=== PATIENT | female | born 1965 | race Caucasian/White ===

== ENCOUNTER 2022-09-16 08:58 | Outpatient (OUT) | payer OTHER, SELFPAY ==
--- NOTE | 2022-09-16 09:11 | MM_ITS ---
Patient: KASSANDRA LOPEZ Exam Date: 09/16/2022 : 1965 Gender:F Ordering : DR Rojelio Lau . Admission #: [id number] Family : Order #: [id number] CLICK HERE TO VIEW EXAM RADIOLOGY REPORT PROCEDURE: MM TOMOSYNTHESIS SCREENING BI COMPARISON: MG MAMM SCREEN 3D NELSON CAD, 04/11/2021. MG MAMM NELSON SCRN W CAD DIG, 12/18/2015. MG MAMM NELSON SCRN W CAD DIG, 09/27/2014. MG MAMM NELSON SCRN W CAD DIG, 06/21/2012. INDICATIONS: Screening Calculator Name NCI Breast Cancer Risk Assessment Tool 5 Year Breast Cancer Risk 1.10% Lifetime Breast Cancer Risk 7.10% Personal Breast Cancer No Personal Ovarian Cancer No Treatments None Family Cancers None LOCATION: [facility] BREAST COMPOSITION: Scattered areas fibroglandular density. FINDINGS: DIAGNOSTIC CATEGORY 2--BENIGN FINDING: RIGHT BREAST: No significant suspicious finding. No significant change has occurred. LEFT BREAST: No significant suspicious finding. Scattered benign-appearing lymph nodes are present. No significant change has occurred. RECOMMENDATIONS: ROUTINE MAMMOGRAM AND CLINICAL EVALUATION IN 12 MONTHS. PLEASE NOTE: A NORMAL MAMMOGRAM DOES NOT EXCLUDE THE POSSIBILITY OF BREAST CANCER. A CLINICALLY SUSPICIOUS PALPABLE LUMP SHOULD BE BIOPSIED. Dictated by: Evan Carlin M.D. on 09/16/2022 at 14:03 Approved by: Evan Carlin M.D. on 09/16/2022 at 14:09
== END 2022-09-16 08:59 ==
LOC: MAMMO 09:04
PROVIDERS: PCP Family Medicine; Visit Provider Family Medicine
DX: Z12.31 Encounter for screening mammogram for malignant neoplasm of breast (principal)
CPT/HCPCS: 77063; 77067

== ENCOUNTER 2022-12-02 08:09 | Outpatient (RCR) | payer OTHER, SELFPAY | END 2023-04-05 08:09 | disposition home or self-care (01) | LOC: OT 08:09 | PROVIDERS: PCP Family Medicine; Visit Provider Nurse Practitioner Family | DX: G56.02 Carpal tunnel syndrome, left upper limb (principal); Z98.890 Other specified postprocedural states | CPT/HCPCS: 97035; 97140; 97166; 97530 ==

== ENCOUNTER 2023-01-22 15:40 | Outpatient (OUT) | payer OTHER, SELFPAY ==
--- NOTE | 2023-01-22 | XR_ITS ---
The [address] [address] Patient Name: KASSANDRA LOPEZ MRN: [id number] date: 1965 Sex: F Assigned Patient Location: [facility] Current Patient Location: [facility] Accession/Order Number: [id number] Exam Date: 01/22/2023 10:30 Report Date: 01/22/2023 13:05 At the request of: NOEMI ORELLANA Procedure: XR foot LT min 3V EXAM: XR foot LT min 3V HISTORY: LEFT FOOT PAIN . The patient has pain in the heel for the past 6 months. COMPARISON: None. TECHNIQUE: 4 views of the left foot were obtained. FINDINGS: There is no evidence of an acute fracture or dislocation. A small calcification or possibly a remote chip fracture seen at the base of the fifth metatarsal bone. The joint spaces are relatively intact throughout. A small osteophyte arises from the plantar aspect of the calcaneus. A small amount of calcification is seen in the Achilles tendon near the insertion site. No other soft tissue calcifications are identified. XR/XR foot LT min 3V IMPRESSION: No acute fracture or dislocation. The joint spaces are intact. A small osteophyte arises from the plantar aspect of the calcaneus. Direct comparison with a previous study would be helpful in confirming the chronicity of these findings. Electronically authenticated by: POLY HENSLEY Date: 01/22/2023 13:05
== END 2023-01-22 15:41 | disposition home or self-care (01) ==
LOC: RAD 15:40
PROVIDERS: PCP Family Medicine; Visit Provider Physician Assistant
DX: M79.672 Pain in left foot (principal)
CPT/HCPCS: 73630

== ENCOUNTER 2023-01-28 07:26 | Outpatient (RCR) | payer OTHER, SELFPAY | END 2023-04-05 08:00 | disposition home or self-care (01) | LOC: PT 07:26 | PROVIDERS: PCP Family Medicine; Visit Provider Physician Assistant | DX: M72.2 Plantar fascial fibromatosis (principal) | CPT/HCPCS: 97110; 97112; 97140; 97162 ==

== ENCOUNTER 2023-04-06 09:11 | Outpatient (RCR) | payer OTHER, SELFPAY | END 2023-04-07 15:49 | disposition home or self-care (01) | LOC: PT 09:11 | PROVIDERS: PCP Family Medicine; Visit Provider Physician Assistant | DX: M72.2 Plantar fascial fibromatosis (principal) ==

== ENCOUNTER 2023-04-23 08:21 | Outpatient (OUT) | payer OTHER, SELFPAY ==
--- OUTSIDE RECORDS SUMMARY | 2023-04-23 08:24 | XMS_ITS | CCD ---
Author Name Unknown Address [address] [place] [address] Organization [facility] Care Team Providers Care Migrant Leader Name Role Phone Shai Lau Primary Care Physician Daniel SALMON Attending Unavailable SALMON, Daniel Rios Attending Unavailable SALMON ., DR DRUMMOND Consulting Unavailable SALMON ., DR DRUMMOND Attending Unavailable HOY ., DR GIBBONS Primary Care Unavailable SALMON ., DR DRUMMOND Admitting Unavailable HOY ., DR GIBBONS Primary Care Unavailable HOY ., DR GIBBONS Admitting Unavailable HOY ., DR GIBBONS Attending Unavailable HOY ., DR GIBBONS Consulting Unavailable SALMON ., DR DRUMMOND Consulting Unavailable SALMON ., DR DRUMMOND Admitting Unavailable HOY ., DR GIBBONS Primary Care Unavailable SALMON ., DR DRUMMOND Attending Unavailable SALMON ., DR DRUMMOND Admitting Unavailable SALMON ., DR DRUMMOND Attending Unavailable HOY ., DR GIBBONS Primary Care Unavailable SALMON ., DR DRUMMOND Consulting Unavailable ZIEBER, DR WIL Rios Consulting Unavailable HOY ., DR GIBBONS Admitting Unavailable HOY ., DR GIBBONS Attending Unavailable HOY ., DR GIBBONS Consulting Unavailable HOY ., DR GIBBONS Primary Care Unavailable HOY ., DR SHAI Moyaitting Unavailable HOY ., DR GIBBONS Attending Unavailable HOY ., DR GIBBONS Consulting Unavailable HOY ., DR GIBBONS Primary Care Unavailable MAX KOWALSKI Attending Unavailable SKIE, MAX Attending Unavailable SKIEMAX Admitting Unavailable INDIRAE, MAX Attending Unavailable SKIE, MAX Attending Unavailable SKIE, MAX Attending Unavailable Allergies Allergy Classification Reported Allergen(s) Allergy Type Date of Onset Reaction(s) Facility (5 sources) levoFLOXacin; Translations: [levofloxacin] Drug Allergy 02-22-20 16 .. [facility] (5 sources) PHENobarbital; Translations: [phenobarbital] Drug Allergy 07-07-19 15 .. [facility] (4 sources) Sulfonamides (Antibiotic); Translations: [sulfa drugs] Drug allergy RASH [facility] (1 source) benzoin resin Drug Allergy 08-21-19 16 [facility] (1 source) levoFLOXacin Drug Allergy 08-21-19 16 [facility] (1 source) Sulfonamides (Antibiotic) Drug allergy (disorder) 08-21-19 16 [facility] (1 source) Sulfamethoxazole / Trimethoprim; Translations: [SULFAMETHOXAZOLE-TR IMETHOPRIM] Drug Allergy 07-07-19 15 [facility] (1 source) Sulfonamides (Antibiotic); Translations: [SULFA (SULFONAMIDE ANTIBIOTICS)] Propensity to adverse reactions to drug (disorder) 12-20-19 15 [facility] Medications Current Medications Medication Drug Class(es) Dates Sig (Normalized) Sig (Original) Airborne Gummies (3 sources) Start: 04-16-2020 Airborne Gummies Chewed, Daily Start Date: 04/16/20 Status: Ordered cephalexin 500 mg oral capsule (2 sources) Cephalosporin Antibacterial Start: 07-02-2021 End: 07-09-2021 take 1 capsule by mouth every twelve hours Keflex 500 mg Cap 500 mg = 1 cap(s), Oral, q12hr, X 7 day(s), # 14 cap(s), Refills(s) 0, Pharmacy: [facility]/pharmacy #[id number], 161, cm, 05/13/21 9:04:00 EST, Height/Length Dosing, 91.5, kg, 05/13/21 9:04:00 EST, Weight Dosing Start Date: 07/02/21 Stop Date: 07/09/21 Status: Ordered fluconazole 150 mg oral tablet (2 sources) Azole Antifungal Start: 07-02-2021 End: 07-09-2021 Diflucan 150 mg Tab See Instructions, 1 tab po q72 hrs x 3 doses, then dc, # 3 tab(s), Refills(s) 0, Pharmacy: [facility]/pharmacy #[id number], 161, cm, 05/13/21 9:04:00 EST, Height/Length Dosing, 91.5, kg, 05/13/21 9:04:00 EST, Weight Dosing Start Date: 07/02/21 Stop Date: 07/09/21 Status: Ordered Prevacid (3 sources) Proton Pump Inhibitor Start: 09-19-2019 Prevacid Oral, Daily, Refills(s) 0 Start Date: 09/19/19 Status: Ordered Multivitamin, Therapeutic w/ Minerals (3 sources) Start: 01-11-2016 take 1 tablet by mouth once daily Multivitamin, Therapeutic w/ Minerals 1 tab(s), Oral, Daily, Refill(s) 0, Prophylaxis Start Date: 01/11/16 Status: Ordered Problems Active Problems Problem Classification Problem Date Documented Date Episodic/Chronic Abdominal pain (3 sources) Abdominal pain 04-16-2020 Episodic Calculus of urinary tract (9 sources) Kidney stone; Translations: [Calculus of kidney] Onset: 3 05-30-2019 Episodic Disorders of lipid metabolism (1 source) Pure hypercholesterolemia, unspecified; Translations: [PURE HYPERCHOLESTEROLEMIA UNSPEC] Onset: 3 Chronic Genitourinary symptoms and ill-defined conditions (5 sources) Female stress incontinence; Translations: [Stress incontinence (female) (male)] Onset: 3 05-30-2019 Chronic Genitourinary symptoms and ill-defined conditions (10 sources) Microscopic hematuria; Translations: [Other microscopic hematuria] Onset: 2 Episodic Malaise and fatigue (1 source) Other fatigue; Translations: [OTHER FATIGUE] Onset: 3 Episodic Other nervous system disorders (2 sources) Carpal tunnel syndrome, left upper limb; Translations: [Carpal tunnel syndrome, left upper limb] Onset: 3 Chronic Other screening for suspected conditions (not mental disorders or infectious disease) (1 source) Encounter for screening for malignant neoplasm of colon; Translations: [ENC SCREEN MALIG NEOPLASM COLON] Onset: 3 Episodic Residual codes; unclassified (2 sources) Pain; Translations: [Pain] Onset: 3 Episodic Unclassified (3 sources) CONTACT W/AND (SUSP) EXPOS COVID-19; Translations: [CONTACT W/AND (SUSP) EXPOS COVID-19] Onset: 2 Unclassified (2 sources) Post-op; Translations: [Post-op] Onset: 3 Urinary tract infections (5 sources) Chronic cystitis; Translations: [Other chronic cystitis without hematuria] Onset: 3 04-16-2020 Chronic Urinary tract infections (3 sources) Urinary tract infectious disease 04-16-2020 Episodic Past or Other Problems Problem Classification Problem Date Documented Da te Episodic/Chronic Unclassified (1 source) CONTACT W/AND (SUSP) EXPOS COVID-19; Translations: [CONTACT W/AND (SUSP) EXPOS COVID-19] Onset: 11-15-2021 Results Test Name Value Interpretation Reference Range Facility Follow-Upon 02-10-2023 Follow-Up [id number] Kassandra Lopez 1965 Date Provider Department Center 02/10/2023 MAX MUSTAFA MP Family History Family history unknown: Yes Level of Service:13980 [place] OFFICE/OUTPATIENT ESTABLISHED LOW MDM 20-29 MIN Reason for Visit and Comments: Follow-up [343304] [facility] Follow-Upon 11-26-2022 Follow-Up [id number] Kassandra Lopez 1965 Provider Department Center 11/26/2022 MAX MUSTAFA MP Family History Family history unknown: Yes Level of Service:09205 [place] OFFICE/OUTPATIENT ESTABLISHED LOW MDM 20-29 MIN Reason for Visit and Comments: Pain [136] Follow-up [[id number]] [facility] Office Visiton 10-15-2022 Follow-up visit [id number] Kassandra Lopez 1965 Date Provider Department Center 10/15/2022 MAX MUSTAFA MP Family History Family history unknown: Yes Level of Service:91388 [place] POSTOP FOLLOW UP VISIT RELATED TO ORIGINAL PX (GC) Reason for Visit and Comments: Post-op [483] Follow-up [099182] [facility] 36on 10-02-2022 36 I spoke to the patient to see how she is doing after her recent surgery with Dr Kowalski. Ms Lopez stated she is doing well and that her pain is manageable with medications. She has a follow up with Dr Kowalski on October 15 at 120. She had no other questions or concerns. [facility] HPon 10-01-2022 History Of Present Illness Guillermina Lopez is a 57 y.o. female presenting with L CTS. She is scheduled for a release today. Past Medical History She has a past medical history of GERD (gastroesophageal reflux disease), Kidney stone, and Migraines. Surgical History She has a past surgical history that includes Lithotripsy; Carpal tunnel release (Right); Tonsillectomy; Back surgery; and Hand surgery (Left). Social History She reports that she has never smoked. She has never used smokeless tobacco. She reports current alcohol use. She reports that she does not use drugs. Family History No family history on file. Allergies Levofloxacin, Phenobarbital, Sulfa (sulfonamide antibiotics), and Sulfamethoxazole-tri methoprim Medications Medications Prior to Admission Medication Sig Dispense Refill Last Dose aspirin-acetaminophe n-caffeine (Excedrin Migraine) 250-250-65 mg tablet Take 1 tablet by mouth every 6 (six) hours if needed for headaches. Past Month calcium 500 mg calcium (1,250 mg) tablet Take 1 tablet by mouth in the morning. Past Week lansoprazole (Prevacid) [address] capsule Take 30 mg by mouth before breakfast. Do not crush or chew. 09/30/2022 multivitamin tablet Take 1 tablet by mouth in the morning. Past Week phentermine (Adipex-P) 37.5 mg tablet Take 37.5 mg by mouth before breakfast. 09/30/2022 Review of Systems Last Recorded Vitals Visit Vitals BP 132/71 Pulse 87 Temp 36.2 ???C (97.2 ???F) (Temporal) Resp 18 Ht 1.6 m (5' 3 ) Wt 88.2 kg (194 lb 7.1 oz) SpO2 99% BMI 34.44 kg/m??? Smoking Status Never BSA 1.98 m??? Physical Exam Constitutional: Appearance: Normal appearance. Cardiovascular: Rate and Rhythm: Normal rate. Pulmonary: Effort: Pulmonary effort is normal. Abdominal: Palpations: Abdomen is soft. Musculoskeletal: Comments: (+) Tinnel's at the wrists. Neurological: Mental Status: She is alert. Relevant Lab Results No results found for: NA, K, CL, CO2, BUN, CREATININE, GLUCOSE, CALCIUM, ANIONGAP, EGFR, BCR Relevant Imaging Results No image results found. Assessment/Plan Principal Problem: Carpal tunnel syndrome on left Active Problems: Hyperlipidemia L C TR Normal [facility] OPNOTEon 10-01-2022 OPNOTE Operative Note Patient: Guillermina Lopez Date of Surgery: 10/01/2022 : 1965 Pre-operative Diagnosis: Carpal Tunnel Syndrome left Hand Post-operative Diagnosis: same Operation: Carpal Tunnel Release, left (78445) Surgeon: Max Kowalski MD Pipe Chipper: Drew Chacon MD Staff: Workforce Planning Analyst: Mayte Chery RN Scrub Person: Cayetano Ace Anesthesia Type: MAC Indications: The patient is an 57 y.o. female with a history of night pain and numbness of the left hand. The physical examination and work-up are consistent with that of carpal tunnel syndrome. This has been an ongoing, and worsening, problem despite nonoperative means of treatment. It is felt that surgical management is appropriate at this point in time. The patient is brought to the operating room today for that purpose.The risks and benefits of the procedure were explained preoperatively, and with good understanding it is agreed to proceed. Procedure: The patient is brought to the operating room and placed on the table in a supine position. The left arm was placed on a hand table. A tourniquet is placed around the proximal arm, and the left arm is formally prepped and draped out in a sterile fashion. To begin the procedure, after a standard timeout, The patient is sedated per the anesthesia service, and the operative site is anesthetized with 1% lidocaine. The arm is exsanguinated with an Esmarch bandage and the tourniquet is inflated to 250 mmHg. Using a 15 blade, a 2-1/2 cm incision is made between the thenar and hyperthenar regions on the left palm. Sharp dissection is carried out through the subcutaneous tissue. Superficial blood vessels were cauterized with a Bovie. Two Chelsea rakes were used to retract the skin edges. The palmar fascia is split in line with our skin incision. There is a palmaris brevis muscle that was split in line with our dissection. Additional care was taken to watch for an abnormal motor branch. This brought us down to the transverse carpal ligament where I could clearly see the ligament, it is opened up in a gradual fashion using a knife blade working from distal to proximal. Switching to a tenotomy scissor, we bluntly dissected through the most distal portion of the ligament until that is completely released. The proximal end of the ligament is undermined and then split sharply with a scissor. I could use the tip of the scissors to palpate the release to make sure that it was complete. Once satisfied with that, the median nerve is bluntly dissected out and there is no noted abnormality. The wound is irrigated with normal saline solution. The skin is closed with 5-0 Novafil suture. A sterile dressing of Xeroflo gauze, 4 x 4 fluffs, Aaron and an Danny bandage is applied. The tourniquet was released. The drapes were removed, and the patient was brought to the recovery area in stable condition, having tolerated the procedure well. Estimate Blood Loss: Minimal Specimens: No specimens collected Complications: None Disposition: PACU Condition: stable Max Kowalski MD Normal [facility] POCT GLUCOSE METER UNSOLICIT ED RESULTSon 10-01-2022 Glucose [Mass/Vol] 91 mg/dL Normal 70-105 [facility] Comment on above: Order Comment: Waive d Testing in the ED is performed under the ED CLIA certificate #[id number]. Result Comment: epaw low Performed By: #### L [id number] ####[facility] ([facility] [place] [address] [id number] 09-24-2022 [id number] NPO AFTER MIDNIGHT. MUST HAVE A MANAGER OF INTERNATIONAL TO TAKE YOU HOME AND SOMEONE TO STAY FOR 24 HOURS AFTER SURGERY. NO JEWELRY OR VALUABLES. HOLD THE MEDS WE SPOKE ABOUT: VITAMINS STARTING 09-27. TAKE THE MEDS WE SPOKE ABOUT WITH A SIP OF WATER DOS: PREVACID, ADIPEX. BRING INSURANCE CARD AND PHOTO ID AND MED LIST. Normal [facility] CITRATE URINE 24HRon 023 Citric Acid, U, 24hr 363 mg/24 hr Normal 320-1240 [facility] Comment on above: Result Comment: This test was developed and its performance characteristics determined by [facility]. It has not been cleared or approved by the Food and Drug Administration. Performed By: #### C ITRATU #### [facility] [address] [place] [address] Dr. Prabhu Lopez Citric Acid, Urine 338 mg/L Normal Undefined [facility] Comment on above: Performed By: #### C ITRATU #### [facility] [address] [place] [address] Dr. Prabhu Lopez OXALATE 24HR URINEon 023 Oxalates, Urine 15 mg/L Normal Undefined [facility] Comment on above: Performed By: #### O X24HR #### [facility] [address] [place] [address] Dr. Prabhu Lopez Oxalates, Urine 24hr 16 mg/24 hr Normal [facility] Comment on above: Performed By: #### O X24HR #### [facility] [address] [place] [address] Dr. Prabhu Lopez Lab Reportson 08-17-2022 Lab Reports [id number] #1.00CD:127 Normal [facility] Lab Reports [id number] #1.00CD:127 Normal [facility] Lab Reports [id number] #1.00CD:127 Normal [facility] MAGNESIUM 24HR URINEon 08-15 Magnesium 24hr Urine 94.6 mg/24 hr Normal 12.0-293.0 [facility] Comment on above: Performed By: #### U JESI, BMP #### [facility] [address] [place] [address] Dr. Prabhu Lopez Magnesium UR 8.8 mg/dL Normal Not Estab. [facility] Comment on above: Performed By: #### U JESI, BMP #### [facility] [address] [place] [address] Dr. Prabhu Lopez PHOSPHORUS 24HR URINEon 08-04 Phosphorus, Urine 48.2 mg/dL Normal Not Estab. [facility] Comment on above: Performed By: #### P HOS 24 #### [facility] [address] [place] [address] Dr. Prabhu Lopez Phosphorus, Urine 24hr 518 mg/24 hr Normal 261-1078 [facility] Comment on above: Performed By: #### P HOS 24 #### [facility] [address] [place] [address] Dr. Prabhu Lopez URIC ACID 24 HR URINEon 08-04 Uric Acid, Urine 29.6 mg/dL Normal Not Estab. [facility] Comment on above: Performed By: #### U JESI, BMP #### [facility] [address] [place] [address] Dr. Prabhu Lopez Uric Acid, Urine 24hr 318.2 mg/24 hr Normal 173.7-902.1 [facility] Comment on above: Performed By: #### U JESI, BMP #### [facility] [address] [place] [address] Dr. Prabhu Lopez CALCIUM 24 HR URINEon 2022 CALC, 24 HR UR 76.3 mg/24 hr Critically low 100.0-300.0 [facility] Comment on above: Performed By: #### C [id number] #### [facility] [address] [place] [address] Dr. Prabhu Lopez UR CALCIUM 7.1 mg/dL Normal 5.1-21.0 [facility] Comment on above: Performed By: #### C ALC24U #### [facility] [address] [place] [address] Dr. Prabhu Lopez UR TOT VOL 1075 ml/24 HR Normal [facility] Comment on above: Performed By: #### C ALC24U #### [facility] [address] [place] [address] Dr. Prabhu Lopez Performed By: #### N A24U, [id number] #### [facility] [address] [place] [address] Dr. Prabhu Lopez CBC AUTO DIFFon 05-11-2023 BASO # 0.1 103/ul Normal 0.0-0.1 [facility] Comment on above: Performed By: #### U EJSI, BMP #### [facility] [address] [place] [address] Dr. Prabhu Lopez Basophils/100 WBC (Bld) 1.3 % Normal 0.2-2.0 [facility] Comment on above: Performed By: #### U JESI, BMP #### [facility] [address] [place] [address] Dr. Prabhu Lopez EO # 0.3 103/ul Normal 0.0-0.7 [facility] Comment on above: Performed By: #### U JESI, BMP #### [facility] [address] [place] [address] Dr. Prabhu Lopez Eosinophils/100 WBC (Bld) 5.2 % Normal 0.9-7.0 [facility] Comment on above: Performed By: #### U JESI, BMP #### [facility] [address] [place] [address] Dr. Prabhu Lopez Erythrocyte distribution width (RBC) [Ratio] 12.9 % Normal 11.0-15.0 [facility] Comment on above: Performed By: #### U JESI, BMP #### [facility] [address] [place] [address] Dr. Prabhu oLpez Hematocrit (Bld) [Volume fraction] 42.7 % Normal 36.0-48.0 [facility] Comment on above: Performed By: #### U JESI, BMP #### [facility] [address] [place] [address] Dr. Prabhu Lopez Hemoglobin (Bld) [Mass/Vol] 13.4 g/dL Normal 12.0-16.0 [facility] Comment on above: Performed By: #### U JESI, BMP #### [facility] [address] [place] [address] Dr. Prabhu Lopez IG # 0.02 10e3/ul Normal 0.00-0.03 [facility] Comment on above: Performed By: #### U JESI, BMP #### [facility] [address] [address] [address] Prabhu Lopez IG % 0.4 % Normal 0.0-0.5 [facility] Comment on above: Performed By: #### U JESI, BMP #### [facility] [address] [place] [address] Dr. Prabhu Lopez LYMPH # 2.0 103/ul Normal 1.2-3.8 [facility] Comment on above: Performed By: #### U JESI, BMP #### [facility] [address] [place] [address] Dr. Prabhu Lopez Lymphocytes/100 WBC (Bld) 41.5 % Normal 20.5-60.0 [facility] Comment on above: Performed By: #### U JESI, BMP #### [facility] [address] [place] [address] Dr. Prabhu Lopez MANUAL DIFF REQ NO Normal [facility] Comment on above: Performed By: #### U JESI, BMP #### [facility] [address] [place] [address] Dr. Prabhu Lopez MCH (RBC) [Entitic mass] 28.7 pg Normal 26.7-34.0 [facility] Comment on above: Performed By: #### U JESI, BMP #### [facility] [address] [place] [address] Dr. Prabhu Lopez MCHC (RBC) [Mass/Vol] 31.4 g/dL Normal 29.9-35.2 [facility] Comment on above: Performed By: #### U JESI, BMP #### [facility] [address] [place] [address] Dr. Prabhu Lopez MCV (RBC) [Entitic vol] 91.4 fL Normal 81.0-99.0 [facility] Comment on above: Performed By: #### U JESI, BMP #### [facility] [address] [place] [address] Dr. Prabhu Lopez MONO # 0.4 103/ul Normal 0.3-0.8 [facility] Comment on above: Performed By: #### U JESI, BMP #### [facility] [address] [place] [address] Dr. Prabhu Lopez Monocytes/100 WBC (Bld) 8.3 % Normal 1.7-12.0 [facility] Comment on above: Performed By: #### U JESI, BMP #### [facility] [address] [place] [address] Dr. Prabhu Lopez NEUT # 2.1 103/ul Normal 1.4-6.5 [facility] Comment on above: Performed By: #### U JESI, BMP #### [facility] [address] [place] [address] Dr. Prabhu Lopez Neutrophils/100 WBC (Bld) 43.3 % Normal 43.0-75.0 [facility] Comment on above: Performed By: #### U JESI, BMP #### [facility] [address] [place] [address] Dr. Prabhu Lopez Platelet mean volume (Bld) [Entitic vol] 11.7 fL Normal 9.5-13.5 [facility] Comment on above: Performed By: #### U JESI, BMP #### [facility] [address] [place] [address] Dr. Prabhu Lopez PLT 237 103/ul Normal 150-450 [facility] Comment on above: Performed By: #### U JESI, BMP #### [facility] [address] [place] [address] Dr. Prabhu Lopez RBC 4.67 106/ul Normal 4.20-5.40 [facility] Comment on above: Performed By: #### U JESI, BMP #### [facility] [address] [place] [address] Dr. Prabhu Lopez WBC 4.8 103/ul Normal 4.0-11.0 [facility] Comment on above: Performed By: #### U JESI, BMP #### [facility] [address] [place] [address] Dr. Prabhu Lopez CREA 24 HR URINEon 3 CREA, 24 HR UR 875.48 mg/24 hr Normal 800.00-1,8 00.0 0 [facility] Comment on above: Performed By: #### N A24U, [id number] #### [facility] [address] [address] [address] Prabhu Lopez URINE CREAT 81.44 mg/dL Normal 20.00-300.00 [facility] Comment on above: Performed By: #### N A24U, [id number] #### [facility] [address] [place] [address] Dr. Prabhu Lopez FREE THYROXINE INDEX T7on FTI 2.34 Normal 1.30-4.50 [facility] Comment on above: Performed By: #### U JESI, BMP #### [facility] [address] [place] [address] Dr. Prabhu Lopez T3U 33.0 % Normal 30.0-39.0 [facility] Comment on above: Performed By: #### U JESI, BMP #### [facility] [address] [place] [address] Dr. Prabhu Lopez T4 [Mass/Vol] 7.10 ug/dL Normal 4.80-13.90 [facility] Comment on above: Performed By: #### U JESI, BMP #### [facility] [address] [place] [address] Dr. Prabhu Lopez GLYCOHEMOGLOBIN A1Con 2022 ADA RECOMMENDATION SEE BELOW Normal [facility] Comment on above: Result Comment: ADA RECOMMENDED LIMIT 4.0 - 6.0 ADA THERAPEUTIC TARGET < 7.0 ACTION SUGGESTED > 7.0 Performed By: #### U JESI, BMP #### [facility] [address] [place] [address] Dr. Prabhu Lopez Glucose [Mass/Vol] 123 mg/dL Normal [facility] Comment on above: Performed By: #### U JEIS, BMP #### [facility] [address] [place] [address] Dr. Prabhu Lopez HbA1c (Bld) [Mass fraction] 5.9 % Normal 4.5-6.2 [facility] Comment on above: Performed By: #### U JESI, BMP #### [facility] [address] [place] [address] Dr. Prabhu Lopez LIPID PROFILEon 08-14-2022 CHOL-HDL RATIO NORM SEE BELOW Normal [facility] Comment on above: Result Comment: 3.3 - 4.4 LOW RISK 4.4 - 7.1 AVERAGE RISK 7.1 - 11.0 MODERATE RISK >11.0 HIGH RISK Performed By: #### U JEIS, BMP #### [facility] [address] [address] [address] Prabhu Lopez Cholesterol [Mass/Vol] 255 mg/dL Critically high <=200 [facility] Comment on above: Performed By: #### U JESI, BMP #### [facility] [address] [address] [address] Prabhu Lopez Cholesterol in HDL [Mass/Vol] 80 mg/dL Critically high 40-60 [facility] Comment on above: Performed By: #### U JESI, BMP #### [facility] [address] [address] [address] Prabhu Lopez Cholesterol in LDL [Mass/Vol] 156.6 mg/dL Normal [facility] Comment on above: Performed By: #### U JESI, BMP #### [facility] [address] [address] [address] Prabhu Lopez Cholesterol.total/Ch olesterol in HDL [Mass ratio] 3.2 {ratio} Normal [facility] Comment on above: Performed By: #### U JESI, BMP #### [facility] [address] [address] [address] Prabhu Lopez HDL NORMAL > or = 60 mg/dl - LOW CARDIOVASCULAR RISK <40 mg/dl - HIGH CARDIOVASCULAR RISK Normal [facility] Comment on above: Performed By: #### U JESI, BMP #### [facility] [address] [address] [address] Prabhu Lopez LDL CALC NORMAL SEE BELOW Normal [facility] Comment on above: Result Comment: <100 mg/dl OPTIMAL 100 - 129 mg/dl NEAR OR ABOVE OPTIMAL 130 - 159 mg/dl BORDERLINE HIGH 160 - 189 mg/dl HIGH >190 mg/dl VERY HIGH Performed By: #### U JESI, BMP #### [facility] [address] [place] [address] Dr. Prabhu Lopez Triglyceride [Mass/Vol] 92 mg/dL Normal <=150 [facility] Comment on above: Performed By: #### U JESI, BMP #### [facility] [address] [place] [address] Dr. Prabhu Lopez VLDL CALC 18.4 mg/dL Normal [facility] Comment on above: Performed By: #### U JESI, BMP #### [facility] [address] [place] [address] Dr. Prabhu Lopze PROF 14(COMP METB)on 023 Albumin [Mass/Vol] 3.9 g/dL Normal 3.4-5.0 [facility] Comment on above: Performed By: #### U JESI, BMP #### [facility] [address] [place] [address] Dr. Prabhu Lopez Albumin/Globulin [Mass ratio] 0.8 {ratio} Normal [facility] Comment on above: Performed By: #### U JESI, BMP #### [facility] [address] [place] [address] Dr. Prabhu Lopez ALP [Catalytic activity/Vol] 74 U/L Normal 46-116 [facility] Comment on above: Performed By: #### U JESI, BMP #### [facility] [address] [place] [address] Dr. Prabhu Lopez ALT [Catalytic activity/Vol] 29 U/L Normal 14-59 [facility] Comment on above: Performed By: #### U JESI, BMP #### [facility] [address] [place] [address] Dr. Prabhu Lopez Anion gap [Moles/Vol] 10.9 mmol/L Normal [facility] Comment on above: Performed By: #### U JESI, BMP #### [facility] [address] [place] [address] Dr. Prabhu Lopez AST [Catalytic activity/Vol] 22 U/L Normal 15-37 [facility] Comment on above: Performed By: #### U JESI, BMP #### [facility] [address] [place] [address] Dr. Prabhu Lopez Bilirubin [Mass/Vol] 0.7 mg/dL Normal 0.2-1.0 [facility] Comment on above: Performed By: #### U JESI, BMP #### [facility] [address] [place] [address] Dr. Prabhu Lopez Calcium [Mass/Vol] 8.9 mg/dL Normal 8.5-10.1 [facility] Comment on above: Performed By: #### U JESI, BMP #### [facility] [address] [place] [address] Dr. Prabhu Lopez Chloride [Moles/Vol] 106 mmol/L Normal 98-107 [facility] Comment on above: Performed By: #### U JESI, BMP #### [facility] [address] [place] [address] Dr. Prabhu Lopez CO2 [Moles/Vol] 30.1 mmol/L Normal 21.0-32.0 [facility] Comment on above: Performed By: #### U JESI, BMP #### [facility] [address] [place] [address] Dr. Prabhu Lopez Creatinine [Mass/Vol] 0.94 mg/dL Normal 0.55-1.02 [facility] Comment on above: Performed By: #### U JESI, BMP #### [facility] [address] [place] [address] Dr. Prabhu Lopez EGFR-AF IRISH >60 Normal >=60 [facility] Comment on above: Performed By: #### U JESI, BMP #### [facility] [address] [place] [address] Dr. Prabhu Lopez EGFR-NON AF IRISH >60 Normal >=60 [facility] Comment on above: Performed By: #### U JESI, BMP #### [facility] [address] [place] [address] Dr. Prabhu Lopez Globulin (S) [Mass/Vol] 4.8 g/dL Normal [facility] Comment on above: Performed By: #### U JESI, BMP #### [facility] [address] [place] [address] Dr. Prabhu Lopez Glucose [Mass/Vol] 96 mg/dL Normal 74-106 [facility] Comment on above: Performed By: #### U JESI, BMP #### [facility] [address] [place] [address] Dr. Prabhu Lopez Potassium [Moles/Vol] 4.0 mmol/L Normal 3.5-5.1 [facility] Comment on above: Performed By: #### U JESI, BMP #### [facility] [address] [address] [address] Prabhu Lopez Protein [Mass/Vol] 8.7 g/dL Critically high 6.4-8.2 [facility] Comment on above: Performed By: #### U JESI, BMP #### [facility] [address] [place] [address] Dr. Prabhu Lopez Sodium [Moles/Vol] 143 mmol/L Normal 136-145 [facility] Comment on above: Performed By: #### U JESI, BMP #### [facility] [address] [place] [address] Dr. Prabhu Lopez Urea nitrogen [Mass/Vol] 13.0 mg/dL Normal 7.0-18.0 [facility] Comment on above: Performed By: #### U JEIS, BMP #### [facility] [address] [place] [address] Dr. Prabhu Lopez Urea nitrogen/Creatinine [Mass ratio] 13.8 mg/mg Normal [facility] Comment on above: Performed By: #### U JESI, BMP #### [facility] [address] [place] [address] Dr. Prabhu Lopez PTH INTACTon 08-14-2022 PTH, Intact 17 pg/mL Normal 15-65 [facility] Comment on above: Performed By: #### U JESI, BMP #### [facility] [address] [place] [address] Dr. Prabhu Lopez SODIUM 24 HR URINEon 023 NA, 24 HR UR 111 mmol/24 hr Normal 40-220 [facility] Comment on above: Performed By: #### N A24U, [id number] #### [facility] [address] [place] [address] Dr. Prabhu Lopez Sodium (U) [Moles/Vol] 103 mmol/L Critically high 30-90 [facility] Comment on above: Performed By: #### N A24U, [id number] #### [facility] [address] [place] [address] Dr. Parbhu Lopez TSHon 08-14-2022 TSH 2.531 uIU/mL Normal 0.358-3.740 [facility] Comment on above: Performed By: #### U JESI, BMP #### [facility] [address] [place] [address] Dr. Prabhu Lopez PROF CHEM 8 (BAS METB)on Anion gap [Moles/Vol] 8.9 mmol/L Normal [facility] Comment on above: Performed By: #### U JESI, BMP #### [facility] [address] [place] [address] Dr. Prabhu Lopez Calcium [Mass/Vol] 9.3 mg/dL Normal 8.5-10.1 [facility] Comment on above: Performed By: #### U JESI, BMP #### [facility] [address] [place] [address] Dr. Prabhu Lopez Chloride [Moles/Vol] 108 mmol/L Critically high 98-107 [facility] Comment on above: Performed By: #### U JESI, BMP #### [facility] [address] [place] [address] Dr. Prabhu Lopez CO2 [Moles/Vol] 28.5 mmol/L Normal 21.0-32.0 [facility] Comment on above: Performed By: #### U JESI, BMP #### [facility] [address] [place] [address] Dr. Prabhu Lopez Creatinine [Mass/Vol] 1.08 mg/dL Critically high 0.55-1.02 [facility] Comment on above: Performed By: #### U JESI, BMP #### [facility] [address] [place] [address] Dr. Prabhu Lopez EGFR-AF IRISH >60 Normal >=60 [facility] Comment on above: Performed By: #### U JESI, BMP #### [facility] [address] [address] [address] Prabhu Lopez EGFR-NON AF IRISH 52 mL/min/1.73m2 Critically low >=60 [facility] Comment on above: Performed By: #### U JESI, BMP #### [facility] [address] [address] [address] Prabhu Lopez Glucose [Mass/Vol] 94 mg/dL Normal 74-106 [facility] Comment on above: Performed By: #### U JESI, BMP #### [facility] [address] [address] [address] Prabhu Lopez Potassium [Moles/Vol] 3.4 mmol/L Critically low 3.5-5.1 [facility] Comment on above: Performed By: #### U JESI, BMP #### [facility] [address] [place] [address] Dr. Prabhu Lopez Sodium [Moles/Vol] 142 mmol/L Normal 136-145 [facility] Comment on above: Performed By: #### U JESI, BMP #### [facility] [address] [place] [address] Dr. Prabhu Lopez Urea nitrogen [Mass/Vol] 17.0 mg/dL Normal 7.0-18.0 [facility] Comment on above: Performed By: #### U JESI, BMP #### [facility] [address] [place] [address] Dr. Prabhu Lopez Urea nitrogen/Creatinine [Mass ratio] 15.7 mg/mg Normal [facility] Comment on above: Performed By: #### U JESI, BMP #### [facility] [address] [place] [address] Dr. Prabhu Lopez URIC ACID SERUMon 08-12-2022 Urate [Mass/Vol] 4.8 mg/dL Normal 2.6-6.0 [facility] Comment on above: Performed By: #### U JESI, BMP #### [facility] [address] [place] [address] Dr. Prabhu Lopez 36on 08-04-2022 36 Surgery was approved. I called pt to schedule. Pt did not answer LMOV to return call. [facility] Prep for Procedureon 023 Prep for Procedure [id number] Guillermina Lopez 1965 F Date Provider Department Center 08/04/2022 PATRICIA MAK MP ORTHO MPORTHO No family history on file [facility] Follow-Upon 06-25-2022 Follow-Up [id number] Guillermina Lopez 1965 F Date Provider Department Center 06/25/2022 MAX MUSTAFA MP ORTHO MPORTHO No family history on file Level of Service:48075 [place] OFFICE/OUTPATIENT ESTABLISHED LOW MDM 20-29 MIN Reason for Visit and Comments: Follow-up [[id number]] [facility] RAD - MISCon 05-27-2022 RAD - MISC [id number] #[id number] [facility] Ambulatory Visit Summaryon 0 05-26-2022 Ambulatory Visit Summary KASSANDRA LOPEZ :1965 Visit Date:05/26/2022 Ambulatory Visit Instructions Your Diagnosis Kidney stone Chronic cystitis Female stress incontinence Tests Performed Urnls Dip Stick Auto w/o Microscopy POC 41700 XR Abdomen 1 View -- Results Pending -- Please visit your patient portal for your results or contact your primary care physician. Your Care Team Attending Physician - JEFFREY AVELAR, Daniel Rios Primary Care Physician - Shai aLu MD This Is Your Medications List Contact prescribing physician if questions or concerns lansoprazole (Prevacid) multivitamin with minerals (Airborne Gummies) multivitamin with minerals (Multivitamin, Therapeutic w/ Minerals) Procedures Performed ESWL - Extracorporeal shockwave lithotripsy for renal calculus (03/05/2017), Procedure on back (2016), Carpal tunnel release (2015), Tonsillectomy (1989). Discharge Vitals Heart Rate (Peripheral) 70 Respiratory Rate 16 Blood Pressure 128/74 Height 161 cm Height 63 in Weight 91 kg Weight 200.2 lb BMI 35.11 What to do next Scheduled Follow-Up Appointments Thursday 8:00 AM EST With: JEFFREY AVELAR, Daniel Rios Where: [facility] [place] [facility] Patient Educationon 05-26-19 Patient Education Urology Dietary Guidelines to Help Prevent Kidney Stones Kidney stones are deposits of minerals and salts that form inside your kidneys. Your risk of developing kidney stones may be greater depending on your diet, your lifestyle, the medicines you take, and whether you have certain medical conditions. Most people can reduce their chances of developing kidney stones by following the instructions below. Depending on your overall health and the type of kidney stones you tend to develop, your dietitian may give you more specific instructions. What are tips for following this plan? Reading food labels ? Choose foods with no salt added or low-salt labels. Limit your sodium intake to less than 1500 mg per day. ? Choose foods with calcium for each meal and snack. Try to eat about 300 mg of calcium at each meal. Foods that contain 200?500 mg of calcium per serving include: ? 8 oz (237 ml) of milk, fortified nondairy milk, and fortified fruit juice. ? 8 oz (237 ml) of kefir, yogurt, and soy yogurt. ? 4 oz (118 ml) of tofu. ? 1 oz of cheese. ? 1 cup (300 g) of dried figs. ? 1 cup (91 g) of cooked broccoli. ? 1?3 oz can of sardines or mackerel. ? Most people need 1000 to 1500 mg of calcium each day. Talk to your dietitian about how much calcium is recommended for you. Shopping ? Buy plenty of fresh fruits and vegetables. Most people do not need to avoid fruits and vegetables, even if they contain nutrients that may contribute to kidney stones. ? When shopping for convenience foods, choose: ? Whole pieces of fruit. ? Premade salads with dressing on the side. ? Low-fat fruit and yogurt smoothies. ? Avoid buying frozen meals or prepared deli foods. ? Look for foods with live cultures, such as yogurt and kefir. Cooking ? Do not add salt to food when cooking. Place a salt shaker on the table and allow each person to add his or her own salt to taste. ? Use vegetable protein, such as beans, textured vegetable protein (TVP), or tofu instead of meat in pasta, casseroles, and soups. Meal planning ? Eat less salt, if told by your dietitian. To do this: ? Avoid eating processed or premade food. ? Avoid eating fast food. ? Eat less animal protein, including cheese, meat, poultry, or fish, if told by your dietitian. To do this: ? Limit the number of times you have meat, poultry, fish, or cheese each week. Eat a diet free of meat at least 2 days a week. ? Eat only one serving each day of meat, poultry, fish, or seafood. ? When you prepare animal protein, cut pieces into small portion sizes. For most meat and fish, one serving is about the size of one deck of cards. ? Eat at least 5 servings of fresh fruits and vegetables each day. To do this: ? Keep fruits and vegetables on hand for snacks. ? Eat 1 piece of fruit or a handful of berries with breakfast. ? Have a salad and fruit at lunch. ? Have two kinds of vegetables at dinner. ? Limit foods that are high in a substance called oxalate. These include: ? Spinach. ? Rhubarb. ? Beets. ? Potato chips and turkmen fries. ? Nuts. ? If you regularly take a diuretic medicine, make sure to eat at least 1?2 fruits or vegetables high in potassium each day. These include: ? Avocado. ? Banana. ? [place], prune, carrot, or tomato juice. ? Baked potato. ? Cabbage. ? Beans and split peas. General instructions ? Drink enough fluid to keep your urine clear or pale yellow. This is the most important thing you can do. ? Talk to your health care provider and dietitian about taking daily supplements. Depending on your health and the cause of your kidney stones, you may be advised: ? Not to take supplements with vitamin C. ? To take a calcium supplement. ? To take a daily probiotic supplement. ? To take other supplements such as magnesium, fish oil, or vitamin B6. ? Take all medicines and supplements as told by your health care provider. ? Limit alcohol intake to no more than 1 drink a day for non women and 2 drinks a day for men. One drink equals 12 oz of beer, 5 oz of wine, or 1? oz of hard liquor. ? Lose weight if told by your health care provider. Work with your dietitian to find strategies and an eating plan that works best for you. What foods are not recommended? Limit your intake of the following foods, or as told by your dietitian. Talk to your dietitian about specific foods you should avoid based on the type of kidney stones and your overall health. Grains Breads. Bagels. Rolls. Baked goods. Salted crackers. Cereal. Pasta. Vegetables Spinach. Rhubarb. Beets. Canned vegetables. Pickles. Olives. Meats and other protein foods Nuts. Nut butters. Large portions of meat, poultry, or fish. Salted or cured meats. Deli meats. Hot dogs. Sausages. Dairy Cheese. Beverages Regular soft drinks. Regular vegetable juice. Seasonings and other foods Seasoning blends with salt. Salad dr (more content not included)... Normal [facility] Urology Office/Clinic Noteon 05-26-2022 Urology Office/Clinic Note Chief Complaint kidney stone HPI Staff 1 year f/u with KUB. Previous dx of kidney stone, chronic cystitis and stress incontinence. Dysuria: no Incomplete bladder emptying: no Hematuria: no Frequency: no Urgency: no Nocturia: 1x Stream: no straining Leaking: no Post void dripping: no Wearing pads/ Depends: no Urge incontinence: no Stress incontinence: with sneezing Incontinence without Sensory Awareness: no Abdominal pain: no Flank pain: no Sexual complaints: no History of Present Illness Tests reviewed: reviewed UA, KUB. I have reviewed the previous health record information and history for this patient from Dr. Salmon. I have reviewed and verified the staff HPI to be accurate for this encounter. There have been no associated fever, chills, flank pain, or blood in the urine. Denies any urinary infections since last encounter. Review of Systems PHQ Score Initial Depression Screen Score: 0 ROS - Provider Constitutional: denies weight loss, denies hot flashes. Eyes: denies eye problems. Gastrointestinal: denies nausea, denies vomiting. Cardiovascular: denies chest pain or angina. Integumentary: no dryness Musculoskeletal: denies musculoskeletal symptoms. ENMT: denies otolaryngeal symptoms. Respiratory: no shortness of breath. Heme/Lymph: denies easy bleeding tendency, denies easy bruising tendency. Psychiatric: no confusion, no anxiety. Genitourinary: See HPI. Physical Exam Vitals & Measurements HR: 70(Peripheral) RR: 16 BP: 128/74 HT: 63 in HT: 161 cm WT: 91 kg WT: 200.2 lb BMI: 35.11 General Appearance: alert , no acute distress, well nourished, well developed female. Genitourinary: bladder nonpalpable, no flank pain. Assessment/Plan 1. Kidney stone (N20.0: Calculus of kidney) KUB done 04/25/21 does not appreciate any urinary tract calculi. KUB done 05/22/22 at [facility] shows right nephrolithiasis versus overlying bowel content artifact. Numerous pelvic calcifications favoring phleboliths. A distal ureteral stone cannot be completely excluded. Denies any stone signs /sxs since prior encounter. Discussed findings from KUB, possible stone but bowel content is prohibiting clear view. Pt has had 2 or 3 stones in her life. Discussed metabolic workup including 24 hour urine and blood work for stone prevention. Follow up in 1 year with KUB and met workup (will call pt with results) or sooner if needed. Pt understands and agrees with plan. -high fluid intake 2. Chronic cystitis (N30.20: Other chronic cystitis without hematuria) UA today negative for blood and infection. Not voicing any infections since last encounter. -cont timed voids q2-3hrs 3. Female stress incontinence (N39.3: Stress incontinence (female) (male)) With sneezing. Not wearing pads or depends. Follow-up With When Contact Information JEFFREY AVELAR, Daniel Rios, URL [facility] [address], [place] [address]- Additional Instructions: 1 year with KUB, met workup Patient Education Dietary Guidelines to Help Prevent Kidney Stones I, Jayshree Santiago, personally scribed for Dr. Salmon on 05/26/2022 09:29:11. . Documentation recorded by the scribe, Jayshree Santiago, accurately reflects the services(s) I performed and decisions made by me. Authenticated by Dr. Salmon on 05/26/2022 09:31:56. Problem List/Past Medical History Ongoing Abdominal pain Chronic cystitis Female stress incontinence Infrequent urination Kidney stone Microscopic hematuria Nocturia UTI (urinary tract infection) Historical No qualifying data Procedure/Surgical History ESWL - Extracorporeal shockwave lithotripsy for renal calculus (03/05/2017), Procedure on back (2016), Carpal tunnel release (2015), Tonsillectomy (1989). Medications Airborne Gummies, Chewed, Daily Multivitamin, Therapeutic w/ Minerals, 1 tab(s), Oral, Daily Prevacid, Oral, Daily Allergies Levaquin (..) PHENobarbital (..) sulfa drugs (RASH) Social History Tobacco Never (less than 100 in lifetime) Tobacco Use:., 05/13/2021 Never (less than 100 in lifetime) Tobacco Use:., 04/16/2020 Immunizations Vaccine Date Status SARS-CoV-2 (COVID-19) Ad26 vaccine 08/08/2020 Recorded SARS-CoV-2 (COVID-19) Ad26 vaccine 07/18/2020 Recorded Lab Results Ambulatory Point of Care Results Bilirubin Urine Dipstick: Negative (05/26/22 08:54:00) Blood Urine Dipstick: Negative (05/26/22 08:54:00) Glucose Urine Dipstick: Negative (05/26/22 08:54:00) Ketones Urine Dipstick: Negative (05/26/22 08:54:00) Leukocytes Urine Dipstick: Negative (05/26/22 08:54:00) Nitrite Urine Dipstick: Negative (05/26/22 08:54:00) Protein Urine Dipstick: Negative (05/26/22 08:54:00) Specific [place] Urine Dipstick: 1.025 (05/26/22 08:54:00) Urine Appearance Urine Dipstick: Clear (05/26/22 08:54:00) Urine Color Urine Dipstick: Yellow (05/26/22 08:54:00) pH Urine Dipstick: 5.5 (05/26/22 08:54:00 (more content not included)... Normal [facility] Comment on above: Result Comment: Elec tronically Signed By: JEFFREY AVELAR, Daniel R\.br\Date and Time Signed: 05/26/22 09:32 EST\.br\Electronically Co-Signed By: Jayshree Santiago P\.br\Date and Time Co-Signed: 05/26/22 09:29 EST XR KUB 1 VIEWon 05-23-2022 XR KUB 1 VIEW EXAMINATION: XR KUB 1 VIEW HISTORY: Kidney stone COMPARISON: XR KUB 04/25/2021 FINDINGS: KIDNEY/URETER - RIGHT: Several tiny calcifications versus bowel content projected over right kidney. KIDNEY/URETER - LEFT: No visible renal or ureteral calcifications. PELVIS: Multiple pelvic calcifications suspected represent phleboliths. BOWEL: No abnormal dilation or deviation. BONES: No acute abnormality. OTHER: Negative. No abnormal gaseous collections. IMPRESSION: 1. Right nephrolithiasis versus overlying bowel content artifact. 2. Numerous pelvic calcifications favoring phleboliths. A distal ureteral stone cannot be completely excluded. Electronically authenticated by: WIL KAYE Date: 2022-05-23 09:40 Normal [facility] Covid-19 PCR ([facility])on 11-04 SARS-CoV-2 (COVID-19) RNA TANGELA+probe Ql (Unsp spec) Not detected Normal NOT DETECTED [facility] Comment on above: Result Comment: When diagnostic testing is negative, the possibility of a false negative should be considered in the context of a patient's recent exposures and the presence of clinical signs and symptoms consistent with SARS-CoV-2. This test is not yet approved or cleared by the [place] FDA. When there are no FDA-approved or cleared tests available, and other criteria are met, FDA can make tests available under an emergency access mechanism called an Emergency Use Authorization (EUA). The EUA for this test is supported by the [place] [employer] Tender of Health and Human Service's declaration that circumstances exist to justify the emergency use of in vitro diagnostics for the detection and/or diagnosis of the virus that causes COVID-19. This EUA will remain in effect for the duration of the COVID-19 declaration justifying emergency of IVDs, unless it is terminated or revoked by the FDA (after which the test may no longer be used). Performed By: #### [facility] #### [facility] [address] [place] [address] Dr. Prabhu Lopez Covid-19 PCR ([facility])on SARS-CoV-2 (COVID-19) RNA TANGELA+probe Ql (Unsp spec) Not detected Normal NOT DETECTED [facility] Comment on above: Result Comment: This test is not yet approved or cleared by the [place] FDA. When there are no FDA-approved or cleared tests available, and other criteria are met, FDA can make tests available under an emergency access mechanism called an Emergency Use Authorization (EUA). The EUA for this test is supported by the [place] Ste[employer] Tender of Health and Human Service's (HHS's) declaration that circumstances exist to justify the emergency use of in vitro diagnostics for the detection and/or diagnosis of the virus that causes COVID-19. This EUA will remain in effect (meaning this test can be used) for the duration of the COVID-19 declaration justifying emergency of IVDs, unless it is terminated or revoked by FDA (after which the test may no longer be used). When diagnostic testing is negative, the possibility of a false negative should be considered in the context of a patient's recent exposures and the presence of clinical signs and symptoms consistent with SARS-CoV-2. Performed By: #### C VDTB #### [facility] [address] [place] [address] Dr. Prabhu Lopze B-Type Natriuretic Peptideon 02-12-2021 Natriuretic peptide B (Bld) [Mass/Vol] 36.0 pg/mL Normal 5-100 [facility] Comment on above: Result Comment: PERF ORMED BY: [place] [address] PATHOLOGIST [employer]ENER[employer] BUILDER NICANOR BALTAZAR M.D. Performed By: #### C BC, PTT, CKMB, BMP, CK, BNP, PT, HS TROP #### [address] Basic Metabolic Panelon Calcium [Mass/Vol] 8.9 mg/dL Normal 8.2-10.2 [facility] Comment on above: Performed By: #### C BC, PTT, CKMB, BMP, CK, BNP, PT, HS TROP #### [address] Chloride [Moles/Vol] 104 mmol/L Normal 95-114 [facility] Comment on above: Performed By: #### C BC, PTT, CKMB, BMP, CK, BNP, PT, HS TROP #### [address] CO2 [Moles/Vol] 24.0 mmol/L Normal 22.0-30.0 [facility] Comment on above: Performed By: #### C BC, PTT, CKMB, BMP, CK, BNP, PT, HS TROP #### [address] Creatinine [Mass/Vol] 1.06 mg/dL High 0.44-1.03 [facility] Comment on above: Performed By: #### C BC, PTT, CKMB, BMP, CK, BNP, PT, HS TROP #### [address] Creatinine Clr Calc Pharmacy 64.12 [facility] Comment on above: Result Comment: PERF ORMED BY: [place] [address] PATHOLOGIST [employer]ENER[employer] BUILDER NICANOR BALTAZAR M.D. Performed By: #### C BC, PTT, CKMB, BMP, CK, BNP, PT, HS TROP #### [address] Estimated GFR ( Najma > 60 [facility] Comment on above: Result Comment: GFR estimated reference range: According to KDOQI guidelines, <60 ml/min/1.73m2 is sufficient to diagnose a patient with chronic kidney disease. Performed By: #### C BC, PTT, CKMB, BMP, CK, BNP, PT, HS TROP #### [address] Estimated GFR (Non- Am 54 [facility] Comment on above: Performed By: #### C BC, PTT, CKMB, BMP, CK, BNP, PT, HS TROP #### [address] Glucose [Mass/Vol] 106 mg/dL High 70-100 [facility] Comment on above: Result Comment: [facility] Glucose Reference Range is dependent on time and content of last meal. Glucose of more than 200 mg/dL in a nonstressed, ambulatory subject supports the diagnosis of Diabetes Mellitus. ADA recommended reference range Performed By: #### C BC, PTT, CKMB, BMP, CK, BNP, PT, HS TROP #### [address] Potassium [Moles/Vol] 3.3 mmol/L Low 3.5-5.1 [facility] Comment on above: Performed By: #### C BC, PTT, CKMB, BMP, CK, BNP, PT, HS TROP #### [address] Sodium [Moles/Vol] 138 mmol/L Normal 136-146 [facility] Comment on above: Performed By: #### C BC, PTT, CKMB, BMP, CK, BNP, PT, HS TROP #### [address] Urea nitrogen [Mass/Vol] 11 mg/dL Normal 9-23 [facility] Comment on above: Performed By: #### C BC, PTT, CKMB, BMP, CK, BNP, PT, HS TROP #### [address] Complete Blood Count Auto Di ffon 02-12-2021 Basophils (Bld) [#/Vol] 0.1 10*3/uL Normal 0.0-0.2 [facility] Comment on above: Result Comment: PERF ORMED BY: [place] [address] PATHOLOGIST [employer]ILDER NICANOR BALTAZAR M.D. Performed By: #### C BC, PTT, CKMB, BMP, CK, BNP, PT, HS TROP #### [place] [address] [place] Basophils/100 WBC (Bld) 1.2 % Normal . [facility] Comment on above: Performed By: #### C BC, PTT, CKMB, BMP, CK, BNP, PT, HS TROP #### [address] Eosinophils (Bld) [#/Vol] 0.2 10*3/uL Normal 0.0-0.45 [facility] Comment on above: Performed By: #### C BC, PTT, CKMB, BMP, CK, BNP, PT, HS TROP #### [address] Eosinophils/100 WBC (Bld) 3.2 % Normal . [facility] Comment on above: Performed By: #### C BC, PTT, CKMB, BMP, CK, BNP, PT, HS TROP #### [address] Erythrocyte distribution width (RBC) [Ratio] 13.5 % Normal 11.9-15.3 [facility] Comment on above: Performed By: #### C BC, PTT, CKMB, BMP, CK, BNP, PT, HS TROP #### [address] Hematocrit (Bld) [Volume fraction] 36.8 % Normal 34.0-46.4 [facility] Comment on above: Performed By: #### C BC, PTT, CKMB, BMP, CK, BNP, PT, HS TROP #### [address] Hemoglobin (Bld) [Mass/Vol] 12.2 g/dL Normal 11.8-15.4 [facility] Comment on above: Performed By: #### C BC, PTT, CKMB, BMP, CK, BNP, PT, HS TROP #### [address] Lymphocytes (Bld) [#/Vol] 2.3 10*3/uL Normal 1.00-4.8 [facility] Comment on above: Performed By: #### C BC, PTT, CKMB, BMP, CK, BNP, PT, HS TROP #### [address] [place] [address] [place] Lymphocytes/100 WBC (Bld) 37.1 % Normal . [facility] Comment on above: Performed By: #### C BC, PTT, CKMB, BMP, CK, BNP, PT, HS TROP #### [address] MCH (RBC) [Entitic mass] 29.5 pg Normal 24.7-34.3 [facility] Comment on above: Performed By: #### C BC, PTT, CKMB, BMP, CK, BNP, PT, HS TROP #### [address] MCV (RBC) [Entitic vol] 89.0 fL Normal 80-100 [facility] Comment on above: Performed By: #### C BC, PTT, CKMB, BMP, CK, BNP, PT, HS TROP #### [address] Mean Corpuscular HGB Conc 33.2 g/dL Normal 32.0-35.0 [facility] Comment on above: Performed By: #### C BC, PTT, CKMB, BMP, CK, BNP, PT, HS TROP #### [address] Monocytes (Bld) [#/Vol] 0.5 10*3/uL Normal 0.0-0.8 [facility] Comment on above: Performed By: #### C BC, PTT, CKMB, BMP, CK, BNP, PT, HS TROP #### [address] Monocytes/100 WBC (Bld) 8.7 % Normal . [facility] Comment on above: Performed By: #### C BC, PTT, CKMB, BMP, CK, BNP, PT, HS TROP #### [address] Neutrophils (Bld) [#/Vol] 3.1 10*3/uL Normal 1.8-7.7 [facility] Comment on above: Performed By: #### C BC, PTT, CKMB, BMP, CK, BNP, PT, HS TROP #### [address] Neutrophils/100 WBC (Bld) 49.8 % Normal . [facility] Comment on above: Performed By: #### C BC, PTT, CKMB, BMP, CK, BNP, PT, HS TROP #### [address] Nucleated RBC/100 WBC (Bld) [Ratio] 0.0 % Normal 0-0.5 [facility] Comment on above: Performed By: #### C BC, PTT, CKMB, BMP, CK, BNP, PT, HS TROP #### [address] Platelet mean volume (Bld) [Entitic vol] 9.7 fL Normal 6.3-10.7 [facility] Comment on above: Performed By: #### C BC, PTT, CKMB, BMP, CK, BNP, PT, HS TROP #### [address] Platelets (Bld) [#/Vol] 219 10*3/uL Normal 150-450 [facility] Comment on above: Performed By: #### C BC, PTT, CKMB, BMP, CK, BNP, PT, HS TROP #### [address] RBC (Bld) [#/Vol] 4.13 10*6/uL Normal 3.60-5.00 [facility] Comment on above: Performed By: #### C BC, PTT, CKMB, BMP, CK, BNP, PT, HS TROP #### [address] WBC (Bld) [#/Vol] 6.3 10*3/uL Normal 4.5-11.0 [facility] Comment on above: Performed By: #### C BC, PTT, CKMB, BMP, CK, BNP, PT, HS TROP #### [address] Creatine Kinaseon 11-09-2021 CK [Catalytic activity/Vol] 178 U/L Normal 22-269 [facility] Comment on above: Performed By: #### C BC, PTT, CKMB, BMP, CK, BNP, PT, HS TROP #### [facility] [address] Creatinine Kinase MBon 02-12 CK.MB [Mass/Vol] 2.5 ng/mL Normal 0.6-6.3 [facility] Comment on above: Performed By: #### C BC, PTT, CKMB, BMP, CK, BNP, PT, HS TROP #### [facility] [address] CKMB Relative Index 1.4 % Normal 0.00-2.50 [facility] Comment on above: Performed By: #### C BC, PTT, CKMB, BMP, CK, BNP, PT, HS TROP #### [address] Partial Thromboplastin Timeo n 02-12-2021 aPTT Coag (Bld) [Time] 29.3 s Normal 25.1-36.5 [facility] Comment on above: Result Comment: PERF ORMED BY: [place] [address] PATHOLOGIST [employer]ILDER NICANOR BALTAZAR M.D. Performed By: #### C BC, PTT, CKMB, BMP, CK, BNP, PT, HS TROP #### [address] Prothrombin Time INRon 02-12 INR Coag (PPP) [Relative time] 1.0 {INR} Normal [facility] Comment on above: Result Comment: INR Therapeutic Range A) Pre- and Peroperative OAT started two weeks before surgery. NOT HIP SURGERY: 1.5 - 2.5 HIP SURGERY: 2 - 3 B) Primary and secondary prevention of venous THROMBOSIS: 2 - 3 C) Active venous thrombosis, pulmonary embolism and prevention of recurrent venous thrombosis: 2 - 3 D) Prevention of arterial thromboembolism including patients with mechanical heart valves: 3 - 4.5 Performed By: #### C BC, PTT, CKMB, BMP, CK, BNP, PT, HS TROP #### [address] PT Coag (PPP) [Time] 11.5 s Normal 9.0-12.9 [facility] Comment on above: Performed By: #### C BC, PTT, CKMB, BMP, CK, BNP, PT, HS TROP #### [address] Troponin I High Sensitivityo n 02-12-2021 Troponin I High Sensitivity 5 pg/mL Normal 0-15 [facility] Comment on above: Result Comment: PERF ORMED BY: [place] [address] PATHOLOGIST SCENER[employer] BUILDER NICANOR BALTAZAR M.D. Performed By: #### C BC, PTT, CKMB, BMP, CK, BNP, PT, HS TROP #### [address] XR chest 2V*on 02-12-2021 XR chest 2V* [facility] [place] [address] [place] [address] XRay Report Signed Patient: Kassandra Lopez MR#: [id number] : 1965 Acct:[id number] Age/Sex: 55 / F ADM Date: 02/11/21 Loc: ER Room: Type: [facility] ER Attending Dr: Ordering Provider: Stefan Carolina DO Date of Service: 02/11/21 XR/XR chest 2V*: Chest Pain Copies to: Stefan Carolina DO Plain film chesttwo-view HISTORY:Sharp left-sided chest pain starting today. COMPARISON:None FINDINGS: The cardiac, mediastinal and hilar silhouettes are within normal limits. No acute lung process, pleural effusion or pneumothorax identified. Bony structures are intact. Minimal basilar linear atelectasis present. XR/XR chest 2V* IMPRESSION: No acute process. Impression dictated by: Reid Graves M.D.02/12/2021 9:18 AM Dictation Location: [place] [address] Transcribed By: ZAINAB 02/12/21917 Dictated By: Reid Graves DO 02/12/21914 Signed By: 02/12/21917 [facility] ECG 12 lead ECGon 02-11-2021 ECG 12 lead ECG [facility] [place] [address] [place] [address] Electrocardiograph Report Signed Patient: Kassandra Lopez MR#: [id number] : 1965 Acct:[id number] Age/Sex: 55 / F ADM Date: 02/11/21 Loc: ER Room: Type: [facility] ER Attending Dr: Ordering Provider: Stefan Carolina DO Date of Service: 02/11/2111/24/2110 ECG/ECG 12 lead ECG: Chest Pain Copies to: Test Reason : Blood Pressure : 139/083 mmHG Vent. Rate : 066 BPM Atrial Rate : 066 BPM P-R Int : 190 ms QRS Dur : 086 ms QT Int : 430 ms P-R-T Axes : 069 070 061 degrees QTc Int : 450 ms Normal sinus rhythm Normal ECG No previous ECGs available Confirmed by Stefan Carolina DO ([id number]) on 02/11/2021 11:41:46 PM Referred By: Electronically Signed By:Stefan Carolina DO Transcribed By: MUS Signed By Stefan Carolina DO 02/11 2341 [facility] Vital Signs Date Time Vital Sign Value Performing Clinician Faci steven 05-26-2022 08:49-0500 Blood Pressure Location Daniel SALMON [facility] 05-26-2022 08:49-0500 Diastolic blood pressure 74 mm[Hg] Daniel SALMON [facility] 05-26-2022 08:49-0500 Heart rate 70 /min Daniel SALMON [facility] 05-26-2022 08:49-0500 Respiratory rate 16 /min Daniel SALMON [facility] 05-26-2022 08:49-0500 Systolic blood pressure 128 mm[Hg] Daniel SALMON [facility] Encounters Encounter Date Encounter Type Care Provider Facility Start: 05-29-2023 ambulatory Daniel SALMON Facili ty:[facility] Start: 02-10-2023 ambulatory [facility] Start: 11-26-2022 ambulatory [facility] Start: 10-15-2022 End: 10-15-2022 ambulatory [facility] Start: 10-01-2022 End: 10-01-2022 ambulatory [facility] Start: 08-15-2022 Encounter for genera l adult medical examination without abnormal findings DR SHAI LAU . [facility] Start: 08-14-2022 End: 08-15-[address] SHAI LAU . Facility:[facility] Start: 08-14-2022 End: 08-15-2022 Encounter for general adult medical examination without abnormal findings DR SHAI LAU . Facility:[facility] Start: 08-12-2022 End: 08-13-[address] DANIEL SALMON . Facility:[facility] Start: 06-25-2022 ambulatory [facility] Start: 05-26-2022 End: 05-27-2022 ambulatory Daniel SALMON Facility:[facility] Start: 05-26-2022 End: 05-26-2022 Patient encounter procedure Daniel SALMON [facility] Start: 05-22-2022 End: 05-23-[address] DANIEL SALMON . Facility:[facility] Start: 11-15-2021 End: 11-15-[address] SHAI LAU . Facility:[facility] Start: 11-12-2021 End: 11-12-[address] SHAI LAU . Facility:[facility] Start: 07-02-2021 End: 07-02-2021 Lab Drop off EMERITA PRINCE [facility] Start: 07-02-2021 End: 07-02-2021 Patient encounter procedure Toni Carrera Jr. [facility] Procedures Date Procedure Procedure Detail Performing Clinician Start: 02-10-2023 Follow-up visit Follow-up MAX KOWALSKI Start: 03-05-2017 Extracorporeal shock wave lithotripsy of calculus of kidney Toni Carrera Jr. Start: 04-06-2016 Procedure on back Akil malick Carrera Jr. Start: 04-06-2015 Decompression of med barron nerve Toni Carrera Jr. Start: 04-06-1989 Tonsillectomy Toni de la cruz Jr. Immunizations Immunization Date Immunization Notes Care Provider Fa cili 08-08-2020 SARS-CoV-2 (COVID-19 ) Ad26 vaccine, recombinant Toni Carrera Jr. [facility] 07-18-2020 SARS-CoV-2 (COVID-19 ) Ad26 vaccine, recombinant Toni Carrera Jr. [facility] Payers Date Payer Category Payer Unknown [id number] 2019 Unknown [id number] 1965 Unknown [id number] 2.16.8 [id number] 1965 Unknown [id number] 2.16.8 [id number] 1965 Unknown [id number] 2.16.84 [id number] 1965 Unknown [id number] 2.16.84 [id number] 1965 Unknown [id number] 2.16.84 [id number] 1965 Unknown [id number] 2.16.84 [id number] 1965 Unknown [id number] 2.16.84 [id number] 1965 Unknown [id number] 2.16.84 [id number] 1959 Unknown [id number] Social History Date Type Detail Facility Start: 05-13-2021 Tobacco smoking status Never s moked tobacco (finding) [facility] Sex Assigned At Female [facility] Functional Status Date Assessment Result Facility 05-26-2022 Functional Status N/A [facility] Clinical Notes 05-26-2022 to 02-10-2023 Note Date & Type Note Facility 02-10-2023 Note Orthopedic Surgery Subjective 10/01/2022 Carpal Tunnel Release - Left 02/10/23 Pt presenting for follow-up after left carpal tunnel release on 10/01/22. The patient presents as a workmen's compensation injury. Since her last visit, she reports worsening of median and ulnar nerve symptoms previously documented. These include pain and paresthesias in the median and ulnar nerve distributions of the left hand. The ulnar nerve injury occurred at the time of patient fall, she fell onto her left wrist, with contact through the medial side of the arm proximally to the elbow. Patient also endorses decreased strength and pain with action of the left hand with activities like holding a can or opening a jar. She has been in PT with little reported benefit. She states she has extensive pain on the day after therapy. Patient also reports pain at CMC joint of left thumb. 11/26/22 Pt presenting for second follow up of L open CTR (DOS 10/01/22). The patient presents as a Workmen's Compensation injury. She reports she has had minimal improvement in her numbness extending to the thumb and index finger, but she has had some improvement at her long finger. She reports she is doing scar massage. She reports she has been having some numbness and tingling of her fourth and fifth fingers which is worse at nighttime. She is about to start physical therapy of the left hand and has not yet returned to work. Patient History Past Surgical History: Procedure Laterality Date BACK SURGERY CARPAL TUNNEL RELEASE Right HAND SURGERY Left LITHOTRIPSY TONSILLECTOMY Past Medical History: Diagnosis Date GERD (gastroesophageal reflux disease) Kidney stone Migraines Objective Left Hand: Gtuwwscsrt-bhsj-[id number] scar from carpal tunnel incision. Thumb: normal A1 winnie and AROM, Index finger: normal A1 winnie and AROM, Long finger: normal A1 winnie and AROM, Ring finger: normal A1 winnie and AROM, and Small finger: normal A1 winnie and AROM Strength: senior commissions analyst 4+/5, thumb 4+/5, interossei 5/5 Sensation: intact over radial and ulnar nerve distributions. Tinel (+) at carpal tunnel Carpal compression test (+) Tinel (+) at cubital tunnel. Positive left CMC grind test Cardiovascular: Well-perfused digits Assessment/Plan Kassandra Lopez is a 57 y.o. year old female s/p Carpal Tunnel Release - Left. (10/01/2022). -Patient initial injury notable for contusion of the left medial elbow. Her exam at this time is concerning for ulnar nerve neuropathy at the cubital tunnel due to her numbness and sensitivity at her medial elbow. Diagnosis of ulnar neuropathy at cubital tunnel ICD 10 - G 56.20 - C9 for CSI injection of the left carpal tunnel d/t continued pain and paresthesias - C9 for inclusion of cubital tunnel syndrome to her about diagnoses. Raymond Nickerson MS-3 As the teaching physician, I have personally performed or re-performed the history of present illness, physical exam and medical decision-making activities of the encounter and verified the medical student's documentation. I made pertinent changes as necessary to ensure accurate documentation. Additional Comments: She is currently not working. If available she can certainly do work the required no repetitive grasping or lifting with the left arm. Hopefully we can get approval to do the corticosteroid injection and see if that helps her and see her back at that time. [facility] 11-26-2022 Note Attestation signed by Max Kowalski MD at 11/26/2022 8:28 PM I personally saw and examined the patient on the same date of service as resident/fellow . I discussed the findings and therapeutic plan with the resident/fellow . I agree with the documentation, except for any edits/updates below. Teaching Physician's Revisions: None Orthopedic Surgery Subjective 10/01/2022 Carpal Tunnel Release - Left 11/26/22 Pt presenting for second follow up of L open CTR (DOS 10/01/22). The patient presents as a Workmen's Compensation injury. She reports she has had minimal improvement in her numbness extending to the thumb and index finger, but she has had some improvement at her long finger. She reports she is doing scar massage. She reports she has been having some numbness and tingling of her fourth and fifth fingers which is worse at nighttime. She is about to start physical therapy of the left hand and has not yet returned to work. Patient History Past Surgical History: Procedure Laterality Date BACK SURGERY CARPAL TUNNEL RELEASE Right HAND SURGERY Left LITHOTRIPSY TONSILLECTOMY Past Medical History: Diagnosis Date GERD (gastroesophageal reflux disease) Kidney stone Migraines Objective Left Hand: Wbrnrjmvnk-mwox-sfvuol scar from carpal tunnel incision. Thumb: normal A1 winnie and AROM, Index finger: normal A1 winnie and AROM, Long finger: normal A1 winnie and AROM, Ring finger: normal A1 winnie and AROM, and Small finger: normal A1 winnie and AROM Strength: senior commissions analyst 5/5, thumb 5/5, interossei 5/5 Sensation: intact over radial nerve distributions. Diminished sensation to light touch in ulnar nerve median distributions. Tinel (+) at carpal tunnel Carpal compression test (+) Tinel (+) at cubital tunnel Cardiovascular: Well-perfused digits Assessment/Plan Kassandra Lopez is a 57 y.o. year old female s/p Carpal Tunnel Release - Left. (10/01/2022). -Patient initial injury notable for contusion of the left medial elbow. Her exam at this time is concerning for ulnar nerve neuropathy at the cubital tunnel due to her numbness and sensitivity at her medial elbow. For now, we recommended keeping elbow extended at nighttime and avoiding pushing on her left elbow to avoid aggravating her ulnar nerve. Diagnosis of ulnar neuropathy at cubital tunnel ICD 10 - G 56.20 -We will continue to watch for improvement in her median nerve sensation following some work with physical therapy. -RTC in 6 weeks GIGI SHERIFF MD Orthopedic Surgery, PGY-2 Ortho Pager [phone] 11/26/22 3:14 PM [facility] 10-15-2022 Note Attestation signed by Max Kowalski MD at 10/15/2022 4:55 PM I personally saw and examined the patient on the same date of service as resident/fellow . I discussed the findings and therapeutic plan with the resident/fellow . I agree with the documentation, except for any edits/updates below. Teaching Physician's Revisions: Agree with above Orthopedic Surgery Subjective 10/01/2022 Carpal Tunnel Release - Left 10/15/22 Pt presenting for first post op follow up of L open CTR (DOS 10/01/22). She reports the numbness has resolved in her L LF, and it has been improving in her L IF and thumb. She denies wound erythema or drainage Patient History Past Surgical History: Procedure Laterality Date BACK SURGERY CARPAL TUNNEL RELEASE Right HAND SURGERY Left LITHOTRIPSY TONSILLECTOMY Past Medical History: Diagnosis Date GERD (gastroesophageal reflux disease) Kidney stone Migraines Objective Exam: - Incision clean, dry, and intact. No drainage or erythema - Reasonable post-surgical ROM, swelling, and tenderness - Sensation grossly intact distally - Brisk capillary refill Assessment/Plan Kassandra Lopez is a 57 y.o. year old female s/p Carpal Tunnel Release - Left (10/01/2022) -Scar massage and lotion -C9 for Carpal tunnel syndrome of L hand s/p CTR -RTC in 6 weeks or as needed GIGI SHERIFF MD Orthopedic Surgery, PGY-2 Ortho Pager [phone] 10/15/22 1:20 PM [facility] 10-01-2022 Note Patient: Guillermina curry Procedure Summary Date: 10/01/22 Room / Location: [facility] OR [address] [place] [address] OR Anesthesia Start: 833 Anesthesia Stop: 899 Procedure: CARPAL TUNNEL RELEASE (Left: Hand) Diagnosis: Carpal tunnel syndrome on left (Carpal tunnel syndrome on left [G56.02]) Surgeons: Max Kowalski MD Responsible Provider: Lynne Enriquez MD Anesthesia Type: MAC ASA Status: 2 Anesthesia Type: MAC Vitals Value Taken Time BP 134/68 10/01/22 0930 Temp 36.1 ???C (97 ???F) 10/01/22 0900 Pulse 43 10/01/22 0930 Resp 16 10/01/22 0930 SpO2 97 % 10/01/22 0930 Anesthesia Post Evaluation Patient location during evaluation: PACU Patient participation: complete - patient participated Level of consciousness: awake and alert Pain score: 0 Pain management: adequate Airway patency: patent Cardiovascular status: acceptable Respiratory status: acceptable Hydration status: acceptable Patient is hemodynamically stable and is able to be discharged from PACU per anesthesia protocol. No notable events documented. [facility] 10-01-2022 Note Patient: Guillermina curry Procedure Information Date/Time: 10/01/22829 Procedure: CARPAL TUNNEL RELEASE (Left: Hand) Location: [facility] OR [address] [place] [address] OR Surgeons: Max Kowalski MD Relevant Problems No relevant active problems Past Medical History: Diagnosis Date ??? GERD (gastroesophageal reflux disease) ??? Kidney stone ??? Migraines Past Surgical History: Procedure Laterality Date ??? BACK SURGERY ??? CARPAL TUNNEL RELEASE Right ??? HAND SURGERY Left ??? LITHOTRIPSY ??? TONSILLECTOMY No results found for this or any previous visit (from the past 4464 hour(s)). No echocardiogram results found for the past 12 months Clinical information reviewed: Tobacco Allergies Meds Med Hx Surg Hx Fam Hx Soc Hx Physical Exam Airway Mallampati: II TM distance: >3 FB Neck ROM: full Cardiovascular Rhythm: regular Rate: normal Dental - normal exam Pulmonary Breath sounds clear to auscultation Abdominal - normal exam Anesthesia Plan ASA 2 MAC The patient is not a current smoker. intravenous induction Postoperative administration of opioids is intended. Anesthetic plan and risks discussed with patient. Plan discussed with attending. Additional Equipment Requests [facility] 06-25-2022 Note Orthopedic Surgery Subjective Chief complaint: Left carpal tunnel Guillermina Lopez is a 57 y.o. year old female presenting for follow-up of left [facility] carpal tunnel. She has been following here since September 2019 for carpal tunnel related to the repetitive tasks of her occupation. Patient was seen over a year ago and states that since then her symptoms have progressively gotten worse to the point where she is starting to drop objects. She has been adherent to the use of a nighttime brace as well as intermittent use of NSAID medication but still does not have relief of symptoms. She endorses numbness and tingling of her left thumb, index and long fingers compared to the right. She also reports that her symptoms do wake her up at night even with use of the brace Patient History No past surgical history on file. No past medical history on file. Objective General: There is no height or weight on file to calculate BMI. No acute distress, comfortable Respiratory: Unlabored breathing with normal rate, no cough Cardiovascular: Warm well perfused extremities Psych: Appropriate mood behavior Left Hand: Inspection- no ecchymosis, no erythema, no deformity No significant TTP Thumb: normal A1 winnie and AROM, Index finger: normal A1 winnie and AROM, Long finger: normal A1 winnie and AROM, Ring finger: normal A1 winnie and AROM, and Small finger: normal A1 winnie and AROM Strength: senior commissions analyst 4/5, thumb 4/5, interossei 5/5. Sensation: intact ulnar, and radial nerve distributions.Sensation is diminished in the median nerve distribution Tinel (+) at carpal tunnel Carpal compression test (+) Megan's test (-) Cardiovascular: Well-perfused digits Imaging: Assessment/Plan Guillermina Lopez is a 57 y.o. year old female with a longstanding history of left carpal tunnel related to her workplace requirements. PLAN: At this time we will submit a C9 for left carpal tunnel release. We do not believe that a corticosteroid injection at this time will give the patient lasting relief as her symptom duration is over 6 months. We will call the patient for follow-up pending C9 approval. Morteza Stern MD Orthopaedic Surgery PGY-1 06/25/22 1:39 PM By using the attestations below, the signing clinician agrees that I have read and verify that the documentation has been personally reviewed by me and ensure that the documentation accurately reflects the encounter. GC: I personally saw this patient on the day of the encounter, performed the mead portion(s) of the service and participated in the management and confirm the resident's documentation. Please note there may be an additional personal documentation from me. [facility] 05-26-2022 Hospital Discharge instructions Patient Education 05/26/2022 08:10:32 Dietary Guidelines to Help Prevent Kidney Stones Dietary Guidelines to Help Prevent Kidney Stones Kidney stones are deposits of minerals and salts that form inside your kidneys. Your risk of developing kidney stones may be greater depending on your diet, your lifestyle, the medicines you take, and whether you have certain medical conditions. Most people can reduce their chances of developing kidney stones by following the instructions below. Depending on your overall health and the type of kidney stones you tend to develop, your dietitian may give you more specific instructions. What are tips for following this plan? Reading food labels Choose foods with no salt added or low-salt labels. Limit your sodium intake to less than 1500 mg per day. Choose foods with calcium for each meal and snack. Try to eat about 300 mg of calcium at each meal. Foods that contain 200 500 mg of calcium per serving include: ?8 oz (237 ml) of milk, fortified nondairy milk, and fortified fruit juice. ?8 oz (237 ml) of kefir, yogurt, and soy yogurt. ?4 oz (118 ml) of tofu. ?1 oz of cheese. ?1 cup (300 g) of dried figs. ?1 cup (91 g) of cooked broccoli. ?1 3 oz can of sardines or mackerel. Most people need 1000 to 1500 mg of calcium each day. Talk to your dietitian about how much calcium is recommended for you. Shopping Buy plenty of fresh fruits and vegetables. Most people do not need to avoid fruits and vegetables, even if they contain nutrients that may contribute to kidney stones. When shopping for convenience foods, choose: ?Whole pieces of fruit. ?Premade salads with dressing on the side. ?Low-fat fruit and yogurt smoothies. Avoid buying frozen meals or prepared deli foods. Look for foods with live cultures, such as yogurt and kefir. Cooking Do not add salt to food when cooking. Place a salt shaker on the table and allow each person to add his or her own salt to taste. Use vegetable protein, such as beans, textured vegetable protein (TVP), or tofu instead of meat in pasta, casseroles, and soups. Meal planning Eat less salt, if told by your dietitian. To do this: ?Avoid eating processed or premade food. ?Avoid eating fast food. Eat less animal protein, including cheese, meat, poultry, or fish, if told by your dietitian. To do this: ?Limit the number of times you have meat, poultry, fish, or cheese each week. Eat a diet free of meat at least 2 days a week. ?Eat only one serving each day of meat, poultry, fish, or seafood. ?When you prepare animal protein, cut pieces into small portion sizes. For most meat and fish, one serving is about the size of one deck of cards. Eat at least 5 servings of fresh fruits and vegetables each day. To do this: ?Keep fruits and vegetables on hand for snacks. ?Eat 1 piece of fruit or a handful of berries with breakfast. ?Have a salad and fruit at lunch. ?Have two kinds of vegetables at dinner. Limit foods that are high in a substance called oxalate. These include: ?Spinach. ?Rhubarb. ?Beets. ?Potato chips and turkmen fries. ?Nuts. If you regularly take a diuretic medicine, make sure to eat at least 1 2 fruits or vegetables high in potassium each day. These include: ?Avocado. ?Banana. ?[place], prune, carrot, or tomato juice. ?Baked potato. ?Cabbage. ?Beans and split peas. General instructions Drink enough fluid to keep your urine clear or pale yellow. This is the most important thing you can do. Talk to your health care provider and dietitian about taking daily supplements. Depending on your health and the cause of your kidney stones, you may be advised: ?Not to take supplements with vitamin C. ?To take a calcium supplement. ?To take a daily probiotic supplement. ?To take other supplements such as magnesium, fish oil, or vitamin B6. Take all medicines and supplements as told by your health care provider. Limit alcohol intake to no more than 1 drink a day for non women and 2 drinks a day for men. One drink equals 12 oz of beer, 5 oz of wine, or 1 oz of hard liquor. Lose weight if told by your health care provider. Work with your dietitian to find strategies and an eating plan that works best for you. What foods are not recommended? Limit your intake of the following foods, or as told by your dietitian. Talk to your dietitian about specific foods you should avoid based on the type of kidney stones and your overall health. Grains Breads. Bagels. Rolls. Baked goods. Salted crackers. Cereal. Pasta. Vegetables Spinach. Rhubarb. Beets. Canned vegetables. Pickles. Olives. Meats and other protein foods Nuts. Nut butters. Large portions of meat, poultry, or fish. Salted or cured meats. Deli meats. Hot dogs. Sausages. Dairy Cheese. Beverages Regular soft drinks. Regular vegetable juice. Seasonings and other foods Seasoning blends with salt. Salad dressings. Canned soups. Soy sauce. Ketchup. Barbecue sauce. Canned pasta sauce. Casseroles. Pizza. Lasagna. Frozen meals. Potato chips. Kyrgyz fries. Summary You can reduce your risk of kidney stones by making changes to your diet. The most important thing you can do is drink enough fluid. You should drink enough fluid to keep your urine clear or pale yellow. Ask your health care provider or dietitian how much protein from animal sources you should eat each day, and also how much salt and calcium you should have each day. This information is not intended to replace advice given to you by your health care provider. Make sure you discuss any questions you have with your health care provider. Document Released: 07/18/2011 Document Revised: 07/13/2019 Document Reviewed: 03/03/2017 [employer] Patient Education 2020 [employer]. Follow Up Care 05/13/2021 09:33:00 With:JEFFREY AVELAR, Daniel Rios, URL Address: [facility] [address] , [place] [address]- When: Unknown [facility] Evaluation + Plan note Future Appointments Appointment Date:05/26/2022 08:45:00 AM Scheduled Provider:Daniel SALMON MD Location:[facility] Appointment Type:URO Office Visit [facility] Evaluation + Plan note Future Appointments Appointment Date:05/26/2022 08:45:00 AM Scheduled Provider:Daniel SALMON MD Location:[facility] Appointment Type:URO Office Visit Diagnostic Tests PendingUrine Culture 07/02/21 [facility] Evaluation + Plan note Future Appointments Appointment Date:05/29/2023 08:00:00 AM Scheduled Provider:Daniel SALMON MD Location:[facility] Appointment Type:URO Office Visit [facility] Hospital course Narrative No data available for this section [facility] Hospital Discharge instructions No data available for this section [facility] Progress note No data available for this section [facility] Summary Purpose Family History No Family History Records FoundNo Family History Records FoundNo Family History Records FoundNo Family History Records Found Advance Directives No Advanced Directives Records FoundNo Advanced Directives Records FoundNo Advanced Directives Records FoundNo Advanced Directives Records Found Additional Source Comments INFORMATION SOURCE (unrecogn ized section and content) DATE CREATED AUTHOR 05/29/2021 [facility] DATE CREATED AUTHOR AUTHOR'S ORGANIZ ATION 08/18/2022 [facility] DATE CREATED AUTHOR AUTHOR'S ORGANIZ ATION 08/21/2022 [facility] DATE CREATED AUTHOR AUTHOR'S ORGANIZ ATION 02/15/2023 [facility] Patient Care team informatio n (unrecognized section and content) Personnel Name: Shai Lau MD Address: Address: [address] [place] [address] FOR RECORDS PERTAINING TO PATIENTS WHO ARE OR HAVE BEEN ENROLLED IN A CHEMICAL DEPENDENCY/SUBSTANCEABUSE PROGRAM, SOME INFORMATION MAY BE OMITTED. This clinical summary was aggregated from multiple sources. Caution should be exercised in using it in the provision of clinical care. This summary normalizes information from multiple sources, and as a consequence, information in this document may materially change the coding, format and clinical context of patient data. In addition, data may be omitted in some cases. CLINICAL DECISIONS SHOULD BE BASED ON THE PRIMARY CLINICAL RECORDS. [facility] [employer] provides no warranty or guarantee of the accuracy or completeness of information in this document.
--- NOTE | 2023-04-23 08:27 | MR_ITS ---
[address] [address] Patient Name: KASSANDRA LOPEZ MRN: [id number] date: 1965 Sex: F Assigned Patient Location: MRI Current Patient Location: MRI Accession/Order Number: [id number] Exam Date: 04/23/2023 08:40 Report Date: 04/23/2023 10:02 At the request of: NOEMI ORELLANA Procedure: MR ankle LT wo con EXAM: MR ankle LT wo con HISTORY: Plantar Fascial Fibromatosis M72.2 COMPARISON: 01/22/2023 TECHNIQUE: MRI images obtained with multiple sequences. Noncontrast MRI of the left ankle. FINDINGS: Extensor, flexor and peroneal tendons are intact. Anterior and posterior syndesmotic ligaments are intact. Anterior talofibular, posterior talofibular and calcaneofibular ligaments are intact. Achilles tendon is intact. There is edema of the inferior calcaneus at the attachment of the plantar fascia. There is thickening of the central plantar fascial fibers. Findings are consistent with plantar fasciitis. Small calcaneal plantar enthesophyte. No ankle joint effusion. MR/MR ankle LT wo con IMPRESSION: 1. Plantar fasciitis. There is thickening of the central plantar fascial fibers with associated edema of the adjacent calcaneus. 2. No acute ligamentous abnormality. 3. Ankle mortise is maintained. No ankle joint effusion. Electronically authenticated by: JOSEFA MANN Date: 04/23/2023 10:02
== END 2023-04-23 08:22 | disposition home or self-care (01) ==
LOC: MRI 08:21
PROVIDERS: PCP Family Medicine; Visit Provider Physician Assistant
DX: M72.2 Plantar fascial fibromatosis (principal)
CPT/HCPCS: 73721

== ENCOUNTER 2023-05-19 11:06 | Outpatient (OUT) | payer OTHER, SELFPAY ==
--- NOTE | 2023-05-19 11:09 | ECG_ITS ---
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
--- OUTSIDE RECORDS SUMMARY | 2023-05-19 11:16 | XMS_ITS | CCD ---
Author Name Unknown Address [address] [place] [address] Organization [facility] Care Team Providers Care Vegetable [employer] Manager Name Role Phone Shai Lau Primary Care Physician [phone] Daniel SALMON Attending Unavailable SALMON, Daniel Rios [...] DR GIBBONS Primary Care Unavailable MAX KOWALSKI Admitting Unavailable MAX KOWALSKI Attending Unavailable SKIE, MAX Attending Unavailable SKIE, MAX Attending Unavailable SKIE, MAX Attending Unavailable SKIE, MAX Attending Unavailable SKIE, MAX Attending Unavailable Allergies Allergy Classification Reported Allergen(s) Allergy Type Date of Onset Reaction(s) Facility (5 sources) levoFLOXacin; Translations: [levofloxacin] Drug Allergy 02-22-20 16 .. [facility] (5 sources) PHENobarbital; Translations: [phenobarbital] Drug Allergy 04-02-20 15 .. [facility] (4 sources) Sulfonamides (Antibiotic); Translations: [sulfa drugs] Drug allergy RASH [facility] (1 source) benzoin resin Drug Allergy 08-21-19 16 [facility] (1 source) levoFLOXacin Drug Allergy 08-21-19 16 [facility] (1 source) Sulfonamides (Antibiotic) Drug allergy (disorder) 08-21-19 16 [facility] (1 source) Sulfamethoxazole / Trimethoprim; Translations: [SULFAMETHOXAZOLE-TR IMETHOPRIM] Drug Allergy 07-07-19 15 [facility] (1 source) Sulfonamides (Antibiotic); Translations: [SULFA (SULFONAMIDE ANTIBIOTICS)] Propensity to adverse reactions to drug (disorder) 12-20-19 15 [facility] Medications Current Medications Medication Drug Class(es) [...] day(s), # 14 cap(s), Refills(s) 0, Pharmacy: [facility]/pharmacy #[id number], 161, cm, 05/13/21 9:04:00 EST, Height/Length Dosing, 91.5, kg, 05/13/21 9:04:00 EST, Weight Dosing Start Date: 07/02/21 Stop Date: 07/09/21 Status: Ordered fluconazole 150 mg oral tablet (2 sources) Azole Antifungal Start: 07-02-2021 End: 07-09-2021 Diflucan 150 mg Tab See Instructions, 1 tab po q72 hrs x 3 doses, then dc, # 3 tab(s), Refills(s) 0, Pharmacy: [facility]/pharmacy #[id number], 161, cm, 05/13/21 9:04:00 EST, Height/Length Dosing, [...] SCREEN MALIG NEOPLASM COLON] Onset: 3 Episodic Unclassified (3 sources) CONTACT [...] Classification Problem Date Documented Da te Episodic/Chronic Residual codes; unclassified (2 sources) Pain; Translations: [Pain] Onset: 11-26-2022 Episodic Unclassified (1 source) CONTACT W/AND (SUSP) EXPOS COVID-19; Translations: [CONTACT W/AND (SUSP) EXPOS COVID-19] Onset: 11-15-2021 Results Test Name Value Interpretation Reference Range Facility Follow-Upon 04-22-2023 Follow-Up [id number] Kassandra Lopez 1965 Date Provider Department Center 04/22/2023 MAX MUSTAFA [facility] Family History Family history unknown: Yes Level of Service:45889 [place] OFFICE/OUTPT VISIT,PROCEDURE ONLY Reason for Visit and Comments: Follow-up [044550] - Constant tingling - thumb goes numb when driving or holding something for a bit and the numbness also goes into the middle finger as well. Pain [136] - Constant tingling - thumb goes numb when driving or holding something for a bit and the numbness also goes into the middle finger as well. Normal [facility] Follow-Upon 02-10-2023 Follow-Up [id number] Kassandra Lopez 1965 Date Provider Department Center 02/10/2023 [facility] MUSTAFA [facility] Family History Family history unknown: Yes Level of Service:96585 [place] OFFICE/OUTPATIENT ESTABLISHED LOW MDM 20-29 MIN Reason for Visit and Comments: Follow-up [269949] Normal [facility] Follow-Upon 11-26-2022 Follow-Up [id number] Kassandra Lopez 1965 Date Provider Department Center 11/26/2022 [facility] MUSTAFA MP Family History Family history unknown: Yes Level of Service:67003 [place] OFFICE/OUTPATIENT ESTABLISHED LOW MDM 20-29 MIN Reason for Visit and Comments: Pain [136] Follow-up [760238] [facility] Office Visiton 10-15-2022 Follow-up visit [id number] Kassandra Lopez 1965 F Date Provider Department Center 10/15/2022 [place] KOWALSKI MP ORTHO MPORTHO Family History Family history unknown: Yes Level of Service:04802 NC POSTOP FOLLOW UP VISIT RELATED TO ORIGINAL PX (GC) Reason for Visit and Comments: Post-op [483] Follow-up [842841] [facility] 36on 10-02-2022 36 I spoke to the patient to see how she is doing after her recent surgery with Dr Kowalski. Ms Lopez stated she is doing well and that her pain is manageable with medications. She has a follow up with Dr Kowalski on October 15 at 120. She had no other questions or concerns. [facility] HPon 10-01-2022 HP History Of Present Illness Guillermina Lopez is [...] Active Problems: Hyperlipidemia L C TR Normal [facility] OPNOTEon 10-01-2022 OPNOTE Operative Note Patient: Guillermina Lopez Date of Surgery: 10/01/2022 : 1965 Pre-operative Diagnosis: Carpal Tunnel Syndrome left Hand Post-operative Diagnosis: same Operation: Carpal Tunnel Release, left (13841) Surgeon: Max Kowalski MD [facility] Worker: Drew Chacon MD Staff: [employer] Manager: Mayte Chery RN Scrub Person: Cayetano Ace [...] PACU Condition: stable Max Kowalski MD Normal [facility] POCT GLUCOSE METER UNSOLICIT ED RESULTSon 10-01-2022 Glucose [Mass/Vol] 91 mg/dL Normal 70-105 [facility] Comment on above: Order Comment: Waive d Testing in the ED is performed under the ED CLIA certificate #[id number]. Result Comment: epaw low Performed By: #### L [id number] ####[facility] [place] [address] [id number] 09-24-2022 [id number] NPO AFTER MIDNIGHT. MUST HAVE A CARDING SUPERVISOR TO TAKE YOU HOME AND SOMEONE TO STAY FOR 24 HOURS AFTER SURGERY. NO JEWELRY OR VALUABLES. HOLD THE MEDS WE SPOKE ABOUT: VITAMINS STARTING 09-27. TAKE THE MEDS WE SPOKE ABOUT WITH A SIP OF WATER DOS: PREVACID, ADIPEX. BRING INSURANCE CARD AND PHOTO ID AND MED LIST. Normal [facility] CITRATE URINE 24HRon 023 Citric Acid, U, 24hr 363 mg/24 hr Normal 320-1240 [facility] Comment on above: Result Comment: This test was developed and its performance characteristics determined by [employer]. It has not been cleared or approved by the Food and Drug Administration. Performed By: #### C ITRATU #### [facility] [address] [place] [address] Dr. Prabhu Lopez Citric Acid, Urine 338 mg/L Normal Undefined [facility] Comment on above: Performed By: #### C ITRATU #### [facility] [address] [address] [address] Prabhu Lopez OXALATE 24HR URINEon 023 Oxalates, Urine 15 mg/L Normal Undefined [facility] Comment on above: Performed By: #### O X24HR #### [facility] [address] [address] [address] Prabhu Lopez Oxalates, Urine 24hr 16 mg/24 hr Normal 4- [facility] Comment on above: Performed By: #### O X24HR #### [facility] [address] [address] [address] Prabhu Lopez Lab Reportson 08-17-2022 Lab Reports 192.37 [id number] #1.00CD:127 Normal [facility] Lab Reports . [id number] #1.00CD:127 Normal [facility] Lab Reports . [id number] #1.00CD:127 Normal [facility] MAGNESIUM 24HR URINEon 08-15 Magnesium 24hr Urine 94.6 mg/24 hr Normal 12.0-293.0 T [facility] Comment on above: Performed By: #### U JESI, BMP #### [facility] [address] [address] [address] Prabhu Lopez Magnesium UR 8.8 mg/dL Normal Not Estab. [facility] Comment on above: Performed By: #### U JESI, BMP #### [facility] [address] [place] [address] Dr. Prabhu Lopez PHOSPHORUS 24HR URINEon 08-04 Phosphorus, Urine 48.2 mg/dL Normal Not Estab. [facility] Comment on above: Performed By: #### P HOS 24 #### [facility] [address] [place] [address] Dr. Prabhu Lopez Phosphorus, Urine 24hr 518 mg/24 hr Normal 261-1078 [facility] Comment on above: Performed By: #### P HOS 24 #### [facility] [address] [place] [address] Dr. Prabhu Lopez URIC ACID 24 HR URINEon 08-04 Uric Acid, Urine 29.6 mg/dL Normal Not Estab. [facility] Comment on above: Performed By: #### U JESI, BMP #### [facility] [address] [place] [address] Dr. Prabhu Lopez Uric Acid, Urine 24hr 318.2 mg/24 hr Normal 173.7-902.1 [facility] Comment on above: Performed By: #### U JESI, BMP #### [facility] [address] [place] [address] Dr. Prabhu Lopez CALCIUM 24 HR URINEon 2022 CALC, 24 HR UR 76.3 mg/24 hr Critically low 100.0-300.0 Th [facility] Comment on above: Performed By: #### C [id number] #### [facility] [address] [place] [address] Dr. Prabhu Lopez UR CALCIUM 7.1 mg/dL Normal 5.1-21.0 [facility] Comment on above: Performed By: #### C ALC24U #### [facility] [address] [place] [address] Dr. Prabhu Lopez UR TOT VOL 1075 ml/24 HR Normal [facility] Comment on above: Performed By: #### C ALC24U #### [facility] [address] [place] [address] Dr. Prabhu Lopez Performed By: #### N A24U, [id number] #### [facility] [address] [place] [address] Dr. Prabhu Lopez CBC AUTO DIFFon 08-14-2022 BASO # 0.1 103/ul Normal 0.0-0.1 [facility] Comment on above: Performed By: #### U JESI, BMP #### [facility] [address] [place] [address] Dr. Prabhu Lopez Basophils/100 WBC (Bld) 1.3 % Normal 0.2-2.0 [facility] Comment on above: Performed By: #### U JESI, BMP #### [facility] [address] [place] [address] Dr. Prabhu Lopez EO # 0.3 103/ul Normal 0.0-0.7 [facility] Comment on above: Performed By: #### U JESI, BMP #### [facility] [address] [place] [address] Dr. Prabhu Lopez Eosinophils/100 WBC (Bld) 5.2 % Normal 0.9-7.0 [facility] Comment on above: Performed By: #### U JESI, BMP #### [facility] [address] [place] [address] Dr. Prabhu Lopez Erythrocyte distribution width (RBC) [Ratio] 12.9 % Normal 11.0-15.0 [facility] Comment on above: Performed By: #### U JESI, BMP #### [facility] [address] [place] [address] Dr. Prabhu Lopez Hematocrit (Bld) [Volume fraction] 42.7 % Normal 36.0-48.0 [facility] Comment on above: Performed By: #### U JESI, BMP #### [facility] [address] [address] [address] Prabhu Lopez Hemoglobin (Bld) [Mass/Vol] 13.4 g/dL Normal 12.0-16.0 [facility] Comment on above: Performed By: #### U JESI, BMP #### [facility] [address] [address] [address] Prabhu Lopez IG # 0.02 10e3/ul Normal 0.00-0.03 [facility] Comment on above: Performed By: #### U JESI, BMP #### [facility] [address] [address] [address] Prabhu Lopez IG % 0.4 % Normal 0.0-0.5 [facility] Comment on above: Performed By: #### U JESI, BMP #### [facility] [address] [address] [address] Prabhu Lopez LYMPH # 2.0 103/ul Normal 1.2-3.8 [facility] Comment on above: Performed By: #### U JESI, BMP #### [facility] [address] [address] [address] Prabhu Lopez Lymphocytes/100 WBC (Bld) 41.5 % Normal 20.5-60.0 [facility] Comment on above: Performed By: #### U JESI, BMP #### [facility] [address] [address] [address] Prabhu Lopez MANUAL DIFF REQ NO Normal [facility] Comment on above: Performed By: #### U JESI, BMP #### [facility] [address] [address] [address] Prabhu Lopez MCH (RBC) [Entitic mass] 28.7 pg Normal 26.7-34.0 [facility] Comment on above: Performed By: #### U JESI, BMP #### [facility] [address] [place] [address] Dr. Prabhu Lopez MCHC (RBC) [Mass/Vol] 31.4 g/dL Normal 29.9-35.2 [facility] Comment on above: Performed By: #### U JESI, BMP #### [facility] [address] [place] [address] Dr. Prabhu Lopez MCV (RBC) [Entitic vol] 91.4 fL Normal 81.0-99.0 [facility] Comment on above: Performed By: #### U JESI, BMP #### [facility] [address] [place] [address] Dr. Prabhu Lopez MONO # 0.4 103/ul Normal 0.3-0.8 [facility] Comment on above: Performed By: #### U JESI, BMP #### [facility] [address] [place] [address] Dr. Prabhu Lopez Monocytes/100 WBC (Bld) 8.3 % Normal 1.7-12.0 [facility] Comment on above: Performed By: #### U JESI, BMP #### [facility] [address] [place] [address] Dr. Prabhu Lopez NEUT # 2.1 103/ul Normal 1.4-6.5 [facility] Comment on above: Performed By: #### U JESI, BMP #### [facility] [address] [place] [address] Dr. Prabhu Lopez Neutrophils/100 WBC (Bld) 43.3 % Normal 43.0-75.0 [facility] Comment on above: Performed By: #### U JESI, BMP #### [facility] [address] [place] [address] Dr. Prabhu Lopez Platelet mean volume (Bld) [Entitic vol] 11.7 fL Normal 9.5-13.5 [facility] Comment on above: Performed By: #### U JESI, BMP #### [facility] [address] [place] [address] Dr. Prabhu Lopez PLT 237 103/ul Normal 150-450 [facility] Comment on above: Performed By: #### U JESI, BMP #### [facility] [address] [place] [address] Dr. Prabhu Lopez RBC 4.67 106/ul Normal 4.20-5.40 [facility] Comment on above: Performed By: #### U JESI, BMP #### [facility] [address] [place] [address] Dr. Prabhu Lopez WBC 4.8 103/ul Normal 4.0-11.0 [facility] Comment on above: Performed By: #### U JESI, BMP #### [facility] [address] [place] [address] Dr. Prabhu Lopez CREA 24 HR URINEon 3 CREA, 24 HR UR 875.48 mg/24 hr Normal 800.00-1,8 00.0 0 [facility] Comment on above: Performed By: #### N A24U, [id number] #### [facility] [address] [place] [address] Dr. Prabhu Lopez URINE CREAT 81.44 mg/dL Normal 20.00-300.00 [facility] Comment on above: Performed By: #### N A24U, [id number] #### [facility] [address] [place] [address] Dr. Prabhu Lopez FREE THYROXINE INDEX T7on FTI 2.34 Normal 1.30-4.50 [facility] Comment on above: Performed By: #### U JESI, BMP #### [facility] [address] [place] [address] Dr. Prabhu Lopez T3U 33.0 % Normal 30.0-39.0 [facility] Comment on above: Performed By: #### U JESI, BMP #### [facility] [address] [place] [address] Dr. Prabhu Lopez T4 [Mass/Vol] 7.10 ug/dL Normal 4.80-13.90 [facility] Comment on above: Performed By: #### U JESI, BMP #### [facility] [address] [place] [address] Dr. Prabhu Lopez GLYCOHEMOGLOBIN A1Con 2022 ADA RECOMMENDATION SEE BELOW Normal [facility] Comment on above: Result Comment: ADA RECOMMENDED LIMIT 4.0 - 6.0 ADA THERAPEUTIC TARGET < 7.0 ACTION SUGGESTED > 7.0 Performed By: #### U JESI, BMP #### [facility] [address] [address] [address] Prabhu Lopez Glucose [Mass/Vol] 123 mg/dL Normal [facility] Comment on above: Performed By: #### U JESI, BMP #### [facility] [address] [address] [address] Prabhu Lopez HbA1c (Bld) [Mass fraction] 5.9 % Normal 4.5-6.2 [facility] Comment on above: Performed By: #### U JESI, BMP #### [facility] [address] [address] [address] Prabhu Lopez LIPID PROFILEon 08-14-2022 CHOL-HDL RATIO NORM SEE BELOW Normal [facility] Comment on above: Result Comment: 3.3 - 4.4 LOW RISK 4.4 - 7.1 AVERAGE RISK 7.1 - 11.0 MODERATE RISK >11.0 HIGH RISK Performed By: #### U JESI, BMP #### [facility] [address] [address] [address] Prabhu Lopez Cholesterol [Mass/Vol] 255 mg/dL Critically high <=200 [facility] Comment on above: Performed By: #### U JESI, BMP #### [facility] [address] [address] [address] Prabhu Lopez Cholesterol in HDL [Mass/Vol] 80 mg/dL Critically high 40-60 [facility] Comment on above: Performed By: #### U JESI, BMP #### [facility] [address] [address] [address] Prabhu Lopez Cholesterol in LDL [Mass/Vol] 156.6 mg/dL Normal [facility] Comment on above: Performed By: #### U JESI, BMP #### [facility] [address] [address] [address] Prabhu Lopez Cholesterol.total/Ch olesterol in HDL [Mass ratio] 3.2 {ratio} Normal [facility] Comment on above: Performed By: #### U JESI, BMP #### [facility] [address] [address] [address] Prabhu Lopez HDL NORMAL > or = 60 mg/dl - LOW CARDIOVASCULAR RISK <40 mg/dl - HIGH CARDIOVASCULAR RISK Normal [facility] Comment on above: Performed By: #### U JESI, BMP #### [facility] [address] [address] [address] Prabhu Lopez LDL CALC NORMAL SEE BELOW Normal [facility] Comment on above: Result Comment: <100 mg/dl OPTIMAL 100 - 129 mg/dl NEAR OR ABOVE OPTIMAL 130 - 159 mg/dl BORDERLINE HIGH 160 - 189 mg/dl HIGH >190 mg/dl VERY HIGH Performed By: #### U JESI, BMP #### [facility] [address] [address] [address] Prabhu Lopez Triglyceride [Mass/Vol] 92 mg/dL Normal <=150 [facility] Comment on above: Performed By: #### U JESI, BMP #### [facility] [address] [address] [address] Prabhu Lopez VLDL CALC 18.4 mg/dL Normal [facility] Comment on above: Performed By: #### U JESI, BMP #### [facility] [address] [address] [address] Prabhu Lopez PROF 14(COMP METB)on 023 Albumin [Mass/Vol] 3.9 g/dL Normal 3.4-5.0 [facility] Comment on above: Performed By: #### U JESI, BMP #### [facility] [address] [address] [address] Prabhu Lopez Albumin/Globulin [Mass ratio] 0.8 {ratio} Normal [facility] Comment on above: Performed By: #### U JESI, BMP #### [facility] [address] [place] [address] Dr. Prabhu Lopez ALP [Catalytic activity/Vol] 74 U/L Normal 46-116 [facility] Comment on above: Performed By: #### U JESI, BMP #### [facility] [address] [address] [address] Prabhu Lopez ALT [Catalytic activity/Vol] 29 U/L Normal 14-59 [facility] Comment on above: Performed By: #### U JESI, BMP #### [facility] [address] [address] [address] Prabhu Lopez Anion gap [Moles/Vol] 10.9 mmol/L Normal [facility] Comment on above: Performed By: #### U JESI, BMP #### [facility] [address] [address] [address] Prabhu Lopez AST [Catalytic activity/Vol] 22 U/L Normal 15-37 [facility] Comment on above: Performed By: #### U JESI, BMP #### [facility] [address] [address] [address] Prabhu Lopez Bilirubin [Mass/Vol] 0.7 mg/dL Normal 0.2-1.0 [facility] Comment on above: Performed By: #### U JESI, BMP #### [facility] [address] [address] [address] Prabhu Lopez Calcium [Mass/Vol] 8.9 mg/dL Normal 8.5-10.1 [facility] Comment on above: Performed By: #### U JESI, BMP #### [facility] [address] [place] [address] Dr. Prabhu Lopez Chloride [Moles/Vol] 106 mmol/L Normal 98-107 [facility] Comment on above: Performed By: #### U JESI, BMP #### [facility] [address] [address] [address] Prabhu Lopez CO2 [Moles/Vol] 30.1 mmol/L Normal 21.0-32.0 [facility] Comment on above: Performed By: #### U JESI, BMP #### [facility] [address] [address] [address] Prabhu Lopez Creatinine [Mass/Vol] 0.94 mg/dL Normal 0.55-1.02 [facility] Comment on above: Performed By: #### U JESI, BMP #### [facility] [address] [address] [address] Prabhu Lopez EGFR-AF LATVIAN >60 Normal >=60 [facility] Comment on above: Performed By: #### U JESI, BMP #### [facility] [address] [address] [address] Prabhu Lopez EGFR-NON AF LATVIAN >60 Normal >=60 [facility] Comment on above: Performed By: #### U JESI, BMP #### [facility] [address] [address] [address] Prabhu Lopez Globulin (S) [Mass/Vol] 4.8 g/dL Normal [facility] Comment on above: Performed By: #### U JESI, BMP #### [facility] [address] [address] [address] Prabhu Lopez Glucose [Mass/Vol] 96 mg/dL Normal 74-106 [facility] Comment on above: Performed By: #### U JESI, BMP #### [facility] [address] [address] [address] Prabhu Lopez Potassium [Moles/Vol] 4.0 mmol/L Normal 3.5-5.1 [facility] Comment on above: Performed By: #### U JESI, BMP #### [facility] [address] [address] [address] Prabhu Lopez Protein [Mass/Vol] 8.7 g/dL Critically high 6.4-8.2 T [facility] Comment on above: Performed By: #### U JESI, BMP #### [facility] [address] [address] [address] Prabhu Lopez Sodium [Moles/Vol] 143 mmol/L Normal 136-145 [facility] Comment on above: Performed By: #### U JESI, BMP #### [facility] [address] [address] [address] Prabhu Lopez Urea nitrogen [Mass/Vol] 13.0 mg/dL Normal 7.0-18.0 [facility] Comment on above: Performed By: #### U JESI, BMP #### [facility] [address] [address] [address] Prabhu Lopez Urea nitrogen/Creatinine [Mass ratio] 13.8 mg/mg Normal [facility] Comment on above: Performed By: #### U JESI, BMP #### [facility] [address] [address] [address] Prabhu Lopez PTH INTACTon 08-14-2022 PTH, Intact 17 pg/mL Normal 15-65 [facility] Comment on above: Performed By: #### U JESI, BMP #### [facility] [address] [place] [address] Dr. Prabhu Lopez SODIUM 24 HR URINEon 023 NA, 24 HR UR 111 mmol/24 hr Normal 40-220 [facility] Comment on above: Performed By: #### N A24U, [id number] #### [facility] [address] [place] [address] Dr. Prabhu Lopez Sodium (U) [Moles/Vol] 103 mmol/L Critically high 30-90 [facility] Comment on above: Performed By: #### N A24U, [id number] #### [facility] [address] [place] [address] Dr. Prabhu Lopez TSHon 08-14-2022 TSH 2.531 uIU/mL Normal 0.358-3.740 [facility] Comment on above: Performed By: #### U JESI, BMP #### [facility] [address] [place] [address] Dr. Prabhu Lopez PROF CHEM 8 (BAS METB)on Anion gap [Moles/Vol] 8.9 mmol/L Normal [facility] Comment on above: Performed By: #### U JESI, BMP #### [facility] Laboratory [address] [place] [address] Dr. Prabhu Lopez Calcium [Mass/Vol] 9.3 mg/dL Normal 8.5-10.1 [facility] Comment on above: Performed By: #### U JESI, BMP #### [facility] Laboratory [address] [place] [address] Dr. Prabhu Lopez Chloride [Moles/Vol] 108 mmol/L Critically high 98-107 [facility] Comment on above: Performed By: #### U JESI, BMP #### [facility] Laboratory [address] [address] [address] Prabhu Lopez CO2 [Moles/Vol] 28.5 mmol/L Normal 21.0-32.0 [facility] Comment on above: Performed By: #### U JESI, BMP #### [facility] Laboratory [address] [address] [address] Prabhu Lopez Creatinine [Mass/Vol] 1.08 mg/dL Critically high 0.55-1.02 [facility] Comment on above: Performed By: #### U JESI, BMP #### [facility] [address] [address] [address] Prabhu Lopez EGFR-AF LATVIAN >60 Normal >=60 [facility] Comment on above: Performed By: #### U JESI, BMP #### [facility] [address] [address] [address] Prabhu Lopez EGFR-NON AF LATVIAN 52 mL/min/1.73m2 Critically low >=60 [facility] Comment on above: Performed By: #### U JESI, BMP #### [facility] [address] [address] [address] Prabhu Lopez Glucose [Mass/Vol] 94 mg/dL Normal 74-106 [facility] Comment on above: Performed By: #### U JESI, BMP #### [facility] Laboratory [address] [address] [address] Prabhu Lopez Potassium [Moles/Vol] 3.4 mmol/L Critically low 3.5-5.1 [facility] Comment on above: Performed By: #### U JESI, BMP #### [facility] [address] [address] [address] Prabhu Lopez Sodium [Moles/Vol] 142 mmol/L Normal 136-145 [facility] Comment on above: Performed By: #### U JESI, BMP #### [facility] [address] [address] [address] Prabhu Lopez Urea nitrogen [Mass/Vol] 17.0 mg/dL Normal 7.0-18.0 [facility] Comment on above: Performed By: #### U JESI, BMP #### [facility] [address] [address] [address] Prabhu Lopez Urea nitrogen/Creatinine [Mass ratio] 15.7 mg/mg Normal [facility] Comment on above: Performed By: #### U JESI, BMP #### [facility] Laboratory [address] [address] [address] Prabhu Lopez URIC ACID SERUMon 08-12-2022 Urate [Mass/Vol] 4.8 mg/dL Normal 2.6-6.0 [facility] Comment on above: Performed By: #### U JESI, BMP #### [facility] Laboratory [address] [address] [address] Prabhu Lopez 36on 08-04-2022 36 Surgery was approved. I called pt to schedule. Pt did not answer LMOV to return call. Normal [facility] Prep for Procedureon 023 Prep for Procedure [id number] Guillermina Lopez 1965 F Date Provider Department Center 08/04/2022 PATRICIA MAK ORTHO MPORTHO No family history on file Normal [facility] Follow-Upon 06-25-2022 Follow-Up [id number] Guillermina Lopez 1965 Date Provider Department Center 06/25/2022 MAX MUSTAFA ORTHO MPORTHO No family history on file Level of Service:97710 NC OFFICE/OUTPATIENT ESTABLISHED LOW MDM 20-29 MIN Reason for Visit and Comments: Follow-up [013318] Normal [facility] RAD - MISCon 05-27-2022 RAD - MISC [id number] Normal [facility] Ambulatory Visit Summaryon 0 05-26-2022 Ambulatory Visit Summary KASSANDRA LOPEZ :1965 Visit Date:05/26/2022 Ambulatory Visit Instructions Your Diagnosis Kidney stone Chronic cystitis Female stress incontinence Tests Performed Urnls Dip Stick Auto w/o Microscopy POC 70480 XR Abdomen 1 View -- Results Pending -- Please visit your patient portal for your results or contact your primary care physician. Your Care Team Attending Physician - Daniel SALMON MD Primary Care Physician - Shai Lau MD This Is Your Medications List Contact [...] Follow-Up Appointments Thursday 8:00 AM EST With: Daniel SALMON MD Where: [facility] Patient Educationon 05-26-19 Patient Education Urology Dietary [...] Rhubarb. ? Beets. ? Potato chips and italian fries. ? Nuts. ? If you regularly take a diuretic medicine, make sure to eat at least 1?2 fruits or vegetables high in potassium each day. These include: ? Avocado. ? Banana. ? Tilden, prune, carrot, or tomato juice. ? Baked [...] and other foods Seasoning blends with salt. Don barnard (more content not included)... Normal [facility] Urology Office/Clinic Noteon 05-26-2022 Urology Office/Clinic Note [...] urinary tract calculi. KUB done 05/22/22 at [facility] shows right nephrolithiasis versus overlying bowel [...] URL [facility] [address], [place] [address]- Additional Instructions: 1 year with KUB, met [...] Protein Urine Dipstick: Negative (05/26/22 08:54:00) Specific [place] Urine Dipstick: 1.025 (05/26/22 08:54:00) Urine Appearance Urine Dipstick: Clear (05/26/22 08:54:00) Urine Color Urine Dipstick: Yellow (05/26/22 08:54:00) pH Urine Dipstick: 5.5 (05/26/22 08:54:00 (more content not included)... Normal [facility] Comment on above: Result Comment: Elec tronically Signed By: Daniel SALMON MD\.br\Date and Time Signed: 05/26/22 09:32 EST\.br\Electronically Co-Signed By: Jayshree Santiago\.br\Date and Time Co-Signed: 05/26/22 09:29 EST XR [...] WIL KAYE Date: 2022-05-23 09:40 Normal [facility] Covid-19 PCR (CVDTB[facility])on 11-04 SARS-CoV-2 (COVID-19) RNA TANGELA+probe Ql (Unsp spec) Not detected Normal NOT DETECTED [facility] Comment on above: Result Comment: [...] for this test is supported by the Liberty of Health and Human Service's declaration that [...] longer be used). Performed By: #### C VDTBH #### [facility] Laboratory [address] [place] [address] Dr. Prabhu Lopez Covid-19 PCR ([facility])on SARS-CoV-2 (COVID-19) RNA TANGELA+probe Ql (Unsp spec) Not detected Normal NOT DETECTED [facility] Comment on above: Result Comment: This test is not yet approved or cleared by the [place] FDA. When there are no FDA-approved or cleared tests available, and other criteria are met, FDA can make tests available under an emergency access mechanism called an Emergency Use Authorization (EUA). The EUA for this test is supported by the Liberty of Health and Human Service's (HHS's) declaration [...] consistent with SARS-CoV-2. Performed By: #### C VDTBH #### [facility] [address] [place] [id number] Prabhu Lopez B-Type Natriuretic Peptideon 02-12-2021 Natriuretic peptide B (Bld) [Mass/Vol] 36.0 pg/mL Normal 5-100 [facility] Comment on above: Result Comment: PERF ORMED BY: [place] [address] PATHOLOGIST FURNITURE BUILDER NICANOR BALTAZAR M.D. Performed By: #### C BC, PTT, CKMB, BMP, CK, BNP, PT, HS TROP #### [address] Basic Metabolic Panelon 11-0 -2020 Calcium [Mass/Vol] 8.9 mg/dL Normal 8.2-10.2 [facility] Comment on above: Performed By: #### C BC, PTT, CKMB, BMP, CK, BNP, PT, HS TROP #### [address] Chloride [Moles/Vol] 104 mmol/L Normal 95-114 [facility] Comment on above: Performed By: #### C BC, PTT, CKMB, BMP, CK, BNP, PT, HS TROP #### [address] CO2 [Moles/Vol] 24.0 mmol/L Normal 22.0-30.0 [facility] Comment on above: Performed By: #### C BC, PTT, CKMB, BMP, CK, BNP, PT, HS TROP #### [address] Creatinine [Mass/Vol] 1.06 mg/dL High 0.44-1.03 [facility] Comment on above: Performed By: #### C BC, PTT, CKMB, BMP, CK, BNP, PT, HS TROP #### [address] Creatinine Clr Calc Pharmacy 64.12 Normal [facility] Comment on above: Result Comment: PERF ORMED BY: [place] [address] PATHOLOGIST FURNITURE BUILDER NICANOR BALTAZAR M.D. Performed By: #### C BC, PTT, CKMB, BMP, CK, BNP, PT, HS TROP #### [address] Estimated GFR ( Najma > 60 Normal [facility] Comment on above: Result Comment: GFR estimated reference range: According to KDOQI guidelines, <60 ml/min/1.73m2 is sufficient to diagnose a patient with chronic kidney disease. Performed By: #### C BC, PTT, CKMB, BMP, CK, BNP, PT, HS TROP #### [facility] [address] Estimated GFR (Non- Am 54 Normal [facility] Comment on above: Performed By: #### C BC, PTT, CKMB, BMP, CK, BNP, PT, HS TROP #### [facility] [address] Glucose [Mass/Vol] 106 mg/dL High 70-100 [facility] Comment on above: Result Comment: [place] Glucose Reference Range is dependent on time and content of last meal. Glucose of more than 200 mg/dL in a nonstressed, ambulatory subject supports the diagnosis of Diabetes Mellitus. ADA recommended reference range Performed By: #### C BC, PTT, CKMB, BMP, CK, BNP, PT, HS TROP #### [facility] [address] [place] [address] Potassium [Moles/Vol] 3.3 mmol/L Low 3.5-5.1 [facility] Comment on above: Performed By: #### C BC, PTT, CKMB, BMP, CK, BNP, PT, HS TROP #### [facility] [address] Sodium [Moles/Vol] 138 mmol/L Normal 136-146 [facility] Comment on above: Performed By: #### C BC, PTT, CKMB, BMP, CK, BNP, PT, HS TROP #### [facility] [address] Urea nitrogen [Mass/Vol] 11 mg/dL Normal 9-23 [facility] Comment on above: Performed By: #### C BC, PTT, CKMB, BMP, CK, BNP, PT, HS TROP #### [address] Complete Blood Count Auto Di ffon 02-12-2021 Basophils (Bld) [#/Vol] 0.1 10*3/uL Normal 0.0-0.2 [facility] Comment on above: Result Comment: PERF ORMED BY: [place] [address] PATHOLOGIST FURNITURE BUILDER NICANOR BALTAZAR M.D. Performed By: #### C BC, PTT, CKMB, BMP, CK, BNP, PT, HS TROP #### [address] Basophils/100 WBC (Bld) 1.2 % Normal . [facility] Comment on above: Performed By: #### C BC, PTT, CKMB, BMP, CK, BNP, PT, HS TROP #### [address] Eosinophils (Bld) [#/Vol] 0.2 10*3/uL Normal 0.0-0.45 [facility] Comment on above: Performed By: #### C BC, PTT, CKMB, BMP, CK, BNP, PT, HS TROP #### [address] Eosinophils/100 WBC (Bld) 3.2 % Normal . [facility] Comment on above: Performed By: #### C BC, PTT, CKMB, BMP, CK, BNP, PT, HS TROP #### [address] Erythrocyte distribution width (RBC) [Ratio] 13.5 % Normal 11.9-15.3 [facility] Comment on above: Performed By: #### C BC, PTT, CKMB, BMP, CK, BNP, PT, HS TROP #### [address] Hematocrit (Bld) [Volume fraction] 36.8 % Normal 34.0-46.4 [facility] Comment on above: Performed By: #### C BC, PTT, CKMB, BMP, CK, BNP, PT, HS TROP #### [address] Hemoglobin (Bld) [Mass/Vol] 12.2 g/dL Normal 11.8-15.4 [facility] Comment on above: Performed By: #### C BC, PTT, CKMB, BMP, CK, BNP, PT, HS TROP #### [address] Lymphocytes (Bld) [#/Vol] 2.3 10*3/uL Normal 1.00-4.8 [facility] Comment on above: Performed By: #### C BC, PTT, CKMB, BMP, CK, BNP, PT, HS TROP #### [address] Lymphocytes/100 WBC (Bld) 37.1 % Normal . [facility] Comment on above: Performed By: #### C BC, PTT, CKMB, BMP, CK, BNP, PT, HS TROP #### [address] MCH (RBC) [Entitic mass] 29.5 pg Normal 24.7-34.3 [facility] Comment on above: Performed By: #### C BC, PTT, CKMB, BMP, CK, BNP, PT, HS TROP #### [address] MCV (RBC) [Entitic vol] 89.0 fL Normal 80-100 [facility] Comment on above: Performed By: #### C BC, PTT, CKMB, BMP, CK, BNP, PT, HS TROP #### [address] Mean Corpuscular HGB Conc 33.2 g/dL Normal 32.0-35.0 [facility] Comment on above: Performed By: #### C BC, PTT, CKMB, BMP, CK, BNP, PT, HS TROP #### [address] Monocytes (Bld) [#/Vol] 0.5 10*3/uL Normal 0.0-0.8 [facility] Comment on above: Performed By: #### C BC, PTT, CKMB, BMP, CK, BNP, PT, HS TROP #### [facility] [address] [place] [address] [place] Monocytes/100 WBC (Bld) 8.7 % Normal . [facility] Comment on above: Performed By: #### C BC, PTT, CKMB, BMP, CK, BNP, PT, HS TROP #### [facility] [address] [place] [address] [place] Neutrophils (Bld) [#/Vol] 3.1 10*3/uL Normal 1.8-7.7 [facility] Comment on above: Performed By: #### C BC, PTT, CKMB, BMP, CK, BNP, PT, HS TROP #### [facility] [address] Neutrophils/100 WBC (Bld) 49.8 % Normal . [facility] Comment on above: Performed By: #### C BC, PTT, CKMB, BMP, CK, BNP, PT, HS TROP #### [facility] [address] Nucleated RBC/100 WBC (Bld) [Ratio] 0.0 % Normal 0-0.5 [facility] Comment on above: Performed By: #### C BC, PTT, CKMB, BMP, CK, BNP, PT, HS TROP #### [place] [address] [place] Platelet mean volume (Bld) [Entitic vol] 9.7 fL Normal 6.3-10.7 [facility] Comment on above: Performed By: #### C BC, PTT, CKMB, BMP, CK, BNP, PT, HS TROP #### [facility] [address] [place] [address] [place] Platelets (Bld) [#/Vol] 219 10*3/uL Normal 150-450 [facility] Comment on above: Performed By: #### C BC, PTT, CKMB, BMP, CK, BNP, PT, HS TROP #### [place] [address] [place] RBC (Bld) [#/Vol] 4.13 10*6/uL Normal 3.60-5.00 [facility] Comment on above: Performed By: #### C BC, PTT, CKMB, BMP, CK, BNP, PT, HS TROP #### [facility] [address] WBC (Bld) [#/Vol] 6.3 10*3/uL Normal 4.5-11.0 [facility] Comment on above: Performed By: #### C BC, PTT, CKMB, BMP, CK, BNP, PT, HS TROP #### [facility] [address] Creatine Kinaseon 02-12-2021 CK [Catalytic activity/Vol] 178 U/L Normal 22-269 [facility] Comment on above: Performed By: #### C BC, PTT, CKMB, BMP, CK, BNP, PT, HS TROP #### [facility] [address] Creatinine Kinase MBon 02-12 CK.MB [Mass/Vol] 2.5 ng/mL Normal 0.6-6.3 [facility] Comment on above: Performed By: #### C BC, PTT, CKMB, BMP, CK, BNP, PT, HS TROP #### [address] CKMB Relative Index 1.4 % Normal 0.00-2.50 [facility] Comment on above: Performed By: #### C BC, PTT, CKMB, BMP, CK, BNP, PT, HS TROP #### [facility] [address] Partial Thromboplastin Timeo n 02-12-2021 aPTT Coag (Bld) [Time] 29.3 s Normal 25.1-36.5 [facility] Comment on above: Result Comment: PERF ORMED BY: [place] [address] PATHOLOGIST FURNITURE BUILDER NICANOR BALTAZAR M.D. Performed By: #### C BC, PTT, CKMB, BMP, CK, BNP, PT, HS TROP #### [facility] [address] [place] [address] [place] Prothrombin Time INRon 02-12 INR Coag (PPP) [Relative time] 1.0 {INR} Normal [facility] Comment on above: Result Comment: INR Therapeutic [...] BMP, CK, BNP, PT, HS TROP #### [facility] [address] PT Coag (PPP) [Time] 11.5 s Normal 9.0-12.9 [facility] Comment on above: Performed By: #### C BC, PTT, CKMB, BMP, CK, BNP, PT, HS TROP #### [facility] [address] Troponin I High Sensitivityo n 02-12-2021 Troponin I High Sensitivity 5 pg/mL Normal 0-15 [facility] Comment on above: Result Comment: PERF ORMED BY: [place] [address] PATHOLOGIST FURNITURE BUILDER NICANOR BALTAZAR M.D. Performed By: #### C BC, PTT, CKMB, BMP, CK, BNP, PT, HS TROP #### [place] [address] [place] XR chest 2V*on 02-12-2021 XR chest 2V* [facility] [place] [address] [place] [address] XRay Report Signed Patient: Kassandra Lopez MR#: [id number] : 1965 Acct:[id number] Age/Sex: 55 / F ADM Date: 02/11/21 Loc: ER Room: Type: [facility] Attending Dr: Ordering Provider: Stefan Carolina [...] Reid Graves M.D.02/12/2021 9:18 AM Dictation Location: [place] [address] Transcribed By: [facility] 02/12/21917 Dictated By: Reid Graves DO 02/12/21914 Signed By: 02/12/21917 [facility] ECG 12 lead ECGon 02-11-2021 ECG 12 lead ECG [facility] [place] [place] [address] Electrocardiograph Report Signed Patient: Kassandra Lopez MR#: [id number] : 1965 Acct:[id number] Age/Sex: 55 / F ADM Date: 02/11/21 Loc: ER Room: Type: [facility] ER Attending Dr: Ordering Provider: Stefan Carolina [...] ECGs available Confirmed by Stefan Carolina DO ([id number]) on 02/11/2021 11:41:46 PM Referred By: Electronically Signed By:Stefan Carolina DO Transcribed By: MUS Signed By Stefan Carolina DO 02/11 7844 [facility] Vital Signs Date Time Vital Sign Value Performing Clinician Faci steven 05-26-2022 08:49-0500 Blood Pressure Location Daniel SALMON [facility] 05-26-2022 08:49-0500 Diastolic blood pressure 74 mm[Hg] Daniel SALMON [facility] 05-26-2022 08:49-0500 Heart rate 70 /min Daniel SALMON [facility] 05-26-2022 08:49-0500 Respiratory rate 16 /min Daniel SALMON [facility] 05-26-2022 08:49-0500 Systolic blood pressure 128 mm[Hg] Daniel SALMON [facility] Encounters Encounter Date Encounter Type Care Provider Facility Start: 05-29-2023 ambulatory Daniel SALMON Facili ty:[facility] Start: 04-22-2023 ambulatory [facility] Start: 02-10-2023 ambulatory [facility] Start: 11-26-2022 ambulatory [facility] Start: 10-15-2022 End: 10-15-2022 ambulatory [facility] Start: 10-01-2022 End: 10-01-2022 ambulatory [facility] Start: 08-15-2022 Encounter for genera l adult medical examination without abnormal findings DR SHAI LAU . [facility] Start: 08-14-2022 End: 08-15-[address] SHAI LAU . Facility:[facility] Start: 08-14-2022 End: 08-15-2022 Encounter for general adult medical examination without abnormal findings DR SHAI LAU . Facility:[facility] Start: 08-12-2022 End: 08-13-[address] DANIEL SALMON . Facility:[facility] Start: 06-25-2022 ambulatory [facility] Start: 05-26-2022 End: 05-27-2022 ambulatory Daniel SALMON Facility:[facility] Start: 05-26-2022 End: 05-26-2022 Patient encounter procedure Daniel SALMON [facility] Start: 05-22-2022 End: 05-23-[address] DANIEL SALMON . Facility:[facility] Start: 11-15-2021 End: 11-15-[address] SHAI LAU . Facility:[facility] Start: 11-12-2021 End: 11-12-[address] SHAI LAU . Facility:[facility] Start: 07-02-2021 End: 07-02-2021 Lab Drop off EMERITA Navas NIKI [facility] Start: 07-02-2021 End: 07-02-2021 Patient encounter procedure Toni Carrera Jr. [facility] Procedures Date Procedure Procedure Detail Performing Clinician Start: 11-26-2022 Follow-up visit Follow-up MAX KOWALSKI Start: 03-05-2017 Extracorporeal shock wave lithotripsy of calculus of kidney Toni Carrera Jr. Start: 04-06-2016 Procedure on back Akil Carrera Jr. Start: 04-06-2015 Decompression of med barron nerve Toni Carrera Jr. Start: 04-06-1989 Tonsillectomy Toni de la cruz Jr. Immunizations Immunization Date Immunization Notes Care Provider Fa cilinazario 08-08-2020 SARS-CoV-2 (COVID-19 ) Ad26 vaccine, recombinant Toni Carrera Jr. [facility] 04-14-2021 SARS-CoV-2 (COVID-19 ) Ad26 vaccine, recombinant Toni Carrera [facility] Payers Date Payer Category Payer Unknown [id number] 2019 Unknown [id number] 1965 Unknown [id number] 2.16.8 [id number] 1965 Unknown [id number] 2.16.8 [id number] 1965 Unknown [id number] 2.16.84 [id number] 1965 Unknown [id number] 2.16.84 [id number] 1965 Unknown [id number] 2.16.84 [id number] 1965 Unknown [id number] 2.16.84 [id number] 1965 Unknown [id number] 2.16.84 [id number] 1965 Unknown [id number] 2.16.84 [id number] 1959 Unknown [id number] Social History Date Type Detail Facility Start: 05-13-2021 Tobacco smoking status Never s moked tobacco (finding) [facility] Sex Assigned At Female [facility] Functional Status Date Assessment Result Facility 05-26-2022 Functional Status N/A [facility] Clinical Notes 05-26-2022 to 04-22-2023 Note Date & Type Note Facility 04-22-2023 Note Patient ID: Kassandra Lopez is a 57 y.o. female. Steroid Injections for carpal tunnel syndrome on 04/22/2023 2:14 PM Indications: (Carpal tunnel symptoms) Details: 25 G needle, volar approach Medications: 3 mL lidocaine 10 mg/mL (1 %); 2 mL triamcinolone acetonide 10 mg/mL Outcome: tolerated well, no immediate complications After discussing the treatment options, and the risks and benefits of a corticosteroid injection, verbal consent to proceed was obtained. In the clinic today, the benefits, risks and potential side effects of the injection were discussed, and verbal consent was given. The area just proximal to the left wrist crease was prepped with Betadine. Using a 25-gauge needle, the carpal tunnel was carefully injected with a combination of 2 mL of Kenalog 10 mg/mL and 3 mL of 1% plain lidocaine. The area was wiped clean with alcohol and dressed with a Band-Aid. Instructions were given to be cautious as the hand most likely will be numb for the next couple hours, and to apply ice to the site later today. Procedure, treatment alternatives, risks and benefits explained, specific risks discussed. Consent was given by the patient. Immediately prior to procedure a time out was called to verify the correct patient, procedure, equipment, coding support specialist and site/side marked as required. [facility] 02-10-2023 Note Orthopedic Surgery Subjective 10/01/2022 Carpal [...] disease) Kidney stone Migraines Objective Left Hand: Pkzcikuuad-jdlf-wzzsxu scar from carpal tunnel incision. Thumb: normal A1 winnie and AROM, Index finger: normal A1 winnie and AROM, Long finger: normal A1 winnie and AROM, Ring finger: normal A1 winnie and AROM, and Small finger: normal A1 winnie and AROM Strength: piping supervisor 4+/5, thumb 4+/5, interossei 5/5 Sensation: intact [...] and see her back at that time. [facility] 11-26-2022 Note Attestation signed by Max Kowalski [...] disease) Kidney stone Migraines Objective Left Hand: Glkyrlefqh-sarn-ttzhtq scar from carpal tunnel incision. Thumb: normal A1 winnie and AROM, Index finger: normal A1 winnie and AROM, Long finger: normal A1 winnie and AROM, Ring finger: normal A1 winnie and AROM, and Small finger: normal A1 winnie and AROM Strength: piping supervisor 5/5, thumb 5/5, interossei 5/5 Sensation: intact [...] SHERIFF MD Orthopedic Surgery, PGY-2 Ortho Pager [phone] 11/26/22 3:14 PM [facility] 10-15-2022 Note Attestation signed by Max Kowalski [...] SHERIFF MD Orthopedic Surgery, PGY-2 Ortho Pager [phone] 10/15/22 1:20 PM [facility] 10-01-2022 Note Patient: Guillermina curry Procedure Summary Date: 10/01/22 Room / Location: [facility] OR [address] [place] [address] [facility] OR Anesthesia Start: 0834 Anesthesia Stop: 899 Procedure: CARPAL TUNNEL RELEASE [...] per anesthesia protocol. No notable events documented. [facility] 10-01-2022 Note Patient: Guillermina curry Procedure Information Date/Time: 10/01/22829 Procedure: CARPAL TUNNEL RELEASE (Left: Hand) Location: [facility] OR [address] [place] [address] OR Surgeons: Max Kowalski MD Relevant Problems [...] Plan discussed with attending. Additional Equipment Requests [facility] 06-25-2022 Note Orthopedic Surgery Subjective Chief complaint: Left carpal tunnel Guillermina Lopez is a 57 y.o. year old female presenting for follow-up of left [facility] carpal tunnel. She has been following [...] finger: normal A1 winnie and AROM Strength: piping supervisor 4/5, thumb 4/5, interossei 5/5. Sensation: intact [...] be an additional personal documentation from me. [facility] 05-26-2022 Hospital Discharge instructions Patient Education 05/26/2022 [...] include: ?Spinach. ?Rhubarb. ?Beets. ?Potato chips and italian fries. ?Nuts. If you regularly take a diuretic medicine, make sure to eat at least 1 2 fruits or vegetables high in potassium each day. These include: ?Avocado. ?Banana. ?Tilden, prune, carrot, or tomato juice. ?Baked potato. [...] Casseroles. Pizza. Lasagna. Frozen meals. Potato chips. Jamaican fries. Summary You can reduce your risk [...] 07/18/2011 Document Revised: 07/13/2019 Document Reviewed: 03/03/2017 [employer] Patient Education 2020 [place]. Follow Up Care 05/13/2021 09:33:00 With:Daniel SALMON MD, URL Address: [facility] [address], [place] [address]- When: Unknown [facility] Evaluation + Plan note Future Appointments Appointment Date:05/26/2022 08:45:00 AM Scheduled Provider:Daniel SALMON MD Location:[facility] Appointment Type:URO Office Visit [facility] Evaluation + Plan note Future Appointments Appointment Date:05/26/2022 08:45:00 AM Scheduled Provider:Daniel SALMON MD Location:[facility] Appointment Type:URO Office Visit Diagnostic Tests PendingUrine Culture 07/02/21 [facility] Evaluation + Plan note Future Appointments Appointment Date:05/29/2023 08:00:00 AM Scheduled Provider:Daniel SALMON MD Location:[facility] Appointment Type:URO Office Visit [facility] Hospital course Narrative No data available for this section [facility] Hospital Discharge instructions No data available for this section [facility] Progress note No data available for this section [facility] Summary Purpose Family History No Family History Records FoundNo Family History Records FoundNo Family History Records FoundNo Family History Records Found Advance Directives No Advanced Directives Records FoundNo Advanced Directives Records FoundNo Advanced Directives Records FoundNo Advanced Directives Records Found Additional Source Comments INFORMATION SOURCE (unrecogn ized section and content) DATE CREATED AUTHOR 05/29/2021 [facility] DATE CREATED AUTHOR AUTHOR'S ORGANIZ ATION 08/18/2022 [facility] DATE CREATED AUTHOR AUTHOR'S ORGANIZ ATION 08/21/2022 [facility] DATE CREATED AUTHOR AUTHOR'S ORGANIZ ATION 04/26/2023 [facility] Patient Care team informatio n (unrecognized section and content) Personnel Name: Shai Lau MD Address: Address: [address] [place] [address] FOR RECORDS PERTAINING TO PATIENTS WHO ARE [...] BE BASED ON THE PRIMARY CLINICAL RECORDS. [facility] [employer] [facility]. provides no warranty or guarantee of the accuracy or completeness of information in this document.
--- NOTE | 2023-05-19 11:44 | PM.PRESUREVA ---
History of Present Illness History of Present Illness Chief complaint: Plantar fascial fibromytosis, left ankle contractu Narrative: Patient presents for preadmission testing. Please see HPI from Dr. Emerson dated 05/13/2023. Review of Systems ROS Narrative Please see ROS from Dr. Emerson dated 05/13/2023. [facility] Medical History (Updated 05/19/23 @ 11:44 by Cathi Rios NP) Plantar fascial fibromatosis ?M72.2 - Plantar fascial fibromatosis (ICD-10) Contracture, left ankle ?M24.572 - Contracture, left ankle (ICD-10) Vertigo ?R42 - Dizziness and giddiness (ICD-10) Chronic cystitis ?N30.20 - Other chronic cystitis without hematuria (ICD-10) Chronic kidney disease ?N18.9 - Chronic kidney disease, unspecified (ICD-10) Urinary tract infection ?N39.0 - Urinary tract infection, site not specified (ICD-10) COVID-19 (04/16/23) ?U07.1 - COVID-19 (ICD-10) Migraine ?G43.909 - Migraine, unspecified, not intractable, without status migrainosus (ICD-10) S/P extracorporeal shock wave therapy ?Z98.890 - Other specified postprocedural states (ICD-10) Kidney stones ?N20.0 - Calculus of kidney (ICD-10) Seasonal allergies ?J30.2 - Other seasonal allergic rhinitis (ICD-10) GERD (gastroesophageal reflux disease) ?K21.9 - Gastro-esophageal reflux disease without esophagitis (ICD-10) Surgical History (Updated 05/19/23 @ 11:30 by Cathi Rios NP) History of endometrial ablation ?Z98.890 - Other specified postprocedural states (ICD-10) History of spinal surgery ?Z98.890 - Other specified postprocedural states (ICD-10) History of tonsillectomy ?Z90.89 - Acquired absence of other organs (ICD-10) H/O hand surgery ?Z98.890 - Other specified postprocedural states (ICD-10) History of foot surgery ?Z98.890 - Other specified postprocedural states (ICD-10) History of carpal tunnel release ?Z98.890 - Other specified postprocedural states (ICD-10) Family History (Updated 05/19/23 @ 11:30 by Cathi Rios NP) Other Family history of diabetes mellitus Family history of hypertension Family history of myocardial infarction Social History (Updated 05/19/23 @ 11:20 by Cathi Rios NP) Within the past year, how often did you have a drink containing alcohol: 2-4 times a month Smoking status: Never smoker Non-prescribed substance use: denies use 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 Highest level of school completed/degree received: high school graduate Meds Home Medications and Allergies Home Medications Medication Instructions Recorded Confirmed Type cetirizine 10 mg tablet (Zyrtec) 10 mg PO DAILY PRN allergy symptoms 05/19/23 05/19/23 History lansoprazole 30 mg capsule,delayed 30 mg PO DAILY 05/19/23 05/19/23 History release multivitamin (Daily Multi-Vitamin 1 tab PO DAILY 05/19/23 05/19/23 History tablet) Allergies Allergy/AdvReac Type Severity Reaction Status Date / Time levofloxacin [From Levaquin] Allergy Muscle Pain Verified 05/19/23 11:17 phenobarbital Allergy Unknown Verified 05/19/23 11:17 Sulfa (Sulfonamide Allergy Rash Verified 05/19/23 11:17 Antibiotics) Exam Narrative Exam Narrative: Constitutional: Awake, alert, comfortable, well-appearing, nontoxic, interactive, vital signs as charted Head: Normocephalic, atraumatic Neck: Supple, normal appearance, normal range of motion, no meningeal signs, no lymphadenopathy Respiratory: No respiratory distress, breath sounds clear Cardiovascular: Regular rate and rhythm, strong and regular heart tones Psychiatric: Oriented ?3, normal affect Assessment and Plan Assessment and Plan (1) Plantar fascial fibromatosis: (2) Contracture, left ankle: Plan Left endoscopic plantar fasciotomy and gastrocnemius recession scheduled with Dr. Emerson 05/28/2023.
[2023-05-19 12:05] LABS: Basophils Absolute Auto 0.1 10^3/uL (0.0-0.1); Basophils Percent Auto 1.4 % (0.2-2.0); Eosinophils Absolute Auto 0.2 10^3/uL (0.0-0.7); Eosinophils Percent Auto 4.1 % (0.9-7.0); Hematocrit 38.6 % (36.0-48.0); Hemoglobin 12.1 g/dL (12.0-16.0); Immature Granulocytes Abs Auto 0.01 10^3/uL (0.00-0.03); Immature Granulocytes Pct Auto 0.2 % (0.0-0.5); Lymphocytes Absolute Auto 2.2 10^3/uL (1.2-3.8); Lymphocytes Percent Auto 37.9 % (20.5-60.0); Mean Corpuscular HGB Conc 31.3 g/dL (29.9-35.2); Mean Corpuscular Hemoglobin 28.9 pg (26.7-34.0); Mean Corpuscular Volume 92.3 fL (81.0-99.0); Mean Platelet Volume 11.4 fL (9.5-13.5); Monocytes Absolute Auto 0.5 10^3/uL (0.3-0.8); Monocytes Percent Auto 8.5 % (1.7-12.0); Neutrophils Absolute Auto 2.7 10^3/uL (1.4-6.5); Neutrophils Percent Auto 47.9 % (43.0-75.0); Platelet Count 221 10^3/uL (150-450); Red Blood Count 4.18 10^6/uL (4.20-5.40); Red Cell Distribution Width 13.4 % (11.0-15.0); White Blood Count 5.7 10^3/uL (4.0-11.0)
[2023-05-19 13:47] LABS: Anion Gap 10.2; BUN Creatinine Ratio 23.1; Carbon Dioxide 28.5 mmol/L (21.0-32.0); Chloride 109 mmol/L (98-107); Estimated GFR (African America >60 (>=60); Estimated GFR (Non-African Ame >60 (>=60); Glucose 96 mg/dL (74-106); Potassium 3.7 mmol/L (3.5-5.1); Sodium 144 mmol/L (136-145)
== END 2023-05-19 11:07 | disposition home or self-care (01) ==
LOC: PST 11:07
PROVIDERS: PCP Family Medicine; Visit Provider Podiatrist Foot & Ankle Surgery
DX: Z01.810 Encounter for preprocedural cardiovascular examination (principal); Z01.812 Encounter for preprocedural laboratory examination; Z01.818 Encounter for other preprocedural examination; M72.2 Plantar fascial fibromatosis; M24.572 Contracture, left ankle
CPT/HCPCS: 80048; 85025; 93005; G0463

== ENCOUNTER 2023-06-04 09:45 | Day surgery (SDC) | payer OTHER, SELFPAY ==
[2023-05-19 11:42] VITALS: BP 136/94; PULSE 75; RESP 18; TEMP 36.2; O2SAT 98; BMI 39.3
[2023-06-04] VITALS (9 sets, daily range): BP systolic 142–171; BP diastolic 64–92; PULSE 50–73; RESP 12–20; TEMP 36.6; O2SAT 94–97; BMI 39.4
[2023-06-04 10:10] LABS: Glucometer 98 mg/dL (74-106)
[2023-06-04 10:30] LABS: HCG Qualitative NEGATIVE (NEGATIVE)
[2023-06-04] MEDS: LACTATED RINGER'S SOLUTION 1,000 ML 50 ML IV (10:32)
[2023-06-04] MEDS: CEFAZOLIN SODIUM/DEXTROSE,ISO 2 GM/50 ML PIGGYBACK IV (11:02)
[2023-06-04] MEDS: BETAMETHASONE ACE/BETAMETHASONE SOD PHOS 30 MG/5 ML 6 MG INJ ×2 (12:18→12:23)
[2023-06-04] MEDS: BUPIVACAINE HCL 0.5% PF 50 MG/10 ML VIAL INJ (12:18)
--- NOTE | 2023-06-04 12:22 | PM.ORONB ---
Brief Operative Note Date of procedure: 06/04/23 Pre-op diagnosis: left plantar fasciitis and equinus Post-op diagnosis: same as pre-op Procedure: PROCEDURES PERFORMED: left endoscopic plantar fasciotomy and gastrocnemius recession INTRAOPERATIVE FINDINGS: plantar fascia was thickened and scarred consistent with chronic plantar fasciitis. Ankle joint dorsiflexion limited to neutral with the knee extended PROCEDURE IN DETAIL: Patient was identified in pre op and consent was reviewed. Correct side and site were identified and marked. Pre-op antibiotics were started. Patient was brought to OR suite and place on table in a supine position. General anesthesia was administered. Tourniquet applied. Operative extremity was prepped and draped in usual sterile fashion. Formal time-out was performed and the foot/ankle were exsanguinated and tourniquet inflated. A longitudinal incision over the medial aspect of the calf two finger breadths posterior to the posterior aspect of tibia was performed. Combination sharp and blunt dissection with all bleeders being coagulated gained access to the gastrocnemius aponeurosis. Once the aponeurosis was isolated a speculum was inserted from the medial to lateral position just superficial to the aponeurosis. The speculum allowed full visualization of the aponeurosis and the foot was held in maximal dorsiflexed position. A fifteen blade was used to transversely incise the gastrocnemius fascia to two separate location (one proximal and one distal) followed by release of the soleus fascia. 10 degrees of ankle joint dorsiflexion was obtained. The area was flushed with copious sterile saline and skin was closed in layers. Stab incision over the medial aspect of the in-step at the glabrous skin junction was used followed by blunt dissection and the medial band of the plantar fascia was identified. Trochar and cannula were then placed medial to lateral. A lateral stab incision was made to allow passage of the trochar and cannula. Camera was inserted into the lateral portal and a hook blade was placed into the medial portal. 50% of the plantar fascia was released and healthy muscle was noted. The site was flushed with saline and instrumentation was removed. Closure with nylon suture was then undertaken. A dry sterile dressing was placed followed by CAM boot. Patient tolerated the procedure and anesthesia well and was transferred to the recovery room with vital signs stable and brisk capillary refill to the toes. POSTOPERATIVE PLAN:Discharge home under family's care Post op instructions provided verbally and written prescription(s) were placed in chart Weightbearing as tolerated in cam boot for three weeks Patient should sleep in cam boot or night splint Follow-up in 1-3 weeks Anesthesia: General-LMA Surgeon: Alessandro Emerson Manager Flight Operations: Donald Michelle Estimated blood loss (mL): 10 Pathology: none sent Condition: stable Disposition: PACU
[2023-06-04 12:38] LABS: Glucometer 95 mg/dL (74-106)
[2023-06-04] MEDS: ONDANSETRON 4 MG RAPDIS TABLET SL (12:53)
[2023-06-04] MEDS: OXYCODONE HCL/ACETAMINOPHEN 5MG/325MG 1 TAB PO (12:56)
== END 2023-06-04 14:02 | disposition home or self-care (01) ==
PROVIDERS: PCP Family Medicine; Visit Provider Podiatrist Foot & Ankle Surgery
PROC: (CPT 1464; principal; 2023-06-04 10:45)
DX: M72.2 Plantar fascial fibromatosis (principal); M24.572 Contracture, left ankle; N18.9 Chronic kidney disease, unspecified; Z86.16 Personal history of COVID-19; Z87.440 Personal history of urinary (tract) infections; Z87.442 Personal history of urinary calculi; K21.9 Gastro-esophageal reflux disease without esophagitis; E66.3 Overweight; Z68.36 Body mass index [BMI] 36.0-36.9, adult
CPT/HCPCS: 27687; 29893; 36415; 82948; 84703; J0702; J1094; J2704

== ENCOUNTER 2023-06-29 13:31 | Outpatient (OUT) | payer OTHER, SELFPAY ==
--- NOTE | 2023-06-29 13:37 | US_ITS ---
[place] [id number] Patient Name: KASSANDRA LOPEZ MRN: [id number] date: 1965 Sex: F Assigned Patient Location: [place] Current Patient Location: .[facility] Accession/Order Number: [id number] Exam Date: 06/29/2023 13:40 Report Date: 06/29/2023 14:12 At the request of: POLY GONSALES Procedure: US venous doppler LE LT EXAM: US venous doppler LE LT HISTORY: leg swelling R22.42 COMPARISON: None. TECHNIQUE: Grayscale, color and Doppler FINDINGS: Region: Left leg Thrombus: Echogenic thrombus identified in the popliteal vein extending from the mid posterior tibial vein Flow: Minimal flow in the popliteal vein. Compressibility: Noncompressibility corresponding to thrombus Augmentation: Normal augmentation corresponding to thrombus US/US venous doppler LE LT IMPRESSION: Nearly occlusive deep vein thrombus in the popliteal vein extending from the mid posterior tibial vein Electronically authenticated by: CONSTANCE HERNANDEZ Date: 06/29/2023 14:12
--- OUTSIDE RECORDS SUMMARY | 2023-06-29 13:45 | XMS_ITS | CCD ---
Author Organization [facility] Care Team Providers Care Crotch Piece Baster Name Role Phone Shai Lau Primary Care [...] DR DRUMMOND Consulting Unavailable SALMON ., DR DANIEL Moyaitting Unavailable HOY ., DR GIBBONS Primary Care [...] HOY ., DR GIBBONS Primary Care Unavailable INDIRAE, MAX Admitting Unavailable SKIE, MAX Attending Unavailable SKIE, MAX Attending Unavailable SKIE, MAX Attending Unavailable SKIE, MAX Attending Unavailable SKIE, MAX Attending Unavailable SKIE, MAX Attending Unavailable Allergies Allergy Classification Reported Allergen(s) Allergy Type Date of Onset Reaction(s) Facility (5 sources) levoFLOXacin; Translations: [levofloxacin] Drug Allergy 02-22-20 16 .. [facility] (5 sources) PHENobarbital; Translations: [phenobarbital] Drug Allergy 07-07-19 15 .. [facility] (4 sources) Sulfonamides (Antibiotic); Translations: [sulfa drugs] Drug allergy RASH [facility] (1 source) benzoin resin Drug Allergy 08-21-19 16 [facility] (1 source) levoFLOXacin Drug Allergy 08-21-19 16 [facility] (1 source) Sulfonamides (Antibiotic) Drug allergy (disorder) 08-21-19 16 [facility] (1 source) Sulfamethoxazole / Trimethoprim; Translations: [SULFAMETHOXAZOLE-TR IMETHOPRIM] Drug Allergy 07-07-19 15 [facility] (1 source) Sulfonamides (Antibiotic); Translations: [SULFA (SULFONAMIDE ANTIBIOTICS)] Propensity to adverse reactions to drug (disorder) 12-20-19 15 [facility] Medications Current Medications Medication Drug [...] day(s), # 14 cap(s), Refills(s) 0, Pharmacy: [facility]/pharmacy #[id number], 161, cm, 05/13/21 9:04:00 EST, Height/Length Dosing, 91.5, kg, 05/13/21 9:04:00 EST, Weight Dosing Start Date: 07/02/21 Stop Date: 07/09/21 Status: Ordered fluconazole 150 mg oral tablet (2 sources) Azole Antifungal Start: 07-02-2021 End: 07-09-2021 Diflucan 150 mg Tab See Instructions, 1 tab po q72 hrs x 3 doses, then dc, # 3 tab(s), Refills(s) 0, Pharmacy: [facility]/pharmacy #[id number], 161, cm, 05/13/21 9:04:00 EST, Height/Length [...] Interpretation Reference Range Facility Follow-Upon 04-22-2023 Follow-Up [id number] Kassandra Lopez 1965 Date Provider Department Center 04/22/2023 [facility] Family History Family history unknown: Yes Level of Service:62540 [place] OFFICE/OUTPT VISIT,PROCEDURE ONLY Reason for Visit and Comments: Follow-up [243077] - Constant tingling - thumb goes numb when driving or holding something for a bit and the numbness also goes into the middle finger as well. Pain [136] - Constant tingling - thumb goes numb when driving or holding something for a bit and the numbness also goes into the middle finger as well. [facility] Follow-Upon 02-10-2023 Follow-Up [id number] Kassandra Lopez 1965 Date Provider Department Center 02/10/2023 [facility] Family History Family history unknown: Yes Level of Service:28464 [place] OFFICE/OUTPATIENT ESTABLISHED LOW MDM 20-29 MIN Reason for Visit and Comments: Follow-up [332747] [facility] Follow-Upon 11-26-2022 Follow-Up [id number] Kassandra Lopez 1965 Date Provider Department Center 11/26/2022 [facility] Family History Family history unknown: Yes Level of Service:38565 [place] OFFICE/OUTPATIENT ESTABLISHED LOW MDM 20-29 MIN Reason for Visit and Comments: Pain [136] Follow-up [938828] [facility] Office Visiton 10-15-2022 Follow-up visit [id number] Kassandra Lopez 1965 F Date Provider Department Center 10/15/2022 [place] Family History Family history unknown: Yes Level of Service:09603 [place] POSTOP FOLLOW UP VISIT RELATED TO ORIGINAL PX (GC) Reason for Visit and Comments: Post-op [483] Follow-up [196120] [facility] 36on 10-02-2022 36 I spoke to the patient to see how she is doing after her recent surgery with Dr Kowalski. Ms Lopez stated she is doing well and that her pain is manageable with medications. She has a follow up with Dr Kowalski on October 15 at 120. She had no other questions or concerns. [facility] HPon 10-01-2022 HP History Of Present Illness [...] Active Problems: Hyperlipidemia L C TR Normal [facility] OPNOTEon 10-01-2022 OPNOTE Operative Note Patient: Guillermina Lopez Date of Surgery: 10/01/2022 : 1965 Pre-operative Diagnosis: Carpal Tunnel Syndrome left Hand Post-operative Diagnosis: same Operation: Carpal Tunnel Release, left (33031) Surgeon: Max Kowalski MD Piece Presser: Drew Chacon MD Staff: Scrap Shear Operator: Mayte Chery RN Scrub Person: Cayetano Ace [...] PACU Condition: stable Max Kowalski MD Normal [facility] POCT GLUCOSE METER UNSOLICIT ED RESULTSon 10-01-2022 Glucose [Mass/Vol] 91 mg/dL Normal 70-105 [facility] Comment on above: Order Comment: Waive d Testing in the ED is performed under the ED CLIA certificate #[id number]. Result Comment: epaw low Performed By: #### L [id number] ####[facility] ([facility])[address] [place] [address] [id number] 09-24-2022 [id number] NPO AFTER MIDNIGHT. MUST HAVE A METALSMITH APPRENTICE TO TAKE YOU HOME AND SOMEONE TO STAY FOR 24 HOURS AFTER SURGERY. NO JEWELRY OR VALUABLES. HOLD THE MEDS WE SPOKE ABOUT: VITAMINS STARTING 09-27. TAKE THE MEDS WE SPOKE ABOUT WITH A SIP OF WATER DOS: PREVACID, ADIPEX. BRING INSURANCE CARD AND PHOTO ID AND MED LIST. Normal [facility] CITRATE URINE 24HRon 023 Citric Acid, U, 24hr 363 mg/24 hr Normal 320-1240 [facility] Comment on above: Result Comment: This test was developed and its performance characteristics determined by [facility]. It has not been cleared or approved by the Food and Drug Administration. Performed By: #### C ITRATU #### [facility] [address] [place] [address] Dr. Prabhu Lopez Citric Acid, Urine 338 mg/L Normal Undefined [facility] Comment on above: Performed By: #### C ITRATU #### [facility] [address] [address] [address] Prabhu Lopez OXALATE 24HR URINEon 023 Oxalates, Urine 15 mg/L Normal Undefined [facility] Comment on above: Performed By: #### O X24HR #### [facility] [address] [address] [address] Prabhu Lopez Oxalates, Urine 24hr 16 mg/24 hr Normal 4-31 [facility] Comment on above: Performed By: #### O X24HR #### [facility] [address] [place] [address] Dr. Prabhu Lopez Lab Reportson 08-17-2022 Lab Reports [id number] #1.00CD:127 Normal [facility] Lab Reports [id number] #1.00CD:127 Normal [facility] Lab Reports [id number] #1.00CD:127 Normal [facility] MAGNESIUM 24HR URINEon 08-15 Magnesium 24hr Urine 94.6 mg/24 hr Normal 12.0-293.0 [facility] Comment on above: Performed By: #### U JESI, BMP #### [facility] [address] [place] [address] Dr. Prabhu Lopez Magnesium UR 8.8 mg/dL Normal Not Estab. [facility] Comment on above: Performed By: #### U JESI, BMP #### [facility] [address] [place] [address] Dr. Prabhu Lopez PHOSPHORUS 24HR URINEon 08-04 Phosphorus, Urine 48.2 mg/dL Normal Not Estab. [facility] Comment on above: Performed By: #### P HOS 24 #### [facility] [address] [place] [address] Dr. Prabhu Lopez Phosphorus, Urine 24hr 518 mg/24 hr Normal 261-1078 [facility] Comment on above: Performed By: #### P HOS 24 #### [facility] [address] [place] [address] Dr. Prabhu Lopez URIC ACID 24 HR URINEon 08-04 Uric Acid, Urine 29.6 mg/dL Normal Not Estab. [facility] Comment on above: Performed By: #### U JESI, BMP #### [facility] [address] [place] [address] Dr. Prabhu Lopez Uric Acid, Urine 24hr 318.2 mg/24 hr Normal 173.7-902.1 [facility] Comment on above: Performed By: #### U JESI, BMP #### [facility] [address] [place] [address] Dr. Prabhu Lopez CALCIUM 24 HR URINEon 2022 CALC, 24 HR UR 76.3 mg/24 hr Critically low 100.0-300.0 [facility] Comment on above: Performed By: #### C [id number] #### [facility] [address] [place] [address] Dr. Prabhu Lopez UR CALCIUM 7.1 mg/dL Normal 5.1-21.0 [facility] Comment on above: Performed By: #### C ALC24U #### [facility] [address] [place] [address] Dr. Prabhu Lopez UR TOT VOL 1075 ml/24 HR Normal [facility] Comment on above: Performed By: #### C ALC24U #### [facility] [address] [place] [address] Dr. Prabhu Lopez Performed By: #### N A24U, [id number] #### [facility] [address] [place] [address] Dr. Prabhu Lopez CBC AUTO DIFFon 08-14-2022 BASO # 0.1 103/ul Normal 0.0-0.1 [facility] Comment on above: Performed By: #### U JEIS, BMP #### [facility] [address] [place] [address] Dr. Prabhu Lopez Basophils/100 WBC (Bld) 1.3 % Normal 0.2-2.0 [facility] Comment on above: Performed By: #### U JESI, BMP #### [facility] [address] [place] [address] Dr. Prabhu Lopez EO # 0.3 103/ul Normal 0.0-0.7 [facility] Comment on above: Performed By: #### U JESI, BMP #### [facility] [address] [place] [address] Dr. Prabhu Lopez Eosinophils/100 WBC (Bld) 5.2 % Normal 0.9-7.0 [facility] Comment on above: Performed By: #### U JESI, BMP #### [facility] [address] [place] [address] Dr. Prabhu Lopez Erythrocyte distribution width (RBC) [Ratio] 12.9 % Normal 11.0-15.0 [facility] Comment on above: Performed By: #### U JESI, BMP #### [facility] [address] [place] [address] Dr. Prabhu Lopez Hematocrit (Bld) [Volume fraction] 42.7 % Normal 36.0-48.0 [facility] Comment on above: Performed By: #### U JESI, BMP #### [facility] [address] [address] [address] Prabhu Lopez Hemoglobin (Bld) [Mass/Vol] 13.4 g/dL Normal 12.0-16.0 [facility] Comment on above: Performed By: #### U JESI, BMP #### [facility] [address] [address] [address] Prabhu Lopez IG # 0.02 10e3/ul Normal 0.00-0.03 [facility] Comment on above: Performed By: #### U JESI, BMP #### [facility] [address] [place] [address] Dr. Prabhu Lopez IG % 0.4 % Normal 0.0-0.5 [facility] Comment on above: Performed By: #### U JESI, BMP #### [facility] [address] [place] [address] Dr. Prabhu Lopez LYMPH # 2.0 103/ul Normal 1.2-3.8 [facility] Comment on above: Performed By: #### U JESI, BMP #### [facility] [address] [place] [address] Dr. Prabhu Lopez Lymphocytes/100 WBC (Bld) 41.5 % Normal 20.5-60.0 [facility] Comment on above: Performed By: #### U JESI, BMP #### [facility] [address] [place] [address] Dr. Prabhu Lopez MANUAL DIFF REQ NO Normal [facility] Comment on above: Performed By: #### U JESI, BMP #### [facility] [address] [place] [address] Dr. Prabhu Lopez MCH (RBC) [Entitic mass] 28.7 pg Normal 26.7-34.0 [facility] Comment on above: Performed By: #### U JESI, BMP #### [facility] [address] [place] [address] Dr. Prabhu Lopez MCHC (RBC) [Mass/Vol] 31.4 g/dL Normal 29.9-35.2 [facility] Comment on above: Performed By: #### U JESI, BMP #### [facility] [address] [place] [address] Dr. Prabhu Lopez MCV (RBC) [Entitic vol] 91.4 fL Normal 81.0-99.0 [facility] Comment on above: Performed By: #### U JESI, BMP #### [facility] [address] [place] [address] Dr. Prabhu Lopez MONO # 0.4 103/ul Normal 0.3-0.8 [facility] Comment on above: Performed By: #### U JESI, BMP #### [facility] [address] [place] [address] Dr. Prabhu Lopez Monocytes/100 WBC (Bld) 8.3 % Normal 1.7-12.0 [facility] Comment on above: Performed By: #### U JESI, BMP #### [facility] [address] [place] [address] Dr. Prabhu Lopez NEUT # 2.1 103/ul Normal 1.4-6.5 [facility] Comment on above: Performed By: #### U JESI, BMP #### [facility] [address] [place] [address] Dr. Prabhu Lopez Neutrophils/100 WBC (Bld) 43.3 % Normal 43.0-75.0 [facility] Comment on above: Performed By: #### U JESI, BMP #### [facility] [address] [place] [address] Dr. Prabhu Lopez Platelet mean volume (Bld) [Entitic vol] 11.7 fL Normal 9.5-13.5 [facility] Comment on above: Performed By: #### U JESI, BMP #### [facility] [address] [place] [address] Dr. Prabhu Lopez PLT 237 103/ul Normal 150-450 [facility] Comment on above: Performed By: #### U JESI, BMP #### [facility] [address] [place] [address] Dr. Prabhu Lopez RBC 4.67 106/ul Normal 4.20-5.40 [facility] Comment on above: Performed By: #### U JESI, BMP #### [facility] [address] [place] [address] Dr. Prabhu Lopez WBC 4.8 103/ul Normal 4.0-11.0 [facility] Comment on above: Performed By: #### U JESI, BMP #### [facility] [address] [place] [address] Dr. Prabhu Lopez CREA 24 HR URINEon 3 CREA, 24 HR UR 875.48 mg/24 hr Normal 800.00-1,8 00.0 0 [facility] Comment on above: Performed By: #### N A24U, [id number] #### [facility] [address] [place] [address] Dr. Prabhu Lopez URINE CREAT 81.44 mg/dL Normal 20.00-300.00 [facility] Comment on above: Performed By: #### N A24U, [id number] #### [facility] [address] [place] [address] Dr. Prabhu Lopez FREE THYROXINE INDEX T7on FTI 2.34 Normal 1.30-4.50 [facility] Comment on above: Performed By: #### U JESI, BMP #### [facility] [address] [place] [address] Dr. Prabhu Lopez T3U 33.0 % Normal 30.0-39.0 [facility] Comment on above: Performed By: #### U JESI, BMP #### [facility] [address] [place] [address] Dr. Prabhu Lopez T4 [Mass/Vol] 7.10 ug/dL Normal 4.80-13.90 [facility] Comment on above: Performed By: #### U JESI, BMP #### [facility] [address] [place] [address] Dr. Prabhu Lopez GLYCOHEMOGLOBIN A1Con 2022 ADA RECOMMENDATION SEE BELOW Normal [facility] Comment on above: Result Comment: ADA RECOMMENDED LIMIT 4.0 - 6.0 ADA THERAPEUTIC TARGET < 7.0 ACTION SUGGESTED > 7.0 Performed By: #### U JESI, BMP #### [facility] [address] [address] [address] Prabhu Lopez Glucose [Mass/Vol] 123 mg/dL Normal [facility] Comment on above: Performed By: #### U JESI, BMP #### [facility] [address] [address] [address] Prabhu Lopez HbA1c (Bld) [Mass fraction] 5.9 % Normal 4.5-6.2 [facility] Comment on above: Performed By: #### U JESI, BMP #### [facility] [address] [address] [address] Prabhu Lopez LIPID PROFILEon 08-14-2022 CHOL-HDL RATIO NORM SEE BELOW Normal [facility] Comment on above: Result Comment: 3.3 - 4.4 LOW RISK 4.4 - 7.1 AVERAGE RISK 7.1 - 11.0 MODERATE RISK >11.0 HIGH RISK Performed By: #### U JESI, BMP #### [facility] [address] [address] [address] Prabhu Lopez Cholesterol [Mass/Vol] 255 mg/dL Critically high <=200 [facility] Comment on above: Performed By: #### U JESI, BMP #### [facility] [address] [address] [address] Prabhu Lopez Cholesterol in HDL [Mass/Vol] 80 mg/dL Critically high 40-60 [facility] Comment on above: Performed By: #### U JESI, BMP #### [facility] [address] [address] [address] Prabhu Lopez Cholesterol in LDL [Mass/Vol] 156.6 mg/dL Normal [facility] Comment on above: Performed By: #### U JESI, BMP #### [facility] [address] [address] [address] Prabhu Lopez Cholesterol.total/Ch olesterol in HDL [Mass ratio] 3.2 {ratio} Normal [facility] Comment on above: Performed By: #### U JESI, BMP #### [facility] [address] [address] [address] Prabhu Lopez HDL NORMAL > or = 60 mg/dl - LOW CARDIOVASCULAR RISK <40 mg/dl - HIGH CARDIOVASCULAR RISK Normal [facility] Comment on above: Performed By: #### U JESI, BMP #### [facility] [address] [address] [address] Prabhu Lopez LDL CALC NORMAL SEE BELOW Normal [facility] Comment on above: Result Comment: <100 mg/dl OPTIMAL 100 - 129 mg/dl NEAR OR ABOVE OPTIMAL 130 - 159 mg/dl BORDERLINE HIGH 160 - 189 mg/dl HIGH >190 mg/dl VERY HIGH Performed By: #### U JESI, BMP #### [facility] [address] [address] [address] Prabhu Lopez Triglyceride [Mass/Vol] 92 mg/dL Normal <=150 [facility] Comment on above: Performed By: #### U JESI, BMP #### [facility] [address] [address] [address] Prabhu Lopez VLDL CALC 18.4 mg/dL Normal [facility] Comment on above: Performed By: #### U JESI, BMP #### [facility] [address] [place] [address] Dr. Prabhu Lopez PROF 14(COMP METB)on 023 Albumin [Mass/Vol] 3.9 g/dL Normal 3.4-5.0 [facility] Comment on above: Performed By: #### U JESI, BMP #### [facility] [address] [place] [address] Dr. Prabhu Lopez Albumin/Globulin [Mass ratio] 0.8 {ratio} Normal [facility] Comment on above: Performed By: #### U JESI, BMP #### [facility] [address] [address] [address] Prabhu Lopez ALP [Catalytic activity/Vol] 74 U/L Normal 46-116 [facility] Comment on above: Performed By: #### U JESI, BMP #### [facility] [address] [address] [address] Prabhu Lopez ALT [Catalytic activity/Vol] 29 U/L Normal 14-59 [facility] Comment on above: Performed By: #### U JESI, BMP #### [facility] [address] [address] [address] Prabhu Lopez Anion gap [Moles/Vol] 10.9 mmol/L Normal [facility] Comment on above: Performed By: #### U JESI, BMP #### [facility] [address] [address] [address] Prabhu Lopez AST [Catalytic activity/Vol] 22 U/L Normal 15-37 [facility] Comment on above: Performed By: #### U JESI, BMP #### [facility] [address] [address] [address] Prabhu Lopez Bilirubin [Mass/Vol] 0.7 mg/dL Normal 0.2-1.0 [facility] Comment on above: Performed By: #### U JESI, BMP #### [facility] [address] [address] [address] Prabhu Lopez Calcium [Mass/Vol] 8.9 mg/dL Normal 8.5-10.1 [facility] Comment on above: Performed By: #### U JESI, BMP #### [facility] [address] [address] [address] Prabhu Lopez Chloride [Moles/Vol] 106 mmol/L Normal 98-107 [facility] Comment on above: Performed By: #### U JESI, BMP #### [facility] [address] [address] [address] Prabhu Lopez CO2 [Moles/Vol] 30.1 mmol/L Normal 21.0-32.0 [facility] Comment on above: Performed By: #### U JESI, BMP #### [facility] [address] [address] [address] Prabhu Lopez Creatinine [Mass/Vol] 0.94 mg/dL Normal 0.55-1.02 [facility] Comment on above: Performed By: #### U JESI, BMP #### [facility] [address] [address] [address] Prabhu Lopez EGFR-AF SLOVENIAN >60 Normal >=60 [facility] Comment on above: Performed By: #### U JESI, BMP #### [facility] [address] [address] [address] Prabhu Lopez EGFR-NON AF SLOVENIAN >60 Normal >=60 [facility] Comment on above: Performed By: #### U JESI, BMP #### [facility] [address] [address] [address] Prabhu Lopez Globulin (S) [Mass/Vol] 4.8 g/dL Normal [facility] Comment on above: Performed By: #### U JESI, BMP #### [facility] [address] [address] [address] Prabhu Lopez Glucose [Mass/Vol] 96 mg/dL Normal 74-106 [facility] Comment on above: Performed By: #### U JESI, BMP #### [facility] [address] [address] [address] Prabhu Lopez Potassium [Moles/Vol] 4.0 mmol/L Normal 3.5-5.1 [facility] Comment on above: Performed By: #### U JESI, BMP #### [facility] [address] [address] [address] Prabhu Lopez Protein [Mass/Vol] 8.7 g/dL Critically high 6.4-8.2 [facility] Comment on above: Performed By: #### U JESI, BMP #### [facility] [address] [address] [address] Prabhu Lopez Sodium [Moles/Vol] 143 mmol/L Normal 136-145 [facility] Comment on above: Performed By: #### U JESI, BMP #### [facility] [address] [address] [address] Prabhu Lopez Urea nitrogen [Mass/Vol] 13.0 mg/dL Normal 7.0-18.0 [facility] Comment on above: Performed By: #### U JESI, BMP #### [facility] [address] [address] [address] Prabhu Lopez Urea nitrogen/Creatinine [Mass ratio] 13.8 mg/mg Normal [facility] Comment on above: Performed By: #### U JESI, BMP #### [facility] [address] [place] [address] Dr. Prabhu Lopez PTH INTACTon 08-14-2022 PTH, Intact 17 pg/mL Normal 15-65 [facility] Comment on above: Performed By: #### U JESI, BMP #### [facility] [address] [place] [address] Dr. Prabhu Lopez SODIUM 24 HR URINEon 023 NA, 24 HR UR 111 mmol/24 hr Normal 40-220 [facility] Comment on above: Performed By: #### N A24U, [id number] #### [facility] [address] [place] [address] Dr. Prabhu Lopez Sodium (U) [Moles/Vol] 103 mmol/L Critically high 30-90 [facility] Comment on above: Performed By: #### N A24U, [id number] #### [facility] [address] [place] [address] Dr. Prabhu Lopez TSHon 08-14-2022 TSH 2.531 uIU/mL Normal 0.358-3.740 [facility] Comment on above: Performed By: #### U JESI, BMP #### [facility] [address] [place] [address] Dr. Prabhu Lopez PROF CHEM 8 (BAS METB)on Anion gap [Moles/Vol] 8.9 mmol/L Normal [facility] Comment on above: Performed By: #### U JESI, BMP #### [facility] [address] [place] [address] Dr. Prabhu Lopez Calcium [Mass/Vol] 9.3 mg/dL Normal 8.5-10.1 [facility] Comment on above: Performed By: #### U JESI, BMP #### [facility] [address] [place] [address] Dr. Prabhu Lopez Chloride [Moles/Vol] 108 mmol/L Critically high 98-107 [facility] Comment on above: Performed By: #### U JESI, BMP #### [facility] [address] [place] [address] Dr. Prabhu Lopez CO2 [Moles/Vol] 28.5 mmol/L Normal 21.0-32.0 [facility] Comment on above: Performed By: #### U JESI, BMP #### [facility] [address] [address] [address] Prabhu Lopez Creatinine [Mass/Vol] 1.08 mg/dL Critically high 0.55-1.02 [facility] Comment on above: Performed By: #### U JESI, BMP #### [facility] [address] [address] [address] Prabhu Lopez EGFR-AF SLOVENIAN >60 Normal >=60 [facility] Comment on above: Performed By: #### U JESI, BMP #### [facility] [address] [address] [address] Prabhu Lopez EGFR-NON AF SLOVENIAN 52 mL/min/1.73m2 Critically low >=60 [facility] Comment on above: Performed By: #### U JESI, BMP #### [facility] [address] [address] [address] Prabhu Lopez Glucose [Mass/Vol] 94 mg/dL Normal 74-106 [facility] Comment on above: Performed By: #### U JESI, BMP #### [facility] [address] [address] [address] Prabhu Lopez Potassium [Moles/Vol] 3.4 mmol/L Critically low 3.5-5.1 [facility] Comment on above: Performed By: #### U JESI, BMP #### [facility] [address] [address] [address] Prabhu Lopez Sodium [Moles/Vol] 142 mmol/L Normal 136-145 [facility] Comment on above: Performed By: #### U JESI, BMP #### [facility] [address] [address] [address] Prabhu Lopez Urea nitrogen [Mass/Vol] 17.0 mg/dL Normal 7.0-18.0 [facility] Comment on above: Performed By: #### U JESI, BMP #### [facility] [address] [address] [address] Prabhu Lopez Urea nitrogen/Creatinine [Mass ratio] 15.7 mg/mg Normal [facility] Comment on above: Performed By: #### U JESI, BMP #### [facility] [address] [address] [address] Prabhu Lopez URIC ACID SERUMon 08-12-2022 Urate [Mass/Vol] 4.8 mg/dL Normal 2.6-6.0 [facility] Comment on above: Performed By: #### U JESI, BMP #### [facility] [address] [address] [address] Prabhu Lopez 36on 08-04-2022 36 Surgery was approved. I called pt to schedule. Pt did not answer LMOV to return call. Normal [facility] Prep for Procedureon 023 Prep for Procedure [id number] Guillermina Lopez 1965 Provider Department Center 08/04/2022 PATRICIA MAK ORTHO MPORTHO No family history on file [facility] Follow-Upon 06-25-2022 Follow-Up [id number] Guillermina Lopez 1965 Provider Department Center 06/25/2022 MAX MUSTAFA MP ORTHO MPORTHO No family history on file Level of Service:96039 [place] OFFICE/OUTPATIENT ESTABLISHED LOW MDM 20-29 MIN Reason for Visit and Comments: Follow-up [204070] Normal [facility] RAD - MISCon 05-27-2022 RAD - MIS [id number] [facility] Ambulatory Visit Summaryon 0 05-26-2022 Ambulatory Visit Summary KASSANDRA LOPEZ :1965 Visit Date:05/26/2022 Ambulatory Visit Instructions Your Diagnosis Kidney stone Chronic cystitis Female stress incontinence Tests Performed Urnls Dip Stick Auto w/o Microscopy POC 02709 XR Abdomen 1 View -- Results Pending -- Please visit your patient portal for your results or contact your primary care physician. Your Care Team Attending Physician - JEFFREY AVELARDaniel Primary Care Physician - Shai Lau MD This Is Your Medications List Contact prescribing physician if questions or concerns lansoprazole (Prevacid) multivitamin with minerals (Airborne Gummies) multivitamin with minerals (Multivitamin, Therapeutic w/ Minerals) Procedures Performed ESWL - Extracorporeal shockwave lithotripsy for renal calculus (03/05/2017), Procedure on back (2017), Carpal tunnel release (2015), Tonsillectomy (1989). Discharge Vitals Heart Rate (Peripheral) 70 Respiratory Rate 16 Blood Pressure 128/74 Height 161 cm Height 63 in Weight 91 kg Weight 200.2 lb BMI 35.11 What to do next Scheduled Follow-Up Appointments Thursday 8:00 AM EST With: Daniel SALMON MD Where: [facility] Patient Educationon 05-26-19 Patient [...] Rhubarb. ? Beets. ? Potato chips and kazakh fries. ? Nuts. ? If you regularly take a diuretic medicine, make sure to eat at least 1?2 fruits or vegetables high in potassium each day. These include: ? Avocado. ? Banana. ? [place], prune, carrot, or tomato juice. ? Baked [...] Salad dr (more content not included)... Normal [facility] Urology Office/Clinic Noteon 05-26-2022 Urology Office/Clinic Note [...] urinary tract calculi. KUB done 05/22/22 at [facility] shows right nephrolithiasis versus overlying bowel [...] [facility] [address], [place] [address]- Additional Instructions: 1 year with KUB, met [...] Protein Urine Dipstick: Negative (05/26/22 08:54:00) Specific [place]vel Urine Dipstick: 1.025 (05/26/22 08:54:00) Urine Appearance Urine Dipstick: Clear (05/26/22 08:54:00) Urine Color Urine Dipstick: Yellow (05/26/22 08:54:00) pH Urine Dipstick: 5.5 (05/26/22 08:54:00 (more content not included)... Normal [facility] Comment on above: Result Comment: Elec tronically [...] WIL KAYE Date: 2022-05-23 09:40 Normal [facility] Covid-19 PCR (CVDTB)on 11-04 SARS-CoV-2 (COVID-19) RNA TANGELA+probe Ql (Unsp spec) Not detected Normal NOT DETECTED [facility] Comment on above: Result Comment: When diagnostic [...] for this test is supported by the Field Inspector of Health and Human Service's declaration that [...] longer be used). Performed By: #### C VDTB #### [facility] [address] [place] [address] Prabhu Lopez Covid-19 PCR ([facility])on SARS-CoV-2 (COVID-19) RNA TANGELA+probe Ql (Unsp spec) Not detected Normal NOT DETECTED [facility] Comment on above: Result Comment: This test is not yet approved or cleared by the [place] FDA. When there are no FDA-approved or cleared tests available, and other criteria are met, FDA can make tests available under an emergency access mechanism called an Emergency Use Authorization (EUA). The EUA for this test is supported by the [place] of Health and Human Service's (HHS's) declaration [...] SARS-CoV-2. Performed By: #### C VDTB #### [facility] [address] [place] [address] [address] Prabhu Lopez B-Type Natriuretic Peptideon 02-12-2021 Natriuretic peptide B (Bld) [Mass/Vol] 36.0 pg/mL Normal 5-100 [facility] Comment on above: Result Comment: PERF ORMED BY: [facility] [address] [place] [address] PATHOLOGIST CROSSING [employer]MAN NICANOR BALTAZAR M.D. Performed By: #### C BC, PTT, CKMB, BMP, CK, BNP, PT, HS TROP #### [address] Basic Metabolic Panelon 11-0 Calcium [Mass/Vol] 8.9 mg/dL Normal 8.2-10.2 [facility] Comment on above: Performed By: #### C BC, PTT, CKMB, BMP, CK, BNP, PT, HS TROP #### [facility] [address] Chloride [Moles/Vol] 104 mmol/L Normal 95-114 [facility] Comment on above: Performed By: #### C BC, PTT, CKMB, BMP, CK, BNP, PT, HS TROP #### [address] CO2 [Moles/Vol] 24.0 mmol/L Normal 22.0-30.0 [facility] Comment on above: Performed By: #### C BC, PTT, CKMB, BMP, CK, BNP, PT, HS TROP #### [address] Creatinine [Mass/Vol] 1.06 mg/dL High 0.44-1.03 [facility] Comment on above: Performed By: #### C BC, PTT, CKMB, BMP, CK, BNP, PT, HS TROP #### [address] Creatinine Clr Calc Pharmacy 64.[address] [facility] Comment on above: Result Comment: PERF ORMED BY: [place] [address] PATHOLOGIST [employer] NICANOR BALTAZAR M.D. Performed By: #### C BC, PTT, CKMB, BMP, CK, BNP, PT, HS TROP #### [address] Estimated GFR ( Najma > 60 Normal [facility] Comment on above: Result Comment: GFR estimated reference range: According to KDOQI guidelines, <60 ml/min/1.73m2 is sufficient to diagnose a patient with chronic kidney disease. Performed By: #### C BC, PTT, CKMB, BMP, CK, BNP, PT, HS TROP #### [facility] [address] Estimated GFR (Non- Am 54 Normal [facility] Comment on above: Performed By: #### C BC, PTT, CKMB, BMP, CK, BNP, PT, HS TROP #### [address] Glucose [Mass/Vol] 106 mg/dL High 70-100 [facility] Comment on above: Result Comment: [place] Glucose Reference Range is dependent on time and content of last meal. Glucose of more than 200 mg/dL in a nonstressed, ambulatory subject supports the diagnosis of Diabetes Mellitus. ADA recommended reference range Performed By: #### C BC, PTT, CKMB, BMP, CK, BNP, PT, HS TROP #### [address] Potassium [Moles/Vol] 3.3 mmol/L Low 3.5-5.1 [facility] Comment on above: Performed By: #### C BC, PTT, CKMB, BMP, CK, BNP, PT, HS TROP #### [address] Sodium [Moles/Vol] 138 mmol/L Normal 136-146 [facility] Comment on above: Performed By: #### C BC, PTT, CKMB, BMP, CK, BNP, PT, HS TROP #### [place] [address] [place] Urea nitrogen [Mass/Vol] 11 mg/dL Normal 9-23 [facility] Comment on above: Performed By: #### C BC, PTT, CKMB, BMP, CK, BNP, PT, HS TROP #### [address] Complete Blood Count Auto Di ffon 02-12-2021 Basophils (Bld) [#/Vol] 0.1 10*3/uL Normal 0.0-0.2 [facility] Comment on above: Result Comment: PERF ORMED BY: [place] [address] PATHOLOGIST CR[employer]ING [employer] NICANOR BALTAZAR M.D. Performed By: #### C BC, PTT, CKMB, BMP, CK, BNP, PT, HS TROP #### [address] Basophils/100 WBC (Bld) 1.2 % Normal . [facility] Comment on above: Performed By: #### C BC, PTT, CKMB, BMP, CK, BNP, PT, HS TROP #### [address] Eosinophils (Bld) [#/Vol] 0.2 10*3/uL Normal 0.0-0.45 [facility] Comment on above: Performed By: #### C BC, PTT, CKMB, BMP, CK, BNP, PT, HS TROP #### [address] Eosinophils/100 WBC (Bld) 3.2 % Normal . [facility] Comment on above: Performed By: #### C BC, PTT, CKMB, BMP, CK, BNP, PT, HS TROP #### [address] Erythrocyte distribution width (RBC) [Ratio] 13.5 % Normal 11.9-15.3 [facility] Comment on above: Performed By: #### C BC, PTT, CKMB, BMP, CK, BNP, PT, HS TROP #### [address] Hematocrit (Bld) [Volume fraction] 36.8 % Normal 34.0-46.4 [facility] Comment on above: Performed By: #### C BC, PTT, CKMB, BMP, CK, BNP, PT, HS TROP #### [address] Hemoglobin (Bld) [Mass/Vol] 12.2 g/dL Normal 11.8-15.4 [facility] Comment on above: Performed By: #### C BC, PTT, CKMB, BMP, CK, BNP, PT, HS TROP #### [address] Lymphocytes (Bld) [#/Vol] 2.3 10*3/uL Normal 1.00-4.8 [facility] Comment on above: Performed By: #### C BC, PTT, CKMB, BMP, CK, BNP, PT, HS TROP #### [address] Lymphocytes/100 WBC (Bld) 37.1 % Normal . [facility] Comment on above: Performed By: #### C BC, PTT, CKMB, BMP, CK, BNP, PT, HS TROP #### [address] MCH (RBC) [Entitic mass] 29.5 pg Normal 24.7-34.3 [facility] Comment on above: Performed By: #### C BC, PTT, CKMB, BMP, CK, BNP, PT, HS TROP #### [address] MCV (RBC) [Entitic vol] 89.0 fL Normal 80-100 [facility] Comment on above: Performed By: #### C BC, PTT, CKMB, BMP, CK, BNP, PT, HS TROP #### [address] Mean Corpuscular HGB Conc 33.2 g/dL Normal 32.0-35.0 [facility] Comment on above: Performed By: #### C BC, PTT, CKMB, BMP, CK, BNP, PT, HS TROP #### [address] Monocytes (Bld) [#/Vol] 0.5 10*3/uL Normal 0.0-0.8 [facility] Comment on above: Performed By: #### C BC, PTT, CKMB, BMP, CK, BNP, PT, HS TROP #### [facility] [address] Monocytes/100 WBC (Bld) 8.7 % Normal . [facility] Comment on above: Performed By: #### C BC, PTT, CKMB, BMP, CK, BNP, PT, HS TROP #### [facility] [address] Neutrophils (Bld) [#/Vol] 3.1 10*3/uL Normal 1.8-7.7 [facility] Comment on above: Performed By: #### C BC, PTT, CKMB, BMP, CK, BNP, PT, HS TROP #### [facility] [address] Neutrophils/100 WBC (Bld) 49.8 % Normal . [facility] Comment on above: Performed By: #### C BC, PTT, CKMB, BMP, CK, BNP, PT, HS TROP #### [facility] [address] Nucleated RBC/100 WBC (Bld) [Ratio] 0.0 % Normal 0-0.5 [facility] Comment on above: Performed By: #### C BC, PTT, CKMB, BMP, CK, BNP, PT, HS TROP #### [facility] [address] Platelet mean volume (Bld) [Entitic vol] 9.7 fL Normal 6.3-10.7 [facility] Comment on above: Performed By: #### C BC, PTT, CKMB, BMP, CK, BNP, PT, HS TROP #### [facility] [address] [place] [address] [place] Platelets (Bld) [#/Vol] 219 10*3/uL Normal 150-450 [facility] Comment on above: Performed By: #### C BC, PTT, CKMB, BMP, CK, BNP, PT, HS TROP #### [facility] [address] [place] [address] [place] RBC (Bld) [#/Vol] 4.13 10*6/uL Normal 3.60-5.00 [facility] Comment on above: Performed By: #### C BC, PTT, CKMB, BMP, CK, BNP, PT, HS TROP #### [address] WBC (Bld) [#/Vol] 6.3 10*3/uL Normal 4.5-11.0 [facility] Comment on above: Performed By: #### C BC, PTT, CKMB, BMP, CK, BNP, PT, HS TROP #### [address] Creatine Kinaseon 02-12-2021 CK [Catalytic activity/Vol] 178 U/L Normal 22-269 [facility] Comment on above: Performed By: #### C BC, PTT, CKMB, BMP, CK, BNP, PT, HS TROP #### [address] Creatinine Kinase MBon 02-12 CK.MB [Mass/Vol] 2.5 ng/mL Normal 0.6-6.3 [facility] Comment on above: Performed By: #### C BC, PTT, CKMB, BMP, CK, BNP, PT, HS TROP #### [address] CKMB Relative Index 1.4 % Normal 0.00-2.50 [facility] Comment on above: Performed By: #### C BC, PTT, CKMB, BMP, CK, BNP, PT, HS TROP #### [address] Partial Thromboplastin Timeo n 02-12-2021 aPTT Coag (Bld) [Time] 29.3 s Normal 25.1-36.5 [facility] Comment on above: Result Comment: PERF ORMED BY: [place] [address] PATHOLOGIST [employer] NICANOR BALTAZAR M.D. Performed By: #### C BC, PTT, CKMB, BMP, CK, BNP, PT, HS TROP #### [id number] [facility] Prothrombin Time INRon 02-12 INR Coag (PPP) [Relative time] 1.0 {INR} Normal [facility] Comment on above: Result Comment: INR [...] BMP, CK, BNP, PT, HS TROP #### [address] [place] [id number] [facility] PT Coag (PPP) [Time] 11.5 s Normal 9.0-12.9 [facility] Comment on above: Performed By: #### C BC, PTT, CKMB, BMP, CK, BNP, PT, HS TROP #### [address] Troponin I High Sensitivityo n 02-12-2021 Troponin I High Sensitivity 5 pg/mL Normal 0-15 [facility] Comment on above: Result Comment: PERF ORMED BY: [place] [address] PATHOLOGIST CR[employer] NICANOR BALTAZAR M.D. Performed By: #### C BC, PTT, CKMB, BMP, CK, BNP, PT, HS TROP #### [address] XR chest 2V*on 02-12-2021 XR chest 2V* [facility] [place] [address] [place] [address] XRay Report Signed Patient: Kassandra Lopez MR#: [id number] : 1965 Acct:[id number] Age/Sex: 55 / F ADM Date: 02/11/21 Loc: ER Room: Type: [facility] ER Attending Dr: Ordering Provider: Stefan [...] Reid Graves M.D.02/12/2021 9:18 AM Dictation Location: [place] [address] Transcribed By: [facility] 02/12/21917 Dictated By: Reid Graves DO 02/12/21914 Signed By: 02/12/[address] [facility] ECG 12 lead ECGon 02-11-2021 ECG 12 lead ECG [facility] [place] [address] Electrocardiograph Report Signed Patient: Kassandra Lopez MR#: [id number] : 1965 Acct:[id number] Age/Sex: 55 / F ADM Date: 02/11/21 Loc: ER Room: Type: [facility] ER Attending Dr: Ordering Provider: Stefan Carolina [...] ECGs available Confirmed by Stefan Carolina DO ([id number]) on 02/11/2021 11:41:46 PM Referred By: Electronically Signed By:Stefan Carolina DO Transcribed By: MUS Signed By Stefan Carolina DO 02/[address] [facility] Vital Signs Date Time Vital Sign Value Performing Clinician Faci macy 05-26-2022 08:49-0500 Blood Pressure Location Daniel SALMON [facility] 05-26-2022 08:49-0500 Diastolic blood pressure 74 mm[Hg] Daniel SALMON [facility] 05-26-2022 08:49-0500 Heart rate 70 /min Daniel SALMON [facility] 05-26-2022 08:49-0500 Respiratory rate 16 /min Daniel SALMON [facility] 05-26-2022 08:49-0500 Systolic blood pressure 128 mm[Hg] aDniel SALMON [facility] Encounters Encounter Date Encounter Type Care Provider Facility Start: 05-29-2023 ambulatory Daniel SALMON Facili ty:[facility] Start: 04-22-2023 ambulatory [facility] Start: 02-10-2023 ambulatory [facility] Start: 11-26-2022 ambulatory [facility] Start: 10-15-2022 End: 10-15-2022 ambulatory [facility] Start: 10-01-2022 End: 10-01-2022 ambulatory [facility] Start: 08-15-2022 Encounter for genera l adult medical examination without abnormal findings DR SHAI LAU . [facility] Start: 08-14-2022 End: 08-15-[address] SHAI LAU . Facility:[facility] Start: 08-14-2022 End: 08-15-2022 Encounter for general adult medical examination without abnormal findings DR SHAI LAU . Facility:[facility] Start: 08-12-2022 End: 08-13-[address] DANIEL SALMON . Facility:[facility] Start: 06-25-2022 ambulatory [facility] Start: 05-26-2022 End: 05-27-2022 ambulatory Daniel SALMON Facility:[facility] Start: 05-26-2022 End: 05-26-2022 Patient encounter procedure Daniel SALMON [facility] Start: 05-22-2022 End: 05-23-[address] DANIEL SALMON . Facility:[facility] Start: 11-15-2021 End: 11-15-[address] SHAI LAU . Facility:[facility] Start: 11-12-2021 End: 11-12-[address] SHAI LAU . Facility:[facility] Start: 07-02-2021 End: 07-02-2021 Lab Drop off EMERITA Navas NIKI [facility] Start: 07-02-2021 End: 07-02-2021 Patient encounter procedure Toni Carrera Jr. [facility] Procedures Date Procedure Procedure Detail Performing Clinician Start: 11-26-2022 Follow-up visit Follow-up MAX KOWALSKI Start: 03-05-2017 Extracorporeal shock wave lithotripsy of calculus of kidney Toni Carrera Jr. Start: 04-06-2016 Procedure on back Akil Carrera Jr. Start: 04-06-2015 Decompression of med barron nerve Toni Carrera Jr. Start: 04-06-1989 Tonsillectomy Toni de la cruz Jr. Immunizations Immunization Date Immunization Notes Care Provider Fa cility 08-08-2020 SARS-CoV-2 (COVID-19 ) Ad26 vaccine, recombinant Toni Carrera Jr. [facility] 07-18-2020 SARS-CoV-2 (COVID-19 ) Ad26 vaccine, recombinant Toni Carrera Jr. [facility] Payers Date Payer Category Payer Unknown [id number] 2019 Unknown [id number] 1965 Unknown [id number] 2.16.8 [id number] 1965 Unknown [id number] 2.16.8 [id number] 1965 Unknown [id number] 2.16.84 [id number] 1965 Unknown [id number] 2.16.84 [id number] 1965 Unknown [id number] 2.16.84 [id number] 1965 Unknown [id number] 2.16.84 [id number] 1965 Unknown [id number] 2.16.84 [id number] 1965 Unknown [id number] 2.16.84 [id number] 1959 Unknown [id number] Social History Date Type Detail Facility Start: 05-13-2021 Tobacco smoking status Never s moked tobacco (finding) [facility] Sex Assigned At Female [facility] Functional Status Date Assessment Result Facility 05-26-2022 Functional Status N/A [facility] Clinical Notes 05-26-2022 to 04-22-2023 Note [...] to verify the correct patient, procedure, equipment, community support specialist and site/side marked as required. [facility] 02-10-2023 Note Orthopedic Surgery Subjective 10/01/2022 Carpal [...] disease) Kidney stone Migraines Objective Left Hand: Jglrwstwwg-pzse-nimhqb scar from carpal tunnel incision. Thumb: normal A1 winnie and AROM, Index finger: normal A1 winnie and AROM, Long finger: normal A1 winnie and AROM, Ring finger: normal A1 winnie and AROM, and Small finger: normal A1 winnie and AROM Strength: meter record clerk 4+/5, thumb 4+/5, interossei 5/5 Sensation: intact [...] and see her back at that time. [facility] 11-26-2022 Note Attestation signed by Max [...] disease) Kidney stone Migraines Objective Left Hand: Gqsohidlix-rocz-lydiun scar from carpal tunnel incision. Thumb: normal A1 winnie and AROM, Index finger: normal A1 winnie and AROM, Long finger: normal A1 winnie and AROM, Ring finger: normal A1 winnie and AROM, and Small finger: normal A1 winnie and AROM Strength: meter record clerk 5/5, thumb 5/5, interossei 5/5 Sensation: intact [...] SHERIFF MD Orthopedic Surgery, PGY-2 Ortho Pager [phone] 11/26/22 3:14 PM [facility] 10-15-2022 Note Attestation signed by Max [...] SHERIFF MD Orthopedic Surgery, PGY-2 Ortho Pager [phone] 10/15/22 1:20 PM [facility] 10-01-2022 Note Patient: Guillermina curry Procedure Summary Date: 10/01/22 Room / Location: [facility] OR [address] [place] [address] [facility] OR Anesthesia Start: 0834 Anesthesia Stop: [...] per anesthesia protocol. No notable events documented. [facility] 10-01-2022 Note Patient: Guillermina curry Procedure Information Date/Time: 10/01/22829 Procedure: CARPAL TUNNEL RELEASE (Left: Hand) Location: [address] OR Surgeons: Max Kowalski MD Relevant Problems [...] Plan discussed with attending. Additional Equipment Requests [facility] 06-25-2022 Note Orthopedic Surgery Subjective Chief complaint: Left carpal tunnel Guillermina Lopez is a 57 y.o. year old female presenting for follow-up of left [facility] carpal tunnel. She has been following here [...] finger: normal A1 winnie and AROM Strength: meter record clerk 4/5, thumb 4/5, interossei 5/5. Sensation: intact [...] be an additional personal documentation from me. [facility] 05-26-2022 Hospital Discharge instructions Patient Education [...] include: ?Spinach. ?Rhubarb. ?Beets. ?Potato chips and kazakh fries. ?Nuts. If you regularly take a diuretic medicine, make sure to eat at least 1 2 fruits or vegetables high in potassium each day. These include: ?Avocado. ?Banana. ?[place], prune, carrot, or tomato juice. ?Baked potato. [...] Casseroles. Pizza. Lasagna. Frozen meals. Potato chips. Czech fries. Summary You can reduce your risk [...] 07/18/2011 Document Revised: 07/13/2019 Document Reviewed: 03/03/2017 [employer] Patient Education 2020 [employer]. Follow Up Care 05/13/2021 09:33:00 With:Daniel SALMON MD, URL Address: [facility] [address], [place] [address]- When: Unknown [facility] Evaluation + Plan note Future Appointments Appointment Date:05/26/2022 08:45:00 AM Scheduled Provider:Daniel SALMON MD Location:[facility] Appointment Type:URO Office Visit [facility] Evaluation + Plan note Future Appointments Appointment Date:05/26/2022 08:45:00 AM Scheduled Provider:Daniel SALMON MD Location:[facility] Appointment Type:URO Office Visit Diagnostic Tests PendingUrine Culture 07/02/21 [facility] Evaluation + Plan note Future Appointments Appointment Date:05/29/2023 08:00:00 AM Scheduled Provider:Daniel SALMON MD Location:[facility] Appointment Type:URO Office Visit [facility] Hospital course Narrative No data available for this section [facility] Hospital Discharge instructions No data available for this section [facility] Progress note No data available for this section [facility] Summary Purpose Family History No Family History Records FoundNo Family History Records FoundNo Family History Records FoundNo Family History Records Found Advance Directives No Advanced Directives Records FoundNo Advanced Directives Records FoundNo Advanced Directives Records FoundNo Advanced Directives Records Found Additional Source Comments INFORMATION SOURCE (unrecogn ized section and content) DATE CREATED AUTHOR 05/29/2021 [facility] DATE CREATED AUTHOR AUTHOR'S ORGANIZ ATION 08/18/2022 [facility] DATE CREATED AUTHOR AUTHOR'S ORGANIZ ATION 08/21/2022 [facility] DATE CREATED AUTHOR AUTHOR'S ORGANIZ ATION 04/26/2023 [facility] Patient Care team informatio n (unrecognized section and content) Personnel Name: Shai Lau MD Address: Address: [address] [place] [address] FOR RECORDS PERTAINING TO PATIENTS WHO ARE [...] BE BASED ON THE PRIMARY CLINICAL RECORDS. [facility] [employer] [facility]. provides no warranty or guarantee of the accuracy or completeness of information in this document.
== END 2023-06-29 13:32 | disposition home or self-care (01) ==
LOC: US 13:32
PROVIDERS: PCP Family Medicine; Visit Provider Podiatrist Foot & Ankle Surgery
DX: R22.42 Localized swelling, mass and lump, left lower limb (principal); I82.432 Acute embolism and thrombosis of left popliteal vein
CPT/HCPCS: 93971

== ENCOUNTER 2023-06-29 14:10 | Emergency (ER) | payer OTHER, SELFPAY ==
[2023-06-29 14:19] VITALS: BP 128/81; PULSE 79; RESP 14; TEMP 36.5; O2SAT 97; BMI 39.0
[2023-06-29 17:15] VITALS: PULSE 64
--- NOTE | 2023-06-29 17:28 | PC.NURSE ---
pt stitches to L inner calf -- no redness or drainage present. does not appear infected
[2023-06-29 17:30] LABS: Basophils Absolute Auto 0.1 10^3/uL (0.0-0.1); Eosinophils Absolute Auto 0.3 10^3/uL (0.0-0.7); Hematocrit 40.1 % (36.0-48.0); Hemoglobin 12.9 g/dL (12.0-16.0); Immature Granulocytes Abs Auto 0.01 10^3/uL (0.00-0.03); Immature Granulocytes Pct Auto 0.2 % (0.0-0.5); Lymphocytes Absolute Auto 2.1 10^3/uL (1.2-3.8); Lymphocytes Percent Auto 33.5 % (20.5-60.0); Mean Corpuscular HGB Conc 32.2 g/dL (29.9-35.2); Mean Corpuscular Hemoglobin 29.3 pg (26.7-34.0); Mean Corpuscular Volume 90.9 fL (81.0-99.0); Mean Platelet Volume 11.4 fL (9.5-13.5); Monocytes Absolute Auto 0.6 10^3/uL (0.3-0.8); Monocytes Percent Auto 9.3 % (1.7-12.0); Neutrophils Absolute Auto 3.2 10^3/uL (1.4-6.5); Platelet Count 299 10^3/uL (150-450); Red Blood Count 4.41 10^6/uL (4.20-5.40); Red Cell Distribution Width 13.1 % (11.0-15.0); White Blood Count 6.2 10^3/uL (4.0-11.0)
[2023-06-29 17:58] LABS: INR 0.95; Prothrombin Time 10.1 sec (9.0-11.6)
--- NOTE | 2023-06-29 18:05 | ED_ITS ---
HPI - General Adult General Chief complaint: Extremity Problem, Nontraumatic Stated complaint: BLOOD CLOT Time Seen by Provider: 06/29/23 16:54 Source: patient Mode of arrival: walk-in Limitations: no limitations History of Present Illness HPI narrative: Patient is a pleasant 58-year-old female referred to the emergency department from her podiatry office. Patient apparently has had swelling to the left calf for the last week. She had surgery for a gastrocnemius recession [address] Efraín Rodriguez. She had a nurse visit today to remove sutures and reported that her left calf has felt tight for the last week. She was sent for an outpatient ultrasound without being evaluated by a provider and was found to have a popliteal DVT. She was referred to the ER for evaluation and initiation of anticoagulation. She denies chest pain, shortness of breath, dizziness, fevers, chills. She has had no redness or drainage from the surgical incisions. She has no history of DVT or PE. Pain is well-controlled at this time. Related Data Home Medications ?Medication ?Instructions ?Recorded ?Confirmed cetirizine 10 mg tablet (Zyrtec) 10 mg PO DAILY PRN allergy symptoms 05/19/23 06/29/23 lansoprazole 30 mg capsule,delayed 30 mg PO DAILY 05/19/23 06/29/23 release multivitamin (Daily Multi-Vitamin 1 tab PO DAILY 05/19/23 06/29/23 tablet) Previous Rx's ?Medication ?Instructions ?Recorded ondansetron 4 mg disintegrating 4 mg PO Q8H PRN nausea and 06/04/23 tablet vomiting 5 days #15 tabs tizanidine 2 mg tablet 2 mg PO TID PRN muscle spasticity 06/04/23 7 days #21 tabs apixaban 5 mg (74 tabs) tablets in See Rx Instructions .Route 06/29/23 a dose pack (Eliquis DVT-PE Treat .COMPLEX 30 days #74 ea 30D Start) oxycodone-acetaminophen 5 mg-325 1 tab PO Q6H PRN pain 3 days #12 06/29/23 mg tablet (Percocet) tabs Allergies Allergy/AdvReac Type Severity Reaction Status Date / Time levofloxacin [From Levaquin] Allergy Muscle Pain Verified 06/29/23 14:18 phenobarbital Allergy Unknown Verified 06/29/23 14:18 Sulfa (Sulfonamide Allergy Rash Verified 06/29/23 14:18 Antibiotics) Review of Systems ROS Constitutional Denies: fever or chills Ears, nose, mouth, and throat Denies: throat pain or nasal congestion Cardiovascular Denies: chest pain Respiratory Denies: shortness of breath or cough Gastrointestinal Denies: nausea or vomiting Musculoskeletal Denies: back pain Integumentary/Breast Denies: rash Neurological Denies: headache Endocrine Denies: excessive urination Hematologic/Lymphatic Denies: easy bruising or easy bleeding [facility] Medical History (Updated 06/29/23 @ 17:05 by TOÑA Quintanilla) Plantar fascial fibromatosis ?M72.2 - Plantar fascial fibromatosis (ICD-10) Contracture, left ankle ?M24.572 - Contracture, left ankle (ICD-10) Vertigo ?R42 - Dizziness and giddiness (ICD-10) Chronic cystitis ?N30.20 - Other chronic cystitis without hematuria (ICD-10) Chronic kidney disease ?N18.9 - Chronic kidney disease, unspecified (ICD-10) Urinary tract infection ?N39.0 - Urinary tract infection, site not specified (ICD-10) COVID-19 (04/16/23) ?U07.1 - COVID-19 (ICD-10) Migraine ?G43.909 - Migraine, unspecified, not intractable, without status migrainosus (ICD-10) S/P extracorporeal shock wave therapy ?Z98.890 - Other specified postprocedural states (ICD-10) Kidney stones ?N20.0 - Calculus of kidney (ICD-10) Seasonal allergies ?J30.2 - Other seasonal allergic rhinitis (ICD-10) GERD (gastroesophageal reflux disease) ?K21.9 - Gastro-esophageal reflux disease without esophagitis (ICD-10) Surgical History (Updated 05/19/23 @ 11:30 by Cathi Rios NP) History of endometrial ablation ?Z98.890 - Other specified postprocedural states (ICD-10) History of spinal surgery ?Z98.890 - Other specified postprocedural states (ICD-10) History of tonsillectomy ?Z90.89 - Acquired absence of other organs (ICD-10) H/O hand surgery ?Z98.890 - Other specified postprocedural states (ICD-10) History of foot surgery ?Z98.890 - Other specified postprocedural states (ICD-10) History of carpal tunnel release ?Z98.890 - Other specified postprocedural states (ICD-10) Family History (Updated 05/19/23 @ 11:30 by Cathi Rios NP) Other Family history of diabetes mellitus Family history of hypertension Family history of myocardial infarction Social History Within the past year, how often did you have a drink containing alcohol: 2-4 times a month Smoking status: Never smoker Non-prescribed substance use: denies use 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 Left calf is mildly edematous compared to the right with no erythema, red streaking Psych: Normal mood and affect Neuro: No focal neuro deficit Skin: Warm, dry, intact Constitutional Vital Signs, click to edit/add: Last Vital Signs Temp 97.7 F 06/29/23 14:19 Pulse 64 06/29/23 17:15 Resp 14 06/29/23 14:19 BP 128/81 06/29/23 14:19 Pulse Ox 97 06/29/23 14:19 O2 Del Method Room Air 06/29/23 14:19 Course Vital Signs Vital signs: Vital Signs Temperature 97.7 F 06/29/23 14:19 Pulse Rate 79 06/29/23 14:19 Respiratory Rate 14 06/29/23 14:19 Blood Pressure 128/81 06/29/23 14:19 Pulse Oximetry 97 06/29/23 14:19 Oxygen Delivery Method Room Air 06/29/23 14:19 Temperature 97.7 F 06/29/23 14:19 Pulse Rate 64 06/29/23 17:15 Respiratory Rate 14 06/29/23 14:19 Blood Pressure 128/81 06/29/23 14:19 Pulse Oximetry 97 06/29/23 14:19 Oxygen Delivery Method Room Air 06/29/23 14:19 Medical Decision Making MDM Narrative Medical decision making narrative: Patient declined pain medication in the ER, she is neurovascularly intact with stable vital signs. She has no tachycardia, hypoxia, chest pain, shortness of breath, dizziness. CBC and coags are normal. Patient will be started on Eliquis with close follow-up in her PCP office. Return to the emergency department if symptoms change or worsen. Patient was reevaluated by attending physician prior to discharge. She is stable. Medical Records Medical records reviewed: Yes I reviewed the patient's medical records Lab Data Lab results reviewed: Yes I reviewed the patient's lab results Labs: Lab Results 06/29/23 Range/Units 17:13 WBC 6.2 (4.0-11.0) 10^3/uL RBC 4.41 (4.20-5.40) 10^6/uL Hgb 12.9 (12.0-16.0) g/dL Hct 40.1 (36.0-48.0) % MCV 90.9 (81.0-99.0) fL MCH 29.3 (26.7-34.0) pg MCHC 32.2 (29.9-35.2) g/dL RDW 13.1 (11.0-15.0) % Plt Count 299 (150-450) 10^3/uL MPV 11.4 (9.5-13.5) fL Neut % (Auto) 52.0 (43.0-75.0) % Lymph % (Auto) 33.5 (20.5-60.0) % [place] % (Auto) 9.3 (1.7-12.0) % Eos % (Auto) 4.0 (0.9-7.0) % Baso % (Auto) 1.0 (0.2-2.0) % Neut # (Auto) 3.2 (1.4-6.5) 10^3/uL Lymph # (Auto) 2.1 (1.2-3.8) 10^3/uL [place] # (Auto) 0.6 (0.3-0.8) 10^3/uL Eos # (Auto) 0.3 (0.0-0.7) 10^3/uL Baso # (Auto) 0.1 (0.0-0.1) 10^3/uL Abs Immat Gran (auto) 0.01 (0.00-0.03) 10^3/uL Imm/Tot Granulo (auto) 0.2 (0.0-0.5) % PT 10.1 (9.0-11.6) sec INR 0.95 Imaging Data Venous US: Attestation: I have reviewed the pertinent imaging results. Discharge Plan Discharge Stand Alone Forms: Portal Instructions Chief Complaint: Extremity Problem, Nontraumatic Clinical Impression: Deep vein thrombosis of lower extremity Patient Disposition: Home, Self-Care Time of Disposition Decision: 17:05 Condition: Good Prescriptions / Home Meds: New oxycodone-acetaminophen [Percocet] 5-325 mg tablet 1 tab PO Q6H PRN (Reason: pain) 3 Days Qty: 12 0RF Eliquis DVT-PE Treat 30D Start 5 mg (74 tabs) tablets,dose pack See Rx Instructions .ROUTE .COMPLEX 30 Days Qty: 74 0RF Rx Instructions: 10 mg BID x 7 days, then 5 mg BID daily No Action lansoprazole 30 mg capsule,delayed release(DR/EC) 30 mg PO DAILY multivitamin [Daily Multi-Vitamin] Tablet 1 tab PO DAILY cetirizine [Zyrtec] 10 mg tablet 10 mg PO DAILY PRN (Reason: allergy symptoms) ondansetron 4 mg tablet,disintegrating 4 mg PO Q8H PRN (Reason: nausea and vomiting) 5 Days Qty: 15 0RF tizanidine 2 mg tablet 2 mg PO TID PRN (Reason: muscle spasticity) 7 Days Qty: 21 0RF Print Language: Mexican Instructions: Deep Vein Thrombosis (ED), Blood Thinners (ED) Referrals: Rojelio Lau MD [Primary Care Provider] - 1 week (Call the office tomorrow for a follow up appointment)
[2023-06-29] MEDS: APIXABAN 5 MG TABLET 10 MG PO (18:20)
== END 2023-06-29 18:25 | disposition home or self-care (01) ==
PROVIDERS: Physician Assistant; Emergency Provider Emergency Medicine; PCP Family Medicine
DX: R22.42 Localized swelling, mass and lump, left lower limb (principal); I82.432 Acute embolism and thrombosis of left popliteal vein; Z79.899 Other long term (current) drug therapy; N18.9 Chronic kidney disease, unspecified; N30.20 Other chronic cystitis without hematuria; Z86.16 Personal history of COVID-19; Z87.442 Personal history of urinary calculi; K21.9 Gastro-esophageal reflux disease without esophagitis; Z98.890 Other specified postprocedural states
CPT/HCPCS: 36415; 85025; 85610; 93971; 99283

== ENCOUNTER 2023-10-02 10:52 | Outpatient (OUT) | payer OTHER, SELFPAY ==
--- NOTE | 2023-10-02 10:56 | US_ITS ---
[address] [address] Patient Name: KASSANDRA LOPEZ MRN: [id number] date: 1965 Sex: F Assigned Patient Location: US Current Patient Location: US Accession/Order Number: [id number] Exam Date: 10/02/2023 11:30 Report Date: 10/02/2023 13:27 At the request of: SHAI GARY Procedure: US venous doppler LE LT EXAM: US venous doppler LE LT HISTORY: DVT (deep venous thrombosis) I82.409 COMPARISON: 06/29/2023 TECHNIQUE: Grayscale, color and Doppler FINDINGS: Region: Left leg Thrombus: None Flow: Normal Augmentation: Normal Compressibility: Normal US/US venous doppler LE LT IMPRESSION: No deep or superficial vein thrombus identified in the left leg Electronically authenticated by: CONSTANCE HERNANDEZ Date: 10/02/2023 13:27
== END 2023-10-02 10:53 | disposition home or self-care (01) ==
LOC: US 10:52
PROVIDERS: PCP Family Medicine; Visit Provider Family Medicine
DX: M79.605 Pain in left leg (principal); R22.42 Localized swelling, mass and lump, left lower limb; I82.409 Acute embolism and thrombosis of unspecified deep veins of unspecified lower extremity
CPT/HCPCS: 93971

== ENCOUNTER 2023-11-12 10:08 | Outpatient (OUT) | payer OTHER, SELFPAY ==
--- NOTE | 2023-11-11 13:20 | VEINCLINIC_ITS ---
Vital Signs 11/12/23 10:31 Height 5 ft 3 in Weight 99.79 kg BMI 39.0 BP 120/60 BP Location Left Brachial BP Position Sitting BP Cuff Size Adult BP Source Manual Cuff Respiration 16 Pulse 62 Pulse Source Monitor Pulse Oximetry (%) 98 Oxygen Delivery Method Room Air Comment The patient's blood pressure is elevated. Varicose Veins Patient is a 58 year old female in this day with c/o bilateral leg pain and edema along with achiness. Patient states left worse than right leg. 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 Patient has worn bilateral leg knee high compression stockings >2years. Symptoms include achiness, muscle cramps, heaviness, and edema. Patient states symptoms worsen with long periods of standing and lessen with compression stockings, rest, and elevation. Patient has a history of a DVT in June of 2023 which is preceded by a surgery to repair her left foot plantar fasciitis which was 06/04/2023. Patient noted varicose vein disease starting with her first 37 years ago. Patient has not had previous vein procedures nor has she had a reflux ultrasound. Patient has a family history of varicose veins most notably with her mother. ICarlos MD personally performed the services described in this documentation, as scribed by Stefan Hood RN in my presence and it is both accurate and complete. Stefan Cristobal RN, am scribing for, and in the presence of, Dr. Carlos Conde and in the presence of the patient. . thigh: bilateral (left > right leg), knee: bilateral, calf: bilateral, ankle: bilateral and funez: bilateral aching, cramping and tender 37 years Worsened in recent months: Yes standing and walking elevating extremities, compression stockings and exercise Reports muscle spasms of leg, fatigue, heaviness, restless legs, edema and leg edema History of lower extremity trauma: No Superficial thrombophlebitis: Yes (DVT to left leg) Family history of varicose veins: yes Has patient had previous lower extremity venous surgery: No Patient has previously received the following treatment(s) for lower extremity varicose veins: Reports none Does patient have a history of : yes Does patient intend to have future pregnancies: no Has patient had lower extremity venous scan with relux testing: No Support hose used: Yes Problems walking or doing physical activity: Yes How does it affect you: often has to rest and elevate legs/feet while and effects work Do you walk much: Yes Do you stand much: Yes Review of Systems ROS Narrative I, Carlos Conde MD personally performed the services described in this documentation, as scribed by Stefan Hood RN in my presence and it is both accurate and complete. I, Stefan Hood RN, am scribing for, and in the presence of, Dr. Carlos Conde and in the presence of the patient. Status of ROS 10 or more systems reviewed and unremark able except as noted in history and below Cardiovascular Reports: edema Integumentary/Breast Reports: skin swelling Neurological Reports: weakness in extremities [facility] Medical History (Updated 11/17/23 @ 07:36 by Stefan Hood) Varicose veins of bilateral lower extremities with pain ?I83.813 - Varicose veins of bilateral lower extremities with pain (ICD-10) Plantar fascial fibromatosis ?M72.2 - Plantar fascial fibromatosis (ICD-10) Contracture, left ankle ?M24.572 - Contracture, left ankle (ICD-10) Vertigo ?R42 - Dizziness and giddiness (ICD-10) Chronic cystitis ?N30.20 - Other chronic cystitis without hematuria (ICD-10) Chronic kidney disease ?N18.9 - Chronic kidney disease, unspecified (ICD-10) Urinary tract infection ?N39.0 - Urinary tract infection, site not specified (ICD-10) COVID-19 (04/16/23) ?U07.1 - COVID-19 (ICD-10) Migraine ?G43.909 - Migraine, unspecified, not intractable, without status migrainosus (ICD-10) S/P extracorporeal shock wave therapy ?Z98.890 - Other specified postprocedural states (ICD-10) Kidney stones ?N20.0 - Calculus of kidney (ICD-10) Seasonal allergies ?J30.2 - Other seasonal allergic rhinitis (ICD-10) GERD (gastroesophageal reflux disease) ?K21.9 - Gastro-esophageal reflux disease without esophagitis (ICD-10) Surgical History (Updated 05/19/23 @ 11:30 by Cathi Rios NP) History of endometrial ablation ?Z98.890 - Other specified postprocedural states (ICD-10) History of spinal surgery ?Z98.890 - Other specified postprocedural states (ICD-10) History of tonsillectomy ?Z90.89 - Acquired absence of other organs (ICD-10) H/O hand surgery ?Z98.890 - Other specified postprocedural states (ICD-10) History of foot surgery ?Z98.890 - Other specified postprocedural states (ICD-10) History of carpal tunnel release ?Z98.890 - Other specified postprocedural states (ICD-10) Family History (Updated 11/12/23 @ 10:49 by Stefan Hood) Other Family history of diabetes mellitus Family history of hypertension Family history of myocardial infarction Pain due to varicose veins of both lower extremities Social History Within the past year, how often did you have a drink containing alcohol: 2-4 times a month Smoking status: Never smoker Non-prescribed substance use: denies use 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 Highest level of school completed/degree received: high school graduate Meds Home Medications and Allergies Home Medications ?Medication ?Instructions ?Recorded ?Confirmed ?Type cetirizine 10 mg tablet (Zyrtec) 10 mg PO DAILY PRN allergy symptoms 05/19/23 11/12/23 History lansoprazole 30 mg capsule,delayed 30 mg PO DAILY 05/19/23 11/12/23 History release multivitamin (Daily Multi-Vitamin 1 tab PO DAILY 05/19/23 11/12/23 History tablet) ondansetron 4 mg disintegrating 4 mg PO Q8H PRN nausea and 06/04/23 11/12/23 Rx tablet vomiting 5 days #15 tabs tizanidine 2 mg tablet 2 mg PO TID PRN muscle spasticity 06/04/23 11/12/23 Rx 7 days #21 tabs Allergies Allergy/AdvReac Type Severity Reaction Status Date / Time levofloxacin [From Levaquin] Allergy Muscle Pain Verified 06/29/23 14:18 phenobarbital Allergy Unknown Verified 06/29/23 14:18 Sulfa (Sulfonamide Allergy Rash Verified 06/29/23 14:18 Antibiotics) Exam Narrative Exam Narrative: I, Carlos oCnde MD personally performed the services described in this documentation, as scribed by Stefan Hood RN in my presence and it is both accurate and complete. Stefan Cristobal RN, am scribing for, and in the presence of, Dr. Carlos Conde and in the presence of the patient. Constitutional Documenting provider has reviewed patient's vital signs: yes Common normals: oriented x3 Nutritional appearance: overweight Cardio Peripheral pulses: dorsalis pedis pulses present Extremity Common normals: normal capillary refill General: edema Right lower extremity: lower leg Right lower leg: inspection and palpation Left lower extremity: lower leg Left lower leg: inspection and palpation Neuro Common normals: oriented x3 Results Additional Findings Additional findings: Bilateral leg reflux u/s reveals moderate bilateral leg great saphenous and anterior accessory saphenous vein venous insufficiency with associated dilation, along with bilateral leg branch saphenous truncal varicosities. Carlos Cristobal MD personally performed the services described in this documentation, as scribed by Stefan Hood RN in my presence and it is both accurate and complete. Stefan Cristobal RN, am scribing for, and in the presence of, Dr. Carlos Conde and in the presence of the patient. Assessment and Plan Assessment and Plan (1) Varicose veins of bilateral lower extremities with pain: Plan Patient to continue use of bilateral leg knee high compression stockings, rest, and elevate legs. Patient to return for EVLT's of left GSV followed by right GSV followed by left AASV followed by right AASV. Once EVLT's complete, move forward with microfoam chemical ablation bilateral leg branch saphenous varicosities. Lastly, sclerotherapy reticular pre-hemorrhagic spider veins. Carlos Cristobal MD personally performed the services described in this documentation, as scribed by Stefan Hood RN in my presence and it is both accurate and complete. Stefan Cristobal RN, am scribing for, and in the presence of, Dr. Carlos Conde and in the presence of the patient.
--- NOTE | 2023-11-11 13:22 | P.DS_ITS ---
Discharge Plan Discharge Disposition: Home, Self-Care Follow Up Appointments: patient to return for EVLT of left GSV once insurance approval Plan of Treatment: EVLT of left GSV Print Language: Yoruba Discharge Date/Time: 11/12/23 14:28
--- OUTSIDE RECORDS SUMMARY | 2023-11-12 10:14 | XMS_ITS | CCD ---
Author Organization [facility]iniSys[facility] Care Team Providers Care Commissions Analyst Name Role Phone Shai Lau Primary Care Physician JEFFREY ., DR DRUMMOND Consulting Unavailable SALMON ., [...] SKIE, MAX Attending Unavailable SKIEMAX Admitting Unavailable SKIE, MAX Attending Unavailable SKIE, MAX Attending Unavailable SKIE, MAX Attending Unavailable SKIE, MAX Attending Unavailable Hoda SALMON Attending Unavailable Bárbara CNP, Laine Unavailable Lawrence Granger CNPistina Unavailable INES COKER Referring Unavailable LAINE GRANGER Referring Unavailable LUCIO MIXON Attending Unavailable LUCIO MIXON Referring Unavailable Allergies Allergy Classification Reported Allergen(s) Allergy Type Date of Onset Reaction(s) Facility (6 sources) levoFLOXacin; Translations: [levofloxacin] Drug Allergy 02-22-20 16 .. [facility] (14 sources) PHENobarbital; Translations: [phenobarbital] Drug Allergy 07-07-19 15 Unknown [facility] (5 sources) Sulfonamides (Antibiotic); Translations: [sulfa drugs] Drug allergy [facility] (1 source) benzoin resin Drug Allergy 08-21-19 16 [facility] (1 source) levoFLOXacin Drug Allergy 08-21-19 16 [facility] (1 source) Sulfonamides (Antibiotic) Drug allergy (disorder) 08-21-19 16 [facility] (9 sources) Sulfamethoxazole / Trimethoprim; Translations: [SULFAMETHOXAZOLE-TR IMETHOPRIM] Drug Allergy 07-07-19 15 [facility] (1 source) Sulfonamides (Antibiotic); Translations: [SULFA (SULFONAMIDE ANTIBIOTICS)] Propensity to adverse reactions to drug (disorder) 12-20-19 15 [facility] Medications Current Medications Medication Drug Class(es) Dates Sig (Normalized) Sig (Original) Airborne Gummies (4 sources) Start: 04-16-2020 Airborne Gummies Chewed, Daily Start Date: 04/16/20 Status: Ordered amitriptyline hydrochloride 10 mg oral tablet (7 sources) Tricyclic Antidepressant take 1 tablet by mouth once daily at bedtime amitriptyline (ELAVIL) 10 mg tablet Take 10 mg by mouth daily at bedtime. 0 Active cephalexin 500 mg oral capsule (2 sources) Cephalosporin Antibacterial Start: 07-02-2021 End: 07-09-2021 take 1 capsule by mouth every twelve hours Keflex 500 mg Cap 500 mg = 1 cap(s), Oral, q12hr, X 7 day(s), # 14 cap(s), Refills(s) 0, Pharmacy: [facility]/pharmacy #[id number], 161, cm, 05/13/21 9:04:00 EST, Height/Length Dosing, 91.5, kg, 05/13/21 9:04:00 EST, Weight Dosing Start Date: 07/02/21 Stop Date: 07/09/21 Status: Ordered fluconazole 150 mg oral tablet (2 sources) Azole Antifungal Start: 07-02-2021 End: 07-09-2021 Diflucan 150 mg Tab See Instructions, 1 tab po q72 hrs x 3 doses, then dc, # 3 tab(s), Refills(s) 0, Pharmacy: [facility]/pharmacy #[id number], 161, cm, 05/13/21 9:04:00 EST, Height/Length Dosing, 91.5, kg, 05/13/21 9:04:00 EST, Weight Dosing Start Date: 07/02/21 Stop Date: 07/09/21 Status: Ordered Prevacid (4 sources) Proton Pump Inhibitor Start: 09-19-2019 Prevacid Oral, Daily, Refills(s) 0 Start Date: 09/19/19 Status: Ordered metoclopramide 5 mg oral tablet (7 sources) Dopamine-2 Receptor Antagonist take 1 tablet by mouth once daily at bedtime metoclopramide HCl (REGLAN) 5 mg tablet Take 5 mg by mouth daily at bedtime. 0 Active Multivitamin, Therapeutic w/ Minerals (4 sources) Start: 01-11-2016 take 1 tablet by mouth once daily Multivitamin, Therapeutic w/ Minerals 1 tab(s), Oral, Daily, Refill(s) 0, Prophylaxis Start Date: 01/11/16 Status: Ordered [place]-3 Fatty Acids-Vitamin E (FISH OIL) 1,000 mg cap (7 sources) [place]-3 Fatty Acids-Vitamin E (FISH OIL) 1,000 mg cap Take 1 capsule by mouth. 0 Active ONE DAILY MULTIVITAMIN ORAL (7 sources) ONE DAILY MULTIVITAMIN ORAL Take by mouth. 0 Active Problems Active Problems Problem Classification Problem Date Documented Date Episodic/Chronic Abdominal pain (4 sources) Abdominal pain 04-16-2020 Episodic Calculus of urinary tract (10 sources) Kidney stone; Translations: [Calculus of kidney] Onset: 3 05-30-2019 Episodic Disorders of lipid metabolism (1 source) Pure hypercholesterolemia, unspecified; Translations: [PURE HYPERCHOLESTEROLEMIA UNSPEC] Onset: 3 Chronic Genitourinary symptoms and ill-defined conditions (6 sources) Female stress incontinence; Translations: [Stress incontinence (female) (male)] Onset: 3 05-30-2019 Chronic Genitourinary symptoms and ill-defined conditions (13 sources) Microscopic hematuria; Translations: [Other microscopic hematuria] Onset: 2 Episodic Malaise and fatigue (1 source) Other fatigue; Translations: [OTHER FATIGUE] Onset: 3 Episodic Other nervous system disorders (3 sources) Carpal tunnel syndrome, left upper limb; Translations: [Carpal tunnel syndrome, left upper limb] Onset: 3 Chronic Other nervous system disorders (2 sources) Carpal tunnel syndrome of left wrist; Translations: [Carpal tunnel syndrome, left upper limb] 08-25-2023 Chronic Other nervous system disorders (1 source) Paresthesia of hand ; Translations: [Anesthesia of skin] 08-13-2023 Episodic Other screening for suspected conditions (not mental disorders or infectious disease) (1 source) Encounter for screening for malignant neoplasm of colon; Translations: [ENC SCREEN MALIG NEOPLASM COLON] Onset: 3 Episodic Residual codes; unclassified (3 sources) Pain; Translations: [Pain, unspecified] Onset: 3 Episodic Residual codes; unclassified (1 source) Pain, unspecified; Translations: [Pain] Onset: 4 Episodic Sprains and strains (3 sources) Sprain of left wrist; Translations: [Unspecified sprain of left wrist, sequela] Onset: 4 08-25-2023 Episodic Unclassified (3 sources) CONTACT W/AND (SUSP) EXPOS COVID-19; Translations: [CONTACT W/AND (SUSP) EXPOS COVID-19] Onset: 2 Unclassified (2 sources) Post-op; Translations: [Post-op] Onset: 3 Urinary tract infections (6 sources) Chronic cystitis; Translations: [Other chronic cystitis without hematuria] Onset: 3 04-16-2020 Chronic Urinary tract infections (4 sources) Urinary tract infectious disease 04-16-2020 Episodic Past or Other Problems Problem Classification Problem Date Documented Da te Episodic/Chronic Unclassified (1 source) CONTACT W/AND (SUSP) EXPOS COVID-19; Translations: [CONTACT W/AND (SUSP) EXPOS COVID-19] Onset: 11-15-2021 Results Test Name Value Interpretation Reference Range Facility [facility] 09-29-2023 [facility] Telephone (EMGMN) ALYSSA LOPEZ ([id number]) 1965 F Date Time Provider Department 09/29/23 INES COKER EMGMN During your visit today, we recorded the following information about you: Neema Campos 09/29/2023 2:15 PM Signed Results from EMG performed on 09/29/2023 were faxed to Laine Granger at fax number on 09/29/2023. Fax confirmation received. Allergies As of Date: 09/29/2023 Noted Allergy Reaction BACTRIM (SULFAMETHOXAZOLE-TR IMETH*07/06/2014 2 - Rash PHENOBARBITAL 07/06/2014 16 - Unknown Date Reviewed: 08/13/2023 Reviewed by: Nargis Stiles MA - Fully Assessed Reason for Visit: EMG- FAXED RESULTS [Other] Prescriptions as of 09/29/2023 - ONE DAILY MULTIVITAMIN ORAL Take by mouth. - [place]-3 Fatty Acids-Vitamin E (FISH OIL) 1,000 mg cap Take 1 capsule by mouth. - amitriptyline (ELAVIL) 10 mg tablet Take 10 mg by mouth daily at bedtime. - metoclopramide HCl (REGLAN) 5 mg tablet Take 5 mg by mouth daily at bedtime. Problem List As Of Date: 09/29/2023 (None) Encounter Status:Closed by NEEMA CAMPOS on 09/29/23 [facility] EMG(NEURO/NI)on 09-29-2023 Results can be seen in attached scanned documents. If you are a patient reviewing this test result, call the doctor who ordered the test with any questions. [facility] 08-28-2023 [facility] Telephone (EMGMN) ALYSSA LOPEZ ([id number]) 1965 F Date Time Provider Department 08/28/23 INES COKER EMGMN During your visit today, we recorded the following information about you: Mandy Preciado 08/28/2023 3:44 PM Signed Spoke with Alyssa Lopez on 08/27 in regards to getting scheduled for their EMG appointment. Patient indicated that they are taking the medication Eliquis. Instructed that this medication is to be held for 24 hours prior to testing. Patient is to reach out to prescribing physician to ensure that it is safe to hold prior to testing. Patient expressed understanding with these instructions. Allergies As of Date: 08/28/2023 Noted Allergy Reaction BACTRIM (SULFAMETHOXAZOLE-TR IMETH*07/06/2014 2 - Rash PHENOBARBITAL 07/06/2014 16 - Unknown Date Reviewed: 08/13/2023 Reviewed by: Nargis Stiles MA - Fully Assessed Reason for Visit: EMG Instructions [Other] Prescriptions as of 08/28/2023 - ONE DAILY MULTIVITAMIN ORAL Take by mouth. - [place]-3 Fatty Acids-Vitamin E (FISH OIL) 1,000 mg cap Take 1 capsule by mouth. - amitriptyline (ELAVIL) 10 mg tablet Take 10 mg by mouth daily at bedtime. - metoclopramide HCl (REGLAN) 5 mg tablet Take 5 mg by mouth daily at bedtime. Problem List As Of Date: 08/28/2023 (None) Encounter Status:Closed by MANDY PRECIADO on 08/28/23 [facility] Izzy 08-20-2023 [facility] Telephone (OTMBHT) ALYSSA LOPEZ ([id number]) 1965 F Date Time Provider Department 08/20/23 LUCIO MIXON During your visit today, we recorded the following information about you: Karly Leija 08/20/2023 9:18 AM Signed Name of Caller: Nayeli at [employer] Relationship to patient: Last visit in this department: 08/13/2023 Reason for Call: Other : Nayeli calling from [facility] to get office notes and any test results if applicable for the 08/13/23 visit. Please fax to [phone] Callback number: [phone] Fax Number (if necessary): [phone] Additional info if needed (Prior Auth #, Claim #, etc?): N/A Valentina Bella PA-C 08/24/2023 9:[address] Mixon's note still not completed, I did call Nayeli at [employer]. We did discuss that the patient needs to find their old nerve conduction study and get a new nerve conduction study (Study can be request by POR) and then should follow-up with Dr. Mixon to discuss both. Allergies As of Date: 08/20/2023 Noted Allergy Reaction BACTRIM (SULFAMETHOXAZOLE-TR IMETH*07/06/2014 2 - Rash PHENOBARBITAL 07/06/2014 16 - Unknown Date Reviewed: 08/13/2023 Reviewed by: Nargis Stiles MA - Fully Assessed Prescriptions as of 08/24/2023 - ONE DAILY MULTIVITAMIN ORAL Take by mouth. - [place]-3 Fatty Acids-Vitamin E (FISH OIL) 1,000 mg cap Take 1 capsule by mouth. - amitriptyline (ELAVIL) 10 mg tablet Take 10 mg by mouth daily at bedtime. - metoclopramide HCl (REGLAN) 5 mg tablet Take 5 mg by mouth daily at bedtime. Problem List As Of Date: 08/20/2023 (None) Encounter Status:Closed by VALENTINA LINDSEY on 08/24/23 [facility] CNOVon 08-13-2023 CNOV Office Visit (OTMBHT) ALYSSA LOPEZ ([id number]) 1965 F Date Time Provider Department 08/13/23 9:20 AM LUCIO MIXON During your visit today, we recorded the following information about you: Lucio Mixon MD 09/08/2023 4:53 PM Signed Lucio Mixon MD Department of Orthopaedics Orthopaedic Surgery [facility] [address] [place] [facility] [address] Dept: [phone] Dept August 13, 2023 CHIEF COMPLAINT: New and Pain of the Left Wrist HPI Patient is here today for left wrist pain/numbnessAND tingling. She sustained an injury at work in 2019, and has been dealing with pain since. She has a history of CTR in September of 2022 that did not improve her symptoms, still has numbness pain and tingling. Tried one cortisone injection this past April, but pain improved for only a few days. ASSESSMENT: R20.0, R20.2 Numbness and tingling in left hand (primary encounter diagnosis) PLAN: SHe's going to track down her origional EMG test. SHe'll have her [facility] POR get an c9 for a new nerve test. She'll share both of those with me and then we'll develop a game plan. FOLLOW UP INSTRUCTIONS: She either has recurrent CTS, which is not common, but possible. It is also possible to be of a different etiology with cervical involvement, or other. OBJECTIVE: Ms. Alyssa Lopez is a pleasant 58 year old in no apparent distress. Gen:There were no vitals taken for this visit. nl development, no deformities ENT: Normocephalic, normal hearing, moist mucosa CV: Pulses:Radial= 2+ and symmetric, capillary refill < 2 secs, no peripheral edema/varicosities Skin: no rash, bruising or lesions. Good turgor. Psych: cooperative and appropriate, alert and oriented x 3, good mood and affect. Musculoskeletal: Prior incision noted without any concerns. Mildly positive tinel's at the wrist, neg MNCT. Sensation intact, grossly to light touch. Mild swelling over the thumb, MCP joint with tenderness and crepitus on Grind testing. IMAGING: TECHNIQUE: 3 views left wrist COMPARISON: None. RESULT: There is postsurgical change of plate and screw fixation of fourth metacarpal with intact hardware with satisfactory alignment. No acute fracture identified. There is moderate first CMC joint degenerative change with joint space narrowing and osteophyte formation along with small adjacent corticated ossicles. Tiny osteophyte formation first metacarpal head without narrowing of the first MCP joint. Mild to moderate degenerative change index finger DIP joint. No obvious focal soft tissue swelling. Supporting Subjective Information Below: Past Medical History: PAST MEDICAL HISTORY Diagnosis Date Concussion Past Surgical History: PAST SURGICAL HISTORY Procedure Laterality Date PAST SURGICAL HISTORY OF left hand surgery TONSILLECTOMY HX Family History: FAMILY HISTORY Problem Relation Age of Onset Cataract Father Social History: Social History Tobacco Use Smoking status: Never Substance Use Topics Alcohol use: Yes Drug use: No Medications: Current Outpatient Medications Medication Sig ONE DAILY MULTIVITAMIN ORAL Take by mouth. [place]-3 Fatty Acids-Vitamin E (FISH OIL) 1,000 mg cap Take 1 capsule by mouth. amitriptyline (ELAVIL) 10 mg tablet Take 10 mg by mouth daily at bedtime. metoclopramide HCl (REGLAN) 5 mg tablet Take 5 mg by mouth daily at bedtime. No current facility-administere d medications for this visit. Allergies: Bactrim [Sulfamethoxazole-Tr imethoprim] and Phenobarbital ROS: General (negative for fatigue, malaise, weight loss/gain) HEENT (negative for headache, earache, recent vision changes, sinus pain, sore throat) Respiratory (no recent shortness of breath, hemoptysis) CV (negative for chest tightness, palpitations) Musculoskeletal (see HPI) Psych (no depression, anxiety) REFERRING PHYSICIAN: Consultation requested by Laine Granger CNP for an opinion regarding hand numbness-S/P surgery. My final recommendations will be communicated back to the requesting physician by way of shared Medical record or letter to requesting physician via US mail. Laine Granger EXTRACTOR FILLER [address] [facility] [address] Lucio Mixon MD Referring Provider: LAINE GRANGER [[id number]] Allergies As of Date: 08/13/2023 Noted Allergy Reaction BACTRIM (SULFAMETHOXAZOLE-TR IMETH*07/06/2014 2 - Rash PHENOBARBITAL 07/06/2014 16 - Unknown Date Reviewed: 08/13/2023 Reviewed by: Nargis Stiles MA - Fully Assessed Reason for Visit: New [552749] Pain [78] Primary Visit Diagnosis:Numbness and tingling in left hand [R20.0, R20.2] Prescriptions as of 09/08/2023 - ONE DAILY MULTIVITAMIN ORAL Take by mouth. - [place]-3 Fatty Acids-Vitamin E (FISH OIL) 1,000 mg cap Take 1 capsule by mouth. - amitriptyline (ELAVIL) 10 mg tablet Take 10 mg by mouth da (more content not included)... [facility] XR WRIST 3V PA/LAT/OBL LTon 08-13-2023 XR WRIST 3V PA/LAT/OBL LT * * *Final Report* * * DATE OF EXAM: Aug 13 2023 9:24AM M2X 5270 - XR WRIST 3V PA/LAT/OBL LT / PROCEDURE REASON: Pain * * * * Physician Interpretation * * * * HISTORY: Pain TECHNIQUE: 3 views left wrist COMPARISON: None. RESULT: There is postsurgical change of plate and screw fixation of fourth metacarpal with intact hardware with satisfactory alignment. No acute fracture identified. There is moderate first CMC joint degenerative change with joint space narrowing and osteophyte formation along with small adjacent corticated ossicles. Tiny osteophyte formation first metacarpal head without narrowing of the first MCP joint. Mild to moderate degenerative change index finger DIP joint. No obvious focal soft tissue swelling. IMPRESSION: REMOTE POSTSURGICAL AND DEGENERATIVE CHANGES DESCRIBED Art Display Maker: PSCB Transcribe Date/Time: Aug 13 2023 10:48A Dictated by : SARITA WILEY MD This examination was interpreted and the report reviewed and electronically signed by: SARITA WILEY MD on Aug 13 2023 10:50AM EST [id number] [facility] Provider Letteron 04-23-2023 Provider Letter April 23, 2023 ALYSSA LOPEZ [id number] [facility] [place] [address] : 1965 Dear Alyssa , We have been trying to reach you with no success. You have an appointment with Dr. Hoda Salmon on May 29 which will need to be rescheduled since he will be out of the office that day. Please contact the office at the number listed below to get this appointment rescheduled at your earliest convenience. Thank you for your prompt attention to this matter. Sincerely, [facility] [address], [place] [address] [facility] Follow-Upon 04-22-2023 Follow-Up [id number] Alyssa Lopez 1965 Provider Department Center 04/22/2023 MAX MUSTAFA MP ORTH[facility] CLAUDIARTHO Family History Family history unknown: Yes Level of Service:20453 GA OFFICE/OUTPT VISIT,PROCEDURE ONLY Reason for Visit and Comments: Follow-up [841691] - Constant tingling - thumb goes numb when driving or holding something for a bit and the numbness also goes into the middle finger as well. Pain [136] - Constant tingling - thumb goes numb when driving or holding something for a bit and the numbness also goes into the middle finger as well. [facility] Follow-Upon 02-10-2023 Follow-Up [id number] Alyssa Lopez 1965 Provider Department Center 02/10/2023 MAX MUSTAFA MP ORTHO MPORTHO Family History Family history unknown: Yes Level of Service:07445 GA OFFICE/OUTPATIENT ESTABLISHED LOW MDM 20-29 MIN Reason for Visit and Comments: Follow-up [495764] Normal [facility] Follow-Upon 11-26-2022 Follow-Up [id number] Alyssa Lopez 1965 Provider Department Center 11/26/2022 MAX MUSTAFA MP ORTHO MPORTHO Family History Family history unknown: Yes Level of Service:14198 GA OFFICE/OUTPATIENT ESTABLISHED LOW MDM 20-29 MIN Reason for Visit and Comments: Pain [136] Follow-up [692122] [facility] Office Visiton 10-15-2022 Follow-up visit [id number] Alyssa Lopez 1965 F Date Provider Department Center 10/15/2022 438-MAX KOWALSKI MP [facility] Family History Family history unknown: Yes Level of Service:64694 GA POSTOP FOLLOW UP VISIT RELATED TO ORIGINAL PX (GC) Reason for Visit and Comments: Post-op [483] Follow-up [540128] [facility] 36on 10-02-2022 36 I spoke to the patient to see how she is doing after her recent surgery with Dr Kowalski. Ms Arash stated she is doing well and that her pain is manageable with medications. She has a follow up with Dr Kowalski on October 15 at 120. She had no other questions or concerns. [facility] HPon 10-01-2022 HP History Of [...] Active Problems: Hyperlipidemia L C TR Normal [facility] OPNOTEon 10-01-2022 OPNOTE Operative Note Patient: Guillermina Lopez Date of Surgery: 10/01/2022 : 1965 Pre-operative Diagnosis: Carpal Tunnel Syndrome left Hand Post-operative Diagnosis: same Operation: Carpal Tunnel Release, left (23970) Surgeon: Max Kowalski MD Recharger: Drew Chacon MD Staff: Disability Insurance Claim Examiner: Mayte Chery RN Scrub Person: Cayetano Ace [...] PACU Condition: stable Max Kowalski MD Normal [facility] POCT GLUCOSE METER UNSOLICIT ED RESULTSon 10-01-2022 Glucose [Mass/Vol] 91 mg/dL Normal 70-105 [facility] Comment on above: Order Comment: Waive d Testing in the ED is performed under the ED CLIA certificate #[id number]. Result Comment: epaw low Performed By: #### L [id number] ####[facility] (BEAKER)[address] [place] [address] [id number] 09-24-2022 [id number] NPO AFTER MIDNIGHT. MUST HAVE A SIDE DOOR MAN TO TAKE YOU HOME AND SOMEONE TO STAY FOR 24 HOURS AFTER SURGERY. NO JEWELRY OR VALUABLES. HOLD THE MEDS WE SPOKE ABOUT: VITAMINS STARTING 09-27. TAKE THE MEDS WE SPOKE ABOUT WITH A SIP OF WATER DOS: PREVACID, ADIPEX. BRING INSURANCE CARD AND PHOTO ID AND MED LIST. [facility] Lab Reportson 08-21-2022 Lab Reports [id number] #1.00CD:127 Normal [facility] CITRATE URINE 24HRon 023 Citric Acid, U, 24hr 363 mg/24 hr Normal 320-1240 [facility] Comment on above: Result Comment: This test was developed and its performance characteristics determined by [employer]. It has not been cleared or approved by the Food and Drug Administration. Performed By: #### C ITRATU #### [facility] [address] [address] [address] Prabhu Lopez Citric Acid, Urine 338 mg/L Normal Undefined [facility] Comment on above: Performed By: #### C ITRATU #### [facility] [address] [address] [address] Prabhu Lopez OXALATE 24HR URINEon 023 Oxalates, Urine 15 mg/L Normal Undefined [facility] Comment on above: Performed By: #### O X24HR #### [facility] [address] [address] [address] Prabhu Lopez Oxalates, Urine 24hr 16 mg/24 hr Normal 4-31 [facility] Comment on above: Performed By: #### O X24HR #### [facility] [address] [address] [address] Prabhu Lopez Lab Reportson 08-17-2022 Lab Reports [id number] #1.00CD:127 Normal [facility] Lab Reports [id number] #1.00CD:127 Normal [facility] Lab Reports [id number] #1.00CD:127 Normal [facility] MAGNESIUM 24HR URINEon 08-15 Magnesium 24hr Urine 94.6 mg/24 hr Normal 12.0-293.0 T [facility] Comment on above: Performed By: #### U JESI, BMP #### [facility] [address] [place] [address] Dr. Prabhu Lopez Magnesium UR 8.8 mg/dL Normal Not Estab. [facility] Comment on above: Performed By: #### U JESI, BMP #### [facility] [address] [place] [address] Dr. Prabhu Lopez PHOSPHORUS 24HR URINEon 08-04 Phosphorus, Urine 48.2 mg/dL Normal Not Estab. [facility] Comment on above: Performed By: #### P HOS 24 #### [facility] [address] [place] [address] Dr. Prabhu Lopez Phosphorus, Urine 24hr 518 mg/24 hr Normal 261-1078 [facility] Comment on above: Performed By: #### P HOS 24 #### [facility] [address] [place] [address] Dr. Prabhu Lopez URIC ACID 24 HR URINEon 08-04 Uric Acid, Urine 29.6 mg/dL Normal Not Estab. [facility] Comment on above: Performed By: #### U JESI, BMP #### [facility] [address] [place] [address] Dr. Prabhu Lopez Uric Acid, Urine 24hr 318.2 mg/24 hr Normal 173.7-902.1 [facility] Comment on above: Performed By: #### U JESI, BMP #### [facility] [address] [place] [address] Dr. Prabhu Lopez CALCIUM 24 HR URINEon 2022 CALC, 24 HR UR 76.3 mg/24 hr Critically low 100.0-300.0 Th [facility] Comment on above: Performed By: #### C [id number] #### [facility] [address] [place] [address] Dr. Prabhu Lopez UR CALCIUM 7.1 mg/dL Normal 5.1-21.0 [facility] Comment on above: Performed By: #### C [id number] #### [facility] [address] [place] [address] Dr. Prabhu Lopez UR TOT VOL 1075 ml/24 HR Normal [facility] Comment on above: Performed By: #### C [id number] #### [facility] [address] [place] [address] Dr. Prabhu Lopez Performed By: #### N A24U, [id number] #### [facility] [address] [place] [address] Dr. Prabhu Lopez CBC AUTO DIFFon 08-14-2022 BASO # 0.1 103/ul Normal 0.0-0.1 [facility] Comment on above: Performed By: #### U JESI, BMP #### [facility] [address] [place] [address] Dr. Prabhu Lopez Basophils/100 WBC (Bld) 1.3 % Normal 0.2-2.0 [facility] Comment on above: Performed By: #### U JESI, BMP #### [facility] [address] [place] [address] Dr. Prabhu Lopez EO # 0.3 103/ul Normal 0.0-0.7 [facility] Comment on above: Performed By: #### U JESI, BMP #### [facility] [address] [place] [address] Dr. Prabhu Lopez Eosinophils/100 WBC (Bld) 5.2 % Normal 0.9-7.0 [facility] Comment on above: Performed By: #### U JESI, BMP #### [facility] [address] [place] [address] Dr. Prabhu Lopez Erythrocyte distribution width (RBC) [Ratio] 12.9 % Normal 11.0-15.0 [facility] Comment on above: Performed By: #### U JESI, BMP #### [facility] [address] [place] [address] Dr. Prabhu Lopez Hematocrit (Bld) [Volume fraction] 42.7 % Normal 36.0-48.0 [facility] Comment on above: Performed By: #### U JESI, BMP #### [facility] [address] [place] [address] Dr. Prabhu Lopez Hemoglobin (Bld) [Mass/Vol] 13.4 g/dL Normal 12.0-16.0 [facility] Comment on above: Performed By: #### U JESI, BMP #### [facility] [address] [place] [address] Dr. Prabhu Lopez IG # 0.02 10e3/ul Normal 0.00-0.03 [facility] Comment on above: Performed By: #### U JESI, BMP #### [facility] [address] [place] [address] Dr. Prabhu Lopez IG % 0.4 % Normal 0.0-0.5 [facility] Comment on above: Performed By: #### U JESI, BMP #### [facility] [address] [place] [address] Dr. Prabhu Lopez LYMPH # 2.0 103/ul Normal 1.2-3.8 [facility] Comment on above: Performed By: #### U JESI, BMP #### [facility] [address] [place] [address] Dr. Prabhu Lopez Lymphocytes/100 WBC (Bld) 41.5 % Normal 20.5-60.0 [facility] Comment on above: Performed By: #### U JESI, BMP #### [facility] [address] [place] [address] Dr. Prabhu Lopez MANUAL DIFF REQ NO Normal [facility] Comment on above: Performed By: #### U JESI, BMP #### [facility] [address] [place] [address] Dr. Prabhu Lopez MCH (RBC) [Entitic mass] 28.7 pg Normal 26.7-34.0 [facility] Comment on above: Performed By: #### U JESI, BMP #### [facility] [address] [address] [address] Prabhu Lopez MCHC (RBC) [Mass/Vol] 31.4 g/dL Normal 29.9-35.2 [facility] Comment on above: Performed By: #### U JESI, BMP #### [facility] [address] [place] [address] Dr. Prabhu Lopez MCV (RBC) [Entitic vol] 91.4 fL Normal 81.0-99.0 [facility] Comment on above: Performed By: #### U JESI, BMP #### [facility] [address] [place] [address] Dr. Prabhu Lopez MONO # 0.4 103/ul Normal 0.3-0.8 [facility] Comment on above: Performed By: #### U JESI, BMP #### [facility] [address] [place] [address] Dr. Prabhu Lopez Monocytes/100 WBC (Bld) 8.3 % Normal 1.7-12.0 [facility] Comment on above: Performed By: #### U JESI, BMP #### [facility] [address] [place] [address] Dr. Prabhu Lopez NEUT # 2.1 103/ul Normal 1.4-6.5 [facility] Comment on above: Performed By: #### U JESI, BMP #### [facility] [address] [place] [address] Dr. Prabhu Lopez Neutrophils/100 WBC (Bld) 43.3 % Normal 43.0-75.0 [facility] Comment on above: Performed By: #### U JESI, BMP #### [facility] [address] [place] [address] Dr. Prabhu Lopez Platelet mean volume (Bld) [Entitic vol] 11.7 fL Normal 9.5-13.5 [facility] Comment on above: Performed By: #### U JESI, BMP #### [facility] [address] [place] [address] Dr. Prabhu Lopez PLT 237 103/ul Normal 150-450 [facility] Comment on above: Performed By: #### U JESI, BMP #### [facility] [address] [place] [address] Dr. Prabhu Lopez RBC 4.67 106/ul Normal 4.20-5.40 [facility] Comment on above: Performed By: #### U JESI, BMP #### [facility] [address] [place] [address] Dr. Prabhu Lopez WBC 4.8 103/ul Normal 4.0-11.0 [facility] Comment on above: Performed By: #### U JESI, BMP #### [facility] [address] [place] [address] Dr. Prabhu Lopez CREA 24 HR URINEon 3 CREA, 24 HR UR 875.48 mg/24 hr Normal 800.00-1,8 00. 00 [facility] Comment on above: Performed By: #### N A24U, [id number] #### [facility] [address] [place] [address] Dr. Prabhu Lopez URINE CREAT 81.44 mg/dL Normal 20.00-300.00 [facility] Comment on above: Performed By: #### N A24U, [id number] #### [facility] [address] [place] [address] Dr. Prabhu Lopez FREE THYROXINE INDEX T7on FTI 2.34 Normal 1.30-4.50 [facility] Comment on above: Performed By: #### U JESI, BMP #### [facility] [address] [place] [address] Dr. Prabhu Lopez T3U 33.0 % Normal 30.0-39.0 [facility] Comment on above: Performed By: #### U JESI, BMP #### [facility] [address] [place] [address] Dr. Prabhu Lopez T4 [Mass/Vol] 7.10 ug/dL Normal 4.80-13.90 [facility] Comment on above: Performed By: #### U JESI, BMP #### [facility] [address] [place] [address] Dr. Prabhu Lopez GLYCOHEMOGLOBIN A1Con 2022 ADA RECOMMENDATION SEE BELOW Normal [facility] Comment on above: Result Comment: ADA RECOMMENDED LIMIT 4.0 - 6.0 ADA THERAPEUTIC TARGET < 7.0 ACTION SUGGESTED > 7.0 Performed By: #### U JESI, BMP #### [facility] [address] [address] [address] Prabhu Lopez Glucose [Mass/Vol] 123 mg/dL Normal [facility] Comment on above: Performed By: #### U JESI, BMP #### [facility] [address] [address] [address] Prabhu Lopez HbA1c (Bld) [Mass fraction] 5.9 % Normal 4.5-6.2 [facility] Comment on above: Performed By: #### U JESI, BMP #### [facility] [address] [place] [address] Dr. Prabhu Lopez LIPID PROFILEon 08-14-2022 CHOL-HDL RATIO NORM SEE BELOW Normal [facility] Comment on above: Result Comment: 3.3 - 4.4 LOW RISK 4.4 - 7.1 AVERAGE RISK 7.1 - 11.0 MODERATE RISK >11.0 HIGH RISK Performed By: #### U JESI, BMP #### [facility] [address] [address] [address] Prabhu Lopez Cholesterol [Mass/Vol] 255 mg/dL Critically high <=200 [facility] Comment on above: Performed By: #### U JESI, BMP #### [facility] [address] [address] [address] Prabhu Lopez Cholesterol in HDL [Mass/Vol] 80 mg/dL Critically high 40-60 [facility] Comment on above: Performed By: #### U JESI, BMP #### [facility] [address] [address] [address] Prabhu Lopez Cholesterol in LDL [Mass/Vol] 156.6 mg/dL Normal [facility] Comment on above: Performed By: #### U JESI, BMP #### [facility] [address] [address] [address] Prabhu Lopez Cholesterol.total/Ch olesterol in HDL [Mass ratio] 3.2 {ratio} Normal [facility] Comment on above: Performed By: #### U JESI, BMP #### [facility] [address] [address] [address] Prabhu Lopez HDL NORMAL > or = 60 mg/dl - LOW CARDIOVASCULAR RISK <40 mg/dl - HIGH CARDIOVASCULAR RISK Normal [facility] Comment on above: Performed By: #### U JESI, BMP #### [facility] [address] [address] [address] Prabhu Lopez LDL CALC NORMAL SEE BELOW Normal [facility] Comment on above: Result Comment: <100 mg/dl OPTIMAL 100 - 129 mg/dl NEAR OR ABOVE OPTIMAL 130 - 159 mg/dl BORDERLINE HIGH 160 - 189 mg/dl HIGH >190 mg/dl VERY HIGH Performed By: #### U JESI, BMP #### [facility] [address] [place] [address] Dr. Prabhu Lopez Triglyceride [Mass/Vol] 92 mg/dL Normal <=150 [facility] Comment on above: Performed By: #### U JESI, BMP #### [facility] [address] [place] [address] Dr. Prabhu Lopez VLDL CALC 18.4 mg/dL Normal [facility] Comment on above: Performed By: #### U JESI, BMP #### [facility] [address] [place] [address] Dr. Prabhu Lopez PROF 14(COMP METB)on 023 Albumin [Mass/Vol] 3.9 g/dL Normal 3.4-5.0 [facility] Comment on above: Performed By: #### U JESI, BMP #### [facility] [address] [place] [address] Dr. Prabhu Lopez Albumin/Globulin [Mass ratio] 0.8 {ratio} Normal [facility] Comment on above: Performed By: #### U JESI, BMP #### [facility] [address] [place] [address] Dr. Prabhu Lopez ALP [Catalytic activity/Vol] 74 U/L Normal 46-116 [facility] Comment on above: Performed By: #### U JESI, BMP #### [facility] [address] [address] [address] Prabhu Lopez ALT [Catalytic activity/Vol] 29 U/L Normal 14-59 [facility] Comment on above: Performed By: #### U JESI, BMP #### [facility] [address] [address] [address] Prabhu Lopez Anion gap [Moles/Vol] 10.9 mmol/L Normal [facility] Comment on above: Performed By: #### U JESI, BMP #### [facility] [address] [address] [address] Prabhu Lopez AST [Catalytic activity/Vol] 22 U/L Normal 15-37 [facility] Comment on above: Performed By: #### U JESI, BMP #### [facility] [address] [address] [address] Prabhu Lopez Bilirubin [Mass/Vol] 0.7 mg/dL Normal 0.2-1.0 [facility] Comment on above: Performed By: #### U JESI, BMP #### [facility] [address] [address] [address] Prabhu Lopez Calcium [Mass/Vol] 8.9 mg/dL Normal 8.5-10.1 [facility] Comment on above: Performed By: #### U JESI, BMP #### [facility] [address] [address] [address] Prabhu Lopez Chloride [Moles/Vol] 106 mmol/L Normal 98-107 [facility] Comment on above: Performed By: #### U JESI, BMP #### [facility] [address] [address] [address] Prabhu Lopez CO2 [Moles/Vol] 30.1 mmol/L Normal 21.0-32.0 [facility] Comment on above: Performed By: #### U JESI, BMP #### [facility] [address] [address] [address] Prabhu Lopez Creatinine [Mass/Vol] 0.94 mg/dL Normal 0.55-1.02 [facility] Comment on above: Performed By: #### U JESI, BMP #### [facility] [address] [address] [address] Prabhu Lopez EGFR-AF SWEDISH >60 Normal >=60 [facility] Comment on above: Performed By: #### U JESI, BMP #### [facility] [address] [address] [address] Prabhu Lopez EGFR-NON AF SWEDISH >60 Normal >=60 [facility] Comment on above: Performed By: #### U JESI, BMP #### [facility] [address] [address] [address] Prabhu Lopez Globulin (S) [Mass/Vol] 4.8 g/dL Normal [facility] Comment on above: Performed By: #### U JESI, BMP #### [facility] [address] [address] [address] Prabhu Lopez Glucose [Mass/Vol] 96 mg/dL Normal 74-106 [facility] Comment on above: Performed By: #### U JESI, BMP #### [facility] [address] [address] [address] Prabhu Lopez Potassium [Moles/Vol] 4.0 mmol/L Normal 3.5-5.1 [facility] Comment on above: Performed By: #### U JESI, BMP #### [facility] [address] [address] [address] Prabhu Lopez Protein [Mass/Vol] 8.7 g/dL Critically high 6.4-8.2 [facility] Comment on above: Performed By: #### U JESI, BMP #### [facility] [address] [address] [address] Prabhu Lopez Sodium [Moles/Vol] 143 mmol/L Normal 136-145 [facility] Comment on above: Performed By: #### U JESI, BMP #### [facility] [address] [address] [address] Prabhu Lopez Urea nitrogen [Mass/Vol] 13.0 mg/dL Normal 7.0-18.0 [facility] Comment on above: Performed By: #### U JESI, BMP #### [facility] [address] [place] [address] Dr. Prabhu Lopez Urea nitrogen/Creatinine [Mass ratio] 13.8 mg/mg Normal [facility] Comment on above: Performed By: #### U JESI, BMP #### [facility] [address] [place] [address] Dr. Prabhu Lopez PTH INTACTon 08-14-2022 PTH, Intact 17 pg/mL Normal 15-65 [facility] Comment on above: Performed By: #### U JESI, BMP #### [facility] [address] [place] [address] Dr. Prabhu Lopez SODIUM 24 HR URINEon 023 NA, 24 HR UR 111 mmol/24 hr Normal 40-220 [facility] Comment on above: Performed By: #### N A24U, [id number] #### [facility] [address] [place] [address] Dr. Prabhu Lopez Sodium (U) [Moles/Vol] 103 mmol/L Critically high 30-90 [facility] Comment on above: Performed By: #### N A24U, [id number] #### [facility] [address] [place] [address] Dr. Prabhu Lopez TSHon 08-14-2022 TSH 2.531 uIU/mL Normal 0.358-3.740 [facility] Comment on above: Performed By: #### U JESI, BMP #### [facility] [address] [place] [address] Dr. Prabhu Lopez PROF CHEM 8 (BAS METB)on Anion gap [Moles/Vol] 8.9 mmol/L Normal [facility] Comment on above: Performed By: #### U JESI, BMP #### [facility] [address] [place] [address] Dr. Prabhu Lopez Calcium [Mass/Vol] 9.3 mg/dL Normal 8.5-10.1 [facility] Comment on above: Performed By: #### U JESI, BMP #### [facility] [address] [place] [address] Dr. Prabhu Lopez Chloride [Moles/Vol] 108 mmol/L Critically high 98-107 [facility] Comment on above: Performed By: #### U JESI, BMP #### [facility] [address] [address] [address] Prabhu Lopez CO2 [Moles/Vol] 28.5 mmol/L Normal 21.0-32.0 [facility] Comment on above: Performed By: #### U JESI, BMP #### [facility] [address] [address] [address] Prabhu Lopez Creatinine [Mass/Vol] 1.08 mg/dL Critically high 0.55-1.02 [facility] Comment on above: Performed By: #### U JESI, BMP #### [facility] [address] [address] [address] Prabhu Lopez EGFR-AF SWEDISH >60 Normal >=60 [facility] Comment on above: Performed By: #### U JESI, BMP #### [facility] [address] [address] [address] Prabhu Lopez EGFR-NON AF SWEDISH 52 mL/min/1.73m2 Critically low >=60 [facility] Comment on above: Performed By: #### U JESI, BMP #### [facility] [address] [address] [address] Prabhu Lopez Glucose [Mass/Vol] 94 mg/dL Normal 74-106 [facility] Comment on above: Performed By: #### U JESI, BMP #### [facility] [address] [address] [address] Prabhu Lopez Potassium [Moles/Vol] 3.4 mmol/L Critically low 3.5-5.1 [facility] Comment on above: Performed By: #### U JESI, BMP #### [facility] [address] [address] [address] Prabhu Lopez Sodium [Moles/Vol] 142 mmol/L Normal 136-145 [facility] Comment on above: Performed By: #### U JESI, BMP #### [facility] [address] [address] [address] Prabhu Lopez Urea nitrogen [Mass/Vol] 17.0 mg/dL Normal 7.0-18.0 [facility] Comment on above: Performed By: #### U JESI, BMP #### [facility] [address] [place], [place] [address] Dr. Prabhu Lopez Urea nitrogen/Creatinine [Mass ratio] 15.7 mg/mg Normal [facility] Comment on above: Performed By: #### U JESI, BMP #### [facility] [address] [place], [place] [address] Dr. Prabhu Lopez URIC ACID SERUMon 08-12-2022 Urate [Mass/Vol] 4.8 mg/dL Normal 2.6-6.0 [facility] Comment on above: Performed By: #### U JESI, BMP #### [facility] [address] [place], [place] [address] Dr. Prabhu Lopez 36on 08-04-2022 36 Surgery was approved. I called pt to schedule. Pt did not answer LMOV to return call. Normal [facility] Prep for Procedureon 023 Prep for Procedure [id number] Guillermina Lopez 1965 F Date Provider Department Center 08/04/2022 PATRICIA MAK [facility] No family history on file Normal [facility] XR KUB 1 VIEWon 05-23-2022 XR KUB [...] by: WIL KAYE Date: 2022-05-23 09:40 Normal [facility] Covid-19 PCR (CVDTB)on 11-04 SARS-CoV-2 (COVID-19) RNA TANGELA+probe Ql (Unsp spec) Not detected Normal NOT DETECTED [facility] Comment on above: [...] for this test is supported by the [employer] Rep[employer]r of Health and Human Service's declaration that [...] used). Performed By: #### C VDTB #### [facility] [address] [place] [address] Dr. Prabhu Lopez Covid-19 PCR (CVDTB)on SARS-CoV-2 (COVID-19) RNA TANGELA+probe Ql (Unsp spec) Not detected Normal NOT DETECTED [facility] Comment on above: Result Comment: This test is not yet approved or cleared by the [place] FDA. When there are no FDA-approved or cleared tests available, and other criteria are met, FDA can make tests available under an emergency access mechanism called an Emergency Use Authorization (EUA). The EUA for this test is supported by the [place] of Health and Human Service's (HHS's) declaration [...] SARS-CoV-2. Performed By: #### C VDTB #### [facility] [address] [address] [address] Prabhu Lopez B-Type Natriuretic Peptideon 02-12-2021 Natriuretic peptide B (Bld) [Mass/Vol] 36.0 pg/mL Normal 5-100 [facility] Comment on above: Result Comment: PERF ORMED BY: [place] [address] PATHOLOGIST POINTER HELPER NICANOR BALTAZAR M.D. Performed By: #### C BC, PTT, CKMB, BMP, CK, BNP, PT, HS TROP #### [address] Basic Metabolic Panelon Calcium [Mass/Vol] 8.9 mg/dL Normal 8.2-10.2 [facility] Comment on above: Performed By: #### C BC, PTT, CKMB, BMP, CK, BNP, PT, HS TROP #### [address] Chloride [Moles/Vol] 104 mmol/L Normal 95-114 [facility] Comment on above: Performed By: #### C BC, PTT, CKMB, BMP, CK, BNP, PT, HS TROP #### [address] CO2 [Moles/Vol] 24.0 mmol/L Normal 22.0-30.0 [facility] Comment on above: Performed By: #### C BC, PTT, CKMB, BMP, CK, BNP, PT, HS TROP #### [address] Creatinine [Mass/Vol] 1.06 mg/dL High 0.44-1.03 [facility] Comment on above: Performed By: #### C BC, PTT, CKMB, BMP, CK, BNP, PT, HS TROP #### [facility] [address] [place] [address] Creatinine Clr Calc Pharmacy 64.[address] [facility] Comment on above: Result Comment: PERF ORMED BY: [place] [address] PATHOLOGIST POINTER HELPER NICANOR BALTAZAR M.D. Performed By: #### C BC, PTT, CKMB, BMP, CK, BNP, PT, HS TROP #### [address] Estimated GFR ( Najma > 60 [facility] Comment on above: Result Comment: GFR estimated reference range: According to KDOQI guidelines, <60 ml/min/1.73m2 is sufficient to diagnose a patient with chronic kidney disease. Performed By: #### C BC, PTT, CKMB, BMP, CK, BNP, PT, HS TROP #### [address] Estimated GFR (Non- Am 54 [facility] Comment on above: Performed By: #### C BC, PTT, CKMB, BMP, CK, BNP, PT, HS TROP #### [address] Glucose [Mass/Vol] 106 mg/dL High 70-100 [facility] Comment on above: Result Comment: [place] Glucose Reference Range is dependent on time and content of last meal. Glucose of more than 200 mg/dL in a nonstressed, ambulatory subject supports the diagnosis of Diabetes Mellitus. ADA recommended reference range Performed By: #### C BC, PTT, CKMB, BMP, CK, BNP, PT, HS TROP #### [address] Potassium [Moles/Vol] 3.3 mmol/L Low 3.5-5.1 [facility] Comment on above: Performed By: #### C BC, PTT, CKMB, BMP, CK, BNP, PT, HS TROP #### [address] Sodium [Moles/Vol] 138 mmol/L Normal 136-146 [facility] Comment on above: Performed By: #### C BC, PTT, CKMB, BMP, CK, BNP, PT, HS TROP #### [address] Urea nitrogen [Mass/Vol] 11 mg/dL Normal 9-23 [facility] Comment on above: Performed By: #### C BC, PTT, CKMB, BMP, CK, BNP, PT, HS TROP #### [address] Complete Blood Count Auto Di ffon 02-12-2021 Basophils (Bld) [#/Vol] 0.1 10*3/uL Normal 0.0-0.2 [facility] Comment on above: Result Comment: PERF ORMED BY: [place] [address] PATHOLOGIST POINTER HELPER NICANOR BALTAZAR M.D. Performed By: #### C BC, PTT, CKMB, BMP, CK, BNP, PT, HS TROP #### [address] Basophils/100 WBC (Bld) 1.2 % Normal . [facility] Comment on above: Performed By: #### C BC, PTT, CKMB, BMP, CK, BNP, PT, HS TROP #### [address] Eosinophils (Bld) [#/Vol] 0.2 10*3/uL Normal 0.0-0.45 [facility] Comment on above: Performed By: #### C BC, PTT, CKMB, BMP, CK, BNP, PT, HS TROP #### [address] Eosinophils/100 WBC (Bld) 3.2 % Normal . [facility] Comment on above: Performed By: #### C BC, PTT, CKMB, BMP, CK, BNP, PT, HS TROP #### [address] Erythrocyte distribution width (RBC) [Ratio] 13.5 % Normal 11.9-15.3 [facility] Comment on above: Performed By: #### C BC, PTT, CKMB, BMP, CK, BNP, PT, HS TROP #### [address] Hematocrit (Bld) [Volume fraction] 36.8 % Normal 34.0-46.4 [facility] Comment on above: Performed By: #### C BC, PTT, CKMB, BMP, CK, BNP, PT, HS TROP #### [address] Hemoglobin (Bld) [Mass/Vol] 12.2 g/dL Normal 11.8-15.4 [facility] Comment on above: Performed By: #### C BC, PTT, CKMB, BMP, CK, BNP, PT, HS TROP #### [address] Lymphocytes (Bld) [#/Vol] 2.3 10*3/uL Normal 1.00-4.8 [facility] Comment on above: Performed By: #### C BC, PTT, CKMB, BMP, CK, BNP, PT, HS TROP #### [address] Lymphocytes/100 WBC (Bld) 37.1 % Normal . [facility] Comment on above: Performed By: #### C BC, PTT, CKMB, BMP, CK, BNP, PT, HS TROP #### [address] MCH (RBC) [Entitic mass] 29.5 pg Normal 24.7-34.3 [facility] Comment on above: Performed By: #### C BC, PTT, CKMB, BMP, CK, BNP, PT, HS TROP #### [address] MCV (RBC) [Entitic vol] 89.0 fL Normal 80-100 [facility] Comment on above: Performed By: #### C BC, PTT, CKMB, BMP, CK, BNP, PT, HS TROP #### [address] Mean Corpuscular HGB Conc 33.2 g/dL Normal 32.0-35.0 [facility] Comment on above: Performed By: #### C BC, PTT, CKMB, BMP, CK, BNP, PT, HS TROP #### [place] [address] [place] Monocytes (Bld) [#/Vol] 0.5 10*3/uL Normal 0.0-0.8 [facility] Comment on above: Performed By: #### C BC, PTT, CKMB, BMP, CK, BNP, PT, HS TROP #### [address] Monocytes/100 WBC (Bld) 8.7 % Normal . [facility] Comment on above: Performed By: #### C BC, PTT, CKMB, BMP, CK, BNP, PT, HS TROP #### [address] Neutrophils (Bld) [#/Vol] 3.1 10*3/uL Normal 1.8-7.7 [facility] Comment on above: Performed By: #### C BC, PTT, CKMB, BMP, CK, BNP, PT, HS TROP #### [address] Neutrophils/100 WBC (Bld) 49.8 % Normal . [facility] Comment on above: Performed By: #### C BC, PTT, CKMB, BMP, CK, BNP, PT, HS TROP #### [place] [address] [place] Nucleated RBC/100 WBC (Bld) [Ratio] 0.0 % Normal 0-0.5 [facility] Comment on above: Performed By: #### C BC, PTT, CKMB, BMP, CK, BNP, PT, HS TROP #### [place] [address] [place] Platelet mean volume (Bld) [Entitic vol] 9.7 fL Normal 6.3-10.7 [facility] Comment on above: Performed By: #### C BC, PTT, CKMB, BMP, CK, BNP, PT, HS TROP #### [address] [place] [address] [place] Platelets (Bld) [#/Vol] 219 10*3/uL Normal 150-450 [facility] Comment on above: Performed By: #### C BC, PTT, CKMB, BMP, CK, BNP, PT, HS TROP #### [address] RBC (Bld) [#/Vol] 4.13 10*6/uL Normal 3.60-5.00 [facility] Comment on above: Performed By: #### C BC, PTT, CKMB, BMP, CK, BNP, PT, HS TROP #### [address] WBC (Bld) [#/Vol] 6.3 10*3/uL Normal 4.5-11.0 [facility] Comment on above: Performed By: #### C BC, PTT, CKMB, BMP, CK, BNP, PT, HS TROP #### [address] Creatine Kinaseon 02-12-2021 CK [Catalytic activity/Vol] 178 U/L Normal 22-269 [facility] Comment on above: Performed By: #### C BC, PTT, CKMB, BMP, CK, BNP, PT, HS TROP #### [address] Creatinine Kinase MBon 02-12 CK.MB [Mass/Vol] 2.5 ng/mL Normal 0.6-6.3 [facility] Comment on above: Performed By: #### C BC, PTT, CKMB, BMP, CK, BNP, PT, HS TROP #### [address] CKMB Relative Index 1.4 % Normal 0.00-2.50 [facility] Comment on above: Performed By: #### C BC, PTT, CKMB, BMP, CK, BNP, PT, HS TROP #### [place] [address] [place] Partial Thromboplastin Timeo n 02-12-2021 aPTT Coag (Bld) [Time] 29.3 s Normal 25.1-36.5 [facility] Comment on above: Result Comment: PERF ORMED BY: [place] [address] PATHOLOGIST POINTER HELPER NICANOR BALTAZAR M.D. Performed By: #### C BC, PTT, CKMB, BMP, CK, BNP, PT, HS TROP #### [address] Prothrombin Time INRon 02-12 INR Coag (PPP) [Relative time] 1.0 {INR} Normal [facility] Comment on above: Result Comment: INR Therapeutic [...] BMP, CK, BNP, PT, HS TROP #### [address] PT Coag (PPP) [Time] 11.5 s Normal 9.0-12.9 [facility] Comment on above: Performed By: #### C BC, PTT, CKMB, BMP, CK, BNP, PT, HS TROP #### [address] Troponin I High Sensitivityo n 02-12-2021 Troponin I High Sensitivity 5 pg/mL Normal 0-15 [facility] Comment on above: Result Comment: PERF ORMED BY: [place] [address] PATHOLOGIST POINTER HELPER NICANOR BALTAZAR M.D. Performed By: #### C BC, PTT, CKMB, BMP, CK, BNP, PT, HS TROP #### [address] XR chest 2V*on 02-12-2021 XR chest 2V* [facility] [address] [address] XRay Report Signed Patient: Alyssa Lopez MR#: [id number] : 1965 Acct:[id number] Age/Sex: 55 / F ADM Date: 02/11/21 Loc: ER Room: Type: [facility] ER Attending Dr: Ordering Provider: [...] Reid Graves M.D.02/12/2021 9:18 AM Dictation Location: [place] [address] Transcribed By: [facility] 02/12/21917 Dictated By: Reid Graves DO 02/12/21914 Signed By: 02/12/[address] [facility] ECG 12 lead ECGon 02-11-2021 ECG 12 lead ECG [facility] [address] [address] Electrocardiograph Report Signed Patient: Alyssa Lopez MR#: [id number] : 1965 Acct:[id number] Age/Sex: 55 / F ADM Date: 02/11/21 Loc: ER Room: Type: [facility] ER Attending Dr: Ordering Provider: Stefan [...] ECGs available Confirmed by Stefan Carolina DO ([id number]) on 02/11/2021 11:41:46 PM Referred By: Electronically Signed By:Stefan Carolina DO Transcribed By: MUS Signed By Stefan Carolina DO 02/[address] [facility] Vital Signs Date Time Vital Sign Value Performing Clinician Naomii steven 05-26-2022 08:49-0500 Blood Pressure Location Hoda SALMON [facility] 05-26-2022 08:49-0500 Diastolic blood pressure 74 mm[Hg] Hoda SALMON [facility] 05-26-2022 08:49-0500 Heart rate 70 /min Hoda SALMON [facility] 05-26-2022 08:49-0500 Respiratory rate 16 /min Hoda SALMON [facility] 05-26-2022 08:49-0500 Systolic blood pressure 128 mm[Hg] Hoda SALMON [facility] Encounters Encounter Date Encounter Type Care Provider Facility Start: 09-29-2023 Telephone encounter Ines Coker MD Work Phone: Neurology Comment on above: EMG- FAXED RESULTS Start: 09-29-2023 End: 09-29-2023 ambulatory INES COKER [facility] Start: 09-29-2023 End: 09-29-2023 Patient encounter procedure Emg 2 Neur [facility] (Max Weight 400) Neurology [facility] Start: 08-28-2023 Telephone encounter Ines Coker MD Work Phone: Neurology Comment on above: EMG Instructions Start: 08-25-2023 Orders Only Laine pimentel CNP Work Phone: Neurology Comment on above: Sprain of left wrist , sequela (Primary Dx); Carpal tunnel syndrome of left wrist Start: 08-20-2023 Telephone encounter Lucio prasad MD Work Phone: Orthopaedic Surgery [facility] Start: 08-13-2023 End: 08-13-2023 Patient encounter procedure Lucio Mixon MD Work Phone: Orthopaedic Surgery [facility] Comment on above: Numbness and tinglin g in left hand (Primary Dx) Start: 08-13-2023 End: 08-13-2023 ambulatory LAINE BÁRBARA Facility:[facility] Start: 07-31-2023 Orders Only Lucio Mixon MD Work Phone: Referring Physician Comment on above: Pain (Primary Dx) Start: 07-06-2023 End: 07-07-2023 ambulatory Hoda SALMON Facility:[facility] Start: 07-06-2023 End: 07-06-2023 Patient encounter procedure Hoda SALMON [facility] Start: 06-30-2023 ambulatory [facility] Start: 04-22-2023 ambulatory [facility] Start: 02-10-2023 ambulatory [facility] Start: 11-26-2022 ambulatory [facility] Start: 10-15-2022 End: 10-15-2022 ambulatory [facility] Start: 10-01-2022 End: 10-01-2022 ambulatory [facility] Start: 08-15-2022 Encounter for genera l adult medical examination without abnormal findings DR SHAI LAU . [facility] Start: 08-14-2022 End: 08-15-[address] SHAI LAU . Facility: Start: 08-14-2022 End: 08-15-2022 Encounter for general adult medical examination without abnormal findings DR SHAI LAU . Facility:[facility] Start: 08-12-2022 End: 08-13-[address] HODA SALMON . Facility:[facility] Start: 05-26-2022 End: 05-26-2022 Patient encounter procedure Hoda SALMON [facility] Start: 05-22-2022 End: 05-23-[address] HODA SALMON . Facility:[facility] Start: 11-15-2021 End: 11-15-[address] SHAI LAU . Facility:[facility] Start: 11-12-2021 End: 11-12-[address] SHAI LAU . Facility:[facility] Start: 07-02-2021 End: 07-02-2021 Lab Drop off EMERITA Yosef PRINCE [facility] Start: 07-02-2021 End: 07-02-2021 Patient encounter procedure Toni Carrera Jr. [facility] Procedures Date Procedure Procedure Detail Performing Clinician Start: 09-29-2023 Nerve conduction mary ann dies 5-6 studies Ines Coker MD Work Phone: Start: 02-10-2023 Follow-up visit Follow-up [facility] Start: 03-05-2017 Extracorporeal shock wave lithotripsy of calculus of kidney Toni Carrera Jr. Start: 04-06-2016 Procedure on back Akil Carrera Jr. Start: 04-06-2015 Decompression of med barron nerve Toni Carrera Jr. Start: 04-06-1989 Tonsillectomy Toni de la cruz Jr. Plan of Treatment Date Care Activity Detail Author Start: 12-06-2023 Influenza vaccination Influenz a Vaccine (Season Ended) [facility] Start: 09-29-2023 End: 09-29-2023 ambulatory 09/29/2023 9:25 AM EDT Procedure Neurology EMG [facility] [address] [place] [address] EMG STANDARD Neurology EMG [facility] Comment on above: EMG STANDARD Start: 08-13-2023 End: 08-13-2023 Patient encounter procedure Xray [facility] Comment on above: sprain of left wrist , alin is coming in for seccond opinion, had carple tunnel surgery on this wrist october 02, 2022 Start: 04-06-2023 Behavioral Health Screening Behavioral Health Screening [facility] Start: 12-05-2022 Covid-19 Vaccine () Covid-19 Vaccine () [facility] Start: 12-05-2022 Covid-19 Vaccine () Covid-19 Vaccine () [facility] Start: 06-09-2015 Shingrix Vaccine (1 of 2) Shingrix Vaccine (1 of 2) [facility] Start: 2010 Diabetes Screening Diabetes Screenin g [facility] Start: 2010 Lipid panel Lipid Screening [facility] Start: 2010 Screening for malign ant neoplasm of colon [facility] Start: 2005 Screening for malign ant neoplasm of breast Mammogram Screening [facility] Start: 06-09-1995 Screening for malign ant neoplasm of cervix HPV Testing [facility] Start: 1986 Screening for malign ant neoplasm of cervix [facility] Start: 1984 Hepatitis B Vaccine (1 of 3 - 19+ 3-dose series) Hepatitis B Vaccine (1 of 3 - 19+ 3-dose series) [facility] Start: 1984 Urine microalbumin profile DTaP,Tdap,Td Vaccine (1 - Tdap) [facility] Start: 06-09-1983 Hepatitis C screening Hepatitis C Sc kailey [facility] Start: 06-09-1983 HIV screening HIV Screening [facility] End: 08-24-2024 EMG(NEURO/NI) EMG(NEURO/NI) EMG Routine Sprain of left wrist, sequela Carpal tunnel syndrome of left wrist 1 Occurrences starting 08/25/2023 until 08/24/2024 [facility] Work Phone: Comment on above: 1 Occurrences starti ng 08/25/2023 until 08/24/2024 End: 08-29-2024 XR Wrist - left 4 Views XR WRIST INJURY 4V PA/LAT/OBL/SCAPH LEFT Radiology Routine Pain 1 Occurrences starting 07/31/2023 until 08/29/2024 [facility] Comment on above: 1 Occurrences starti ng 07/31/2023 until 08/29/2024 End: 08-29-2024 XR Wrist - left PA and Lateral and Oblique XR WRIST GENERAL 3V PA/LAT/OBL LEFT Radiology Routine Pain 1 Occurrences starting 07/31/2023 until 08/29/2024 [facility] Work Phone: Comment on above: 1 Occurrences starti ng 07/31/2023 until 08/29/2024 Immunizations Immunization Date Immunization Notes Care Provider Mihai bradshaw 02-26-2022 influenza virus vaccine, unspecified formulation Lucio Mixon MD Work Phone: [facility] 08-08-2020 SARS-CoV-2 (COVID-19 ) Ad26 vaccine, recombinant Toni Carrera Jr. [facility] 07-18-2020 SARS-CoV-2 (COVID-19 ) Ad26 vaccine, recombinant Toni Carrera Jr. [facility] Payers Date Payer Category Payer Private Health Insurance [facility] GEHA CHOICE PLUS [id number] 2023-Present [phone] [address] [address] [place] [address] PPO [id number] 2019 Unknown [facility] DEPT OF L [employer] FECA [id number] 2019-Present [phone] [address] [place] [address] WC [id number] 2019 Unknown [id number] 1965 Unknown [id number] 1965 Unknown [id number] 1965 Unknown [id number] .[id number] 1965 Unknown [id number] .[id number] 1965 Unknown [id number] .[id number] 1965 Unknown [id number] .[id number] 1965 Unknown [id number] 1959 Unknown [id number] Social History Date Type Detail Facility Start: 07-06-2014 End: 05-13-2021 Tobacco smoking status Never smoked tobacco (finding) [facility] Start: 08-13-2023 Sex Assigned At Female [facility] Start: 07-28-2014 End: 08-13-2023 Alcohol intake Current drinker of alcohol (finding) [facility] Start: 1965 Sex Assigned At Not on file [facility] Start: 08-13-2023 History of Social function [facility] National Score (1-10 0), lower number is lower risk 46 [facility] Functional Status Date Assessment Result Facility 05-26-2022 Functional Status N/A [facility] Clinical Notes 05-26-2022 to 09-29-2023 Telephone Encounter - Neema Campos - 09/29/2023 2:14 PM EDTTelephone Encounter - Neema Campos - 09/29/2023 2:14 PM Ramsey Lopez MD - 09/29/2023 9:05 AM EDT Note Date & Type Note Facility 09-29-2023 Telephone encounter Note Results from EMG performed on 09/29/2023 were faxed to Laine Granger at fax number on 09/29/2023. Fax confirmation received. [facility] 09-29-2023 Miscellaneous Notes Results from EMG performed on 09/29/2023 were faxed to Laine Granger at fax number on 09/29/2023. Fax confirmation received. documented in this encounter [facility] 09-29-2023 History of Presen t illness Narrative UNIVERSAL PROTOCOL / SAFETY CHECKLIST Procedure to be Performed: EMG Sign In: A Moment of CARE was completed. Personnel directly involved with the procedure wore the appropriate PPE (Personal Protective Equipment). Patient/Surrogate Stated/Verified: PATIENT VERIFIED(optional for EMERGENT procedures): Patient name, Date of , Relevant allergies, and The intended procedure Time Out Communication: Intended patient and procedure match the source documents. Correct side/site marked and visible. Sign Out: SIGN OUT (optional for EMERGENT procedures): Post-procedure follow-up management communicated and Plan of Care Visit completed when applicable. Neema Campos EMG Tech Ramsey Ndiaye MD Neuromuscular Medicine (NM) Staff [facility] documented in this encounter [facility] 09-29-2023 Note HNO ID: [id number] Author: RAMSEY NDIAYE MD Service: ? Author Type: Physician Type: Progress Notes Filed: 09/29/2023 10:16 Note Text: UNIVERSAL PROTOCOL / SAFETY CHECKLIST Procedure to be Performed: EMG Sign In: A Moment of CARE was completed. Personnel directly involved with the procedure wore the appropriate PPE (Personal Protective Equipment). Patient/Surrogate Stated/Verified: PATIENT VERIFIED(optional for EMERGENT procedures): Patient name, Date of , Relevant allergies, and The intended procedure Time Out Communication: Intended patient and procedure match the source documents. Correct side/site marked and visible. Sign Out: SIGN OUT (optional for EMERGENT procedures): Post-procedure follow-up management communicated and Plan of Care Visit completed when applicable. Neema Campos EMG Tech Ramsey Ndiaye MD Neuromuscular Medicine (NM) Staff [facility], [facility] 08-28-2023 Telephone encounter Note Spoke with Alyssa Lopez on 08/27 in regards to getting scheduled for their EMG appointment. Patient indicated that they are taking the medication Eliquis. Instructed that this medication is to be held for 24 hours prior to testing. Patient is to reach out to prescribing physician to ensure that it is safe to hold prior to testing. Patient expressed understanding with these instructions. [facility] 08-28-2023 Miscellaneous Notes Spoke with Alyssa Lopez on 08/27 in regards to getting scheduled for their EMG appointment. Patient indicated that they are taking the medication Eliquis. Instructed that this medication is to be held for 24 hours prior to testing. Patient is to reach out to prescribing physician to ensure that it is safe to hold prior to testing. Patient expressed understanding with these instructions. documented in this encounter [facility] 08-24-[address] Mixon's note still not completed, I did call Nayeli at [employer]. We did discuss that the patient needs to find their old nerve conduction study and get a new nerve conduction study (Study can be request by POR) and then should follow-up with Dr. Mixon to discuss both. [facility] Work Phone: 08-24-[address] Mixon's note still not completed, I did call Nayeli at occupational health. We did discuss that the patient needs to find their old nerve conduction study and get a new nerve conduction study (Study can be request by POR) and then should follow-up with Dr. Mixon to discuss both. Name of Caller: Nayeli at [facility] Relationship to patient: Last visit in this department: 08/13/2023 Reason for Call: Other : Nayeli calling from Occup[facility] to get office notes and any test results if applicable for the 08/13/23 visit. Please fax to [phone] Callback number: [phone] Fax Number (if necessary): [phone] Additional info if needed (Prior Auth #, Claim #, etc ): N/A Karly Leija documented in this encounter [facility] 08-20-2023 Telephone encounter Note Name of Caller: Nayeli at [facility] Relationship to patient: Last visit in this department: 08/13/2023 Reason for Call: Other : Nayeli calling from Occupational [facility] to get office notes and any test results if applicable for the 08/13/23 visit. Please fax to [phone] Callback number: [phone] Fax Number (if necessary): [phone] Additional info if needed (Prior Auth #, Claim #, etc ): N/A Karly Leija [facility] 08-13-2023 Note HNO ID: [id number] Author: LUCIO MIXON MD Service: ? Author Type: Physician Type: Progress Notes Filed: 09/08/2023 16:53 Note Text: Lucio Mixon MD Department of Orthopaedics Orthopaedic Surgery [facility] [address] [address] [facility] [address] Dept: [phone] Dept August 13, 2023 CHIEF COMPLAINT: New and Pain of the Left Wrist HPI Patient is here today for left wrist pain/numbnessAND tingling. She sustained an injury at work in 2019, and has been dealing with pain since. She has a history of CTR in September of 2022 that did not improve her symptoms, still has numbness pain and tingling. Tried one cortisone injection this past April, but pain improved for only a few days. ASSESSMENT: R20.0, R20.2 Numbness and tingling in left hand (primary encounter diagnosis) PLAN: SHe's going to track down her origional EMG test. SHe'll have her [facility] POR get an c9 for a new nerve test. She'll share both of those with me and then we'll develop a game plan. FOLLOW UP INSTRUCTIONS: She either has recurrent CTS, which is not common, but possible. It is also possible to be of a different etiology with cervical involvement, or other. OBJECTIVE: Ms. Alyssa Lopez is a pleasant 58 year old in no apparent distress. Gen:There were no vitals taken for this visit. nl development, no deformities ENT: Normocephalic, normal hearing, moist mucosa CV: Pulses:Radial= 2+ and symmetric, capillary refill < 2 secs, no peripheral edema/varicosities Skin: no rash, bruising or lesions. Good turgor. Psych: cooperative and appropriate, alert and oriented x 3, good mood and affect. Musculoskeletal: Prior incision noted without any concerns. Mildly positive tinel's at the wrist, neg MNCT. Sensation intact, grossly to light touch. Mild swelling over the thumb, MCP joint with tenderness and crepitus on Grind testing. IMAGING: TECHNIQUE: 3 views left wrist COMPARISON: None. RESULT: There is postsurgical change of plate and screw fixation of fourth metacarpal with intact hardware with satisfactory alignment. No acute fracture identified. There is moderate first CMC joint degenerative change with joint space narrowing and osteophyte formation along with small adjacent corticated ossicles. Tiny osteophyte formation first metacarpal head without narrowing of the first MCP joint. Mild to moderate degenerative change index finger DIP joint. No obvious focal soft tissue swelling. Supporting Subjective Information Below: Past Medical History: PAST MEDICAL HISTORY Diagnosis Date Concussion Past Surgical History: PAST SURGICAL HISTORY Procedure Laterality Date PAST SURGICAL HISTORY OF left hand surgery TONSILLECTOMY HX Family History: FAMILY HISTORY Problem Relation Age of Onset Cataract Father Social History: Social History Tobacco Use Smoking status: Never Substance Use Topics Alcohol use: Yes Drug use: No Medications: Current Outpatient Medications Medication Sig ONE DAILY MULTIVITAMIN ORAL Take by mouth. [place]-3 Fatty Acids-Vitamin E (FISH OIL) 1,000 mg cap Take 1 capsule by mouth. amitriptyline (ELAVIL) 10 mg tablet Take 10 mg by mouth daily at bedtime. metoclopramide HCl (REGLAN) 5 mg tablet Take 5 mg by mouth daily at bedtime. No current facility-administered medications for this visit. Allergies: Bactrim [Sulfamethoxazole-Trimethoprim] and Phenobarbital ROS: General (negative for fatigue, malaise, weight loss/gain) HEENT (negative for headache, earache, recent vision changes, sinus pain, sore throat) Respiratory (no recent shortness of breath, hemoptysis) CV (negative for chest tightness, palpitations) Musculoskeletal (see HPI) Psych (no depression, anxiety) REFERRING PHYSICIAN: Consultation requested by Laine Granger CNP for an opinion regarding hand numbness-S/P surgery. My final recommendations will be communicated back to the requesting physician by way of shared Medical record or letter to requesting physician via US mail. Laine Granger CNP [address] [facility] [address] Lucio Mixon MD [facility] 08-13-2023 History of Presen t illness Narrative Lucio Mixon MD Department of Orthopaedics Orthopaedic Surgery [facility] [address] [address]ulema Rahman [facility] [address] Dept: [phone] Dept August 13, 2023 CHIEF COMPLAINT: New and Pain of the Left Wrist HPI Patient is here today for left wrist pain/numbness& tingling. She sustained an injury at work in 2019, and has been dealing with pain since. She has a history of CTR in September of 2022 that did not improve her symptoms, still has numbness pain and tingling. Tried one cortisone injection this past April, but pain improved for only a few days. ASSESSMENT: R20.0, R20.2 Numbness and tingling in left hand (primary encounter diagnosis) PLAN: SHe's going to track down her origional EMG test. SHe'll have her C POR get an c9 for a new nerve test. She'll share both of those with me and then we'll develop a game plan. FOLLOW UP INSTRUCTIONS: She either has recurrent CTS, which is not common, but possible. It is also possible to be of a different etiology with cervical involvement, or other. OBJECTIVE: Ms. Alyssa Lopez is a pleasant 58 year old in no apparent distress. Gen:There were no vitals taken for this visit. nl development, no deformities ENT: Normocephalic, normal hearing, moist mucosa CV: Pulses:Radial= 2+ and symmetric, capillary refill < 2 secs, no peripheral edema/varicosities Skin: no rash, bruising or lesions. Good turgor. Psych: cooperative and appropriate, alert and oriented x 3, good mood and affect. Musculoskeletal: Prior incision noted without any concerns. Mildly positive tinel's at the wrist, neg MNCT. Sensation intact, grossly to light touch. Mild swelling over the thumb, MCP joint with tenderness and crepitus on Grind testing. IMAGING: TECHNIQUE: 3 views left wrist COMPARISON: None. RESULT: There is postsurgical change of plate and screw fixation of fourth metacarpal with intact hardware with satisfactory alignment. No acute fracture identified. There is moderate first CMC joint degenerative change with joint space narrowing and osteophyte formation along with small adjacent corticated ossicles. Tiny osteophyte formation first metacarpal head without narrowing of the first MCP joint. Mild to moderate degenerative change index finger DIP joint. No obvious focal soft tissue swelling. Supporting Subjective Information Below: Past Medical History: PAST MEDICAL HISTORY Diagnosis Date Concussion Past Surgical History: PAST SURGICAL HISTORY Procedure Laterality Date PAST SURGICAL HISTORY OF left hand surgery TONSILLECTOMY HX Family History: FAMILY HISTORY Problem Relation Age of Onset Cataract Father Social History: Social History Tobacco Use Smoking status: Never Substance Use Topics Alcohol use: Yes Drug use: No Medications: Current Outpatient Medications Medication Sig ONE DAILY MULTIVITAMIN ORAL Take by mouth. [place]-3 Fatty Acids-Vitamin E (FISH OIL) 1,000 mg cap Take 1 capsule by mouth. amitriptyline (ELAVIL) 10 mg tablet Take 10 mg by mouth daily at bedtime. metoclopramide HCl (REGLAN) 5 mg tablet Take 5 mg by mouth daily at bedtime. No current facility-administered medications for this visit. Allergies: Bactrim [Sulfamethoxazole-Trimethoprim] and Phenobarbital ROS: General (negative for fatigue, malaise, weight loss/gain) HEENT (negative for headache, earache, recent vision changes, sinus pain, sore throat) Respiratory (no recent shortness of breath, hemoptysis) CV (negative for chest tightness, palpitations) Musculoskeletal (see HPI) Psych (no depression, anxiety) REFERRING PHYSICIAN: Consultation requested by Laine Granger CNP for an opinion regarding hand numbness-S/P surgery. My final recommendations will be communicated back to the requesting physician by way of shared Medical record or letter to requesting physician via US mail. Laine Granger CNP [address] [place], [place] [id number] Lucio Mixon MD documented in this encounter [facility] 08-13-2023 Note HNO ID: [id number] Author: CONSTANCE VERMA RT(R) Service: ? Author Type: Technologist Type: Progress Notes Filed: 08/13/2023 09:25 Note Text: Radiology Service Progress Note PATIENT NAME: Alyssa Lopez DATE OF SERVICE: August 13, 2023 TIME: 9:24 AM PATIENT IDENTITY VERIFICATION COMPLETED USING TWO (2) IDENTIFIERS: Name and Date of confirmed by patient verbally. FALL SCREENING: Has the patient had 2 falls in the last year or 1 fall with injury or currently using an Ambulatory Assistive Device (Walker, Cane, Wheelchair, Crutches, etc.)? No PATIENT GENDER DATA: Female. status: : No status: NO. PATIENT RELEVANT IMPLANT DATA REVIEWED: Not Applicable PATIENT PRESENTS WITH AN IMPLANTABLE OR ATTACHED FIBERGLASS TUBE MOLDER: No RADIOLOGY DEPARTMENT: General X-ray: Exam(s) Completed: Upper Extremity X-Ray(s): Wrist, left PERIPHERAL IV DATA: Not applicable SIGNED BY: RT Brian(R) August 13, 2023 9:24 AM [facility] 04-22-2023 Note Patient ID: Alyssa Lopez is a 57 y.o. female. Steroid [...] to verify the correct patient, procedure, equipment, donor support technician and site/side marked as required. [facility] 02-10-2023 Note Orthopedic Surgery Subjective 10/01/2022 Carpal [...] disease) Kidney stone Migraines Objective Left Hand: Pcdgzvvgck-ahjj-dgbmnc scar from carpal tunnel incision. Thumb: normal A1 winnie and AROM, Index finger: normal A1 winnie and AROM, Long finger: normal A1 winnie and AROM, Ring finger: normal A1 winnie and AROM, and Small finger: normal A1 winnie and AROM Strength: auto cleaner 4+/5, thumb 4+/5, interossei 5/5 Sensation: intact over radial and ulnar nerve distributions. Tinel (+) at carpal tunnel Carpal compression test (+) Tinel (+) at cubital tunnel. Positive left CMC grind test Cardiovascular: Well-perfused digits Assessment/Plan Alyssa Lopez is a 57 y.o. year old [...] and see her back at that time. [facility] 11-26-2022 Note Attestation signed by Max Kowalski [...] disease) Kidney stone Migraines Objective Left Hand: Kcifejallp-hhal-xwgasp scar from carpal tunnel incision. Thumb: normal A1 winnie and AROM, Index finger: normal A1 winnie and AROM, Long finger: normal A1 winnie and AROM, Ring finger: normal A1 winnie and AROM, and Small finger: normal A1 winnie and AROM Strength: auto cleaner 5/5, thumb 5/5, interossei 5/5 Sensation: intact over radial nerve distributions. Diminished sensation to light touch in ulnar nerve median distributions. Tinel (+) at carpal tunnel Carpal compression test (+) Tinel (+) at cubital tunnel Cardiovascular: Well-perfused digits Assessment/Plan Alyssa Lopez is a 57 y.o. year old [...] SHERIFF MD Orthopedic Surgery, PGY-2 Ortho Pager [phone] 11/26/22 3:14 PM [facility] 10-15-2022 Note Attestation signed by Max Kowalski [...] intact distally - Brisk capillary refill Assessment/Plan Alyssa Lopez is a 57 y.o. year old female s/p Carpal Tunnel Release - Left (10/01/2022) -Scar massage and lotion -C9 for Carpal tunnel syndrome of L hand s/p CTR -RTC in 6 weeks or as needed GIGI SHERIFF MD Orthopedic Surgery, PGY-2 Ortho Pager [phone] 10/15/22 1:20 PM [facility] 10-01-2022 Note Patient: Guillermina curry Procedure Summary Date: 10/01/22 Room / Location: [facility] OR [address] [place] [address] OR Anesthesia Start: 833 Anesthesia Stop: 899 [...] per anesthesia protocol. No notable events documented. [facility] 10-01-2022 Note Patient: Guillermina curry Procedure Information Date/Time: 10/01/22829 Procedure: CARPAL TUNNEL RELEASE (Left: Hand) Location: [address] Surgeons: Max Kowalski MD Relevant [...] Plan discussed with attending. Additional Equipment Requests [facility] 05-26-2022 [facility] Discharg e instructions Follow Up Care 05/26/2022 09:33:22 With:JEFFREY AVELAR, Hoda Rios, URL Address: [facility] [address] [place] [phone] When: Unknown [facility] 05-26-2022 Hospital Discharg e instructions Patient Education 05/26/2022 08:10:32 Dietary Guidelines [...] include: ?Spinach. ?Rhubarb. ?Beets. ?Potato chips and uzbek fries. ?Nuts. If you regularly take a diuretic medicine, make sure to eat at least 1 2 fruits or vegetables high in potassium each day. These include: ?Avocado. ?Banana. ?Keller, prune, carrot, or tomato juice. ?Baked potato. [...] Casseroles. Pizza. Lasagna. Frozen meals. Potato chips. Chinese fries. Summary You can reduce your risk [...] 07/18/2011 Document Revised: 07/13/2019 Document Reviewed: 03/03/2017 Erly Patient Education 2020 [employer]. Follow Up Care 05/13/2021 09:33:00 With:Hoda SALMON MD, URL Address: [facility] [address], [place] [address]- When: Unknown [facility] Evaluation + Plan note Future Appointments Appointment Date:05/26/2022 08:45:00 AM Scheduled Provider:Hoda SALMON MD Location:[facility] Appointment Type:URO Office Visit [facility] Evaluation + Plan note Future Appointments Appointment Date:05/26/2022 08:45:00 AM Scheduled Provider:Hoda SALMON MD Location:[facility] Appointment Type:URO Office Visit Diagnostic Tests PendingUrine Culture 07/02/21 [facility] Evaluation + Plan note Future Appointments Appointment Date:05/29/2023 08:00:00 AM Scheduled Provider:Hoda SALMON [facility] Type:[facility]O Office Visit [facility] Evaluation note Diagnosis Pain- Primary Generalized pain [facility]* Diagnosis Sprain of left wrist, sequela- Primary Carpal tunnel syndrome of left wrist Carpal tunnel syndrome documented in this encounter [facility] note* Diagnosis Numbness and tingling in left hand- Primary Disturbance of skin sensation documented in this encounter [facility] note* Diagnosis Sprain of left wrist, sequela Carpal tunnel syndrome of left wrist Carpal tunnel syndrome [facility] Narrative No data available for this section [facility] Hospital Discharge instructions No data available for this section [facility] progress note No data available for this section [facility] Fixber reason for referral (narrative)* Diagnostic Procedure Only (Routine) - Pending Review Specialty Diagnoses / Procedures Referred By Contac t Referred To Contact XR IMAGING Diagnoses Pain Procedures XR WRIST INJURY 4V PA/LAT/OBL/SCAPH LEFT RADEX WRIST COMPLETE MINIMUM 3 VIEWS Lucio Mixon MD [address] [place] [phone] [place] [address] Referral ID Status Reason Start Date Expiration Date Visits Requested Visits Authorized [id number] Pending Review Auto-Generat ed Referral 07/31/2023 08/29/2024 1 1 * Diagnostic Procedure Only (Routine) - Authorized Specialty Diagnoses / Procedures Referred By Contac t Referred To Contact XR IMAGING Diagnoses Pain Procedures XR WRIST GENERAL 3V PA/LAT/OBL LEFT RADEX WRIST COMPLETE MINIMUM 3 VIEWS Lucio Mixon MD [address] [place] [phone] [place] [address] Referral ID Status Reason Start Date Expiration Date Visits Requested Visits Authorized [id number] Authorized Auto-Generat ed Referral 07/31/2023 08/29/2024 1 1 [facility] for referral (narrative)* Outpatient Procedure (Routine) - Pending Review Specialty Diagnoses / Procedures Referred By Janessa harris Referred To Contact [facility] Diagnoses Sprain of left wrist, sequela Carpal tunnel syndrome of left wrist Procedures EMG(NEURO/NI) NERVE CONDUCTION STUDIES 9-10 STUDIES Ines Coker MD [address] [place] [address] [facility] [address] [place] [id number] Referral ID Status Reason Start Date Expiration Date Visits Requested Visits Authorized [id number] Pending Review Auto-Generat ed Referral 08/25/2023 08/24/2024 1 1 [facility] Summary Purpose Family History No Family History Records FoundNo Family History Records FoundNo Family History Records Found No data available for this section No Family History Records FoundNo Family History Records Found Advance Directives No Advanced Directives Records FoundNo Advanced Directives Records FoundNo Advanced Directives Records FoundNo Advanced Directives Records FoundNo Advanced Directives Records Found Additional Source Comments INFORMATION SOURCE (unrecogn ized section and content) DATE CREATED AUTHOR 05/29/2021 [facility] DATE CREATED AUTHOR AUTHOR'S ORGANIZ ATION 08/21/2022 [facility] DATE CREATED AUTHOR AUTHOR'S ORGANIZ ATION 07/01/2023 [facility] DATE CREATED AUTHOR AUTHOR'S ORGANIZ ATION 07/07/2023 [facility] DATE CREATED AUTHOR AUTHOR'S ORGANIZ ATION 09/30/2023 [facility] Patient Care team informatio n (unrecognized section and content) Commissions Analyst Relationship Specialty Start Date End Date Laine Granger CNP [address] [place] [address] Family Medicine 07/24/23 Commissions Analyst Relationship Specialty Start Date End Date Laine Granger CNP [address] [place] [address] Referring Family Medicine 07/24/23 Commissions Analyst Relationship Specialty Start Date End Date Laine Granger CNP [address] [place] [address] Referring Family Medicine 07/24/23 Commissions Analyst Relationship Specialty Start Date End Date Laine Granger CNP [address] [place] [address] Referring Family Medicine 07/24/23 Commissions Analyst Relationship Specialty Start Date End Date Laine Granger CNP [address] [place] [address] Referring Family Medicine 07/24/23 Source Comments (unrecognize d section and content) In the event this informatio n is protected by the Federal Confidentiality of Alcohol and Drug Abuse Patient Records regulations: The Federal rules restrict any use of the information to criminally investigate or prosecute any alcohol or drug abuse patient.[facility] the event this information is protected by the Federal Confidentiality of Alcohol and Drug Abuse Patient Records regulations: The Federal rules restrict any use of the information to criminally investigate or prosecute any alcohol or drug abuse patient.[facility] the event this information is protected by the Federal Confidentiality of Alcohol and Drug Abuse Patient Records regulations: The Federal rules restrict any use of the information to criminally investigate or prosecute any alcohol or drug abuse patient.[facility] the event this information is protected by the Federal Confidentiality of Alcohol and Drug Abuse Patient Records regulations: The Federal rules restrict any use of the information to criminally investigate or prosecute any alcohol or drug abuse patient.[facility] the event this information is protected by the Federal Confidentiality of Alcohol and Drug Abuse Patient Records regulations: The Federal rules restrict any use of the information to criminally investigate or prosecute any alcohol or drug abuse patient.[facility] the event this information is protected by the Federal Confidentiality of Alcohol and Drug Abuse Patient Records regulations: The Federal rules restrict any use of the information to criminally investigate or prosecute any alcohol or drug abuse patient.[facility] the event this information is protected by the Federal Confidentiality of Alcohol and Drug Abuse Patient Records regulations: The Federal rules restrict any use of the information to criminally investigate or prosecute any alcohol or drug abuse patient.[facility] Reason for Visit (unrecogniz ed section and content) Reason Comments EMG Instructions Reason Comments New Pain Specialty Diagnoses / Procedures Referred By Contac t Referred To Contact Orthopedics / ORTHOPAEDIC SURGERY Diagnoses sprain of left wrist, alin is coming in for seccond opinion, had carple tunnel surgery on this wrist october 02, 2022 Procedures [facility] Laine Granger, EXTRACTOR FILLER [address] [place] [address] Lucio Mixon MD [address] [place] [address] Referral ID Status Reason Start Date Expiration Date V isits Requested Visits Authorized [id number] Closed Patient Cleared - Admin/Chairm an/Director advise to proceed or did not respond 08/13/2023 08/13/2023 1 1 Specialty Diagnoses / Procedures Referred By Charlesac t Referred To Contact [facility] Diagnoses Sprain of left wrist, sequela Carpal tunnel syndrome of left wrist Procedures EMG(NEURO/NI) NERVE CONDUCTION STUDIES 9-10 STUDIES Ines Coker MD [address] [place] [address] [facility] [address] [place] [address] Referral ID Status Reason Start Date Expiration Date V isits Requested Visits Authorized [id number] Closed Auto-Generate d Referral 09/29/2023 10/29/2023 1 1 Reason Comments EMG- FAXED RESULTS FOR RECORDS PERTAINING TO PATIENTS WHO ARE [...] BE BASED ON THE PRIMARY CLINICAL RECORDS. [employer] [facility]. provides no warranty or guarantee of the accuracy or completeness of information in this document.
--- NOTE | 2023-11-12 10:19 | VEIN_ITS ---
Patient Name: KASSANDRA LOPEZ MR#: [id number] : 1965 Exam Date: 11/12/2023 Ordering Doctor: DR CARLOS CONDE M.D. RADIOLOGY REPORT PROCEDURE: [facility] - OFFICE VISIT INITIAL COMPARISON: None. PROGRESS NOTES: 58-year-old female who presents with bilateral lower extremity pain swelling and achiness. The patient's left leg is worse than the right. 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 The patient has worn compression stockings for approximately 2 years. The patient has had varicose veins since her 1st 37 years ago. The patient had a single episode of provoked deep vein thrombus related to left plantar fasciitis surgery in May of 2023. No unprovoked DVT. The patient symptoms are exacerbated by prolonged sitting or standing and are partially relieved by rest, leg elevation and compression stockings. The patient denies any signs and symptoms to suggest arterial ischemia. The patient describes a family history of varicose veins in her mother. Past medical history significant for plantar fibromatosis, left ankle contracture, vertigo, chronic cystitis, chronic kidney disease, urinary tract infection, GERD, kidney stones. Surgical history significant for endometrial ablation, spinal surgically, tonsillectomy, foot surgery, carpal tunnel release. Family history of diabetes, hypertension and myocardial infarction. No history of deep venous thrombus or pulmonary embolus. See separate history and physical for medication list. No prior treatment for varicose or spider veins. Nursing notes were reviewed. After history and physical exam I discussed at length the pathophysiology of venous hypertension and possible treatments, therapies and strategies available. We discussed at length the importance of elevating the lower extremities above the level of the heart, increased physical activity and compression stocking use. Ultrasound venous reflux study performed the same day was discussed at length with the patient. The report demonstrates moderate bilateral great saphenous and anterior accessory saphenous vein venous insufficiency with dilatation saphenofemoral junction reflux. Bilateral incompetent perforating veins. Bilateral incompetent varicose veins PHYSICAL EXAM: The right leg demonstrates mild scattered varicose veins. Moderate reticular and spider veins. No subcutaneous edema. No skin discoloration or active ulceration The left leg demonstrates moderate diffuse varicose reticular and spider veins. Some hemosiderin staining is noted. No subcutaneous edema. No active ulceration Both thighs, legs and feet were symmetrically warm to the touch. Good posterior tibial and dorsalis pedis pulses were present bilaterally. VEIN/VC Facility EST Comprehensive IMPRESSION: 1. Moderate bilateral great saphenous veins, moderate bilateral anterior accessory saphenous vein venous insufficiency with dilatation and saphenofemoral junction reflux 2. Moderate bilateral lower extremity incompetent varicose veins 3. No definite lower extremity subcutaneous edema 4. No definite flow significant arterial disease 5. CEAP: C4a, Ep, As, Pr PLAN: 1. Endovenous laser ablation left anterior accessory saphenous vein followed by right great saphenous vein followed by left great saphenous vein followed by right anterior accessory saphenous vein 2. Possible ablation of bilateral incompetent perforating veins 3. Micro foam chemical ablation bilateral incompetent varicose veins 4. Injection sclerotherapy reticular and spider veins 5. Leg elevation and increased physical activity for symptomatic relief Nurse notes, history and physical were reviewed and confirmed, see attached forms. The nurse was present throughout the physical exam and consultation Dictated by: Carlos Conde MD on 11/12/2023 at 12:20 Approved by: Carlos Conde MD on 11/12/2023 at 12:37
--- NOTE | 2023-11-12 10:20 | VEIN_ITS ---
Patient Name: KASSANDRA LOPEZ MR#: [id number] : 1965 Exam Date: 11/12/2023 Ordering Doctor: DR CARLOS CONDE M.D. RADIOLOGY REPORT PROCEDURE: VC EXT VENOUS REFLUX NELSON LMTD COMPARISON: None. INDICATIONS: I83.813 Painful varicose veins bilateral legs TECHNIQUE: Duplex imaging of the lower extremity to assess the deep and superficial venous system for the presence of deep or superficial venous incompetence and to document the location and severity of disease. The study includes evaluation of the great saphenous vein (GSV), anterior accessory saphenous vein (AASV) and small saphenous vein (SSV). Patient scanned in reverse Trendelenburg and standing. FINDINGS: RIGHT LOWER EXTREMITY: Saphenofemoral Junction Reflux: Yes 12.2mm 3.6 sec GSV: Diam (mm) Reflux/ Time (sec) Proximal Thigh 7.5 Yes 2.0 Mid Thigh 6.0 Yes 1.5 Distal Thigh 5.4 Yes 1.4 Prox Calf 4.2 Yes 2.8 Mid Calf 3.7 Yes 2.7 Saphenopopliteal Junction Reflux: 3.4mm No SSV: Proximal Calf 1.4 No Mid Calf 2.0 AASV: Proximal Thigh 5.5 Yes 1.1 Mid Thigh 4.5 Yes 1.8 Distal Thigh Thrombi: No acute or chronic thrombus visualized Compressibility: Normal Flow: Normal Preforator: Dist/med calf arising off of gastrocs 8.6mm with 1.2s reflux. Tech Note: Incompetent GSV and AASV. Patent varicose vein mid/med calf 6.0mm with 2.7s reflux. Patent varicose vein medial knee 6.7mm with 3.8s reflux. Patent varicose vein mid/post calf 5.6mm with 3.6s reflux. LEFT LOWER EXTREMITY: Saphenofemoral Junction Reflux: Yes 8.7 mm 1.9 sec GSV: Diam (mm) Reflux/Time (sec) Proximal Thigh 6.5 Yes 1.5 Mid Thigh 3.7 Yes 1.2 Distal Thigh 2.1 No Prox Calf 3.7 Yes 0.5 Mid Calf 4.5 No Saphenopopliteal Junction Relux: 3.1 mm Yes 1.2 SSV: Proximal Calf 3.0 Yes 0.5 Mid Calf 2.8 Yes 0.5 AASV: Proximal Thigh 7.9 Yes 2.8 Mid Thigh 8.5 Yes 2.9 Distal Thigh Thrombi: No acute or chronic thrombus visualized Compressibility: Normal Flow: 1.4s reflux in Pop V. Aging Room Hand: Dist/med calf 6.0mm with 1.2s reflux. Tech Note: Incompetent GSV and AASV. GSV is tortuous after mid thigh. Patent varicose vein mid/med calf 5.7mm with 2.0s reflux. Patent varicose vein prox/posterior calf 4.5mm with 2.2s reflux. Patent varicose vein dist/med thigh 11.2mm with 1.6s reflux. CONCLUSION: 1. Moderate bilateral great saphenous vein and bilateral anterior accessory saphenous vein venous insufficiency with dilatation and saphenofemoral junction reflux 2. Deep vein reflux in the left popliteal vein 3. Bilateral incompetent perforating veins 4. Bilateral incompetent varicose veins Dictated by: Carlos Conde MD on 11/12/2023 at 11:35 Approved by: Carlos Conde MD on 11/12/2023 at 11:39
[2023-11-12 10:31] VITALS: BP 120/60; PULSE 62; O2SAT 98; BMI 39.0
== END 2023-11-12 14:28 | disposition home or self-care (01) ==
LOC: VC 10:08
PROVIDERS: PCP Family Medicine; Visit Provider Radiology Diagnostic Radiology
DX: I83.813 Varicose veins of bilateral lower extremities with pain (principal)
CPT/HCPCS: 93970; G0463

== ENCOUNTER 2023-12-02 11:16 | Outpatient (OUT) | payer OTHER, SELFPAY ==
--- NOTE | 2023-12-02 | XR_ITS ---
The [address] [address] Patient Name: KASSANDRA LOPEZ MRN: [id number] date: 1965 Sex: F Assigned Patient Location: Current Patient Location: Accession/Order Number: [id number] Exam Date: 12/02/2023 11:25 Report Date: 12/02/2023 14:51 At the request of: POLY GONSALES Procedure: XR ankle LT min 3V PROCEDURE: XR ankle LT min 3V, XR foot LT min 3V COMPARISON: None. HISTORY: LEFT ANKLE PAIN FINDINGS: BONES:No acute fracture or dislocation. Mild to moderate degenerative changes with joint space narrowing marginal osteophyte formation. Mild enthesopathic spurring plantar calcaneus. SOFT TISSUES:Negative. No visible soft tissue swelling. EFFUSION:None visible. OTHER: Multiple varicosities XR/XR ankle LT min 3V IMPRESSION: Mild to moderate osteoarthritis Electronically authenticated by: CONSTANCE HERNANDEZ Date: 12/02/2023 14:51
--- NOTE | 2023-12-02 | XR_ITS ---
The [address] [address] Patient Name: KASSANDRA LOPEZ MRN: [id number] date: 1965 Sex: F Assigned Patient Location: Current Patient Location: Accession/Order Number: [id number] Exam Date: 12/02/2023 11:20 Report Date: 12/02/2023 14:51 At the request of: POLY GONSALES Procedure: XR foot LT min 3V PROCEDURE: XR ankle LT min 3V, XR foot LT min 3V COMPARISON: None. HISTORY: LEFT ANKLE PAIN FINDINGS: BONES:No acute fracture or dislocation. Mild to moderate degenerative changes with joint space narrowing marginal osteophyte formation. Mild enthesopathic spurring plantar calcaneus. SOFT TISSUES:Negative. No visible soft tissue swelling. EFFUSION:None visible. OTHER: Multiple varicosities XR/XR foot LT min 3V IMPRESSION: Mild to moderate osteoarthritis Electronically authenticated by: CONSTANCE HERNANDEZ Date: 12/02/2023 14:51
--- OUTSIDE RECORDS SUMMARY | 2023-12-02 11:38 | XMS_ITS | CCD ---
Author Organization [facility]iniSyia Care Team Providers Care Psychometrician Name Role Phone Shai Lau Primary Care [...] CNP, Laine Unavailable Lawrence Granger CNPistina Unavailable [phone] INES COKER Referring Unavailable LAINE GRANGER Referring Unavailable LUCIO MIXON Attending Unavailable LUCIO MIXON Referring Unavailable Allergies Allergy Classification Reported Allergen(s) Allergy Type Date of Onset Reaction(s) Facility (6 sources) levoFLOXacin; Translations: [levofloxacin] Drug Allergy 02-22-20 16 .. [facility] (14 sources) PHENobarbital; Translations: [phenobarbital] Drug Allergy 07-07-19 15 Unknown [facility] (5 sources) Sulfonamides (Antibiotic); Translations: [sulfa drugs] Drug allergy RASH [facility] (1 source) benzoin resin Drug Allergy 08-21-19 16 [facility] (1 source) levoFLOXacin Drug Allergy 08-21-19 16 [facility] (1 source) Sulfonamides (Antibiotic) Drug allergy (disorder) 08-21-19 16 [facility] (9 sources) Sulfamethoxazole / Trimethoprim; Translations: [SULFAMETHOXAZOLE-TR IMETHOPRIM] Drug Allergy 07-07-19 15 Rash [facility] Repository (1 source) Sulfonamides (Antibiotic); Translations: [SULFA (SULFONAMIDE ANTIBIOTICS)] Propensity to adverse reactions to drug (disorder) 12-20-19 15 [facility] Repository Medications Current Medications Medication Drug [...] day(s), # 14 cap(s), Refills(s) 0, Pharmacy: [facility]/pharmacy #[id number], 161, cm, 05/13/21 9:04:00 EST, Height/Length Dosing, 91.5, kg, 05/13/21 9:04:00 EST, Weight Dosing Start Date: 07/02/21 Stop Date: 07/09/21 Status: Ordered fluconazole 150 mg oral tablet (2 sources) Azole Antifungal Start: 07-02-2021 End: 07-09-2021 Diflucan 150 mg Tab See Instructions, 1 tab po q72 hrs x 3 doses, then dc, # 3 tab(s), Refills(s) 0, Pharmacy: [facility]/pharmacy #[id number], 161, cm, 05/13/21 9:04:00 EST, Height/Length [...] 0, Prophylaxis Start Date: 01/11/16 Status: Ordered Neihart-3 Fatty Acids-Vitamin E (FISH OIL) 1,000 mg cap (7 sources) Neihart-3 Fatty Acids-Vitamin E (FISH OIL) 1,000 mg [...] Test Name Value Interpretation Reference Range Facility [facility] 09-29-2023 [facility] Telephone (EMGMN) ALYSSA LOPEZ ([id number]) 1965 F Date Time Provider Department 09/29/23 [...] DAILY MULTIVITAMIN ORAL Take by mouth. - Neihart-3 Fatty Acids-Vitamin E (FISH OIL) 1,000 mg cap Take 1 capsule by mouth. - amitriptyline (ELAVIL) 10 mg tablet Take 10 mg by mouth daily at bedtime. - metoclopramide HCl (REGLAN) 5 mg tablet Take 5 mg by mouth daily at bedtime. Problem List As Of Date: 09/29/2023 (None) Encounter Status:Closed by NEEMA CAMPOS on 09/29/23 Normal [facility] EMG(NEURO/NI)on 09-29-2023 Results can be seen in attached scanned documents. If you are a patient reviewing this test result, call the doctor who ordered the test with any questions. [facility] 08-28-2023 [facility] Telephone (EMGMN) ALYSSA LOPEZ ([id number]) 1965 F Date Time Provider Department 08/28/23 [...] DAILY MULTIVITAMIN ORAL Take by mouth. - Neihart-3 Fatty Acids-Vitamin E (FISH OIL) 1,000 mg cap Take 1 capsule by mouth. - amitriptyline (ELAVIL) 10 mg tablet Take 10 mg by mouth daily at bedtime. - metoclopramide HCl (REGLAN) 5 mg tablet Take 5 mg by mouth daily at bedtime. Problem List As Of Date: 08/28/2023 (None) Encounter Status:Closed by MANDY PRECIADO on 08/28/23 [facility] Izzy 08-20-2023 [facility] Telephone (OTMBHT) ALYSSA LOPEZ ([id number]) 1965 F Date Time Provider Department 08/20/23 LUCIO MIXON During your visit today, we recorded the following information about you: Karly Leija 08/20/2023 9:18 AM Signed Name of Caller: Nayeli at [facility] Relationship to patient: Last visit in this department: 08/13/2023 Reason for Call: Other : Nayeli calling from [facility] to get office notes and any test results if applicable for the 08/13/23 visit. Please fax to [phone] Callback number: [phone] Fax Number (if necessary): [phone] Additional info if needed (Prior Auth #, Claim #, etc?): N/A Valentina Bella PA-C 08/24/2023 9:[address] Mixon's note still not completed, I did call Nayeli at [employer]. We did discuss that the patient needs [...] DAILY MULTIVITAMIN ORAL Take by mouth. - Neihart-3 Fatty Acids-Vitamin E (FISH OIL) 1,000 mg cap Take 1 capsule by mouth. - amitriptyline (ELAVIL) 10 mg tablet Take 10 mg by mouth daily at bedtime. - metoclopramide HCl (REGLAN) 5 mg tablet Take 5 mg by mouth daily at bedtime. Problem List As Of Date: 08/20/2023 (None) Encounter Status:Closed by VALENTINA LINDSEY on 08/24/23 [facility] CNOVon 08-13-2023 CNOV Office Visit (OTMBHT) ALYSSA LOPEZ ([id number]) 1965 F Date Time Provider Department 08/13/23 9:20 AM LUCIO MIXON During your visit today, we recorded the following information about you: Lucio Mixon MD 09/08/2023 4:53 PM Signed Lucio Mixon MD Department of Orthopaedics Orthopaedic Surgery [facility] [address] [address] [facility] [address] Dept: [phone] Dept August 13, 2023 CHIEF COMPLAINT: New [...] her origional EMG test. SHe'll have her [facility] get an c9 for a new [...] ONE DAILY MULTIVITAMIN ORAL Take by mouth. Neihart-3 Fatty Acids-Vitamin E (FISH OIL) 1,000 mg [...] requesting physician via US mail. Laine Granger COLD STRIP ROLLER [address] [facility] [address] Lucio Mixon MD Referring Provider: LAINE GRANGER [[id number]] Allergies As of Date: 08/13/2023 Noted Allergy Reaction BACTRIM (SULFAMETHOXAZOLE-TR IMETH*07/06/2014 2 - Rash PHENOBARBITAL 07/06/2014 16 - Unknown Date Reviewed: 08/13/2023 Reviewed by: Nargis Stiles MA - Fully Assessed Reason for Visit: New [173325] Pain [78] Primary Visit Diagnosis:Numbness and tingling in left hand [R20.0, R20.2] Prescriptions as of 09/08/2023 - ONE DAILY MULTIVITAMIN ORAL Take by mouth. - Neihart-3 Fatty Acids-Vitamin E (FISH OIL) 1,000 mg cap Take 1 capsule by mouth. - amitriptyline (ELAVIL) 10 mg tablet Take 10 mg by mouth da (more content not included)... Normal [facility] XR WRIST 3V PA/LAT/OBL LTon 08-13-2023 XR [...] IMPRESSION: REMOTE POSTSURGICAL AND DEGENERATIVE CHANGES DESCRIBED Screen Cutter And Trimmer: PSCB Transcribe Date/Time: Aug 13 2023 10:48A Dictated by : SARITA WILEY MD This examination was interpreted and the report reviewed and electronically signed by: SARITA WILEY MD on Aug 13 2023 10:50AM EST [id number] Normal [facility] Provider Letteron 04-23-2023 Provider Letter April 23, 2023 ALYSSA LOPEZ [address] [facility] [place] [address] : 1965 Dear Alyssa , We have [...] [facility] [address], [place] [address] [facility] Follow-Upon 04-22-2023 Follow-Up [id number] Alyssa Lopez 1965 Provider Department Center 04/22/2023 MAX MUST[facility]FA [facility] CLAUDIARTHO Family History Family history unknown: Yes Level of Service:96964 [place] OFFICE/OUTPT VISIT,PROCEDURE ONLY Reason for Visit and Comments: Follow-up [060422] - Constant tingling - thumb goes numb when driving or holding something for a bit and the numbness also goes into the middle finger as well. Pain [136] - Constant tingling - thumb goes numb when driving or holding something for a bit and the numbness also goes into the middle finger as well. Normal [facility] Follow-Upon 02-10-2023 Follow-Up [id number] Alyssa Lopez 1965 Provider Department Center 02/10/2023 MAX MUSTAFA MP ORTHO MPORTHO Family History Family history unknown: Yes Level of Service:50427 VT OFFICE/OUTPATIENT ESTABLISHED LOW MDM 20-29 MIN Reason for Visit and Comments: Follow-up [055587] Normal [facility] Follow-Upon 11-26-2022 Follow-Up [id number] Alyssa Lopez 1965 Provider Department Center 11/26/2022 MAX MUSTAFA MP ORTHO MPORTHO Family History Family history unknown: Yes Level of Service:88861 VT OFFICE/OUTPATIENT ESTABLISHED LOW MDM 20-29 MIN Reason for Visit and Comments: Pain [136] Follow-up [410413] Normal [facility] Office Visiton 10-15-2022 Follow-up visit [id number] Alyssa Lopez 1965 F Date Provider Department Center 10/15/2022 438-MAX KOWALSKI [facility] Family History Family history unknown: Yes Level of Service:60808 VT POSTOP FOLLOW UP VISIT RELATED TO ORIGINAL PX (GC) Reason for Visit and Comments: Post-op [483] Follow-up [489728] [facility] 36on 10-02-2022 36 I spoke to the patient to see how she is doing after her recent surgery with Dr Kowalski. Ms Arash stated she is doing well and that her pain is manageable with medications. She has a follow up with Dr Kowalski on October 15 at 120. She had no other questions or concerns. [facility] HPon 10-01-2022 HP History Of [...] Active Problems: Hyperlipidemia L C TR Normal [facility] OPNOTEon 10-01-2022 OPNOTE Operative Note Patient: Guillermina Lopez Date of Surgery: 10/01/2022 : 1965 Pre-operative Diagnosis: Carpal Tunnel Syndrome left Hand Post-operative Diagnosis: same Operation: Carpal Tunnel Release, left (21223) Surgeon: Max Kowalski MD Talent Assistant: Drew Chacon MD Staff: Court Bailiff Or Sheriff: Mayte Chery RN Scrub Person: Cayetano Ace [...] PACU Condition: stable Max Kowalski MD Normal [facility] POCT GLUCOSE METER UNSOLICIT ED RESULTSon 10-01-2022 Glucose [Mass/Vol] 91 mg/dL Normal 70-105 [facility] Comment on above: Order Comment: Waive d Testing in the ED is performed under the ED CLIA certificate #[id number]. Result Comment: epaw low Performed By: #### L [id number] ####[facility] (BEAKER)[address] [place] [address] [id number] 09-24-2022 [id number] NPO AFTER MIDNIGHT. MUST HAVE A SHIP OFFICER TO TAKE YOU HOME AND SOMEONE TO STAY FOR 24 HOURS AFTER SURGERY. NO JEWELRY OR VALUABLES. HOLD THE MEDS WE SPOKE ABOUT: VITAMINS STARTING 09-27. TAKE THE MEDS WE SPOKE ABOUT WITH A SIP OF WATER DOS: PREVACID, ADIPEX. BRING INSURANCE CARD AND PHOTO ID AND MED LIST. Normal [facility] Lab Reportson 08-21-2022 Lab Reports [id number] #1.00CD:127 Normal [facility] CITRATE URINE 24HRon 023 Citric Acid, U, 24hr 363 mg/24 hr Normal 320-1240 Th [facility] Comment on above: Result Comment: This test was developed and its performance characteristics determined by [email or web address]. It has not been cleared or approved by the Food and Drug Administration. Performed By: #### C ITRATU #### [facility] [address] [address] [address] Prabhu Lopez Citric Acid, Urine 338 mg/L Normal Undefined [facility] Comment on above: Performed By: #### C ITRATU #### [facility] [address] [address] [address] Prabhu Lopez OXALATE 24HR URINEon 023 Oxalates, Urine 15 mg/L Normal Undefined [facility] Comment on above: Performed By: #### O X24HR #### [facility] [address] [address] [address] Prabhu Lopez Oxalates, Urine 24hr 16 mg/24 hr Normal 4-31 [facility] Comment on above: Performed By: #### O X24HR #### [facility] [address] [address] [address] Prabhu Lopez Lab Reportson 08-17-2022 Lab Reports [id number] #1.00CD:127 Normal [facility] Lab Reports [id number] #1.00CD:127 Normal [facility] Lab Reports [id number] #1.00CD:127 Normal [facility] MAGNESIUM 24HR URINEon 08-15 Magnesium 24hr Urine 94.6 mg/24 hr Normal 12.0-293.0 T [facility] Comment on above: Performed By: #### U JESI, BMP #### [facility] [address] [place] [address] Dr. Prabhu Lopez Magnesium UR 8.8 mg/dL Normal Not Estab. [facility] Comment on above: Performed By: #### U JESI, BMP #### [facility] [address] [place] [address] Dr. Prabhu Lopez PHOSPHORUS 24HR URINEon 08-04 Phosphorus, Urine 48.2 mg/dL Normal Not Estab. [facility] Comment on above: Performed By: #### P HOS 24 #### [facility] [address] [place] [address] Dr. Prabhu Lopez Phosphorus, Urine 24hr 518 mg/24 hr Normal 261-1078 [facility] Comment on above: Performed By: #### P HOS 24 #### [facility] [address] [place] [address] Dr. Prabhu Lopez URIC ACID 24 HR URINEon 08-04 Uric Acid, Urine 29.6 mg/dL Normal Not Estab. [facility] Comment on above: Performed By: #### U JESI, BMP #### [facility] [address] [place] [address] Dr. Prabhu Lopez Uric Acid, Urine 24hr 318.2 mg/24 hr Normal 173.7-902.1 [facility] Comment on above: Performed By: #### U JESI, BMP #### [facility] [address] [place] [address] Dr. Prabhu Lopez CALCIUM 24 HR URINEon 2022 CALC, 24 HR UR 76.3 mg/24 hr Critically low 100.0-300.0 Th [facility] Comment on above: Performed By: #### C ALC24U #### [facility] [address] [place] [address] Dr. Prabhu Lopez UR CALCIUM 7.1 mg/dL Normal 5.1-21.0 [facility] Comment on above: Performed By: #### C ALC24U #### [facility] [address] [place] [address] Dr. Prabhu Lopez UR TOT VOL 1075 ml/24 HR Normal [facility] Comment on above: Performed By: #### C ALC24U #### [facility] [address] [place] [address] Dr. Prabhu Lopez Performed By: #### N A24U, [id number] #### [facility] [address] [place] [address] Dr. Prabhu Lopez CBC AUTO DIFFon 08-14-2022 BASO # 0.1 103/ul Normal 0.0-0.1 [facility] Comment on above: Performed By: #### U JESI, BMP #### [facility] [address] [place] [address] Dr. Prabhu Lopez Basophils/100 WBC (Bld) 1.3 % Normal 0.2-2.0 [facility] Comment on above: Performed By: #### U JESI, BMP #### [facility] [address] [place] [address] Dr. Prabhu Lopez EO # 0.3 103/ul Normal 0.0-0.7 [facility] Comment on above: Performed By: #### U JESI, BMP #### [facility] [address] [place] [address] Dr. Prabhu Lopez Eosinophils/100 WBC (Bld) 5.2 % Normal 0.9-7.0 [facility] Comment on above: Performed By: #### U JESI, BMP #### [facility] [address] [place] [address] Dr. Prabhu Lopez Erythrocyte distribution width (RBC) [Ratio] 12.9 % Normal 11.0-15.0 [facility] Comment on above: Performed By: #### U JESI, BMP #### [facility] [address] [place] [address] Dr. Prabhu Lopez Hematocrit (Bld) [Volume fraction] 42.7 % Normal 36.0-48.0 [facility] Comment on above: Performed By: #### U JESI, BMP #### [facility] [address] [place] [address] Dr. Prabhu Lopez Hemoglobin (Bld) [Mass/Vol] 13.4 g/dL Normal 12.0-16.0 [facility] Comment on above: Performed By: #### U JESI, BMP #### [facility] [address] [place] [address] Dr. Prabhu Lopez IG # 0.02 10e3/ul Normal 0.00-0.03 [facility] Comment on above: Performed By: #### U JESI, BMP #### [facility] [address] [place] [address] Dr. Prabhu Lopez IG % 0.4 % Normal 0.0-0.5 [facility] Comment on above: Performed By: #### U JESI, BMP #### [facility] [address] [place] [address] Dr. Prabhu Lopez LYMPH # 2.0 103/ul Normal 1.2-3.8 [facility] Comment on above: Performed By: #### U JESI, BMP #### [facility] [address] [place] [address] Dr. Prabhu Lopez Lymphocytes/100 WBC (Bld) 41.5 % Normal 20.5-60.0 [facility] Comment on above: Performed By: #### U JESI, BMP #### [facility] [address] [place] [address] Dr. Prabhu Lopez MANUAL DIFF REQ NO Normal [facility] Comment on above: Performed By: #### U JESI, BMP #### [facility] [address] [place] [address] Dr. Prabhu Lopez MCH (RBC) [Entitic mass] 28.7 pg Normal 26.7-34.0 [facility] Comment on above: Performed By: #### U JESI, BMP #### [facility] [address] [address] [address] Prabhu Lopez MCHC (RBC) [Mass/Vol] 31.4 g/dL Normal 29.9-35.2 [facility] Comment on above: Performed By: #### U JESI, BMP #### [facility] [address] [place] [address] Dr. Prabhu Lopez MCV (RBC) [Entitic vol] 91.4 fL Normal 81.0-99.0 [facility] Comment on above: Performed By: #### U JESI, BMP #### [facility] [address] [place] [address] Dr. Prabhu Lopez MONO # 0.4 103/ul Normal 0.3-0.8 [facility] Comment on above: Performed By: #### U JESI, BMP #### [facility] [address] [place] [address] Dr. Prabhu Lopez Monocytes/100 WBC (Bld) 8.3 % Normal 1.7-12.0 [facility] Comment on above: Performed By: #### U JESI, BMP #### [facility] [address] [place] [address] Dr. Prabhu Loepz NEUT # 2.1 103/ul Normal 1.4-6.5 [facility] Comment on above: Performed By: #### U JESI, BMP #### [facility] [address] [place] [address] Dr. Prabhu Lopez Neutrophils/100 WBC (Bld) 43.3 % Normal 43.0-75.0 [facility] Comment on above: Performed By: #### U JESI, BMP #### [facility] [address] [place] [address] Dr. Prabhu Lopez Platelet mean volume (Bld) [Entitic vol] 11.7 fL Normal 9.5-13.5 [facility] Comment on above: Performed By: #### U JESI, BMP #### [facility] [address] [place] [address] Dr. Prabhu Lopez PLT 237 103/ul Normal 150-450 [facility] Comment on above: Performed By: #### U JESI, BMP #### [facility] [address] [place] [address] Dr. Prabhu Lopez RBC 4.67 106/ul Normal 4.20-5.40 [facility] Comment on above: Performed By: #### U JESI, BMP #### [facility] [address] [place] [address] Dr. Prabhu Lopez WBC 4.8 103/ul Normal 4.0-11.0 [facility] Comment on above: Performed By: #### U JESI, BMP #### [facility] [address] [place] [address] Dr. Prabhu Lopez CREA 24 HR URINEon 3 CREA, 24 HR UR 875.48 mg/24 hr Normal 800.00-1,8 00. 00 [facility] Comment on above: Performed By: #### N A24U, [id number] #### [facility] [address] [place] [address] Dr. Prabhu Lopez URINE CREAT 81.44 mg/dL Normal 20.00-300.00 [facility] Comment on above: Performed By: #### N A24U, [id number] #### [facility] [address] [place] [address] Dr. Prabhu Lopez FREE THYROXINE INDEX T7on FTI 2.34 Normal 1.30-4.50 [facility] Comment on above: Performed By: #### U JESI, BMP #### [facility] [address] [place] [address] Dr. Prabhu Lopez T3U 33.0 % Normal 30.0-39.0 [facility] Comment on above: Performed By: #### U JESI, BMP #### [facility] [address] [place] [address] Dr. Prabhu Lopez T4 [Mass/Vol] 7.10 ug/dL Normal 4.80-13.90 [facility] Comment on above: Performed By: #### U JESI, BMP #### [facility] [address] [place] [address] Dr. Prabhu Lopez GLYCOHEMOGLOBIN A1Con 2022 ADA RECOMMENDATION SEE BELOW Normal [facility] Comment on above: Result Comment: ADA RECOMMENDED LIMIT 4.0 - 6.0 ADA THERAPEUTIC TARGET < 7.0 ACTION SUGGESTED > 7.0 Performed By: #### U JESI, BMP #### [facility] [address] [address] [address] Prabhu Lopez Glucose [Mass/Vol] 123 mg/dL Normal [facility] Comment on above: Performed By: #### U JESI, BMP #### [facility] [address] [address] [address] Prabhu Lopez HbA1c (Bld) [Mass fraction] 5.9 % Normal 4.5-6.2 [facility] Comment on above: Performed By: #### U JESI, BMP #### [facility] [address] [place] [address] Dr. Prabhu Lopez LIPID PROFILEon 08-14-2022 CHOL-HDL RATIO NORM SEE BELOW Normal [facility] Comment on above: Result Comment: 3.3 - 4.4 LOW RISK 4.4 - 7.1 AVERAGE RISK 7.1 - 11.0 MODERATE RISK >11.0 HIGH RISK Performed By: #### U JESI, BMP #### [facility] [address] [address] [address] Prabhu Lopez Cholesterol [Mass/Vol] 255 mg/dL Critically high <=200 [facility] Comment on above: Performed By: #### U JESI, BMP #### [facility] [address] [address] [address] Prabhu Lopez Cholesterol in HDL [Mass/Vol] 80 mg/dL Critically high 40-60 [facility] Comment on above: Performed By: #### U JESI, BMP #### [facility] [address] [address] [address] Prabhu Lopez Cholesterol in LDL [Mass/Vol] 156.6 mg/dL Normal [facility] Comment on above: Performed By: #### U JESI, BMP #### [facility] [address] [address] [address] Prabhu Lopez Cholesterol.total/Ch olesterol in HDL [Mass ratio] 3.2 {ratio} Normal [facility] Comment on above: Performed By: #### U JESI, BMP #### [facility] [address] [address] [address] Prabhu Lopez HDL NORMAL > or = 60 mg/dl - LOW CARDIOVASCULAR RISK <40 mg/dl - HIGH CARDIOVASCULAR RISK Normal [facility] Comment on above: Performed By: #### U JESI, BMP #### [facility] [address] [address] [address] Prabhu Lopez LDL CALC NORMAL SEE BELOW Normal [facility] Comment on above: Result Comment: <100 mg/dl OPTIMAL 100 - 129 mg/dl NEAR OR ABOVE OPTIMAL 130 - 159 mg/dl BORDERLINE HIGH 160 - 189 mg/dl HIGH >190 mg/dl VERY HIGH Performed By: #### U JESI, BMP #### [facility] [address] [place] [address] Dr. Prabhu Lopez Triglyceride [Mass/Vol] 92 mg/dL Normal <=150 [facility] Comment on above: Performed By: #### U JESI, BMP #### [facility] [address] [place] [address] Dr. Prabhu Lopez VLDL CALC 18.4 mg/dL Normal [facility] Comment on above: Performed By: #### U JESI, BMP #### [facility] [address] [place] [address] Dr. Prabhu Lopez PROF 14(COMP METB)on 023 Albumin [Mass/Vol] 3.9 g/dL Normal 3.4-5.0 [facility] Comment on above: Performed By: #### U JESI, BMP #### [facility] [address] [place] [address] Dr. Prabhu Lopez Albumin/Globulin [Mass ratio] 0.8 {ratio} Normal [facility] Comment on above: Performed By: #### U JESI, BMP #### [facility] [address] [place] [address] Dr. Prabhu Lopez ALP [Catalytic activity/Vol] 74 U/L Normal 46-116 [facility] Comment on above: Performed By: #### U JESI, BMP #### [facility] [address] [address] [address] Prabhu Lopez ALT [Catalytic activity/Vol] 29 U/L Normal 14-59 [facility] Comment on above: Performed By: #### U JESI, BMP #### [facility] [address] [address] [address] Prabhu Lopez Anion gap [Moles/Vol] 10.9 mmol/L Normal [facility] Comment on above: Performed By: #### U JESI, BMP #### [facility] [address] [address] [address] Prabhu Lopez AST [Catalytic activity/Vol] 22 U/L Normal 15-37 [facility] Comment on above: Performed By: #### U JESI, BMP #### [facility] [address] [address] [address] Prabhu Lopez Bilirubin [Mass/Vol] 0.7 mg/dL Normal 0.2-1.0 [facility] Comment on above: Performed By: #### U JESI, BMP #### [facility] [address] [address] [address] Prabhu Lopez Calcium [Mass/Vol] 8.9 mg/dL Normal 8.5-10.1 [facility] Comment on above: Performed By: #### U JESI, BMP #### [facility] [address] [address] [address] Prabhu Lopez Chloride [Moles/Vol] 106 mmol/L Normal 98-107 [facility] Comment on above: Performed By: #### U JESI, BMP #### [facility] [address] [address] [address] Prabhu Lopez CO2 [Moles/Vol] 30.1 mmol/L Normal 21.0-32.0 [facility] Comment on above: Performed By: #### U JESI, BMP #### [facility] [address] [address] [address] Prabhu Lopez Creatinine [Mass/Vol] 0.94 mg/dL Normal 0.55-1.02 [facility] Comment on above: Performed By: #### U JESI, BMP #### [facility] [address] [address] [address] Prabhu Lopez EGFR-AF COMORAN >60 Normal >=60 [facility] Comment on above: Performed By: #### U JESI, BMP #### [facility] [address] [address] [address] Prabhu Lopez EGFR-NON AF COMORAN >60 Normal >=60 [facility] Comment on above: Performed By: #### U JESI, BMP #### [facility] [address] [address] [address] Prabhu Lopez Globulin (S) [Mass/Vol] 4.8 g/dL Normal [facility] Comment on above: Performed By: #### U JESI, BMP #### [facility] [address] [address] [address] Prabhu Lopez Glucose [Mass/Vol] 96 mg/dL Normal 74-106 [facility] Comment on above: Performed By: #### U JESI, BMP #### [facility] [address] [address] [address] Prabhu Lopez Potassium [Moles/Vol] 4.0 mmol/L Normal 3.5-5.1 [facility] Comment on above: Performed By: #### U JESI, BMP #### [facility] [address] [address] [address] Prabhu Lopez Protein [Mass/Vol] 8.7 g/dL Critically high 6.4-8.2 [facility] Comment on above: Performed By: #### U JESI, BMP #### [facility] [address] [address] [address] Prabhu Lopez Sodium [Moles/Vol] 143 mmol/L Normal 136-145 [facility] Comment on above: Performed By: #### U JESI, BMP #### [facility] [address] [address] [address] Prabhu Lopez Urea nitrogen [Mass/Vol] 13.0 mg/dL Normal 7.0-18.0 [facility] Comment on above: Performed By: #### U JESI, BMP #### [facility] [address] [place] [address] Dr. Prabhu Lopez Urea nitrogen/Creatinine [Mass ratio] 13.8 mg/mg Normal [facility] Comment on above: Performed By: #### U JESI, BMP #### [facility] [address] [place] [address] Dr. Prabhu Lopez PTH INTACTon 08-14-2022 PTH, Intact 17 pg/mL Normal 15-65 [facility] Comment on above: Performed By: #### U JESI, BMP #### [facility] [address] [place] [address] Dr. Prabhu Lopez SODIUM 24 HR URINEon 023 NA, 24 HR UR 111 mmol/24 hr Normal 40-220 [facility] Comment on above: Performed By: #### N A24U, [id number] #### [facility] [address] [place] [address] Dr. Prabhu Lopez Sodium (U) [Moles/Vol] 103 mmol/L Critically high 30-90 [facility] Comment on above: Performed By: #### N A24U, [id number] #### [facility] [address] [place] [address] Dr. Prabhu Lopez TSHon 08-14-2022 TSH 2.531 uIU/mL Normal 0.358-3.740 [facility] Comment on above: Performed By: #### U JESI, BMP #### [facility] [address] [place] [address] Dr. Prabhu Lopez PROF CHEM 8 (BAS METB)on Anion gap [Moles/Vol] 8.9 mmol/L Normal [facility] Comment on above: Performed By: #### U JESI, BMP #### [facility] [address] [place] [address] Dr. Prabhu Lopez Calcium [Mass/Vol] 9.3 mg/dL Normal 8.5-10.1 [facility] Comment on above: Performed By: #### U JESI, BMP #### [facility] [address] [place] [address] Dr. Prabhu Lopez Chloride [Moles/Vol] 108 mmol/L Critically high 98-107 [facility] Comment on above: Performed By: #### U JESI, BMP #### [facility] [address] [address] [address] Prabhu Lopez CO2 [Moles/Vol] 28.5 mmol/L Normal 21.0-32.0 [facility] Comment on above: Performed By: #### U JESI, BMP #### [facility] [address] [address] [address] Prabhu Lopez Creatinine [Mass/Vol] 1.08 mg/dL Critically high 0.55-1.02 [facility] Comment on above: Performed By: #### U JESI, BMP #### [facility] [address] [address] [address] Prabhu Lopez EGFR-AF COMORAN >60 Normal >=60 [facility] Comment on above: Performed By: #### U JESI, BMP #### [facility] [address] [address] [address] Prabhu Lopez EGFR-NON AF COMORAN 52 mL/min/1.73m2 Critically low >=60 [facility] Comment on above: Performed By: #### U JESI, BMP #### [facility] [address] [address] [address] Prabhu Lopez Glucose [Mass/Vol] 94 mg/dL Normal 74-106 [facility] Comment on above: Performed By: #### U JESI, BMP #### [facility] [address] [address] [address] Prabhu Lopez Potassium [Moles/Vol] 3.4 mmol/L Critically low 3.5-5.1 [facility] Comment on above: Performed By: #### U JESI, BMP #### [facility] [address] [address] [address] Prabhu Lopez Sodium [Moles/Vol] 142 mmol/L Normal 136-145 [facility] Comment on above: Performed By: #### U JESI, BMP #### [facility] [address] [address] [address] Prabhu Lopez Urea nitrogen [Mass/Vol] 17.0 mg/dL Normal 7.0-18.0 [facility] Comment on above: Performed By: #### U JESI, BMP #### [facility] [address] [place], [place] [address] Dr. Prabhu Lopez Urea nitrogen/Creatinine [Mass ratio] 15.7 mg/mg Normal [facility] Comment on above: Performed By: #### U JESI, BMP #### [facility] [address] [place], [place] [address] Dr. Prabhu Lopez URIC ACID SERUMon 08-12-2022 Urate [Mass/Vol] 4.8 mg/dL Normal 2.6-6.0 [facility] Comment on above: Performed By: #### U JESI, BMP #### [facility] [address] [place], [place] [address] Dr. Prabhu Lopez 36on 08-04-2022 36 Surgery was approved. I called pt to schedule. Pt did not answer LMOV to return call. Normal [facility] Prep for Procedureon 023 Prep for Procedure [id number] Guill[address] Lopez 1965 F Date Provider Department Center 08/04/2022 PATRICIA MAK MP [facility] No family history on file Normal [facility] XR KUB 1 VIEWon 05-23-2022 XR KUB [...] by: WIL KAYE Date: 2022-05-23 09:40 Normal [facility] Covid-19 PCR (CVDTB)on 11-04 SARS-CoV-2 (COVID-19) RNA TANGELA+probe Ql (Unsp spec) Not detected Normal NOT DETECTED [facility] Comment on above: Result Comment: When diagnostic [...] for this test is supported by the [employer] Dish[employer]her of Health and Human Service's declaration that [...] used). Performed By: #### C VDTB #### [facility] [address] [place] [address] Dr. Prabhu Lopez Covid-19 PCR (CVDTB)on SARS-CoV-2 (COVID-19) RNA TANGELA+probe Ql (Unsp spec) Not detected Normal NOT DETECTED [facility] Comment on above: Result Comment: This test is not yet approved or cleared by the [place] FDA. When there are no FDA-approved or cleared tests available, and other criteria are met, FDA can make tests available under an emergency access mechanism called an Emergency Use Authorization (EUA). The EUA for this test is supported by the [place] Dishwasher of Health and Human Service's (HHS's) declaration [...] SARS-CoV-2. Performed By: #### C VDTB #### [facility] [address] [address] [address] Prabhu Lopez B-Type Natriuretic Peptideon 02-12-2021 Natriuretic peptide B (Bld) [Mass/Vol] 36.0 pg/mL Normal 5-100 [facility] Comment on above: Result Comment: PERF ORMED BY: [place] [address] PATHOLOGIST FILM ARCHIVIST NICANOR BALTAZAR M.D. Performed By: #### C BC, PTT, CKMB, BMP, CK, BNP, PT, HS TROP #### [address] Basic Metabolic Panelon Calcium [Mass/Vol] 8.9 mg/dL Normal 8.2-10.2 [facility] Comment on above: Performed By: #### C BC, PTT, CKMB, BMP, CK, BNP, PT, HS TROP #### [address] Chloride [Moles/Vol] 104 mmol/L Normal 95-[address] [facility] Comment on above: Performed By: #### C BC, PTT, CKMB, BMP, CK, BNP, PT, HS TROP #### [address] CO2 [Moles/Vol] 24.0 mmol/L Normal 22.0-30.0 [facility] Comment on above: Performed By: #### C BC, PTT, CKMB, BMP, CK, BNP, PT, HS TROP #### [address] Creatinine [Mass/Vol] 1.06 mg/dL High 0.44-1.03 [facility] Comment on above: Performed By: #### C BC, PTT, CKMB, BMP, CK, BNP, PT, HS TROP #### [facility] [address] [place] [address] Creatinine Clr Calc Pharmacy 64.12 Normal [facility] Comment on above: Result Comment: PERF ORMED BY: [place] [address] PATHOLOGIST FILM ARCHIVIST NICANOR BALTAZAR M.D. Performed By: #### C BC, PTT, CKMB, BMP, CK, BNP, PT, HS TROP #### [address] Estimated GFR ( Najma > 60 [facility] Comment on above: Result Comment: GFR estimated reference range: According to KDOQI guidelines, <60 ml/min/1.73m2 is sufficient to diagnose a patient with chronic kidney disease. Performed By: #### C BC, PTT, CKMB, BMP, CK, BNP, PT, HS TROP #### [address] Estimated GFR (Non- Am 54 [facility] Comment on above: Performed By: #### C BC, PTT, CKMB, BMP, CK, BNP, PT, HS TROP #### [address] Glucose [Mass/Vol] 106 mg/dL High 70-100 [facility] Comment on above: Result Comment: [place] Glucose Reference Range is dependent on time and content of last meal. Glucose of more than 200 mg/dL in a nonstressed, ambulatory subject supports the diagnosis of Diabetes Mellitus. ADA recommended reference range Performed By: #### C BC, PTT, CKMB, BMP, CK, BNP, PT, HS TROP #### [address] Potassium [Moles/Vol] 3.3 mmol/L Low 3.5-5.1 [facility] Comment on above: Performed By: #### C BC, PTT, CKMB, BMP, CK, BNP, PT, HS TROP #### [address] Sodium [Moles/Vol] 138 mmol/L Normal 136-146 [facility] Comment on above: Performed By: #### C BC, PTT, CKMB, BMP, CK, BNP, PT, HS TROP #### [address] Urea nitrogen [Mass/Vol] 11 mg/dL Normal 9-23 [facility] Comment on above: Performed By: #### C BC, PTT, CKMB, BMP, CK, BNP, PT, HS TROP #### [address] Complete Blood Count Auto Di ffon 02-12-2021 Basophils (Bld) [#/Vol] 0.1 10*3/uL Normal 0.0-0.2 [facility] Comment on above: Result Comment: PERF ORMED BY: [place] [address] PATHOLOGIST FILM ARCHIVIST NICANOR BALTAZAR M.D. Performed By: #### C BC, PTT, CKMB, BMP, CK, BNP, PT, HS TROP #### [address] Basophils/100 WBC (Bld) 1.2 % Normal . [facility] Comment on above: Performed By: #### C BC, PTT, CKMB, BMP, CK, BNP, PT, HS TROP #### [address] Eosinophils (Bld) [#/Vol] 0.2 10*3/uL Normal 0.0-0.45 [facility] Comment on above: Performed By: #### C BC, PTT, CKMB, BMP, CK, BNP, PT, HS TROP #### [address] Eosinophils/100 WBC (Bld) 3.2 % Normal . [facility] Comment on above: Performed By: #### C BC, PTT, CKMB, BMP, CK, BNP, PT, HS TROP #### [address] Erythrocyte distribution width (RBC) [Ratio] 13.5 % Normal 11.9-15.3 [facility] Comment on above: Performed By: #### C BC, PTT, CKMB, BMP, CK, BNP, PT, HS TROP #### [address] Hematocrit (Bld) [Volume fraction] 36.8 % Normal 34.0-46.4 [facility] Comment on above: Performed By: #### C BC, PTT, CKMB, BMP, CK, BNP, PT, HS TROP #### [address] Hemoglobin (Bld) [Mass/Vol] 12.2 g/dL Normal 11.8-15.4 [facility] Comment on above: Performed By: #### C BC, PTT, CKMB, BMP, CK, BNP, PT, HS TROP #### [address] Lymphocytes (Bld) [#/Vol] 2.3 10*3/uL Normal 1.00-4.8 [facility] Comment on above: Performed By: #### C BC, PTT, CKMB, BMP, CK, BNP, PT, HS TROP #### [address] Lymphocytes/100 WBC (Bld) 37.1 % Normal . [facility] Comment on above: Performed By: #### C BC, PTT, CKMB, BMP, CK, BNP, PT, HS TROP #### [address] MCH (RBC) [Entitic mass] 29.5 pg Normal 24.7-34.3 [facility] Comment on above: Performed By: #### C BC, PTT, CKMB, BMP, CK, BNP, PT, HS TROP #### [address] MCV (RBC) [Entitic vol] 89.0 fL Normal 80-100 [facility] Comment on above: Performed By: #### C BC, PTT, CKMB, BMP, CK, BNP, PT, HS TROP #### [address] Mean Corpuscular HGB Conc 33.2 g/dL Normal 32.0-35.0 [facility] Comment on above: Performed By: #### C BC, PTT, CKMB, BMP, CK, BNP, PT, HS TROP #### [place] [address] [place] Monocytes (Bld) [#/Vol] 0.5 10*3/uL Normal 0.0-0.8 [facility] Comment on above: Performed By: #### C BC, PTT, CKMB, BMP, CK, BNP, PT, HS TROP #### [address] Monocytes/100 WBC (Bld) 8.7 % Normal . [facility] Comment on above: Performed By: #### C BC, PTT, CKMB, BMP, CK, BNP, PT, HS TROP #### [address] Neutrophils (Bld) [#/Vol] 3.1 10*3/uL Normal 1.8-7.7 [facility] Comment on above: Performed By: #### C BC, PTT, CKMB, BMP, CK, BNP, PT, HS TROP #### [address] Neutrophils/100 WBC (Bld) 49.8 % Normal . [facility] Comment on above: Performed By: #### C BC, PTT, CKMB, BMP, CK, BNP, PT, HS TROP #### [place] [address] [place] Nucleated RBC/100 WBC (Bld) [Ratio] 0.0 % Normal 0-0.5 [facility] Comment on above: Performed By: #### C BC, PTT, CKMB, BMP, CK, BNP, PT, HS TROP #### [place] [address] [place] Platelet mean volume (Bld) [Entitic vol] 9.7 fL Normal 6.3-10.7 [facility] Comment on above: Performed By: #### C BC, PTT, CKMB, BMP, CK, BNP, PT, HS TROP #### [address] [place] [address] [place] Platelets (Bld) [#/Vol] 219 10*3/uL Normal 150-450 [facility] Comment on above: Performed By: #### C BC, PTT, CKMB, BMP, CK, BNP, PT, HS TROP #### [address] RBC (Bld) [#/Vol] 4.13 10*6/uL Normal 3.60-5.00 [facility] Comment on above: Performed By: #### C BC, PTT, CKMB, BMP, CK, BNP, PT, HS TROP #### [address] WBC (Bld) [#/Vol] 6.3 10*3/uL Normal 4.5-11.0 [facility] Comment on above: Performed By: #### C BC, PTT, CKMB, BMP, CK, BNP, PT, HS TROP #### [address] Creatine Kinaseon 02-12-2021 CK [Catalytic activity/Vol] 178 U/L Normal 22-269 [facility] Comment on above: Performed By: #### C BC, PTT, CKMB, BMP, CK, BNP, PT, HS TROP #### [address] Creatinine Kinase MBon 02-12 CK.MB [Mass/Vol] 2.5 ng/mL Normal 0.6-6.3 [facility] Comment on above: Performed By: #### C BC, PTT, CKMB, BMP, CK, BNP, PT, HS TROP #### [address] CKMB Relative Index 1.4 % Normal 0.00-2.50 [facility] Comment on above: Performed By: #### C BC, PTT, CKMB, BMP, CK, BNP, PT, HS TROP #### [place] [address] [place] Partial Thromboplastin Timeo n 02-12-2021 aPTT Coag (Bld) [Time] 29.3 s Normal 25.1-36.5 [facility] Comment on above: Result Comment: PERF ORMED BY: [place] [address] PATHOLOGIST FILM ARCHIVIST NICANOR BALTAZAR M.D. Performed By: #### C BC, PTT, CKMB, BMP, CK, BNP, PT, HS TROP #### [address] Prothrombin Time INRon 02-12 INR Coag (PPP) [Relative time] 1.0 {INR} Normal [facility] Comment on above: Result Comment: INR Therapeutic [...] BMP, CK, BNP, PT, HS TROP #### [address] PT Coag (PPP) [Time] 11.5 s Normal 9.0-12.[address] [facility] Comment on above: Performed By: #### C BC, PTT, CKMB, BMP, CK, BNP, PT, HS TROP #### [address] Troponin I High Sensitivityo n 02-12-2021 Troponin I High Sensitivity 5 pg/mL Normal 0-15 [facility] Comment on above: Result Comment: PERF ORMED BY: [place] [address] PATHOLOGIST FILM ARCHIVIST NICANOR BALTAZAR M.D. Performed By: #### C BC, PTT, CKMB, BMP, CK, BNP, PT, HS TROP #### [address] XR chest 2V*on 02-12-2021 XR chest 2V* [facility] [address] [address] XRay Report Signed Patient: Alyssa Lopez MR#: [id number] : 1965 Acct:[id number] Age/Sex: 55 / F ADM Date: 02/11/21 Loc: ER Room: Type: [facility] ER Attending Dr: Ordering Provider: Stefan Carolina [...] Reid Graves M.D.02/12/2021 9:18 AM Dictation Location: [place] [address] Transcribed By: [facility] 02/12/21917 Dictated By: Reid Graves DO 02/12/21914 Signed By: 02/12/21917 Normal [facility] ECG 12 lead ECGon 02-11-2021 ECG 12 lead ECG [facility] [address] [address] Electrocardiograph Report Signed Patient: Alyssa Lopez MR#: [id number] : 1965 Acct:[id number] Age/Sex: 55 / F ADM Date: 02/11/21 Loc: ER Room: Type: [facility] ER Attending Dr: Ordering Provider: Stefan Carolian DO Date of Service: 02/11/2111/24/2110 ECG/ECG 12 [...] ECGs available Confirmed by Stefan Carolina DO ([id number]) on 02/11/2021 11:41:46 PM Referred By: Electronically Signed By:Stefan Carolina DO Transcribed By: MUS Signed By Stefan Carolina DO 02/11 2341 [facility] Vital Signs Date Time Vital Sign Value Performing Clinician Naomii steven 05-26-2022 08:49-0500 Blood Pressure Location Hoda SALMON [facility] 05-26-2022 08:49-0500 Diastolic blood pressure 74 mm[Hg] Hoda SALMON [facility] 05-26-2022 08:49-0500 Heart rate 70 /min Hoda SALMON [facility] 05-26-2022 08:49-0500 Respiratory rate 16 /min Hoda SALMON [facility] 05-26-2022 08:49-0500 Systolic blood pressure 128 mm[Hg] Hoda SALMON [facility] Encounters Encounter Date Encounter Type Care Provider Facility Start: 09-29-2023 Telephone encounter Ines Coker MD Work Phone: Neurology Comment on above: EMG- FAXED RESULTS Start: 09-29-2023 End: 09-29-2023 ambulatory INES COKER [facility] Start: 09-29-2023 End: 09-29-2023 Patient encounter procedure Emg 2 Neur [facility] (Max Weight 400) [facility]rology [facility] Start: 08-28-2023 Telephone encounter Ines Coker MD Work Phone: Neurology Comment on above: EMG Instructions Start: 08-25-2023 Orders Only Laine pimentel CNP Work Phone: Neurology Comment on above: Sprain of left wrist , sequela (Primary Dx); Carpal tunnel syndrome of left wrist Start: 08-20-2023 Telephone encounter Lucio prasad MD Work Phone: Orthopaedic Surgery [facility] Start: 08-13-2023 End: 08-13-2023 Patient encounter procedure Lucio Mixon MD Work Phone: Orthopaedic Surgery [facility] Comment on above: Numbness and tinglin g in left hand (Primary Dx) Start: 08-13-2023 End: 08-13-2023 ambulatory LAINE BÁRBARA Facility:[facility] Start: 07-31-2023 Orders Only Lucio Mixon MD Work Phone: Referring Physician Comment on above: Pain (Primary Dx) Start: 07-06-2023 End: 07-07-2023 ambulatory Hoda SALMON Facility:[facility] Start: 07-06-2023 End: 07-06-2023 Patient encounter procedure Hoda SALMON [facility] Start: 06-30-2023 ambulatory [facility] Start: 04-22-2023 ambulatory [facility] Start: 02-10-2023 ambulatory [facility] Start: 11-26-2022 ambulatory [facility] Start: 10-15-2022 End: 10-15-2022 ambulatory [facility] Start: 10-01-2022 End: 10-01-2022 ambulatory [facility] Start: 08-15-2022 Encounter for genera l adult medical examination without abnormal findings DR SHAI LAU . [facility] Start: 08-14-2022 End: 08-15-[address] SHAI LAU . Facility: Start: 08-14-2022 End: 08-15-2022 Encounter for general adult medical examination without abnormal findings DR SHAI LAU . Facility:[facility] Start: 08-12-2022 End: 08-13-[address] HODA SALMON . Facility:[facility] Start: 05-26-2022 End: 05-26-2022 Patient encounter procedure Hoda SALMON [facility] Start: 05-22-2022 End: 05-23-[address] HODA SALMON . Facility:[facility] Start: 11-15-2021 End: 11-15-[address] SHAI LAU . Facility:[facility] Start: 11-12-2021 End: 11-12-[address] SHAI LAU . Facility:[facility] Start: 07-02-2021 End: 07-02-2021 Lab Drop off EMERITA Yosef PRINCE [facility] Start: 07-02-2021 End: 07-02-2021 Patient encounter procedure Toni Carrera Jr. [facility] Procedures Date Procedure Procedure Detail Performing [...] Influenza vaccination Influenz a Vaccine (Season Ended) [facility] Start: 09-29-2023 End: 09-29-2023 ambulatory 09/29/2023 9:25 AM EDT Procedure Neurology EMG [facility] [address] [place] [address] EMG STANDARD Neurology EMG [facility] Comment on above: EMG STANDARD Start: 08-13-2023 End: 08-13-2023 Patient encounter procedure Xray [facility] Comment on above: sprain of left wrist , alin is coming in for seccond opinion, had carple tunnel surgery on this wrist october 02, 2022 Start: 04-06-2023 Behavioral Health Screening Behavioral Health Screening [facility] Start: 12-05-2022 Covid-19 Vaccine () Covid-19 Vaccine () [facility] Start: 12-05-2022 Covid-19 Vaccine () Covid-19 Vaccine () [facility] Start: 06-09-2015 Shingrix Vaccine (1 of 2) Shingrix Vaccine (1 of 2) [facility] Start: 2010 Diabetes Screening Diabetes Screenin g [facility] Start: 2010 Lipid panel Lipid Screening [facility] Start: 2010 Screening for malign ant neoplasm of colon [facility] Start: 2005 Screening for malign ant neoplasm of breast Mammogram Screening [facility] Start: 06-09-1995 Screening for malign ant neoplasm of cervix HPV Testing [facility] Start: 1986 Screening for malign ant neoplasm of cervix [facility] Start: 1984 Hepatitis B Vaccine (1 of 3 - 19+ 3-dose series) Hepatitis B Vaccine (1 of 3 - 19+ 3-dose series) [facility] Start: 1984 Urine microalbumin profile DTaP,Tdap,Td Vaccine (1 - Tdap) [facility] Start: 06-09-1983 Hepatitis C screening Hepatitis C Sc kailey [facility] Start: 06-09-1983 HIV screening HIV Screening [facility] End: 08-24-2024 EMG(NEURO/NI) EMG(NEURO/NI) EMG Routine Sprain of left wrist, sequela Carpal tunnel syndrome of left wrist 1 Occurrences starting 08/25/2023 until 08/24/2024 [facility] Work Phone: Comment on above: 1 Occurrences starti ng 08/25/2023 until 08/24/2024 End: 08-29-2024 XR Wrist - left 4 Views XR WRIST INJURY 4V PA/LAT/OBL/SCAPH LEFT Radiology Routine Pain 1 Occurrences starting 07/31/2023 until 08/29/2024 [facility] Comment on above: 1 Occurrences starti ng 07/31/2023 until 08/29/2024 End: 08-29-2024 XR Wrist - left PA and Lateral and Oblique XR WRIST GENERAL 3V PA/LAT/OBL LEFT Radiology Routine Pain 1 Occurrences starting 07/31/2023 until 08/29/2024 [facility] Work Phone: Comment on above: 1 Occurrences starti ng 07/31/2023 until 08/29/2024 Immunizations Immunization Date Immunization Notes Care Provider Mihai bradshaw 02-26-2022 influenza virus vaccine, unspecified formulation Lucio Mixon MD Work Phone: [facility] 08-08-2020 SARS-CoV-2 (COVID-19 ) Ad26 vaccine, recombinant Toni Carrera Jr. [facility] 07-18-2020 SARS-CoV-2 (COVID-19 ) Ad26 vaccine, recombinant Toni Carrera Jr. [facility] Payers Date Payer Category Payer Private Health Insurance [facility] GEHA CHOICE PLUS [id number] 2023-Present [phone] [address] [address] [place] [address] PPO [id number] [facility] DEPT OF L [employer] FECA [id number] 2019-Present [phone] [address] [place] [address] WC [id number] 2019 Unknown [id number] 1965 Unknown [id number] 1965 Unknown [id number] .[id number] 1965 Unknown [id number] .[id number] 1965 Unknown [id number] .[id number] 1965 Unknown [id number] .[id number] 1965 Unknown [id number] .[id number] 1965 Unknown [id number] 1959 Unknown [id number] Social History Date Type Detail Facility Start: 07-06-2014 End: 05-13-2021 Tobacco smoking status Never smoked tobacco (finding) [facility] Start: 08-13-2023 Sex Assigned At Female [facility] Start: 07-28-2014 End: 08-13-2023 Alcohol intake Current drinker of alcohol (finding) [facility] Start: 1965 Sex Assigned At Not on file [facility] Start: 08-13-2023 History of Social function [facility] National Score (1-10 0), lower number is lower risk 46 [facility] Functional Status Date Assessment Result Facility 05-26-2022 Functional Status N/A [facility] Clinical Notes 05-26-2022 to 09-29-2023 Telephone Encounter - Neema Campos - 09/29/2023 2:14 PM EDTTelephone Encounter - Neema Campos - 09/29/2023 2:14 PM Ramsey Lopez MD - 09/29/2023 9:05 AM EDT Note Date & Type Note Facility 09-29-2023 Telephone encounter Note Results from EMG performed on 09/29/2023 were faxed to Laine Granger at fax number on 09/29/2023. Fax confirmation received. [facility] 09-29-2023 Miscellaneous Notes Results from EMG performed on 09/29/2023 were faxed to Laine Granger at fax number on 09/29/2023. Fax confirmation received. documented in this encounter [facility] 09-29-2023 History of Presen t illness Narrative [...] MD Neuromuscular Medicine (NM) Staff Neuromuscular Center, [facility] documented in this encounter [facility] 09-29-2023 Note HNO ID: [id number] Author: RAMSEY NDIAYE MD Service: ? Author [...] MD Neuromuscular Medicine (NM) Staff Neuromuscular Center, [facility] [place] [facility] 08-28-2023 Telephone encounter Note Spoke with Alyssa [...] testing. Patient expressed understanding with these instructions. [facility] 08-28-2023 Miscellaneous Notes Spoke with Alyssa Lopez [...] with these instructions. documented in this encounter [facility] 08-24-[address] Mixon's note still not completed, I did call Nayeli at [employer]. We did discuss that the patient needs to find their old nerve conduction study and get a new nerve conduction study (Study can be request by POR) and then should follow-up with Dr. Mixon to discuss both. [facility] Work Phone: 08-24-[address] Mixon's [...] for the 08/13/23 visit. Please fax to [phone] Callback number: [phone] Fax Number (if necessary): [phone] Additional info if needed (Prior Auth #, Claim #, etc ): N/A Karly Leija documented in this encounter [facility] 08-20-2023 Telephone encounter Note Name of Caller: Nayeli at [facility] Relationship to patient: Last visit in this department: 08/13/2023 Reason for Call: Other : Nayeli calling from [facility] to get office notes and any test results if applicable for the 08/13/23 visit. Please fax to [phone] Callback number: [phone] Fax Number (if necessary): [phone] Additional info if needed (Prior Auth #, Claim #, etc ): N/A Karly Leija [facility] 08-13-2023 Note HNO ID: [id number] Author: LUCIO MIXON MD Service: ? Author Type: Physician Type: Progress Notes Filed: 09/08/2023 16:53 Note Text: Lucio Mixon MD Department of Orthopaedics Orthopaedic Surgery [facility] [address] [facility] [address] Dept: [phone] Dept August 13, 2023 CHIEF COMPLAINT: New [...] her origional EMG test. SHe'll have her [facility] get an c9 for a new [...] ONE DAILY MULTIVITAMIN ORAL Take by mouth. Neihart-3 Fatty Acids-Vitamin E (FISH OIL) 1,000 mg [...] US mail. Laine Granger CNP [address] [facility] [address] Lucio Mixon MD [facility] 08-13-2023 History of Presen t illness Narrative Lucio Mixon MD Department of Orthopaedics Orthopaedic Surgery [facility] [address] [facility] [address] Dept: [phone] Dept August 13, 2023 CHIEF COMPLAINT: New [...] ONE DAILY MULTIVITAMIN ORAL Take by mouth. Neihart-3 Fatty Acids-Vitamin E (FISH OIL) 1,000 mg [...] physician via US mail. Laine Granger CNP [address] [place], [place] [id number] Lucio Mixon MD documented in this encounter [facility] 08-13-2023 Note HNO ID: [id number] Author: CONSTANCE VERMA RT(R) Service: ? Author [...] PATIENT PRESENTS WITH AN IMPLANTABLE OR ATTACHED ETL CONSULTANT: No RADIOLOGY DEPARTMENT: General X-ray: Exam(s) Completed: Upper Extremity X-Ray(s): Wrist, left PERIPHERAL IV DATA: Not applicable SIGNED BY: RT Brian(R) August 13, 2023 9:24 AM [facility] 04-22-2023 Note Patient ID: Alyssa Lopez is [...] to verify the correct patient, procedure, equipment, bioinformatics support specialist and site/side marked as required. [facility] 02-10-2023 Note Orthopedic Surgery Subjective 10/01/2022 [...] disease) Kidney stone Migraines Objective Left Hand: Uystxnnpot-vter-ftncjy scar from carpal tunnel incision. Thumb: normal A1 winnie and AROM, Index finger: normal A1 winnie and AROM, Long finger: normal A1 winnie and AROM, Ring finger: normal A1 winnie and AROM, and Small finger: normal A1 winnie and AROM Strength: heat plant specialist 4+/5, thumb 4+/5, interossei 5/5 Sensation: intact [...] and see her back at that time. [facility] 11-26-2022 Note Attestation signed by Max [...] disease) Kidney stone Migraines Objective Left Hand: Rmeopmsayc-cehe-wwbruc scar from carpal tunnel incision. Thumb: normal A1 winnie and AROM, Index finger: normal A1 winnie and AROM, Long finger: normal A1 winnie and AROM, Ring finger: normal A1 winnie and AROM, and Small finger: normal A1 winnie and AROM Strength: heat plant specialist 5/5, thumb 5/5, interossei 5/5 Sensation: intact [...] SHERIFF MD Orthopedic Surgery, PGY-2 Ortho Pager [phone] 11/26/22 3:14 PM [facility] 10-15-2022 Note Attestation signed by Max [...] SHERIFF MD Orthopedic Surgery, PGY-2 Ortho Pager [phone] 10/15/22 1:20 PM [facility] 10-01-2022 Note Patient: Guillermina curry Procedure Summary Date: 10/01/22 Room / Location: [facility] OR [address] [place] [address] OR Anesthesia Start: 833 Anesthesia Stop: 899 [...] per anesthesia protocol. No notable events documented. [facility] 10-01-2022 Note Patient: Guillermina curry Procedure Information Date/Time: 10/01/22829 Procedure: CARPAL TUNNEL RELEASE (Left: Hand) Location: [address] OR Surgeons: Max Kowalski MD Relevant [...] Plan discussed with attending. Additional Equipment Requests [facility] 05-26-2022 [facility] Discharg e instructions Follow Up Care 05/26/2022 09:33:22 With:JEFFREY AVELAR, Hoda Rios, URL Address: [facility] [address] [place] [address] [phone] When: Unknown [facility] 05-26-2022 Hospital Discharg e instructions Patient Education [...] include: ?Spinach. ?Rhubarb. ?Beets. ?Potato chips and citizen of [place] fries. ?Nuts. If you regularly take a diuretic medicine, make sure to eat at least 1 2 fruits or vegetables high in potassium each day. These include: ?Avocado. ?Banana. ?Hitchcock, prune, carrot, or tomato juice. ?Baked potato. [...] Casseroles. Pizza. Lasagna. Frozen meals. Potato chips. Citizen [place] fries. Summary You can reduce your risk [...] 07/18/2011 Document Revised: 07/13/2019 Document Reviewed: 03/03/2017 [employer] Patient Education 2020 [employer]. Follow Up Care 05/13/2021 09:33:00 With:Hoda SALMON MD, URL Address: [facility] [address], [place] [address]- When: Unknown [facility] Evaluation + Plan note Future Appointments Appointment Date:05/26/2022 08:45:00 AM Scheduled Provider:Hoda SALMON MD Location:[facility] Appointment Type:URO Office Visit [facility] Evaluation + Plan note Future Appointments Appointment Date:05/26/2022 08:45:00 AM Scheduled Provider:Hoda SALMON MD Location:[facility] Appointment Type:URO Office Visit Diagnostic Tests PendingUrine Culture 07/02/21 [facility] Evaluation + Plan note Future Appointments Appointment Date:05/29/2023 08:00:00 AM Scheduled Provider:[facility] Office Visit [facility] Evaluation note Diagnosis Pain- Primary Generalized pain [facility] Diagnosis Sprain of left wrist, sequela- Primary Carpal tunnel syndrome of left wrist Carpal tunnel syndrome documented in this encounter [facility] note* Diagnosis Numbness and tingling in left hand- Primary Disturbance of skin sensation documented in this encounter [facility] note* Diagnosis Sprain of left wrist, sequela Carpal tunnel syndrome of left wrist Carpal tunnel syndrome [facility] Narrative No data available for this section [facility] Hospital Discharge instructions No data available for this section [facility] progress note No data available for this section [facility] Loud3r reason for referral (narrative)* Diagnostic Procedure Only (Routine) - Pending Review Specialty Diagnoses / Procedures Referred By Contac t Referred To Contact XR IMAGING Diagnoses Pain Procedures XR WRIST INJURY 4V PA/LAT/OBL/SCAPH LEFT RADEX WRIST COMPLETE MINIMUM 3 VIEWS Lucio Mixon MD [address] [place] [phone] [place] [address] Referral ID Status Reason Start Date Expiration Date Visits Requested Visits Authorized [id number] Pending Review Auto-Generat ed Referral 07/31/2023 08/29/2024 1 1 * Diagnostic Procedure Only (Routine) - Authorized Specialty Diagnoses / Procedures Referred By Contac t Referred To Contact XR IMAGING Diagnoses Pain Procedures XR WRIST GENERAL 3V PA/LAT/OBL LEFT RADEX WRIST COMPLETE MINIMUM 3 VIEWS Lucio Mixon MD [address] [place] [phone] [place] [address] Referral ID Status Reason Start Date Expiration Date Visits Requested Visits Authorized [id number] Authorized Auto-Generat ed Referral 07/31/2023 08/29/2024 1 1 [facility] for referral (narrative)* Outpatient Procedure (Routine) - Pending Review Specialty Diagnoses / Procedures Referred By Janessa harris Referred To Contact [facility] Diagnoses Sprain of left wrist, sequela Carpal tunnel syndrome of left wrist Procedures EMG(NEURO/NI) NERVE CONDUCTION STUDIES 9-10 STUDIES Ines Coker MD [address] [place] [address] [facility] [place] [address] [place] [id number] Referral ID Status Reason Start Date Expiration Date Visits Requested Visits Authorized [id number] Pending Review Auto-Generat ed Referral 08/25/2023 08/24/2024 1 1 [facility] Summary Purpose Family History No Family [...] section and content) DATE CREATED AUTHOR 05/29/2021 [facility] DATE CREATED AUTHOR AUTHOR'S ORGANIZ ATION 08/21/2022 [facility] DATE CREATED AUTHOR AUTHOR'S ORGANIZ ATION 07/01/2023 [facility] DATE CREATED AUTHOR AUTHOR'S ORGANIZ ATION 07/07/2023 [facility] DATE CREATED AUTHOR AUTHOR'S ORGANIZ ATION 09/30/2023 [facility] Patient Care team informatio n (unrecognized section and content) Psychometrician Relationship Specialty Start Date End Date Laine Granger CNP [address] [place] [address] Family Medicine 07/24/23 Psychometrician Relationship Specialty Start Date End Date Laine Granger CNP [address] [place] [address] Referring Family Medicine 07/24/23 Psychometrician Relationship Specialty Start Date End Date Laine Granger CNP [address] [place] [address] Referring Family Medicine 07/24/23 Psychometrician Relationship Specialty Start Date End Date Laine Granger CNP [address] [place] [address] Referring Family Medicine 07/24/23 Psychometrician Relationship Specialty Start Date End Date Laine Granger CNP [address] [place] [address] Referring Family Medicine 07/24/23 Source Comments (unrecognize d section and content) In the event this informatio n is protected by the Federal Confidentiality of Alcohol and Drug Abuse Patient Records regulations: The Federal rules restrict any use of the information to criminally investigate or prosecute any alcohol or drug abuse patient.[facility] the event this information is protected by the Federal Confidentiality of Alcohol and Drug Abuse Patient Records regulations: The Federal rules restrict any use of the information to criminally investigate or prosecute any alcohol or drug abuse patient.[facility] the event this information is protected by the Federal Confidentiality of Alcohol and Drug Abuse Patient Records regulations: The Federal rules restrict any use of the information to criminally investigate or prosecute any alcohol or drug abuse patient.[facility] the event this information is protected by the Federal Confidentiality of Alcohol and Drug Abuse Patient Records regulations: The Federal rules restrict any use of the information to criminally investigate or prosecute any alcohol or drug abuse patient.[facility] the event this information is protected by the Federal Confidentiality of Alcohol and Drug Abuse Patient Records regulations: The Federal rules restrict any use of the information to criminally investigate or prosecute any alcohol or drug abuse patient.[facility] the event this information is protected by the Federal Confidentiality of Alcohol and Drug Abuse Patient Records regulations: The Federal rules restrict any use of the information to criminally investigate or prosecute any alcohol or drug abuse patient.[facility] the event this information is protected by the Federal Confidentiality of Alcohol and Drug Abuse Patient Records regulations: The Federal rules restrict any use of the information to criminally investigate or prosecute any alcohol or drug abuse patient.[facility] Reason for Visit (unrecogniz ed section and content) Reason Comments EMG Instructions Reason Comments New Pain Specialty Diagnoses / Procedures Referred By Contac t Referred To Contact Orthopedics / ORTHOPAEDIC SURGERY Diagnoses sprain of left wrist, alin is coming in for seccond opinion, had carple tunnel surgery on this wrist october 02, 2022 Procedures [facility] Laine Granger, C[employer]IP RO[employer]ER [address] [place] [address] Lucio Mixon MD [address] [place] [address] Referral ID Status Reason Start Date Expiration Date V isits Requested Visits Authorized [id number] Closed Patient Cleared - Admin/Chairm an/Director advise to proceed or did not respond 08/13/2023 08/13/2023 1 1 Specialty Diagnoses / Procedures Referred By Charlesac t Referred To Contact [facility] Diagnoses Sprain of left wrist, sequela Carpal tunnel syndrome of left wrist Procedures EMG(NEURO/NI) NERVE CONDUCTION STUDIES 9-10 STUDIES Ines Coker MD [address] [place] [address] [facility] [place] [address] [place] [address] Referral ID Status Reason Start Date Expiration Date V isits Requested Visits Authorized [id number] Closed Auto-Generate d Referral 09/29/2023 10/29/2023 1 [...] BE BASED ON THE PRIMARY CLINICAL RECORDS. [facility] [employer] [facility]. provides no warranty or guarantee of the accuracy or completeness of information in this document.
== END 2023-12-02 11:17 | disposition home or self-care (01) ==
LOC: EC 11:16
PROVIDERS: PCP Family Medicine; Visit Provider Podiatrist Foot & Ankle Surgery
DX: M25.572 Pain in left ankle and joints of left foot (principal); M19.072 Primary osteoarthritis, left ankle and foot
CPT/HCPCS: 73610; 73630

== ENCOUNTER 2023-12-17 12:44 | Outpatient (OUT) | payer OTHER, SELFPAY ==
[2023-12-17 07:37] VITALS: BP 140/74; PULSE 72; O2SAT 100; BMI 38.7
--- NOTE | 2023-12-17 07:37 | VEINCLINIC_ITS ---
Vital Signs 12/17/23 07:37 Height 5 ft 3 in Weight 99 kg BMI 38.7 BP 140/74 BP Location Left Brachial BP Position Sitting BP Cuff Size Adult BP Source Manual Cuff Respiration 18 Pulse 72 Pulse Oximetry (%) 100 Comment The patient's blood pressure is elevated. Varicose Veins Patient is in this day for EVLT of Left leg AASV. Carlos Cristobal MD personally performed the services described in this documentation, as scribed by Ginger Friedman RVT, RDMS in my presence and it is both accurate and complete. Ginger Cristobal RVT, RDMS, am scribing for, and in the presence of, Dr. Carlos Conde and in the presence of the patient. thigh: bilateral (left > right leg), knee: bilateral, calf: bilateral, ankle: bilateral and funez: bilateral aching, cramping and tender 37 years Worsened in recent months: Yes standing and walking elevating extremities, compression stockings and exercise Reports muscle spasms of leg, fatigue, heaviness, restless legs, edema and leg edema History of lower extremity trauma: No Superficial thrombophlebitis: Yes (DVT to left leg) Family history of varicose veins: yes Has patient had previous lower extremity venous surgery: No Patient has previously received the following treatment(s) for lower extremity varicose veins: Reports none Does patient have a history of : yes Does patient intend to have future pregnancies: no Has patient had lower extremity venous scan with relux testing: No Support hose used: Yes Problems walking or doing physical activity: Yes How does it affect you: often has to rest and elevate legs/feet while and effects work Do you walk much: Yes Do you stand much: Yes Review of Systems ROS Narrative Carlos Cristobal MD personally performed the services described in this documentation, as scribed by Ginger Friedman RVT, RDMS in my presence and it is both accurate and complete. Ginger Cristobal RVT, RDMS, am scribing for, and in the presence of, Dr. Carlos Conde and in the presence of the patient. Status of ROS 10 or more systems reviewed and unremark able except as noted in history and below Cardiovascular Reports: edema Integumentary/Breast Reports: skin swelling Neurological Reports: weakness in extremities [facility] Medical History (Updated 09/12/24 @ 07:50 by Ginger Friedmna) Phlebitis and thrombophlebitis of superficial vessels of left lower extremity ?I80.02 - Phlebitis and thrombophlebitis of superficial vessels of left lower extremity (ICD-10) Varicose veins of bilateral lower extremities with pain ?I83.813 - Varicose veins of bilateral lower extremities with pain (ICD-10) Plantar fascial fibromatosis ?M72.2 - Plantar fascial fibromatosis (ICD-10) Contracture, left ankle ?M24.572 - Contracture, left ankle (ICD-10) Vertigo ?R42 - Dizziness and giddiness (ICD-10) Chronic cystitis ?N30.20 - Other chronic cystitis without hematuria (ICD-10) Chronic kidney disease ?N18.9 - Chronic kidney disease, unspecified (ICD-10) Urinary tract infection ?N39.0 - Urinary tract infection, site not specified (ICD-10) COVID-19 (04/16/23) ?U07.1 - COVID-19 (ICD-10) Migraine ?G43.909 - Migraine, unspecified, not intractable, without status migrainosus (ICD-10) S/P extracorporeal shock wave therapy ?Z98.890 - Other specified postprocedural states (ICD-10) Kidney stones ?N20.0 - Calculus of kidney (ICD-10) Seasonal allergies ?J30.2 - Other seasonal allergic rhinitis (ICD-10) GERD (gastroesophageal reflux disease) ?K21.9 - Gastro-esophageal reflux disease without esophagitis (ICD-10) Surgical History (Updated 05/19/23 @ 11:30 by Cathi Rios NP) History of endometrial ablation ?Z98.890 - Other specified postprocedural states (ICD-10) History of spinal surgery ?Z98.890 - Other specified postprocedural states (ICD-10) History of tonsillectomy ?Z90.89 - Acquired absence of other organs (ICD-10) H/O hand surgery ?Z98.890 - Other specified postprocedural states (ICD-10) History of foot surgery ?Z98.890 - Other specified postprocedural states (ICD-10) History of carpal tunnel release ?Z98.890 - Other specified postprocedural states (ICD-10) Family History (Updated 11/12/23 @ 10:49 by Stefan Hood) Other Family history of diabetes mellitus Family history of hypertension Family history of myocardial infarction Pain due to varicose veins of both lower extremities Social History Within the past year, how often did you have a drink containing alcohol: 2-4 ti mes a month Smoking status: Never smoker Non-prescribed substance use: denies use Previous occupational history: [employer] Highest level of school completed/degree received: high school graduate Meds Home Medications and Allergies Home Medications ?Medication ?Instructions ?Recorded ?Confirmed ?Type cetirizine 10 mg tablet (Zyrtec) 10 mg PO DAILY PRN allergy symptoms 05/19/23 11/12/23 History lansoprazole 30 mg capsule,delayed 30 mg PO DAILY 05/19/23 11/12/23 History release multivitamin (Daily Multi-Vitamin 1 tab PO DAILY 05/19/23 11/12/23 History tablet) ondansetron 4 mg disintegrating 4 mg PO Q8H PRN nausea and 06/04/23 11/12/23 Rx tablet vomiting 5 days #15 tabs tizanidine 2 mg tablet 2 mg PO TID PRN muscle spasticity 06/04/23 11/12/23 Rx 7 days #21 tabs Allergies Allergy/AdvReac Type Severity Reaction Status Date / Time levofloxacin [From Levaquin] Allergy Muscle Pain Verified 06/29/23 14:18 phenobarbital Allergy Unknown Verified 06/29/23 14:18 Sulfa (Sulfonamide Allergy Rash Verified 06/29/23 14:18 Antibiotics) Exam Narrative Exam Narrative: ICarlos MD personally performed the services described in this documentation, as scribed by Ginger Friedman RVT, RDMS in my presence and it is both accurate and complete. IGinger RVT, RDMS, am scribing for, and in the presence of, Dr. Carlos Conde and in the presence of the patient. Constitutional Documenting provider has reviewed patient's vital signs: yes Common normals: oriented x3 Nutritional appearance: overweight Cardio Peripheral pulses: dorsalis pedis pulses present Extremity Common normals: normal capillary refill General: edema Right lower extremity: lower leg Right lower leg: inspection and palpation Left lower extremity: lower leg Left lower leg: inspection and palpation Neuro Common normals: oriented x3 Assessment and Plan Assessment and Plan (1) Varicose veins of bilateral lower extremities with pain: Plan Plan of care: Risks and benefits of the procedure were discussed at length and informed written consent was obtained.? Time-out completed for verification of correct patient, procedure and site.? Staff present during time-out: ? Carlos Conde MD, Ginger Friedman RDMS,RVT, Stefan Hood RN, and Nel James RDMS Time Out Time_12/17/23 @1337 Patient prepped and procedure performed in usual sterile fashion. Risk of injury related to use of Diode laser and/or laser devices? __ME___ ? Serial number of laser used :? [id number] Control panel self test performed, electrical cords in good condition, floor is dry, basin of water available, fire extinguisher in close proximity_EM__ Polycarbonate goggles available and Laser warning signs outside of doors___ME___ Eye protection provided to patient and staff in room_ME___ Use of laser retardant drapes and dull blackened instruments as directed__ME___ Use of nonflammable prep solutions and use of saline soaked sponges to protect tissues as indicated _ME___ Length ___21 cm Laser operated by ___Dr. Conde Physician verbal confirmation laser locked in place__ME__ Laser start time (date and time) ____12/17/23 @ 1346 Laser stop time(date and time) __12/17/23 @1348 Guillen _8.0___ Average laser use __1048 Joules Average laser use__131 seconds Pulse continuous ___ME_? Pulse intermittent ___ Amount of Tumescent used __150____ Evaluated patient for signs and symptoms of electrical injury __ME___ ? Skin clear at insertion site __ME__ Patient tolerated procedure well.? Left leg Coban dressing applied to access site.? Applied Left thigh high leg compression stocking. Will return on 12/23/23 for Left leg limited venous ultrasound and exam. I, Carlos Conde MD personally performed the services described in this documentation, as scribed by Ginger Friedman RVT, RDMS in my presence and it is both accurate and complete. I, Ginger Friedman RVT, RDMS, am scribing for, and in the presence of, Dr. Carlos Conde and in the presence of the patient. Procedures Procedure Note Date of procedure: 12/17/23 Pre-op diagnosis: I83.813 Procedure: EVLT of left leg AASV Surgeon: Carlos Conde
--- NOTE | 2023-12-17 07:49 | P.DS_ITS ---
Discharge Plan Discharge Disposition: Home, Self-Care Outpatient Diagnostics: VC Facility EST LMTD (Routine) Timeframe: 2 Weeks Facility: [facility] - Location: [facility] Ordered By: Carlos Conde VC EXT Venous LT Limited (Routine) Timeframe: 2 Weeks Facility: [facility] - Location: Vein Center Ordered By: Carlos Conde Follow Up Appointments: 12/23/23 Plan of Treatment: Follow up ultrasound post EVLT with follow up with physician Patient Instructions: Endovenous Ablation (DC) Print Language: Belarusian Discharge Date/Time: 12/17/23 15:30
--- NOTE | 2023-12-17 13:09 | VEIN_ITS ---
[address] [address] Patient Name: KASSANDRA LOPEZ MRN: [id number] date: 1965 Sex: F Assigned Patient Location: Current Patient Location: Accession/Order Number: [id number] Exam Date: 12/17/2023 13:09 Report Date: 12/17/2023 14:58 At the request of: CONSTANCE HERNANDEZ Procedure: VC Endovenous Ablation 1VeinLT EXAMINATION: VC Endovenous Ablation 1VeinLT HISTORY: I83.813 - Varicose veins of bilateral lower extremities w... COMPARISON: No relevant comparison available. TECHNIQUE: The risks and benefits of the procedure had been previously discussed, and were rediscussed at length. Informed written consent was obtained. Nadia Almarazeramartinisted. Time out procedure was performed. The left lower extremity was prepared and draped in the usual sterile fashion to allow knee flexion in the sterile field. Duplex ultrasound probe was draped in a sterile cover, sterile transmission gel was used. Venous mapping was performed with the areas of dilation and large tributaries marked. The total length was 21 cm from the entry distal calf to 3 cm below the saphenofemoral junction. The diameter of the anterior accessory saphenous vein ranged from 5-9 mm. A 30 gauge needle and 1% buffered lidocaine was used to anesthetize the entry site. A 4 mm incision was made with a scalpel and the saphenous vein was entered percutaneously under direct ultrasound guidance with a micropuncture set, a single stick was successful in gaining access. A micro-guide wire was inserted and the needle removed. A micro-set including a dilator was inserted over the microwire and the needle and dilator were removed. A 0.018 guide wire was inserted through the micro-set and threaded through the saphenous vein to the saphenofemoral junction. The dilator was removed and an introducer sheath was inserted over the wire until the end of the sheath entered the saphenofemoral junction. The dilator and wire were removed and the 600 micron fiber was introduced and placed and positioned so that it extended beyond the sheath and was 3 cm peripheral to the saphenofemoral femoral junction. Final position of the fiber was determined by ultrasound guidance and duplex imaging. Tumescent anesthetic was delivered by ultrasound guidance. 150 cc of fluid was delivered along the entire course of the saphenous vein. The solution consisted of 1000 cc of normal saline with 40 mL of 1% lidocaine and 20 mL of sodium bicarbonate. A final positioning check was made. The energy source was turned on by means of the foot pedal and the fiber and sheath were withdrawn. The total number of Joules delivered was 1048. The laser was active for 131 seconds under continuous pulse, average laser use of 8 J. Laser start time 1:46 PM 12/17/2023 . Laser stop time 1:48 PM 12/17/2023 . A duplex ultrasound revealed compressibility and flow at the saphenofemoral junction immediately after the procedure. Hemostasis at the access site was achieved. The skin incision of the saphenous vein was closed with a 4 x 4. A compression stocking was applied. Postop instructions were given. A follow up appointment was recommended and scheduled. The patient tolerated the procedure well and was discharged in good condition . VEIN/VC Endovenous Ablation 1VeinLT IMPRESSION: Technically successful endovenous laser ablation of the left anterior accessory saphenous vein Electronically authenticated by: CONSTANCE HERNANDEZ Date: 12/17/2023 14:58
[2023-12-17] MEDS: LIDOCAINE HCL 1% 100 MG/10 ML MDV INJ (13:23)
[2023-12-17] MEDS: 0.9 % SODIUM CHLORIDE 500 ML, LIDOCAINE HCL 20 ML, SODIUM BICARBONATE 10 MEQ INJ (13:24)
== END 2023-12-17 15:30 | disposition home or self-care (01) ==
LOC: VC 12:59
PROVIDERS: PCP Radiology Diagnostic Radiology; Visit Provider Radiology Diagnostic Radiology
DX: I83.813 Varicose veins of bilateral lower extremities with pain (principal)
CPT/HCPCS: 36478

== ENCOUNTER 2023-12-23 09:58 | Outpatient (OUT) | payer OTHER, SELFPAY ==
--- NOTE | 2023-12-23 07:42 | VEINCLINIC_ITS ---
Vital Signs 12/23/23 10:26 Height 5 ft 3 in Weight 99 kg BMI 38.7 Varicose Veins Patient in today for follow up ultrasound of left lower extremity following EVLT of left AASV completed on 12/17/23. Carlos Cristobal MD personally performed the services described in this documentation, as scribed by Nel James RDMS in my presence and it is both accurate and complete. INel RDMS, am scribing for, and in the presence of, Dr. Carlos Conde and in the presence of the patient. thigh: bilateral (left > right leg), knee: bilateral, calf: bilateral, ankle: bilateral and funez: bilateral aching, cramping and tender 37 years Worsened in recent months: Yes standing and walking elevating extremities, compression stockings and exercise Reports muscle spasms of leg, fatigue, heaviness, restless legs, edema and leg edema History of lower extremity trauma: No Superficial thrombophlebitis: Yes (DVT to left leg) Family history of varicose veins: yes Has patient had previous lower extremity venous surgery: No Patient has previously received the following treatment(s) for lower extremity varicose veins: Reports none Does patient have a history of : yes Does patient intend to have future pregnancies: no Has patient had lower extremity venous scan with relux testing: No Support hose used: Yes Problems walking or doing physical activity: Yes How does it affect you: often has to rest and elevate legs/feet 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 Nel Cristobal RDMS, am scribing for, and in the presence of, Dr. Carlos Conde and in the presence of the patient. Status of ROS 10 or more systems reviewed and unremark able except as noted in history and below Cardiovascular Reports: edema Integumentary/Breast Reports: skin swelling Neurological Reports: weakness in extremities [facility] Medical History (Updated 12/17/23 @ 07:50 by Ginger Friedman) Phlebitis and thrombophlebitis of superficial vessels of left lower extremity ?I80.02 - Phlebitis and thrombophlebitis of superficial vessels of left lower extremity (ICD-10) Varicose veins of bilateral lower extremities with pain ?I83.813 - Varicose veins of bilateral lower extremities with pain (ICD-10) Plantar fascial fibromatosis ?M72.2 - Plantar fascial fibromatosis (ICD-10) Contracture, left ankle ?M24.572 - Contracture, left ankle (ICD-10) Vertigo ?R42 - Dizziness and giddiness (ICD-10) Chronic cystitis ?N30.20 - Other chronic cystitis without hematuria (ICD-10) Chronic kidney disease ?N18.9 - Chronic kidney disease, unspecified (ICD-10) Urinary tract infection ?N39.0 - Urinary tract infection, site not specified (ICD-10) COVID-19 (04/16/23) ?U07.1 - COVID-19 (ICD-10) Migraine ?G43.909 - Migraine, unspecified, not intractable, without status migrainosus (ICD-10) S/P extracorporeal shock wave therapy ?Z98.890 - Other specified postprocedural states (ICD-10) Kidney stones ?N20.0 - Calculus of kidney (ICD-10) Seasonal allergies ?J30.2 - Other seasonal allergic rhinitis (ICD-10) GERD (gastroesophageal reflux disease) ?K21.9 - Gastro-esophageal reflux disease without esophagitis (ICD-10) Surgical History (Updated 05/19/23 @ 11:30 by Cathi Rios NP) History of endometrial ablation ?Z98.890 - Other specified postprocedural states (ICD-10) History of spinal surgery ?Z98.890 - Other specified postprocedural states (ICD-10) History of tonsillectomy ?Z90.89 - Acquired absence of other organs (ICD-10) H/O hand surgery ?Z98.890 - Other specified postprocedural states (ICD-10) History of foot surgery ?Z98.890 - Other specified postprocedural states (ICD-10) History of carpal tunnel release ?Z98.890 - Other specified postprocedural states (ICD-10) Family History (Updated 11/12/23 @ 10:49 by Stefan Hood) Other Family history of diabetes mellitus Family history of hypertension Family history of myocardial infarction Pain due to varicose veins of both lower extremities Social History Within the past year, how often did you have a drink containing alcohol: 2-4 times a month Smoking status: Never smoker Non-prescribed substance use: denies use Previous occupational history: [employer]st Highest level of school completed/degree received: high school graduate Meds Home Medications and Allergies Home Medications ?Medication ?Instructions ?Recorded ?Confirmed ?Type cetirizine 10 mg tablet (Zyrtec) 10 mg PO DAILY PRN allergy symptoms 05/19/23 11/12/23 History lansoprazole 30 mg capsule,delayed 30 mg PO DAILY 05/19/23 11/12/23 History release multivitamin (Daily Multi-Vitamin 1 tab PO DAILY 05/19/23 11/12/23 History tablet) ondansetron 4 mg disintegrating 4 mg PO Q8H PRN nausea and 06/04/23 11/12/23 Rx tablet vomiting 5 days #15 tabs tizanidine 2 mg tablet 2 mg PO TID PRN muscle spasticity 06/04/23 11/12/23 Rx 7 days #21 tabs Allergies Allergy/AdvReac Type Severity Reaction Status Date / Time levofloxacin [From Levaquin] Allergy Muscle Pain Verified 06/29/23 14:18 phenobarbital Allergy Unknown Verified 06/29/23 14:18 Sulfa (Sulfonamide Allergy Rash Verified 06/29/23 14:18 Antibiotics) Exam Narrative Exam Narrative: Patient has mild bruising medial mid thigh. Carlos Cristobal MD personally performed the services described in this documentation, as scribed by Nel James RDMS in my presence and it is both accurate and complete. Nel Cristobal RDMS, am scribing for, and in the presence of, Dr. Carlos Conde and in the presence of the patient. Constitutional Documenting provider has reviewed patient's vital signs: yes Common normals: oriented x3 Nutritional appearance: overweight Cardio Peripheral pulses: dorsalis pedis pulses present Extremity Common normals: normal capillary refill General: edema Right lower extremity: lower leg Right lower leg: inspection and palpation Left lower extremity: lower leg Left lower leg: inspection and palpation Neuro Common normals: oriented x3 Results Imaging Venous US: Radiologist's impression: Heat induced thrombus in left AASV 2.5 cm from SFJ and extends to mid thigh. Carlos Cristobal MD personally performed the services described in this documentation, as scribed by Nel James RDMS in my presence and it is both accurate and complete. I, Nel James RDMS, am scribing for, and in the presence of, Dr. Carlos Conde and in the presence of the patient. Assessment and Plan Assessment and Plan (1) Phlebitis and thrombophlebitis of superficial vessels of left lower extr emity: Plan Plan is for patient to return for EVLT of right GSV on 01/05/24. Carlos Cristobal MD personally performed the services described in this documentation, as scribed by Nel James RDMS in my presence and it is both accurate and complete. Levar, Nel James RDMS, am scribing for, and in the presence of, Dr. Carlos Conde and in the presence of the patient.
--- NOTE | 2023-12-23 09:59 | VEIN_ITS ---
Patient Name: KASSANDRA LOPEZ MR#: [id number] : 1965 Exam Date: 12/23/2023 Ordering Doctor: DR CARLOS CONDE M.D. RADIOLOGY REPORT PROCEDURE: VC EXT VENOUS LT LIMITED COMPARISON: None. INDICATIONS: I80.02 - Phlebitis and thrombophlebitis of superficial veins left leg TECHNIQUE: Lower extremity bone scale and Duplex Doppler evaluation of the deep venous system from the inguinal ligament through the calf veins. FINDINGS: REGION: Left lower extremity. THROMBI: Negative for DVT. Heat induced thrombus in left AASV 2.5 cm from SFJ and extends to mid thigh. COMPRESSIBILITY: Non-compressible segments corresponding to thrombus FLOW: Areas of no flow corresponding to thrombus CONCLUSION: Post ablation occlusion of the left anterior accessory saphenous vein with heat induced thrombus 2.5 cm from the saphenofemoral junction Dictated by: Carlos Conde MD on 12/23/2023 at 10:24 Approved by: Carlos Conde MD on 12/23/2023 at 10:25
--- NOTE | 2023-12-23 09:59 | VEIN_ITS ---
Patient Name: KASSANDRA LOPEZ MR#: [id number] : 1965 Exam Date: 12/23/2023 Ordering Doctor: DR CARLOS CONDE M.D. RADIOLOGY REPORT PROCEDURE: FACILITY EST TD [facility]IN [facility] - OFFICE VISIT FOLLOW UP COMPARISON: None. PROGRESS NOTES: The patient reports no significant problems following intravenous laser ablation of the left anterior accessory saphenous vein. The patient has worn a compression stocking. The patient did not require oral analgesics. Physical exam demonstrates 2 areas of bruising the largest measuring 7 x 4 cm along the medial left thigh likely related to tumescent injection. No erythema or warmth to suggest cellulitis or thrombophlebitis. The great saphenous vein cannot be palpated likely related to patient body habitus. No active ulceration. Review of the ultrasound performed the same day demonstrates occlusive thrombus extending throughout the treated left anterior accessory saphenous vein with heat induced thrombus 2.5 cm from the saphenofemoral junction. The patient expressed a desire to proceed with treatment of incompetent right great saphenous vein. VEIN/ Facility EST TD IMPRESSION: 1. Successful ablation of the left anterior accessory saphenous vein 2. Persistent incompetent bilateral great saphenous vein. PLAN: Intravenous laser ablation right great saphenous vein Nurse notes, history and physical were reviewed and confirmed, see attached forms. The nurse was present throughout the physical exam and consultation Dictated by: Carlos Conde MD on 12/23/2023 at 10:40 Approved by: Carlos Conde MD on 12/23/2023 at 10:41
--- OUTSIDE RECORDS SUMMARY | 2023-12-23 10:19 | XMS_ITS | CCD ---
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 [facility] (15 sources) PHENobarbital; Translations: [phenobarbital] Drug Allergy 07-07-19 15 Unknown [facility] (5 sources) Sulfonamides (Antibiotic); Translations: [sulfa drugs] Drug allergy [facility] (1 source) benzoin resin Drug Allergy 08-21-19 16 [facility] (1 source) levoFLOXacin Drug Allergy 08-21-19 16 [facility] (1 source) Sulfonamides (Antibiotic) Drug allergy (disorder) 08-21-19 16 [facility] (10 sources) Sulfamethoxazole / Trimethoprim; Translations: [SULFAMETHOXAZOLE-TR IMETHOPRIM] Drug Allergy 07-07-19 15 Rash [facility] (1 source) Sulfonamides (Antibiotic); Translations: [SULFA (SULFONAMIDE ANTIBIOTICS)] Propensity to adverse reactions to drug (disorder) 12-20-19 15 [facility] Medications Current Medications Medication Drug Class(es) Dates Sig (Normalized) Sig (Original) Airborne Gummies (4 sources) Start: 04-16-2020 Airborne Gummies Chewed, Daily Start Date: 04/16/20 Status: Ordered amitriptyline hydrochloride 10 mg oral tablet (8 sources) Tricyclic Antidepressant take 1 tablet by mouth once daily at bedtime amitriptyline (ELAVIL) 10 mg tablet Take 10 mg by mouth daily at bedtime. Active cephalexin 500 mg oral capsule (2 sources) Cephalosporin Antibacterial Start: 07-02-2021 End: 07-09-2021 take 1 capsule by mouth every twelve hours Keflex 500 mg Cap 500 mg = 1 cap(s), Oral, q12hr, X 7 day(s), # 14 cap(s), Refills(s) 0, Pharmacy: [facility]/pharmacy #[id number], 161, cm, 05/13/21 9:04:00 EST, Height/Length Dosing, 91.5, kg, 05/13/21 9:04:00 EST, Weight Dosing Start Date: 07/02/21 Stop Date: 07/09/21 Status: Ordered fluconazole 150 mg oral tablet (2 sources) Azole Antifungal Start: 07-02-2021 End: 07-09-2021 Diflucan 150 mg Tab See Instructions, 1 tab po q72 hrs x 3 doses, then dc, # 3 tab(s), Refills(s) 0, Pharmacy: [facility]/pharmacy #[id number], 161, cm, 05/13/21 9:04:00 EST, Height/Length Dosing, 91.5, kg, 05/13/21 9:04:00 EST, Weight Dosing Start Date: 07/02/21 Stop Date: 07/09/21 Status: Ordered Prevacid (4 sources) Proton Pump Inhibitor Start: 09-19-2019 Prevacid Oral, Daily, Refills(s) 0 Start Date: 09/19/19 Status: Ordered metoclopramide 5 mg oral tablet (8 sources) Dopamine-2 Receptor Antagonist take 1 tablet by mouth once daily at bedtime metoclopramide HCl (REGLAN) 5 mg tablet Take 5 mg by mouth daily at bedtime. Active Multivitamin, Therapeutic w/ Minerals (4 sources) Start: 01-11-2016 take 1 tablet by mouth once daily Multivitamin, Therapeutic w/ Minerals 1 tab(s), Oral, Daily, Refill(s) 0, Prophylaxis Start Date: 01/11/16 Status: Ordered [place]-3 Fatty Acids-Vitamin E (FISH OIL) 1,000 mg cap (8 sources) [place]-3 Fatty Acids-Vitamin E (FISH OIL) 1,000 mg cap Take 1 capsule by mouth. Active [place]-3 Fatty Ac ids-Vitamin E (FISH OIL) 1,000 mg cap Take 1 capsule by mouth. 0 Active ONE DAILY MULTIVITAMIN ORAL (8 sources) ONE DAILY MULTIV ITAMIN ORAL Take by mouth. Active ONE DAILY MULTIV ITAMIN ORAL Take by mouth. 0 Active Problems [...] COLON] Onset: 3 Episodic Residual codes; unclassified (4 sources) Pain; Translations: [Pain, unspecified] Onset: 3 [...] Test Name Value Interpretation Reference Range Facility [facility] AL[facility]OPE[facility] ([id number]) 1965 F Date Time Provider Department 09/29/23 [...] DAILY MULTIVITAMIN ORAL Take by mouth. - [place]-3 Fatty Acids-Vitamin E (FISH OIL) 1,000 mg cap Take 1 capsule by mouth. - amitriptyline (ELAVIL) 10 mg tablet Take 10 mg by mouth daily at bedtime. - metoclopramide HCl (REGLAN) 5 mg tablet Take 5 mg by mouth daily at bedtime. Problem List As Of Date: 09/29/2023 (None) Encounter Status:Closed by NEEMA CAMPOS on 09/29/23 Normal [facility] EMG(NEURO/NI)on 09-29-2023 Results can be seen in attached scanned documents. If you are a patient reviewing this test result, call the doctor who ordered the test with any questions. [facility] ALY[facility] LOPE[facility] ([id number]) 1965 F Date Time Provider Department 08/28/23 [...] DAILY MULTIVITAMIN ORAL Take by mouth. - [place]-3 Fatty Acids-Vitamin E (FISH OIL) 1,000 mg cap Take 1 capsule by mouth. - amitriptyline (ELAVIL) 10 mg tablet Take 10 mg by mouth daily at bedtime. - metoclopramide HCl (REGLAN) 5 mg tablet Take 5 mg by mouth daily at bedtime. Problem List As Of Date: 08/28/2023 (None) Encounter Status:Closed by MANDY PRECIADO on 08/28/23 [facility] Izzy 08-20-2023 [facility] ALY[facility] LOPEZ ([id number]) 1965 F Date Time Provider Department 08/20/23 LUCIO MIXON During your visit today, we recorded the following information about you: Karly Leija 08/20/2023 9:18 AM Signed Name of Caller: Nayeli at [employer] Relationship to patient: Last visit in this department: 08/13/2023 Reason for Call: Other : Nayeli calling from Occupational Health to get office notes and any test results if applicable for the 08/13/23 visit. Please fax to [phone] Callback number: [phone] Fax Number (if necessary): [phone] Additional info if needed (Prior Auth #, Claim #, etc?): N/A Valentina Bella PA-C 08/24/2023 9:[address] Mixon's note still not completed, I did call Nayeli at [employer]. We did discuss that the patient needs [...] DAILY MULTIVITAMIN ORAL Take by mouth. - [place]-3 Fatty Acids-Vitamin E (FISH OIL) 1,000 mg cap Take 1 capsule by mouth. - amitriptyline (ELAVIL) 10 mg tablet Take 10 mg by mouth daily at bedtime. - metoclopramide HCl (REGLAN) 5 mg tablet Take 5 mg by mouth daily at bedtime. Problem List As Of Date: 08/20/2023 (None) Encounter Status:Closed by VALENTINA LINDSEY on 08/24/23 Normal [facility] CNOVon 08-13-2023 CNOV Office Visit (OTMBHT) ALYSSA LOPEZ ([id number]) 1965 F Date Time Provider Department 08/13/23 9:20 AM LUCIO MIXON During your visit today, we recorded the following information about you: Lucio Mixon MD 09/08/2023 4:53 PM Signed Lucio Mixon MD Department of Orthopaedics Orthopaedic Surgery [facility] [address] [facility] [address] Dept: [phone] Dept August 13, 2023 CHIEF COMPLAINT: New [...] her origional EMG test. SHe'll have her [facility] get an c9 for a new [...] ONE DAILY MULTIVITAMIN ORAL Take by mouth. [place]-3 Fatty Acids-Vitamin E (FISH OIL) 1,000 mg [...] to requesting physician via US mail. Laine Granger, SLICE CUTTING MACHINE OPERATOR [address] [facility] [address] Lucio Mixon MD Referring Provider: LAINE GRANGER [[id number]] Allergies As of Date: 08/13/2023 Noted Allergy Reaction BACTRIM (SULFAMETHOXAZOLE-TR IMETH*07/06/2014 2 - Rash PHENOBARBITAL 07/06/2014 16 - Unknown Date Reviewed: 08/13/2023 Reviewed by: Nargis Stiles MA - Fully Assessed Reason for Visit: New [021077] Pain [78] Primary Visit Diagnosis:Numbness and tingling in left hand [R20.0, R20.2] Prescriptions as of 09/08/2023 - ONE DAILY MULTIVITAMIN ORAL Take by mouth. - [place]-3 Fatty Acids-Vitamin E (FISH OIL) 1,000 mg cap Take 1 capsule by mouth. - amitriptyline (ELAVIL) 10 mg tablet Take 10 mg by mouth da (more content not included)... Normal [facility] XR WRIST 3V PA/LAT/OBL LTon 08-13-2023 XR [...] IMPRESSION: REMOTE POSTSURGICAL AND DEGENERATIVE CHANGES DESCRIBED Miter Sawyer: KASSI Transcribe Date/Time: Aug 13 2023 10:48A Dictated by : SARITA WILEY MD This examination was interpreted and the report reviewed and electronically signed by: SARITA WILEY MD on Aug 13 2023 10:50AM EST [id number] Normal [facility] XR Wrist - left PA and Later al and Obliqueon 08-13-2023 IMPRESSION: REMOTE POSTSURGICAL AND DEGENERATIVE CHANGES DESCRIBED Miter Sawyer: KASSI Transcribe Date/Time: Aug 13 2023 10:48A Dictated by : SARITA WILEY MD This examination was interpreted and the report reviewed and electronically signed by: SARITA WILEY MD on Aug 13 2023 10:50AM EST DIVISION OF RADIOLOGY * * *Final Report* * * DATE [...] joint. No obvious focal soft tissue swelling. DIVISION OF RADIOLOGY Provider, [facility] - 08/13/2023 * * *Final Report* * * DATE [...] joint. No obvious focal soft tissue swelling. IMPRESSION IMPRESSION: REMOTE POSTSURGICAL AND DEGENERATIVE CHANGES DESCRIBED Miter Sawyer: KASSI Transcribe Date/Time: Aug 13 2023 10:48A Dictated by : SARITA WILEY MD This examination was interpreted and the report reviewed and electronically signed by: SARITA WILEY MD on Aug 13 2023 10:50AM EST [facility] Study observation (narrative) [facility] XR Wrist - left PA and Later al and ObliqueOrdered By: Ccf Provider on 08-13-2023 [facility] ic Provider Letteron 04-23-2023 Provider Letter April 23, 2023 ALYSSA LOPEZ [address] [place] [address] : 1965 Dear Alyssa , We have [...] [facility] [address], [place] [address] [facility] Follow-Upon 04-22-2023 Follow-Up [id number] Alyssa Lopez 1965 Date Provider Department Center 04/22/2023 MAX MUSTAFA MP [facility] Family History Family history unknown: Yes Level of Service:94060 [place] OFFICE/OUTPT VISIT,PROCEDURE ONLY Reason for Visit and Comments: Follow-up [041187] - Constant tingling - thumb goes numb when driving or holding something for a bit and the numbness also goes into the middle finger as well. Pain [136] - Constant tingling - thumb goes numb when driving or holding something for a bit and the numbness also goes into the middle finger as well. Normal [facility] Follow-Upon 02-10-2023 Follow-Up [id number] Alyssa Lopez 1965 Date Provider Department Center 02/10/2023 [facility] Family History Family history unknown: Yes Level of Service:36859 [place] OFFICE/OUTPATIENT ESTABLISHED LOW MDM 20-29 MIN Reason for Visit and Comments: Follow-up [672935] [facility] Follow-Upon 11-26-2022 Follow-Up [id number] Alyssa Lopez 1965 F Date Provider Department Center 11/26/2022 MAX MUSTAFA MP Family History Family history unknown: Yes Level of Service:57514 [place] OFFICE/OUTPATIENT ESTABLISHED LOW MDM 20-29 MIN Reason for Visit and Comments: Pain [136] Follow-up [013840] [facility] Office Visiton 10-15-2022 Follow-up visit [id number] Whitney 1965 F Date Provider Department Center 10/15/2022 MAX MUSTAFA MP Family History Family history unknown: Yes Level of Service:66657 [place] POSTOP FOLLOW UP VISIT RELATED TO ORIGINAL PX (GC) Reason for Visit and Comments: Post-op [483] Follow-up [575310] [facility] 36on 10-02-2022 36 I spoke to the patient to see how she is doing after her recent surgery with Dr Kowalski. Ms Lopez stated she is doing well and that her pain is manageable with medications. She has a follow up with Dr Kowalski on October 15 at 120. She had no other questions or concerns. [facility] HPon 10-01-2022 HP History Of Present Illness [...] Active Problems: Hyperlipidemia L C TR Normal [facility] OPNOTEon 10-01-2022 OPNOTE Operative Note Patient: Guillermina Lopez Date of Surgery: 10/01/2022 : 1965 Pre-operative Diagnosis: Carpal Tunnel Syndrome left Hand Post-operative Diagnosis: same Operation: Carpal Tunnel Release, left (17594) Surgeon: Max Kowalski MD Neurophysiology Tech: Drew Chacon MD Staff: Drapery Cutter: Mayte Chery RN Scrub Person: Cayetano Ace [...] Disposition: PACU Condition: stable Max Kowalski MD [facility] POCT GLUCOSE METER UNSOLICIT ED RESULTSon 10-01-2022 Glucose [Mass/Vol] 91 mg/dL Normal 70-105 [facility] Comment on above: Order Comment: Waive d Testing in the ED is performed under the ED CLIA certificate #[id number]. Result Comment: beverly low Performed By: #### L [id number] ####[facility] (BEAKER)[address] [place] [address] [id number] 09-24-2022 [id number] NPO AFTER MIDNIGHT. MUST HAVE A NEUROLOGY PHYSICIAN ASSISTANT TO TAKE YOU HOME AND SOMEONE TO STAY FOR 24 HOURS AFTER SURGERY. NO JEWELRY OR VALUABLES. HOLD THE MEDS WE SPOKE ABOUT: VITAMINS STARTING 09-27. TAKE THE MEDS WE SPOKE ABOUT WITH A SIP OF WATER DOS: PREVACID, ADIPEX. BRING INSURANCE CARD AND PHOTO ID AND MED LIST. Normal [facility] Lab Reportson 08-21-2022 Lab Reports [id number] #1.00CD:127 Normal [facility] CITRATE URINE 24HRon 023 Citric Acid, U, 24hr 363 mg/24 hr Normal 320-1240 Th [facility] Comment on above: Result Comment: This test was developed and its performance characteristics determined by [facility]. It has not been cleared or approved by the Food and Drug Administration. Performed By: #### C ITRATU #### [facility] [address] [place] [address] Dr. Prabhu Lopez Citric Acid, Urine 338 mg/L Normal Undefined [facility] Comment on above: Performed By: #### C ITRATU #### [facility] [address] [address] [address] Prabhu Lopez OXALATE 24HR URINEon 023 Oxalates, Urine 15 mg/L Normal Undefined [facility] Comment on above: Performed By: #### O X24HR #### [facility] [address] [address] [address] Prabhu Lopez Oxalates, Urine 24hr 16 mg/24 hr Normal 4-31 [facility] Comment on above: Performed By: #### O X24HR #### [facility] [address] [address] [address] Prabhu Lopez Lab Reportson 08-17-2022 Lab Reports [id number] #1.00CD:127 Normal [facility] Lab Reports [id number] #1.00CD:127 Normal [facility] Lab Reports [id number] #1.00CD:127 Normal [facility] MAGNESIUM 24HR URINEon 08-15 Magnesium 24hr Urine 94.6 mg/24 hr Normal 12.0-293.0 [facility] Comment on above: Performed By: #### U JESI, BMP #### [facility] [address] [address] [address] Prabhu Lopez Magnesium UR 8.8 mg/dL Normal Not Estab. [facility] Comment on above: Performed By: #### U JESI, BMP #### [facility] [address] [place] [address] Dr. Prabhu Lopez PHOSPHORUS 24HR URINEon 08-04 Phosphorus, Urine 48.2 mg/dL Normal Not Estab. [facility] Comment on above: Performed By: #### P HOS 24 #### [facility] [address] [place] [address] Dr. Prabhu Lopez Phosphorus, Urine 24hr 518 mg/24 hr Normal 261-1078 [facility] Comment on above: Performed By: #### P HOS 24 #### [facility] [address] [place] [address] Dr. Prabhu Lopez URIC ACID 24 HR URINEon 08-04 Uric Acid, Urine 29.6 mg/dL Normal Not Estab. [facility] Comment on above: Performed By: #### U JESI, BMP #### [facility] [address] [place] [address] Dr. Prabhu Lopez Uric Acid, Urine 24hr 318.2 mg/24 hr Normal 173.7-902.1 [facility] Comment on above: Performed By: #### U JESI, BMP #### [facility] [address] [place] [address] Dr. Prabhu Lopez CALCIUM 24 HR URINEon 2022 CALC, 24 HR UR 76.3 mg/24 hr Critically low 100.0-300.0 Th [facility] Comment on above: Performed By: #### C ALC24U #### [facility] [address] [place] [address] Dr. Prabhu Lopez UR CALCIUM 7.1 mg/dL Normal 5.1-21.0 [facility] Comment on above: Performed By: #### C ALC24U #### [facility] [address] [place] [address] Dr. Prabhu Lopez UR TOT VOL 1075 ml/24 HR Normal [facility] Comment on above: Performed By: #### C ALC24U #### [facility] [address] [place] [address] Dr. Prabhu Lopez Performed By: #### N A24U, [id number] #### [facility] [address] [place] [address] Dr. Prabhu Lopez CBC AUTO DIFFon 08-14-2022 BASO # 0.1 103/ul Normal 0.0-0.1 [facility] Comment on above: Performed By: #### U JESI, BMP #### [facility] [address] [place] [address] Dr. Prabhu Lopez Basophils/100 WBC (Bld) 1.3 % Normal 0.2-2.0 [facility] Comment on above: Performed By: #### U JESI, BMP #### [facility] [address] [place] [address] Dr. Prabhu Lopez EO # 0.3 103/ul Normal 0.0-0.7 [facility] Comment on above: Performed By: #### U JESI, BMP #### [facility] [address] [place] [address] Dr. Prabhu Lopez Eosinophils/100 WBC (Bld) 5.2 % Normal 0.9-7.0 [facility] Comment on above: Performed By: #### U JESI, BMP #### [facility] [address] [place] [address] Dr. Prabhu Lopez Erythrocyte distribution width (RBC) [Ratio] 12.9 % Normal 11.0-15.0 [facility] Comment on above: Performed By: #### U JESI, BMP #### [facility] [address] [place] [address] Dr. Prabhu Lopez Hematocrit (Bld) [Volume fraction] 42.7 % Normal 36.0-48.0 [facility] Comment on above: Performed By: #### U JESI, BMP #### [facility] [address] [place] [address] Dr. Prabhu Lopez Hemoglobin (Bld) [Mass/Vol] 13.4 g/dL Normal 12.0-16.0 [facility] Comment on above: Performed By: #### U JESI, BMP #### [facility] [address] [place] [address] Dr. Prabhu Lopez IG # 0.02 10e3/ul Normal 0.00-0.03 [facility] Comment on above: Performed By: #### U JESI, BMP #### [facility] [address] [place] [address] Dr. Prabhu Lopez IG % 0.4 % Normal 0.0-0.5 [facility] Comment on above: Performed By: #### U JESI, BMP #### [facility] [address] [place] [address] Dr. Prabhu Lopez LYMPH # 2.0 103/ul Normal 1.2-3.8 [facility] Comment on above: Performed By: #### U JESI, BMP #### [facility] [address] [place] [address] Dr. Prabhu Lopez Lymphocytes/100 WBC (Bld) 41.5 % Normal 20.5-60.0 [facility] Comment on above: Performed By: #### U JESI, BMP #### [facility] [address] [place] [address] Dr. Prabhu Lopez MANUAL DIFF REQ NO Normal [facility] Comment on above: Performed By: #### U JESI, BMP #### [facility] [address] [address] [address] Prabhu Lopez MCH (RBC) [Entitic mass] 28.7 pg Normal 26.7-34.0 [facility] Comment on above: Performed By: #### U JESI, BMP #### [facility] [address] [place] [address] Dr. Prabhu Lopez MCHC (RBC) [Mass/Vol] 31.4 g/dL Normal 29.9-35.2 [facility] Comment on above: Performed By: #### U JESI, BMP #### [facility] [address] [place] [address] Dr. Prabhu Lopez MCV (RBC) [Entitic vol] 91.4 fL Normal 81.0-99.0 [facility] Comment on above: Performed By: #### U JESI, BMP #### [facility] [address] [place] [address] Dr. Prabhu Lopez MONO # 0.4 103/ul Normal 0.3-0.8 [facility] Comment on above: Performed By: #### U JESI, BMP #### [facility] [address] [place] [address] Dr. Prabhu Lopez Monocytes/100 WBC (Bld) 8.3 % Normal 1.7-12.0 [facility] Comment on above: Performed By: #### U JESI, BMP #### [facility] [address] [place] [address] Dr. Prabhu Lopez NEUT # 2.1 103/ul Normal 1.4-6.5 [facility] Comment on above: Performed By: #### U JESI, BMP #### [facility] [address] [place] [address] Dr. Prabhu Lopez Neutrophils/100 WBC (Bld) 43.3 % Normal 43.0-75.0 [facility] Comment on above: Performed By: #### U JESI, BMP #### [facility] [address] [place] [address] Dr. Prabhu Lopez Platelet mean volume (Bld) [Entitic vol] 11.7 fL Normal 9.5-13.5 [facility] Comment on above: Performed By: #### U JESI, BMP #### [facility] [address] [place] [address] Dr. Prabhu Lopez PLT 237 103/ul Normal 150-450 [facility] Comment on above: Performed By: #### U JESI, BMP #### [facility] [address] [place] [address] Dr. Prabhu Lopez RBC 4.67 106/ul Normal 4.20-5.40 [facility] Comment on above: Performed By: #### U JESI, BMP #### [facility] [address] [place] [address] Dr. Prabhu Lopez WBC 4.8 103/ul Normal 4.0-11.0 [facility] Comment on above: Performed By: #### U JESI, BMP #### [facility] [address] [place] [address] Dr. Prabhu Lopez CREA 24 HR URINEon 3 CREA, 24 HR UR 875.48 mg/24 hr Normal 800.00-1,8 00. 00 [facility] Comment on above: Performed By: #### N A24U, [id number] #### [facility] [address] [place] [address] Dr. Prabhu Lopez URINE CREAT 81.44 mg/dL Normal 20.00-300.00 [facility] Comment on above: Performed By: #### N A24U, [id number] #### [facility] [address] [place] [address] Dr. Prabhu Lopez FREE THYROXINE INDEX T7on FTI 2.34 Normal 1.30-4.50 [facility] Comment on above: Performed By: #### U JESI, BMP #### [facility] [address] [place] [address] Dr. Prabhu Lopez T3U 33.0 % Normal 30.0-39.0 [facility] Comment on above: Performed By: #### U JESI, BMP #### [facility] [address] [place], [place] [id number] Dr. Prabhu Lopez T4 [Mass/Vol] 7.10 ug/dL Normal 4.80-13.90 [facility] Comment on above: Performed By: #### U JESI, BMP #### [facility] [address] [place] [address] Dr. Prabhu Lopez GLYCOHEMOGLOBIN A1Con 2022 ADA RECOMMENDATION SEE BELOW Normal [facility] Comment on above: Result Comment: ADA RECOMMENDED LIMIT 4.0 - 6.0 ADA THERAPEUTIC TARGET < 7.0 ACTION SUGGESTED > 7.0 Performed By: #### U JESI, BMP #### [facility] [address] [place] [address] Dr. Prabhu Lopez Glucose [Mass/Vol] 123 mg/dL Normal [facility] Comment on above: Performed By: #### U JESI, BMP #### [facility] [address] [place] [address] Dr. Prabhu Lopez HbA1c (Bld) [Mass fraction] 5.9 % Normal 4.5-6.2 [facility] Comment on above: Performed By: #### U JESI, BMP #### [facility] [address] [place] [address] Dr. Prabhu Lopez LIPID PROFILEon 08-14-2022 CHOL-HDL RATIO NORM SEE BELOW Normal [facility] Comment on above: Result Comment: 3.3 - 4.4 LOW RISK 4.4 - 7.1 AVERAGE RISK 7.1 - 11.0 MODERATE RISK >11.0 HIGH RISK Performed By: #### U JESI, BMP #### [facility] [address] [place] [address] Dr. Prabhu Lopez Cholesterol [Mass/Vol] 255 mg/dL Critically high <=200 [facility] Comment on above: Performed By: #### U JESI, BMP #### [facility] [address] [place] [address] Dr. Prabhu Lopez Cholesterol in HDL [Mass/Vol] 80 mg/dL Critically high 40-60 [facility] Comment on above: Performed By: #### U JESI, BMP #### [facility] [address] [place] [address] Dr. Prabhu Lopez Cholesterol in LDL [Mass/Vol] 156.6 mg/dL Normal [facility] Comment on above: Performed By: #### U JESI, BMP #### [facility] [address] [address] [address] Prabhu Lopez Cholesterol.total/Ch olesterol in HDL [Mass ratio] 3.2 {ratio} Normal [facility] Comment on above: Performed By: #### U JESI, BMP #### [facility] [address] [address] [address] Prabhu Lopez HDL NORMAL > or = 60 mg/dl - LOW CARDIOVASCULAR RISK <40 mg/dl - HIGH CARDIOVASCULAR RISK Normal [facility] Comment on above: Performed By: #### U JESI, BMP #### [facility] [address] [address] [address] Prabhu Lopez LDL CALC NORMAL SEE BELOW Normal [facility] Comment on above: Result Comment: <100 mg/dl OPTIMAL 100 - 129 mg/dl NEAR OR ABOVE OPTIMAL 130 - 159 mg/dl BORDERLINE HIGH 160 - 189 mg/dl HIGH >190 mg/dl VERY HIGH Performed By: #### U JESI, BMP #### [facility] [address] [address] [address] Prabhu Lopez Triglyceride [Mass/Vol] 92 mg/dL Normal <=150 [facility] Comment on above: Performed By: #### U JESI, BMP #### [facility] [address] [address] [address] Prabhu Lopez VLDL CALC 18.4 mg/dL Normal [facility] Comment on above: Performed By: #### U JESI, BMP #### [facility] [address] [address] [address] Prabhu Lopez PROF 14(COMP METB)on 023 Albumin [Mass/Vol] 3.9 g/dL Normal 3.4-5.0 [facility] Comment on above: Performed By: #### U JESI, BMP #### [facility] [address] [address] [address] Prabhu Lopez Albumin/Globulin [Mass ratio] 0.8 {ratio} Normal [facility] Comment on above: Performed By: #### U JESI, BMP #### [facility] [address] [address] [address] Prabhu Lopez ALP [Catalytic activity/Vol] 74 U/L Normal 46-116 [facility] Comment on above: Performed By: #### U JESI, BMP #### [facility] [address] [address] [address] Prabhu Lopez ALT [Catalytic activity/Vol] 29 U/L Normal 14-59 [facility] Comment on above: Performed By: #### U JESI, BMP #### [facility] [address] [address] [address] Prabhu Lopez Anion gap [Moles/Vol] 10.9 mmol/L Normal [facility] Comment on above: Performed By: #### U JESI, BMP #### [facility] [address] [address] [address] Prabhu Lopez AST [Catalytic activity/Vol] 22 U/L Normal 15-37 [facility] Comment on above: Performed By: #### U JESI, BMP #### [facility] [address] [address] [address] Prabhu Lopez Bilirubin [Mass/Vol] 0.7 mg/dL Normal 0.2-1.0 [facility] Comment on above: Performed By: #### U JESI, BMP #### [facility] [address] [address] [address] Prabhu Lopez Calcium [Mass/Vol] 8.9 mg/dL Normal 8.5-10.1 [facility] Comment on above: Performed By: #### U JESI, BMP #### [facility] [address] [address] [address] Prabhu Lopez Chloride [Moles/Vol] 106 mmol/L Normal 98-107 [facility] Comment on above: Performed By: #### U JESI, BMP #### [facility] [address] [address] [address] Prabhu Lopez CO2 [Moles/Vol] 30.1 mmol/L Normal 21.0-32.0 [facility] Comment on above: Performed By: #### U JESI, BMP #### [facility] [address] [address] [address] Prabhu Lopez Creatinine [Mass/Vol] 0.94 mg/dL Normal 0.55-1.02 [facility] Comment on above: Performed By: #### U JESI, BMP #### [facility] [address] [address] [address] Prabhu Lopez EGFR-AF BULGARIAN >60 Normal >=60 [facility] Comment on above: Performed By: #### U JESI, BMP #### [facility] [address] [address] [address] Prabhu Lopez EGFR-NON AF BULGARIAN >60 Normal >=60 [facility] Comment on above: Performed By: #### U JESI, BMP #### [facility] [address] [address] [address] Prabhu Lopez Globulin (S) [Mass/Vol] 4.8 g/dL Normal [facility] Comment on above: Performed By: #### U JESI, BMP #### [facility] [address] [address] [address] Prabhu Lopez Glucose [Mass/Vol] 96 mg/dL Normal 74-106 [facility] Comment on above: Performed By: #### U JESI, BMP #### [facility] [address] [address] [address] Prabhu Lopez Potassium [Moles/Vol] 4.0 mmol/L Normal 3.5-5.1 [facility] Comment on above: Performed By: #### U JESI, BMP #### [facility] [address] [address] [address] Prabhu Lopez Protein [Mass/Vol] 8.7 g/dL Critically high 6.4-8.2 [facility] Comment on above: Performed By: #### U JESI, BMP #### [facility] [address] [address] [address] Prabhu Lopez Sodium [Moles/Vol] 143 mmol/L Normal 136-145 [facility] Comment on above: Performed By: #### U JESI, BMP #### [facility] [address] [address] [address] Prabhu Lopez Urea nitrogen [Mass/Vol] 13.0 mg/dL Normal 7.0-18.0 [facility] Comment on above: Performed By: #### U JESI, BMP #### [facility] [address] [address] [address] Prabhu Lopez Urea nitrogen/Creatinine [Mass ratio] 13.8 mg/mg Normal [facility] Comment on above: Performed By: #### U JESI, BMP #### [facility] [address] [place] [address] Dr. Prabhu Lopez PTH INTACTon 08-14-2022 PTH, Intact 17 pg/mL Normal 15-65 [facility] Comment on above: Performed By: #### U JESI, BMP #### [facility] [address] [place] [address] Dr. Prabhu Lopez SODIUM 24 HR URINEon 023 NA, 24 HR UR 111 mmol/24 hr Normal 40-220 [facility] Comment on above: Performed By: #### N A24U, [id number] #### [facility] [address] [address] [address] Prabhu Lopez Sodium (U) [Moles/Vol] 103 mmol/L Critically high 30-90 [facility] Comment on above: Performed By: #### N A24U, [id number] #### [facility] [address] [place] [address] Dr. Prabhu Lopez TSHon 08-14-2022 TSH 2.531 uIU/mL Normal 0.358-3.740 [facility] Comment on above: Performed By: #### U JESI, BMP #### [facility] [address] [place] [address] Dr. Prabhu Lopez PROF CHEM 8 (BAS METB)on Anion gap [Moles/Vol] 8.9 mmol/L Normal [facility] Comment on above: Performed By: #### U JESI, BMP #### [facility] [address] [address] [address] Prabhu Lopez Calcium [Mass/Vol] 9.3 mg/dL Normal 8.5-10.1 [facility] Comment on above: Performed By: #### U JESI, BMP #### [facility] [address] [address] [address] Prabhu Lopez Chloride [Moles/Vol] 108 mmol/L Critically high 98-107 [facility] Comment on above: Performed By: #### U JESI, BMP #### [facility] [address] [address] [address] Prabhu Lopez CO2 [Moles/Vol] 28.5 mmol/L Normal 21.0-32.0 [facility] Comment on above: Performed By: #### U JESI, BMP #### [facility] [address] [address] [address] Prabhu Lopez Creatinine [Mass/Vol] 1.08 mg/dL Critically high 0.55-1.02 [facility] Comment on above: Performed By: #### U JESI, BMP #### [facility] [address] [address] [address] Prabhu Lopez EGFR-AF BULGARIAN >60 Normal >=60 [facility] Comment on above: Performed By: #### U JESI, BMP #### [facility] [address] [address] [address] Prabhu Lopez EGFR-NON AF BULGARIAN 52 mL/min/1.73m2 Critically low >=60 [facility] Comment on above: Performed By: #### U JESI, BMP #### [facility] [address] [address] [address] Prabhu Lopez Glucose [Mass/Vol] 94 mg/dL Normal 74-106 [facility] Comment on above: Performed By: #### U JESI, BMP #### [facility] [address] [address] [address] Prabhu Lopez Potassium [Moles/Vol] 3.4 mmol/L Critically low 3.5-5.1 [facility] Comment on above: Performed By: #### U JESI, BMP #### [facility] [address] [place], [place] [address] Dr. Prabhu Lopez Sodium [Moles/Vol] 142 mmol/L Normal 136-145 [facility] Comment on above: Performed By: #### U JESI, BMP #### [facility] [address] [place], [place] [address] Dr. Prabhu Lopez Urea nitrogen [Mass/Vol] 17.0 mg/dL Normal 7.0-18.0 [facility] Comment on above: Performed By: #### U JESI, BMP #### [facility] [address] [place], [place] [address] Dr. Prabhu Lopez Urea nitrogen/Creatinine [Mass ratio] 15.7 mg/mg Normal [facility] Comment on above: Performed By: #### U JESI, BMP #### [facility] [address] [address] [address] Prabhu Lopez URIC ACID SERUMon 08-12-2022 Urate [Mass/Vol] 4.8 mg/dL Normal 2.6-6.0 [facility] Comment on above: Performed By: #### U JESI, BMP #### [facility] [address] [address] [address] Prabhu Lopez 36on 08-04-2022 36 Surgery was approved. I called pt to schedule. Pt did not answer LMOV to return call. Normal [facility] Prep for Procedureon 023 Prep for Procedure [id number] Guillermina Lopez 1965 F Date Provider Department Center 08/04/2022 PATRICIA MAK MP [facility] No family history on file Normal [facility] XR KUB 1 VIEWon 05-23-2022 XR [...] WIL KAYE Date: 2022-05-23 09:40 Normal [facility] Covid-19 PCR (CVDTB)on 11-04 SARS-CoV-2 (COVID-19) RNA TANGELA+probe Ql (Unsp spec) Not detected Normal NOT DETECTED [facility] Comment on above: Result Comment: When [...] for this test is supported by the Plant [employer] Scientist of Health and Human Service's declaration that [...] longer be used). Performed By: #### C [facility] #### [facility] [address] [place] [address] Dr. Prabhu Lopez Covid-19 PCR (CVDTB)on SARS-CoV-2 (COVID-19) RNA TANGELA+probe Ql (Unsp spec) Not detected Normal NOT DETECTED [facility] Comment on above: Result Comment: This test is not yet approved or cleared by the [place] FDA. When there are no FDA-approved or cleared tests available, and other criteria are met, FDA can make tests available under an emergency access mechanism called an Emergency Use Authorization (EUA). The EUA for this test is supported by the [place] of Health and Human Service's (HHS's) declaration [...] SARS-CoV-2. Performed By: #### C VDTB #### [facility] [address] [address] [address] Prabhu Lopez B-Type Natriuretic Peptideon 02-12-2021 Natriuretic peptide B (Bld) [Mass/Vol] 36.0 pg/mL Normal 5-100 [facility] Comment on above: Result Comment: PERF ORMED BY: [place] [address] PATHOLOGIST FARM MANAGEMENT ADVISER NICANOR BALTAZAR M.D. Performed By: #### C BC, PTT, CKMB, BMP, CK, BNP, PT, HS TROP #### [address] Basic Metabolic Panelon Calcium [Mass/Vol] 8.9 mg/dL Normal 8.2-10.2 [facility] Comment on above: Performed By: #### C BC, PTT, CKMB, BMP, CK, BNP, PT, HS TROP #### [address] Chloride [Moles/Vol] 104 mmol/L Normal 95-114 [facility] Comment on above: Performed By: #### C BC, PTT, CKMB, BMP, CK, BNP, PT, HS TROP #### [address] CO2 [Moles/Vol] 24.0 mmol/L Normal 22.0-30.0 [facility] Comment on above: Performed By: #### C BC, PTT, CKMB, BMP, CK, BNP, PT, HS TROP #### [place] [address] [place] Creatinine [Mass/Vol] 1.06 mg/dL High 0.44-1.03 [facility] Comment on above: Performed By: #### C BC, PTT, CKMB, BMP, CK, BNP, PT, HS TROP #### [facility] [address] Creatinine Clr Calc Pharmacy 64.12 [facility] Comment on above: Result Comment: PERF ORMED BY: [place] [address] PATHOLOGIST FARM MANAGEMENT ADVISER NICANOR BALTAZAR M.D. Performed By: #### C BC, PTT, CKMB, BMP, CK, BNP, PT, HS TROP #### [address] Estimated GFR ( Najma > 60 [facility] Comment on above: Result Comment: GFR estimated reference range: According to KDOQI guidelines, <60 ml/min/1.73m2 is sufficient to diagnose a patient with chronic kidney disease. Performed By: #### C BC, PTT, CKMB, BMP, CK, BNP, PT, HS TROP #### [address] Estimated GFR (Non- Am 54 [facility] Comment on above: Performed By: #### C BC, PTT, CKMB, BMP, CK, BNP, PT, HS TROP #### [address] Glucose [Mass/Vol] 106 mg/dL High 70-100 [facility] Comment on above: Result Comment: [place] Glucose Reference Range is dependent on time and content of last meal. Glucose of more than 200 mg/dL in a nonstressed, ambulatory subject supports the diagnosis of Diabetes Mellitus. ADA recommended reference range Performed By: #### C BC, PTT, CKMB, BMP, CK, BNP, PT, HS TROP #### [facility] [address] Potassium [Moles/Vol] 3.3 mmol/L Low 3.5-5.1 [facility] Comment on above: Performed By: #### C BC, PTT, CKMB, BMP, CK, BNP, PT, HS TROP #### [address] Sodium [Moles/Vol] 138 mmol/L Normal 136-146 [facility] Comment on above: Performed By: #### C BC, PTT, CKMB, BMP, CK, BNP, PT, HS TROP #### [address] Urea nitrogen [Mass/Vol] 11 mg/dL Normal 9-23 [facility] Comment on above: Performed By: #### C BC, PTT, CKMB, BMP, CK, BNP, PT, HS TROP #### [address] Complete Blood Count Auto Di ffon 02-12-2021 Basophils (Bld) [#/Vol] 0.1 10*3/uL Normal 0.0-0.2 [facility] Comment on above: Result Comment: PERF ORMED BY: [place] [address] PATHOLOGIST FARM MANAGEMENT ADVISER NICANOR BALTAZAR M.D. Performed By: #### C BC, PTT, CKMB, BMP, CK, BNP, PT, HS TROP #### [address] Basophils/100 WBC (Bld) 1.2 % Normal . [facility] Comment on above: Performed By: #### C BC, PTT, CKMB, BMP, CK, BNP, PT, HS TROP #### [address] Eosinophils (Bld) [#/Vol] 0.2 10*3/uL Normal 0.0-0.45 [facility] Comment on above: Performed By: #### C BC, PTT, CKMB, BMP, CK, BNP, PT, HS TROP #### [address] Eosinophils/100 WBC (Bld) 3.2 % Normal . [facility] Comment on above: Performed By: #### C BC, PTT, CKMB, BMP, CK, BNP, PT, HS TROP #### [address] Erythrocyte distribution width (RBC) [Ratio] 13.5 % Normal 11.9-15.3 [facility] Comment on above: Performed By: #### C BC, PTT, CKMB, BMP, CK, BNP, PT, HS TROP #### [address] Hematocrit (Bld) [Volume fraction] 36.8 % Normal 34.0-46.4 [facility] Comment on above: Performed By: #### C BC, PTT, CKMB, BMP, CK, BNP, PT, HS TROP #### [address] Hemoglobin (Bld) [Mass/Vol] 12.2 g/dL Normal 11.8-15.4 [facility] Comment on above: Performed By: #### C BC, PTT, CKMB, BMP, CK, BNP, PT, HS TROP #### [address] Lymphocytes (Bld) [#/Vol] 2.3 10*3/uL Normal 1.00-4.8 [facility] Comment on above: Performed By: #### C BC, PTT, CKMB, BMP, CK, BNP, PT, HS TROP #### [address] Lymphocytes/100 WBC (Bld) 37.1 % Normal . [facility] Comment on above: Performed By: #### C BC, PTT, CKMB, BMP, CK, BNP, PT, HS TROP #### [address] MCH (RBC) [Entitic mass] 29.5 pg Normal 24.7-34.3 [facility] Comment on above: Performed By: #### C BC, PTT, CKMB, BMP, CK, BNP, PT, HS TROP #### [address] MCV (RBC) [Entitic vol] 89.0 fL Normal 80-100 [facility] Comment on above: Performed By: #### C BC, PTT, CKMB, BMP, CK, BNP, PT, HS TROP #### [facility] [address] Mean Corpuscular HGB Conc 33.2 g/dL Normal 32.0-35.0 [facility] Comment on above: Performed By: #### C BC, PTT, CKMB, BMP, CK, BNP, PT, HS TROP #### [facility] [address] Monocytes (Bld) [#/Vol] 0.5 10*3/uL Normal 0.0-0.8 [facility] Comment on above: Performed By: #### C BC, PTT, CKMB, BMP, CK, BNP, PT, HS TROP #### [facility] [address] Monocytes/100 WBC (Bld) 8.7 % Normal . [facility] Comment on above: Performed By: #### C BC, PTT, CKMB, BMP, CK, BNP, PT, HS TROP #### [facility] [address] Neutrophils (Bld) [#/Vol] 3.1 10*3/uL Normal 1.8-7.7 [facility] Comment on above: Performed By: #### C BC, PTT, CKMB, BMP, CK, BNP, PT, HS TROP #### [facility] [address] [place] [address] [place] Neutrophils/100 WBC (Bld) 49.8 % Normal . [facility] Comment on above: Performed By: #### C BC, PTT, CKMB, BMP, CK, BNP, PT, HS TROP #### [facility] [address] [place] [address] [place] Nucleated RBC/100 WBC (Bld) [Ratio] 0.0 % Normal 0-0.5 [facility] Comment on above: Performed By: #### C BC, PTT, CKMB, BMP, CK, BNP, PT, HS TROP #### [facility] [address] Platelet mean volume (Bld) [Entitic vol] 9.7 fL Normal 6.3-10.7 [facility] Comment on above: Performed By: #### C BC, PTT, CKMB, BMP, CK, BNP, PT, HS TROP #### [address] Platelets (Bld) [#/Vol] 219 10*3/uL Normal 150-450 [facility] Comment on above: Performed By: #### C BC, PTT, CKMB, BMP, CK, BNP, PT, HS TROP #### [address] RBC (Bld) [#/Vol] 4.13 10*6/uL Normal 3.60-5.00 [facility] Comment on above: Performed By: #### C BC, PTT, CKMB, BMP, CK, BNP, PT, HS TROP #### [address] WBC (Bld) [#/Vol] 6.3 10*3/uL Normal 4.5-11.0 [facility] Comment on above: Performed By: #### C BC, PTT, CKMB, BMP, CK, BNP, PT, HS TROP #### [address] Creatine Kinaseon 02-12-2021 CK [Catalytic activity/Vol] 178 U/L Normal 22-269 [facility] Comment on above: Performed By: #### C BC, PTT, CKMB, BMP, CK, BNP, PT, HS TROP #### [address] Creatinine Kinase MBon 02-12 CK.MB [Mass/Vol] 2.5 ng/mL Normal 0.6-6.3 [facility] Comment on above: Performed By: #### C BC, PTT, CKMB, BMP, CK, BNP, PT, HS TROP #### [address] CKMB Relative Index 1.4 % Normal 0.00-2.50 [facility] Comment on above: Performed By: #### C BC, PTT, CKMB, BMP, CK, BNP, PT, HS TROP #### [facility] [address] [place] [address] [place] Partial Thromboplastin Timeo n 02-12-2021 aPTT Coag (Bld) [Time] 29.3 s Normal 25.1-36.5 [facility] Comment on above: Result Comment: PERF ORMED BY: [place] [address] PATHOLOGIST FARM MANAGEMENT ADVISER NICANOR BALTAZAR M.D. Performed By: #### C BC, PTT, CKMB, BMP, CK, BNP, PT, HS TROP #### [address] Prothrombin Time INRon 02-12 INR Coag (PPP) [Relative time] 1.0 {INR} Normal [facility] Comment on above: Result Comment: INR [...] BMP, CK, BNP, PT, HS TROP #### [facility] [address] PT Coag (PPP) [Time] 11.5 s Normal 9.0-12.9 [facility] Comment on above: Performed By: #### C BC, PTT, CKMB, BMP, CK, BNP, PT, HS TROP #### [facility] [address] Troponin I High Sensitivityo n 02-12-2021 Troponin I High Sensitivity 5 pg/mL Normal 0-15 [facility] Comment on above: Result Comment: PERF ORMED BY: [place] [address] PATHOLOGIST FARM MANAGEMENT ADVISER NICANOR BALTAZAR M.D. Performed By: #### C BC, PTT, CKMB, BMP, CK, BNP, PT, HS TROP #### [place] [id number] [facility] XR chest 2V*on 02-12-2021 XR chest 2V* [facility] [place] [address] XRay Report Signed Patient: Alyssa Lopez MR#: [id number] : 1965 Acct:[id number] Age/Sex: 55 / F ADM Date: 02/11/21 Loc: ER Room: Type: [facility] ER Attending Dr: Ordering Provider: Stefan Carolina [...] Reid Graves M.D.02/12/2021 9:18 AM Dictation Location: [place] [address] Transcribed By: [facility] 02/12/21917 Dictated By: Reid Graves DO 02/12/21914 Signed By: 02/12/21917 Normal [facility] ECG 12 lead ECGon 02-11-2021 ECG 12 lead ECG [facility] [place] [address] Electrocardiograph Report Signed Patient: Alyssa Lopez MR#: [id number] : 1965 Acct:[id number] Age/Sex: 55 / F ADM Date: 02/11/21 Loc: ER Room: Type: [facility] ER Attending : Ordering Provider: Stefan Carolina DO Date of [...] ECGs available Confirmed by Stefan Carolina DO ([id number]) on 02/11/2021 11:41:46 PM Referred By: Electronically Signed By:Stefan Carolina DO Transcribed By: MUS Signed By Stefan Carolina DO 02/11 2341 [facility] Vital Signs Date Time Vital Sign Value Performing Clinician Homa harris 05-26-2022 08:49-0500 Blood Pressure Location Hoda SALMON [facility] 05-26-2022 08:49-0500 Diastolic blood pressure 74 mm[Hg] Hoda SALMON [facility] 05-26-2022 08:49-0500 Heart rate 70 /min Hoda SALMON [facility] 05-26-2022 08:49-0500 Respiratory rate 16 /min Hoda SALMON [facility] 05-26-2022 08:49-0500 Systolic blood pressure 128 mm[Hg] Hoda SALMON [facility] Encounters Encounter Date Encounter Type Care Provider Facility Start: 09-29-2023 Telephone encounter Ines Coker MD Work Phone: Neurology Comment on above: EMG- FAXED RESULTS Start: 09-29-2023 End: 09-29-2023 ambulatory INES COKER Neurology EMG [facility] Start: 09-29-2023 End: 09-29-2023 Patient encounter procedure Emg 2 Neur [facility] (Max Weight 400) Neurology EMG [facility] Start: 08-28-2023 Telephone encounter Ines Coker MD Work Phone: Neurology Comment on above: EMG Instructions Start: 08-25-2023 Orders Only Laine Mrakusum loren SLICE CUTTING MACHINE OPERATOR Work Phone: Neurology Comment on above: Sprain of left wrist , sequela (Primary Dx); Carpal tunnel syndrome of left wrist Start: 08-20-2023 Telephone encounter Lucio prasad MD Work Phone: Orthopaedic Surgery [facility] Start: 08-13-2023 End: 08-13-2023 Patient encounter procedure Lucio Mixon MD Work Phone: Orthopaedic Surgery [facility] Comment on above: Numbness and tinglin g in left hand (Primary Dx) Start: 08-13-2023 End: 08-13-2023 ambulatory LAINE GRANGER Facility:[facility] Start: 08-13-2023 End: 08-13-2023 Subsequent hospital visit by physician Xr [facility] 1 Xray [facility] Comment on above: Pain [R52] Start: 07-31-2023 Orders Only Lucio Mixon MD Work Phone: Referring Physician Comment on above: Pain (Primary Dx) Start: 07-06-2023 End: 07-07-2023 ambulatory Hoda SALMON Facility:[facility] Start: 07-06-2023 End: 07-06-2023 Patient encounter procedure Hoda SALMON [facility] Start: 06-30-2023 ambulatory [facility] Start: 04-22-2023 ambulatory [facility] Start: 02-10-2023 ambulatory [facility] Start: 11-26-2022 ambulatory [facility] Start: 10-15-2022 End: 10-15-2022 ambulatory [facility] Start: 10-01-2022 End: 10-01-2022 [facility] Start: 08-15-2022 Encounter for genera l adult medical examination without abnormal findings DR SHAI LAU . [facility] Start: 08-14-2022 End: 08-15-[address] SHAI LAU . Facility:[facility] Start: 08-14-2022 End: 08-15-2022 Encounter for general adult medical examination without abnormal findings DR SHAI LAU . Facility:[facility] Start: 08-12-2022 End: 08-13-[address] HODA SALMON . Facility:[facility] Start: 05-26-2022 End: 05-26-2022 Patient encounter procedure Hoda SALMON [facility] Start: 05-22-2022 End: 05-23-[address] HODA SALMON . Facility:[facility] Start: 11-15-2021 End: 11-15-[address] SHAI LAU . Facility:[facility] Start: 11-12-2021 End: 11-12-[address] SHAI LAU . Facility:[facility] Start: 07-02-2021 End: 07-02-2021 Lab Drop off EMERITA E NIKI [facility] Start: 07-02-2021 End: 07-02-2021 Patient encounter procedure Toni Carrera Jr. [facility] Procedures Date Procedure Procedure Detail Performing Clinician Start: 09-29-2023 Nerve conduction mary ann dies 5-6 studies Ines Coker MD Work Phone: Start: 08-13-2023 Radex wrist complete minimum 3 views Lucio Mixon MD Work Phone: Start: 02-10-2023 Follow-up visit Follow-up MAX KOWALSKI Start: 03-05-2017 Extracorporeal shock wave lithotripsy of calculus of kidney Toni Carrera Jr. Start: 04-06-2016 Procedure on back Akil malick Carrera Jr. Start: 04-06-2015 Decompression of med barron nerve Toni Carrera Jr. Start: 04-06-1989 Tonsillectomy Toni de la cruz Jr. Plan of Treatment Date Care Activity Detail Author Start: 12-06-2023 Covid-19 Vaccine () Covid-19 Vaccine () [facility] Start: 12-06-2023 Influenza vaccination C [facility] Start: 09-29-2023 End: 09-29-2023 ambulatory 09/29/2023 9:25 AM EDT Procedure Neurology EMG [facility] [address] [place] [address] EMG STANDARD Neurology EMG [facility] Comment on above: EMG STANDARD Start: 08-13-2023 End: 08-13-2023 Patient encounter procedure Xray [facility] Comment on above: sprain of left wrist , alin is coming in for seccond opinion, had carple tunnel surgery on this wrist october 02, 2022 Start: 04-06-2023 Behavioral Health Screening Behavioral Health Screening [facility] Start: 12-05-2022 Covid-19 Vaccine ( season) Covid-19 Vaccine () [facility] Start: 12-05-2022 Covid-19 Vaccine ( season) Covid-19 Vaccine () [facility] Start: 06-09-2015 Shingrix Vaccine (1 of 2) Shingrix Vaccine (1 of 2) [facility] Start: 2010 Diabetes Screening Diabetes Screenin g [facility] Start: 2010 Lipid panel Lipid Screening [facility] Start: 2010 Screening for malign ant neoplasm of colon [facility] Start: 2005 Screening for malign ant neoplasm of breast Mammogram Screening [facility] Start: 06-09-1995 Screening for malign ant neoplasm of cervix HPV Testing [facility] Start: 1986 Screening for malign ant neoplasm of cervix [facility] Start: 1984 Hepatitis B Vaccine (1 of 3 - 19+ 3-dose series) Hepatitis B Vaccine (1 of 3 - 19+ 3-dose series) [facility] Start: 1984 Urine microalbumin profile DTaP,Tdap,Td Vaccine (1 - Tdap) [facility] Start: 06-09-1983 Anxiety Screening Anxiety Screening [facility] Start: 06-09-1983 Depression Screening Depression Scre ening [facility] Start: 06-09-1983 Hepatitis C screening Hepatitis C Sc reening [facility] Start: 06-09-1983 HIV screening HIV Screening [facility] End: 08-24-2024 EMG(NEURO/NI) EMG(NEURO/NI) EMG Routine Sprain of left wrist, sequela Carpal tunnel syndrome of left wrist 1 Occurrences starting 08/25/2023 until 08/24/2024 [facility] Work Phone: Comment on above: 1 Occurrences starti ng 08/25/2023 until 08/24/2024 End: 08-29-2024 XR Wrist - left 4 Views XR WRIST INJURY 4V PA/LAT/OBL/SCAPH LEFT Radiology Routine Pain 1 Occurrences starting 07/31/2023 until 08/29/2024 [facility] Comment on above: 1 Occurrences starti ng 07/31/2023 until 08/29/2024 End: 08-29-2024 XR Wrist - left PA and Lateral and Oblique XR WRIST GENERAL 3V PA/LAT/OBL LEFT Radiology Routine Pain 1 Occurrences starting 07/31/2023 until 08/29/2024 [facility] Work Phone: Comment on above: 1 Occurrences starti ng 07/31/2023 until 08/29/2024 Immunizations Immunization Date Immunization Notes Care Provider Mihai bradshaw 02-26-2022 influenza virus vaccine, unspecified formulation Lucio Mixon MD Work Phone: [facility] 08-08-2020 SARS-CoV-2 (COVID-19 ) Ad26 vaccine, recombinant Toni Carrera Jr. [facility] 07-18-2020 SARS-CoV-2 (COVID-19 ) Ad26 vaccine, recombinant Toni Carrera Jr. [facility] Payers Date Payer Category Payer Private Health Insurance [facility] GE[facility] CHOICE PLUS [id number] 2023-Present [phone] [address] [address] [place] [address] PPO [id number] 2019 Unknown [facility] DEPT OF L [employer] FECA [id number] 2019-Present [phone] [address] [place] [address] WC [id number] 2019 Unknown [id number] 1965 Unknown [id number] 1965 Unknown [id number] 1965 Unknown [id number] 1965 Unknown [id number] 1965 Unknown [id number] 1965 Unknown [id number] 1965 Unknown [id number] 1959 Unknown [id number] Social History Date Type Detail Facility Start: 07-06-2014 End: 02-07-2022 Tobacco smoking status Never smoked tobacco (finding) [facility] Start: 08-13-2023 Sex Assigned At Female [facility] Start: 07-28-2014 End: 08-13-2023 Alcohol intake Current drinker of alcohol (finding) [facility] Start: 1965 Sex Assigned At Not on file C [facility] Start: 08-13-2023 History of Social function [facility] National Score (1-10 0), lower number is lower risk 46 [facility] Functional Status Date Assessment Result Facility 05-26-2022 Functional Status N/A [facility] Clinical Notes 05-26-2022 to 09-29-2023 Telephone Encounter - Neema Campos - 09/29/2023 2:14 PM EDTTelephone Encounter - Neema Campos - 09/29/2023 2:14 PM Ramsey Lopez MD - 09/29/2023 9:05 AM EDT Note Date & Type Note Facility 09-29-2023 Telephone encounter Note Results from EMG performed on 09/29/2023 were faxed to Laine Granger at fax number on 09/29/2023. Fax confirmation received. [facility] 09-29-2023 Miscellaneous Notes Results from EMG performed on 09/29/2023 were faxed to Laine Granger at fax number on 09/29/2023. Fax confirmation received. documented in this encounter [facility] 09-29-2023 History of Presen t illness Narrative [...] Tech Ramsey Ndiaye MD Neuromuscular Medicine (NM) [facility] documented in this encounter [facility] 09-29-2023 Note HNO ID: [id number] Author: RAMSEY NDIAYE MD Service: ? Author [...] Visit completed when applicable. Neema Campos EMG Holger Ndiaye MD Neuromuscular Medicine (NM) [facility] 08-28-2023 Telephone encounter Note Spoke with [...] testing. Patient expressed understanding with these instructions. [facility] 08-28-2023 Miscellaneous Notes Spoke with Alyssa Lopez [...] with these instructions. documented in this encounter [facility] 08-24-[address] Mixon's note still not completed, I did call Nayeli at [employer]. We did discuss that the patient needs to find their old nerve conduction study and get a new nerve conduction study (Study can be request by POR) and then should follow-up with Dr. Mixon to discuss both. [facility] Work Phone: 08-24-[address] Mixon's note still not completed, I did call Nayeli at [employer]. We did discuss that the patient needs to find their old nerve conduction study and get a new nerve conduction study (Study can be request by POR) and then should follow-up with Dr. Mixon to discuss both. Name of Caller: Nayeli at [employer] Relationship to patient: Last visit in this department: 08/13/2023 Reason for Call: Other : Nayeli calling from Occupational Health to get office notes and any test results if applicable for the 08/13/23 visit. Please fax to [phone] Callback number: [phone] Fax Number (if necessary): [phone] Additional info if needed (Prior Auth #, Claim #, etc ): N/A Karly Leija documented in this encounter [facility] 08-20-2023 Telephone encounter Note Name of Caller: Nayeli at [facility] Relationship to patient: Last visit in this department: 08/13/2023 Reason for Call: Other : Nayeli calling from Occupational Health to get office notes and any test results if applicable for the 08/13/23 visit. Please fax to [phone] Callback number: [phone] Fax Number (if necessary): [phone] Additional info if needed (Prior Auth #, Claim #, etc ): N/A Karly Leija [facility] 08-13-2023 Note HNO ID: [id number] Author: LUCIO MIXON MD Service: ? Author Type: Physician Type: Progress Notes Filed: 09/08/2023 16:53 Note Text: Lucio Mixon MD Department of Orthopaedics Orthopaedic Surgery [facility] [address] [facility] [address] Dept: [phone] Dept August 13, 2023 CHIEF COMPLAINT: New [...] her origional EMG test. SHe'll have her [facility] POR get an c9 for a new [...] ONE DAILY MULTIVITAMIN ORAL Take by mouth. [place]-3 Fatty Acids-Vitamin E (FISH OIL) 1,000 mg [...] US mail. Laine Granger CNP [address] [facility] [address] Lucio Mixon MD [facility] 08-13-2023 History of Presen t illness Narrative Lucio Mixon MD Department of Orthopaedics Orthopaedic Surgery [facility] [address] [facility] [address] Dept: [phone] Dept August 13, 2023 CHIEF COMPLAINT: New [...] her origional EMG test. SHe'll have her [facility] POR get an c9 for a new [...] ONE DAILY MULTIVITAMIN ORAL Take by mouth. [place]-3 Fatty Acids-Vitamin E (FISH OIL) 1,000 mg [...] physician via US mail. Laine Granger CNP Formerly named [facility] [address] [facility] [address] Lucio Mixon MD documented in this encounter [facility] 08-13-2023 History of Presen t illness Narrative Radiology Service Progress Note PATIENT NAME: Alyssa [...] PATIENT PRESENTS WITH AN IMPLANTABLE OR ATTACHED STATE COMPTROLLER: No RADIOLOGY DEPARTMENT: General X-ray: Exam(s) Completed: Upper Extremity X-Ray(s): Wrist, left PERIPHERAL IV DATA: Not applicable SIGNED BY: RT Brian(Gabriel) August 13, 2023 9:24 AM documented in this encounter [facility] 08-13-2023 Note HNO ID: [id number] Author: CONSTANCE VERMA RT(Gabriel) Service: ? Author Type: Technologist Type: Progress [...] PATIENT PRESENTS WITH AN IMPLANTABLE OR ATTACHED STATE COMPTROLLER: No RADIOLOGY DEPARTMENT: General X-ray: Exam(s) Completed: Upper Extremity X-Ray(s): Wrist, left PERIPHERAL IV DATA: Not applicable SIGNED BY: RT Brian(Gabriel) August 13, 2023 9:24 AM [facility] 04-22-2023 Note Patient ID: Alyssa Lopez is [...] to verify the correct patient, procedure, equipment, wan support specialist and site/side marked as required. [facility] 02-10-2023 Note Orthopedic Surgery Subjective 10/01/2022 [...] disease) Kidney stone Migraines Objective Left Hand: Dfhpbojykt-fnan-ganzjj scar from carpal tunnel incision. Thumb: normal A1 winnie and AROM, Index finger: normal A1 winnie and AROM, Long finger: normal A1 winnie and AROM, Ring finger: normal A1 winnie and AROM, and Small finger: normal A1 winnie and AROM Strength: large animal veterinarian 4+/5, thumb 4+/5, interossei 5/5 Sensation: intact [...] and see her back at that time. [facility] 11-26-2022 Note Attestation signed by Max [...] disease) Kidney stone Migraines Objective Left Hand: Lssmtsagmp-zlsq-iqhvuw scar from carpal tunnel incision. Thumb: normal A1 winnie and AROM, Index finger: normal A1 winnie and AROM, Long finger: normal A1 winnie and AROM, Ring finger: normal A1 winnie and AROM, and Small finger: normal A1 winnie and AROM Strength: large animal veterinarian 5/5, thumb 5/5, interossei 5/5 Sensation: intact [...] SHERIFF MD Orthopedic Surgery, PGY-2 Ortho Pager [phone] 11/26/22 3:14 PM [facility] 10-15-2022 Note Attestation signed by Max [...] SHERIFF MD Orthopedic Surgery, PGY-2 Ortho Pager [phone] 10/15/22 1:20 PM [facility] 10-01-2022 Note Patient: Guillermina curry Procedure Summary Date: 10/01/22 Room / Location: [facility] OR [address] [place] [address] GIS OR Anesthesia Start: 833 Anesthesia Stop: 899 [...] per anesthesia protocol. No notable events documented. [facility] 10-01-2022 Note Patient: Guillermina curry Procedure Information Date/Time: 10/01/2230 Procedure: CARPAL TUNNEL RELEASE (Left: Hand) Location: [facility] OR [address] [place] [address] OR Surgeons: Max Kowalski MD Relevant Problems [...] Plan discussed with attending. Additional Equipment Requests [facility] 05-26-2022 Hospital Discharg e instructions Follow Up Care 05/26/2022 09:33:22 With:JEFFREY AVELAR, Hoda Rios, URL Address: [facility] [address] , [place] [phone] When: Unknown [facility] 05-26-2022 Hospital Discharg e instructions Patient [...] potassium each day. These include: ?Avocado. ?Banana. ?Delancey, prune, carrot, or tomato juice. ?Baked potato. [...] Casseroles. Pizza. Lasagna. Frozen meals. Potato chips. Martiniquais fries. Summary You can reduce your risk [...] 07/18/2011 Document Revised: 07/13/2019 Document Reviewed: 03/03/2017 [employer] Patient Education 2020 [employer]. Follow Up Care 05/13/2021 09:33:00 With:Hoda SALMON MD, URL Address: [facility] [address] , [place] [address]- When: Unknown [facility] Evaluation + Plan note Future Appointments Appointment Date:05/26/2022 08:45:00 AM Scheduled Provider:Hoda SALMON MD Location:[facility] Appointment Type:URO Office Visit [facility] Evaluation + Plan note Future Appointments Appointment Date:05/26/2022 08:45:00 AM Scheduled Provider:[facility] Office Visit Diagnostic Tests PendingUrine Culture 07/02/21 [facility] Evaluation + Plan note Future Appointments Appointment Date:05/29/2023 08:00:00 AM Scheduled Provider:Hoda SALMON MD Location:[facility] Appointment Type:URO Office Visit [facility] Evaluation note Diagnosis Pain- Primary Generalized pain [facility] Diagnosis Sprain of left wrist, sequela- Primary Carpal tunnel syndrome of left wrist Carpal tunnel syndrome [facility] Diagnosis Numbness and tingling in left hand- Primary Disturbance of skin sensation [facility] Sprain of left wrist, sequela Carpal tunnel syndrome of left wrist Carpal tunnel syndrome documented in this encounter [facility] note* Diagnosis Pain Generalized pain [facility] Narrative No data available for this section [facility] Hospital Discharge instructions No data available for this section [facility] progress note No data available for this section [facility] reason for referral (narrative)* Diagnostic Procedure Only (Routine) - Pending Review Specialty Diagnoses / Procedures Referred By Janessa harris Referred To Contact XR IMAGING Diagnoses Pain Procedures XR WRIST INJURY 4V PA/LAT/OBL/SCAPH LEFT RADEX WRIST COMPLETE MINIMUM 3 VIEWS Lucio Mixon MD [address] [place] [address] [place] [address] Referral ID Status Reason Start Date Expiration Date Visits Requested Visits Authorized [id number] Pending Review Auto-Generat ed Referral 07/31/2023 08/29/2024 1 1 * Diagnostic Procedure Only (Routine) - Authorized Specialty Diagnoses / Procedures Referred By Janessa harris Referred To Contact XR IMAGING Diagnoses Pain Procedures XR WRIST GENERAL 3V PA/LAT/OBL LEFT RADEX WRIST COMPLETE MINIMUM 3 VIEWS Lucio Mixon MD [address] [place] [id number] [place] [address] Referral ID Status Reason Start Date Expiration Date Visits Requested Visits Authorized [id number] Authorized Auto-Generat ed Referral 07/31/2023 08/29/2024 1 1 [facility] for referral (narrative)* Outpatient Procedure (Routine) - Pending Review Specialty Diagnoses / Procedures Referred By Janessa t Referred To Contact [facility] Diagnoses Sprain of left wrist, sequela Carpal tunnel syndrome of left wrist Procedures EMG(NEURO/NI) NERVE CONDUCTION STUDIES 9-10 STUDIES Ines Coker MD [address] [place] [address] [facility] [address] [place] [id number] Referral ID Status Reason Start Date Expiration Date Visits Requested Visits Authorized [id number] Pending Review Auto-Generat ed Referral 08/25/2023 08/24/2024 1 1 [facility] Summary Purpose Family History No Family History Records FoundNo Family History Records FoundNo Family History Records Found No data available for this section No Family History Records FoundNo Family History Records Found Advance Directives No Advanced Directives Records FoundNo Advanced Directives Records FoundNo Advanced Directives Records FoundNo Advanced Directives Records FoundNo Advanced Directives Records Found Reason for Referral Specialty Diagnoses / Procedures Referred By Janessa t Referred To Contact XR IMAGING Diagnoses Pain Procedures XR WRIST GENERAL 3V PA/LAT/OBL LEFT RADEX WRIST COMPLETE MINIMUM 3 VIEWS Lucio Mixon MD [address] [place] [address] Xr Imaging [place] [address] Referral ID Status Reason Start Date Expiration Date V isits Requested Visits Authorized [id number] Closed Auto-Generat ed Referral Patient Cleared - Admin/Chairm an/Director advise to proceed or did not respond 08/13/2023 08/13/2023 1 1 Additional Source Comments INFORMATION SOURCE (unrecogn ized section and content) DATE CREATED AUTHOR 05/29/2021 [facility] DATE CREATED AUTHOR AUTHOR'S ORGANIZ ATION 08/21/[address] 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 Relationship Specialty Start Date End Date Laine Granger CNP [address] [facility] [place] [address] Referring Family Medicine 07/24/23 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 Relationship Specialty Start Date End Date Laine Granger LYLY [address] [place] [address] Referring Family Medicine 07/24/23 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 Relationship Specialty Start Date End Date Laine Granger CNP [address] [place] [address] Referring Family Medicine 07/24/23 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 Relationship Specialty Start Date End Date Laine Granger SLICE CUTTING MACHINE OPERATOR [address] [place] [address] Referring Family Medicine 07/24/23 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 Relationship Specialty Start Date End Date Laine Granger LYLY [address] [place] [address] Referring Family Medicine 07/24/23 Source Comments (unrecognize d section and content) In the event this informatio n is protected by the Federal Confidentiality of Alcohol and Drug Abuse Patient Records regulations: The Federal rules restrict any use of the information to criminally investigate or prosecute any alcohol or drug abuse patient.[facility] the event this information is protected by the Federal Confidentiality of Alcohol and Drug Abuse Patient Records regulations: The Federal rules restrict any use of the information to criminally investigate or prosecute any alcohol or drug abuse patient.[facility] the event this information is protected by the Federal Confidentiality of Alcohol and Drug Abuse Patient Records regulations: The Federal rules restrict any use of the information to criminally investigate or prosecute any alcohol or drug abuse patient.[facility] the event this information is protected by the Federal Confidentiality of Alcohol and Drug Abuse Patient Records regulations: The Federal rules restrict any use of the information to criminally investigate or prosecute any alcohol or drug abuse patient.TrihealthIn the event this information is protected by the Federal Confidentiality of Alcohol and Drug Abuse Patient Records regulations: The Federal rules restrict any use of the information to criminally investigate or prosecute any alcohol or drug abuse patient.TrihealthIn the event this information is protected by the Federal Confidentiality of Alcohol and Drug Abuse Patient Records regulations: The Federal rules restrict any use of the information to criminally investigate or prosecute any alcohol or drug abuse patient.TrihealthIn the event this information is protected by the Federal Confidentiality of Alcohol and Drug Abuse Patient Records regulations: The Federal rules restrict any use of the information to criminally investigate or prosecute any alcohol or drug abuse patient.TrihealthIn the event this information is protected by the Federal Confidentiality of Alcohol and Drug Abuse Patient Records regulations: The Federal rules restrict any use of the information to criminally investigate or prosecute any alcohol or drug abuse patient.[facility] Reason for Visit (unrecogniz ed section and content) Reason Comments EMG Instructions Reason Comments New Pain Specialty Diagnoses / Procedures Referred By Janessa harris Referred To Contact Orthopedics / ORTHOPAEDIC SURGERY Diagnoses sprain of left wrist, alin is coming in for seccond opinion, had carple tunnel surgery on this wrist october 02, 2022 Procedures [facility] Bárbara, Laine, SLICE CUTTING MACHINE OPERATOR [address] [place] [address] Lucio Mixon MD [address] [place] [address] Referral ID Status Reason Start Date Expiration Date V isits Requested Visits Authorized [id number] Closed Patient Cleared - Admin/Chairm an/Director advise to proceed or did not respond 08/13/2023 08/13/2023 1 1 Specialty Diagnoses / Procedures Referred By Contac t Referred To Contact [facility] Diagnoses Sprain of left wrist, sequela Carpal tunnel syndrome of left wrist Procedures [facility]G(NEURO/NI) NERVE CONDUCTION STUDIES 9-10 STUDIES Ines Coker MD [address] [id number] [facility] [address] [place] [address] Referral ID Status Reason Start Date Expiration Date V isits Requested Visits Authorized [id number] Closed Auto-Generate d Referral 09/29/2023 10/29/2023 1 1 Reason Comments EMG- FAXED RESULTS Reason Comments Radio Gen RMP Specialty Diagnoses / Procedures Referred By Contac t Referred To Contact XR IMAGING Diagnoses Pain Procedures XR WRIST GENERAL 3V PA/LAT/OBL LEFT RADEX WRIST COMPLETE MINIMUM 3 VIEWS Lucio Mixon MD [address] [place] [address] [facility] [place] [address] Referral ID Status Reason Start Date Expiration Date V isits Requested Visits Authorized [id number] Closed Auto-Generat ed Referral Patient Cleared - Admin/Chairm an/Director advise to proceed or did not respond 08/13/2023 08/13/2023 1 1 FOR RECORDS PERTAINING TO PATIENTS WHO ARE [...] BE BASED ON THE PRIMARY CLINICAL RECORDS. [facility]. provides no warranty or guarantee of the accuracy or completeness of information in this document.
[2023-12-23 10:26] VITALS: BMI 38.7
--- NOTE | 2023-12-23 10:33 | P.DS_ITS ---
Discharge Plan Discharge Disposition: Home, Self-Care Discharge Medications: No Action lansoprazole 30 mg capsule,delayed release(DR/EC) 30 mg PO DAILY multivitamin [Daily Multi-Vitamin] Tablet 1 tab PO DAILY cetirizine [Zyrtec] 10 mg tablet 10 mg PO DAILY PRN (Reason: allergy symptoms) ondansetron 4 mg tablet,disintegrating 4 mg PO Q8H PRN (Reason: nausea and vomiting) 5 Days Qty: 15 0RF tizanidine 2 mg tablet 2 mg PO TID PRN (Reason: muscle spasticity) 7 Days Qty: 21 0RF Outpatient Diagnostics: VC Endovenous Ablation 1VeinRT (Routine) Timeframe: 1 Month Facility: [facility] - Location: Vein Center Ordered By: Carlos Conde Follow Up Appointments: 01/05/24 Plan of Treatment: EVLT of right GSV EVLT Tumescent Anesthesia: 500 mL 0.9% NS with 20 mL 1% Lidocaine and 10 mL 8.4% NAHCO3 Buffered Local Anesthesia: 10 mL of 1% Lidocaine Buffered Print Language: Moldovan Discharge Date/Time: 12/23/23 10:34
== END 2023-12-23 10:34 | disposition home or self-care (01) ==
PROVIDERS: PCP Radiology Diagnostic Radiology; Visit Provider Radiology Diagnostic Radiology
DX: I80.02 Phlebitis and thrombophlebitis of superficial vessels of left lower extremity (principal)
CPT/HCPCS: 93971; G0463

== ENCOUNTER 2024-01-05 07:54 | Outpatient (OUT) | payer OTHER, SELFPAY ==
--- NOTE | 2024-01-04 13:41 | V.VEINS.HP ---
Vital Signs 01/05/24 08:13 01/05/24 08:41 Height 5 ft 3 in Weight 99.7 kg BP 140/70 BP Location Left Brachial BP Position Sitting BP Cuff Size Adult BP Source Manual Cuff Respiration 16 Pulse 70 Pulse Source Monitor Pulse Oximetry (%) 98 Oxygen Delivery Method Room Air Comment The patient's blood pressure is elevated. Varicose Veins Patient in today for EVLT of right GSV Carlos Cristobal MD personally performed the services described in this documentation, as scribed by Stefan Hood RN in my presence and it is both accurate and complete. IStefan RN, am scribing for, and in the presence of, Dr. Carlos Conde and in the presence of the patient. thigh: bilateral (left > right leg), knee: bilateral, calf: bilateral, ankle: bilateral and funez: bilateral aching, cramping and tender 37 years Worsened in recent months: Yes standing and walking elevating extremities, compression stockings and exercise Reports muscle spasms of leg, fatigue, heaviness, restless legs, edema and leg edema History of lower extremity trauma: No Superficial thrombophlebitis: Yes (DVT to left leg) Family history of varicose veins: yes Has patient had previous lower extremity venous surgery: No Patient has previously received the following treatment(s) for lower extremity varicose veins: Reports none Does patient have a history of : yes Does patient intend to have future pregnancies: no Has patient had lower extremity venous scan with relux testing: No Support hose used: Yes Problems walking or doing physical activity: Yes How does it affect you: often has to rest and elevate legs/feet while and effects work Do you walk much: Yes Do you stand much: Yes Review of Systems ROS Narrative Carlos Cristobal MD personally performed the services described in this documentation, as scribed by Stefan Hood RN in my presence and it is both accurate and complete. IStefan RN, am scribing for, and in the presence of, Dr. Carlos Conde and in the presence of the patient. Status of ROS 10 or more systems reviewed and unremarkable except as noted in history and below Cardiovascular Reports: edema Integumentary/Breast Reports: skin swelling Neurological Reports: weakness in extremities [facility] Medical History (Updated 12/17/23 @ 07:50 by Ginger Friedman) Phlebitis and thrombophlebitis of superficial vessels of left lower extremity ?I80.02 - Phlebitis and thrombophlebitis of superficial vessels of left lower extremity (ICD-10) Varicose veins of bilateral lower extremities with pain ?I83.813 - Varicose veins of bilateral lower extremities with pain (ICD-10) Plantar fascial fibromatosis ?M72.2 - Plantar fascial fibromatosis (ICD-10) Contracture, left ankle ?M24.572 - Contracture, left ankle (ICD-10) Vertigo ?R42 - Dizziness and giddiness (ICD-10) Chronic cystitis ?N30.20 - Other chronic cystitis without hematuria (ICD-10) Chronic kidney disease ?N18.9 - Chronic kidney disease, unspecified (ICD-10) Urinary tract infection ?N39.0 - Urinary tract infection, site not specified (ICD-10) COVID-19 (04/16/23) ?U07.1 - COVID-19 (ICD-10) Migraine ?G43.909 - Migraine, unspecified, not intractable, without status migrainosus (ICD-10) S/P extracorporeal shock wave therapy ?Z98.890 - Other specified postprocedural states (ICD-10) Kidney stones ?N20.0 - Calculus of kidney (ICD-10) Seasonal allergies ?J30.2 - Other seasonal allergic rhinitis (ICD-10) GERD (gastroesophageal reflux disease) ?K21.9 - Gastro-esophageal reflux disease without esophagitis (ICD-10) Surgical History (Updated 01/05/24 @ 09:21 by Stefan Hood) Status post laser ablation of incompetent vein ?Z98.890 - Other specified postprocedural states (ICD-10) Status post laser ablation of incompetent vein ?Z98.890 - Other specified postprocedural states (ICD-10) History of endometrial ablation ?Z98.890 - Other specified postprocedural states (ICD-10) History of spinal surgery ?Z98.890 - Other specified postprocedural states (ICD-10) History of tonsillectomy ?Z90.89 - Acquired absence of other organs (ICD-10) H/O hand surgery ?Z98.890 - Other specified postprocedural states (ICD-10) History of foot surgery ?Z98.890 - Other specified postprocedural states (ICD-10) History of carpal tunnel release ?Z98.890 - Other specified postprocedural states (ICD-10) Family History (Updated 11/12/23 @ 10:49 by Stefan Hood) Other Family history of diabetes mellitus Family history of hypertension Family history of myocardial infarction Pain due to varicose veins of both lower extremities Social History Within the past year, how often did you have a drink containing alcohol: 2-4 times a month Smoking status: Never smoker Non-prescribed substance use: denies use 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 Highest level of school completed/degree received: high school graduate Meds Home Medications and Allergies Home Medications ?Medication ?Instructions ?Recorded ?Confirmed ?Type cetirizine 10 mg tablet (Zyrtec) 10 mg PO DAILY PRN allergy symptoms 05/19/23 11/12/23 History lansoprazole 30 mg capsule,delayed 30 mg PO DAILY 05/19/23 11/12/23 History release multivitamin (Daily Multi-Vitamin 1 tab PO DAILY 05/19/23 11/12/23 History tablet) ondansetron 4 mg disintegrating 4 mg PO Q8H PRN nausea and 06/04/23 11/12/23 Rx tablet vomiting 5 days #15 tabs tizanidine 2 mg tablet 2 mg PO TID PRN muscle spasticity 06/04/23 11/12/23 Rx 7 days #21 tabs Allergies Allergy/AdvReac Type Severity Reaction Status Date / Time levofloxacin [From Levaquin] Allergy Muscle Pain Verified 06/29/23 14:18 phenobarbital Allergy Unknown Verified 06/29/23 14:18 Sulfa (Sulfonamide Allergy Rash Verified 06/29/23 14:18 Antibiotics) Exam Narrative Exam Narrative: ICarlos MD personally performed the services described in this documentation, as scribed by Stefan Hood RN in my presence and it is both accurate and complete. IStefan RN, am scribing for, and in the presence of, Dr. Carlos Conde and in the presence of the patient. Constitutional Documenting provider has reviewed patient's vital signs: yes Common normals: oriented x3 Nutritional appearance: overweight Cardio Peripheral pulses: dorsalis pedis pulses present Extremity Common normals: normal capillary refill General: edema Right lower extremity: lower leg Right lower leg: inspection and palpation Left lower extremity: lower leg Left lower leg: inspection and palpation Neuro Common normals: oriented x3 Assessment and Plan Assessment and Plan (1) Varicose veins of bilateral lower extremities with pain: Plan f/u evaluation with physician along with right leg limited u/s Carlos Cristobal MD personally performed the services described in this documentation, as scribed by Stefan Hood RN in my presence and it is both accurate and complete. I, Stefan Hood RN, am scribing for, and in the presence of, Dr. Carlos Conde and in the presence of the patient. Procedures Procedure Instructions Procedures Plan of care: Risks and benefits of the procedure were discussed at length and informed written consent was obtained.? Time-out completed for verification of correct patient, procedure and site.? Staff present during time-out: Stefan Hood RN,? Carlos Conde MD, Nel James [facility] Time Out Time__850 Patient prepped and procedure performed in usual sterile fashion. Risk of injury related to use of Diode laser and/or laser devices__CR___ ? Serial number of laser used :? [id number] Control panel self test performed, electrical cords in good condition, floor is dry, basin of water available, fire extinguisher in close proximity_CR__ Polycarbonate goggles available and Laser warning signs outside of doors___CR__ Eye protection provided to patient and staff in room_CR___ Use of laser retardant drapes and dull blackened instruments as directed__CR___ Use of nonflammable prep solutions and use of saline soaked sponges to protect tissues as indicated _CR___ Length __30 cm Laser operated by __Dr. Conde Physician verbal confirmation laser locked in place__CR__ Laser start time (date and time) _01/05/2024@_0903 Laser stop time(date and time) __01/05/2024@__0906 Guileln _8.0___ Average laser use __1369 Joules Average laser use____171____seconds Pulse continuous ___CR_? Pulse intermittent ___ Amount of Tumescent used _200cc Evaluated patient for signs and symptoms of electrical injury __CR___ ? Skin clear at insertion site __CR___ Patient tolerated procedure well.? Right leg Coban dressing applied to access site.? Applied right thigh high leg compression stocking. Will return on 01/13/2024 for right leg limited venous ultrasound and exam. ICarlos MD personally performed the services described in this documentation, as scribed by Stefan Hood RN in my presence and it is both accurate and complete. I, Stefan Hood RN, am scribing for, and in the presence of, Dr. Carlos Conde and in the presence of the patient.
--- NOTE | 2024-01-04 13:49 | W.VEIN ---
Discharge Plan Discharge Disposition: Home, Self-Care Outpatient Diagnostics: VC Facility EST LMTD (Routine) Timeframe: 2 Weeks Facility: [facility] - Location: Vein Center Ordered By: Carlos Conde VC EXT Venous RT LMTD (Routine) Timeframe: 2 Weeks Facility: [facility] - Location: Vein Center Ordered By: Carlos Conde Follow Up Appointments: 01/13/2024@1300 Plan of Treatment: f/u evaluation with physician along with right leg limited u/s Patient Instructions: Polidocanol (By injection) (Asclera, Varithena) Print Language: Yoruba
--- NOTE | 2024-01-05 08:04 | VEIN_ITS ---
[address] [address] Patient Name: KASSANDRA LOPEZ MRN: [id number] date: 1965 Sex: F Assigned Patient Location: Current Patient Location: Accession/Order Number: [id number] Exam Date: 01/05/2024 08:10 Report Date: 01/05/2024 09:57 At the request of: CONSTANCE HERNANDEZ Procedure: VC Endovenous Ablation 1VeinRT EXAMINATION: VC Endovenous Ablation 1Vein right great saphenous vein HISTORY: I83.813 - Varicose veins of bilateral lower extremities w... COMPARISON: No relevant comparison available. TECHNIQUE: The risks and benefits of the procedure had been previously discussed, and were rediscussed at length. Informed written consent was obtained. Nel James and Stefan Hood assisted. Time out procedure was performed. The right lower extremity was prepared and draped in the usual sterile fashion to allow knee flexion in the sterile field. Duplex ultrasound probe was draped in a sterile cover, sterile transmission gel was used. Venous mapping was performed with the areas of dilation and large tributaries marked. The total length was 30 cm from the entry at the knee to 3 cm below the saphenofemoral junction, the vein below this area was extrafascial and tortuous. The diameter of the greater saphenous vein ranged from 4-12 mm. A 30 gauge needle and 1% buffered lidocaine was used to anesthetize the entry site. A 4 mm incision was made with a scalpel and the saphenous vein was entered percutaneously under direct ultrasound guidance with a micropuncture set, a single stick was successful in gaining access. A micro-guide wire was inserted and the needle removed. A micro-set including a dilator was inserted over the microwire and the needle and dilator were removed. A 0.018 guide wire was inserted through the micro-set and threaded through the saphenous vein to the saphenofemoral junction. The dilator was removed and an introducer sheath was inserted over the wire until the end of the sheath entered the saphenofemoral junction. The dilator and wire were removed and the 600 micron fiber was introduced and placed and positioned so that it extended beyond the sheath and was 3 cm peripheral to the saphenofemoral femoral junction. Final position of the fiber was determined by ultrasound guidance and duplex imaging. Tumescent anesthetic was delivered by ultrasound guidance. 200 cc of fluid was delivered along the entire course of the saphenous vein. The solution consisted of 1000 cc of normal saline with 40 mL of 1% lidocaine and 20 mL of sodium bicarbonate. A final positioning check was made. The energy source was turned on by means of the foot pedal and the fiber and sheath were withdrawn. The total number of Joules delivered was 1369. The laser was active for 171 seconds under continuous pulse, average laser use of 8 J. Laser start time 903 AM 01/05/2024. Laser stop time 906AM 01/05/2024. A duplex ultrasound revealed compressibility and flow at the saphenofemoral junction immediately after the procedure. Hemostasis at the access site was achieved. The skin incision of the saphenous vein was closed with a 4 x 4. A compression stocking was applied. Postop instructions were given. A follow up appointment was recommended and scheduled. The patient tolerated the procedure well and was discharged in good condition . VEIN/VC Endovenous Ablation 1VeinRT IMPRESSION: Technically successful endovenous laser ablation of the right great saphenous vein Electronically authenticated by: CONSTANCE HRENANDEZ Date: 01/05/2024 09:57
[2024-01-05 08:13] VITALS: BP 140/70; PULSE 70; O2SAT 98
[2024-01-05] MEDS: 0.9 % SODIUM CHLORIDE 500 ML, LIDOCAINE HCL 20 ML, SODIUM BICARBONATE 10 MEQ INJ (08:35)
[2024-01-05] MEDS: LIDOCAINE HCL 1% 100 MG/10 ML MDV INJ (08:36)
== END 2024-01-05 07:55 | disposition home or self-care (01) ==
LOC: VC 08:03
PROVIDERS: PCP Radiology Diagnostic Radiology; Visit Provider Radiology Diagnostic Radiology
DX: I83.813 Varicose veins of bilateral lower extremities with pain (principal)
CPT/HCPCS: 36478

== ENCOUNTER 2024-01-12 12:56 | Outpatient (OUT) | payer OTHER, SELFPAY ==
--- NOTE | 2024-01-12 12:58 | VEIN_ITS ---
Patient Name: KASSANDRA LOPEZ MR#: [id number] : 1965 Exam Date: 01/12/2024 Ordering Doctor: DR CONSTANCE HERNANDEZ M.D. RADIOLOGY REPORT PROCEDURE: VC EXT VENOUS RT LMTD COMPARISON: None. INDICATIONS: I80.01 - Phlebitis and thrombophlebitis of superficial ve... TECHNIQUE: Lower extremity bone scale and Duplex Doppler evaluation of the deep venous system from the inguinal ligament through the calf veins. FINDINGS: REGION: Right lower extremity. THROMBI: Negative for DVT. Heat induced thrombus visualized 3.1cm from the SFJ. The heat induced thrombus extends from groin to distal thigh. COMPRESSIBILITY: Non-compressible segments corresponding to thrombus FLOW: Areas of no flow corresponding to thrombus OTHER: CONCLUSION: 1. Successful post ablation occlusion of right great saphenous vein. Dictated by: Evan Carlin M.D. on 01/12/2024 at 13:43 Approved by: Evan Carlin M.D. on 01/12/2024 at 13:44
--- NOTE | 2024-01-12 12:58 | VEIN_ITS ---
Patient Name: KASSANDRA LOPEZ MR#: [id number] : 1965 Exam Date: 01/12/2024 Ordering Doctor: DR CONSTANCE HERNANDEZ M.D. RADIOLOGY REPORT PROCEDURE: [facility] EST LMTD VEIN [facility]ENTER - OFFICE VISIT FOLLOW UP [facility] PROGRESS NOTES: The patient reports improvement in leg symptoms. There has been interval reduction in varicosities. The patient has followed our recommendations to walk 20-30 minutes once or twice per day since the procedure. Physical exam demonstrates decrease in varicosities of the leg. Persistent varicosities are identified along the legs bilaterally. Review of the ultrasound performed the same day demonstrates occlusive thrombus extending throughout the treated vein(s), see separate report, consistent with a successful ablation. No thrombus extending into or beyond the saphenofemoral junction. The patient expressed a desire to proceed with treatment of remaining incompetent varicosities. The patient was informed that treatment was a process and would require several procedures/sessions. VEIN/[facility] LMTD IMPRESSION: 1. Successful ablation of the right great saphenous vein(s). 2. Persistent varicose veins and lower extremity symptoms. PLAN: 1. Endovenous laser ablation of left great saphenous vein. Nurse notes, history and physical were reviewed and confirmed, see attached forms. The nurse was present throughout the physical exam and consultation Dictated by: Evan Carlin M.D. on 01/12/2024 at 13:44 Approved by: Evan Carlin M.D. on 01/12/2024 at 13:45
[2024-01-12 13:00] VITALS: BMI 38.7
--- NOTE | 2024-01-12 13:00 | VEINCLINIC_ITS ---
Vital Signs 01/12/24 13:00 Height 5 ft 3 in Weight 99 kg BMI 38.7 Varicose Veins Patient in today for follow up ultrasound post EVLT of right GSV Evan Cristobal MD personally performed the services described in this documentation, as scribed by Ginger Friedman RVT, RDMS in my presence and it is both accurate and complete. Ginger Cristobal RVT, RDMS, am scribing for, and in the presence of, Dr. Evan Carlin and in the presence of the patient. thigh: bilateral (left > right leg), knee: bilateral, calf: bilateral, ankle: bilateral and funez: bilateral aching, cramping and tender 37 years Worsened in recent months: Yes standing and walking elevating extremities, compression stockings and exercise Reports muscle spasms of leg, fatigue, heaviness, restless legs, edema and leg edema History of lower extremity trauma: No Superficial thrombophlebitis: Yes (DVT to left leg) Family history of varicose veins: yes Has patient had previous lower extremity venous surgery: No Patient has previously received the following treatment(s) for lower extremity varicose veins: Reports none Does patient have a history of : yes Does patient intend to have future pregnancies: no Has patient had lower extremity venous scan with relux testing: No Support hose used: Yes Problems walking or doing physical activity: Yes How does it affect you: often has to rest and elevate legs/feet while and effects work Do you walk much: Yes Do you stand much: Yes Review of Systems ROS Narrative Evan Cristobal MD personally performed the services described in this documentation, as scribed by Ginger Friedman RVT, RDMS in my presence and it is both accurate and complete. Ginger Cristobal RVT, RDMS, am scribing for, and in the presence of, Dr. Evan Carlin and in the presence of the patient. 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 ?I80.01 - Phlebitis and thrombophlebitis of superficial vessels of right lower extremity (ICD-10) Phlebitis and thrombophlebitis of superficial vessels of left lower extremity ?I80.02 - Phlebitis and thrombophlebitis of superficial vessels of left lower extremity (ICD-10) Varicose veins of bilateral lower extremities with pain ?I83.813 - Varicose veins of bilateral lower extremities with pain (ICD-10) Plantar fascial fibromatosis ?M72.2 - Plantar fascial fibromatosis (ICD-10) Contracture, left ankle ?M24.572 - Contracture, left ankle (ICD-10) Vertigo ?R42 - Dizziness and giddiness (ICD-10) Chronic cystitis ?N30.20 - Other chronic cystitis without hematuria (ICD-10) Chronic kidney disease ?N18.9 - Chronic kidney disease, unspecified (ICD-10) Urinary tract infection ?N39.0 - Urinary tract infection, site not specified (ICD-10) COVID-19 (04/16/23) ?U07.1 - COVID-19 (ICD-10) Migraine ?G43.909 - Migraine, unspecified, not intractable, without status migrainosus (ICD-10) S/P extracorporeal shock wave therapy ?Z98.890 - Other specified postprocedural states (ICD-10) Kidney stones ?N20.0 - Calculus of kidney (ICD-10) Seasonal allergies ?J30.2 - Other seasonal allergic rhinitis (ICD-10) GERD (gastroesophageal reflux disease) ?K21.9 - Gastro-esophageal reflux disease without esophagitis (ICD-10) Surgical History (Updated 01/05/24 @ 09:21 by Stefan Hood) Status post laser ablation of incompetent vein ?Z98.890 - Other specified postprocedural states (ICD-10) Status post laser ablation of incompetent vein ?Z98.890 - Other specified postprocedural states (ICD-10) History of endometrial ablation ?Z98.890 - Other specified postprocedural states (ICD-10) History of spinal surgery ?Z98.890 - Other specified postprocedural states (ICD-10) History of tonsillectomy ?Z90.89 - Acquired absence of other organs (ICD-10) H/O hand surgery ?Z98.890 - Other specified postprocedural states (ICD-10) History of foot surgery ?Z98.890 - Other specified postprocedural states (ICD-10) History of carpal tunnel release ?Z98.890 - Other specified postprocedural states (ICD-10) Family History (Updated 11/12/23 @ 10:49 by Stefan Hood) Other Family history of diabetes mellitus Family history of hypertension Family history of myocardial infarction Pain due to varicose veins of both lower extremities Social History Within the past year, how often did you have a drink containing alcohol: 2-4 times a month Smoking status: Never smoker Non-prescribed substance use: denies use 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 Highest level of school completed/degree received: high school graduate Meds Home Medications and Allergies Home Medications ?Medication ?Instructions ?Recorded ?Confirmed ?Type cetirizine 10 mg tablet (Zyrtec) 10 mg PO DAILY PRN allergy symptoms 05/19/23 11/12/23 History lansoprazole 30 mg capsule,delayed 30 mg PO DAILY 05/19/23 11/12/23 History release multivitamin (Daily Multi-Vitamin 1 tab PO DAILY 05/19/23 11/12/23 History tablet) ondansetron 4 mg disintegrating 4 mg PO Q8H PRN nausea and 06/04/23 11/12/23 Rx tablet vomiting 5 days #15 tabs tizanidine 2 mg tablet 2 mg PO TID PRN muscle spasticity 06/04/23 11/12/23 Rx 7 days #21 tabs Allergies Allergy/AdvReac Type Severity Reaction Status Date / Time levofloxacin [From Levaquin] Allergy Muscle Pain Verified 06/29/23 14:18 phenobarbital Allergy Unknown Verified 06/29/23 14:18 Sulfa (Sulfonamide Allergy Rash Verified 06/29/23 14:18 Antibiotics) Exam Narrative Exam Narrative: IEvan MD personally performed the services described in this documentation, as scribed by Ginger Friedman RVT, RDMS in my presence and it is both accurate and complete. Ginger Cristobal RVT, RDMS, am scribing for, and in the presence of, Dr. Evan Carlin and in the presence of the patient. Constitutional Documenting provider has reviewed patient's vital signs: yes Common normals: oriented x3 Nutritional appearance: overweight Cardio Peripheral pulses: dorsalis pedis pulses present Extremity Common normals: normal capillary refill General: edema Right lower extremity: lower leg Right lower leg: inspection and palpation Left lower extremity: lower leg Left lower leg: inspection and palpation Neuro Common normals: oriented x3 Results Imaging Venous US: Radiologist's impression: The ultrasound demonstrates Heat induced thrombus visualized 3.1cm from the SFJ. The heat induced thrombus extends from groin to distal thigh. 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
--- OUTSIDE RECORDS SUMMARY | 2024-01-12 13:00 | XMS_ITS | CCD ---
Author Organization [facility] Care Team Providers Care Client Operations Manager Name Role Phone Shai Lau Primary [...] MAX Attending Unavailable SKIE, MAX Attending Unavailable Bárbara CNP, Laine Unavailable [phone] Bárbara CNP, Laine Unavailable [phone] INES COKER Referring Unavailable LAINE GRANGER Referring Unavailable LUCIO MIXON Attending Unavailable LUCIO MIXON Referring Unavailable Hoda SALMON Attending Unavailable Allen Noriega Admitting Unavailable Allen Noriega Attending Unavailable Allen Noriega Referring Unavailable Allen Noriega Admitting Unavailable Allen Norigea Attending Unavailable Allergies Allergy Classification Reported Allergen(s) Allergy Type Date of Onset Reaction(s) Facility (8 sources) levoFLOXacin; Translations: [levofloxacin] Drug Allergy 02-22-20 16 .. [facility] (17 sources) PHENobarbital; Translations: [phenobarbital] Drug Allergy 07-07-19 15 Unknown [facility] (7 sources) Sulfonamides (Antibiotic); Translations: [sulfa drugs] Drug allergy RASH [facility] (1 source) benzoin resin Drug Allergy 08-21-19 16 [facility] (1 source) levoFLOXacin Drug Allergy 08-21-19 16 [facility] (1 source) Sulfonamides (Antibiotic) Drug allergy (disorder) 08-21-19 16 [facility] (10 sources) Sulfamethoxazole / Trimethoprim; Translations: [SULFAMETHOXAZOLE-TR IMETHOPRIM] Drug Allergy 07-07-19 15 [facility] (1 source) Sulfonamides (Antibiotic); Translations: [SULFA (SULFONAMIDE ANTIBIOTICS)] Propensity to adverse reactions to drug (disorder) 12-20-19 15 [facility] Medications Current Medications Medication Drug Class(es) Dates Sig (Normalized) Sig (Original) Airborne Gummies (6 sources) Start: 04-16-2020 Airborne Gummies Chewed, Daily [...] day(s), # 14 cap(s), Refills(s) 0, Pharmacy: [facility]/pharmacy #[id number], 161, cm, 05/13/21 9:04:00 EST, Height/Length Dosing, 91.5, kg, 05/13/21 9:04:00 EST, Weight Dosing Start Date: 07/02/21 Stop Date: 07/09/21 Status: Ordered fluconazole 150 mg oral tablet (2 sources) Azole Antifungal Start: 07-02-2021 End: 07-09-2021 Diflucan 150 mg Tab See Instructions, 1 tab po q72 hrs x 3 doses, then dc, # 3 tab(s), Refills(s) 0, Pharmacy: [facility]/pharmacy #[id number], 161, cm, 05/13/21 9:04:00 EST, Height/Length Dosing, 91.5, kg, 05/13/21 9:04:00 EST, Weight Dosing Start Date: 07/02/21 Stop Date: 07/09/21 Status: Ordered Prevacid (6 sources) Proton Pump Inhibitor Start: 09-19-2019 Prevacid Oral, Daily, Refills(s) 0 Start Date: 09/19/19 Status: Ordered metoclopramide 5 mg oral tablet (8 sources) Dopamine-2 Receptor Antagonist take 1 tablet by mouth once daily at bedtime metoclopramide HCl (REGLAN) 5 mg tablet Take 5 mg by mouth daily at bedtime. Active Multivitamin, Therapeutic w/ Minerals (6 sources) Start: 01-11-2016 take 1 tablet by mouth once daily Multivitamin, Therapeutic w/ Minerals 1 tab(s), Oral, Daily, Refill(s) 0, Prophylaxis Start Date: 01/11/16 Status: Ordered De Lancey-3 Fatty Acids-Vitamin E (FISH OIL) 1,000 mg cap (8 sources) De Lancey-3 Fatty Acids-Vitamin E (FISH OIL) 1,000 mg cap Take 1 capsule by mouth. Active De Lancey-3 Fatty Ac ids-Vitamin E (FISH OIL) 1,000 mg cap Take 1 capsule by mouth. 0 Active ONE DAILY MULTIVITAMIN ORAL (8 sources) ONE DAILY MULTIV ITAMIN ORAL Take by mouth. Active ONE DAILY MULTIV ITAMIN ORAL Take by mouth. 0 Active Problems Active Problems Problem Classification Problem Date Documented Date Episodic/Chronic Abdominal pain (6 sources) Abdominal pain 04-16-2020 Episodic Calculus of urinary tract (12 sources) Kidney stone; Translations: [Calculus of kidney] Onset: 3 05-30-2019 Episodic Disorders of lipid metabolism (1 source) Pure hypercholesterolemia, unspecified; Translations: [PURE HYPERCHOLESTEROLEMIA UNSPEC] Onset: 3 Chronic Genitourinary symptoms and ill-defined conditions (8 sources) Female stress incontinence; Translations: [Stress incontinence (female) (male)] Onset: 3 05-30-2019 Chronic Genitourinary symptoms and ill-defined conditions (19 sources) Microscopic hematuria; Translations: [Other microscopic hematuria] [...] Translations: [Post-op] Onset: 3 Urinary tract infections (8 sources) Chronic cystitis; Translations: [Other chronic cystitis without hematuria] Onset: 3 04-16-2020 Chronic Urinary tract infections (6 sources) Urinary tract infectious disease 04-16-2020 Episodic Past or Other Problems Problem Classification Problem Date Documented Da te Episodic/Chronic Unclassified (1 source) CONTACT W/AND (SUSP) EXPOS COVID-19; Translations: [CONTACT W/AND (SUSP) EXPOS COVID-19] Onset: 11-15-2021 Results Test Name Value Interpretation Reference Range Facility Reference Lab Notificationon 01-01-2024 Results Report See Ref Lab Report Normal [facility] Comment on above: Performed By: #### 2 [id number] #### [facility] [address] [place] [address] US Pelvis Non-OB Completeon 01-01-2024 US Pelvis Non-OB Complete Exam Date/Time: 12/29/2023 17:38 EDT Reason for Exam: N95.0 Report IMPRESSION: Uterine leiomyoma. Right ovary not visualized. CLINICAL HISTORY: N95.0 COMPARISONS: None available. TECHNICAL FACTORS: Transabdominal and transvaginal sonography with transvaginal imaging was obtained to better assess pelvic anatomy. FINDINGS: Uterus: Normal in size, and shape. 1.3 x 1.2 x 1.1 cm hypoechoic nodule posterior uterine body. Nabothian cysts identified. Endometrium: Normal in appearance. Right ovary: Not visualized. Left ovary: Normal in size, shape, and echogenicity. Color flow and Doppler without anomaly. Free fluid: None Adnexal masses: None The uterus measurements and an estimated volume are: Uterus Length: 8.0 cm Uterus Width: 3.4 cm Uterus Height: 2.7 cm Uterus Volume: 38.2 cm3 Endometrium Thickness: 0.3 cm Right ovary not visualized. The left ovary measurements and an estimated volume are: Left Ovary Length: 2.1 cm Left Ovary Width: 1.9 cm Left Ovary Height: 1.2 cm Left Ovary Volume: 2.6 cm3 Report Ordering Provider: Allen Noriega FINAL REPORT Dictated: 01/01/2024 2:10 pm Rodríguez Schultz MD Signed (Electronic Signature): 01/01/2024 2:10 pm Signed by: Rodríguez Schultz MD Transcribed by: OLIVIA Technologist: MELY Technical Comments Transabdominal Ultrasound Performed Transvaginal Ultrasound Performed Normal [facility] US Transvaginal Non-OBon US Transvaginal Non-OB Exam Date/Time: 12/29/2023 17:34 EDT Reason for Exam: N95.0 Report Review ultrasound pelvis non-OB complete for report of the US transvaginal non-OB. Ordering Provider: Allen Noriega FINAL REPORT Dictated: 01/01/2024 2:11 pm Rodríguez Schultz MD Signed (Electronic Signature): 01/01/2024 2:11 pm Signed by: Rodríguez Schultz MD Transcribed by: OLIVIA Technologist: MELY Normal [facility] TEST IN QUESTION - CYTOLOGYo n 12-29-2023 CONTAINER TYPE: TP Normal [facility] Comment on above: Order Comment: FASTI NG: UNKNOWN Performed By: #### 3 [id number] #### [facility] [address], [address] [place] [address] It Risk Advisor: Dmitri Maradiaga MD QUESTION/PROBLEM Normal [facility] Comment on above: Order Comment: FASTI NG: UNKNOWN Result Comment: PER CESILIA Salcedo AT CLIENT OFFICE, RUN TEST CODE 11515. Performed By: #### 3 [id number] #### [facility] [address], [address] [place] [address] It Risk Advisor: Dmitri Maradiaga MD Reference Lab Notificationon 12-28-2023 Ref Lab [facility] Normal [facility] Comment on above: Performed By: #### 2 [id number] #### [facility] [address] [place] [address] [facility] 09-29-2023 CNPN Telephone (EMGMN) ALYSSA LOPEZ ([id number]) 1965 F Date Time Provider Department 09/29/23 [...] DAILY MULTIVITAMIN ORAL Take by mouth. - De Lancey-3 Fatty Acids-Vitamin E (FISH OIL) 1,000 mg cap Take 1 capsule by mouth. - amitriptyline (ELAVIL) 10 mg tablet Take 10 mg by mouth daily at bedtime. - metoclopramide HCl (REGLAN) 5 mg tablet Take 5 mg by mouth daily at bedtime. Problem List As Of Date: 09/29/2023 (None) Encounter Status:Closed by NEEMA CAMPOS on 09/29/23 Normal [facility] EMG(NEURO/NI)on 09-29-2023 Results can be seen in attached scanned documents. If you are a patient reviewing this test result, call the doctor who ordered the test with any questions. [facility] CNPNon 08-28-2023 CNPN Telephone (EMGMN) ALYSSA LOPEZ ([id number]) 1965 F Date Time Provider Department 08/28/23 INES OCKER EMGMN During your visit today, we recorded [...] DAILY MULTIVITAMIN ORAL Take by mouth. - De Lancey-3 Fatty Acids-Vitamin E (FISH OIL) 1,000 mg cap Take 1 capsule by mouth. - amitriptyline (ELAVIL) 10 mg tablet Take 10 mg by mouth daily at bedtime. - metoclopramide HCl (REGLAN) 5 mg tablet Take 5 mg by mouth daily at bedtime. Problem List As Of Date: 08/28/2023 (None) Encounter Status:Closed by MANDY PRECIADO on 08/28/23 [facility] ALYSS[facility] LOPEZ ([id number]) 1965 F Date Time Provider Department 08/20/23 LUCIO MIXON During your visit today, we recorded the following information about you: Karly Leija 08/20/2023 9:18 AM Signed Name of Caller: Nayeli at [employer] Relationship to patient: Last visit in this department: 08/13/2023 Reason for Call: Other : Nayeli calling from Occupational Health to get office notes and any test results if applicable for the 08/13/23 visit. Please fax to [phone] Callback number: [phone] Fax Number (if necessary): [phone] Additional info if needed (Prior Auth #, [...] DAILY MULTIVITAMIN ORAL Take by mouth. - De Lancey-3 Fatty Acids-Vitamin E (FISH OIL) 1,000 mg cap Take 1 capsule by mouth. - amitriptyline (ELAVIL) 10 mg tablet Take 10 mg by mouth daily at bedtime. - metoclopramide HCl (REGLAN) 5 mg tablet Take 5 mg by mouth daily at bedtime. Problem List As Of Date: 08/20/2023 (None) Encounter Status:Closed by VALENTINA LINDSEY on 08/24/23 [facility] CNOVon 08-13-2023 CNOV Office Visit (OTMBHT) ALYSSA LOPEZ ([id number]) 1965 F Date Time Provider Department 08/13/23 9:20 AM LUCIO MIXON During your visit today, we recorded the following information about you: Lucio Mixon MD 09/08/2023 4:53 PM Signed Lucio Mixon MD Department of Orthopaedics Orthopaedic Surgery [facility] [address] [address] [facility] [address] Dept: [phone] Dept August 13, 2023 CHIEF COMPLAINT: New [...] her origional EMG test. SHe'll have her [facility] get an c9 for a [...] ONE DAILY MULTIVITAMIN ORAL Take by mouth. De Lancey-3 Fatty Acids-Vitamin E (FISH OIL) 1,000 mg [...] physician via US mail. Laine Granger CNP [address] [place], [place] [id number] Lucio Mixon MD Referring Provider: LAINE GRANGER [[id number]] Allergies As of Date: 08/13/2023 Noted Allergy Reaction BACTRIM (SULFAMETHOXAZOLE-TR IMETH*07/06/2014 2 - Rash PHENOBARBITAL 07/06/2014 16 - Unknown Date Reviewed: 08/13/2023 Reviewed by: Nargis Stiles MA - Fully Assessed Reason for Visit: New [030058] Pain [78] Primary Visit Diagnosis:Numbness and tingling in left hand [R20.0, R20.2] Prescriptions as of 09/08/2023 - ONE DAILY MULTIVITAMIN ORAL Take by mouth. - De Lancey-3 Fatty Acids-Vitamin E (FISH OIL) 1,000 mg cap Take 1 capsule by mouth. - amitriptyline (ELAVIL) 10 mg tablet Take 10 mg by mouth da (more content not included)... Normal [facility] XR WRIST 3V PA/LAT/OBL LTon 08-13-2023 XR [...] IMPRESSION: REMOTE POSTSURGICAL AND DEGENERATIVE CHANGES DESCRIBED Machine Tracer: KASSI Transcribe Date/Time: Aug 13 2023 10:48A Dictated by : SARITA WILEY MD This examination was interpreted and the report reviewed and electronically signed by: SARITA WILEY MD on Aug 13 2023 10:50AM EST [id number] Normal [facility] XR Wrist - left PA and Later al and Obliqueon 08-13-2023 IMPRESSION: REMOTE POSTSURGICAL AND DEGENERATIVE CHANGES DESCRIBED Machine Tracer: [facility] Transcribe Date/Time: Aug 13 2023 10:48A Dictated [...] soft tissue swelling. DIVISION OF RADIOLOGY Provider, [facility] [place] - 08/13/2023 * * *Final Report* * [...] IMPRESSION: REMOTE POSTSURGICAL AND DEGENERATIVE CHANGES DESCRIBED Machine Tracer: [facility] Transcribe Date/Time: Aug 13 2023 10:48A Dictated by : SARITA WILEY MD This examination was interpreted and the report reviewed and electronically signed by: SARITA WILEY MD on Aug 13 2023 10:50AM EST [facility] Radiology Study observation (narrative) [facility] XR Wrist - left PA and Later al and ObliqueOrdered By: Ccf Provider on 08-13-2023 [facility] ic Provider Letteron 04-23-2023 Provider Letter April 23, 2023 ALYSSA LOPEZ [address] [place] [address] : 1965 Dear Alyssa , We have [...] [facility] [address], [place] [address] [facility] Follow-Upon 04-22-2023 Follow-Up [id number] Alyssa Lopez 1965 Provider Department Center 04/22/2023 MAX MUSTAFA MP Family History Family history unknown: Yes Level of Service:46857 [place] OFFICE/OUTPT VISIT,PROCEDURE ONLY Reason for Visit and Comments: Follow-up [563068] - Constant tingling - thumb goes numb when driving or holding something for a bit and the numbness also goes into the middle finger as well. Pain [136] - Constant tingling - thumb goes numb when driving or holding something for a bit and the numbness also goes into the middle finger as well. [facility] Follow-Upon 02-10-2023 Follow-Up [id number] Alyssa Lopez 1965 Provider Department Center 02/10/2023 MAX MUSTAFA MP Family History Family history unknown: Yes Level of Service:73318 [place] OFFICE/OUTPATIENT ESTABLISHED LOW MDM 20-29 MIN Reason for Visit and Comments: Follow-up [821244] [facility] Follow-Upon 11-26-2022 Follow-Up [id number] Alyssa Lopez 1965 Provider Department Center 11/26/2022 MAX MUSTAFA MP Family History Family history unknown: Yes Level of Service:37276 [place] OFFICE/OUTPATIENT ESTABLISHED LOW MDM 20-29 MIN Reason for Visit and Comments: Pain [136] Follow-up [001309] [facility] Office Visiton 10-15-2022 Follow-up visit [id number] Alyssa Lopez 1965 Provider Department Center 10/15/2022 MAX MUSTAFA MP Family History Family history unknown: Yes Level of Service:29504 [place] POSTOP FOLLOW UP VISIT RELATED TO ORIGINAL PX (GC) Reason for Visit and Comments: Post-op [483] Follow-up [139619] [facility] 36on 10-02-2022 36 I spoke to the patient to see how she is doing after her recent surgery with Dr Kowalski. Ms Lopez stated she is doing well and that her pain is manageable with medications. She has a follow up with Dr Kowalski on October 15 at 120. She had no other questions or concerns. [facility] HPon 10-01-2022 HP History Of Present [...] Active Problems: Hyperlipidemia L C TR Normal [facility] OPNOTEon 10-01-2022 OPNOTE Operative Note Patient: Guillermina Lopez Date of Surgery: 10/01/2022 : 1965 Pre-operative Diagnosis: Carpal Tunnel Syndrome left Hand Post-operative Diagnosis: same Operation: Carpal Tunnel Release, left (48830) Surgeon: Max Kowalski MD Retail Associate Manager Bilingual: Drew Chacon MD Staff: Saw Operator: Mayte Chery RN Scrub Person: Cayetano [...] PACU Condition: stable Max Kowalski MD Normal [facility] POCT GLUCOSE METER UNSOLICIT ED RESULTSon 10-01-2022 Glucose [Mass/Vol] 91 mg/dL Normal 70-105 [facility] Comment on above: Order Comment: Waive d Testing in the ED is performed under the ED CLIA certificate #[id number]. Result Comment: epaw low Performed By: #### L [id number] ####[facility] ([facility])[address] [place] [address] [id number] 09-24-2022 [id number] NPO AFTER MIDNIGHT. MUST HAVE A ROOFING SALES REPRESENTATIVE TO TAKE YOU HOME AND SOMEONE TO STAY FOR 24 HOURS AFTER SURGERY. NO JEWELRY OR VALUABLES. HOLD THE MEDS WE SPOKE ABOUT: VITAMINS STARTING -24. TAKE THE MEDS WE SPOKE ABOUT WITH A SIP OF WATER DOS: PREVACID, ADIPEX. BRING INSURANCE CARD AND PHOTO ID AND MED LIST. Normal [facility] CITRATE URINE 24HRon 05-17-2 023 Citric Acid, U, 24hr 363 mg/24 hr Normal 320-1240 [facility] Comment on above: Result Comment: This test was developed and its performance characteristics determined by [facility]. It has not been cleared or approved by the Food and Drug Administration. Performed By: #### C ITRATU #### [facility] [address] [address] [address] Prabhu Lopez Citric Acid, Urine 338 mg/L Normal Undefined [facility] Comment on above: Performed By: #### C ITRATU #### [facility] [address] [address] [address] Prabhu Lopez OXALATE 24HR URINEon 023 Oxalates, Urine 15 mg/L Normal Undefined [facility] Comment on above: Performed By: #### O X24HR #### [facility] [address] [address] [address] Prabhu Lopez Oxalates, Urine 24hr 16 mg/24 hr Normal 4-31 [facility] Comment on above: Performed By: #### O X24HR #### [facility] [address] [address] [address] Prabhu Lopez MAGNESIUM 24HR URINEon 08-15 Magnesium 24hr Urine 94.6 mg/24 hr Normal 12.0-293.0 [facility] Comment on above: Performed By: #### U JESI, BMP #### [facility] [address] [address] [address] Prabhu Lopez Magnesium UR 8.8 mg/dL Normal Not Estab. [facility] Comment on above: Performed By: #### U JESI, BMP #### [facility] [id number] Prabhu Lopez PHOSPHORUS 24HR URINEon 08-04 Phosphorus, Urine 48.2 mg/dL Normal Not Estab. [facility] Comment on above: Performed By: #### P HOS 24 #### [facility] [address] [address] [address] Prabhu Lopez Phosphorus, Urine 24hr 518 mg/24 hr Normal 261-1078 [facility] Comment on above: Performed By: #### P HOS 24 #### [facility] [address] [place] [address] Dr. Prabhu Lopez URIC ACID 24 HR URINEon 08-04 Uric Acid, Urine 29.6 mg/dL Normal Not Estab. [facility] Comment on above: Performed By: #### U JESI, BMP #### [facility] [address] [place] [address] Dr. Prabhu Lopez Uric Acid, Urine 24hr 318.2 mg/24 hr Normal 173.7-902.1 [facility] Comment on above: Performed By: #### U JESI, BMP #### [facility] [address] [place] [address] Dr. Prabhu Lopez CALCIUM 24 HR URINEon 2022 CALC, 24 HR UR 76.3 mg/24 hr Critically low 100.0-300.0 [facility] Comment on above: Performed By: #### C [id number] #### [facility] [address] [place] [address] Dr. Prabhu Lopez UR CALCIUM 7.1 mg/dL Normal 5.1-21.0 [facility] Comment on above: Performed By: #### C ALC24U #### [facility] [address] [place] [address] Dr. Prabhu Lopez UR TOT VOL 1075 ml/24 HR Normal [facility] Comment on above: Performed By: #### C ALC24U #### [facility] [address] [place] [address] Dr. Prabhu Lopez Performed By: #### N A24U, [id number] #### [facility] [address] [place] [address] Dr. Prabhu Lopez CBC AUTO DIFFon 08-14-2022 BASO # 0.1 103/ul Normal 0.0-0.1 [facility] Comment on above: Performed By: #### U JESI, BMP #### [facility] [address] [place] [address] Dr. Prabhu Lopez Basophils/100 WBC (Bld) 1.3 % Normal 0.2-2.0 [facility] Comment on above: Performed By: #### U JESI, BMP #### [facility] [address] [place] [address] Dr. Prabhu Lopez EO # 0.3 103/ul Normal 0.0-0.7 [facility] Comment on above: Performed By: #### U JESI, BMP #### [facility] [address] [place] [address] Dr. Prabhu Lopez Eosinophils/100 WBC (Bld) 5.2 % Normal 0.9-7.0 [facility] Comment on above: Performed By: #### U JESI, BMP #### [facility] [address] [place] [address] Dr. Prabhu Lopez Erythrocyte distribution width (RBC) [Ratio] 12.9 % Normal 11.0-15.0 [facility] Comment on above: Performed By: #### U JESI, BMP #### [facility] [address] [place] [address] Dr. Prabhu Lopez Hematocrit (Bld) [Volume fraction] 42.7 % Normal 36.0-48.0 [facility] Comment on above: Performed By: #### U JESI, BMP #### [facility] [address] [place] [address] Dr. Prabhu Lopez Hemoglobin (Bld) [Mass/Vol] 13.4 g/dL Normal 12.0-16.0 [facility] Comment on above: Performed By: #### U JESI, BMP #### [facility] [address] [place] [address] Dr. Prabhu Lopez IG # 0.02 10e3/ul Normal 0.00-0.03 [facility] Comment on above: Performed By: #### U JESI, BMP #### [facility] [address] [place] [address] Dr. Prabhu Lopez IG % 0.4 % Normal 0.0-0.5 [facility] Comment on above: Performed By: #### U JESI, BMP #### [facility] [address] [place] [address] Dr. Prabhu Lopez LYMPH # 2.0 103/ul Normal 1.2-3.8 [facility] Comment on above: Performed By: #### U JESI, BMP #### [facility] [address] [place] [address] Dr. Prabhu Lopez Lymphocytes/100 WBC (Bld) 41.5 % Normal 20.5-60.0 [facility] Comment on above: Performed By: #### U JESI, BMP #### [facility] [address] [place] [address] Dr. Prabhu Lopez MANUAL DIFF REQ NO Normal [facility] Comment on above: Performed By: #### U JESI, BMP #### [facility] [address] [place] [address] Dr. Prabhu Lopez MCH (RBC) [Entitic mass] 28.7 pg Normal 26.7-34.0 [facility] Comment on above: Performed By: #### U JESI, BMP #### [facility] [address] [place] [address] Dr. Prabhu Lopez MCHC (RBC) [Mass/Vol] 31.4 g/dL Normal 29.9-35.2 [facility] Comment on above: Performed By: #### U JESI, BMP #### [facility] [address] [place] [address] Dr. rPabhu Lopez MCV (RBC) [Entitic vol] 91.4 fL Normal 81.0-99.0 [facility] Comment on above: Performed By: #### U JESI, BMP #### [facility] [address] [place] [address] Dr. Prabhu Lopez MONO # 0.4 103/ul Normal 0.3-0.8 [facility] Comment on above: Performed By: #### U JESI, BMP #### [facility] [address] [place] [address] Dr. Prabhu Lopez Monocytes/100 WBC (Bld) 8.3 % Normal 1.7-12.0 [facility] Comment on above: Performed By: #### U JESI, BMP #### [facility] [address] [place] [address] Dr. Prabhu Lopez NEUT # 2.1 103/ul Normal 1.4-6.5 [facility] Comment on above: Performed By: #### U JESI, BMP #### [facility] [address] [place] [address] Dr. Prabhu Lopez Neutrophils/100 WBC (Bld) 43.3 % Normal 43.0-75.0 [facility] Comment on above: Performed By: #### U JESI, BMP #### [facility] [address] [place] [address] Dr. Prabhu Lopez Platelet mean volume (Bld) [Entitic vol] 11.7 fL Normal 9.5-13.5 [facility] Comment on above: Performed By: #### U JESI, BMP #### [facility] [address] [place] [address] Dr. Prabhu Lopez PLT 237 103/ul Normal 150-450 [facility] Comment on above: Performed By: #### U JESI, BMP #### [facility] [address] [place] [address] Dr. Prabhu Lopez RBC 4.67 106/ul Normal 4.20-5.40 [facility] Comment on above: Performed By: #### U JESI, BMP #### [facility] [address] [place] [address] Dr. Prabhu Lopez WBC 4.8 103/ul Normal 4.0-11.0 [facility] Comment on above: Performed By: #### U JESI, BMP #### [facility] [address] [place] [address] Dr. Prabhu Lopez CREA 24 HR URINEon 3 CREA, 24 HR UR 875.48 mg/24 hr Normal 800.00-1,8 00. 00 [facility] Comment on above: Performed By: #### N A24U, [id number] #### [facility] [address] [place] [address] Dr. Prabhu Lopez URINE CREAT 81.44 mg/dL Normal 20.00-300.00 [facility] Comment on above: Performed By: #### N A24U, [id number] #### [facility] [address] [address] [address] Prabhu Lopez FREE THYROXINE INDEX T7on FTI 2.34 Normal 1.30-4.50 [facility] Comment on above: Performed By: #### U JESI, BMP #### [facility] [address] [address] [address] Prabhu Lopez T3U 33.0 % Normal 30.0-39.0 [facility] Comment on above: Performed By: #### U JESI, BMP #### [facility] [address] [address] [address] Prabhu Lopez T4 [Mass/Vol] 7.10 ug/dL Normal 4.80-13.90 [facility] Comment on above: Performed By: #### U JESI, BMP #### [facility] [address] [address] [address] Prabhu Lopez GLYCOHEMOGLOBIN A1Con 2022 ADA RECOMMENDATION SEE BELOW Normal [facility] Comment on above: Result Comment: ADA RECOMMENDED LIMIT 4.0 - 6.0 ADA THERAPEUTIC TARGET < 7.0 ACTION SUGGESTED > 7.0 Performed By: #### U JESI, BMP #### [facility] [address] [place] [address] Dr. Prabhu Lopez Glucose [Mass/Vol] 123 mg/dL Normal [facility] Comment on above: Performed By: #### U JESI, BMP #### [facility] [address] [address] [address] Prabhu Lopez HbA1c (Bld) [Mass fraction] 5.9 % Normal 4.5-6.2 [facility] Comment on above: Performed By: #### U JESI, BMP #### [facility] [address] [place] [address] Dr. Prabhu Lopez LIPID PROFILEon 08-14-2022 CHOL-HDL RATIO NORM SEE BELOW Normal [facility] Comment on above: Result Comment: 3.3 - 4.4 LOW RISK 4.4 - 7.1 AVERAGE RISK 7.1 - 11.0 MODERATE RISK >11.0 HIGH RISK Performed By: #### U JESI, BMP #### [facility] [address] [address] [address] Prabhu Lopez Cholesterol [Mass/Vol] 255 mg/dL Critically high <=200 [facility] Comment on above: Performed By: #### U JESI, BMP #### [facility] [address] [address] [address] Prabhu Lopez Cholesterol in HDL [Mass/Vol] 80 mg/dL Critically high 40-60 [facility] Comment on above: Performed By: #### U JESI, BMP #### [facility] [address] [address] [address] Prabhu Lopez Cholesterol in LDL [Mass/Vol] 156.6 mg/dL Normal [facility] Comment on above: Performed By: #### U JESI, BMP #### [facility] [address] [address] [address] Prabhu Lopez Cholesterol.total/Ch olesterol in HDL [Mass ratio] 3.2 {ratio} Normal [facility] Comment on above: Performed By: #### U JESI, BMP #### [facility] [address] [address] [address] Prabhu Lopez HDL NORMAL > or = 60 mg/dl - LOW CARDIOVASCULAR RISK <40 mg/dl - HIGH CARDIOVASCULAR RISK Normal [facility] Comment on above: Performed By: #### U JESI, BMP #### [facility] [address] [address] [address] Prabhu Lopez LDL CALC NORMAL SEE BELOW Normal [facility] Comment on above: Result Comment: <100 mg/dl OPTIMAL 100 - 129 mg/dl NEAR OR ABOVE OPTIMAL 130 - 159 mg/dl BORDERLINE HIGH 160 - 189 mg/dl HIGH >190 mg/dl VERY HIGH Performed By: #### U JESI, BMP #### [facility] [address] [address] [address] Prabhu Lopez Triglyceride [Mass/Vol] 92 mg/dL Normal <=150 [facility] Comment on above: Performed By: #### U JESI, BMP #### [facility] [address] [address] [address] Prabhu Lopez VLDL CALC 18.4 mg/dL Normal [facility] Comment on above: Performed By: #### U JESI, BMP #### [facility] [address] [place] [address] Dr. Prabhu Lopez PROF 14(COMP METB)on 023 Albumin [Mass/Vol] 3.9 g/dL Normal 3.4-5.0 [facility] Comment on above: Performed By: #### U JESI, BMP #### [facility] [address] [place] [address] Dr. Prabhu Lopez Albumin/Globulin [Mass ratio] 0.8 {ratio} Normal [facility] Comment on above: Performed By: #### U JESI, BMP #### [facility] [address] [place] [address] Dr. Prabhu Lopez ALP [Catalytic activity/Vol] 74 U/L Normal 46-116 [facility] Comment on above: Performed By: #### U JESI, BMP #### [facility] [address] [place] [address] Dr. Prabhu Lopez ALT [Catalytic activity/Vol] 29 U/L Normal 14-59 [facility] Comment on above: Performed By: #### U JESI, BMP #### [facility] [address] [place] [address] Dr. Prabhu Lopez Anion gap [Moles/Vol] 10.9 mmol/L Normal [facility] Comment on above: Performed By: #### U JESI, BMP #### [facility] [address] [place] [address] Dr. Prabhu Lopez AST [Catalytic activity/Vol] 22 U/L Normal 15-37 [facility] Comment on above: Performed By: #### U JESI, BMP #### [facility] [address] [place] [address] Dr. Prabhu Lopez Bilirubin [Mass/Vol] 0.7 mg/dL Normal 0.2-1.0 [facility] Comment on above: Performed By: #### U JESI, BMP #### [facility] [address] [place] [address] Dr. Prabhu Lopez Calcium [Mass/Vol] 8.9 mg/dL Normal 8.5-10.1 [facility] Comment on above: Performed By: #### U JESI, BMP #### [facility] [address] [address] [address] Prabhu Lopez Chloride [Moles/Vol] 106 mmol/L Normal 98-107 [facility] Comment on above: Performed By: #### U JESI, BMP #### [facility] [address] [address] [address] Prabhu Lopez CO2 [Moles/Vol] 30.1 mmol/L Normal 21.0-32.0 [facility] Comment on above: Performed By: #### U JESI, BMP #### [facility] [address] [place] [address] Dr. Prabhu Lopez Creatinine [Mass/Vol] 0.94 mg/dL Normal 0.55-1.02 [facility] Comment on above: Performed By: #### U JESI, BMP #### [facility] [address] [address] [address] Prabhu Lopez EGFR-AF GREENLANDIC >60 Normal >=60 [facility] Comment on above: Performed By: #### U JESI, BMP #### [facility] [address] [place] [address] Dr. Prabhu Lopez EGFR-NON AF GREENLANDIC >60 Normal >=60 [facility] Comment on above: Performed By: #### U JESI, BMP #### [facility] [address] [address] [address] Prabhu Lopez Globulin (S) [Mass/Vol] 4.8 g/dL Normal [facility] Comment on above: Performed By: #### U JESI, BMP #### [facility] [address] [address] [address] Prabhu Lopez Glucose [Mass/Vol] 96 mg/dL Normal 74-106 [facility] Comment on above: Performed By: #### U JESI, BMP #### [facility] [address] [place] [address] Dr. Prabhu Lpoez Potassium [Moles/Vol] 4.0 mmol/L Normal 3.5-5.1 [facility] Comment on above: Performed By: #### U JESI, BMP #### [facility] [address] [place] [address] Dr. Prabhu Lopez Protein [Mass/Vol] 8.7 g/dL Critically high 6.4-8.2 [facility] Comment on above: Performed By: #### U JESI, BMP #### [facility] [address] [address] [address] Prabhu Lopez Sodium [Moles/Vol] 143 mmol/L Normal 136-145 [facility] Comment on above: Performed By: #### U JESI, BMP #### [facility] [address] [place] [address] Dr. Prabhu Lopez Urea nitrogen [Mass/Vol] 13.0 mg/dL Normal 7.0-18.0 [facility] Comment on above: Performed By: #### U JESI, BMP #### [facility] [address] [place] [address] Dr. Prabhu Lopez Urea nitrogen/Creatinine [Mass ratio] 13.8 mg/mg Normal [facility] Comment on above: Performed By: #### U JESI, BMP #### [facility] [address] [place] [address] Dr. Prabhu Lopez PTH INTACTon 08-14-2022 PTH, Intact 17 pg/mL Normal 15-65 [facility] Comment on above: Performed By: #### U JESI, BMP #### [facility] [address] [place] [address] Dr. Prabhu Lopez SODIUM 24 HR URINEon 023 NA, 24 HR UR 111 mmol/24 hr Normal 40-220 [facility] Comment on above: Performed By: #### N A24U, [id number] #### [facility] [address] [place] [address] Dr. Prabhu Lopez Sodium (U) [Moles/Vol] 103 mmol/L Critically high 30-90 [facility] Comment on above: Performed By: #### N A24U, [id number] #### [facility] [address] [address] [address] Prabhu Lopez TSHon 08-14-2022 TSH 2.531 uIU/mL Normal 0.358-3.740 [facility] Comment on above: Performed By: #### U JESI, BMP #### [facility] [address] [place] [address] Dr. Prabhu Lopez PROF CHEM 8 (BAS METB)on Anion gap [Moles/Vol] 8.9 mmol/L Normal [facility] Comment on above: Performed By: #### U JESI, BMP #### [facility] [address] [address] [address] Prabhu Lopez Calcium [Mass/Vol] 9.3 mg/dL Normal 8.5-10.1 [facility] Comment on above: Performed By: #### U JESI, BMP #### [facility] [address] [place] [address] Dr. Prabhu Lopez Chloride [Moles/Vol] 108 mmol/L Critically high 98-107 [facility] Comment on above: Performed By: #### U JESI, BMP #### [facility] [address] [place] [address] Dr. Prabhu Lopez CO2 [Moles/Vol] 28.5 mmol/L Normal 21.0-32.0 [facility] Comment on above: Performed By: #### U JESI, BMP #### [facility] [address] [place] [address] Dr. Prabhu Lopez Creatinine [Mass/Vol] 1.08 mg/dL Critically high 0.55-1.02 [facility] Comment on above: Performed By: #### U JESI, BMP #### [facility] [address] [place] [address] Dr. Prabhu Lopez EGFR-AF GREENLANDIC >60 Normal >=60 [facility] Comment on above: Performed By: #### U JESI, BMP #### [facility] [address] [place] [address] Dr. Prabhu Lopez EGFR-NON AF GREENLANDIC 52 mL/min/1.73m2 Critically low >=60 [facility] Comment on above: Performed By: #### U JESI, BMP #### [facility] [address] [address] [address] Prabhu Lopez Glucose [Mass/Vol] 94 mg/dL Normal 74-106 [facility] Comment on above: Performed By: #### U JESI, BMP #### [facility] [address] [address] [address] Prabhu Lopez Potassium [Moles/Vol] 3.4 mmol/L Critically low 3.5-5.1 [facility] Comment on above: Performed By: #### U JESI, BMP #### [facility] [address] [place] [address] Dr. Prabhu Lopez Sodium [Moles/Vol] 142 mmol/L Normal 136-145 [facility] Comment on above: Performed By: #### U JESI, BMP #### [facility] [address] [address] [address] Prabhu Lopez Urea nitrogen [Mass/Vol] 17.0 mg/dL Normal 7.0-18.0 [facility] Comment on above: Performed By: #### U JESI, BMP #### [facility] [address] [place] [address] Dr. Prabhu Lopez Urea nitrogen/Creatinine [Mass ratio] 15.7 mg/mg Normal [facility] Comment on above: Performed By: #### U JESI, BMP #### [facility] [address] [place] [address] Dr. Prabhu Lopez URIC ACID SERUMon 08-12-2022 Urate [Mass/Vol] 4.8 mg/dL Normal 2.6-6.0 [facility] Comment on above: Performed By: #### U JESI, BMP #### [facility] [address] [place] [address] Dr. Prabhu Lopez 36on 08-04-2022 36 Surgery was approved. I called pt to schedule. Pt did not answer LMOV to return call. Normal [facility] Prep for Procedureon 023 Prep for Procedure [id number] Guillermina Lopez 1965 F Date Provider Department Center 08/04/2022 Herbert-PATRICIA HARTLEY MP ORTHO MPORTHO No family history on file Normal [facility] XR KUB 1 VIEWon 05-23-2022 XR [...] WIL KAYE Date: 2022-05-23 09:40 Normal [facility] Covid-19 PCR (CVDTB)on 11-04 SARS-CoV-2 (COVID-19) RNA TANGELA+probe Ql (Unsp spec) Not detected Normal NOT DETECTED [facility] Comment on above: Result Comment: When [...] for this test is supported by the [place] of Health and Human Service's declaration that [...] used). Performed By: #### C VDTB #### [facility] [address] [place] [address] Dr. Prabhu Lopez Covid-19 PCR (CVDTBH)on SARS-CoV-2 (COVID-19) RNA TANGELA+probe Ql (Unsp spec) Not detected Normal NOT DETECTED [facility] Comment on above: Result Comment: This test is not yet approved or cleared by the [place] FDA. When there are no FDA-approved or cleared tests available, and other criteria are met, FDA can make tests available under an emergency access mechanism called an Emergency Use Authorization (EUA). The EUA for this test is supported by the Waste Handling Technician of Health and Human Service's (HHS's) declaration [...] SARS-CoV-2. Performed By: #### C VDTBH #### [facility] [address] [place] [address] Dr. Prabhu Lopez B-Type Natriuretic Peptideon 02-12-2021 Natriuretic peptide B (Bld) [Mass/Vol] 36.0 pg/mL Normal 5-100 [facility] Comment on above: Result Comment: PERF ORMED BY: [place] [address] PATHOLOGIST [employer] NICANOR BALTAZAR M.D. Performed By: #### C BC, PTT, CKMB, BMP, CK, BNP, PT, HS TROP #### [address] Basic Metabolic Panelon Calcium [Mass/Vol] 8.9 mg/dL Normal 8.2-10.2 [facility] Comment on above: Performed By: #### C BC, PTT, CKMB, BMP, CK, BNP, PT, HS TROP #### [address] Chloride [Moles/Vol] 104 mmol/L Normal 95-114 [facility] Comment on above: Performed By: #### C BC, PTT, CKMB, BMP, CK, BNP, PT, HS TROP #### [facility] [address] CO2 [Moles/Vol] 24.0 mmol/L Normal 22.0-30.0 [facility] Comment on above: Performed By: #### C BC, PTT, CKMB, BMP, CK, BNP, PT, HS TROP #### [facility] [address] Creatinine [Mass/Vol] 1.06 mg/dL High 0.44-1.03 [facility] Comment on above: Performed By: #### C BC, PTT, CKMB, BMP, CK, BNP, PT, HS TROP #### [address] Creatinine Clr Calc Pharmacy 64.12 [facility] Comment on above: Result Comment: PERF ORMED BY: [place] [address] PATHOLOGIST [employer] NICANOR BALTAZAR M.D. Performed By: #### C BC, PTT, CKMB, BMP, CK, BNP, PT, HS TROP #### [address] Estimated GFR ( Najma > 60 [facility] Comment on above: Result Comment: GFR estimated reference range: According to KDOQI guidelines, <60 ml/min/1.73m2 is sufficient to diagnose a patient with chronic kidney disease. Performed By: #### C BC, PTT, CKMB, BMP, CK, BNP, PT, HS TROP #### [address] Estimated GFR (Non- Am 54 [facility] Comment on above: Performed By: #### C BC, PTT, CKMB, BMP, CK, BNP, PT, HS TROP #### [address] Glucose [Mass/Vol] 106 mg/dL High 70-100 [facility] Comment on above: Result Comment: [facility] Glucose Reference Range is dependent on time and content of last meal. Glucose of more than 200 mg/dL in a nonstressed, ambulatory subject supports the diagnosis of Diabetes Mellitus. ADA recommended reference range Performed By: #### C BC, PTT, CKMB, BMP, CK, BNP, PT, HS TROP #### [address] Potassium [Moles/Vol] 3.3 mmol/L Low 3.5-5.1 [facility] Comment on above: Performed By: #### C BC, PTT, CKMB, BMP, CK, BNP, PT, HS TROP #### [address] Sodium [Moles/Vol] 138 mmol/L Normal 136-146 [facility] Comment on above: Performed By: #### C BC, PTT, CKMB, BMP, CK, BNP, PT, HS TROP #### [address] Urea nitrogen [Mass/Vol] 11 mg/dL Normal 9-23 [facility] Comment on above: Performed By: #### C BC, PTT, CKMB, BMP, CK, BNP, PT, HS TROP #### [address] Complete Blood Count Auto Di ffon 02-12-2021 Basophils (Bld) [#/Vol] 0.1 10*3/uL Normal 0.0-0.2 [facility] Comment on above: Result Comment: PERF ORMED BY: [place] [address] PATHOLOGIST [employer] NICANOR BALTAZAR M.D. Performed By: #### C BC, PTT, CKMB, BMP, CK, BNP, PT, HS TROP #### [address] Basophils/100 WBC (Bld) 1.2 % Normal . [facility] Comment on above: Performed By: #### C BC, PTT, CKMB, BMP, CK, BNP, PT, HS TROP #### [address] Eosinophils (Bld) [#/Vol] 0.2 10*3/uL Normal 0.0-0.45 [facility] Comment on above: Performed By: #### C BC, PTT, CKMB, BMP, CK, BNP, PT, HS TROP #### [address] Eosinophils/100 WBC (Bld) 3.2 % Normal . [facility] Comment on above: Performed By: #### C BC, PTT, CKMB, BMP, CK, BNP, PT, HS TROP #### [address] Erythrocyte distribution width (RBC) [Ratio] 13.5 % Normal 11.9-15.3 [facility] Comment on above: Performed By: #### C BC, PTT, CKMB, BMP, CK, BNP, PT, HS TROP #### [address] Hematocrit (Bld) [Volume fraction] 36.8 % Normal 34.0-46.4 [facility] Comment on above: Performed By: #### C BC, PTT, CKMB, BMP, CK, BNP, PT, HS TROP #### [address] Hemoglobin (Bld) [Mass/Vol] 12.2 g/dL Normal 11.8-15.4 [facility] Comment on above: Performed By: #### C BC, PTT, CKMB, BMP, CK, BNP, PT, HS TROP #### [address] Lymphocytes (Bld) [#/Vol] 2.3 10*3/uL Normal 1.00-4.8 [facility] Comment on above: Performed By: #### C BC, PTT, CKMB, BMP, CK, BNP, PT, HS TROP #### [address] Lymphocytes/100 WBC (Bld) 37.1 % Normal . [facility] Comment on above: Performed By: #### C BC, PTT, CKMB, BMP, CK, BNP, PT, HS TROP #### [address] MCH (RBC) [Entitic mass] 29.5 pg Normal 24.7-34.3 [facility] Comment on above: Performed By: #### C BC, PTT, CKMB, BMP, CK, BNP, PT, HS TROP #### [facility] [address] MCV (RBC) [Entitic vol] 89.0 fL Normal 80-100 [facility] Comment on above: Performed By: #### C BC, PTT, CKMB, BMP, CK, BNP, PT, HS TROP #### [address] Mean Corpuscular HGB Conc 33.2 g/dL Normal 32.0-35.0 [facility] Comment on above: Performed By: #### C BC, PTT, CKMB, BMP, CK, BNP, PT, HS TROP #### [address] Monocytes (Bld) [#/Vol] 0.5 10*3/uL Normal 0.0-0.8 [facility] Comment on above: Performed By: #### C BC, PTT, CKMB, BMP, CK, BNP, PT, HS TROP #### [address] Monocytes/100 WBC (Bld) 8.7 % Normal . [facility] Comment on above: Performed By: #### C BC, PTT, CKMB, BMP, CK, BNP, PT, HS TROP #### [address] Neutrophils (Bld) [#/Vol] 3.1 10*3/uL Normal 1.8-7.7 [facility] Comment on above: Performed By: #### C BC, PTT, CKMB, BMP, CK, BNP, PT, HS TROP #### [facility] [address] Neutrophils/100 WBC (Bld) 49.8 % Normal . [facility] Comment on above: Performed By: #### C BC, PTT, CKMB, BMP, CK, BNP, PT, HS TROP #### [facility] [address] Nucleated RBC/100 WBC (Bld) [Ratio] 0.0 % Normal 0-0.5 [facility] Comment on above: Performed By: #### C BC, PTT, CKMB, BMP, CK, BNP, PT, HS TROP #### [facility] [address] Platelet mean volume (Bld) [Entitic vol] 9.7 fL Normal 6.3-10.7 [facility] Comment on above: Performed By: #### C BC, PTT, CKMB, BMP, CK, BNP, PT, HS TROP #### [address] Platelets (Bld) [#/Vol] 219 10*3/uL Normal 150-450 [facility] Comment on above: Performed By: #### C BC, PTT, CKMB, BMP, CK, BNP, PT, HS TROP #### [address] RBC (Bld) [#/Vol] 4.13 10*6/uL Normal 3.60-5.00 [facility] Comment on above: Performed By: #### C BC, PTT, CKMB, BMP, CK, BNP, PT, HS TROP #### [address] WBC (Bld) [#/Vol] 6.3 10*3/uL Normal 4.5-11.0 [facility] Comment on above: Performed By: #### C BC, PTT, CKMB, BMP, CK, BNP, PT, HS TROP #### [address] Creatine Kinaseon 02-12-2021 CK [Catalytic activity/Vol] 178 U/L Normal 22-269 [facility] Comment on above: Performed By: #### C BC, PTT, CKMB, BMP, CK, BNP, PT, HS TROP #### [facility] [address] Creatinine Kinase MBon 02-12 CK.MB [Mass/Vol] 2.5 ng/mL Normal 0.6-6.3 [facility] Comment on above: Performed By: #### C BC, PTT, CKMB, BMP, CK, BNP, PT, HS TROP #### [facility] [address] CKMB Relative Index 1.4 % Normal 0.00-2.50 [facility] Comment on above: Performed By: #### C BC, PTT, CKMB, BMP, CK, BNP, PT, HS TROP #### [address] Partial Thromboplastin Timeo n 02-12-2021 aPTT Coag (Bld) [Time] 29.3 s Normal 25.1-36.5 [facility] Comment on above: Result Comment: PERF ORMED BY: [place] [address] PATHOLOGIST [employer] NICANOR BALTAZAR M.D. Performed By: #### C BC, PTT, CKMB, BMP, CK, BNP, PT, HS TROP #### [address] Prothrombin Time INRon 02-12 INR Coag (PPP) [Relative time] 1.0 {INR} Normal [facility] Comment on above: Result Comment: INR Therapeutic [...] BMP, CK, BNP, PT, HS TROP #### [facility] [address] PT Coag (PPP) [Time] 11.5 s Normal 9.0-12.9 [facility] Comment on above: Performed By: #### C BC, PTT, CKMB, BMP, CK, BNP, PT, HS TROP #### [address] Troponin I High Sensitivityo n 02-12-2021 Troponin I High Sensitivity 5 pg/mL Normal 0-15 [facility] Comment on above: Result Comment: PERF ORMED BY: [place] [address] PATHOLOGIST [employer] N[employer]OR BALTAZAR M.D. Performed By: #### C BC, PTT, CKMB, BMP, CK, BNP, PT, HS TROP #### [address] XR chest 2V*on 02-12-2021 XR chest 2V* [facility] Main [place] [address] [place] [address] XRay Report Signed Patient: Alyssa Lopez MR#: [id number] : 1965 Acct:[id number] Age/Sex: 55 / F ADM Date: 02/11/21 Loc: ER Room: Type: [facility] ER Attending Dr: Ordering Provider: Stefan [...] Reid Graves M.D.02/12/2021 9:18 AM Dictation Location: [place] [address] Transcribed By: ZAINAB 02/12/21917 Dictated By: Reid Graves DO 02/12/21914 Signed By: 02/12/21917 [facility] ECG 12 lead ECGon 02-11-2021 ECG 12 lead ECG [facility] Main [place] [address] [place], [place] [id number] Electrocardiograph Report Signed Patient: Alyssa Lopez MR#: [id number] : 1965 Acct:[id number] Age/Sex: 55 / F ADM Date: 02/11/21 Loc: ER Room: Type: [facility] ER Attending Dr: Ordering Provider: Stefan [...] ECGs available Confirmed by Stefan Carolina DO ([id number]) on 02/11/2021 11:41:46 PM Referred By: Electronically Signed By:Stefan Carolina DO Transcribed By: MUS Signed By Stefan Carolina DO 02/11 2341 [facility] Vital Signs Date Time Vital Sign Value Performing Clinician Naomii steven 05-26-2022 08:49-0500 Blood Pressure Location Hoda SALMON [facility] 05-26-2022 08:49-0500 Diastolic blood pressure 74 mm[Hg] Hoda SALMON [facility] 05-26-2022 08:49-0500 Heart rate 70 /min Hoda SALMON [facility] 05-26-2022 08:49-0500 Respiratory rate 16 /min Hoda SALMON [facility] 05-26-2022 08:49-0500 Systolic blood pressure 128 mm[Hg] Hoda SALMON [facility] Encounters Encounter Date Encounter Type Care Provider Facility Start: 12-29-2023 End: 12-29-2023 ambulatory Allen Noriega Facility[place] Start: 12-29-2023 End: 12-29-2023 Patient encounter procedure Allen Pratt [facility] Start: 12-24-2023 End: 12-24-2023 ambulatory Allen Noriega Facility[place] Start: 12-24-2023 End: 12-24-2023 Lab Drop off Allen Pratt [facility] Start: 09-29-2023 Telephone encounter Ines Coker MD Work Phone: Neurology Comment on above: EMG- FAXED RESULTS Start: 09-29-2023 End: 09-29-2023 ambulatory INES COKER Neurology EMG [facility] Start: 09-29-2023 End: 09-29-2023 Patient encounter procedure Emg 2 Neur [facility] (Max Weight 400) Neurology EMG [facility] Start: 08-28-2023 Telephone encounter Ines Coker MD Work Phone: Neurology Comment on above: EMG Instructions Start: 08-25-2023 Orders Only Laine pimentel CNP Work Phone: Neurology Comment on above: Sprain of left wrist , sequela (Primary Dx); Carpal tunnel syndrome of left wrist Start: 08-20-2023 Telephone encounter Lucio prasad MD Work Phone: Orthopaedic [facility] Start: 08-13-2023 End: 08-13-2023 Patient encounter procedure Lucio Mixon MD Work Phone: Orthopaedic Surgery [facility] Comment on above: Numbness and tinglin g in left hand (Primary Dx) Start: 08-13-2023 End: 08-13-2023 ambulatory LAINE GRANGER Facility:[facility] Start: 08-13-2023 End: 08-13-2023 Subsequent hospital visit by physician [facility] Comment on above: Pain [R52] Start: 07-31-2023 Orders Only Lucio Mixon MD Work Phone: Referring Physician Comment on above: Pain (Primary Dx) Start: 07-06-2023 End: 07-06-2023 ambulatory Hoda SALMON Facility:[facility] Start: 07-06-2023 End: 07-06-2023 Patient encounter procedure Hoda SALMON [facility] Start: 06-30-2023 ambulatory [facility] Start: 04-22-2023 ambulatory [facility] Start: 02-10-2023 ambulatory [facility] Start: 11-26-2022 ambulatory [facility] Start: 10-15-2022 End: 10-15-2022 ambulatory [facility] Start: 10-01-2022 End: 10-01-2022 ambulatory [facility] Start: 08-15-2022 Encounter for genera l adult medical examination without abnormal findings DR SHAI LAU . [facility] Start: 08-14-2022 End: 08-15-[address] SHAI LAU . Facility:[facility] Start: 08-14-2022 End: 08-15-2022 Encounter for general adult medical examination without abnormal findings DR SHAI LAU . Facility:[facility] Start: 08-12-2022 End: 08-13-[address] HODA SALMON . Facility: Start: 05-26-2022 End: 05-26-2022 Patient encounter procedure Hoda SALMON [facility] Start: 05-22-2022 End: 05-23-[address] HODA SALMON . Facility:[facility] Start: 11-15-2021 End: 11-15-[address] SHAI LAU . Facility:[facility] Start: 11-12-2021 End: 11-12-[address] SHAI LAU . Facility:[facility] Start: 07-02-2021 End: 07-02-2021 Lab Drop off EMERITA PRINCE [facility] Start: 07-02-2021 End: 07-02-2021 Patient encounter procedure Toni Carrera Jr. [facility] [place] Procedures Date Procedure Procedure Detail Performing Clinician [...] Activity Detail Author Start: 12-06-2023 Covid-19 Vaccine ( season) Covid-19 Vaccine () [facility] Start: 12-06-2023 Influenza vaccination [facility] Start: 09-29-2023 End: 09-29-2023 ambulatory 09/29/2023 9:25 AM EDT Procedure Neurology [facility] [address] [place] [address] EMG STANDARD Neurology EMG [facility] Comment on above: EMG STANDARD Start: 08-13-2023 End: 08-13-2023 Patient encounter procedure Xray [facility] Comment on above: sprain of left wrist , alin is coming in for seccond opinion, had carple tunnel surgery on this wrist october 02, 2022 Start: 04-06-2023 Behavioral Health Screening Behavioral Health Screening [facility] Start: 12-05-2022 Covid-19 Vaccine () Covid-19 Vaccine () [facility] Start: 12-05-2022 Covid-19 Vaccine () Covid-19 Vaccine () [facility] Start: 06-09-2015 Shingrix Vaccine (1 of 2) Shingrix Vaccine (1 of 2) [facility] Start: 2010 Diabetes Screening Diabetes Screenin g [facility] Start: 2010 Lipid panel [facility] Start: 2010 Screening for malign ant neoplasm of colon [facility] Start: 2005 Screening for malign ant neoplasm of breast Mammogram Screening [facility] Start: 06-09-1995 Screening for malign ant neoplasm of cervix HPV Testing [facility] Start: 1986 Screening for malign ant neoplasm of cervix [facility] Start: 1984 Hepatitis B Vaccine (1 of 3 - 19+ 3-dose series) Hepatitis B Vaccine (1 of 3 - 19+ 3-dose series) [facility] Start: 1984 Urine microalbumin profile DTaP,Tdap,Td Vaccine (1 - Tdap) [facility] Start: 06-09-1983 Anxiety Screening Anxiety Screening [facility] Start: 06-09-1983 Depression Screening Depression Scre ening [facility] Start: 06-09-1983 Hepatitis C screening Hepatitis C Sc kailey [facility] Start: 06-09-1983 HIV screening HIV Screening [facility] End: 08-24-2024 EMG(NEURO/NI) EMG(NEURO/NI) EMG Routine Sprain of left wrist, sequela Carpal tunnel syndrome of left wrist 1 Occurrences starting 08/25/2023 until 08/24/2024 [facility] Work Phone: Comment on above: 1 Occurrences starti ng 08/25/2023 until 08/24/2024 End: 08-29-2024 XR Wrist - left 4 Views XR WRIST INJURY 4V PA/LAT/OBL/SCAPH LEFT Radiology Routine Pain 1 Occurrences starting 07/31/2023 until 08/29/2024 [facility] Comment on above: 1 Occurrences starti ng 07/31/2023 until 08/29/2024 End: 08-29-2024 XR Wrist - left PA and Lateral and Oblique XR WRIST GENERAL 3V PA/LAT/OBL LEFT Radiology Routine Pain 1 Occurrences starting 07/31/2023 until 08/29/2024 [facility] Work Phone: Comment on above: 1 Occurrences starti ng 07/31/2023 until 08/29/2024 Immunizations Immunization Date Immunization Notes Care Provider [facility]-26-2022 influenza virus vaccine, unspecified formulation Lucio Mixon MD Work Phone: [facility] 08-08-2020 SARS-CoV-2 (COVID-19 ) Ad26 vaccine, recombinant Toni Carrera Jr. [facility] 07-18-2020 SARS-CoV-2 (COVID-19 ) Ad26 vaccine, recombinant Toni Carrera Jr. [facility] Payers Date Payer Category Payer Private Health Insurance [facility] GEHA CHOICE PLUS [id number] 2023-Present [phone] [address] [address] [place] [address] PPO [id number] 2019 Unknown [facility] DEPT OF L ABOR FECA [id number] 2019-Present [phone] [address] [place] [address] WC [id number] 2019 Unknown [id number] 1965 Unknown [id number] .[id number] 1965 Unknown [id number] .[id number] 1965 Unknown [id number] [id number] .[id number] 1965 Unknown [id number] [id number] .[id number] 1965 Unknown [id number] [id number] .[id number] 1965 Unknown [id number] [id number] .[id number] 1965 Unknown [id number] [id number] .[id number] 1965 Unknown [id number] [id number] .[id number] 1965 Unknown [id number] .[id number] 1959 Unknown [id number] Social History Date Type Detail Facility Start: 07-06-2014 End: 05-13-2021 Tobacco smoking status Never smoked tobacco (finding) [facility] Start: 08-13-2023 Sex Assigned At Female [facility] Start: 07-28-2014 End: 08-13-2023 Alcohol intake Current drinker of alcohol (finding) [facility] Start: 1965 Sex Assigned At Not on file [facility] Start: 08-13-2023 History of Social function [facility] National Score (1-10 0), lower number is lower risk 46 [facility] Functional Status Date Assessment Result Facility 05-26-2022 Functional Status N/A [facility] Clinical Notes 05-26-2022 to 09-29-2023 Telephone Encounter - BethRichNeema - 09/29/2023 2:14 PM EDTTelephone Encounter - Neema Campos - 09/29/2023 2:14 PM Ramsey Lopez MD - 09/29/2023 9:05 AM EDTRadiology Note Date & Type Note Facility 09-29-2023 Telephone encounter Note Results from EMG performed on 09/29/2023 were faxed to Laine Granger at fax number on 09/29/2023. Fax confirmation received. [facility] 09-29-2023 Miscellaneous Notes Results from EMG performed on 09/29/2023 were faxed to Laine Granger at fax number on 09/29/2023. Fax confirmation received. documented in this encounter [facility] 09-29-2023 History of Presen t illness [...] MD Neuromuscular Medicine (NM) Staff [facility], [facility] Neurologic [place] documented in this encounter [facility] 09-29-2023 Note HNO ID: [id number] Author: RAMSEY NDIAYE MD Service: ? Author [...] MD Neuromuscular Medicine (NM) Staff Neuromuscular Center, [facility] Neurologic [facility] 08-28-2023 Telephone encounter Note Spoke with [...] testing. Patient expressed understanding with these instructions. [facility] 08-28-2023 Miscellaneous Notes Spoke with Alyssa [...] with these instructions. documented in this encounter [facility] 08-24-[address] Mixon's note still not completed, I did call Nayeli at occupational health. We did discuss that the patient needs to find their old nerve conduction study and get a new nerve conduction study (Study can be request by POR) and then should follow-up with Dr. Mixon to discuss both. [facility] Work Phone: 08-24-[address] [...] for the 08/13/23 visit. Please fax to [phone] Callback number: [phone] Fax Number (if necessary): [phone] Additional info if needed (Prior Auth #, Claim #, etc ): N/A Karly Leija documented in this encounter [facility] 08-20-2023 Telephone encounter Note Name of Caller: Nayeli at Occupational Health Relationship to patient: Last visit in this department: 08/13/2023 Reason for Call: Other : Nayeli calling from Occupational Health to get office notes and any test results if applicable for the 08/13/23 visit. Please fax to [phone] Callback number: [phone] Fax Number (if necessary): [phone] Additional info if needed (Prior Auth #, Claim #, etc ): N/A Karly Leija [facility] 08-13-2023 Note HNO ID: [id number] Author: LUCIO MIXON MD Service: ? Author Type: Physician Type: Progress Notes Filed: 09/08/2023 16:53 Note Text: Lucio Mixon MD Department of Orthopaedics Orthopaedic Surgery [facility] [address] [facility] [address] Dept: [phone] Dept August 13, 2023 CHIEF COMPLAINT: New [...] her origional EMG test. SHe'll have her [facility]OR get an c9 for a [...] ONE DAILY MULTIVITAMIN ORAL Take by mouth. De Lancey-3 Fatty Acids-Vitamin E (FISH OIL) 1,000 mg [...] US mail. Laine Granger CNP [address] [facility] [address] Lucio Mixon MD [facility] 08-13-2023 History of Presen t illness Narrative Lucio Mixon MD Department of Orthopaedics Orthopaedic Surgery [facility] [address] [address] [facility] [address] Dept: [phone] Dept August 13, 2023 CHIEF COMPLAINT: New [...] ONE DAILY MULTIVITAMIN ORAL Take by mouth. De Lancey-3 Fatty Acids-Vitamin E (FISH OIL) 1,000 mg [...] physician via US mail. Laine Granger CNP [address] [place] [address] Lucio Mixon MD documented in this encounter [facility] 08-13-2023 History of Presen t illness [...] PATIENT PRESENTS WITH AN IMPLANTABLE OR ATTACHED BRIDGE RIGGER: No RADIOLOGY DEPARTMENT: General X-ray: Exam(s) Completed: Upper Extremity X-Ray(s): Wrist, left PERIPHERAL IV DATA: Not applicable SIGNED BY: RT Brian(Gabriel) August 13, 2023 9:24 AM documented in this encounter [facility] 08-13-2023 Note HNO ID: [id number] Author: CONSTANCE VERMA RT(R) Service: ? Author [...] PATIENT PRESENTS WITH AN IMPLANTABLE OR ATTACHED BRIDGE RIGGER: No RADIOLOGY DEPARTMENT: General X-ray: Exam(s) Completed: Upper Extremity X-Ray(s): Wrist, left PERIPHERAL IV DATA: Not applicable SIGNED BY: RT Brian(Gabriel) August 13, 2023 9:24 AM [facility] 04-22-2023 Note Patient ID: Alyssa Lopez is [...] to verify the correct patient, procedure, equipment, intelligence support officer and site/side marked as required. [facility] 02-10-2023 Note Orthopedic Surgery Subjective 10/01/2022 [...] disease) Kidney stone Migraines Objective Left Hand: Fjsgtauwzu-[id number] scar from carpal tunnel incision. Thumb: normal A1 winnie and AROM, Index finger: normal A1 winnie and AROM, Long finger: normal A1 winnie and AROM, Ring finger: normal A1 winnie and AROM, and Small finger: normal A1 winnie and AROM Strength: bottling line operator 4+/5, thumb 4+/5, interossei 5/5 Sensation: intact [...] and see her back at that time. [facility] 11-26-2022 Note Attestation signed by Max [...] disease) Kidney stone Migraines Objective Left Hand: Wfpvxxurpj-iyix-sradxu scar from carpal tunnel incision. Thumb: normal A1 winnie and AROM, Index finger: normal A1 winnie and AROM, Long finger: normal A1 winnie and AROM, Ring finger: normal A1 winnie and AROM, and Small finger: normal A1 winnie and AROM Strength: bottling line operator 5/5, thumb 5/5, interossei 5/5 Sensation: intact [...] SHERIFF MD Orthopedic Surgery, PGY-2 Ortho Pager [phone] 11/26/22 3:14 PM [facility] 10-15-2022 Note Attestation signed by Max [...] SHERIFF MD Orthopedic Surgery, PGY-2 Ortho Pager [phone] 10/15/22 1:20 PM [facility] 10-01-2022 Note Patient: Guillermina curry Procedure Summary Date: 10/01/22 Room / Location: [facility] OR [address] [place] [address] OR Anesthesia Start: 833 Anesthesia Stop: 899 [...] per anesthesia protocol. No notable events documented. [facility] 10-01-2022 Note Patient: Guillermina ucrry Procedure Information Date/Time: 10/01/22 0830 Procedure: CARPAL TUNNEL RELEASE (Left: Hand) Location: [facility] OR [address] [place] [address] OR Surgeons: Max Kowalski MD Relevant Problems [...] Plan discussed with attending. Additional Equipment Requests [facility] 05-26-2022 Hospital Discharg e instructions Follow Up Care 05/26/2022 09:33:22 With:JEFFREY AVELAR, Hoda Rios, URL Address: [facility] [address] [place] [address] [phone] When: Unknown [facility] 05-26-2022 [facility] Discharg e instructions Patient Education 05/26/2022 [...] include: ?Spinach. ?Rhubarb. ?Beets. ?Potato chips and kuwaiti fries. ?Nuts. If you regularly take a diuretic medicine, make sure to eat at least 1 2 fruits or vegetables high in potassium each day. These include: ?Avocado. ?Banana. ?[place], prune, carrot, or tomato juice. ?Baked potato. [...] Casseroles. Pizza. Lasagna. Frozen meals. Potato chips. Wallisian fries. Summary You can reduce your risk [...] 07/18/2011 Document Revised: 07/13/2019 Document Reviewed: 03/03/2017 [employer] Patient Education 2020 [employer] Follow Up Care 05/13/2021 09:33:00 With:Hoda SALMON MD, URL Address: [facility] [address], [place] [address]- When: Unknown [facility] Evaluation + Plan note Future Appointments Appointment Date:05/26/2022 08:45:00 AM Scheduled Provider:Hoda SALMON MD Location:[facility] Appointment Type:URO Office Visit [facility] Evaluation + Plan note Future Appointments Appointment Date:05/26/2022 08:45:00 AM Scheduled Provider:Hoda SALMON MD Location:[facility] Appointment Type:URO Office Visit Diagnostic Tests PendingUrine Culture 07/02/21 [facility] Evaluation + Plan note Future Appointments Appointment Date:05/29/2023 08:00:00 AM Scheduled Provider:Hoda SALMON MD Location:[facility] Appointment Type:URO Office Visit [facility] Evaluation + Plan note Future Appointments Appointment Date:12/30/2023 12:00:00 PM Scheduled Provider: Location:.[facility] Appointment Type:US Abdominal/Pelvis (FT) Diagnostic Tests PendingReference Lab Notification 12/24/23 Future Scheduled TestsUS Pelvis Non-OB Complete 12/30/23US Transvaginal Non-OB 12/30/23 [facility] Evaluation note Diagnosis Pain- Primary Generalized pain [facility] Diagnosis Sprain of left wrist, sequela- Primary Carpal tunnel syndrome of left wrist Carpal tunnel syndrome [facility] Diagnosis Numbness and tingling in left hand- Primary Disturbance of skin sensation [facility]* Diagnosis Sprain of left wrist, sequela Carpal tunnel syndrome of left wrist Carpal tunnel syndrome [facility] Diagnosis Pain Generalized pain [facility] Narrative No data available for this section [facility] Hospital Discharge instructions No data available for this section [facility] progress note No data available for this section [facility] reason for referral (narrative)* Diagnostic Procedure Only (Routine) - Pending Review Specialty Diagnoses / Procedures Referred By Contac t Referred To Contact XR IMAGING Diagnoses Pain Procedures XR WRIST INJURY 4V PA/LAT/OBL/SCAPH LEFT RADEX WRIST COMPLETE MINIMUM 3 VIEWS Lucio Mixon MD [address] [place] [address] Xr Imaging [facility] Referral ID Status Reason Start Date Expiration Date Visits Requested Visits Authorized [id number] Pending Review Auto-Generat ed Referral 07/31/2023 08/29/2024 1 1 * Diagnostic Procedure Only (Routine) - Authorized Specialty Diagnoses / Procedures Referred By Contac t Referred To Contact XR IMAGING Diagnoses Pain Procedures XR WRIST GENERAL 3V PA/LAT/OBL LEFT RADEX WRIST COMPLETE MINIMUM 3 VIEWS Lucio Mixon MD [address] [place] [address] [place] [address] Referral ID Status Reason Start Date Expiration Date Visits Requested Visits Authorized [id number] Authorized Auto-Generat ed Referral 07/31/2023 08/29/2024 1 1 [facility] for referral (narrative)* Outpatient Procedure (Routine) - Pending Review Specialty Diagnoses / Procedures Referred By Contac t Referred To Contact [facility] Diagnoses Sprain of left wrist, sequela Carpal tunnel syndrome of left wrist Procedures EMG(NEURO/NI) NERVE CONDUCTION STUDIES 9-10 STUDIES Ines Coker MD [address] [place] [address] [address] [place] [address] Referral ID Status Reason Start Date Expiration Date Visits Requested Visits Authorized [id number] Pending Review Auto-Generat ed Referral 08/25/2023 08/24/2024 1 1 [facility] Summary Purpose Family History No Family History Records FoundNo Family History Records FoundNo Family History Records Found No data available for this section No Family History Records Found No data available for this section No data available for this section No Family History Records FoundNo Family History Records FoundNo Family History Records Found Advance Directives No Advanced Directives Records FoundNo Advanced Directives Records FoundNo Advanced Directives Records FoundNo Advanced Directives Records FoundNo Advanced Directives Records FoundNo Advanced Directives Records FoundNo Advanced Directives Records Found Reason for Referral Specialty Diagnoses / Procedures Referred By Contcorey t Referred To Contact XR IMAGING Diagnoses Pain Procedures XR WRIST GENERAL 3V PA/LAT/OBL LEFT RADEX WRIST COMPLETE MINIMUM 3 VIEWS Lucio Mixon MD [address] [place] [address] Xr Imaging [facility]95 Referral ID Status Reason Start Date Expiration Date V isits Requested Visits Authorized [id number] Closed Auto-Generat ed Referral Patient Cleared - Admin/Chairm an/Director advise to proceed or did not respond 08/13/2023 08/13/2023 1 1 Additional Source Comments INFORMATION SOURCE (unrecogn ized section and content) DATE CREATED AUTHOR 05/29/2021 [facility] DATE CREATED AUTHOR AUTHOR'S ORGANIZ ATION 08/21/2022 [facility] [place] [facility] DATE CREATED AUTHOR AUTHOR'S ORGANIZ ATION 07/01/[address] [facility] DATE CREATED AUTHOR AUTHOR'S ORGANIZ ATION 09/30/2023 [facility] DATE CREATED AUTHOR AUTHOR'S ORGANIZ ATION 12/31/2023 [facility] DATE CREATED AUTHOR AUTHOR'S ORGANIZ ATION 01/02/2024 [facility] DATE CREATED AUTHOR AUTHOR'S ORGANIZ ATION 01/05/2024 [facility] Patient Care team informatio n (unrecognized section and content) Client Operations Manager Relationship Specialty Start Date End Date Laine Granger CNP [address] [place] [address] Family Medicine 07/24/23 Client Operations Manager Relationship Specialty Start Date End Date Laine Granger CNP [address] [place] [address] Referring Family Medicine 07/24/23 Client Operations Manager Relationship Specialty Start Date End Date Laine Granger CNP [address] [place] [facility] [address] Referring Family Medicine 07/24/23 Client Operations Manager Relationship Specialty Start Date End Date Laine Granger CNP [address] [place] [facility] [address] Referring Family Medicine 07/24/23 Client Operations Manager Relationship Specialty Start Date End Date Laine Granger CNP [address] [place] [facility] [address] Referring Family Medicine 07/24/23 Client Operations Manager Relationship Specialty Start Date End Date Laine Granger CNP [address] [place] [facility] [address] Referring Family Medicine 07/24/23 Source Comments (unrecognize d section and content) In the event this informatio n is protected by the Federal Confidentiality of Alcohol and Drug Abuse Patient Records regulations: The Federal rules restrict any use of the information to criminally investigate or prosecute any alcohol or drug abuse patient.[facility] the event this information is protected by the Federal Confidentiality of Alcohol and Drug Abuse Patient Records regulations: The Federal rules restrict any use of the information to criminally investigate or prosecute any alcohol or drug abuse patient.[facility] the event this information is protected by the Federal Confidentiality of Alcohol and Drug Abuse Patient Records regulations: The Federal rules restrict any use of the information to criminally investigate or prosecute any alcohol or drug abuse patient.[facility] the event this information is protected by the Federal Confidentiality of Alcohol and Drug Abuse Patient Records regulations: The Federal rules restrict any use of the information to criminally investigate or prosecute any alcohol or drug abuse patient.[facility] the event this information is protected by the Federal Confidentiality of Alcohol and Drug Abuse Patient Records regulations: The Federal rules restrict any use of the information to criminally investigate or prosecute any alcohol or drug abuse patient.[facility] the event this information is protected by the Federal Confidentiality of Alcohol and Drug Abuse Patient Records regulations: The Federal rules restrict any use of the information to criminally investigate or prosecute any alcohol or drug abuse patient.[facility] Hospital[facility] the event this information is protected by the Federal Confidentiality of Alcohol and Drug Abuse Patient Records regulations: The Federal rules restrict any use of the information to criminally investigate or prosecute any alcohol or drug abuse patient.[facility] Hospital[facility] the event this information is protected by the Federal Confidentiality of Alcohol and Drug Abuse Patient Records regulations: The Federal rules restrict any use of the information to criminally investigate or prosecute any alcohol or drug abuse patient.[facility] Reason for Visit (unrecogniz ed section and content) Reason Comments EMG Instructions Reason Comments New Pain Specialty Diagnoses / Procedures Referred By Contac t Referred To Contact Orthopedics / ORTHOPAEDIC SURGERY Diagnoses sprain of left wrist, alin is coming in for seccond opinion, had carple tunnel surgery on this wrist october 02, 2022 Procedures [facility] Laine Granger, [employer] [address] [place] [address] Lucio Mixon MD [address] [place] [address] Referral ID Status Reason Start Date Expiration Date V isits Requested Visits Authorized [id number] Closed Patient Cleared - Admin/Chairm an/Director advise to proceed or did not respond 08/13/2023 08/13/2023 1 1 Specialty Diagnoses / Procedures Referred By Charlesac t Referred To [facility] Diagnoses Sprain of left wrist, sequela Carpal tunnel syndrome of left wrist Procedures EMG(NEURO/NI) NERVE CONDUCTION STUDIES 9-10 STUDIES Ines Coker MD [address] [id number] [facility] [address] [place] [address] Referral ID Status Reason Start Date Expiration Date V isits Requested Visits Authorized [id number] Closed Auto-Generate d Referral 09/29/2023 10/29/2023 1 1 Reason Comments EMG- FAXED RESULTS Reason Comments Radio Gen RMP Specialty Diagnoses / Procedures [facility] XR [facility]AG[facility] Diagnoses Pain Procedures XR WRIST GENERAL 3V PA/LAT/OBL LEFT RADEX WRIST COMPLETE MINIMUM 3 VIEWS Lucio Mixon MD [address] [place] [address] [place] [id number] Referral ID Status Reason Start Date Expiration Date V isits Requested Visits Authorized [id number] Closed Auto-Generat ed Referral Patient Cleared - [...] BE BASED ON THE PRIMARY CLINICAL RECORDS. [facility] [employer] [facility]. provides no warranty or guarantee of the accuracy or completeness of information in this document.
--- NOTE | 2024-01-12 13:12 | P.DS_ITS ---
Discharge Plan Discharge Disposition: Home, Self-Care Outpatient Diagnostics: VC Endovenous Ablation 1VeinLT (Routine) Timeframe: 2 Weeks Facility: [facility] - Location: Vein Center Ordered By: Evan Carlin Follow Up Appointments: 01/20/24 Plan of Treatment: EVLT of left leg GSV Print Language: New Zealander Discharge Date/Time: 01/12/24 15:16
== END 2024-01-12 15:16 | disposition home or self-care (01) ==
PROVIDERS: PCP Radiology Diagnostic Radiology; Visit Provider Radiology Diagnostic Radiology
DX: I80.01 Phlebitis and thrombophlebitis of superficial vessels of right lower extremity (principal)
CPT/HCPCS: 93971; G0463

== ENCOUNTER 2024-02-10 07:50 | Outpatient (OUT) | payer OTHER, SELFPAY ==
--- NOTE | 2024-02-05 09:18 | V.VEINS.HP ---
Vital Signs 02/10/24 08:08 BP 118/76 BP Location Left Brachial BP Position Sitting BP Cuff Size Adult BP Source Manual Cuff Respiration 16 Pulse 79 Pulse Source Monitor Pulse Oximetry (%) 97 Oxygen Delivery Method Room Air Varicose Veins Patient in today for EVLT of left GSV Carlos Cristobal MD personally performed the services described in this documentation, as scribed by Stefan Hood RN in my presence and it is both accurate and complete. IStefan RN, am scribing for, and in the presence of, Dr. Carlos Conde and in the presence of the patient. thigh: bilateral (left > right leg), knee: bilateral, calf: bilateral, ankle: bilateral and funez: bilateral aching, cramping and tender 37 years Worsened in recent months: Yes standing and walking elevating extremities, compression stockings and exercise Reports muscle spasms of leg, fatigue, heaviness, restless legs, edema and leg edema History of lower extremity trauma: No Superficial thrombophlebitis: Yes (DVT to left leg) Family history of varicose veins: yes Has patient had previous lower extremity venous surgery: No Patient has previously received the following treatment(s) for lower extremity varicose veins: Reports none Does patient have a history of : yes Does patient intend to have future pregnancies: no Has patient had lower extremity venous scan with relux testing: No Support hose used: Yes Problems walking or doing physical activity: Yes How does it affect you: often has to rest and elevate legs/feet while and effects work Do you walk much: Yes Do you stand much: Yes Review of Systems ROS Narrative Carlos Cristobal MD personally performed the services described in this documentation, as scribed by Stefan Hood RN in my presence and it is both accurate and complete. Stefan Cristobal RN, am scribing for, and in the presence of, Dr. Carlos Conde and in the presence of the patient. 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 ?I80.01 - Phlebitis and thrombophlebitis of superficial vessels of right lower extremity (ICD-10) Phlebitis and thrombophlebitis of superficial vessels of left lower extremity ?I80.02 - Phlebitis and thrombophlebitis of superficial vessels of left lower extremity (ICD-10) Varicose veins of bilateral lower extremities with pain ?I83.813 - Varicose veins of bilateral lower extremities with pain (ICD-10) Plantar fascial fibromatosis ?M72.2 - Plantar fascial fibromatosis (ICD-10) Contracture, left ankle ?M24.572 - Contracture, left ankle (ICD-10) Vertigo ?R42 - Dizziness and giddiness (ICD-10) Chronic cystitis ?N30.20 - Other chronic cystitis without hematuria (ICD-10) Chronic kidney disease ?N18.9 - Chronic kidney disease, unspecified (ICD-10) Urinary tract infection ?N39.0 - Urinary tract infection, site not specified (ICD-10) COVID-19 (04/16/23) ?U07.1 - COVID-19 (ICD-10) Migraine ?G43.909 - Migraine, unspecified, not intractable, without status migrainosus (ICD-10) S/P extracorporeal shock wave therapy ?Z98.890 - Other specified postprocedural states (ICD-10) Kidney stones ?N20.0 - Calculus of kidney (ICD-10) Seasonal allergies ?J30.2 - Other seasonal allergic rhinitis (ICD-10) GERD (gastroesophageal reflux disease) ?K21.9 - Gastro-esophageal reflux disease without esophagitis (ICD-10) Surgical History (Updated 02/10/24 @ 08:25 by Stefan Hood) Status post laser ablation of incompetent vein ?Z98.890 - Other specified postprocedural states (ICD-10) Status post laser ablation of incompetent vein ?Z98.890 - Other specified postprocedural states (ICD-10) Status post laser ablation of incompetent vein ?Z98.890 - Other specified postprocedural states (ICD-10) History of endometrial ablation ?Z98.890 - Other specified postprocedural states (ICD-10) History of spinal surgery ?Z98.890 - Other specified postprocedural states (ICD-10) History of tonsillectomy ?Z90.89 - Acquired absence of other organs (ICD-10) H/O hand surgery ?Z98.890 - Other specified postprocedural states (ICD-10) History of foot surgery ?Z98.890 - Other specified postprocedural states (ICD-10) History of carpal tunnel release ?Z98.890 - Other specified postprocedural states (ICD-10) Family History (Updated 11/12/23 @ 10:49 by Stefan Hood) Other Family history of diabetes mellitus Family history of hypertension Family history of myocardial infarction Pain due to varicose veins of both lower extremities Social History Within the past year, how often did you have a drink containing alcohol: 2-4 times a month Smoking status: Never smoker Non-prescribed substance use: denies use 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 Highest level of school completed/degree received: high school graduate Meds Home Medications and Allergies Home Medications ?Medication ?Instructions ?Recorded ?Confirmed ?Type cetirizine 10 mg tablet (Zyrtec) 10 mg PO DAILY PRN allergy symptoms 05/19/23 11/12/23 History lansoprazole 30 mg capsule,delayed 30 mg PO DAILY 05/19/23 11/12/23 History release multivitamin (Daily Multi-Vitamin 1 tab PO DAILY 05/19/23 11/12/23 History tablet) ondansetron 4 mg disintegrating 4 mg PO Q8H PRN nausea and 06/04/23 11/12/23 Rx tablet vomiting 5 days #15 tabs tizanidine 2 mg tablet 2 mg PO TID PRN muscle spasticity 06/04/23 11/12/23 Rx 7 days #21 tabs Allergies Allergy/AdvReac Type Severity Reaction Status Date / Time levofloxacin (From Levaquin) Allergy Muscle Pain Verified 06/29/23 14:18 phenobarbital Allergy Unknown Verified 06/29/23 14:18 Sulfa (Sulfonamide Allergy Rash Verified 06/29/23 14:18 Antibiotics) Exam Narrative Exam Narrative: ICarlos MD personally performed the services described in this documentation, as scribed by Stefan Hood RN in my presence and it is both accurate and complete. IStefan RN, am scribing for, and in the presence of, Dr. Carlos Conde and in the presence of the patient. Constitutional Documenting provider has reviewed patient's vital signs: yes Common normals: oriented x3 Nutritional appearance: overweight Cardio Peripheral pulses: dorsalis pedis pulses present Extremity Common normals: normal capillary refill General: edema Right lower extremity: lower leg Right lower leg: inspection and palpation Left lower extremity: lower leg Left lower leg: inspection and palpation Neuro Common normals: oriented x3 Assessment and Plan Assessment and Plan (1) Varicose veins of bilateral lower extremities with pain: Plan f/u evaluation with physician along with left leg limited u/s I, Carlos Conde MD personally performed the services described in this documentation, as scribed by Stefan Hood RN in my presence and it is both accurate and complete. IStefan RN, am scribing for, and in the presence of, Dr. Carlos Conde and in the presence of the patient. Procedures Procedure Instructions Procedures Plan of care: Risks and benefits of the procedure were discussed at length and informed written consent was obtained.? Time-out completed for verification of correct patient, procedure and site.? Staff present during time-out: Stefan Hood RN,? Carlos Conde MD, Nel James [facility]. Time Out Time___827____ Patient prepped and procedure performed in usual sterile fashion. Risk of injury related to use of Diode laser and/or laser devices? __CR___ ? Serial number of laser used :? [id number] Control panel self test performed, electrical cords in good condition, floor is dry, basin of water available, fire extinguisher in close proximity_CR__ Polycarbonate goggles available and Laser warning signs outside of doors___CR__ Eye protection provided to patient and staff in room_CR___ Use of laser retardant drapes and dull blackened instruments as directed__CR___ Use of nonflammable prep solutions and use of saline soaked sponges to protect tissues as indicated _CR___ Length ___14 cm Laser operated by __Dr. Conde Physician verbal confirmation laser locked in place__CR__ Laser start time (date and time) _02/10/2024@__0840 Laser stop time(date and time) __02/10/2024@__0842 Guillen _8.0___ Average laser use __659 Joules Average laser use___82 seconds Pulse continuous ___CR_? Pulse intermittent ___ Amount of Tumescent used __100cc____ Evaluated patient for signs and symptoms of electrical injury __CR___ ? Skin clear at insertion site __CR___ Patient tolerated procedure well.? Left leg Coban dressing applied to access site.? Applied Left thigh high leg compression stocking. Will return on 02/17/2024 for Left leg limited venous ultrasound and exam. I, Carlos Conde MD personally performed the services described in this documentation, as scribed by Stefan Hood RN in my presence and it is both accurate and complete. I, Stefan Hood RN, am scribing for, and in the presence of, Dr. Carlos Conde and in the presence of the patient.
--- NOTE | 2024-02-05 09:21 | P.DS_ITS ---
Discharge Plan Discharge Disposition: Home, Self-Care Outpatient Diagnostics: VC Facility EST LMTD (Routine) Timeframe: 2 Weeks Facility: [facility] - Location: Vein Center Ordered By: Carlos Conde VC EXT Venous LT Limited (Routine) Timeframe: 2 Weeks Facility: [facility] - Location: Vein Center Ordered By: Carlos Conde Follow Up Appointments: 02/17/2024 Plan of Treatment: f/u evaluation with physician along with left leg limited u/s Patient Instructions: Endovenous Ablation (DC) Print Language: Thai Discharge Date/Time: 02/10/24 08:31
[2024-02-10] MEDS: LIDOCAINE HCL 1% 100 MG/10 ML MDV INJ (08:02)
[2024-02-10] MEDS: 0.9 % SODIUM CHLORIDE 500 ML, LIDOCAINE HCL 20 ML, SODIUM BICARBONATE 10 MEQ INJ (08:03)
--- NOTE | 2024-02-10 08:04 | VEIN_ITS ---
[address] [address] Patient Name: KASSANDRA LOPEZ MRN: [id number] date: 1965 Sex: F Assigned Patient Location: Current Patient Location: Accession/Order Number: [id number] Exam Date: 02/10/2024 08:05 Report Date: 02/10/2024 08:52 At the request of: WIL KAYE Procedure: VC Endovenous Ablation 1VeinLT EXAMINATION: VC Endovenous Ablation 1Vein, left great saphenous vein HISTORY: I83.813 - Varicose veins of bilateral lower extremities w... COMPARISON: No relevant comparison available. TECHNIQUE: The risks and benefits of the procedure had been previously discussed, and were rediscussed at length. Informed written consent was obtained. Nel James and Stefan Hood assisted. Time out procedure was performed. The left lower extremity was prepared and draped in the usual sterile fashion to allow knee flexion in the sterile field. Duplex ultrasound probe was draped in a sterile cover, sterile transmission gel was used. Venous mapping was performed with the areas of dilation and large tributaries marked. The total length was 14 cm from the entry mid thigh to 3 cm below the saphenofemoral junction. The vein beneath this area splint with extrafascial, not amenable to ablation. The diameter of the greater saphenous vein ranged from 5-7 mm. A 30 gauge needle and 1% buffered lidocaine was used to anesthetize the entry site. A 4 mm incision was made with a scalpel and the saphenous vein was entered percutaneously under direct ultrasound guidance with a micropuncture set, a single stick was successful in gaining access. A micro-guide wire was inserted and the needle removed. A micro-set including a dilator was inserted over the microwire and the needle and dilator were removed. A 0.018 guide wire was inserted through the micro-set and threaded through the saphenous vein to the saphenofemoral junction. The dilator was removed and an introducer sheath was inserted over the wire until the end of the sheath entered the saphenofemoral junction. The dilator and wire were removed and the 600 micron fiber was introduced and placed and positioned so that it extended beyond the sheath and was 3 cm peripheral to the saphenofemoral femoral junction. Final position of the fiber was determined by ultrasound guidance and duplex imaging. Tumescent anesthetic was delivered by ultrasound guidance. 100 cc of fluid was delivered along the entire course of the saphenous vein. The solution consisted of 1000 cc of normal saline with 40 mL of 1% lidocaine and 20 mL of sodium bicarbonate. A final positioning check was made. The energy source was turned on by means of the foot pedal and the fiber and sheath were withdrawn. The total number of Joules delivered was 659. The laser was active for 82 seconds under continuous pulse, average laser use of 8 J. Laser start time 8:40 AM 02/10/2024 . Laser stop time 8:42 AM 02/10/2024 . A duplex ultrasound revealed compressibility and flow at the saphenofemoral junction immediately after the procedure. Hemostasis at the access site was achieved. The skin incision of the saphenous vein was closed with a 4 x 4. A compression stocking was applied. Postop instructions were given. A follow up appointment was recommended and scheduled. The patient tolerated the procedure well and was discharged in good condition . VEIN/VC Endovenous Ablation 1VeinLT IMPRESSION: Technically successful endovenous laser ablation of the left great saphenous vein Electronically authenticated by: CONSTANCE HERNANDEZ Date: 02/10/2024 08:52
[2024-02-10 08:08] VITALS: BP 118/76; PULSE 79; O2SAT 97
--- OUTSIDE RECORDS SUMMARY | 2024-02-10 08:17 | XMS_ITS | CCD ---
Author Organization [facility] Care Team Providers Care 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 Name Role Phone Shai Lau Primary Care [...] KOWALSKI Attending Unavailable SKIE, MAX Attending Unavailable SKIMAX Navas Admitting Unavailable SKIMAX Navas Attending Unavailable SKIE, MAX Attending Unavailable SKIE, MAX Attending Unavailable SKIE, MAX Attending Unavailable Lawrence Granger CNPistina Unavailable [phone] Lawrence Granger CNPistina Unavailable Hoda SALMON Attending Unavailable Allen Noriega Admitting Unavailable Allen Noriega Attending Unavailable Allen Noriega Referring Unavailable Allen Noriega Admitting Unavailable Allen Noriega Attending Unavailable LUCOI MIXON Referring Unavailable LUCIO MIXON Attending Unavailable INES COKER Referring Unavailable LAINE GRANGER Referring Unavailable LUCIO MIXON Attending Unavailable LUCIO MIXON Referring Unavailable Allergies Allergy Classification Reported Allergen(s) Allergy Type Date of Onset Reaction(s) Facility (8 sources) levoFLOXacin; Translations: [levofloxacin] Drug Allergy 02-22-20 16 .. [facility] (18 sources) PHENobarbital; Translations: [phenobarbital] Drug Allergy 07-07-19 15 Unknown [facility] (7 sources) Sulfonamides (Antibiotic); Translations: [sulfa drugs] Drug allergy [facility] (1 source) benzoin resin Drug Allergy 08-21-19 16 [facility] (1 source) levoFLOXacin Drug Allergy 08-21-19 16 [facility] (1 source) Sulfonamides (Antibiotic) Drug allergy (disorder) 08-21-19 16 [facility] (11 sources) Sulfamethoxazole / Trimethoprim; Translations: [SULFAMETHOXAZOLE-TR IMETHOPRIM] Drug Allergy 07-07-19 15 Rash [facility] (1 source) Sulfonamides (Antibiotic); Translations: [SULFA (SULFONAMIDE ANTIBIOTICS)] Propensity to adverse reactions to drug (disorder) 12-20-19 15 [facility] Medications Current Medications Medication Drug Class(es) Dates Sig (Normalized) Sig (Original) Airborne Gummies (6 sources) Start: 04-16-2020 Airborne Gummies Chewed, Daily Start Date: 04/16/20 Status: Ordered amitriptyline hydrochloride 10 mg oral tablet (9 sources) Tricyclic Antidepressant take 1 tablet by [...] day(s), # 14 cap(s), Refills(s) 0, Pharmacy: [facility]/pharmacy #[id number], 161, cm, 05/13/21 9:04:00 EST, Height/Length Dosing, 91.5, kg, 05/13/21 9:04:00 EST, Weight Dosing Start Date: 07/02/21 Stop Date: 07/09/21 Status: Ordered fluconazole 150 mg oral tablet (2 sources) Azole Antifungal Start: 07-02-2021 End: 07-09-2021 Diflucan 150 mg Tab See Instructions, 1 tab po q72 hrs x 3 doses, then dc, # 3 tab(s), Refills(s) 0, Pharmacy: [facility]/pharmacy #[id number], 161, cm, 05/13/21 9:04:00 EST, Height/Length Dosing, 91.5, kg, 05/13/21 9:04:00 EST, Weight Dosing Start Date: 07/02/21 Stop Date: 07/09/21 Status: Ordered Prevacid (6 sources) Proton Pump Inhibitor Start: 09-19-2019 Prevacid Oral, Daily, Refills(s) 0 Start Date: 09/19/19 Status: Ordered metoclopramide 5 mg oral tablet (9 sources) Dopamine-2 Receptor Antagonist take 1 tablet by mouth once daily at bedtime metoclopramide HCl (REGLAN) 5 mg tablet Take 5 mg by mouth daily at bedtime. Active Multivitamin, Therapeutic w/ Minerals (6 sources) Start: 01-11-2016 take 1 tablet by mouth once daily Multivitamin, Therapeutic w/ Minerals 1 tab(s), Oral, Daily, Refill(s) 0, Prophylaxis Start Date: 01/11/16 Status: Ordered Rodessa-3 Fatty Acids-Vitamin E (FISH OIL) 1,000 mg cap (9 sources) Rodessa-3 Fatty Acids-Vitamin E (FISH OIL) 1,000 mg cap Take 1 capsule by mouth. Active Rodessa-3 Fatty Ac ids-Vitamin E (FISH OIL) 1,000 mg cap Take 1 capsule by mouth. 0 Active ONE DAILY MULTIVITAMIN ORAL (9 sources) ONE DAILY MULTIV ITAMIN ORAL Take [...] fatigue; Translations: [OTHER FATIGUE] Onset: 3 Episodic Osteoarthritis (1 source) Osteoarthrosis of the carpometacarpal joint of the thumb; Translations: [Unilateral primary osteoarthritis of first carpometacarpal joint, left hand] 02-09-2024 Chronic Other nervous system disorders (3 sources) Carpal [...] Pain; Translations: [Pain, unspecified] Onset: 3 Episodic Unclassified (3 sources) CONTACT [...] Documented Da te Episodic/Chronic Residual codes; unclassified (1 source) Pain, unspecified; Translations: [Pain] Onset: 08-13-2023 Episodic Sprains and strains (3 sources) Sprain of left wrist; Translations: [Unspecified sprain of left wrist, sequela] Onset: 09-29-2023 08-25-2023 Episodic Unclassified (1 source) CONTACT W/AND (SUSP) EXPOS COVID-19; Translations: [CONTACT W/AND (SUSP) EXPOS COVID-19] Onset: 11-15-2021 Results Test Name Value Interpretation Reference Range Facility Reference Lab Notificationon 01-01-2024 Results Report See Ref Lab Report Normal [facility] Comment on above: Performed By: #### 2 [id number] #### [facility] [address] [place] [address] US Pelvis Non-OB Completeon 01-01-2024 US Pelvis [...] Rodríguez Schultz MD Transcribed by: OLIVIA Technologist: LAWRENCE Technical Comments Transabdominal Ultrasound Performed Transvaginal Ultrasound Performed Normal [facility] US Transvaginal Non-OBon US Transvaginal Non-OB Exam Date/Time: 12/29/2023 17:34 EDT Reason for Exam: N95.0 Report Review ultrasound pelvis non-OB complete for report of the US transvaginal non-OB. Ordering Provider: Allen Noriega FINAL REPORT Dictated: 01/01/2024 2:11 pm Rodríguez Schultz MD Signed (Electronic Signature): 01/01/2024 2:11 pm Signed by: Rodríguez Schultz MD Transcribed by: OLIVIA Technologist: LAWRENCE Normal [facility] TEST IN QUESTION - CYTOLOGYo n 12-29-2023 CONTAINER TYPE: TP Normal [facility] Comment on above: Order Comment: FASTI NG: UNKNOWN Performed By: #### 3 [id number] #### [facility] [address], [address] [place] [address] Interior Design Coordinator: Dmitri Maradiaga MD QUESTION/PROBLEM Normal [facility] Comment on above: Order Comment: FASTI NG: UNKNOWN Result Comment: PER CESILIA Salcedo AT CLIENT OFFICE, RUN TEST CODE [id number]. Performed By: #### 3 [id number] #### [facility] [address], [address] [place] [address] Interior Design Coordinator: Dmitri Maradiaga MD Reference Lab Notificationon 12-28-2023 Ref [facility] Normal [facility] Comment on above: Performed By: #### 2 [id number] #### [facility] [address] [place] [address] [facility] ALY[facility]OPE[facility] ([id number]) 1965 F Date Time Provider Department 09/29/23 [...] DAILY MULTIVITAMIN ORAL Take by mouth. - Rodessa-3 Fatty Acids-Vitamin E (FISH OIL) 1,000 mg cap Take 1 capsule by mouth. - amitriptyline (ELAVIL) 10 mg tablet Take 10 mg by mouth daily at bedtime. - metoclopramide HCl (REGLAN) 5 mg tablet Take 5 mg by mouth daily at bedtime. Problem List As Of Date: 09/29/2023 (None) Encounter Status:Closed by NEEMA CAMPOS on 09/29/23 Normal [facility] EMG(NEURO/NI)on 09-29-2023 Results can be seen in attached scanned documents. If you are a patient reviewing this test result, call the doctor who ordered the test with any questions. [facility] CNPValerie 08-28-2023 CNPN Telephone (EMGMN) ALYSSA LOPEZ ([id number]) 1965 F Date Time Provider Department 08/28/23 [...] DAILY MULTIVITAMIN ORAL Take by mouth. - Rodessa-3 Fatty Acids-Vitamin E (FISH OIL) 1,000 mg cap Take 1 capsule by mouth. - amitriptyline (ELAVIL) 10 mg tablet Take 10 mg by mouth daily at bedtime. - metoclopramide HCl (REGLAN) 5 mg tablet Take 5 mg by mouth daily at bedtime. Problem List As Of Date: 08/28/2023 (None) Encounter Status:Closed by MANDY PRECIADO on 08/28/23 [facility] 08-20-2023 [facility] Telephone (OTMBHT) ALYSSA LOPEZ ([id number]) 1965 F Date Time Provider Department 08/20/23 LUCIO MIXON During your visit today, we recorded the following information about you: Karly Leija 08/20/2023 9:18 AM Signed Name of Caller: Nayeli at [employer] Relationship to patient: Last visit in this department: 08/13/2023 Reason for Call: Other : Nayeli calling from [employer] to get office notes and any test results if applicable for the 08/13/23 visit. Please fax to [phone] Callback number: [phone] Fax Number (if necessary): [phone] Additional info if needed (Prior Auth #, Claim #, etc?): N/A Valentina Bella PA-C 08/24/2023 9:[address] Mixon's note still not completed, I did call Nayeli at [employer]. We did discuss that the patient needs [...] DAILY MULTIVITAMIN ORAL Take by mouth. - Rodessa-3 Fatty Acids-Vitamin E (FISH OIL) 1,000 mg cap Take 1 capsule by mouth. - amitriptyline (ELAVIL) 10 mg tablet Take 10 mg by mouth daily at bedtime. - metoclopramide HCl (REGLAN) 5 mg tablet Take 5 mg by mouth daily at bedtime. Problem List As Of Date: 08/20/2023 (None) Encounter Status:Closed by VALENTINA LINDSEY on 08/24/23 [facility] CNOVon 08-13-2023 CNOV Office Visit (OTMBHT) ALYSSA LOPEZ ([id number]) 1965 F Date Time Provider Department 08/13/23 9:20 AM LUCIO MIXON During your visit today, we recorded the following information about you: Lucio Mixon MD 09/08/2023 4:53 PM Signed Lucio Mixon MD Department of Orthopaedics Orth[facility] [address] [facility] [address] Dept: [phone] Dept August 13, 2023 CHIEF COMPLAINT: New [...] her origional EMG test. SHe'll have her [facility] get an c9 for a new [...] ONE DAILY MULTIVITAMIN ORAL Take by mouth. Rodessa-3 Fatty Acids-Vitamin E (FISH OIL) 1,000 mg [...] physician via US mail. Laine Granger CNP [address] [place] [id number] Lucio Mixon MD Referring Provider: LAINE GRANGER [[id number]] Allergies As of Date: 08/13/2023 Noted Allergy Reaction BACTRIM (SULFAMETHOXAZOLE-TR IMETH*07/06/2014 2 - Rash PHENOBARBITAL 07/06/2014 16 - Unknown Date Reviewed: 08/13/2023 Reviewed by: Nargis Stiles MA - Fully Assessed Reason for Visit: New [916895] Pain [78] Primary Visit Diagnosis:Numbness and tingling in left hand [R20.0, R20.2] Prescriptions as of 09/08/2023 - ONE DAILY MULTIVITAMIN ORAL Take by mouth. - Rodessa-3 Fatty Acids-Vitamin E (FISH OIL) 1,000 mg cap Take 1 capsule by mouth. - amitriptyline (ELAVIL) 10 mg tablet Take 10 mg by mouth da (more content not included)... Normal [facility] XR WRIST 3V PA/LAT/OBL LTon 08-13-2023 XR [...] IMPRESSION: REMOTE POSTSURGICAL AND DEGENERATIVE CHANGES DESCRIBED Hearse Driver: KASSI Transcribe Date/Time: Aug 13 2023 10:48A Dictated by : SARITA WILEY MD This examination was interpreted and the report reviewed and electronically signed by: SARITA WILEY MD on Aug 13 2023 10:50AM EST [id number] Normal [facility] XR Wrist - left PA and Later al and Obliqueon 08-13-2023 IMPRESSION: REMOTE POSTSURGICAL AND DEGENERATIVE CHANGES DESCRIBED Hearse Driver: KASSI Transcribe Date/Time: Aug 13 2023 10:48A [...] swelling. DIVISION OF RADIOLOGY Provider, [facility] [place] - 08/13/2023 * * *Final Report* * [...] IMPRESSION: REMOTE POSTSURGICAL AND DEGENERATIVE CHANGES DESCRIBED [facility] Trans[facility] Date/Time: Aug 13 2023 10:48A Dictated by : SARITA WILEY MD This examination was interpreted and the report reviewed and electronically signed by: SARITA WILEY MD on Aug 13 2023 10:50AM EST [facility] Radiology Study observation (narrative) [facility] XR Wrist - left PA and Later al and ObliqueOrdered By: Ccf Provider on 08-13-2023 [facility] ic Provider Letteron 04-23-2023 Provider Letter April 23, 2023 ALYSSA LOPEZ [address] [place] [address] : 1965 Dear Alyssa , We have [...] [facility] [address], [place] [address] [facility] Follow-Upon 04-22-2023 Follow-Up [id number] Alyssa Lopez 1965 Date Provider Department Center 04/22/2023 MAX MUSTAFA MP Family History Family history unknown: Yes Level of Service:81076 [place] OFFICE/OUTPT VISIT,PROCEDURE ONLY Reason for Visit and Comments: Follow-up [940899] - Constant tingling - thumb goes numb when driving or holding something for a bit and the numbness also goes into the middle finger as well. Pain [136] - Constant tingling - thumb goes numb when driving or holding something for a bit and the numbness also goes into the middle finger as well. [facility] Follow-Upon 02-10-2023 Follow-Up [id number] Alyssa Lopez 1965 Provider Department Center 02/10/2023 MAX MUSTAFA MP Family History Family history unknown: Yes Level of Service:66485 [place] OFFICE/OUTPATIENT ESTABLISHED LOW MDM 20-29 MIN Reason for Visit and Comments: Follow-up [603489] [facility] Follow-Upon 11-26-2022 Follow-Up [id number] Alyssa Lopez 1965 Provider Department Center 11/26/2022 MAX MUSTAFA MP Family History Family history unknown: Yes Level of Service:40800 [place] OFFICE/OUTPATIENT ESTABLISHED LOW MDM 20-29 MIN Reason for Visit and Comments: Pain [136] Follow-up [999608] [facility] Office Visiton 10-15-2022 Follow-up visit [id number] Whitney 1965 F Date Provider Department Center 10/15/2022 MAX MUSTAFA [facility] Family History Family history unknown: Yes Level of Service:20134 [place] POSTOP FOLLOW UP VISIT RELATED TO ORIGINAL PX (GC) Reason for Visit and Comments: Post-op [483] Follow-up [320691] [facility] 36on 10-02-2022 36 I spoke to the patient to see how she is doing after her recent surgery with Dr Kowalski. Ms Lopez stated she is doing well and that her pain is manageable with medications. She has a follow up with Dr Kowalski on October 15 at 120. She had no other questions or concerns. [facility] HPon 10-01-2022 HP History Of [...] Hyperlipidemia L C TR Normal [facility] OPNOTEon 10-01-2022 OPNOTE Operative Note Patient: Guillermina Lopez Date of Surgery: 10/01/2022 : 1965 Pre-operative Diagnosis: Carpal Tunnel Syndrome left Hand Post-operative Diagnosis: same Operation: Carpal Tunnel Release, left (88009) Surgeon: Max Kowalski MD Maintenance Analyst: Drew Chacon MD Staff: Professional Fee Coder: Mayte Chery RN Scrub Person: Cayetano Ace [...] stable Max Kowalski MD Normal [facility] POCT GLUCOSE METER UNSOLICIT ED RESULTSon 10-01-2022 Glucose [Mass/Vol] 91 mg/dL Normal 70-105 [facility] Comment on above: Order Comment: Waive d Testing in the ED is performed under the ED CLIA certificate #[id number]. Result Comment: epaw low Performed By: #### L [id number] ####[facility] (BEAKER)[address] [place] [address] [id number] 09-24-2022 [id number] NPO AFTER MIDNIGHT. MUST HAVE A RELAY WORKER TO TAKE YOU HOME AND SOMEONE TO STAY FOR 24 HOURS AFTER SURGERY. NO JEWELRY OR VALUABLES. HOLD THE MEDS WE SPOKE ABOUT: VITAMINS STARTING 09-27. TAKE THE MEDS WE SPOKE ABOUT WITH A SIP OF WATER DOS: PREVACID, ADIPEX. BRING INSURANCE CARD AND PHOTO ID AND MED LIST. Normal [facility] CITRATE URINE 24HRon 023 Citric Acid, U, 24hr 363 mg/24 hr Normal 320-1240 [facility] Comment on above: Result Comment: This test was developed and its performance characteristics determined by [facility]. It has not been cleared or approved by the Food and Drug Administration. Performed By: #### C ITRATU #### [facility] [address] [address] [address] Prabhu Lopez Citric Acid, Urine 338 mg/L Normal Undefined [facility] Comment on above: Performed By: #### C ITRATU #### [facility] [address] [address] [address] Prabhu Lopez OXALATE 24HR URINEon 023 Oxalates, Urine 15 mg/L Normal Undefined [facility] Comment on above: Performed By: #### O X24HR #### [facility] [address] [address] [address] Prabhu Lopez Oxalates, Urine 24hr 16 mg/24 hr Normal 4-31 [facility] Comment on above: Performed By: #### O X24HR #### [facility] [address] [address] [address] Prabhu Lopez MAGNESIUM 24HR URINEon 08-15 Magnesium 24hr Urine 94.6 mg/24 hr Normal 12.0-293.0 [facility] Comment on above: Performed By: #### U JESI, BMP #### [facility] [address] [address] [address] Prabhu Lopez Magnesium UR 8.8 mg/dL Normal Not Estab. [facility] Comment on above: Performed By: #### U JESI, BMP #### [facility] [address] [address] [address] Prabhu Lopez PHOSPHORUS 24HR URINEon 08-04 Phosphorus, Urine 48.2 mg/dL Normal Not Estab. [facility] Comment on above: Performed By: #### P HOS 24 #### [facility] [address] [place] [address] Dr. Prabhu Lopez Phosphorus, Urine 24hr 518 mg/24 hr Normal 261-1078 [facility] Comment on above: Performed By: #### P HOS 24 #### [facility] [address] [place] [address] Dr. Prabhu Lopez URIC ACID 24 HR URINEon 08-04 Uric Acid, Urine 29.6 mg/dL Normal Not Estab. [facility] Comment on above: Performed By: #### U JESI, BMP #### [facility] [address] [place] [address] Dr. Prabhu Lopez Uric Acid, Urine 24hr 318.2 mg/24 hr Normal 173.7-902.1 [facility] Comment on above: Performed By: #### U JESI, BMP #### [facility] [address] [place] [address] Dr. Prabhu Lopze CALCIUM 24 HR URINEon 2022 CALC, 24 HR UR 76.3 mg/24 hr Critically low 100.0-300.0 [facility] Comment on above: Performed By: #### C ALC24U #### [facility] [address] [place] [address] Dr. Prabhu Lopez UR CALCIUM 7.1 mg/dL Normal 5.1-21.0 [facility] Comment on above: Performed By: #### C ALC24U #### [facility] [address] [place] [address] Dr. Prabhu Lopez UR TOT VOL 1075 ml/24 HR Normal [facility] Comment on above: Performed By: #### C ALC24U #### [facility] [address] [place] [address] Dr. Prabhu Lopez Performed By: #### N A24U, [id number] #### [facility] [address] [place] [address] Dr. Prabhu Lopez CBC AUTO DIFFon 08-14-2022 BASO # 0.1 103/ul Normal 0.0-0.1 [facility] Comment on above: Performed By: #### U JESI, BMP #### [facility] [address] [place] [address] Dr. Prabhu Lopez Basophils/100 WBC (Bld) 1.3 % Normal 0.2-2.0 [facility] Comment on above: Performed By: #### U JESI, BMP #### [facility] [address] [place] [address] Dr. Prabhu Lopez EO # 0.3 103/ul Normal 0.0-0.7 [facility] Comment on above: Performed By: #### U JESI, BMP #### [facility] [address] [place] [address] Dr. Prabhu Lopez Eosinophils/100 WBC (Bld) 5.2 % Normal 0.9-7.0 [facility] Comment on above: Performed By: #### U JESI, BMP #### [facility] [address] [place] [address] Dr. Prabhu Lopez Erythrocyte distribution width (RBC) [Ratio] 12.9 % Normal 11.0-15.0 [facility] Comment on above: Performed By: #### U JESI, BMP #### [facility] [address] [place] [address] Dr. Prabhu Lopez Hematocrit (Bld) [Volume fraction] 42.7 % Normal 36.0-48.0 [facility] Comment on above: Performed By: #### U JESI, BMP #### [facility] [address] [place] [address] Dr. Prabhu Lopez Hemoglobin (Bld) [Mass/Vol] 13.4 g/dL Normal 12.0-16.0 [facility] Comment on above: Performed By: #### U JESI, BMP #### [facility] [address] [place] [address] Dr. Prabhu Lopez IG # 0.02 10e3/ul Normal 0.00-0.03 [facility] Comment on above: Performed By: #### U JESI, BMP #### [facility] [address] [address] [address] Prabhu Lopez IG % 0.4 % Normal 0.0-0.5 [facility] Comment on above: Performed By: #### U JESI, BMP #### [facility] [address] [address] [address] Prabhu Lopez LYMPH # 2.0 103/ul Normal 1.2-3.8 [facility] Comment on above: Performed By: #### U JESI, BMP #### [facility] [address] [address] [address] Prabhu Lopez Lymphocytes/100 WBC (Bld) 41.5 % Normal 20.5-60.0 [facility] Comment on above: Performed By: #### U JESI, BMP #### [facility] [address] [place] [address] Dr. Prahbu Lopez MANUAL DIFF REQ NO Normal [facility] Comment on above: Performed By: #### U JESI, BMP #### [facility] [address] [place] [address] Dr. Prabhu Lopez MCH (RBC) [Entitic mass] 28.7 pg Normal 26.7-34.0 [facility] Comment on above: Performed By: #### U JESI, BMP #### [facility] [address] [place] [address] Dr. Prabhu Lopez MCHC (RBC) [Mass/Vol] 31.4 g/dL Normal 29.9-35.2 [facility] Comment on above: Performed By: #### U JESI, BMP #### [facility] [address] [place] [address] Dr. Prabhu Lopez MCV (RBC) [Entitic vol] 91.4 fL Normal 81.0-99.0 [facility] Comment on above: Performed By: #### U JESI, BMP #### [facility] [address] [place] [address] Dr. Prabhu Lopez MONO # 0.4 103/ul Normal 0.3-0.8 [facility] Comment on above: Performed By: #### U JESI, BMP #### [facility] [address] [place] [address] Dr. Prabhu Lopez Monocytes/100 WBC (Bld) 8.3 % Normal 1.7-12.0 [facility] Comment on above: Performed By: #### U JESI, BMP #### [facility] [address] [place] [address] Dr. Prabhu Lopez NEUT # 2.1 103/ul Normal 1.4-6.5 [facility] Comment on above: Performed By: #### U JESI, BMP #### [facility] [address] [place] [address] Dr. Prabhu Lopez Neutrophils/100 WBC (Bld) 43.3 % Normal 43.0-75.0 [facility] Comment on above: Performed By: #### U JESI, BMP #### [facility] [address] [place] [address] Dr. Prabhu Lopez Platelet mean volume (Bld) [Entitic vol] 11.7 fL Normal 9.5-13.5 [facility] Comment on above: Performed By: #### U JESI, BMP #### [facility] [address] [place] [address] Dr. Prabhu Lopez PLT 237 103/ul Normal 150-450 [facility] Comment on above: Performed By: #### U JESI, BMP #### [facility] [address] [place] [address] Dr. Prabhu Lopez RBC 4.67 106/ul Normal 4.20-5.40 [facility] Comment on above: Performed By: #### U JESI, BMP #### [facility] [address] [place] [address] Dr. Prabhu Lopez WBC 4.8 103/ul Normal 4.0-11.0 The [facility] Comment on above: Performed By: #### U JESI, BMP #### [facility] [address] [place] [address] Dr. Prabhu Lopez CREA 24 HR URINEon 08-14- 3 CREA, 24 HR UR 875.48 mg/24 hr Normal 800.00-1,8 00. 00 [facility] Comment on above: Performed By: #### N A24U, [id number] #### [facility] [address] [address] [address] Prabhu Lopez URINE CREAT 81.44 mg/dL Normal 20.00-300.00 [facility] Comment on above: Performed By: #### N A24U, [id number] #### [facility] [address] [place] [address] Dr. Prabhu Lopez FREE THYROXINE INDEX T7on FTI 2.34 Normal 1.30-4.50 [facility] Comment on above: Performed By: #### U JESI, BMP #### [facility] [address] [place] [address] Dr. Prabhu Lopez T3U 33.0 % Normal 30.0-39.0 [facility] Comment on above: Performed By: #### U JESI, BMP #### [facility] [address] [place] [address] Dr. Prabhu Lopez T4 [Mass/Vol] 7.10 ug/dL Normal 4.80-13.90 [facility] Comment on above: Performed By: #### U JESI, BMP #### [facility] [address] [place] [address] Dr. Prabhu Lopez GLYCOHEMOGLOBIN A1Con 2022 ADA RECOMMENDATION SEE BELOW Normal [facility] Comment on above: Result Comment: ADA RECOMMENDED LIMIT 4.0 - 6.0 ADA THERAPEUTIC TARGET < 7.0 ACTION SUGGESTED > 7.0 Performed By: #### U JESI, BMP #### [facility] [address] [place] [address] Dr. Prabhu Lopez Glucose [Mass/Vol] 123 mg/dL Normal [facility] Comment on above: Performed By: #### U JESI, BMP #### [facility] [address] [place] [address] Dr. Prabhu Lopez HbA1c (Bld) [Mass fraction] 5.9 % Normal 4.5-6.2 [facility] Comment on above: Performed By: #### U JESI, BMP #### [facility] [address] [place], [place] [id number] Dr. Prabhu Lopez LIPID PROFILEon 08-14-2022 CHOL-HDL RATIO NORM SEE BELOW Normal [facility] Comment on above: Result Comment: 3.3 - 4.4 LOW RISK 4.4 - 7.1 AVERAGE RISK 7.1 - 11.0 MODERATE RISK >11.0 HIGH RISK Performed By: #### U JESI, BMP #### [facility] [address] [address] [address] Prabhu Lopez Cholesterol [Mass/Vol] 255 mg/dL Critically high <=200 [facility] Comment on above: Performed By: #### U JESI, BMP #### [facility] [address] [address] [address] Prabhu Lopez Cholesterol in HDL [Mass/Vol] 80 mg/dL Critically high 40-60 [facility] Comment on above: Performed By: #### U JESI, BMP #### [facility] [address] [address] [address] Prabhu Lopez Cholesterol in LDL [Mass/Vol] 156.6 mg/dL Normal [facility] Comment on above: Performed By: #### U JESI, BMP #### [facility] [address] [address] [address] Prabhu Lopez Cholesterol.total/Ch olesterol in HDL [Mass ratio] 3.2 {ratio} Normal [facility] Comment on above: Performed By: #### U JESI, BMP #### [facility] [address] [address] [address] Prabhu Lopez HDL NORMAL > or = 60 mg/dl - LOW CARDIOVASCULAR RISK <40 mg/dl - HIGH CARDIOVASCULAR RISK Normal [facility] Comment on above: Performed By: #### U JESI, BMP #### [facility] [address] [address] [address] Prabhu Lopez LDL CALC NORMAL SEE BELOW Normal [facility] Comment on above: Result Comment: <100 mg/dl OPTIMAL 100 - 129 mg/dl NEAR OR ABOVE OPTIMAL 130 - 159 mg/dl BORDERLINE HIGH 160 - 189 mg/dl HIGH >190 mg/dl VERY HIGH Performed By: #### U JESI, BMP #### [facility] [address] [place] [address] Dr. Prabhu Lopez Triglyceride [Mass/Vol] 92 mg/dL Normal <=150 [facility] Comment on above: Performed By: #### U JESI, BMP #### [facility] [address] [place] [address] Dr. Prabhu Lopez VLDL CALC 18.4 mg/dL Normal [facility] Comment on above: Performed By: #### U JESI, BMP #### [facility] [address] [place] [address] Dr. Prabhu Lopez PROF 14(COMP METB)on 023 Albumin [Mass/Vol] 3.9 g/dL Normal 3.4-5.0 [facility] Comment on above: Performed By: #### U JESI, BMP #### [facility] [address] [place] [address] Dr. Prabhu Lopez Albumin/Globulin [Mass ratio] 0.8 {ratio} Normal [facility] Comment on above: Performed By: #### U JESI, BMP #### [facility] [address] [place] [address] Dr. Prabhu Lopez ALP [Catalytic activity/Vol] 74 U/L Normal 46-116 [facility] Comment on above: Performed By: #### U JESI, BMP #### [facility] [address] [place] [address] Dr. Prabhu Lopez ALT [Catalytic activity/Vol] 29 U/L Normal 14-59 [facility] Comment on above: Performed By: #### U JESI, BMP #### [facility] [address] [place] [address] Dr. Prabhu Lopez Anion gap [Moles/Vol] 10.9 mmol/L Normal [facility] Comment on above: Performed By: #### U JESI, BMP #### [facility] [address] [place] [address] Dr. Prabhu Lopez AST [Catalytic activity/Vol] 22 U/L Normal 15-37 [facility] Comment on above: Performed By: #### U JESI, BMP #### [facility] [address] [address] [address] Prabhu Lopez Bilirubin [Mass/Vol] 0.7 mg/dL Normal 0.2-1.0 [facility] Comment on above: Performed By: #### U JESI, BMP #### [facility] [address] [place] [address] Dr. Prabhu Lopez Calcium [Mass/Vol] 8.9 mg/dL Normal 8.5-10.1 [facility] Comment on above: Performed By: #### U JESI, BMP #### [facility] [address] [place] [address] Dr. Prabhu Lopez Chloride [Moles/Vol] 106 mmol/L Normal 98-107 [facility] Comment on above: Performed By: #### U JESI, BMP #### [facility] [address] [place] [address] Dr. Prabhu Lopez CO2 [Moles/Vol] 30.1 mmol/L Normal 21.0-32.0 [facility] Comment on above: Performed By: #### U JESI, BMP #### [facility] [address] [place] [address] Dr. Prabhu Lopez Creatinine [Mass/Vol] 0.94 mg/dL Normal 0.55-1.02 [facility] Comment on above: Performed By: #### U JESI, BMP #### [facility] [address] [place] [address] Dr. Prabhu Lopez EGFR-AF PALESTINIAN >60 Normal >=60 [facility] Comment on above: Performed By: #### U JESI, BMP #### [facility] [address] [place] [address] Dr. Prabhu Lopez EGFR-NON AF PALESTINIAN >60 Normal >=60 [facility] Comment on above: Performed By: #### U JESI, BMP #### [facility] [address] [place] [address] Dr. Prabhu Lopez Globulin (S) [Mass/Vol] 4.8 g/dL Normal [facility] Comment on above: Performed By: #### U JESI, BMP #### [facility] [address] [place] [address] Dr. Prabhu Lopez Glucose [Mass/Vol] 96 mg/dL Normal 74-106 [facility] Comment on above: Performed By: #### U JESI, BMP #### [facility] [address] [address] [address] Prabhu Lopez Potassium [Moles/Vol] 4.0 mmol/L Normal 3.5-5.1 [facility] Comment on above: Performed By: #### U JESI, BMP #### [facility] [address] [address] [address] Prabhu Lopez Protein [Mass/Vol] 8.7 g/dL Critically high 6.4-8.2 [facility] Comment on above: Performed By: #### U JESI, BMP #### [facility] [address] [place] [address] Dr. Prabhu Lopez Sodium [Moles/Vol] 143 mmol/L Normal 136-145 [facility] Comment on above: Performed By: #### U JESI, BMP #### [facility] [address] [place] [address] Dr. Prabhu Lopez Urea nitrogen [Mass/Vol] 13.0 mg/dL Normal 7.0-18.0 [facility] Comment on above: Performed By: #### U JESI, BMP #### [facility] [address] [place] [address] Dr. Prabhu Lopez Urea nitrogen/Creatinine [Mass ratio] 13.8 mg/mg Normal [facility] Comment on above: Performed By: #### U JESI, BMP #### [facility] [address] [place] [address] Dr. Prabhu Lopez PTH INTACTon 08-14-2022 PTH, Intact 17 pg/mL Normal 15-65 [facility] Comment on above: Performed By: #### U JESI, BMP #### [facility] [address] [place] [address] Dr. Prabhu Lopez SODIUM 24 HR URINEon 023 NA, 24 HR UR 111 mmol/24 hr Normal 40-220 [facility] Comment on above: Performed By: #### N A24U, [id number] #### [facility] [address] [address] [address] Prabhu Lopez Sodium (U) [Moles/Vol] 103 mmol/L Critically high 30-90 [facility] Comment on above: Performed By: #### N A24U, [id number] #### [facility] [address] [address] [address] Prabhu Lopez TSHon 08-14-2022 TSH 2.531 uIU/mL Normal 0.358-3.740 [facility] Comment on above: Performed By: #### U JESI, BMP #### [facility] [address] [place] [address] Dr. Prabhu Lopez PROF CHEM 8 (BAS METB)on Anion gap [Moles/Vol] 8.9 mmol/L Normal [facility] Comment on above: Performed By: #### U JESI, BMP #### [facility] [address] [place] [address] Dr. Prabhu Lpoez Calcium [Mass/Vol] 9.3 mg/dL Normal 8.5-10.1 [facility] Comment on above: Performed By: #### U JESI, BMP #### [facility] [address] [place] [address] Dr. Prabhu Lopez Chloride [Moles/Vol] 108 mmol/L Critically high 98-107 [facility] Comment on above: Performed By: #### U JESI, BMP #### [facility] [address] [place] [address] Dr. Prabhu Lopez CO2 [Moles/Vol] 28.5 mmol/L Normal 21.0-32.0 [facility] Comment on above: Performed By: #### U JESI, BMP #### [facility] [address] [place] [address] Dr. Prabhu Lopez Creatinine [Mass/Vol] 1.08 mg/dL Critically high 0.55-1.02 [facility] Comment on above: Performed By: #### U JESI, BMP #### [facility] [address] [place] [address] Dr. Prabhu Lopez EGFR-AF PALESTINIAN >60 Normal >=60 [facility] Comment on above: Performed By: #### U JESI, BMP #### [facility] [address] [place] [address] Dr. Prabhu Lopez EGFR-NON AF PALESTINIAN 52 mL/min/1.73m2 Critically low >=60 [facility] Comment on above: Performed By: #### U JESI, BMP #### [facility] [address] [address] [address] Prabhu Lopez Glucose [Mass/Vol] 94 mg/dL Normal 74-106 [facility] Comment on above: Performed By: #### U JESI, BMP #### [facility] [address] [place] [address] Dr. Prabhu Lopez Potassium [Moles/Vol] 3.4 mmol/L Critically low 3.5-5.1 [facility] Comment on above: Performed By: #### U JESI, BMP #### [facility] [address] [place] [address] Dr. Prabhu Lopez Sodium [Moles/Vol] 142 mmol/L Normal 136-145 [facility] Comment on above: Performed By: #### U JESI, BMP #### [facility] [address] [place] [address] Dr. Prabhu Lopez Urea nitrogen [Mass/Vol] 17.0 mg/dL Normal 7.0-18.0 [facility] Comment on above: Performed By: #### U JESI, BMP #### [facility] [address] [place] [address] Dr. Prabhu Lopez Urea nitrogen/Creatinine [Mass ratio] 15.7 mg/mg Normal [facility] Comment on above: Performed By: #### U JESI, BMP #### [facility] [address] [place] [address] Dr. Prabhu Lopez URIC ACID SERUMon 08-12-2022 Urate [Mass/Vol] 4.8 mg/dL Normal 2.6-6.0 [facility] Comment on above: Performed By: #### U JESI, BMP #### [facility] [address] [place] [address] Dr. Prabhu Lopez 36on 08-04-2022 36 Surgery was approved. I called pt to schedule. Pt did not answer LMOV to return call. Normal [facility] Prep for Procedureon 023 Prep for Procedure [id number] Guillermina Lopez 1965 F Date Provider Department Center 08/04/2022 PATRICIA MAK MP ORTHO MPORTHO No family history on file Normal [facility] XR KUB 1 VIEWon 05-23-2022 XR [...] WIL KAYE Date: 2022-05-23 09:40 Normal [facility]-04 SARS-CoV-2 (COVID-19) RNA TANGELA+probe Ql (Unsp spec) Not detected Normal NOT DETECTED [facility] Comment on above: Result Comment: When diagnostic [...] for this test is supported by the Testing Machine Operator of Health and Human Service's declaration that [...] used). Performed By: #### C VDTB #### [facility] [address] [place] [address] Dr. Prabhu Lopez Covid-19 PCR ([facility])on SARS-CoV-2 (COVID-19) RNA TANGELA+probe Ql (Unsp spec) Not detected Normal NOT DETECTED [facility] Comment on above: Result Comment: This test is not yet approved or cleared by the [place] FDA. When there are no FDA-approved or cleared tests available, and other criteria are met, FDA can make tests available under an emergency access mechanism called an Emergency Use Authorization (EUA). The EUA for this test is supported by the [place] of Health and Human Service's (HHS's) declaration [...] SARS-CoV-2. Performed By: #### C VDTB #### [facility] [address] [place] [address] [address] [address] Prabhu Lopez B-Type Natriuretic Peptideon 02-12-2021 Natriuretic peptide B (Bld) [Mass/Vol] 36.0 pg/mL Normal 5-100 [facility] Comment on above: Result Comment: PERF ORMED BY: [facility] [address] [place] [address] PATHOLOGIST WEAVING LOOM OPERATOR NICANOR BALTAZAR M.D. Performed By: #### C BC, PTT, CKMB, BMP, CK, BNP, PT, HS TROP #### [facility] [address] Basic Metabolic Panelon Calcium [Mass/Vol] 8.9 mg/dL Normal 8.2-10.2 [facility] Comment on above: Performed By: #### C BC, PTT, CKMB, BMP, CK, BNP, PT, HS TROP #### [address] Chloride [Moles/Vol] 104 mmol/L Normal 95-114 [facility] Comment on above: Performed By: #### C BC, PTT, CKMB, BMP, CK, BNP, PT, HS TROP #### [address] CO2 [Moles/Vol] 24.0 mmol/L Normal 22.0-30.0 [facility] Comment on above: Performed By: #### C BC, PTT, CKMB, BMP, CK, BNP, PT, HS TROP #### [address] Creatinine [Mass/Vol] 1.06 mg/dL High 0.44-1.03 [facility] Comment on above: Performed By: #### C BC, PTT, CKMB, BMP, CK, BNP, PT, HS TROP #### [address] Creatinine Clr Calc Pharmacy 64.12 [facility] Comment on above: Result Comment: PERF ORMED BY: [place] [address] PATHOLOGIST WEAVING LOOM OPERATOR NICANOR BALTAZAR M.D. Performed By: #### C BC, PTT, CKMB, BMP, CK, BNP, PT, HS TROP #### [address] Estimated GFR ( Najma > 60 [facility] Comment on above: Result Comment: GFR estimated reference range: According to KDOQI guidelines, <60 ml/min/1.73m2 is sufficient to diagnose a patient with chronic kidney disease. Performed By: #### C BC, PTT, CKMB, BMP, CK, BNP, PT, HS TROP #### [address] Estimated GFR (Non- Am 54 Normal [facility] Comment on above: Performed By: #### C BC, PTT, CKMB, BMP, CK, BNP, PT, HS TROP #### [facility] [address] Glucose [Mass/Vol] 106 mg/dL High 70-100 [facility] Comment on above: Result Comment: [facility] Glucose Reference Range is dependent on time and content of last meal. Glucose of more than 200 mg/dL in a nonstressed, ambulatory subject supports the diagnosis of Diabetes Mellitus. ADA recommended reference range Performed By: #### C BC, PTT, CKMB, BMP, CK, BNP, PT, HS TROP #### [address] Potassium [Moles/Vol] 3.3 mmol/L Low 3.5-5.1 [facility] Comment on above: Performed By: #### C BC, PTT, CKMB, BMP, CK, BNP, PT, HS TROP #### [address] Sodium [Moles/Vol] 138 mmol/L Normal 136-146 [facility] Comment on above: Performed By: #### C BC, PTT, CKMB, BMP, CK, BNP, PT, HS TROP #### [address] Urea nitrogen [Mass/Vol] 11 mg/dL Normal 9-23 [facility] Comment on above: Performed By: #### C BC, PTT, CKMB, BMP, CK, BNP, PT, HS TROP #### [address] Complete Blood Count Auto Di ffon 02-12-2021 Basophils (Bld) [#/Vol] 0.1 10*3/uL Normal 0.0-0.2 [facility] Comment on above: Result Comment: PERF ORMED BY: [place] [address] PATHOLOGIST WEAVING LOOM OPERATOR NICANOR BALTAZAR M.D. Performed By: #### C BC, PTT, CKMB, BMP, CK, BNP, PT, HS TROP #### [address] Basophils/100 WBC (Bld) 1.2 % Normal . [facility] Comment on above: Performed By: #### C BC, PTT, CKMB, BMP, CK, BNP, PT, HS TROP #### [address] Eosinophils (Bld) [#/Vol] 0.2 10*3/uL Normal 0.0-0.45 [facility] Comment on above: Performed By: #### C BC, PTT, CKMB, BMP, CK, BNP, PT, HS TROP #### [address] Eosinophils/100 WBC (Bld) 3.2 % Normal . [facility] Comment on above: Performed By: #### C BC, PTT, CKMB, BMP, CK, BNP, PT, HS TROP #### [address] Erythrocyte distribution width (RBC) [Ratio] 13.5 % Normal 11.9-15.3 [facility] Comment on above: Performed By: #### C BC, PTT, CKMB, BMP, CK, BNP, PT, HS TROP #### [address] Hematocrit (Bld) [Volume fraction] 36.8 % Normal 34.0-46.4 [facility] Comment on above: Performed By: #### C BC, PTT, CKMB, BMP, CK, BNP, PT, HS TROP #### [address] Hemoglobin (Bld) [Mass/Vol] 12.2 g/dL Normal 11.8-15.4 [facility] Comment on above: Performed By: #### C BC, PTT, CKMB, BMP, CK, BNP, PT, HS TROP #### [address] Lymphocytes (Bld) [#/Vol] 2.3 10*3/uL Normal 1.00-4.8 [facility] Comment on above: Performed By: #### C BC, PTT, CKMB, BMP, CK, BNP, PT, HS TROP #### [address] Lymphocytes/100 WBC (Bld) 37.1 % Normal . [facility] Comment on above: Performed By: #### C BC, PTT, CKMB, BMP, CK, BNP, PT, HS TROP #### [address] MCH (RBC) [Entitic mass] 29.5 pg Normal 24.7-34.3 [facility] Comment on above: Performed By: #### C BC, PTT, CKMB, BMP, CK, BNP, PT, HS TROP #### [address] MCV (RBC) [Entitic vol] 89.0 fL Normal 80-100 [facility] Comment on above: Performed By: #### C BC, PTT, CKMB, BMP, CK, BNP, PT, HS TROP #### [address] Mean Corpuscular HGB Conc 33.2 g/dL Normal 32.0-35.0 [facility] Comment on above: Performed By: #### C BC, PTT, CKMB, BMP, CK, BNP, PT, HS TROP #### [address] Monocytes (Bld) [#/Vol] 0.5 10*3/uL Normal 0.0-0.8 [facility] Comment on above: Performed By: #### C BC, PTT, CKMB, BMP, CK, BNP, PT, HS TROP #### [address] Monocytes/100 WBC (Bld) 8.7 % Normal . [facility] Comment on above: Performed By: #### C BC, PTT, CKMB, BMP, CK, BNP, PT, HS TROP #### [address] [place] [address] [place] Neutrophils (Bld) [#/Vol] 3.1 10*3/uL Normal 1.8-7.7 [facility] Comment on above: Performed By: #### C BC, PTT, CKMB, BMP, CK, BNP, PT, HS TROP #### [facility] [address] Neutrophils/100 WBC (Bld) 49.8 % Normal . [facility] Comment on above: Performed By: #### C BC, PTT, CKMB, BMP, CK, BNP, PT, HS TROP #### [facility] [address] Nucleated RBC/100 WBC (Bld) [Ratio] 0.0 % Normal 0-0.5 [facility] Comment on above: Performed By: #### C BC, PTT, CKMB, BMP, CK, BNP, PT, HS TROP #### [facility] [address] Platelet mean volume (Bld) [Entitic vol] 9.7 fL Normal 6.3-10.7 [facility] Comment on above: Performed By: #### C BC, PTT, CKMB, BMP, CK, BNP, PT, HS TROP #### [place] [address] [place] Platelets (Bld) [#/Vol] 219 10*3/uL Normal 150-450 [facility] Comment on above: Performed By: #### C BC, PTT, CKMB, BMP, CK, BNP, PT, HS TROP #### [facility] [address] [place] [address] [place] RBC (Bld) [#/Vol] 4.13 10*6/uL Normal 3.60-5.00 [facility] Comment on above: Performed By: #### C BC, PTT, CKMB, BMP, CK, BNP, PT, HS TROP #### [place] [address] [place] WBC (Bld) [#/Vol] 6.3 10*3/uL Normal 4.5-11.0 [facility] Comment on above: Performed By: #### C BC, PTT, CKMB, BMP, CK, BNP, PT, HS TROP #### [address] Creatine Kinaseon 02-12-2021 CK [Catalytic activity/Vol] 178 U/L Normal 22-269 [facility] Comment on above: Performed By: #### C BC, PTT, CKMB, BMP, CK, BNP, PT, HS TROP #### [facility] [address] Creatinine Kinase MBon 02-12 CK.MB [Mass/Vol] 2.5 ng/mL Normal 0.6-6.3 [facility] Comment on above: Performed By: #### C BC, PTT, CKMB, BMP, CK, BNP, PT, HS TROP #### [address] CKMB Relative Index 1.4 % Normal 0.00-2.50 [facility] Comment on above: Performed By: #### C BC, PTT, CKMB, BMP, CK, BNP, PT, HS TROP #### [address] Partial Thromboplastin Timeo n 02-12-2021 aPTT Coag (Bld) [Time] 29.3 s Normal 25.1-36.5 [facility] Comment on above: Result Comment: PERF ORMED BY: [place] [address] PATHOLOGIST WEAVING LOOM OPERATOR NICANOR BALTAZAR M.D. Performed By: #### C BC, PTT, CKMB, BMP, CK, BNP, PT, HS TROP #### [address] Prothrombin Time INRon 02-12 INR Coag (PPP) [Relative time] 1.0 {INR} Normal [facility] Comment on above: Result Comment: INR [...] BMP, CK, BNP, PT, HS TROP #### [facility] [address] PT Coag (PPP) [Time] 11.5 s Normal 9.0-12.9 [facility] Comment on above: Performed By: #### C BC, PTT, CKMB, BMP, CK, BNP, PT, HS TROP #### [facility] [address] Troponin I High Sensitivityo n 02-12-2021 Troponin I High Sensitivity 5 pg/mL Normal 0-15 [facility] Comment on above: Result Comment: PERF ORMED BY: [place] [address] PATHOLOGIST WEAVING LOOM OPERATOR NICANOR BALTAZAR M.D. Performed By: #### C BC, PTT, CKMB, BMP, CK, BNP, PT, HS TROP #### [address] XR chest 2V*on 02-12-2021 XR chest 2V* [facility] [place] [address] [place] [address] XRay Report Signed Patient: Alyssa Lopez MR#: [id number] : 1965 Acct:[id number] Age/Sex: 55 / F ADM Date: 02/11/21 Loc: ER Room: Type: [facility] ER Attending Dr: Ordering Provider: [...] Reid Graves M.D.02/12/2021 9:18 AM Dictation Location: [place] [address] Transcribed By: [facility] 02/12/21917 Dictated By: Reid Graves DO 02/12/21914 Signed By: 02/12/21917 [facility] ECG 12 lead ECGon 02-11-2021 ECG 12 lead ECG [facility] [place] [address] Electrocardiograph Report Signed Patient: Alyssa Lopez MR#: [id number] : 1965 Acct:[id number] Age/Sex: 55 / F ADM Date: 02/11/21 [...] ECGs available Confirmed by Stefan Carolina DO ([id number]) on 02/11/2021 11:41:46 PM Referred By: Electronically Signed By:Stefan Carolina DO Transcribed By: MUS Signed By Stefan Carolina DO 02/11 2341 [facility] Vital Signs Date Time Vital Sign Value Performing Clinician Faci lity 05-26-2022 08:49-0500 Blood Pressure Location Hoda SALMON [facility] 05-26-2022 08:49-0500 Diastolic blood pressure 74 mm[Hg] Hoda SALMON [facility] 05-26-2022 08:49-0500 Heart rate 70 /min Hoda SALMON [facility] 05-26-2022 08:49-0500 Respiratory rate 16 /min Hoda JEFFREY [facility] 05-26-2022 08:49-0500 Systolic blood pressure 128 mm[Hg] Hoda SALMON [facility] Encounters Encounter Date Encounter Type Care Provider Facility Start: 01-14-2024 End: 01-14-2024 ambulatory LUCIO MIXON Facility:[facility] Start: 01-14-2024 End: 01-14-2024 Patient encounter procedure Lucio Mixon MD Work Phone: Orthopaedic [facility] Comment on above: Primary osteoarthrit is of first carpometacarpal joint of left hand (Primary Dx) Start: 12-29-2023 End: 12-29-2023 ambulatory Allen Noriega [facility] Start: 12-29-2023 End: 12-29-2023 Patient encounter procedure Allen Noriega [facility] Start: 12-24-2023 End: 12-24-2023 ambulatory Allen Noriega [facility] Start: 12-24-2023 End: 12-24-2023 Lab Drop off Allen Noriega [facility] Start: 09-29-2023 Telephone encounter Ines Coker MD Work Phone: Neurology Comment on above: EMG- FAXED RESULTS Start: 09-29-2023 End: 09-29-2023 ambulatory INES COKER Neurology [facility] Start: 09-29-2023 End: 09-29-2023 Patient encounter procedure Emg 2 Neur [facility] (Max Weight 400) Neurology [facility] Start: 08-28-2023 Telephone encounter Ines Coker MD Work Phone: Neurology Comment on above: EMG Instructions Start: 08-25-2023 Orders Only Laine pimentel [employer]PER[employer] Work Phone: Neurology Comment on above: Sprain of left wrist , sequela (Primary Dx); Carpal tunnel syndrome of left wrist Start: 08-20-2023 Telephone encounter Lucio prasad MD Work Phone: [facility] Start: 08-13-2023 End: 08-13-2023 Patient encounter procedure Lucio Mixon MD Work Phone: [facility] Comment on above: Numbness and tinglin g in left hand (Primary Dx) Start: 08-13-2023 End: 08-13-2023 ambulatory LAINE GRANGER Facility:[facility] Start: 08-13-2023 End: 08-13-2023 Subsequent hospital visit by physician [facility] 1 Xray [facility] Comment on above: Pain [R52] Start: 07-31-2023 Orders Only Lucio Mixon MD Work Phone: Referring Physician Comment on above: Pain (Primary Dx) Start: 07-06-2023 End: 07-06-2023 ambulatory Hoda SALMON Facility:[facility] Start: 07-06-2023 End: 07-06-2023 Patient encounter procedure Hoda SALMON [facility] Start: 06-30-2023 ambulatory [facility] Start: 04-22-2023 ambulatory [facility] Start: 02-10-2023 ambulatory [facility] Start: 11-26-2022 ambulatory [facility] Start: 10-15-2022 End: 10-15-2022 ambulatory [facility] Start: 10-01-2022 End: 10-01-2022 ambulatory [facility] Start: 08-15-2022 Encounter for genera l adult medical examination without abnormal findings DR SHAI LAU . [facility] Start: 08-14-2022 End: 08-15-[address] SHAI LAU . Facility:[facility] Start: 08-14-2022 End: 08-15-2022 Encounter for general adult medical examination without abnormal findings DR SHAI LAU . Facility:[facility] Start: 08-12-2022 End: 08-13-[address] HODA SALMON . Facility:[facility] Start: 05-26-2022 End: 05-26-2022 Patient encounter procedure Hoda SALMON [facility] Start: 05-22-2022 End: 05-23-[address] HODA SALMON . Facility:[facility] Start: 11-15-2021 End: 11-15-[address] SHAI LAU . Facility:[facility] Start: 11-12-2021 End: 11-12-[address] SHAI LAU . Facility:[facility] Start: 07-02-2021 End: 07-02-2021 Lab Drop off EMERITA PRINCE [facility] Start: 07-02-2021 End: 07-02-2021 Patient encounter procedure Toni Carrera Jr. [facility] Procedures Date Procedure Procedure Detail [...] 12-06-2023 Covid-19 Vaccine () Covid-19 Vaccine () [facility] Start: 12-06-2023 Covid-19 Vaccine () Covid-19 Vaccine () [facility] Start: 12-06-2023 Influenza vaccination [facility] Start: 09-29-2023 End: 09-29-2023 ambulatory 09/29/2023 9:25 AM EDT Procedure Neurology [facility] [address] [place] [address] EMG STANDARD Neurology [facility] Comment on above: EMG STANDARD Start: 08-13-2023 End: 08-13-2023 Patient encounter procedure Xray [facility] Comment on above: sprain of left wrist , kwesinoah is coming in for seccond opinion, had carple tunnel surgery on this wrist october 02, 2022 Start: 04-06-2023 Behavioral Health Screening Behavioral Health Screening [facility] Start: 12-05-2022 Covid-19 Vaccine () Covid-19 Vaccine () [facility] Start: 12-05-2022 Covid-19 Vaccine () Covid-19 Vaccine () [facility] Start: 06-09-2015 Shingrix Vaccine (1 of 2) Shingrix Vaccine (1 of 2) [facility] Start: 2010 Diabetes Screening Diabetes Screenin g [facility] Start: 2010 Lipid panel Lipid Screening [facility] Start: 2010 Screening for malign ant neoplasm of colon [facility] Start: 2005 Screening for malign ant neoplasm of breast Mammogram Screening [facility] Start: 06-09-1995 Screening for malign ant neoplasm of cervix HPV Testing [facility] Start: 1986 Screening for malign ant neoplasm of cervix [facility] Start: 1984 Hepatitis B Vaccine (1 of 3 - 19+ 3-dose series) Hepatitis B Vaccine (1 of 3 - 19+ 3-dose series) [facility] Start: 1984 Urine microalbumin profile DTaP,Tdap,Td Vaccine (1 - Tdap) [facility] Start: 06-09-1983 Anxiety Screening Anxiety Screening [facility] Start: 06-09-1983 Depression Screening Depression Scre ening [facility] Start: 06-09-1983 Hepatitis C screening Hepatitis C Sc reening [facility] Start: 06-09-1983 HIV screening HIV Screening [facility] End: 08-24-2024 EMG(NEURO/NI) EMG(NEURO/NI) EMG Routine Sprain of left wrist, sequela Carpal tunnel syndrome of left wrist 1 Occurrences starting 08/25/2023 until 08/24/2024 [facility] Work Phone: Comment on above: 1 Occurrences starti ng 08/25/2023 until 08/24/2024 End: 08-29-2024 XR Wrist - left 4 Views XR WRIST INJURY 4V PA/LAT/OBL/SCAPH LEFT Radiology Routine Pain 1 Occurrences starting 07/31/2023 until 08/29/2024 [facility] Comment on above: 1 Occurrences starti ng 07/31/2023 until 08/29/2024 End: 08-29-2024 XR Wrist - left PA and Lateral and Oblique XR WRIST GENERAL 3V PA/LAT/OBL LEFT Radiology Routine Pain 1 Occurrences starting 07/31/2023 until 08/29/2024 [facility] Work Phone: Comment on above: 1 Occurrences starti ng 07/31/2023 until 08/29/2024 Immunizations Immunization Date Immunization Notes Care Provider [facility] 02-26-2022 influenza virus vaccine, unspecified formulation Lucio Mixon MD Work Phone: [facility] 08-08-2020 SARS-CoV-2 (COVID-19 ) Ad26 vaccine, recombinant Toni Carrera Jr. [facility] 07-18-2020 SARS-CoV-2 (COVID-19 ) Ad26 vaccine, recombinant Toni Carrera Jr. [facility] Payers Date Payer Category Payer Private Health Insurance [facility] [employer] CHO[employer] PL[employer] [id number] 2023-Present [phone] [address] [address] [place] [address] PPO [id number] 2019 Unknown [id number] 2019 Unknown [id number] 2019 Unknown [id number] 1965 Unknown [id number] .[id number] 1965 Unknown [id number] .[id number] 1965 Unknown [id number] [id number] .[id number] 1965 Unknown [id number] [id number] .[id number] 1965 Unknown [id number] [id number] .[id number] 1965 Unknown [id number] [id number] .2.593 1965 Unknown [id number] [id number] .2.727 1965 Unknown [id number] [id number] .[id number] 1965 Unknown [id number] .[id number] 1959 Unknown [id number] Social History Date Type Detail Facility Start: 07-06-2014 End: 05-13-2021 Tobacco smoking status Never smoked tobacco (finding) [facility] Start: 08-13-2023 End: 01-14-2024 Sex Assigned At Female [facility] Start: 07-28-2014 End: 01-14-2024 Alcohol intake Current drinker of alcohol (finding) [facility] Start: 1965 Sex Assigned At Not on file [facility] Start: 08-13-2023 End: 01-14-2024 History of Social function [facility] National Score (1-10 0), lower number is lower risk 46 [facility] Functional Status Date Assessment Result Facility 05-26-2022 Functional Status N/A [facility] Clinical Notes 05-26-2022 to 01-14-2024 Lucio Mixon MD - 01/14/2024 12:53 PM EDTTelephone Encounter - Neema Campos - 09/29/2023 2:14 PM EDTTelephone Encounter - Neema Campos - 09/29/2023 2:14 PM EDTRadiology Note Date & Type Note Facility 01-14-2024 History of Present illness Narrative Lucio Mixon MD Department of Orthopaedics [facility] [address] [facility] [address] Dept: [phone] Dept January 14, 2024 CHIEF COMPLAINT: Pain and Follow Up of the Left thumb pain and index and middle finger HPI AMB ROOMING INTAKE FLOWSHEET DATA Pain Pain Level: 5 Pain Location: (lef tthumb and index and middle finger) Description: (tingling) Frequency: Continuous Pt had left CTR September 2022. Pt had a fall at work back in 2019 and ever since then has had this thumb pain. Pt has tried immobilizing brace before without relief. 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 ASSESSMENT: M18.12 Primary osteoarthritis of first carpometacarpal joint of left hand (primary encounter diagnosis) PLAN: She primarily has OA of the thumb joint. She has a normal nerve test (dated 09/29/2023) after her surgery last September. She may need her cervical spine investigated. As I cannot correlate her symptoms to carpal tunnel again. OBJECTIVE: Ms. Alyssa Lopez is a pleasant [...] 3, good mood and affect. Musculoskeletal: Prior surgical incision noted from her carpal tunnel without concerns. Mild swelling of basal joint and tenderness palpation with some pain on grind testing. Mild, light touch diminished sensation in the thumb, index Imaging: Based on extensive electrodiagnostic evaluation of the left upper extremity, the EMG findings are as follows: - No electrodiagnostic evidence of a left median mononeuropathy at the wrist, as seen in carpal tunnel syndrome, based on normal nerve conduction studies of the median nerve and normal dnevdg-ao-jifsf comparative studies. - No electrodiagnostic evidence of a left C5-C8 intraspinal canal lesion, such as motor radiculopathy, based on needle examination of C5-C8 innervated muscles. - Screening studies of the left ulnar nerve are normal. Supporting Subjective Information Below: Past Surgical History: PAST SURGICAL HISTORY Procedure Laterality Date PAST SURGICAL HISTORY OF left hand surgery TONSILLECTOMY HX Medications: Current Outpatient Medications Medication Sig ONE DAILY MULTIVITAMIN ORAL Take by mouth. Rodessa-3 Fatty Acids-Vitamin E (FISH OIL) 1,000 mg [...] Musculoskeletal (see HPI) Psych (no depression, anxiety) Lucio Mixon MD documented in this encounter [facility] 09-29-2023 Telephone encounter Note Results from EMG performed on 09/29/2023 were faxed to Laine Granger at fax number on 09/29/2023. Fax confirmation received. [facility] 09-29-2023 Miscellaneous Notes Results from EMG performed on 09/29/2023 were faxed to Laine Granger at fax number on 09/29/2023. Fax confirmation received. documented in this encounter [facility] 09-29-2023 History of Present illness Narrative UNIVERSAL PROTOCOL / SAFETY CHECKLIST [...] MD Neuromuscular Medicine (NM) Staff [facility], [facility] Neurologic [place] documented in this encounter [facility] 09-29-2023 Note HNO ID: [id number] Author: RAMSEY NDIAYE MD Service: ? Author [...] MD Neuromuscular Medicine (NM) Staff [facility]romuscular [facility], [facility] Neurologic [place] [facility] 08-28-2023 Telephone encounter Note Spoke with Alyssa [...] expressed understanding with these instructions. [facility] 08-28-2023 Miscellaneous Notes Spoke with Alyssa [...] instructions. documented in this encounter [facility] 08-24-[address] Mixon's note still not completed, I did call Nayeli at occupational health. We did discuss that the patient needs to find their old nerve conduction study and get a new nerve conduction study (Study can be request by POR) and then should follow-up with Dr. Mixon to discuss both. [facility] Work Phone: 08-24-[address] [...] for the 08/13/23 visit. Please fax to [phone] Callback number: [phone] Fax Number (if necessary): [phone] Additional info if needed (Prior Auth #, Claim #, etc ): N/A Karly Leija documented in this encounter [facility] 08-20-2023 Telephone encounter Note Name of Caller: Nayeli at Occupational Health Relationship to patient: Last visit in this department: 08/13/2023 Reason for Call: Other : Nayeli calling from Occupational Health to get office notes and any test results if applicable for the 08/13/23 visit. Please fax to [phone] Callback number: [phone] Fax Number (if necessary): [phone] Additional info if needed (Prior Auth #, Claim #, etc ): N/A Karly Leija [facility] 08-13-2023 Note HNO ID: [id number] Author: LUCIO MIXON MD Service: ? Author Type: Physician Type: Progress Notes Filed: 09/08/2023 16:53 Note Text: Lucio Mixon MD Department of Orthopaedics [facility] [address] [facility] [address] Dept: [phone] Dept August 13, 2023 CHIEF COMPLAINT: New [...] her origional EMG test. SHe'll have her [facility]OR get an c9 for a new [...] ONE DAILY MULTIVITAMIN ORAL Take by mouth. Rodessa-3 Fatty Acids-Vitamin E (FISH OIL) 1,000 mg [...] US mail. Laine Granger CNP [address] [facility] [address] Lucio Mixon MD [facility] 08-13-2023 History of Present illness Narrative Lucio Mixon MD Department of Orthopaedics [facility] [address] [facility] [address] Dept: [phone] Dept August 13, 2023 CHIEF COMPLAINT: New [...] her origional EMG test. SHe'll have her [facility] POR get an c9 for a new [...] ONE DAILY MULTIVITAMIN ORAL Take by mouth. Rodessa-3 Fatty Acids-Vitamin E (FISH OIL) 1,000 mg [...] physician via US mail. Laine Granger CNP [address] [place] [address] Lucio Mixon MD documented in this encounter [facility] 08-13-2023 History of Present illness Narrative Radiology Service Progress Note PATIENT [...] PATIENT PRESENTS WITH AN IMPLANTABLE OR ATTACHED HADOOP INFRASTRUCTURE ARCHITECT: No RADIOLOGY DEPARTMENT: General X-ray: Exam(s) Completed: Upper Extremity X-Ray(s): Wrist, left PERIPHERAL IV DATA: Not applicable SIGNED BY: RT Brian(R) August 13, 2023 9:24 AM documented in this encounter [facility] 08-13-2023 Note HNO ID: [id number] Author: CONSTANCE VERMA RT(Gabriel) Service: ? Author [...] PATIENT PRESENTS WITH AN IMPLANTABLE OR ATTACHED HADOOP INFRASTRUCTURE ARCHITECT: No RADIOLOGY DEPARTMENT: General X-ray: Exam(s) Completed: Upper Extremity X-Ray(s): Wrist, left PERIPHERAL IV DATA: Not applicable SIGNED BY: RT Brian(Gabriel) August 13, 2023 9:24 AM [facility] 04-22-2023 Note Patient ID: Alyssa Lopez is [...] to verify the correct patient, procedure, equipment, family support specialist and site/side marked as required. [facility] 02-10-2023 Note Orthopedic Surgery Subjective 10/01/2022 [...] disease) Kidney stone Migraines Objective Left Hand: Qwzjyeshyf-cysy-nuqbmr scar from carpal tunnel incision. 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 [facility] 11-26-2022 Note Attestation signed by Max [...] disease) Kidney stone Migraines Objective Left Hand: Zmzrxtursr-mpzq-ewhzdt scar from carpal tunnel incision. 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 No notable events documented. [facility] 10-01-2022 Note Patient: Guillermina curry Procedure Information Date/Time: 10/01/22 0830 Procedure: CARPAL TUNNEL RELEASE (Left: Hand) Location: [facility] OR [address] [place] [address] OR Surgeons: Max Kowalski MD Relevant Problems [...] with attending. Additional Equipment Requests [facility] 05-26-2022 Hospital Discharge instructions Follow Up Care 05/26/2022 09:33:22 With:JEFFREY AVELAR, WENDY Campbell Address: [facility] [address] , [place] [address] [phone] When: Unknown [facility] [place] 05-26-2022 Hospital Discharge instructions Patient Education 05/26/2022 [...] include: ?Spinach. ?Rhubarb. ?Beets. ?Potato chips and south korean fries. ?Nuts. If you regularly take a diuretic medicine, make sure to eat at least 1 2 fruits or vegetables high in potassium each day. These include: ?Avocado. ?Banana. ?[place], prune, carrot, or tomato juice. ?Baked potato. [...] Casseroles. Pizza. Lasagna. Frozen meals. Potato chips. Hebrew fries. Summary You can reduce your risk [...] 07/18/2011 Document Revised: 07/13/2019 Document Reviewed: 03/03/2017 [employer] Patient Education 2020 [employer]ass. Follow Up Care 05/13/2021 09:33:00 With:JEFFREY AVELAR, Hoda Rios, URL Address: [facility] [address] [place] [address]- When: Unknown [facility] Evaluation + Plan note Future Appointments Appointment Date:05/26/2022 08:45:00 AM Scheduled Provider:Hoda SALMON MD Location:[facility] Appointment Type:URO Office Visit [facility] Evaluation + Plan note Future Appointments Appointment Date:05/26/2022 08:45:00 AM Scheduled Provider:Hoda SALMON MD Location:[facility] Appointment Type:URO Office Visit Diagnostic Tests PendingUrine Culture 07/02/21 [facility] Evaluation + Plan note Future Appointments Appointment Date:05/29/2023 08:00:00 AM Scheduled Provider:Hoda SALMON MD Location:[facility] Appointment Type:URO Office Visit [facility] Evaluation + Plan note Future Appointments Appointment Date:12/30/2023 12:00:00 PM Scheduled Provider: Location:.[facility] Appointment Type:US Abdominal/Pelvis (FT) Diagnostic Tests PendingReference Lab Notification 12/24/23 Future Scheduled TestsUS Pelvis Non-OB Complete 12/30/23US Transvaginal Non-OB 12/30/23 [facility] Evaluation note Diagnosis Pain- Primary Generalized pain documented in this encounter [facility] note* Diagnosis Sprain of left wrist, sequela- Primary Carpal tunnel syndrome of left wrist Carpal tunnel syndrome documented in this encounter [facility] note* Diagnosis Numbness and tingling in left hand- Primary Disturbance of skin sensation documented in this encounter [facility] note* Diagnosis Sprain of left wrist, sequela Carpal tunnel syndrome of left wrist Carpal tunnel syndrome [facility] Diagnosis Pain Generalized pain documented in this encounter [facility] note* Diagnosis Primary osteoarthritis of first carpometacarpal joint of left hand- Primary Primary localized osteoarthrosis, hand [facility] Narrative No data available for this section [facility] [employer] [facility] Discharge instructions No data available for this section [facility] progress note No data available for this section [facility] [employer] reason for referral (narrative)* Diagnostic Procedure Only (Routine) - Pending Review Specialty Diagnoses / Procedures Referred By Contac t Referred To Contact XR IMAGING Diagnoses Pain Procedures XR WRIST INJURY 4V PA/LAT/OBL/SCAPH LEFT RADEX WRIST COMPLETE MINIMUM 3 VIEWS Lucio Mixon MD [address] [place] [address] [place] [address] Referral ID Status Reason Start Date Expiration Date Visits Requested Visits Authorized [id number] Pending Review Auto-Generat ed Referral 07/31/2023 08/29/2024 1 1 * Diagnostic Procedure Only (Routine) - Authorized Specialty Diagnoses / Procedures Referred By Contac t Referred To Contact XR IMAGING Diagnoses Pain Procedures XR WRIST GENERAL 3V PA/LAT/OBL LEFT RADEX WRIST COMPLETE MINIMUM 3 VIEWS Lucio Mixon MD [address] [place] [address] Xr Imaging [id number] Referral ID Status Reason Start Date Expiration Date Visits Requested Visits Authorized [id number] Authorized Auto-Generat ed Referral 07/31/2023 08/29/2024 1 1 [facility] for referral (narrative)* Outpatient Procedure (Routine) - Pending Review Specialty Diagnoses / Procedures Referred By Contac t Referred To Contact [facility] Diagnoses Sprain of left wrist, sequela Carpal tunnel syndrome of left wrist Procedures EMG(NEURO/NI) NERVE CONDUCTION STUDIES 9-10 STUDIES Ines Coker MD [address] [id number] [facility] [place] [address] [place] [address] Referral ID Status Reason Start Date Expiration Date Visits Requested Visits Authorized [id number] Pending Review Auto-Generat ed Referral 08/25/2023 08/24/2024 1 1 [facility] Summary Purpose Family History No Family [...] Referral Specialty Diagnoses / Procedures Referred By Contac t Referred To Contact XR IMAGING Diagnoses Pain Procedures XR WRIST GENERAL 3V PA/LAT/OBL LEFT RADEX WRIST COMPLETE MINIMUM 3 VIEWS Lucio Mixon MD [address] [place] [address] Xr Imaging [place] [address] Referral ID Status Reason Start Date Expiration Date V isits Requested Visits Authorized [id number] Closed Auto-Generat ed Referral Patient Cleared - Admin/Chairm an/Director advise to proceed or did not respond 08/13/2023 08/13/2023 1 1 Additional Source Comments INFORMATION SOURCE (unrecogn ized section and content) DATE CREATED AUTHOR 05/29/2021 [facility] DATE CREATED AUTHOR AUTHOR'S ORGANIZ ATION 08/21/2022 [facility] DATE CREATED AUTHOR AUTHOR'S ORGANIZ ATION 07/01/2023 [facility] DATE CREATED AUTHOR AUTHOR'S ORGANIZ ATION 12/31/2023 [facility] DATE CREATED AUTHOR AUTHOR'S ORGANIZ ATION 01/02/2024 [employer] [facility] DATE CREATED AUTHOR AUTHOR'S ORGANIZ ATION 01/05/2024 [employer] [facility] DATE CREATED AUTHOR AUTHOR'S ORGANIZ ATION 01/16/2024 [facility] Patient Care team informatio n (unrecognized section and content) 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 Relationship Specialty Start Date End Date Bárbara LYLY Duenas [address] [place] [address] Family Medicine 07/24/23 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 Relationship Specialty Start Date End Date Bárbara LYLY Duenas [address] [place] [id number] Referring Family Medicine 07/24/23 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 Relationship Specialty Start Date End Date Laine Granger CNP [address] [place] [id number] Referring Family Medicine 07/24/23 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 Relationship Specialty Start Date End Date Laine Granger CNP [address] [id number] Referring Family Medicine 07/24/23 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 Relationship Specialty Start Date End Date Laine Granger CNP [address] [place] [id number] Referring Family Medicine 07/24/23 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 Relationship Specialty Start Date End Date Laine Granger CNP [address] [place] [phone] Referring Family Medicine 07/24/23 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 Relationship Specialty Start Date End Date Laine Granger CNP [address] [place] [address] Referring Family Medicine 07/24/23 Source Comments (unrecognize d section and content) In the event this informatio n is protected by the Federal Confidentiality of Alcohol and Drug Abuse Patient Records regulations: The Federal rules restrict any use of the information to criminally investigate or prosecute any alcohol or drug abuse patient.[facility] the event this information is protected by the Federal Confidentiality of Alcohol and Drug Abuse Patient Records regulations: The Federal rules restrict any use of the information to criminally investigate or prosecute any alcohol or drug abuse patient.[facility] the event this information is protected by the Federal Confidentiality of Alcohol and Drug Abuse Patient Records regulations: The Federal rules restrict any use of the information to criminally investigate or prosecute any alcohol or drug abuse patient.[facility] the event this information is protected by the Federal Confidentiality of Alcohol and Drug Abuse Patient Records regulations: The Federal rules restrict any use of the information to criminally investigate or prosecute any alcohol or drug abuse patient.[facility] the event this information is protected by the Federal Confidentiality of Alcohol and Drug Abuse Patient Records regulations: The Federal rules restrict any use of the information to criminally investigate or prosecute any alcohol or drug abuse patient.[facility] the event this information is protected by the Federal Confidentiality of Alcohol and Drug Abuse Patient Records regulations: The Federal rules restrict any use of the information to criminally investigate or prosecute any alcohol or drug abuse patient.[facility] the event this information is protected by the Federal Confidentiality of Alcohol and Drug Abuse Patient Records regulations: The Federal rules restrict any use of the information to criminally investigate or prosecute any alcohol or drug abuse patient.[facility] the event this information is protected by the Federal Confidentiality of Alcohol and Drug Abuse Patient Records regulations: The Federal rules restrict any use of the information to criminally investigate or prosecute any alcohol or drug abuse patient.[facility] the event this information is protected by the Federal Confidentiality of Alcohol and Drug Abuse Patient Records regulations: The Federal rules restrict any use of the information to criminally investigate or prosecute any alcohol or drug abuse patient.[facility] Reason for Visit (unrecogniz ed section and content) Reason Comments EMG Instructions Reason Comments New Pain Specialty Diagnoses / Procedures Referred By Janessa harris Referred To Contact Orthopedics / ORTHOPAEDIC SURGERY Diagnoses sprain of left wrist, alin is coming in for seccond opinion, had carple tunnel surgery on this wrist october 02, 2022 Procedures [facility] Laine Granger, [employer] [address] [place] [address] Lucio Mixon MD [address] [place] [address] Referral ID Status Reason Start Date Expiration Date V isits Requested Visits Authorized [id number] Closed Patient Cleared - Admin/Chairm an/Director advise to proceed or did not respond 08/13/2023 08/13/2023 1 1 Specialty Diagnoses / Procedures Referred By Janessa harris Referred To Contact [facility] Diagnoses Sprain of left wrist, sequela Carpal tunnel syndrome of left wrist Procedures EMG(NEURO/NI) NERVE CONDUCTION STUDIES 9-10 STUDIES Ines Coker MD [address] [place] [address] Neurological [place] [address] [place] [address] Referral ID Status Reason Start Date Expiration Date V isits Requested Visits Authorized [id number] Closed Auto-Generate d Referral 09/29/2023 10/29/2023 1 1 Reason Comments EMG- FAXED RESULTS Reason Comments Radio Gen RMP Specialty Diagnoses / Procedures Referred By Contac t Referred To Contact XR IMAGING Diagnoses Pain Procedures XR WRIST GENERAL 3V PA/LAT/OBL LEFT RADEX WRIST COMPLETE MINIMUM 3 VIEWS Lucio Mixon MD [address] [place] [address] [place] [address] Referral ID Status Reason Start Date Expiration Date V isits Requested Visits Authorized [id number] Closed Auto-Generat ed Referral Patient Cleared - Admin/Chairm an/Director advise to proceed or did not respond 08/13/2023 08/13/2023 1 1 Reason Comments Pain 08/13 pain tingling t humb pain constant Follow Up 08/13 pain tingling t humb pain constant Specialty Diagnoses / Procedures Referred By Contac t Referred To Contact XR IMAGING Diagnoses Pain Procedures XR WRIST INJURY 4V PA/LAT/OBL/SCAPH LEFT RADEX WRIST COMPLETE MINIMUM 3 VIEWS Lucio Mixon MD [address] [place] [address] [place] [address] Referral ID Status Reason Start Date Expiration Date V isits Requested Visits Authorized [id number] Closed Auto-Generate d Referral 01/07/2024 01/14/2024 1 1 FOR RECORDS PERTAINING TO PATIENTS [...] BE BASED ON THE PRIMARY CLINICAL RECORDS. [employer] provides no warranty or guarantee of the accuracy or completeness of information in this document.
== END 2024-02-10 08:31 | disposition home or self-care (01) ==
LOC: VC 08:02
PROVIDERS: PCP Radiology Diagnostic Radiology; Visit Provider Radiology Diagnostic Radiology
DX: I83.813 Varicose veins of bilateral lower extremities with pain (principal)
CPT/HCPCS: 36478

== ENCOUNTER 2024-02-17 14:00 | Outpatient (OUT) | payer OTHER, SELFPAY ==
--- NOTE | 2024-02-17 08:47 | V.VEINS.HP ---
Vital Signs 02/17/24 14:22 Height 5 ft 3 in Weight 99 kg BMI 38.7 Varicose Veins Patient in today for follow up ultrasound of left lower extremity following EVLT of left GSV completed on 02/10/24. Carlos Cristobal MD personally performed the services described in this documentation, as scribed by Nel James RDMS in my presence and it is both accurate and complete. Nel Cristobal RDMS, am scribing for, and in the presence of, Dr. Carlos Conde and in the presence of the patient. thigh: bilateral (left > right leg), knee: bilateral, calf: bilateral, ankle: bilateral and funez: bilateral aching, cramping and tender 37 years Worsened in recent months: Yes standing and walking elevating extremities, compression stockings and exercise Reports muscle spasms of leg, fatigue, heaviness, restless legs, edema and leg edema History of lower extremity trauma: No Superficial thrombophlebitis: Yes (DVT to left leg) Family history of varicose veins: yes Has patient had previous lower extremity venous surgery: No Patient has previously received the following treatment(s) for lower extremity varicose veins: Reports none Does patient have a history of : yes Does patient intend to have future pregnancies: no Has patient had lower extremity venous scan with relux testing: No Support hose used: Yes Problems walking or doing physical activity: Yes How does it affect you: often has to rest and elevate legs/feet 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 Nel Cristobal RDMS, am scribing for, and in the presence of, Dr. Carlos Conde and in the presence of the patient. 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 ?I80.01 - Phlebitis and thrombophlebitis of superficial vessels of right lower extremity (ICD-10) Phlebitis and thrombophlebitis of superficial vessels of left lower extremity ?I80.02 - Phlebitis and thrombophlebitis of superficial vessels of left lower extremity (ICD-10) Varicose veins of bilateral lower extremities with pain ?I83.813 - Varicose veins of bilateral lower extremities with pain (ICD-10) Plantar fascial fibromatosis ?M72.2 - Plantar fascial fibromatosis (ICD-10) Contracture, left ankle ?M24.572 - Contracture, left ankle (ICD-10) Vertigo ?R42 - Dizziness and giddiness (ICD-10) Chronic cystitis ?N30.20 - Other chronic cystitis without hematuria (ICD-10) Chronic kidney disease ?N18.9 - Chronic kidney disease, unspecified (ICD-10) Urinary tract infection ?N39.0 - Urinary tract infection, site not specified (ICD-10) COVID-19 (04/16/23) ?U07.1 - COVID-19 (ICD-10) Migraine ?G43.909 - Migraine, unspecified, not intractable, without status migrainosus (ICD-10) S/P extracorporeal shock wave therapy ?Z98.890 - Other specified postprocedural states (ICD-10) Kidney stones ?N20.0 - Calculus of kidney (ICD-10) Seasonal allergies ?J30.2 - Other seasonal allergic rhinitis (ICD-10) GERD (gastroesophageal reflux disease) ?K21.9 - Gastro-esophageal reflux disease without esophagitis (ICD-10) Surgical History (Updated 02/10/24 @ 08:25 by Stefan Hood) Status post laser ablation of incompetent vein ?Z98.890 - Other specified postprocedural states (ICD-10) Status post laser ablation of incompetent vein ?Z98.890 - Other specified postprocedural states (ICD-10) Status post laser ablation of incompetent vein ?Z98.890 - Other specified postprocedural states (ICD-10) History of endometrial ablation ?Z98.890 - Other specified postprocedural states (ICD-10) History of spinal surgery ?Z98.890 - Other specified postprocedural states (ICD-10) History of tonsillectomy ?Z90.89 - Acquired absence of other organs (ICD-10) H/O hand surgery ?Z98.890 - Other specified postprocedural states (ICD-10) History of foot surgery ?Z98.890 - Other specified postprocedural states (ICD-10) History of carpal tunnel release ?Z98.890 - Other specified postprocedural states (ICD-10) Family History (Updated 11/12/23 @ 10:49 by Stefan Hood) Other Family history of diabetes mellitus Family history of hypertension Family history of myocardial infarction Pain due to varicose veins of both lower extremities Social History Within the past year, how often did you have a drink containing alcohol: 2-4 times a month Smoking status: Never smoker Non-prescribed substance use: denies use 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 Highest level of school completed/degree received: high school graduate Meds Home Medications and Allergies Home Medications ?Medication ?Instructions ?Recorded ?Confirmed ?Type cetirizine 10 mg tablet (Zyrtec) 10 mg PO DAILY PRN allergy symptoms 05/19/23 11/12/23 History lansoprazole 30 mg capsule,delayed 30 mg PO DAILY 05/19/23 11/12/23 History release multivitamin (Daily Multi-Vitamin 1 tab PO DAILY 05/19/23 11/12/23 History tablet) ondansetron 4 mg disintegrating 4 mg PO Q8H PRN nausea and 06/04/23 11/12/23 Rx tablet vomiting 5 days #15 tabs tizanidine 2 mg tablet 2 mg PO TID PRN muscle spasticity 06/04/23 11/12/23 Rx 7 days #21 tabs Allergies Allergy/AdvReac Type Severity Reaction Status Date / Time levofloxacin (From Levaquin) Allergy Muscle Pain Verified 06/29/23 14:18 phenobarbital Allergy Unknown Verified 06/29/23 14:18 Sulfa (Sulfonamide Allergy Rash Verified 06/29/23 14:18 Antibiotics) Exam Narrative Exam Narrative: Carlos Cristobal MD personally performed the services described in this documentation, as scribed by Nel James RDMS in my presence and it is both accurate and complete. INel RDMS, am scribing for, and in the presence of, Dr. Carlos Conde and in the presence of the patient. Constitutional Documenting provider has reviewed patient's vital signs: yes Common normals: oriented x3 Nutritional appearance: overweight Cardio Peripheral pulses: dorsalis pedis pulses present Extremity Common normals: normal capillary refill General: edema Right lower extremity: lower leg Right lower leg: inspection and palpation Left lower extremity: lower leg Left lower leg: inspection and palpation Neuro Common normals: oriented x3 Results Imaging Venous US: Radiologist's impression: Heat induced thrombus in left GSV 1.5 cm from SFJ and extends to distal thigh. Carlos Cristobal MD personally performed the services described in this documentation, as scribed by Nel James RDMS in my presence and it is both accurate and complete. INel RDMS, am scribing for, and in the presence of, Dr. Carlos Conde and in the presence of the patient. Assessment and Plan Assessment and Plan (1) Phlebitis and thrombophlebitis of superficial vessels of left lower extremity: Plan Plan is for patient to return for Varithena/microfoam of left leg on 02/26/24. Carlos Cristobal MD personally performed the services described in this documentation, as scribed by Nel James RDMS in my presence and it is both accurate and complete. Nel Cristobal RDMS, am scribing for, and in the presence of, Dr. Carlos Conde and in the presence of the patient.
--- NOTE | 2024-02-17 14:00 | VEIN_ITS ---
Patient Name: KASSANDRA LOPEZ MR#: [id number] : 1965 Exam Date: 02/17/2024 Ordering Doctor: DR CARLOS CONDE M.D. RADIOLOGY REPORT PROCEDURE: FACILITY EST [facility] - OFFICE VISIT FOLLOW UP COMPARISON: [facility] EST LMTD, 01/12/2024. FACILITY EST LMTD, 12/23/2023. PROGRESS NOTES: The patient no significant problems following intravenous laser ablation of the left great saphenous vein. The patient has worn her compression stocking. Patient did not require oral analgesics. Physical exam demonstrates the incision to be sealed. A 2 cm area of bruising is identified along the medial mid thigh likely related to tumescence injection. The left great saphenous vein cannot be palpated likely related to patient body habitus. No erythema or warmth to suggest cellulitis or thrombophlebitis. No active ulceration Review of the ultrasound performed the same day demonstrates occlusive thrombus extending throughout the treated left great saphenous vein with heat induced thrombus 1.5 cm from the saphenofemoral junction. No deep vein thrombus. The patient expressed a desire to proceed with treatment of incompetent varicose veins with micro foam chemical ablation. VEIN/[facility] EST LMTD IMPRESSION: 1. Successful ablation of the left great saphenous vein 2. Persistent incompetent varicose veins. PLAN: Micro foam chemical ablation left leg incompetent varicose veins Nurse notes, history and physical were reviewed and confirmed, see attached forms. The nurse was present throughout the physical exam and consultation Dictated by: Carlos Conde MD on 02/17/2024 at 15:08 Approved by: Carlos Conde MD on 02/17/2024 at 15:10
--- NOTE | 2024-02-17 14:00 | VEIN_ITS ---
Patient Name: KASSANDRA LOPEZ MR#: [id number] : 1965 Exam Date: 02/17/2024 Ordering Doctor: DR CARLOS CONDE M.D. RADIOLOGY REPORT PROCEDURE: VC EXT VENOUS LT LIMITED COMPARISON: VC EXT VENOUS LT LIMITED, 12/23/2023. INDICATIONS: I80.02 - Phlebitis and thrombophlebitis of superficial veins left leg TECHNIQUE: Lower extremity bone scale and Duplex Doppler evaluation of the deep venous system from the inguinal ligament through the calf veins. FINDINGS: REGION: Left lower extremity. THROMBI: Negative for DVT. Heat induced thrombus in left GSV 1.5 cm from SFJ and extends to distal thigh. COMPRESSIBILITY: Non-compressible segments corresponding to thrombus FLOW: Areas of no flow corresponding to thrombus CONCLUSION: Post ablation occlusion of the treated left great saphenous vein with heat induced thrombus 1.5 cm from the saphenofemoral junction. No deep vein thrombus Dictated by: Carlos Conde MD on 02/17/2024 at 14:20 Approved by: Carlos Conde MD on 02/17/2024 at 14:21
[2024-02-17 14:22] VITALS: BMI 38.7
--- OUTSIDE RECORDS SUMMARY | 2024-02-17 14:23 | XMS_ITS | CCD ---
Author Organization [facility] Care Team Providers Care Octave Board Assembler Name Role Phone Shai Lau Primary Care Physician [phone] [address] ., DR DRUMMOND Consulting Unavailable SALMON [...] SKIE, MAX Attending Unavailable SKIEMAX Admitting Unavailable SKIMAX Navas Attending Unavailable SKIE, MAX Attending Unavailable SKIE, MAX Attending Unavailable SKIE, MAX Attending Unavailable Amaris Granger CNPa Unavailable Amaris Granger CNPa Unavailable Hoda SALMON Attending Unavailable Allen Noriega Admitting Unavailable Allen Noriega Attending Unavailable Allen Noriega Referring Unavailable Allen Noriega Admitting Unavailable Allen Noriega Attending Unavailable LUCIO MIXON Attending Unavailable LUCIO MIXON Referring Unavailable INES COKER Referring Unavailable LUCIO MIXON Attending Unavailable LAINE GRANGER Referring Unavailable LUCIO MIXON Referring Unavailable Allergies Allergy Classification Reported Allergen(s) Allergy Type Date of Onset Reaction(s) Facility (8 sources) levoFLOXacin; Translations: [levofloxacin] Drug Allergy 02-22-20 16 .. [facility] (18 sources) PHENobarbital; Translations: [phenobarbital] Drug Allergy 07-07-19 15 Unknown [facility] (7 sources) Sulfonamides (Antibiotic); Translations: [sulfa drugs] Drug allergy RASH [facility] (1 source) benzoin resin Drug Allergy 08-21-19 16 [facility] (1 source) levoFLOXacin Drug Allergy 08-21-19 16 [facility] (1 source) Sulfonamides (Antibiotic) Drug allergy (disorder) 08-21-19 16 [facility] (11 sources) Sulfamethoxazole / Trimethoprim; Translations: [SULFAMETHOXAZOLE-TR IMETHOPRIM] Drug Allergy 07-07-19 15 Rash [facility] Rep[facility] (1 source) Sulfonamides (Antibiotic); Translations: [SULFA (SULFONAMIDE ANTIBIOTICS)] Propensity to adverse reactions to drug (disorder) 12-20-19 15 [facility] Repository Medications Current Medications Medication Drug Class(es) [...] day(s), # 14 cap(s), Refills(s) 0, Pharmacy: [facility]/pharmacy #[id number], 161, cm, 05/13/21 9:04:00 EST, Height/Length Dosing, 91.5, kg, 05/13/21 9:04:00 EST, Weight Dosing Start Date: 07/02/21 Stop Date: 07/09/21 Status: Ordered fluconazole 150 mg oral tablet (2 sources) Azole Antifungal Start: 07-02-2021 End: 07-09-2021 Diflucan 150 mg Tab See Instructions, 1 tab po q72 hrs x 3 doses, then dc, # 3 tab(s), Refills(s) 0, Pharmacy: [facility]/pharmacy #[id number], 161, cm, 05/13/21 [...] 0, Prophylaxis Start Date: 01/11/16 Status: Ordered [place]-3 Fatty Acids-Vitamin E (FISH OIL) 1,000 mg cap (9 sources) [place]-3 Fatty Acids-Vitamin E (FISH OIL) 1,000 mg cap Take 1 capsule by mouth. Active [place]-3 Fatty Ac ids-Vitamin E (FISH OIL) 1,000 [...] Test Name Value Interpretation Reference Range Facility CNOVon 01-14-2024 CNOV Office Visit (OTMBHT ) ALYSSA LOPEZ ([id number]) 1965 F Date Time Provider Department 01/14/24 12:40 PM LUCIO MIXON During your visit today, we recorded the following information about you: Lucio Mixon MD 02/09/2024 8:08 AM Signed Lucio Mixon MD Department of Orthopaedics Orthopaedic Surgery [facility] [address] [facility] [address] Dept: [phone] Dept January 14, 2024 CHIEF COMPLAINT: Pain [...] without relief. 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 ASSESSMENT: M18.12 [...] studies of the median nerve and normal bijavy-bk-hxyek comparative studies. - No electrodiagnostic evidence of [...] ONE DAILY MULTIVITAMIN ORAL Take by mouth. [place]-3 Fatty Acids-Vitamin E (FISH OIL) 1,000 mg cap Take 1 capsule by mouth. amitriptyline (ELAVIL) 10 mg tablet Take 10 mg by mouth daily at bedtime. metoclopramide HCl (REGLAN) 5 mg tablet Take 5 mg by mouth daily at bedtime. No current facility-administered medications for this visit. Allergies: Bactrim [Sulfamethoxazole-Tri methoprim] and Phenobarbital ROS: General (negative for fatigue, malaise, weight loss/gain) HEENT (negative for headache, earache, recent vision changes, sinus pain, sore throat) Respiratory (no recent shortness of breath, hemoptysis) CV (negative for chest tightness, palpitations) Musculoskeletal (see HPI) Psych (no depression, anxiety) Lucio Mixon MD Referring Provider: LUCIO MIXON [[id number]] Allergies As of Date: 01/14/2024 Noted Allergy Reaction BACTRIM (SULFAMETHOXAZOLE-TRI METH*07/06/2014 2 - Rash PHENOBARBITAL 07/06/2014 16 - Unknown Date Reviewed: 01/14/2024 Reviewed by: Radha Carlson OCCA - Fully Assessed Reason for Visit: Pain [78] Cmt: 5/10 pain tingling thumb pain constant Follow Up [171] Cmt: 5/10 pain tingling thumb pain constant Primary Visit Diagnosis:Primary osteoarthritis of first carpometacarpal joint of left hand [M18.12] Prescriptions as of 02/09/2024 - ONE DAILY MULTIVITAMIN ORAL Take by mouth. - [place]-3 Fatty Acids-Vitamin E (FISH OIL) 1,000 mg cap Take 1 capsule by mouth. - amitriptyline (ELAVIL) 10 mg tablet Take 10 mg by mouth daily at bedtime. - metoclopramide HCl (REGLAN) 5 mg tablet Take 5 mg by mouth daily at bedtime. Problem List As Of Date: 01/14/2024 (None) Letter Text Encounter Status:Closed by LUCIO MIXON on 02/09/24 [facility] Reference Lab Notificationon 01-01-2024 Results Report See Ref Lab Report Normal [facility] Comment on above: Performed By: #### 2 [id number] #### [facility] [address] [place] [address] US Pelvis Non-OB Completeon 01-01-2024 US Pelvis [...] Transabdominal Ultrasound Performed Transvaginal Ultrasound Performed Normal [facility] US Transvaginal Non-OBon US Transvaginal Non-OB Exam Date/Time: 12/29/2023 17:34 EDT Reason for Exam: N95.0 Report Review ultrasound pelvis non-OB complete for report of the US transvaginal non-OB. Ordering Provider: Allen Noriega FINAL REPORT Dictated: 01/01/2024 2:11 pm Rodríguez Schultz MD Signed (Electronic Signature): 01/01/2024 2:11 pm Signed by: Rodríguez Schultz MD Transcribed by: OLIVIA Technologist: LAWRENCE Normal [facility] TEST IN QUESTION - CYTOLOGYo n 12-29-2023 CONTAINER TYPE: TP Normal [facility] Comment on above: Order Comment: FASTI NG: UNKNOWN Performed By: #### 3 [id number] #### [facility] [address], [address] [place] [id number] Real Estate Closer: Dmitri Maradiaga MD QUESTION/PROBLEM Normal [facility] Comment on above: Order Comment: FASTI NG: UNKNOWN Result Comment: PER CESILIA Salcedo AT CLIENT OFFICE, RUN TEST CODE [id number]. Performed By: #### 3 [id number] #### [facility] [address], [address] [place] [address] Real Estate Closer: Dmitri Maradiaga MD Reference Lab Notificationon 12-28-2023 Ref [facility] Normal [facility] Comment on above: Performed By: #### 2 [id number] #### [facility] [address] [place] [address] [facility] 09-29-2023 CNPN Telephone (EMGMN) ALYSSA LOPEZ ([id number]) 1965 F Date Time Provider Department 09/29/23 INES COKER EMGMN During your visit today, we recorded the following information about you: Neema Campos 09/29/2023 2:15 PM Signed Results from EMG performed on 09/29/2023 were faxed to Laine Granger at fax number on 09/29/2023. Fax confirmation received. Allergies As of Date: 09/29/2023 Noted Allergy Reaction BACTRIM (SULFAMETHOXAZOLE-TRI METH*07/06/2014 2 - Rash PHENOBARBITAL 07/06/2014 16 - Unknown Date Reviewed: 08/13/2023 Reviewed by: Nargis Stiles MA - Fully Assessed Reason for Visit: EMG- FAXED RESULTS [Other] Prescriptions as of 09/29/2023 - ONE DAILY MULTIVITAMIN ORAL Take by mouth. - [place]-3 Fatty Acids-Vitamin E (FISH OIL) 1,000 mg cap Take 1 capsule by mouth. - amitriptyline (ELAVIL) 10 mg tablet Take 10 mg by mouth daily at bedtime. - metoclopramide HCl (REGLAN) 5 mg tablet Take 5 mg by mouth daily at bedtime. Problem List As Of Date: 09/29/2023 (None) Encounter Status:Closed by NEEMA CAMPOS on 09/29/23 [facility] EMG(NEURO/NI)on 09-29-2023 Results can be seen in attached scanned documents. If you are a patient reviewing this test result, call the doctor who ordered the test with any questions. [facility] 08-28-2023 CNPN Telephone (EMGMN) ALYSSA LOPEZ ([id number]) 1965 F Date Time Provider Department 08/28/23 [...] of Date: 08/28/2023 Noted Allergy Reaction BACTRIM (SULFAMETHOXAZOLE-TRI METH*07/06/2014 2 - Rash PHENOBARBITAL 07/06/2014 16 - Unknown Date Reviewed: 08/13/2023 Reviewed by: Nargis Stiles MA - Fully Assessed Reason for Visit: EMG Instructions [Other] Prescriptions as of 08/28/2023 - ONE DAILY MULTIVITAMIN ORAL Take by mouth. - [place]-3 Fatty Acids-Vitamin E (FISH OIL) 1,000 mg cap Take 1 capsule by mouth. - amitriptyline (ELAVIL) 10 mg tablet Take 10 mg by mouth daily at bedtime. - metoclopramide HCl (REGLAN) 5 mg tablet Take 5 mg by mouth daily at bedtime. Problem List As Of Date: 08/28/2023 (None) Encounter Status:Closed by MANDY PREICADO on 08/28/23 [facility] ([id number]) 1965 F Date Time Provider Department 08/20/23 LUCIO MIXON During your visit today, we recorded the following information about you: Karly Leija 08/20/2023 9:18 AM Signed Name of Caller: Nayeli at [employer] Relationship to patient: Last visit in this department: 08/13/2023 Reason for Call: Other : Nayeli calling from [facility] to get office notes and any test results if applicable for the 08/13/23 visit. Please fax to [phone] Callback number: [phone] Fax Number (if necessary): [phone] Additional info if needed (Prior Auth #, Claim #, etc?): N/A Valentina Bella PA-C 08/24/2023 9:[address] Mixon's note still not completed, I did call Nayeli at [employer]. We did discuss that the patient needs to find their old nerve conduction study and get a new nerve conduction study (Study can be request by POR) and then should follow-up with Dr. Mixon to discuss both. Allergies As of Date: 08/20/2023 Noted Allergy Reaction BACTRIM (SULFAMETHOXAZOLE-TRI METH*07/06/2014 2 - Rash PHENOBARBITAL 07/06/2014 16 - Unknown Date Reviewed: 08/13/2023 Reviewed by: Nargis Stiles MA - Fully Assessed Prescriptions as of 08/24/2023 - ONE DAILY MULTIVITAMIN ORAL Take by mouth. - [place]-3 Fatty Acids-Vitamin E (FISH OIL) 1,000 mg cap Take 1 capsule by mouth. - amitriptyline (ELAVIL) 10 mg tablet Take 10 mg by mouth daily at bedtime. - metoclopramide HCl (REGLAN) 5 mg tablet Take 5 mg by mouth daily at bedtime. Problem List As Of Date: 08/20/2023 (None) Encounter Status:Closed by VALENTINA LINDSEY on 08/24/23 [facility] CNOVon 08-13-2023 CNOV Office Visit (OTMBHT ) ALYSSA LOPEZ ([id number]) 1965 F Date Time Provider Department 08/13/23 9:20 AM LUCIO MIXON During your visit today, we recorded the following information about you: Lucio Mixon MD 09/08/2023 4:53 PM Signed Lucio Mixon MD Department of Orthopaedics Orthopaedic Surgery [facility] [address] [facility] [address] Dept: [phone] Dept August 13, 2023 CHIEF COMPLAINT: New [...] her origional EMG test. SHe'll have her [facility] get an c9 for [...] ONE DAILY MULTIVITAMIN ORAL Take by mouth. [place]-3 Fatty Acids-Vitamin E (FISH OIL) 1,000 mg cap Take 1 capsule by mouth. amitriptyline (ELAVIL) 10 mg tablet Take 10 mg by mouth daily at bedtime. metoclopramide HCl (REGLAN) 5 mg tablet Take 5 mg by mouth daily at bedtime. No current facility-administered medications for this visit. Allergies: Bactrim [Sulfamethoxazole-Tri methoprim] and Phenobarbital ROS: General (negative for fatigue, [...] Granger CNP [address] [facility] [address] Lucio Mixon MD Referring Provider: LAINE GRANGER [[id number]] Allergies As of Date: 08/13/2023 Noted Allergy Reaction BACTRIM (SULFAMETHOXAZOLE-TRI METH*07/06/2014 2 - Rash PHENOBARBITAL 07/06/2014 16 - Unknown Date Reviewed: 08/13/2023 Reviewed by: Nargis Stiles MA - Fully Assessed Reason for Visit: New [497165] Pain [78] Primary Visit Diagnosis:Numbness and tingling in left hand [R20.0, R20.2] Prescriptions as of 09/08/2023 - ONE DAILY MULTIVITAMIN ORAL Take by mouth. - [place]-3 Fatty Acids-Vitamin E (FISH OIL) 1,000 mg cap Take 1 capsule by mouth. - amitriptyline (ELAVIL) 10 mg tablet Take 10 mg by mouth da (more content not included)... [facility] XR WRIST 3V PA/LAT/OBL LTon 08-13-2023 [...] IMPRESSION: REMOTE POSTSURGICAL AND DEGENERATIVE CHANGES DESCRIBED Dump Grader: KASSI Transcribe Date/Time: Aug 13 2023 10:48A Dictated by : SARITA WILEY MD This examination was interpreted and the report reviewed and electronically signed by: SARITA WILEY MD on Aug 13 2023 10:50AM EST [id number] [facility] XR Wrist - left PA and Later al and Obliqueon 08-13-2023 IMPRESSION: REMOTE POSTSURGICAL AND DEGENERATIVE CHANGES DESCRIBED Dump Grader: KASSI Transcribe Date/Time: Aug 13 2023 10:48A [...] soft tissue swelling. DIVISION OF RADIOLOGY [facility] * * *Final Report* * [...] IMPRESSION: REMOTE POSTSURGICAL AND DEGENERATIVE CHANGES DESCRIBED Dump Grader: KASSI Transcribe Date/Time: Aug 13 2023 10:48A Dictated by : SARITA WILEY MD This examination was interpreted and the report reviewed and electronically signed by: SARITA WILEY MD on Aug 13 2023 10:50AM EST [facility] Radiology Study observation (narrative) [facility] XR Wrist - left PA and Later al and ObliqueOrdered By: Ccf Provider on 08-13-2023 [facility] ic Provider Letteron 04-23-2023 Provider Letter April 23, 2023 ALYSSA LOPEZ [address] [place] [address] : 1965 Dear Alyssa , We have [...] [facility] [address], [place] [address] [facility] Follow-Upon 04-22-2023 Follow-Up [id number] Alyssa Lopez 1965 Provider Department Center 04/22/2023 MAX MUSTAFA [facility] Family History Family history unknown: Yes Level of Service:17414 MA OFFICE/OUTPT VISIT,PROCEDURE ONLY Reason for Visit and Comments: Follow-up [125570] - Constant tingling - thumb goes numb when driving or holding something for a bit and the numbness also goes into the middle finger as well. Pain [136] - Constant tingling - thumb goes numb when driving or holding something for a bit and the numbness also goes into the middle finger as well. [facility] Follow-Upon 02-10-2023 Follow-Up [id number] Alyssa Lopez 1965 Date Provider Department Center 02/10/2023 MAX MUSTAFA MP ORTHO [facility]THO Family History Family history unknown: Yes Level of Service:07097 MA OFFICE/OUTPATIENT ESTABLISHED LOW MDM 20-29 MIN Reason for Visit and Comments: Follow-up [785520] [facility] Follow-Upon 11-26-2022 Follow-Up [id number] Alyssa Lopez 1965 F Date Provider Department Center 11/26/2022 MAX MUSTAFA MP Family History Family history unknown: Yes Level of Service:30109 MA OFFICE/OUTPATIENT ESTABLISHED LOW MDM 20-29 MIN Reason for Visit and Comments: Pain [136] Follow-up [549456] [facility] Office Visiton 10-15-2022 Follow-up visit [id number] Alyssa Lopez 1965 F Date Provider Department Center 10/15/2022 MAX MUSTAFA MP Family History Family history unknown: Yes Level of Service:36681 MA POSTOP FOLLOW UP VISIT RELATED TO ORIGINAL PX (GC) Reason for Visit and Comments: Post-op [483] Follow-up [497014] [facility] 36on 10-02-2022 36 I spoke to the patient to see how she is doing after her recent surgery with Dr Kowalski. Ms Lopez stated she is doing well and that her pain is manageable with medications. She has a follow up with Dr Kowalski on October 15 at 120. She had no other questions or concerns. [facility] HPon 10-01-2022 HP History Of Present Illness [...] Allergies Levofloxacin, Phenobarbital, Sulfa (sulfonamide antibiotics), and Sulfamethoxazole-trim ethoprim Medications Medications Prior to Admission Medication Sig Dispense Refill Last Dose aspirin-acetaminophen -caffeine (Excedrin Migraine) 250-250-65 mg tablet Take 1 [...] Active Problems: Hyperlipidemia L C TR Normal [facility] OPNOTEon 10-01-2022 OPNOTE Operative Note Patient: Guillermina Lopez Date of Surgery: 10/01/2022 : 1965 Pre-operative Diagnosis: Carpal Tunnel Syndrome left Hand Post-operative Diagnosis: same Operation: Carpal Tunnel Release, left (04859) Surgeon: Max Kowalski MD Sane Nurse: Drew Chacon MD Staff: Child Nutrition Assistant: Mayte Chery RN Scrub Person: Cayetano Ace [...] PACU Condition: stable Max Kowalski MD Normal [facility] POCT GLUCOSE METER UNSOLICIT ED RESULTSon 10-01-2022 Glucose [Mass/Vol] 91 mg/dL Normal 70-105 [facility] Comment on above: Order Comment: Waive d Testing in the ED is performed under the ED CLIA certificate #[id number]. Result Comment: epaw low Performed By: #### L [id number] ####[facility] (BEAKER)[address] [place] [address] [id number] 09-24-2022 [id number] NPO AFTER MIDNIGHT. MUST HAVE A SURGICAL SUPERVISOR TO TAKE YOU HOME AND SOMEONE TO STAY FOR 24 HOURS AFTER SURGERY. NO JEWELRY OR VALUABLES. HOLD THE MEDS WE SPOKE ABOUT: VITAMINS STARTING 09-27. TAKE THE MEDS WE SPOKE ABOUT WITH A SIP OF WATER DOS: PREVACID, ADIPEX. BRING INSURANCE CARD AND PHOTO ID AND MED LIST. Normal [facility] CITRATE URINE 24HRon 023 Citric Acid, U, 24hr 363 mg/24 hr Normal 320-1240 [facility] Comment on above: Result Comment: This test was developed and its performance characteristics determined by [facility]. It has not been cleared or approved by the Food and Drug Administration. Performed By: #### C ITRATU #### [facility] [address] [place] [address] Dr. Prabhu Lopez Citric Acid, Urine 338 mg/L Normal Undefined [facility] Comment on above: Performed By: #### C ITRATU #### [facility] [address] [address] [address] Prabhu Lopez OXALATE 24HR URINEon 023 Oxalates, Urine 15 mg/L Normal Undefined The [facility] Comment on above: Performed By: #### O X24HR #### [facility] [address] [place] [address] Dr. Prabhu Lopez Oxalates, Urine 24hr 16 mg/24 hr Normal 4-31 [facility] Comment on above: Performed By: #### O X24HR #### [facility] [address] [address] [address] Prabhu Lopez MAGNESIUM 24HR URINEon 08-15 Magnesium 24hr Urine 94.6 mg/24 hr Normal 12.0-293.0 [facility] Comment on above: Performed By: #### U JESI, BMP #### [facility] [address] [place] [address] Dr. Prabhu Lopez Magnesium UR 8.8 mg/dL Normal Not Estab. The [facility] Comment on above: Performed By: #### U JESI, BMP #### [facility] [address] [place] [address] Dr. Prabhu Lopez PHOSPHORUS 24HR URINEon 08-04 Phosphorus, Urine 48.2 mg/dL Normal Not Estab. The [facility] Comment on above: Performed By: #### P HOS 24 #### [facility] [address] [place] [address] Dr. Prabhu Lopez Phosphorus, Urine 24hr 518 mg/24 hr Normal 261-1078 [facility] Comment on above: Performed By: #### P HOS 24 #### [facility] [address] [place] [address] Dr. Prabhu Lopez URIC ACID 24 HR URINEon 08-04 Uric Acid, Urine 29.6 mg/dL Normal Not Estab. The [facility] Comment on above: Performed By: #### U JESI, BMP #### [facility] [address] [place] [address] Dr. Prabhu Lopez Uric Acid, Urine 24hr 318.2 mg/24 hr Normal 173.7-902.1 The [facility] Comment on above: Performed By: #### U JESI, BMP #### [facility] [address] [place] [address] Dr. Prabhu Lopez CALCIUM 24 HR URINEon 2022 CALC, 24 HR UR 76.3 mg/24 hr Critically low 100.0-300.0 Th e [facility] Comment on above: Performed By: #### C [id number] #### [facility] [address] [place] [address] Dr. Prabhu Lopez UR CALCIUM 7.1 mg/dL Normal 5.1-21.0 [facility] Comment on above: Performed By: #### C ALC24U #### [facility] [address] [place] [address] Dr. Prabhu Lopez UR TOT VOL 1075 ml/24 HR Normal [facility] Comment on above: Performed By: #### C ALC24U #### [facility] [address] [place] [address] Dr. Prabhu Lopez Performed By: #### N A24U, [id number] #### [facility] [address] [place] [address] Dr. Prabhu Lopez CBC AUTO DIFFon 08-14-2022 BASO # 0.1 103/ul Normal 0.0-0.1 [facility] Comment on above: Performed By: #### U JESI, BMP #### [facility] [address] [place] [address] Dr. Prabhu Lopez Basophils/100 WBC (Bld) 1.3 % Normal 0.2-2.0 [facility] Comment on above: Performed By: #### U JESI, BMP #### [facility] [address] [place] [address] Dr. Prabhu Lopez EO # 0.3 103/ul Normal 0.0-0.7 [facility] Comment on above: Performed By: #### U JESI, BMP #### [facility] [address] [place] [address] Dr. Prabhu Lopez Eosinophils/100 WBC (Bld) 5.2 % Normal 0.9-7.0 [facility] Comment on above: Performed By: #### U JESI, BMP #### [facility] [address] [place] [address] Dr. Prabhu Lopez Erythrocyte distribution width (RBC) [Ratio] 12.9 % Normal 11.0-15.0 [facility] Comment on above: Performed By: #### U JESI, BMP #### [facility] [address] [place] [address] Dr. Prabhu Lopez Hematocrit (Bld) [Volume fraction] 42.7 % Normal 36.0-48.0 [facility] Comment on above: Performed By: #### U JESI, BMP #### [facility] [address] [address] [address] Prabhu Lopez Hemoglobin (Bld) [Mass/Vol] 13.4 g/dL Normal 12.0-16.0 [facility] Comment on above: Performed By: #### U JESI, BMP #### [facility] [address] [address] [address] Prabhu Lopez IG # 0.02 10e3/ul Normal 0.00-0.03 The [facility] Comment on above: Performed By: #### U JESI, BMP #### [facility] [address] [place] [address] Dr. Prabhu Lopez IG % 0.4 % Normal 0.0-0.5 [facility] Comment on above: Performed By: #### U JESI, BMP #### [facility] [address] [place] [address] Dr. Prabhu Lopez LYMPH # 2.0 103/ul Normal 1.2-3.8 The [facility] Comment on above: Performed By: #### U JESI, BMP #### [facility] [address] [place] [address] Dr. Prabhu Lopez Lymphocytes/100 WBC (Bld) 41.5 % Normal 20.5-60.0 [facility] Comment on above: Performed By: #### U JESI, BMP #### [facility] [facility] [address] [place] [address] Dr. Prabhu Lopez MANUAL DIFF REQ NO Normal [facility] Comment on above: Performed By: #### U JESI, BMP #### [facility] [address] [place] [address] Dr. Prabhu Lopez MCH (RBC) [Entitic mass] 28.7 pg Normal 26.7-34.0 [facility] Comment on above: Performed By: #### U JESI, BMP #### [facility] [address] [place] [address] Dr. Prabhu Lopez MCHC (RBC) [Mass/Vol] 31.4 g/dL Normal 29.9-35.2 [facility] Comment on above: Performed By: #### U JESI, BMP #### [facility] [address] [address] [address] Prabhu Lopez MCV (RBC) [Entitic vol] 91.4 fL Normal 81.0-99.0 [facility] Comment on above: Performed By: #### U JESI, BMP #### [facility] [address] [place] [address] Dr. Prabhu Lopez MONO # 0.4 103/ul Normal 0.3-0.8 [facility] Comment on above: Performed By: #### U JESI, BMP #### [facility] [address] [place] [address] Dr. Prabhu Lopez Monocytes/100 WBC (Bld) 8.3 % Normal 1.7-12.0 [facility] Comment on above: Performed By: #### U JESI, BMP #### [facility] [address] [place] [address] Dr. Prabhu Lopez NEUT # 2.1 103/ul Normal 1.4-6.5 [facility] Comment on above: Performed By: #### U JESI, BMP #### [facility] [address] [place] [address] Dr. Prabhu Lopez Neutrophils/100 WBC (Bld) 43.3 % Normal 43.0-75.0 [facility] Comment on above: Performed By: #### U JESI, BMP #### [facility] [address] [place] [address] Dr. Prabhu Lopez Platelet mean volume (Bld) [Entitic vol] 11.7 fL Normal 9.5-13.5 [facility] Comment on above: Performed By: #### U JESI, BMP #### [facility] [address] [place] [address] Dr. Prabhu Lopez PLT 237 103/ul Normal 150-450 [facility] Comment on above: Performed By: #### U JESI, BMP #### [facility] [address] [place] [address] Dr. Prabhu Lopez RBC 4.67 106/ul Normal 4.20-5.40 [facility] Comment on above: Performed By: #### U JESI, BMP #### [facility] [address] [place] [address] Dr. Prabhu Lopez WBC 4.8 103/ul Normal 4.0-11.0 [facility] Comment on above: Performed By: #### U JESI, BMP #### [facility] [address] [place] [address] Dr. Prabhu Lopez CREA 24 HR URINEon 3 CREA, 24 HR UR 875.48 mg/24 hr Normal 800.00-1,8 00. 00 [facility] Comment on above: Performed By: #### N A24U, [id number] #### [facility] [address] [place] [address] Dr. Prabhu Lopez URINE CREAT 81.44 mg/dL Normal 20.00-300.00 [facility] Comment on above: Performed By: #### N A24U, [id number] #### [facility] [address] [place] [address] Dr. Prabhu Lopez FREE THYROXINE INDEX T7on FTI 2.34 Normal 1.30-4.50 [facility] Comment on above: Performed By: #### U JESI, BMP #### [facility] [address] [place] [address] Dr. Prabhu Lopez T3U 33.0 % Normal 30.0-39.0 [facility] Comment on above: Performed By: #### U JESI, BMP #### [facility] [address] [place] [address] Dr. Prabhu Lopez T4 [Mass/Vol] 7.10 ug/dL Normal 4.80-13.90 [facility] Comment on above: Performed By: #### U JESI, BMP #### [facility] [address] [place] [address] Dr. Prabhu Lopez GLYCOHEMOGLOBIN A1Con 2022 ADA RECOMMENDATION SEE BELOW Normal [facility] Comment on above: Result Comment: ADA RECOMMENDED LIMIT 4.0 - 6.0 ADA THERAPEUTIC TARGET < 7.0 ACTION SUGGESTED > 7.0 Performed By: #### U JESI, BMP #### [facility] [address] [address] [address] Prabhu Lopez Glucose [Mass/Vol] 123 mg/dL Normal [facility] Comment on above: Performed By: #### U JESI, BMP #### [facility] [address] [address] [address] Prabhu Lopez HbA1c (Bld) [Mass fraction] 5.9 % Normal 4.5-6.2 [facility] Comment on above: Performed By: #### U JESI, BMP #### [facility] [address] [address] [address] Prabhu Lopez LIPID PROFILEon 08-14-2022 CHOL-HDL RATIO NORM SEE BELOW Normal [facility] Comment on above: Result Comment: 3.3 - 4.4 LOW RISK 4.4 - 7.1 AVERAGE RISK 7.1 - 11.0 MODERATE RISK >11.0 HIGH RISK Performed By: #### U JESI, BMP #### [facility] [address] [place] [address] Dr. Prabhu Lopez Cholesterol [Mass/Vol] 255 mg/dL Critically high <=200 [facility] Comment on above: Performed By: #### U JESI, BMP #### [facility] [address] [address] [address] Prabhu Lopez Cholesterol in HDL [Mass/Vol] 80 mg/dL Critically high 40-60 [facility] Comment on above: Performed By: #### U JESI, BMP #### [facility] [address] [address] [address] Prabhu Lopez Cholesterol in LDL [Mass/Vol] 156.6 mg/dL Normal [facility] Comment on above: Performed By: #### U JESI, BMP #### [facility] [address] [address] [address] Prabhu Lopez Cholesterol.total/C holesterol in HDL [Mass ratio] 3.2 {ratio} Normal [facility] Comment on above: Performed By: #### U JESI, BMP #### [facility] [address] [address] [address] Prabhu Lopez HDL NORMAL > or = 60 mg/dl - LO W CARDIOVASCULAR RISK <40 mg/dl - HIGH CARDIOVASCULAR RISK Normal [facility] Comment on above: Performed By: #### U JESI, BMP #### [facility] [address] [address] [address] Prabhu Lopez LDL CALC NORMAL SEE BELOW Normal [facility] Comment on above: Result Comment: <100 mg/dl OPTIMAL 100 - 129 mg/dl NEAR OR ABOVE OPTIMAL 130 - 159 mg/dl BORDERLINE HIGH 160 - 189 mg/dl HIGH >190 mg/dl VERY HIGH Performed By: #### U JESI, BMP #### [facility] [address] [address] [address] Prabhu Lopez Triglyceride [Mass/Vol] 92 mg/dL Normal <=150 [facility] Comment on above: Performed By: #### U JESI, BMP #### [facility] [address] [address] [address] Prabhu Lopez VLDL CALC 18.4 mg/dL Normal [facility] Comment on above: Performed By: #### U JESI, BMP #### [facility] [address] [address] [address] Prabhu Lopez PROF 14(COMP METB)on 023 Albumin [Mass/Vol] 3.9 g/dL Normal 3.4-5.0 [facility] Comment on above: Performed By: #### U JESI, BMP #### [facility] [address] [address] [address] Prabhu Lopez Albumin/Globulin [Mass ratio] 0.8 {ratio} Normal [facility] Comment on above: Performed By: #### U JESI, BMP #### [facility] [address] [address] [address] Prabhu Lopez ALP [Catalytic activity/Vol] 74 U/L Normal 46-116 [facility] Comment on above: Performed By: #### U JESI, BMP #### [facility] [address] [address] [address] Prabhu Lopez ALT [Catalytic activity/Vol] 29 U/L Normal 14-59 [facility] Comment on above: Performed By: #### U JESI, BMP #### [facility] [address] [address] [address] Prabhu Lopez Anion gap [Moles/Vol] 10.9 mmol/L Normal [facility] Comment on above: Performed By: #### U JESI, BMP #### [facility] [address] [address] [address] Prabhu Lopez AST [Catalytic activity/Vol] 22 U/L Normal 15-37 [facility] Comment on above: Performed By: #### U JESI, BMP #### [facility] [address] [address] [address] Prabhu Lopez Bilirubin [Mass/Vol] 0.7 mg/dL Normal 0.2-1.0 [facility] Comment on above: Performed By: #### U JESI, BMP #### [facility] [address] [address] [address] Prabhu Lopez Calcium [Mass/Vol] 8.9 mg/dL Normal 8.5-10.1 [facility] Comment on above: Performed By: #### U JESI, BMP #### [facility] [address] [address] [address] Prabhu Lopez Chloride [Moles/Vol] 106 mmol/L Normal 98-107 [facility] Comment on above: Performed By: #### U JESI, BMP #### [facility] [address] [address] [address] Prabhu Lopez CO2 [Moles/Vol] 30.1 mmol/L Normal 21.0-32.0 [facility] Comment on above: Performed By: #### U JESI, BMP #### [facility] [address] [address] [address] Prabhu Lopez Creatinine [Mass/Vol] 0.94 mg/dL Normal 0.55-1.02 [facility] Comment on above: Performed By: #### U JESI, BMP #### [facility] [address] [address] [address] Prabhu Lopez EGFR-AF BRUNEIAN >60 Normal >=60 [facility] Comment on above: Performed By: #### U JESI, BMP #### [facility] [address] [address] [address] Prabhu Lopez EGFR-NON AF BRUNEIAN >60 Normal >=60 [facility] Comment on above: Performed By: #### U JESI, BMP #### [facility] [address] [address] [address] Prabhu Lopez Globulin (S) [Mass/Vol] 4.8 g/dL Normal [facility] Comment on above: Performed By: #### U JESI, BMP #### [facility] [address] [address] [address] Prabhu Lopez Glucose [Mass/Vol] 96 mg/dL Normal 74-106 [facility] Comment on above: Performed By: #### U JESI, BMP #### [facility] [address] [address] [address] Prabhu Lopez Potassium [Moles/Vol] 4.0 mmol/L Normal 3.5-5.1 [facility] Comment on above: Performed By: #### U JESI, BMP #### [facility] [address] [address] [address] Prabhu Lopez Protein [Mass/Vol] 8.7 g/dL Critically high 6.4-8.2 [facility] Comment on above: Performed By: #### U JESI, BMP #### [facility] [address] [place] [address] Dr. Prabhu Lopez Sodium [Moles/Vol] 143 mmol/L Normal 136-145 [facility] Comment on above: Performed By: #### U JESI, BMP #### [facility] [address] [address] [address] Prabhu Lopez Urea nitrogen [Mass/Vol] 13.0 mg/dL Normal 7.0-18.0 [facility] Comment on above: Performed By: #### U JESI, BMP #### [facility] [address] [address] [address] Prabhu Lopze Urea nitrogen/Creatinine [Mass ratio] 13.8 mg/mg Normal [facility] Comment on above: Performed By: #### U JESI, BMP #### [facility] [address] [place] [address] Dr. Prabhu Lopez PTH INTACTon 08-14-2022 PTH, Intact 17 pg/mL Normal 15-65 [facility] Comment on above: Performed By: #### U JESI, BMP #### [facility] [address] [place] [address] Dr. Prabhu Lopez SODIUM 24 HR URINEon 023 NA, 24 HR UR 111 mmol/24 hr Normal 40-220 [facility] Comment on above: Performed By: #### N A24U, [id number] #### [facility] [address] [place] [address] Dr. Prabhu Lopez Sodium (U) [Moles/Vol] 103 mmol/L Critically high 30-90 [facility] Comment on above: Performed By: #### N A24U, [id number] #### [facility] [address] [place] [address] Dr. Prabhu Lopez TSHon 08-14-2022 TSH 2.531 uIU/mL Normal 0.358-3.740 [facility] Comment on above: Performed By: #### U JESI, BMP #### [facility] [address] [place] [address] Dr. Prabhu Lopez PROF CHEM 8 (BAS METB)on Anion gap [Moles/Vol] 8.9 mmol/L Normal [facility] Comment on above: Performed By: #### U JESI, BMP #### [facility] [address] [place] [address] Dr. Prabhu Lopez Calcium [Mass/Vol] 9.3 mg/dL Normal 8.5-10.1 [facility] Comment on above: Performed By: #### U JESI, BMP #### [facility] [address] [place] [address] Dr. Prabhu Lopez Chloride [Moles/Vol] 108 mmol/L Critically high 98-107 [facility] Comment on above: Performed By: #### U JESI, BMP #### [facility] [address] [address] [address] Prabhu Lopez CO2 [Moles/Vol] 28.5 mmol/L Normal 21.0-32.0 [facility] Comment on above: Performed By: #### U JESI, BMP #### [facility] [address] [address] [address] Prabhu Lopez Creatinine [Mass/Vol] 1.08 mg/dL Critically high 0.55-1.02 [facility] Comment on above: Performed By: #### U JESI, BMP #### [facility] [address] [address] [address] Prabhu Lopez EGFR-AF BRUNEIAN >60 Normal >=60 [facility] Comment on above: Performed By: #### U JESI, BMP #### [facility] [address] [address] [address] Prabhu Lopez EGFR-NON AF BRUNEIAN 52 mL/min/1.73m2 Critically low >=60 [facility] Comment on above: Performed By: #### U JESI, BMP #### [facility] [address] [address] [address] Prabhu Lopez Glucose [Mass/Vol] 94 mg/dL Normal 74-106 [facility] Comment on above: Performed By: #### U JESI, BMP #### [facility] [address] [address] [address] Prabhu Lopez Potassium [Moles/Vol] 3.4 mmol/L Critically low 3.5-5.1 [facility] Comment on above: Performed By: #### U JESI, BMP #### [facility] [address] [address] [address] Prabhu Lopez Sodium [Moles/Vol] 142 mmol/L Normal 136-145 [facility] Comment on above: Performed By: #### U JESI, BMP #### [facility] [address] [address] [address] Prabhu Lopez Urea nitrogen [Mass/Vol] 17.0 mg/dL Normal 7.0-18.0 [facility] Comment on above: Performed By: #### U JESI, BMP #### [facility] [address] [place], [place] [address] Dr. Prabhu Lopez Urea nitrogen/Creatinine [Mass ratio] 15.7 mg/mg Normal [facility] Comment on above: Performed By: #### U JESI, BMP #### [facility] [address] [place], [place] [address] Dr. Prabhu Lopez URIC ACID SERUMon 08-12-2022 Urate [Mass/Vol] 4.8 mg/dL Normal 2.6-6.0 [facility] Comment on above: Performed By: #### U JESI, BMP #### [facility] [address] [place], [place] [address] Dr. Prabhu Lopez 36on 08-04-2022 36 Surgery was approved . I called pt to schedule. Pt did not answer LMOV to return call. Normal [facility] Prep for Procedureon 023 Prep for Procedure [id number] Tiffany Lopez 1965 F Date Provider Department Center 08/04/2022 PATRICIA MAK MP [facility] No family history on file Normal [facility] XR KUB 1 VIEWon 05-23-2022 XR KUB [...] [facility] Covid-[facility] (CVDTB)on 11-04 SARS-CoV-2 (COVID-19) RNA [...] for this test is supported by the Rehab Department Manager of Health and Human Service's declaration that [...] used). Performed By: #### C VDTB #### [facility] [address] [place] [address] Dr. Prabhu Lopez Covid-19 PCR ([facility])on SARS-CoV-2 (COVID-19) RNA TANGELA+probe Ql (Unsp [...] for this test is supported by the Rehab Department Manager of Health and Human Service's (HHS's) declaration [...] SARS-CoV-2. Performed By: #### C VDTBH #### [facility] [address] [place] [address] Dr. Prabhu Lopez B-Type Natriuretic Peptideon 02-12-2021 Natriuretic peptide B (Bld) [Mass/Vol] 36.0 pg/mL Normal 5-100 [facility] Comment on above: Result Comment: PERF ORMED BY: [place] [address] PATHOLOGIST BUS DRIVER NICANOR BALTAZAR M.D. Performed By: #### C BC, PTT, CKMB, BMP, CK, BNP, PT, HS TROP #### [address] Basic Metabolic Panelon Calcium [Mass/Vol] 8.9 mg/dL Normal 8.2-10.2 [facility] Comment on above: Performed By: #### C BC, PTT, CKMB, BMP, CK, BNP, PT, HS TROP #### [address] Chloride [Moles/Vol] 104 mmol/L Normal 95-114 [facility] Comment on above: Performed By: #### C BC, PTT, CKMB, BMP, CK, BNP, PT, HS TROP #### [address] CO2 [Moles/Vol] 24.0 mmol/L Normal 22.0-30.0 [facility] Comment on above: Performed By: #### C BC, PTT, CKMB, BMP, CK, BNP, PT, HS TROP #### [address] Creatinine [Mass/Vol] 1.06 mg/dL High 0.44-1.03 [facility] Comment on above: Performed By: #### C BC, PTT, CKMB, BMP, CK, BNP, PT, HS TROP #### [address] Creatinine Clr Calc Pharmacy 64.12 Normal [facility] Comment on above: Result Comment: PERF ORMED BY: [place] [address] PATHOLOGIST BUS DRIVER NICANOR BALTAZAR M.D. Performed By: #### C BC, PTT, CKMB, BMP, CK, BNP, PT, HS TROP #### [facility] [address] Estimated GFR ( Najma > 60 Normal [facility] Comment on above: Result Comment: GFR estimated reference range: According to KDOQI guidelines, <60 ml/min/1.73m2 is sufficient to diagnose a patient with chronic kidney disease. Performed By: #### C BC, PTT, CKMB, BMP, CK, BNP, PT, HS TROP #### [facility] [address] Estimated GFR (Non- Am 54 Normal [facility] Comment on above: Performed By: #### C BC, PTT, CKMB, BMP, CK, BNP, PT, HS TROP #### [facility] [address] Glucose [Mass/Vol] 106 mg/dL High 70-100 [facility] Comment on above: Result Comment: [place] Glucose Reference Range is dependent on time and content of last meal. Glucose of more than 200 mg/dL in a nonstressed, ambulatory subject supports the diagnosis of Diabetes Mellitus. ADA recommended reference range Performed By: #### C BC, PTT, CKMB, BMP, CK, BNP, PT, HS TROP #### [address] Potassium [Moles/Vol] 3.3 mmol/L Low 3.5-5.1 [facility] Comment on above: Performed By: #### C BC, PTT, CKMB, BMP, CK, BNP, PT, HS TROP #### [facility] [address] Sodium [Moles/Vol] 138 mmol/L Normal 136-146 [facility] Comment on above: Performed By: #### C BC, PTT, CKMB, BMP, CK, BNP, PT, HS TROP #### [facility] [address] Urea nitrogen [Mass/Vol] 11 mg/dL Normal 9-23 [facility] Comment on above: Performed By: #### C BC, PTT, CKMB, BMP, CK, BNP, PT, HS TROP #### [address] Complete Blood Count Auto Di ffon 02-12-2021 Basophils (Bld) [#/Vol] 0.1 10*3/uL Normal 0.0-0.2 [facility] Comment on above: Result Comment: PERF ORMED BY: [place] [address] PATHOLOG[address] BUS DRIVER NICANOR BALTAZAR M.D. Performed By: #### C BC, PTT, CKMB, BMP, CK, BNP, PT, HS TROP #### [address] Basophils/100 WBC (Bld) 1.2 % Normal . [facility] Comment on above: Performed By: #### C BC, PTT, CKMB, BMP, CK, BNP, PT, HS TROP #### [address] Eosinophils (Bld) [#/Vol] 0.2 10*3/uL Normal 0.0-0.45 [facility] Comment on above: Performed By: #### C BC, PTT, CKMB, BMP, CK, BNP, PT, HS TROP #### [address] Eosinophils/100 WBC (Bld) 3.2 % Normal . [facility] Comment on above: Performed By: #### C BC, PTT, CKMB, BMP, CK, BNP, PT, HS TROP #### [address] Erythrocyte distribution width (RBC) [Ratio] 13.5 % Normal 11.9-15.3 [facility] Comment on above: Performed By: #### C BC, PTT, CKMB, BMP, CK, BNP, PT, HS TROP #### [address] Hematocrit (Bld) [Volume fraction] 36.8 % Normal 34.0-46.4 [facility] Comment on above: Performed By: #### C BC, PTT, CKMB, BMP, CK, BNP, PT, HS TROP #### [address] Hemoglobin (Bld) [Mass/Vol] 12.2 g/dL Normal 11.8-15.4 [facility] Comment on above: Performed By: #### C BC, PTT, CKMB, BMP, CK, BNP, PT, HS TROP #### [address] Lymphocytes (Bld) [#/Vol] 2.3 10*3/uL Normal 1.00-4.8 [facility] Comment on above: Performed By: #### C BC, PTT, CKMB, BMP, CK, BNP, PT, HS TROP #### [address] Lymphocytes/100 WBC (Bld) 37.1 % Normal . [facility] Comment on above: Performed By: #### C BC, PTT, CKMB, BMP, CK, BNP, PT, HS TROP #### [address] MCH (RBC) [Entitic mass] 29.5 pg Normal 24.7-34.3 [facility] Comment on above: Performed By: #### C BC, PTT, CKMB, BMP, CK, BNP, PT, HS TROP #### [address] MCV (RBC) [Entitic vol] 89.0 fL Normal 80-100 [facility] Comment on above: Performed By: #### C BC, PTT, CKMB, BMP, CK, BNP, PT, HS TROP #### [address] Mean Corpuscular HGB Conc 33.2 g/dL Normal 32.0-35.0 [facility] Comment on above: Performed By: #### C BC, PTT, CKMB, BMP, CK, BNP, PT, HS TROP #### [address] [address] [place] Monocytes (Bld) [#/Vol] 0.5 10*3/uL Normal 0.0-0.8 [facility] Comment on above: Performed By: #### C BC, PTT, CKMB, BMP, CK, BNP, PT, HS TROP #### [address] Monocytes/100 WBC (Bld) 8.7 % Normal . [facility] Comment on above: Performed By: #### C BC, PTT, CKMB, BMP, CK, BNP, PT, HS TROP #### [address] Neutrophils (Bld) [#/Vol] 3.1 10*3/uL Normal 1.8-7.7 [facility] Comment on above: Performed By: #### C BC, PTT, CKMB, BMP, CK, BNP, PT, HS TROP #### [address] Neutrophils/100 WBC (Bld) 49.8 % Normal . [facility] Comment on above: Performed By: #### C BC, PTT, CKMB, BMP, CK, BNP, PT, HS TROP #### [address] Nucleated RBC/100 WBC (Bld) [Ratio] 0.0 % Normal 0-0.5 [facility] Comment on above: Performed By: #### C BC, PTT, CKMB, BMP, CK, BNP, PT, HS TROP #### [address] Platelet mean volume (Bld) [Entitic vol] 9.7 fL Normal 6.3-10.7 [facility] Comment on above: Performed By: #### C BC, PTT, CKMB, BMP, CK, BNP, PT, HS TROP #### [address] Platelets (Bld) [#/Vol] 219 10*3/uL Normal 150-450 [facility] Comment on above: Performed By: #### C BC, PTT, CKMB, BMP, CK, BNP, PT, HS TROP #### [facility] [address] RBC (Bld) [#/Vol] 4.13 10*6/uL Normal 3.60-5.00 [facility] Comment on above: Performed By: #### C BC, PTT, CKMB, BMP, CK, BNP, PT, HS TROP #### [facility] [address] WBC (Bld) [#/Vol] 6.3 10*3/uL Normal 4.5-11.0 [facility] Comment on above: Performed By: #### C BC, PTT, CKMB, BMP, CK, BNP, PT, HS TROP #### [address] Creatine Kinaseon 02-12-2021 CK [Catalytic activity/Vol] 178 U/L Normal 22-269 [facility] Comment on above: Performed By: #### C BC, PTT, CKMB, BMP, CK, BNP, PT, HS TROP #### [address] Creatinine Kinase MBon 02-12 CK.MB [Mass/Vol] 2.5 ng/mL Normal 0.6-6.3 [facility] Comment on above: Performed By: #### C BC, PTT, CKMB, BMP, CK, BNP, PT, HS TROP #### [address] CKMB Relative Index 1.4 % Normal 0.00-2.50 [facility] Comment on above: Performed By: #### C BC, PTT, CKMB, BMP, CK, BNP, PT, HS TROP #### [address] Partial Thromboplastin Timeo n 02-12-2021 aPTT Coag (Bld) [Time] 29.3 s Normal 25.1-36.5 [facility] Comment on above: Result Comment: PERF ORMED BY: [place] [address] PATHOLOGIST BUS DRIVER NICANOR BALTAZAR M.D. Performed By: #### C BC, PTT, CKMB, BMP, CK, BNP, PT, HS TROP #### [address] Prothrombin Time INRon 02-12 INR Coag (PPP) [Relative time] 1.0 {INR} Normal [facility] Comment on above: Result Comment: INR [...] BMP, CK, BNP, PT, HS TROP #### [address] PT Coag (PPP) [Time] 11.5 s Normal 9.0-12.9 [facility] Comment on above: Performed By: #### C BC, PTT, CKMB, BMP, CK, BNP, PT, HS TROP #### [address] Troponin I High Sensitivityo n 02-12-2021 Troponin I High Sensitivity 5 pg/mL Normal 0-15 [facility] Comment on above: Result Comment: PERF ORMED BY: [place] [address] PATHOLOGIST BUS DRIVER NICANOR BALTAZAR M.D. Performed By: #### C BC, PTT, CKMB, BMP, CK, BNP, PT, HS TROP #### [address] XR chest 2V*on 02-12-2021 XR chest 2V* [facility] Main [place] [address] [place] [address] XRay Report Signed Patient: Alyssa Lopez MR#: [id number] : 1965 Acct:[id number] Age/Sex: 55 / F ADM Date: 02/11/21 Loc: ER Room: Type: [facility] ER Attending Dr: Ordering Provider: [...] Reid Graves M.D.02/12/2021 9:18 AM Dictation Location: [place] [address] Transcribed By: [facility] 02/12/21917 Dictated By: Reid Graves DO 02/12/21914 Signed By: 02/12/21917 Normal [facility] ECG 12 lead ECGon 02-11-2021 ECG 12 lead ECG [facility] Main [place] [address] [place] [address] Electrocardiograph Report Signed Patient: Alyssa Lopez MR#: [id number] : 1965 Acct:[id number] Age/Sex: 55 / F ADM Date: 02/11/21 Loc: ER Room: Type: [facility] ER Attending Dr: Ordering Provider: Stefan [...] ECGs available Confirmed by Stefan Carolina DO ([id number]) on 02/11/2021 11:41:46 PM Referred By: Electronically Signed By:Stefan Carolina DO Transcribed By: MUS Signed By Stefan Carolina DO 02/[address] [facility] Vital Signs Date Time Vital Sign Value Performing Clinician Homa wattsloren 05-26-2022 08:49-0500 Blood Pressure Location Hoda SALMON [facility] 05-26-2022 08:49-0500 Diastolic blood pressure 74 mm[Hg] Hodaallison SALMON [facility] 05-26-2022 08:49-0500 Heart rate 70 /min Hodaallison SALMON [facility] 05-26-2022 08:49-0500 Respiratory rate 16 /min Hoda SALMON [facility] 05-26-2022 08:49-0500 Systolic blood pressure 128 mm[Hg] Hoda SALMON [facility] Encounters Encounter Date Encounter Type Care Provider Facility Start: 01-14-2024 End: 01-14-2024 ambulatory LUCIO MIXON Facility:[facility] Start: 01-14-2024 End: 01-14-2024 Patient encounter procedure Lucio Mixon MD Work Phone: Orthopaedic Surgery [facility] Comment on above: Primary osteoarthrit is of first carpometacarpal joint of left hand (Primary Dx) Start: 12-29-2023 End: 12-29-2023 ambulatory Allen Noriega Facility:[facility] Start: 12-29-2023 End: 12-29-2023 Patient encounter procedure Allen Noriega [facility] Start: 12-24-2023 End: 12-24-2023 ambulatory Allen Noriega Facility:[facility] Start: 12-24-2023 End: 12-24-2023 Lab Drop off Allen Noriega [facility] Start: 09-29-2023 Telephone encounter Ines Coker MD Work Phone: Neurology Comment on above: EMG- FAXED RESULTS Start: 09-29-2023 End: 09-29-2023 ambulatory INES COKER Neurology EMG [facility] Start: 09-29-2023 End: 09-29-2023 Patient encounter procedure Emg 2 Neur [facility] (Max Weight 400) Neurology EMG [facility] Start: 08-28-2023 Telephone encounter Ines Coker MD Work Phone: Neurology Comment on above: EMG Instructions Start: 08-25-2023 Orders Only Laine pimentel CNP Work Phone: Neurology Comment on above: Sprain of left wrist , sequela (Primary Dx); Carpal tunnel syndrome of left wrist Start: 08-20-2023 Telephone encounter Lucio prasad MD Work Phone: Orthopaedic Surgery [facility] Start: 08-13-2023 End: 08-13-2023 Patient encounter procedure Lucio Mixon MD Work Phone: Orthopaedic Surgery [facility] Comment on above: Numbness and tinglin g in left hand (Primary Dx) Start: 08-13-2023 End: 08-13-2023 ambulatory LUCIO MIXON Facility:[facility] Start: 08-13-2023 End: 08-13-2023 Subsequent hospital visit by physician [facility] Comment on above: Pain [R52] Start: 07-31-2023 Orders Only Lucio Mixon MD Work Phone: Referring Physician Comment on above: Pain (Primary Dx) Start: 07-06-2023 End: 07-06-2023 ambulatory Hoda SALMON Facility:[facility] Start: 07-06-2023 End: 07-06-2023 Patient encounter procedure Hoda SALMON [facility] Start: 06-30-2023 ambulatory [facility] Start: 04-22-2023 ambulatory [facility] Start: 02-10-2023 ambulatory [facility] Start: 11-26-2022 ambulatory [facility] Start: 10-15-2022 End: 10-15-2022 ambulatory [facility] Start: 10-01-2022 End: 10-01-2022 ambulatory [facility] Start: 08-15-2022 Encounter for genera l adult medical examination without abnormal findings DR SHAI LAU . [facility] Start: 08-14-2022 End: 08-15-[address] SHAI LAU . Facility:[facility] Start: 08-14-2022 End: 08-15-2022 Encounter for general adult medical examination without abnormal findings DR SHAI LAU . Facility:[facility] Start: 08-12-2022 End: 08-13-[address] HODA SALMON . Facility:[facility] Start: 05-26-2022 End: 05-26-2022 Patient encounter procedure Hoda SALMON [facility] Start: 05-22-2022 End: 05-23-[address] HODA SALMON . Facility:[facility] Start: 11-15-2021 End: 11-15-[address] SHAI LAU . Facility:[facility] Start: 11-12-2021 End: 11-12-[address] SHAI LAU . Facility:[facility] Start: 07-02-2021 End: 07-02-2021 Lab Drop off EMERITA PRINCE [facility] Start: 07-02-2021 End: 07-02-2021 Patient encounter procedure Toni Carrera Jr. [facility] Procedures Date Procedure Procedure Detail Performing Clinician [...] 12-06-2023 Covid-19 Vaccine () Covid-19 Vaccine () [facility] Start: 12-06-2023 Covid-19 Vaccine () Covid-19 Vaccine () [facility] Start: 12-06-2023 Influenza vaccination [facility] Start: 09-29-2023 End: 09-29-2023 ambulatory 09/29/2023 9:25 AM EDT Procedure Neurology EMG [facility] [address] [place] [address] EMG STANDARD Neurology EMG [facility] Comment on above: EMG STANDARD Start: 08-13-2023 End: 08-13-2023 Patient encounter procedure Xray [facility] Comment on above: sprain of left wrist , kwesinoah is coming in for seccond opinion, had carple tunnel surgery on this wrist october 02, 2022 Start: 04-06-2023 Behavioral Health Screening Behavioral Health Screening [facility] Start: 12-05-2022 Covid-19 Vaccine () Covid-19 Vaccine () [facility] Start: 12-05-2022 Covid-19 Vaccine ( season) Covid-19 Vaccine ( season) [facility] Start: 06-09-2015 Shingrix Vaccine (1 of 2) Shingrix Vaccine (1 of 2) [facility] Start: 2010 Diabetes Screening Diabetes Screenin g [facility] Start: 2010 Lipid panel Lipid Screening [facility] Start: 2010 Screening for malign ant neoplasm of colon [facility] Start: 2005 Screening for malign ant neoplasm of breast Mammogram Screening [facility] Start: 06-09-1995 Screening for malign ant neoplasm of cervix HPV Testing [facility] Start: 1986 Screening for malign ant neoplasm of cervix [facility] Start: 1984 Hepatitis B Vaccine (1 of 3 - 19+ 3-dose series) Hepatitis B Vaccine (1 of 3 - 19+ 3-dose series) [facility] Start: 1984 Urine microalbumin profile DTaP,Tdap,Td Vaccine (1 - Tdap) [facility] Start: 06-09-1983 Anxiety Screening Anxiety Screening [facility] Start: 06-09-1983 Depression Screening Depression Scre ening [facility] Start: 06-09-1983 Hepatitis C screening Hepatitis C Sc reening [facility] Start: 06-09-1983 HIV screening HIV Screening [facility] End: 08-24-2024 EMG(NEURO/NI) EMG(NEURO/NI) EMG Routine Sprain of left wrist, sequela Carpal tunnel syndrome of left wrist 1 Occurrences starting 08/25/2023 until 08/24/2024 [facility] Work Phone: Comment on above: 1 Occurrences starti ng 08/25/2023 until 08/24/2024 End: 08-29-2024 XR Wrist - left 4 Views XR WRIST INJURY 4V PA/LAT/OBL/SCAPH LEFT Radiology Routine Pain 1 Occurrences starting 07/31/2023 until 08/29/2024 [facility] Comment on above: 1 Occurrences starti ng 07/31/2023 until 08/29/2024 End: 08-29-2024 XR Wrist - left PA and Lateral and Oblique XR WRIST GENERAL 3V PA/LAT/OBL LEFT Radiology Routine Pain 1 Occurrences starting 07/31/2023 until 08/29/2024 [facility] Work Phone: Comment on above: 1 Occurrences starti ng 07/31/2023 until 08/29/2024 Immunizations Immunization Date Immunization Notes Care Provider Mihai bradshaw 02-26-2022 influenza virus vaccine, unspecified formulation Lucio Mixon MD Work Phone: [facility] 08-08-2020 SARS-CoV-2 (COVID-19 ) Ad26 vaccine, recombinant Toni Carrera Jr. [facility] 07-18-2020 SARS-CoV-2 (COVID-19 ) Ad26 vaccine, recombinant Toni Carrera Jr. [facility] Payers Date Payer Category Payer Private Health Insurance [facility] CHOICE PLUS [id number] 2023-Present [phone] [address] [address] [place] [address] PPO [id number] 2019 Unknown [id number] 2019 Unknown [id number] 2019 Unknown [id number] 1965 Unknown [id number] .[id number] 1965 Unknown [id number] .2.593 1965 Unknown [id number] [id number] .2.593 1965 Unknown [id number] [id number] .2.593 1965 Unknown [id number] [id number] .2.593 1965 Unknown [id number] [id number] .2.593 1965 Unknown [id number] [id number] .2.727 1965 Unknown [id number] [id number] .2.727 1965 Unknown [id number] .2.727 1959 Unknown [id number] Social History Date Type Detail Facility Start: 07-06-2014 End: 05-13-2021 Tobacco smoking status Never smoked tobacco (finding) [facility] Start: 08-13-2023 End: 01-14-2024 Sex Assigned At Female [facility] Start: 07-28-2014 End: 01-14-2024 Alcohol intake Current drinker of alcohol (finding) [facility] Start: 1965 Sex Assigned At [facility] Start: 08-13-2023 End: 01-14-2024 History of Social function [facility] National Score (1-10 0), lower number is lower risk 46 [facility] Functional Status Date Assessment Result Facility 05-26-2022 Functional Status N/A [facility] Clinical Notes 05-26-2022 to 01-14-2024 Lucio Mixon MD - 01/14/2024 12:53 PM EDTTelephone Encounter - Neema Campos - 09/29/2023 2:14 PM EDTTelephone Encounter - Neema Campos - 09/29/2023 2:14 PM EDTRadiology Note Date & Type Note Facility 01-14-2024 Note HNO ID: [id number] Author: LUCIO MIXON MD Service: ? Author Type: Physician Type: Progress Notes Filed: 02/09/2024 08:08 Note Text: Lucio Mixon MD Department of Orthopaedics Orthopaedic Surgery [facility] [address] [facility] [address] Dept: [phone] Dept January 14, 2024 CHIEF COMPLAINT: Pain [...] without relief. 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 ASSESSMENT: M18.12 [...] studies of the median nerve and normal cwjost-ea-jrjsp comparative studies. - No electrodiagnostic evidence of [...] ONE DAILY MULTIVITAMIN ORAL Take by mouth. [place]-3 Fatty Acids-Vitamin E (FISH OIL) 1,000 mg [...] Psych (no depression, anxiety) Lucio Mixon MD [facility] 01-14-2024 History of Present illness Narrative Lucio Mixon MD Department of Orthopaedics Orthopaedic Surgery [facility] [address] [facility] [address] Dept: [phone] Dept January 14, 2024 CHIEF COMPLAINT: Pain [...] without relief. 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 ASSESSMENT: M18.12 [...] studies of the median nerve and normal pzqyaw-xn-jhzoc comparative studies. - No electrodiagnostic evidence of [...] ONE DAILY MULTIVITAMIN ORAL Take by mouth. [place]-3 Fatty Acids-Vitamin E (FISH OIL) 1,000 mg [...] Lucio Mixon MD documented in this encounter [facility] 09-29-2023 Telephone encounter Note Results from EMG performed on 09/29/2023 were faxed to Laine Granger at fax number on 09/29/2023. Fax confirmation received. [facility] 09-29-2023 Miscellaneous Notes Results from EMG performed on 09/29/2023 were faxed to Laine Granger at fax number on 09/29/2023. Fax confirmation received. documented in this encounter [facility] 09-29-2023 History of Present illness Narrative [...] MD Neuromuscular Medicine (NM) Staff [facility], [facility] documented in this encounter [facility] 09-29-2023 Note HNO ID: [id number] Author: RAMSEY NDIAYE MD Service: ? Author [...] MD Neuromuscular Medicine (NM) Staff [facility], [facility] 08-28-2023 Telephone encounter Note Spoke with [...] testing. Patient expressed understanding with these instructions. [facility] 08-28-2023 Miscellaneous Notes Spoke with Alyssa [...] with these instructions. documented in this encounter [facility] 08-24-[address] Mixon's note still not completed, I did call Nayeli at [employer]. We did discuss that the patient needs to find their old nerve conduction study and get a new nerve conduction study (Study can be request by POR) and then should follow-up with Dr. Mixon to discuss both. [facility] Work Phone: 08-24-[address] [...] for the 08/13/23 visit. Please fax to [phone] Callback number: [phone] Fax Number (if necessary): [phone] Additional info if needed (Prior Auth #, Claim #, etc ): N/A Karly Leija documented in this encounter [facility] 08-20-2023 Telephone encounter Note Name of Caller: Nayeli at [employer] Relationship to patient: Last visit in this department: 08/13/2023 Reason for Call: Other : Nayeli calling from [facility] to get office notes and any test results if applicable for the 08/13/23 visit. Please fax to [phone] Callback number: [phone] Fax Number (if necessary): [phone] Additional info if needed (Prior Auth #, Claim #, etc ): N/A Karly Leija [facility] 08-13-2023 Note HNO ID: [id number] Author: LUCIO MIXON MD Service: ? Author Type: Physician Type: Progress Notes Filed: 09/08/2023 16:53 Note Text: Lucio Mixon MD Department of Orthopaedics Orthopaedic Surgery [facility] [address] [facility] [address] Dept: [phone] Dept August 13, 2023 CHIEF COMPLAINT: New [...] her origional EMG test. SHe'll have her [facility] get an c9 for [...] ONE DAILY MULTIVITAMIN ORAL Take by mouth. [place]-3 Fatty Acids-Vitamin E (FISH OIL) 1,000 mg [...] physician via US mail. Laine Granger CNP [facility] [address] [facility] [address] Lucio Mixon MD [facility] 08-13-2023 History of Present illness Narrative Lucio Mixon MD Department of Orthopaedics Orthopaedic Surgery [facility] [address] [facility] [address] Dept: [phone] Dept August 13, 2023 CHIEF COMPLAINT: New [...] her origional EMG test. SHe'll have her [facility] get an c9 for [...] ONE DAILY MULTIVITAMIN ORAL Take by mouth. [place]-3 Fatty Acids-Vitamin E (FISH OIL) 1,000 mg [...] physician via US mail. Laine Granger CNP [facility] [address] [facility] [address] Lucio Mixon MD documented in this encounter [facility] 08-13-2023 History of Present illness Narrative [...] PATIENT PRESENTS WITH AN IMPLANTABLE OR ATTACHED PRESS PIPE INSPECTOR: No RADIOLOGY DEPARTMENT: General X-ray: Exam(s) Completed: Upper Extremity X-Ray(s): Wrist, left PERIPHERAL IV DATA: Not applicable SIGNED BY: RT Brian(Gabriel) August 13, 2023 9:24 AM documented in this encounter [facility] 08-13-2023 Note HNO ID: [id number] Author: CONSTANCE VERMA RT(Gabriel) Service: ? Author [...] PATIENT PRESENTS WITH AN IMPLANTABLE OR ATTACHED PRESS PIPE INSPECTOR: No RADIOLOGY DEPARTMENT: General X-ray: Exam(s) Completed: Upper Extremity X-Ray(s): Wrist, left PERIPHERAL IV DATA: Not applicable SIGNED BY: RT Brian(R) August 13, 2023 9:24 AM [facility] 04-22-2023 Note Patient ID: Alyssa Lopez [...] to verify the correct patient, procedure, equipment, field support technician and site/side marked as required. [facility] 11-07-2023 Note Orthopedic Surgery Subjective 10/01/2022 Carpal Tunnel [...] disease) Kidney stone Migraines Objective Left Hand: Goffefymjs-evvl-jwijid scar from carpal tunnel incision. Thumb: normal A1 winnie and AROM, Index finger: normal A1 winnie and AROM, Long finger: normal A1 winnie and AROM, Ring finger: normal A1 winnie and AROM, and Small finger: normal A1 winnie and AROM Strength: dental appliance fixer 4+/5, thumb 4+/5, interossei 5/5 Sensation: intact [...] and see her back at that time. [facility] 11-26-2022 Note Attestation signed by Max Kowalski [...] disease) Kidney stone Migraines Objective Left Hand: Navclltomt-xmtj-jpcsqa scar from carpal tunnel incision. Thumb: normal A1 winnie and AROM, Index finger: normal A1 winnie and AROM, Long finger: normal A1 winnie and AROM, Ring finger: normal A1 winnie and AROM, and Small finger: normal A1 winnie and AROM Strength: dental appliance fixer 5/5, thumb 5/5, interossei 5/5 Sensation: intact [...] SHERIFF MD Orthopedic Surgery, PGY-2 Ortho Pager [phone] 11/26/22 3:14 PM [facility] 10-15-2022 Note Attestation signed by Max Kowalski [...] SHERIFF MD Orthopedic Surgery, PGY-2 Ortho Pager [phone] 10/15/22 1:20 PM [facility] 10-01-2022 Note Patient: Guillermina curry Procedure Summary Date: 10/01/22 Room / Location: [facility] OR [address] [place] [address] [facility]ISC OR Anesthesia Start: 0834 Anesthesia Stop: 09 Procedure: CARPAL TUNNEL RELEASE (Left: Hand) Diagnosis: Carpal tunnel syndrome on left (Carpal tunnel syndrome on left [G56.02]) Surgeons: Max Kowalski MD Responsible Provider: Lynne Enriquez MD Anesthesia Type: MAC ASA Status: 2 Anesthesia Type: MAC Vitals Value Taken Time BP 134/68 10/01/22 0930 Temp 36.1 ???C (97 ???F) 10/01/22899 Pulse 43 10/01/22929 Resp 16 10/01/22 0930 SpO2 97 % 10/01/22929 Anesthesia Post Evaluation Patient location during evaluation: PACU Patient participation: complete - patient participated Level of consciousness: awake and alert Pain score: 0 Pain management: adequate Airway patency: patent Cardiovascular status: acceptable Respiratory status: acceptable Hydration status: acceptable Patient is hemodynamically stable and is able to be discharged from PACU per anesthesia protocol. No notable events documented. [facility] 10-01-2022 Note Patient: Guillermina curry Procedure Information Date/Time: 10/01/22829 Procedure: CARPAL TUNNEL RELEASE (Left: Hand) Location: [address] OR Surgeons: Max Kowalski MD Relevant [...] Plan discussed with attending. Additional Equipment Requests [facility] 05-26-2022 Hospital Discharge instructions Follow Up Care 05/26/2022 09:33:22 With:JEFFREY AVELAR, Hoda Rios, URL Address: [facility] [address] [place] [address] [phone] When: Unknown [facility] [place] 05-26-2022 Hospital Discharge instructions Patient [...] potassium each day. These include: ?Avocado. ?Banana. ?Eagle, prune, carrot, or tomato juice. ?Baked potato. [...] Casseroles. Pizza. Lasagna. Frozen meals. Potato chips. Estonian fries. Summary You can reduce your risk [...] 07/18/2011 Document Revised: 07/13/2019 Document Reviewed: 03/03/2017 [employer] Patient Education 2020 tsumobi. Follow Up Care 05/13/2021 09:33:00 With:Hoda SALMON MD, URL Address: [facility] [address] [place] [address]- When: Unknown [facility] Evaluation + Plan note Future Appointments Appointment Date:05/26/2022 08:45:00 AM Scheduled Provider:Hoda SALMON MD Location:[facility] Appointment Type:URO Office Visit [facility] Evaluation + Plan note Future Appointments Appointment Date:05/26/2022 08:45:00 AM Scheduled Provider:Hoda SALMON MD Location:[facility] Appointment Type:URO Office Visit Diagnostic Tests PendingUrine Culture 07/02/21 [facility] Evaluation + Plan note Future Appointments Appointment Date:05/29/2023 08:00:00 AM Scheduled Provider:Hoda SALMON MD Location:[facility] Appointment Type:URO Office Visit [facility] Evaluation + Plan note Future Appointments Appointment Date:12/30/2023 12:00:00 PM Scheduled Provider: [facility] Type:US Abdominal/Pelvis () Diagnostic Tests PendingReference Lab Notification 12/24/23 Future Scheduled TestsUS Pelvis Non-OB Complete 12/30/23US Transvaginal Non-OB 12/30/23 [facility] Evaluation note Diagnosis Pain- Primary Generalized [facility] Sprain of left wrist, sequela- Primary Carpal tunnel syndrome of left wrist Carpal tunnel syndrome [facility] Diagnosis Numbness and tingling in left hand- Primary Disturbance of skin sensation [facility] Sprain of left wrist, sequela Carpal tunnel syndrome of left wrist Carpal tunnel syndrome [facility] Pain Generalized pain [facility] Diagnosis Primary osteoarthritis of first carpometacarpal joint of left hand- Primary Primary localized osteoarthrosis, hand [facility] N[facility] No data available for this section [facility] Hospital Discharge instructions No data available for this section [facility] progress note No data available for this section [facility] reason for referral (narrative)* Diagnostic Procedure Only (Routine) - Pending Review Specialty Diagnoses / Procedures Referred By Contac t Referred To Contact XR IMAGING Diagnoses Pain Procedures XR WRIST INJURY 4V PA/LAT/OBL/SCAPH LEFT RADEX WRIST COMPLETE MINIMUM 3 VIEWS Lucio Mixon MD [address] [place] [address] Xr Imaging [facility]95 Referral ID Status Reason Start Date Expiration Date Visits Requested Visits Authorized [id number] Pending Review Auto-Generat ed Referral 07/31/2023 08/29/2024 1 1 * Diagnostic Procedure Only (Routine) - Authorized Specialty Diagnoses / Procedures Referred By Contac t Referred To Contact XR IMAGING Diagnoses Pain Procedures XR WRIST GENERAL 3V PA/LAT/OBL LEFT RADEX WRIST COMPLETE MINIMUM 3 VIEWS Lucio Mixon MD [address] [place] [address] Xr Imaging [facility] Referral ID Status Reason Start Date Expiration Date Visits Requested Visits Authorized [id number] Authorized Auto-Generat ed Referral 07/31/2023 08/29/2024 1 1 [facility] for referral (narrative)* Outpatient Procedure (Routine) - Pending Review Specialty Diagnoses / Procedures Referred By Contac t Referred To Contact [facility] Diagnoses Sprain of left wrist, sequela Carpal tunnel syndrome of left wrist Procedures EMG(NEURO/NI) NERVE CONDUCTION STUDIES 9-10 STUDIES Ines Coker MD [address] [place] [address] [facility] [address] [place], [place] [id number] Referral ID Status Reason Start Date Expiration Date Visits Requested Visits Authorized [id number] Pending Review Auto-Generat ed Referral 08/25/2023 08/24/2024 1 1 [facility] Summary Purpose Family History No Family [...] Lucio Mixon MD [address] [place] [address] [place] [id number] Referral ID Status Reason Start Date Expiration Date V isits Requested Visits Authorized [id number] Closed Auto-Generat ed Referral Patient Cleared - Admin/Chairm an/Director advise to proceed or did not respond 08/13/2023 08/13/2023 1 1 Additional Source Comments INFORMATION SOURCE (unrecogn ized section and content) DATE CREATED AUTHOR 05/29/2021 [facility] DATE CREATED AUTHOR AUTHOR'S ORGANIZ ATION 08/21/2022 [facility] DATE CREATED AUTHOR AUTHOR'S ORGANIZ ATION 07/01/2023 [facility] DATE CREATED AUTHOR AUTHOR'S ORGANIZ ATION 12/31/2023 [facility] DATE CREATED AUTHOR AUTHOR'S ORGANIZ ATION 01/02/2024 [facility] DATE CREATED AUTHOR AUTHOR'S ORGANIZ ATION 01/05/2024 [facility] [place] [facility] DATE CREATED AUTHOR AUTHOR'S ORGANIZ ATION 02/10/2024 [facility] Patient Care team informatio n (unrecognized section and content) Octave Board Assembler Relationship Specialty Start Date End Date Laine Granger CNP [address] [place] [address] Family Medicine 07/24/23 Octave Board Assembler Relationship Specialty Start Date End Date Laine Granger LYLY [address] [facility] [place] [address] Referring Family Medicine 07/24/23 Octave Board Assembler Relationship Specialty Start Date End Date Laine Garnger LYLY [address] [facility] [place] [address] Referring Family Medicine 07/24/23 Octave Board Assembler Relationship Specialty Start Date End Date Laine Granger LYLY [address] [place] [address] Referring Family Medicine 07/24/23 Octave Board Assembler Relationship Specialty Start Date End Date Lawrence GrangeristinaLYLY [address] [facility] [place] [address] Referring Family Medicine 07/24/23 Octave Board Assembler Relationship Specialty Start Date End Date Laine GrangerLYLY [address] [facility] [place] [address] Referring Family Medicine 07/24/23 Octave Board Assembler Relationship Specialty Start Date End Date Amaris GrangerLYLY kay [address] [place] [address] Referring Family Medicine 07/24/23 Source Comments (unrecognize d section and content) In the event this informatio n is protected by the Federal Confidentiality of Alcohol and Drug Abuse Patient Records regulations: The Federal rules restrict any use of the information to criminally investigate or prosecute any alcohol or drug abuse patient.[facility] the event this information is protected by the Federal Confidentiality of Alcohol and Drug Abuse Patient Records regulations: The Federal rules restrict any use of the information to criminally investigate or prosecute any alcohol or drug abuse patient.[facility] the event this information is protected by the Federal Confidentiality of Alcohol and Drug Abuse Patient Records regulations: The Federal rules restrict any use of the information to criminally investigate or prosecute any alcohol or drug abuse patient.[facility] the event this information is protected by the Federal Confidentiality of Alcohol and Drug Abuse Patient Records regulations: The Federal rules restrict any use of the information to criminally investigate or prosecute any alcohol or drug abuse patient.[facility] the event this information is protected by the Federal Confidentiality of Alcohol and Drug Abuse Patient Records regulations: The Federal rules restrict any use of the information to criminally investigate or prosecute any alcohol or drug abuse patient.[facility] the event this information is protected by the Federal Confidentiality of Alcohol and Drug Abuse Patient Records regulations: The Federal rules restrict any use of the information to criminally investigate or prosecute any alcohol or drug abuse patient.[facility] the event this information is protected by the Federal Confidentiality of Alcohol and Drug Abuse Patient Records regulations: The Federal rules restrict any use of the information to criminally investigate or prosecute any alcohol or drug abuse patient.[facility] the event this information is protected by the Federal Confidentiality of Alcohol and Drug Abuse Patient Records regulations: The Federal rules restrict any use of the information to criminally investigate or prosecute any alcohol or drug abuse patient.[facility] the event this information is protected by the Federal Confidentiality of Alcohol and Drug Abuse Patient Records regulations: The Federal rules restrict any use of the information to criminally investigate or prosecute any alcohol or drug abuse patient.[facility] Reason for Visit (unrecogniz ed section and content) Reason Comments EMG Instructions Reason Comments New Pain Specialty Diagnoses / Procedures Referred By Contac t Referred To Contact Orthopedics / ORTHOPAEDIC SURGERY Diagnoses sprain of left wrist, alin is coming in for seccond opinion, had carple tunnel surgery on this wrist october 02, 2022 Procedures [facility] Laine Granger, APICULTURIST [address] [place] [address] Lucio Mixon MD [address] [place] [address] Referral ID Status Reason Start Date Expiration Date V isits Requested Visits Authorized [id number] Closed Patient Cleared - Admin/Chairm an/Director advise to proceed or did not respond 08/13/2023 08/13/2023 1 1 Specialty Diagnoses / Procedures Referred By Contac t Referred To Contact [facility] Diagnoses Sprain of left wrist, sequela Carpal tunnel syndrome of left wrist Procedures EMG(NEURO/NI) NERVE CONDUCTION STUDIES 9-10 STUDIES Ines Coker MD [address] [place] [address] [facility] [address] [id number] Referral ID Status Reason Start Date Expiration Date V isits Requested Visits Authorized [id number] Closed Auto-Generate d Referral 09/29/2023 10/29/2023 1 1 Reason Comments EMG- FAXED RESULTS Reason Comments Radio Gen RMP Specialty Diagnoses / Procedures Referred By Contac t Referred To Contact XR IMAGING Diagnoses Pain Procedures XR WRIST GENERAL 3V PA/LAT/OBL LEFT RADEX WRIST COMPLETE MINIMUM 3 VIEWS Lucio Mixon MD [address] [place] [address] Xr Imaging [facility] Referral ID Status Reason Start Date Expiration Date V isits Requested Visits Authorized [id number] Closed Auto-Generat ed Referral Patient Cleared - Admin/Chairm an/Director advise to proceed or did not respond 08/13/2023 08/13/2023 1 1 Reason Comments Pain 5/10 pain tingling t humb pain constant Follow Up 5/10 pain tingling t humb pain constant Specialty Diagnoses / Procedures Referred By Contac t Referred To Contact XR IMAGING Diagnoses Pain Procedures XR WRIST INJURY 4V PA/LAT/OBL/SCAPH LEFT RADEX WRIST COMPLETE MINIMUM 3 VIEWS Lucio Mixon MD [address] [place] [address] [place] [id number] Referral ID Status Reason Start Date Expiration Date V isits Requested Visits Authorized [id number] Closed Auto-Generate d Referral 01/07/2024 01/14/2024 1 [...] BE BASED ON THE PRIMARY CLINICAL RECORDS. [employer] provides no warranty or guarantee of the accuracy or completeness of information in this document.
--- NOTE | 2024-02-17 14:30 | P.DS_ITS ---
Discharge Plan Discharge Disposition: Home, Self-Care Outpatient Diagnostics: VC INJ Foam Sclerosant WUS EDUCATION ASSISTANT (Routine) Timeframe: 1 Month Facility: [facility] - Location: [facility] Ordered By: Carlos Conde Follow Up Appointments: 02/26/24 Plan of Treatment: Varithena/microfoam of left leg Print Language: Turkmen Discharge Date/Time: 02/17/24 14:32
--- NOTE | 2024-02-17 14:30 | W.VEIN ---
Discharge Plan Discharge Disposition: Home, Self-Care Outpatient Diagnostics: VC INJ Foam Sclerosant WUS DIE TURNER (Routine) Timeframe: 1 Month Facility: [facility] - Location: [facility] Center Ordered By: Carlos Conde Follow Up Appointments: 02/26/24 Plan of Treatment: Varithena/microfoam of left leg Print Language: Thai Discharge Date/Time: 02/17/24 14:32
== END 2024-02-17 14:32 | disposition home or self-care (01) ==
PROVIDERS: PCP Radiology Diagnostic Radiology; Visit Provider Radiology Diagnostic Radiology
DX: I80.02 Phlebitis and thrombophlebitis of superficial vessels of left lower extremity (principal)
CPT/HCPCS: 93971; G0463

== ENCOUNTER 2024-02-26 07:55 | Outpatient (OUT) | payer OTHER, SELFPAY ==
--- NOTE | 2024-02-25 14:49 | VEINCLINIC_ITS ---
Vital Signs 02/26/24 08:10 BP 128/70 BP Location Right Brachial BP Position Sitting BP Cuff Size Adult BP Source Manual Cuff Respiration 18 Pulse 60 Pulse Source Monitor Pulse Oximetry (%) 97 Oxygen Delivery Method Room Air Comment The patient's blood pressure is elevated. Varicose Veins Patient in today for Varithena/microfoam chemical ablation left leg. Eavn Cristobal MD personally performed the services described in this documentation, as scribed by Nadia Vasquez RN in my presence and it is both accurate and complete. INadia RN, am scribing for, and in the presence of, Dr. Evan Carlin and in the presence of the patient. thigh: bilateral (left > right leg), knee: bilateral, calf: bilateral, ankle: bilateral and funez: bilateral aching, cramping and tender 37 years Worsened in recent months: Yes standing and walking elevating extremities, compression stockings and exercise Reports muscle spasms of leg, fatigue, heaviness, restless legs, edema and leg edema History of lower extremity trauma: No Superficial thrombophlebitis: Yes (DVT to left leg) Family history of varicose veins: yes Has patient had previous lower extremity venous surgery: No Patient has previously received the following treatment(s) for lower extremity varicose veins: Reports none Does patient have a history of : yes Does patient intend to have future pregnancies: no Has patient had lower extremity venous scan with relux testing: No Support hose used: Yes Problems walking or doing physical activity: Yes How does it affect you: often has to rest and elevate legs/feet while and 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 Nadia Cristobal RN, am scribing for, and in the presence of, Dr. Evan Carlin and in the presence of the patient. 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 ?I80.01 - Phlebitis and thrombophlebitis of superficial vessels of right lower extremity (ICD-10) Phlebitis and thrombophlebitis of superficial vessels of left lower extremity ?I80.02 - Phlebitis and thrombophlebitis of superficial vessels of left lower extremity (ICD-10) Varicose veins of bilateral lower extremities with pain ?I83.813 - Varicose veins of bilateral lower extremities with pain (ICD-10) Plantar fascial fibromatosis ?M72.2 - Plantar fascial fibromatosis (ICD-10) Contracture, left ankle ?M24.572 - Contracture, left ankle (ICD-10) Vertigo ?R42 - Dizziness and giddiness (ICD-10) Chronic cystitis ?N30.20 - Other chronic cystitis without hematuria (ICD-10) Chronic kidney disease ?N18.9 - Chronic kidney disease, unspecified (ICD-10) Urinary tract infection ?N39.0 - Urinary tract infection, site not specified (ICD-10) COVID-19 (04/16/23) ?U07.1 - COVID-19 (ICD-10) Migraine ?G43.909 - Migraine, unspecified, not intractable, without status migrainosus (ICD-10) S/P extracorporeal shock wave therapy ?Z98.890 - Other specified postprocedural states (ICD-10) Kidney stones ?N20.0 - Calculus of kidney (ICD-10) Seasonal allergies ?J30.2 - Other seasonal allergic rhinitis (ICD-10) GERD (gastroesophageal reflux disease) ?K21.9 - Gastro-esophageal reflux disease without esophagitis (ICD-10) Surgical History (Updated 02/10/24 @ 08:25 by Stefan Hood) Status post laser ablation of incompetent vein ?Z98.890 - Other specified postprocedural states (ICD-10) Status post laser ablation of incompetent vein ?Z98.890 - Other specified postprocedural states (ICD-10) Status post laser ablation of incompetent vein ?Z98.890 - Other specified postprocedural states (ICD-10) History of endometrial ablation ?Z98.890 - Other specified postprocedural states (ICD-10) History of spinal surgery ?Z98.890 - Other specified postprocedural states (ICD-10) History of tonsillectomy ?Z90.89 - Acquired absence of other organs (ICD-10) H/O hand surgery ?Z98.890 - Other specified postprocedural states (ICD-10) History of foot surgery ?Z98.890 - Other specified postprocedural states (ICD-10) History of carpal tunnel release ?Z98.890 - Other specified postprocedural states (ICD-10) Family History (Updated 11/12/23 @ 10:49 by Stefan Hood) Other Family history of diabetes mellitus Family history of hypertension Family history of myocardial infarction Pain due to varicose veins of both lower extremities Social History Within the past year, how often did you have a drink containing alcohol: 2-4 times a month Smoking status: Never smoker Non-prescribed substance use: denies use 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 Highest level of school completed/degree received: high school graduate Meds Home Medications and Allergies Home Medications ?Medication ?Instructions ?Recorded ?Confirmed ?Type cetirizine 10 mg tablet (Zyrtec) 10 mg PO DAILY PRN allergy symptoms 05/19/23 11/12/23 History lansoprazole 30 mg capsule,delayed 30 mg PO DAILY 05/19/23 11/12/23 History release multivitamin (Daily Multi-Vitamin 1 tab PO DAILY 05/19/23 11/12/23 History tablet) ondansetron 4 mg disintegrating 4 mg PO Q8H PRN nausea and 06/04/23 11/12/23 Rx tablet vomiting 5 days #15 tabs tizanidine 2 mg tablet 2 mg PO TID PRN muscle spasticity 06/04/23 11/12/23 Rx 7 days #21 tabs Allergies Allergy/AdvReac Type Severity Reaction Status Date / Time levofloxacin (From Levaquin) Allergy Muscle Pain Verified 06/29/23 14:18 phenobarbital Allergy Unknown Verified 06/29/23 14:18 Sulfa (Sulfonamide Allergy Rash Verified 06/29/23 14:18 Antibiotics) Exam Narrative Exam Narrative: Evan Cristobal MD personally performed the services described in this documentation, as scribed by Nadia Vasquez RN in my presence and it is both accurate and complete. Nadia Cristobal RN, am scribing for, and in the presence of, Dr. Evan Carlin and in the presence of the patient. Constitutional Documenting provider has reviewed patient's vital signs: yes Common normals: oriented x3 Nutritional appearance: overweight Cardio Peripheral pulses: dorsalis pedis pulses present Extremity Common normals: normal capillary refill General: edema Right lower extremity: lower leg Right lower leg: inspection and palpation Left lower extremity: lower leg Left lower leg: inspection and palpation Neuro Common normals: oriented x3 Assessment and Plan Assessment and Plan (1) Varicose veins of bilateral lower extremities with pain: Plan The patient tolerated the procedure well without complication.? The patient verbalizes understanding and states they will comply.? Patient was given post- procedure instructions. Patient was discharged in good condition.? Scheduled to undergo follow-up evaluation on 03/02/24. IEvan MD personally performed the services described in this documentation, as scribed by Nadia Vasquez RN in my presence and it is both accurate and complete. INadia RN, am scribing for, and in the presence of, Dr. Evan Carlin and in the presence of the patient. Procedures Procedure Instructions Procedures leg microfoam chemical ablation/Varithena: Risks and benefits of the procedure were discussed at length and informed written consent was obtained.? Time-out procedure was performed and the correct patient and procedure were confirmed.? Staff present during time-out: Nadia Vasquez RN and Evan Carlin MD.? Patient prepped and procedure performed in usual sterile fashion.? Patient was placed in Trendelenburg prior to Polidocanol/Varithena injections. Sclerosing Agent:?? 4cc 1% Polidocanol/Varithena Site Injected: left leg Number of Injections:? 8cc into 5mm vein left distal anterior lower leg 7cc into 6mm vein left distal medial thigh The patient tolerated the procedure well without complication.? Hemostasis was obtained and thigh-high compression stocking was applied with foam pads.? Instructed patient to wear stocking for at least 96 hours and sleep with it and only remove for showering.? The patient was instructed to? wear stocking for 2 weeks.? Patient verbalizes understanding and states they will comply.? Patient was given post-procedure instructions. Patient was discharged in good condition.? Scheduled to undergo limited venous ultrasound and? exam on 03/02/24. IEvan MD personally performed the services described in this documentation, as scribed by Nadia Vasquez RN in my presence and it is both accurate and complete. I, Nadia Vasquez RN, am scribing for, and in the presence of, Dr. Evan Carlin and in the presence of the patient.
--- NOTE | 2024-02-25 14:52 | W.VEIN ---
Discharge Plan Discharge Disposition: Home, Self-Care Outpatient Diagnostics: VC Facility EST LMTD (Routine) Timeframe: 2 Weeks Facility: [facility] - Location: [facility] Center Ordered By: Evan Carlin VC EXT Venous LT Limited (Routine) Timeframe: 2 Weeks Facility: [facility] - Location: [facility] Center Ordered By: Evan Carlin Follow Up Appointments: 03/02/24 Plan of Treatment: u/s follow following varithena left leg on 02/26/24 Patient Instructions: Polidocanol (By injection) (Asclera, Ziathena) Print Language: Korean Discharge Date/Time: 02/26/24 08:45
--- NOTE | 2024-02-26 07:56 | VEIN_ITS ---
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 Pre-operative Diagnosis: CEAP class C4a venous insufficiency with pain, tenderness, edema and incompetent branch saphenous vein(s), chronic venous insufficiency left leg secondary to venous incompetence Post-operative Diagnosis: CEAP class C4a venous insufficiency with pain, tenderness, edema and incompetent branch saphenous vein(s), chronic venous insufficiency left leg secondary to venous incompetence Procedure Performed: 1. Ultrasound-guided microfoam chemical ablation with Varithenaregistered 2. Intraoperative ultrasound guidance Physician: Evan Carlin M.D. Anesthesia: None Indications for Procedure: 58 year old female. Symptoms including lower extremity pain, swelling, dilated bulging veins for many years despite conservative medical therapy including medical compression stockings, exercise and analgesics. Prior procedures include endovenous laser ablation. Multiple incompetent varicosities of the left leg. Duplex scan showed reflux and enlarged diameters up to 6 mm. The patient underwent informed consent including management options where the complications of infection, bleeding, pain, and skin injury were discussed. Particular attention was spent discussing thrombus extension and deep vein thrombosis as well as the possibility of pulmonary embolus and treatment with oral or injectable blood thinners. Procedure: The patient walked to the procedure room. All applicable staff donned appropriate apparel. A procedure timeout was performed to confirm correct patient, correct extremity, correct procedure, and correct room set-up including presence of all applicable supplies, devices, and drugs. A duplex ultrasound, performed by myself confirmed the location and incompetence of branch saphenous varicosities and their course was marked on the skin together with the dilated tributaries. The extent of treatment of the vein and the associated varicosities was determined through ultrasound mapping. The skin was prepped and then punctured with a butterfly needle and advanced under ultrasound guidance. The Varithenaregistered canister was activated and the canister was primed and purged as required in the instructions for use. Varithenaregistered was drawn into a sterile syringe. Varithenaregistered was slowly administered at 0.5-1.0 cc/second with close observation by ultrasound of its course in the vessels. Total volume utilized was: 15 mL (8 mL into a 5 mm varicosity distal anterior lower leg; 7 mL into a 6 mm varicosity distal medial thigh). Following administration of Varithenaregistered the leg was elevated and the patient was asked to repeatedly dorsiflex the ankle to limit flow of Varithenaregistered into perforating veins. Once appropriate spasm had been confirmed in the treated veins, the vascular catheter was removed from the leg and light pressure was applied over the puncture site for hemostasis. The common femoral and deep superficial veins were then evaluated for flow and compressibility prior to dressing placement. The lower extremity was kept elevated at 45 degrees above the horizontal and cording material was applied over the saphenous segments and tributaries to allow for eccentric compression over the target vessels including the targeted saphenous vein(s). A multilayer dressing was applied consisting of foam pads, coban and thigh-high 20-30 mm Hg compression elastic support hose were placed on the patient. The leg was lowered only after compression had been applied and the patient was immediately ambulatory. The patient ambulated 10 minutes under supervision and was without apparent concerns at time of release. Post-care instructions include advising patient to keep post-treatment bandages in place and dry for 48 hours, avoid extended periods of inactivity, avoid heavy exercise for one week, wear compression stockings on the treated leg continuously for two weeks, to walk daily for 10 minutes over the next month. The patient was instructed to take an anti-inflammatory medicine as needed and to follow up for color duplex scan of the Saphenous veins, the treated branch saphenous varicosities, the adjacent deep veins, and additional treatment within 7 days. PERSONNEL: Nadia Vasquez RN Electronically authenticated by: EVAN CARLIN Date: 02/26/2024 11:20
--- OUTSIDE RECORDS SUMMARY | 2024-02-26 08:00 | XMS_ITS | CCD ---
Author Organization [facility] Care Team Providers Care Clinical Material Handler Name Role Phone Shai Lau Primary Care Physician [phone] JEFFREY ., DR DRUMMOND Consulting Unavailable SALMON [...] ., DR GIBBONS Primary Care Unavailable MAX KWOALSKI Attending Unavailable SKIE, MAX Attending Unavailable SKIEMAX [...] Drug Allergy 02-22-20 16 .. [facility] (18 sources) PHENobarbital; Translations: [phenobarbital] Drug Allergy 07-07-19 15 Unknown [facility] (7 sources) Sulfonamides (Antibiotic); Translations: [sulfa drugs] Drug allergy RASH [facility] (1 source) benzoin resin Drug Allergy 08-21-19 16 [facility] (1 source) levoFLOXacin Drug Allergy 08-21-19 16 [facility] (1 source) Sulfonamides (Antibiotic) Drug allergy (disorder) 08-21-19 16 [facility] (11 sources) Sulfamethoxazole / Trimethoprim; Translations: [SULFAMETHOXAZOLE-TR IMETHOPRIM] Drug Allergy 07-07-19 15 Rash [facility] (1 source) Sulfonamides (Antibiotic); Translations: [SULFA (SULFONAMIDE ANTIBIOTICS)] Propensity to adverse reactions to drug (disorder) 12-20-19 15 [facility] Rep[facility] Medications Current Medications Medication Drug [...] day(s), # 14 cap(s), Refills(s) 0, Pharmacy: [facility]/pharmacy #[id number], 161, cm, 05/13/21 9:04:00 EST, Height/Length Dosing, 91.5, kg, 05/13/21 9:04:00 EST, Weight Dosing Start Date: 07/02/21 Stop Date: 07/09/21 Status: Ordered fluconazole 150 mg oral tablet (2 sources) Azole Antifungal Start: 07-02-2021 End: 07-09-2021 Diflucan 150 mg Tab See Instructions, 1 tab po q72 hrs x 3 doses, then dc, # 3 tab(s), Refills(s) 0, Pharmacy: [facility]/pharmacy #[id number], 161, cm, 05/13/21 9:04:00 [...] 0, Prophylaxis Start Date: 01/11/16 Status: Ordered Whiting-3 Fatty Acids-Vitamin E (FISH OIL) 1,000 mg cap (9 sources) Whiting-3 Fatty Acids-Vitamin E (FISH OIL) 1,000 mg cap Take 1 capsule by mouth. Active Whiting-3 Fatty Ac ids-Vitamin E (FISH OIL) 1,000 [...] CNOV Office Visit (OTMBHT ) ALYSSA LOPEZ ([id number]) 1965 F Date Time Provider Department 01/14/24 12:40 PM LUCIO MIXON During your visit today, we recorded the following information about you: Lucio Mixon MD 02/09/2024 8:08 AM Signed Lucio Mixon MD Department of Orthopaedics Orthopaedic Surgery [facility] [address] [address] [facility] [address] Dept: [phone] Dept January 14, 2024 CHIEF COMPLAINT: Pain [...] before without relief. 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 ASSESSMENT: M18.12 [...] studies of the median nerve and normal [id number] comparative studies. - No electrodiagnostic evidence of [...] ONE DAILY MULTIVITAMIN ORAL Take by mouth. Whiting-3 Fatty Acids-Vitamin E (FISH OIL) 1,000 mg [...] Lucio Mixon MD Referring Provider: LUCIO MIXON [[id number]] Allergies As of Date: 01/14/2024 Noted Allergy [...] DAILY MULTIVITAMIN ORAL Take by mouth. - Whiting-3 Fatty Acids-Vitamin E (FISH OIL) 1,000 mg cap Take 1 capsule by mouth. - amitriptyline (ELAVIL) 10 mg tablet Take 10 mg by mouth daily at bedtime. - metoclopramide HCl (REGLAN) 5 mg tablet Take 5 mg by mouth daily at bedtime. Problem List As Of Date: 01/14/2024 (None) Letter Text Encounter Status:Closed by LUCIO MIXON on 02/09/24 Normal [facility] Reference Lab Notificationon 01-01-2024 Results Report See Ref Lab Report Normal [facility] Comment on above: Performed By: #### 2 [id number] #### [facility] [address] [place] [address] US Pelvis Non-OB Completeon 01-01-2024 US Pelvis [...] Transabdominal Ultrasound Performed Transvaginal Ultrasound Performed Normal [facility] US Transvaginal Non-OBon US Transvaginal Non-OB Exam Date/Time: 12/29/2023 17:34 EDT Reason for Exam: N95.0 Report Review ultrasound pelvis non-OB complete for report of the US transvaginal non-OB. Ordering Provider: Allen Noriega FINAL REPORT Dictated: 01/01/2024 2:11 pm Rodríguez Schultz MD Signed (Electronic Signature): 01/01/2024 2:11 pm Signed by: Rodríguez Schultz MD Transcribed by: OLIVIA Technologist: LAWRENCE Normal [facility] TEST IN QUESTION - CYTOLOGYo n 12-29-2023 CONTAINER TYPE: TP Normal [facility] Comment on above: Order Comment: FASTI NG: UNKNOWN Performed By: #### 3 [id number] #### [facility] [address], [address] [place] [phone] Russian Rubber: Dmitri Maradiaga MD QUESTION/PROBLEM Normal [facility] Comment on above: Order Comment: FASTI NG: UNKNOWN Result Comment: PER CESILIA Salcedo AT CLIENT OFFICE, RUN TEST CODE [id number]. Performed By: #### 3 [id number] #### [facility] [address], [address] [place] [address] Russian Rubber: Dmitri Maradiaga MD Reference Lab Notificationon 12-28-2023 Ref [facility] Normal [facility] Comment on above: Performed By: #### 2 [id number] #### [facility] [address] [place] [address] [facility] 09-29-2023 CNPN Telephone (EMGMN) ALYSSA LOPEZ ([id number]) 1965 F Date Time Provider Department 09/29/23 [...] DAILY MULTIVITAMIN ORAL Take by mouth. - Whiting-3 Fatty Acids-Vitamin E (FISH OIL) 1,000 mg cap Take 1 capsule by mouth. - amitriptyline (ELAVIL) 10 mg tablet Take 10 mg by mouth daily at bedtime. - metoclopramide HCl (REGLAN) 5 mg tablet Take 5 mg by mouth daily at bedtime. Problem List As Of Date: 09/29/2023 (None) Encounter Status:Closed by NEEMA CAMPOS on 09/29/23 Normal [facility] EMG(NEURO/NI)on 09-29-2023 Results can be seen in attached scanned documents. If you are a patient reviewing this test result, call the doctor who ordered the test with any questions. [facility] 08-28-2023 CNPN Telephone (EMGMN) ALYSSA LOPEZ ([id number]) 1965 F Date Time Provider Department 08/28/23 [...] DAILY MULTIVITAMIN ORAL Take by mouth. - Whiting-3 Fatty Acids-Vitamin E (FISH OIL) 1,000 mg cap Take 1 capsule by mouth. - amitriptyline (ELAVIL) 10 mg tablet Take 10 mg by mouth daily at bedtime. - metoclopramide HCl (REGLAN) 5 mg tablet Take 5 mg by mouth daily at bedtime. Problem List As Of Date: 08/28/2023 (None) Encounter Status:Closed by MANDY PRECIADO on 08/28/23 [facility] ([id number]) 1965 F Date Time Provider Department 08/20/23 LUCIO MIXON During your visit today, we recorded the following information about you: Karly Leija 08/20/2023 9:18 AM Signed Name of Caller: Nayeli at [facility] Relationship to patient: Last visit in this department: 08/13/2023 Reason for Call: Other : Nayeli calling from [facility] to get office notes and any test results if applicable for the 08/13/23 visit. Please fax to [phone] Callback number: [phone] Fax Number (if necessary): [phone] Additional info if needed (Prior Auth #, Claim #, etc?): N/A Valentina Bella PA-C 08/24/2023 9:[address] Mixon's note still not completed, I did call Nayeli at [facility]. We did discuss that the patient needs [...] DAILY MULTIVITAMIN ORAL Take by mouth. - Whiting-3 Fatty Acids-Vitamin E (FISH OIL) 1,000 mg cap Take 1 capsule by mouth. - amitriptyline (ELAVIL) 10 mg tablet Take 10 mg by mouth daily at bedtime. - metoclopramide HCl (REGLAN) 5 mg tablet Take 5 mg by mouth daily at bedtime. Problem List As Of Date: 08/20/2023 (None) Encounter Status:Closed by VALENTINA LINDSEY on 08/24/23 Normal [facility] CNOVon 08-13-2023 CNOV Office Visit (OTMBHT ) ALYSSA LOPEZ ([id number]) 1965 F Date Time Provider Department 08/13/23 9:20 AM LUCIO MIXON During your visit today, we recorded the following information about you: Lucio Mixon MD 09/08/2023 4:53 PM Signed Lucio Mixon MD Department of Orthopaedics Orthopaedic Surgery [facility] [address] [address] [facility] [address] Dept: [phone] Dept August 13, 2023 CHIEF COMPLAINT: New [...] her origional EMG test. SHe'll have her [facility] get an c9 for a [...] ONE DAILY MULTIVITAMIN ORAL Take by mouth. Whiting-3 Fatty Acids-Vitamin E (FISH OIL) 1,000 mg [...] US mail. Laine Granger CNP [address] [facility] [address] Lucio Mixon MD Referring Provider: LAINE GRANGER [[id number]] Allergies As of Date: 08/13/2023 Noted Allergy Reaction BACTRIM (SULFAMETHOXAZOLE-TRI METH*07/06/2014 2 - Rash PHENOBARBITAL 07/06/2014 16 - Unknown Date Reviewed: 08/13/2023 Reviewed by: Nargis Stiles MA - Fully Assessed Reason for Visit: New [723971] Pain [78] Primary Visit Diagnosis:Numbness and tingling in left hand [R20.0, R20.2] Prescriptions as of 09/08/2023 - ONE DAILY MULTIVITAMIN ORAL Take by mouth. - Whiting-3 Fatty Acids-Vitamin E (FISH OIL) 1,000 mg cap Take 1 capsule by mouth. - amitriptyline (ELAVIL) 10 mg tablet Take 10 mg by mouth da (more content not included)... Normal [facility] XR WRIST 3V PA/LAT/OBL LTon [...] IMPRESSION: REMOTE POSTSURGICAL AND DEGENERATIVE CHANGES DESCRIBED Tenon Machine Operator: KASSI Transcribe Date/Time: Aug 13 2023 10:48A Dictated by : SARITA WILEY MD This examination was interpreted and the report reviewed and electronically signed by: SARITA WILEY MD on Aug 13 2023 10:50AM EST [id number] Normal [facility] XR Wrist - left PA and Later al and Obliqueon 08-13-2023 IMPRESSION: REMOTE POSTSURGICAL AND DEGENERATIVE CHANGES DESCRIBED Tenon Machine Operator: KASSI Transcribe Date/Time: Aug 13 2023 10:48A [...] soft tissue swelling. DIVISION OF RADIOLOGY Provider, [facility] * * *Final Report* [...] IMPRESSION: REMOTE POSTSURGICAL AND DEGENERATIVE CHANGES DESCRIBED Tenon Machine Operator: KASSI Transcribe Date/Time: Aug 13 2023 10:48A Dictated by : SARITA WILEY MD This examination was interpreted and the report reviewed and electronically signed by: SARITA WILEY MD on Aug 13 2023 10:50AM EST [facility] Radiology Study observation (narrative) [facility] XR Wrist - left PA and Later al and ObliqueOrdered By: Ccf Provider on 08-13-2023 [facility] ic Provider Letteron 04-23-2023 Provider Letter April 23, 2023 ALYSSA LOPEZ [address] [place] [address] : 1965 Dear Alyssa , We have [...] [facility] [address], [place] [address] [facility] Follow-Upon 04-22-2023 Follow-Up [id number] Alyssa Lopez 1965 Provider Department Center 04/22/2023 MAX MUSTAFA MP [facility] Family History Family history unknown: Yes Level of Service:09827 [place] OFFICE/OUTPT VISIT,PROCEDURE ONLY Reason for Visit and Comments: Follow-up [674507] - Constant tingling - thumb goes numb when driving or holding something for a bit and the numbness also goes into the middle finger as well. Pain [136] - Constant tingling - thumb goes numb when driving or holding something for a bit and the numbness also goes into the middle finger as well. [facility] Follow-Upon 02-10-2023 Follow-Up [id number] Alyssa Lopez 1965 Date Provider Department Center 02/10/2023 MAX MUSTAFA MP ORTHO MPORTHO Family History Family history unknown: Yes Level of Service:24097 [place] OFFICE/OUTPATIENT ESTABLISHED LOW MDM 20-29 MIN Reason for Visit and Comments: Follow-up [323009] [facility] Follow-Upon 11-26-2022 Follow-Up [id number] Alyssa Lopez 1965 F Date Provider Department Center 11/26/2022 MAX MUSTAFA MP Family History Family history unknown: Yes Level of Service:97650 [place] OFFICE/OUTPATIENT ESTABLISHED LOW MDM 20-29 MIN Reason for Visit and Comments: Pain [136] Follow-up [778405] [facility] Office Visiton 10-15-2022 Follow-up visit [id number] Alyssa Lopez 1965 F Date Provider Department Center 10/15/2022 MAX MUSTAFA MP Family History Family history unknown: Yes Level of Service:43608 [place] POSTOP FOLLOW UP VISIT RELATED TO ORIGINAL PX (GC) Reason for Visit and Comments: Post-op [483] Follow-up [088061] [facility] 36on 10-02-2022 36 I spoke to the patient to see how she is doing after her recent surgery with Dr Kowalski. Ms Lopez stated she is doing well and that her pain is manageable with medications. She has a follow up with Dr Kowalski on October 15 at 120. She had no other questions or concerns. [facility] HPon 10-01-2022 HP History Of Present [...] Active Problems: Hyperlipidemia L C TR Normal [facility] OPNOTEon 10-01-2022 OPNOTE Operative Note Patient: Guillermina Lopez Date of Surgery: 10/01/2022 : 1965 Pre-operative Diagnosis: Carpal Tunnel Syndrome left Hand Post-operative Diagnosis: same Operation: Carpal Tunnel Release, left (89787) Surgeon: Max Kowalski MD Technology Sales Consultant: Drew Chacon MD Staff: Splitting Machine Feeder: Mayte Chery RN Scrub Person: Cayetano Ace [...] PACU Condition: stable Max Kowalski MD Normal [facility] POCT GLUCOSE METER UNSOLICIT ED RESULTSon 10-01-2022 Glucose [Mass/Vol] 91 mg/dL Normal 70-105 [facility] Comment on above: Order Comment: Waive d Testing in the ED is performed under the ED CLIA certificate #[id number]. Result Comment: epaw low Performed By: #### L [id number] ####[facility] (BEAKER)[address] [place] [address] [id number] 09-24-2022 [id number] NPO AFTER MIDNIGHT. MUST HAVE A INGREDIENT SCALER HELPER TO TAKE YOU HOME AND SOMEONE TO STAY FOR 24 HOURS AFTER SURGERY. NO JEWELRY OR VALUABLES. HOLD THE MEDS WE SPOKE ABOUT: VITAMINS STARTING 09-27. TAKE THE MEDS WE SPOKE ABOUT WITH A SIP OF WATER DOS: PREVACID, ADIPEX. BRING INSURANCE CARD AND PHOTO ID AND MED LIST. Normal [facility] CITRATE URINE 24HRon 023 Citric Acid, U, 24hr 363 mg/24 hr Normal 320-1240 [facility] Comment on above: Result Comment: This test was developed and its performance characteristics determined by [facility]. It has not been cleared or approved by the Food and Drug Administration. Performed By: #### C ITRATU #### [facility] [address] [place] [address] Dr. Prabhu Lopez Citric Acid, Urine 338 mg/L Normal Undefined The [facility] Comment on above: Performed By: #### C ITRATU #### [facility] [address] [place] [address] [address] Prabhu Lopez OXALATE 24HR URINEon 023 Oxalates, Urine 15 mg/L Normal Undefined The [facility] Comment on above: Performed By: #### O X24HR #### [facility] [address] [place] [address] Dr. Prabhu Lopez Oxalates, Urine 24hr 16 mg/24 hr Normal 4-31 [facility] Comment on above: Performed By: #### O X24HR #### [facility] [address] [address] [address] Prabhu Lopez MAGNESIUM 24HR URINEon 08-15 Magnesium 24hr Urine 94.6 mg/24 hr Normal 12.0-293.0 [facility] Comment on above: Performed By: #### U JESI, BMP #### [facility] [address] [place] [address] Dr. Prabhu Lopez Magnesium UR 8.8 mg/dL Normal Not Estab. The [facility] Comment on above: Performed By: #### U JESI, BMP #### [facility] [address] [place] [address] Dr. Prabhu Lopez PHOSPHORUS 24HR URINEon 08-04 Phosphorus, Urine 48.2 mg/dL Normal Not Estab. The [facility] Comment on above: Performed By: #### P HOS 24 #### [facility] [address] [place] [address] Dr. Prabhu Lopez Phosphorus, Urine 24hr 518 mg/24 hr Normal 261-1078 [facility] Comment on above: Performed By: #### P HOS 24 #### [facility] [address] [place] [address] Dr. Prabhu Lopez URIC ACID 24 HR URINEon 08-04 Uric Acid, Urine 29.6 mg/dL Normal Not Estab. The [facility] Comment on above: Performed By: #### U JESI, BMP #### [facility] [address] [place] [address] Dr. Prabhu Lopez Uric Acid, Urine 24hr 318.2 mg/24 hr Normal 173.7-902.1 [facility] Comment on above: Performed By: #### U JESI, BMP #### [facility] [address] [place] [address] Dr. Prabhu Lopez CALCIUM 24 HR URINEon 2022 CALC, 24 HR UR 76.3 mg/24 hr Critically low 100.0-300.0 Th e [facility] Comment on above: Performed By: #### C ALC24U #### [facility] [address] [place] [address] Dr. Prabhu Lopez UR CALCIUM 7.1 mg/dL Normal 5.1-21.0 [facility] Comment on above: Performed By: #### C ALC24U #### [facility] [address] [place] [address] Dr. Prabhu Lopez UR TOT VOL 1075 ml/24 HR Normal [facility] Comment on above: Performed By: #### C ALC24U #### [facility] [address] [place] [address] Dr. Prabhu Lopez Performed By: #### N A24U, [id number] #### [facility] [address] [place] [address] Dr. Prabhu Lopez CBC AUTO DIFFon 08-14-2022 BASO # 0.1 103/ul Normal 0.0-0.1 [facility] Comment on above: Performed By: #### U JESI, BMP #### [facility] [address] [place] [address] Dr. Prabhu Lopez Basophils/100 WBC (Bld) 1.3 % Normal 0.2-2.0 [facility] Comment on above: Performed By: #### U JESI, BMP #### [facility] [address] [place] [address] Dr. Prabhu Lopez EO # 0.3 103/ul Normal 0.0-0.7 [facility] Comment on above: Performed By: #### U JESI, BMP #### [facility] [address] [place] [address] Dr. Prabhu Lopez Eosinophils/100 WBC (Bld) 5.2 % Normal 0.9-7.0 [facility] Comment on above: Performed By: #### U JESI, BMP #### [facility] [address] [place] [address] Dr. Prabhu Lopez Erythrocyte distribution width (RBC) [Ratio] 12.9 % Normal 11.0-15.0 [facility] Comment on above: Performed By: #### U JESI, BMP #### [facility] [address] [place] [address] Dr. Prabhu Lopez Hematocrit (Bld) [Volume fraction] 42.7 % Normal 36.0-48.0 [facility] Comment on above: Performed By: #### U JESI, BMP #### [facility] [address] [address] [address] Prabhu Lopez Hemoglobin (Bld) [Mass/Vol] 13.4 g/dL Normal 12.0-16.0 [facility] Comment on above: Performed By: #### U JESI, BMP #### [facility] [address] [address] [address] Prabhu Lopez IG # 0.02 10e3/ul Normal 0.00-0.03 [facility] Comment on above: Performed By: #### U JESI, BMP #### [facility] [address] [place] [address] Dr. Prabhu Lopez IG % 0.4 % Normal 0.0-0.5 [facility] Comment on above: Performed By: #### U JESI, BMP #### [facility] [address] [place] [address] Dr. Prabhu Lopez LYMPH # 2.0 103/ul Normal 1.2-3.8 [facility] Comment on above: Performed By: #### U JESI, BMP #### [facility] [address] [place] [address] Dr. Prabhu Lopez Lymphocytes/100 WBC (Bld) 41.5 % Normal 20.5-60.0 [facility] Comment on above: Performed By: #### U JESI, BMP #### [facility] [address] [place] [address] Dr. Prabhu Lopez MANUAL DIFF REQ NO Normal [facility] Comment on above: Performed By: #### U JESI, BMP #### [facility] [address] [place] [address] Dr. Prabhu Lopez MCH (RBC) [Entitic mass] 28.7 pg Normal 26.7-34.0 The [facility] Comment on above: Performed By: #### U JESI, BMP #### [facility] [address] [place] [address] Dr. Prabhu Lopez MCHC (RBC) [Mass/Vol] 31.4 g/dL Normal 29.9-35.2 [facility] Comment on above: Performed By: #### U JESI, BMP #### [facility] [address] [address] [address] Prabhu Lopez MCV (RBC) [Entitic vol] 91.4 fL Normal 81.0-99.0 [facility] Comment on above: Performed By: #### U JESI, BMP #### [facility] [address] [place] [address] Dr. Prabhu Lopez MONO # 0.4 103/ul Normal 0.3-0.8 [facility] Comment on above: Performed By: #### U JESI, BMP #### [facility] [address] [place] [address] Dr. Prabhu Lopez Monocytes/100 WBC (Bld) 8.3 % Normal 1.7-12.0 [facility] Comment on above: Performed By: #### U JESI, BMP #### [facility] [address] [place] [address] Dr. Prabhu Lopez NEUT # 2.1 103/ul Normal 1.4-6.5 [facility] Comment on above: Performed By: #### U JESI, BMP #### [facility] [address] [place] [address] Dr. Prabhu Lopez Neutrophils/100 WBC (Bld) 43.3 % Normal 43.0-75.0 [facility] Comment on above: Performed By: #### U JESI, BMP #### [facility] [address] [place] [address] Dr. Prabhu Lopez Platelet mean volume (Bld) [Entitic vol] 11.7 fL Normal 9.5-13.5 [facility] Comment on above: Performed By: #### U JESI, BMP #### [facility] [address] [place] [address] Dr. Prabhu Lopez PLT 237 103/ul Normal 150-450 [facility] Comment on above: Performed By: #### U JESI, BMP #### [facility] [address] [place] [address] Dr. Prabhu Lopez RBC 4.67 106/ul Normal 4.20-5.40 [facility] Comment on above: Performed By: #### U JESI, BMP #### [facility] [address] [place] [address] Dr. Prabhu Lopez WBC 4.8 103/ul Normal 4.0-11.0 [facility] Comment on above: Performed By: #### U JESI, BMP #### [facility] [address] [place] [address] Dr. Prabhu Lopez CREA 24 HR URINEon 3 CREA, 24 HR UR 875.48 mg/24 hr Normal 800.00-1,8 00. 00 [facility] Comment on above: Performed By: #### N A24U, [id number] #### [facility] [address] [place] [address] Dr. Prabhu Lopez URINE CREAT 81.44 mg/dL Normal 20.00-300.00 [facility] Comment on above: Performed By: #### N A24U, [id number] #### [facility] [address] [place] [address] Dr. Prabhu Lopez FREE THYROXINE INDEX T7on FTI 2.34 Normal 1.30-4.50 [facility] Comment on above: Performed By: #### U JESI, BMP #### [facility] [address] [place] [address] Dr. Prabhu Lopez T3U 33.0 % Normal 30.0-39.0 [facility] Comment on above: Performed By: #### U JESI, BMP #### [facility] [address] [place] [address] Dr. Prabhu Lopez T4 [Mass/Vol] 7.10 ug/dL Normal 4.80-13.90 [facility] Comment on above: Performed By: #### U JESI, BMP #### [facility] [address] [place] [address] Dr. Prabhu Lopez GLYCOHEMOGLOBIN A1Con 2022 ADA RECOMMENDATION SEE BELOW Normal [facility] Comment on above: Result Comment: ADA RECOMMENDED LIMIT 4.0 - 6.0 ADA THERAPEUTIC TARGET < 7.0 ACTION SUGGESTED > 7.0 Performed By: #### U JESI, BMP #### [facility] [address] [address] [address] Prabhu Lopez Glucose [Mass/Vol] 123 mg/dL Normal [facility] Comment on above: Performed By: #### U JESI, BMP #### [facility] [address] [address] [address] Prabhu Lopez HbA1c (Bld) [Mass fraction] 5.9 % Normal 4.5-6.2 [facility] Comment on above: Performed By: #### U JESI, BMP #### [facility] [address] [address] [address] Prabhu Lopez LIPID PROFILEon 08-14-2022 CHOL-HDL RATIO NORM SEE BELOW Normal [facility] Comment on above: Result Comment: 3.3 - 4.4 LOW RISK 4.4 - 7.1 AVERAGE RISK 7.1 - 11.0 MODERATE RISK >11.0 HIGH RISK Performed By: #### U JESI, BMP #### [facility] [address] [place] [address] Dr. Prabhu Lopez Cholesterol [Mass/Vol] 255 mg/dL Critically high <=200 [facility] Comment on above: Performed By: #### U JESI, BMP #### [facility] [address] [address] [address] Prabhu Lopez Cholesterol in HDL [Mass/Vol] 80 mg/dL Critically high 40-60 [facility] Comment on above: Performed By: #### U JESI, BMP #### [facility] [address] [address] [address] Prabhu Lopez Cholesterol in LDL [Mass/Vol] 156.6 mg/dL Normal [facility] Comment on above: Performed By: #### U JESI, BMP #### [facility] [address] [address] [address] Prabhu Lopez Cholesterol.total/C holesterol in HDL [Mass ratio] 3.2 {ratio} Normal [facility] Comment on above: Performed By: #### U JESI, BMP #### [facility] [address] [address] [address] Prabhu Lopez HDL NORMAL > or = 60 mg/dl - LO W CARDIOVASCULAR RISK <40 mg/dl - HIGH CARDIOVASCULAR RISK Normal [facility] Comment on above: Performed By: #### U JESI, BMP #### [facility] [address] [address] [address] Prabhu Lopez LDL CALC NORMAL SEE BELOW Normal [facility] Comment on above: Result Comment: <100 mg/dl OPTIMAL 100 - 129 mg/dl NEAR OR ABOVE OPTIMAL 130 - 159 mg/dl BORDERLINE HIGH 160 - 189 mg/dl HIGH >190 mg/dl VERY HIGH Performed By: #### U JESI, BMP #### [facility] [address] [address] [address] Prabhu Lopez Triglyceride [Mass/Vol] 92 mg/dL Normal <=150 [facility] Comment on above: Performed By: #### U JESI, BMP #### [facility] [address] [address] [address] Prabhu Lopez VLDL CALC 18.4 mg/dL Normal [facility] Comment on above: Performed By: #### U JESI, BMP #### [facility] [address] [address] [address] Prabhu Lopez PROF 14(COMP METB)on 023 Albumin [Mass/Vol] 3.9 g/dL Normal 3.4-5.0 [facility] Comment on above: Performed By: #### U JESI, BMP #### [facility] [address] [address] [address] Prabhu Lopez Albumin/Globulin [Mass ratio] 0.8 {ratio} Normal [facility] Comment on above: Performed By: #### U JESI, BMP #### [facility] [address] [address] [address] Prabhu Lopez ALP [Catalytic activity/Vol] 74 U/L Normal 46-116 [facility] Comment on above: Performed By: #### U JESI, BMP #### [facility] [address] [address] [address] Prabhu Lopez ALT [Catalytic activity/Vol] 29 U/L Normal 14-59 [facility] Comment on above: Performed By: #### U JESI, BMP #### [facility] [address] [address] [address] Prabhu Lopez Anion gap [Moles/Vol] 10.9 mmol/L Normal [facility] Comment on above: Performed By: #### U JESI, BMP #### [facility] [address] [address] [address] Prabhu Lopez AST [Catalytic activity/Vol] 22 U/L Normal 15-37 [facility] Comment on above: Performed By: #### U JESI, BMP #### [facility] [address] [address] [address] Prabhu Lopez Bilirubin [Mass/Vol] 0.7 mg/dL Normal 0.2-1.0 [facility] Comment on above: Performed By: #### U JESI, BMP #### [facility] [address] [address] [address] Prabhu Lopez Calcium [Mass/Vol] 8.9 mg/dL Normal 8.5-10.1 [facility] Comment on above: Performed By: #### U JESI, BMP #### [facility] [address] [address] [address] Prabhu Lopez Chloride [Moles/Vol] 106 mmol/L Normal 98-107 [facility] Comment on above: Performed By: #### U JESI, BMP #### [facility] [address] [address] [address] Prabhu Lopez CO2 [Moles/Vol] 30.1 mmol/L Normal 21.0-32.0 [facility] Comment on above: Performed By: #### U JESI, BMP #### [facility] [address] [address] [address] Prabhu Lopez Creatinine [Mass/Vol] 0.94 mg/dL Normal 0.55-1.02 [facility] Comment on above: Performed By: #### U JESI, BMP #### [facility] [address] [address] [address] Prabhu Lopez EGFR-AF LIBYAN >60 Normal >=60 [facility] Comment on above: Performed By: #### U JESI, BMP #### [facility] [address] [address] [address] Prabhu Lopez EGFR-NON AF LIBYAN >60 Normal >=60 [facility] Comment on above: Performed By: #### U JESI, BMP #### [facility] [address] [address] [address] Prabhu Lopez Globulin (S) [Mass/Vol] 4.8 g/dL Normal [facility] Comment on above: Performed By: #### U JESI, BMP #### [facility] [address] [address] [address] Prabhu Lopez Glucose [Mass/Vol] 96 mg/dL Normal 74-106 [facility] Comment on above: Performed By: #### U JESI, BMP #### [facility] [address] [address] [address] Prabhu Lopez Potassium [Moles/Vol] 4.0 mmol/L Normal 3.5-5.1 [facility] Comment on above: Performed By: #### U JESI, BMP #### [facility] [address] [address] [address] Prabhu Lopez Protein [Mass/Vol] 8.7 g/dL Critically high 6.4-8.2 [facility] Comment on above: Performed By: #### U JESI, BMP #### [facility] [address] [place] [address] Dr. Prabhu Lopez Sodium [Moles/Vol] 143 mmol/L Normal 136-145 [facility] Comment on above: Performed By: #### U JESI, BMP #### [facility] [address] [address] [address] Prabhu Lopez Urea nitrogen [Mass/Vol] 13.0 mg/dL Normal 7.0-18.0 [facility] Comment on above: Performed By: #### U JESI, BMP #### [facility] [address] [address] [address] Prabhu Lopez Urea nitrogen/Creatinine [Mass ratio] 13.8 mg/mg Normal [facility] Comment on above: Performed By: #### U JESI, BMP #### [facility] [address] [place] [address] Dr. Prabhu Lopez PTH INTACTon 08-14-2022 PTH, Intact 17 pg/mL Normal 15-65 [facility] Comment on above: Performed By: #### U JESI, BMP #### [facility] [address] [place] [address] Dr. Prabhu Lopez SODIUM 24 HR URINEon 023 NA, 24 HR UR 111 mmol/24 hr Normal 40-220 [facility] Comment on above: Performed By: #### N A24U, [id number] #### [facility] [address] [place] [address] Dr. Prabhu Lopez Sodium (U) [Moles/Vol] 103 mmol/L Critically high 30-90 [facility] Comment on above: Performed By: #### N A24U, [id number] #### [facility] [address] [place] [address] Dr. Prabhu Lopez TSHon 08-14-2022 TSH 2.531 uIU/mL Normal 0.358-3.740 [facility] Comment on above: Performed By: #### U JESI, BMP #### [facility] [address] [place] [address] Dr. Prabhu Lopez PROF CHEM 8 (BAS METB)on Anion gap [Moles/Vol] 8.9 mmol/L Normal [facility] Comment on above: Performed By: #### U JESI, BMP #### [facility] [address] [place] [address] Dr. Prabhu Lopez Calcium [Mass/Vol] 9.3 mg/dL Normal 8.5-10.1 [facility] Comment on above: Performed By: #### U JESI, BMP #### [facility] [address] [place] [address] Dr. Prabhu Lopez Chloride [Moles/Vol] 108 mmol/L Critically high 98-107 [facility] Comment on above: Performed By: #### U JESI, BMP #### [facility] [address] [address] [address] Prabhu Lopez CO2 [Moles/Vol] 28.5 mmol/L Normal 21.0-32.0 [facility] Comment on above: Performed By: #### U JESI, BMP #### [facility] [address] [address] [address] Prabhu Lopez Creatinine [Mass/Vol] 1.08 mg/dL Critically high 0.55-1.02 [facility] Comment on above: Performed By: #### U JESI, BMP #### [facility] [address] [address] [address] Prabhu Lopez EGFR-AF LIBYAN >60 Normal >=60 [facility] Comment on above: Performed By: #### U JESI, BMP #### [facility] [address] [address] [address] Prabhu Lopez EGFR-NON AF LIBYAN 52 mL/min/1.73m2 Critically low >=60 [facility] Comment on above: Performed By: #### U JESI, BMP #### [facility] [address] [address] [address] Prabhu Lopez Glucose [Mass/Vol] 94 mg/dL Normal 74-106 [facility] Comment on above: Performed By: #### U JESI, BMP #### [facility] [address] [address] [address] Prabhu Lopez Potassium [Moles/Vol] 3.4 mmol/L Critically low 3.5-5.1 [facility] Comment on above: Performed By: #### U JESI, BMP #### [facility] [address] [address] [address] Prabhu Lopez Sodium [Moles/Vol] 142 mmol/L Normal 136-145 [facility] Comment on above: Performed By: #### U JESI, BMP #### [facility] [address] [address] [address] Prabhu Lopez Urea nitrogen [Mass/Vol] 17.0 mg/dL Normal 7.0-18.0 [facility] Comment on above: Performed By: #### U JESI, BMP #### [facility] [address] [place], [place] [address] Dr. Prabhu Lopez Urea nitrogen/Creatinine [Mass ratio] 15.7 mg/mg Normal [facility] Comment on above: Performed By: #### U JESI, BMP #### [facility] [address] [place], [place] [address] Dr. Prabhu Lopez URIC ACID SERUMon 08-12-2022 Urate [Mass/Vol] 4.8 mg/dL Normal 2.6-6.0 [facility] Comment on above: Performed By: #### U JESI, BMP #### [facility] [address] [place], [place] [address] Dr. Prabhu Lopez 36on 08-04-2022 36 Surgery was approved . I called pt to schedule. Pt did not answer LMOV to return call. Normal [facility] Prep for Procedureon 023 Prep for Procedure [id number] Tiffany Lopez 1965 F Date Provider Department Center 08/04/2022 PATRICIA MAK MP [facility] No family history on file Normal [facility] XR KUB 1 VIEWon 05-23-2022 XR [...] WIL KAYE Date: 2022-05-23 09:40 Normal [facility] Covid-19 PCR (CVDTB)on 11-04 SARS-CoV-2 (COVID-19) RNA TANGELA+probe Ql (Unsp spec) Not detected Normal NOT DETECTED [facility] Comment on above: [...] for this test is supported by the [place] Technician of Health and Human Service's declaration that [...] used). Performed By: #### C VDTB #### [facility] [address] [place] [address] Dr. Prabhu Lopez Covid-19 PCR ([facility])on SARS-CoV-2 (COVID-19) RNA TANGELA+probe Ql (Unsp spec) Not detected Normal NOT DETECTED [facility] Comment on above: Result Comment: This test is not yet approved or cleared by the [place] FDA. When there are no FDA-approved or cleared tests available, and other criteria are met, FDA can make tests available under an emergency access mechanism called an Emergency Use Authorization (EUA). The EUA for this test is supported by the [place] Technician of Health and Human Service's (HHS's) [...] SARS-CoV-2. Performed By: #### C VDTBH #### [facility] [address] [place] [address] Dr. Prabhu Lopez B-Type Natriuretic Peptideon 02-12-2021 Natriuretic peptide B (Bld) [Mass/Vol] 36.0 pg/mL Normal 5-100 [facility] Comment on above: Result Comment: PERF ORMED BY: [place] [address] PATHOLOGIST [employer] NICANOR BALTAZAR M.D. Performed By: #### C BC, PTT, CKMB, BMP, CK, BNP, PT, HS TROP #### [address] Basic Metabolic Panelon Calcium [Mass/Vol] 8.9 mg/dL Normal 8.2-10.2 [facility] Comment on above: Performed By: #### C BC, PTT, CKMB, BMP, CK, BNP, PT, HS TROP #### [address] Chloride [Moles/Vol] 104 mmol/L Normal 95-114 [facility] Comment on above: Performed By: #### C BC, PTT, CKMB, BMP, CK, BNP, PT, HS TROP #### [address] CO2 [Moles/Vol] 24.0 mmol/L Normal 22.0-30.0 [facility] Comment on above: Performed By: #### C BC, PTT, CKMB, BMP, CK, BNP, PT, HS TROP #### [address] Creatinine [Mass/Vol] 1.06 mg/dL High 0.44-1.03 [facility] Comment on above: Performed By: #### C BC, PTT, CKMB, BMP, CK, BNP, PT, HS TROP #### [address] Creatinine Clr Calc Pharmacy 64.12 Normal [facility] Comment on above: Result Comment: PERF ORMED BY: [place] [address] PATHOLOGIST [employer] NICANOR BALTAZAR M.D. Performed By: #### C BC, PTT, CKMB, BMP, CK, BNP, PT, HS TROP #### [facility] [address] Estimated GFR ( Najma > 60 Normal [facility] Comment on above: Result Comment: GFR estimated reference range: According to KDOQI guidelines, <60 ml/min/1.73m2 is sufficient to diagnose a patient with chronic kidney disease. Performed By: #### C BC, PTT, CKMB, BMP, CK, BNP, PT, HS TROP #### [facility] [address] Estimated GFR (Non- Am 54 Normal [facility] Comment on above: Performed By: #### C BC, PTT, CKMB, BMP, CK, BNP, PT, HS TROP #### [facility] [address] Glucose [Mass/Vol] 106 mg/dL High 70-100 [facility] Comment on above: Result Comment: [place] Glucose Reference Range is dependent on time and content of last meal. Glucose of more than 200 mg/dL in a nonstressed, ambulatory subject supports the diagnosis of Diabetes Mellitus. ADA recommended reference range Performed By: #### C BC, PTT, CKMB, BMP, CK, BNP, PT, HS TROP #### [address] Potassium [Moles/Vol] 3.3 mmol/L Low 3.5-5.1 [facility] Comment on above: Performed By: #### C BC, PTT, CKMB, BMP, CK, BNP, PT, HS TROP #### [facility] [address] Sodium [Moles/Vol] 138 mmol/L Normal 136-146 [facility] Comment on above: Performed By: #### C BC, PTT, CKMB, BMP, CK, BNP, PT, HS TROP #### [facility] [address] Urea nitrogen [Mass/Vol] 11 mg/dL Normal 9-23 [facility] Comment on above: Performed By: #### C BC, PTT, CKMB, BMP, CK, BNP, PT, HS TROP #### [address] Complete Blood Count Auto Di ffon 02-12-2021 Basophils (Bld) [#/Vol] 0.1 10*3/uL Normal 0.0-0.2 [facility] Comment on above: Result Comment: PERF ORMED BY: [place] [address] PATHOLOGIST BU[employer] NICANOR BALTAZAR M.D. Performed By: #### C BC, PTT, CKMB, BMP, CK, BNP, PT, HS TROP #### [address] Basophils/100 WBC (Bld) 1.2 % Normal . [facility] Comment on above: Performed By: #### C BC, PTT, CKMB, BMP, CK, BNP, PT, HS TROP #### [address] Eosinophils (Bld) [#/Vol] 0.2 10*3/uL Normal 0.0-0.45 [facility] Comment on above: Performed By: #### C BC, PTT, CKMB, BMP, CK, BNP, PT, HS TROP #### [address] Eosinophils/100 WBC (Bld) 3.2 % Normal . [facility] Comment on above: Performed By: #### C BC, PTT, CKMB, BMP, CK, BNP, PT, HS TROP #### [address] Erythrocyte distribution width (RBC) [Ratio] 13.5 % Normal 11.9-15.3 [facility] Comment on above: Performed By: #### C BC, PTT, CKMB, BMP, CK, BNP, PT, HS TROP #### [address] Hematocrit (Bld) [Volume fraction] 36.8 % Normal 34.0-46.4 [facility] Comment on above: Performed By: #### C BC, PTT, CKMB, BMP, CK, BNP, PT, HS TROP #### [address] Hemoglobin (Bld) [Mass/Vol] 12.2 g/dL Normal 11.8-15.4 [facility] Comment on above: Performed By: #### C BC, PTT, CKMB, BMP, CK, BNP, PT, HS TROP #### [address] Lymphocytes (Bld) [#/Vol] 2.3 10*3/uL Normal 1.00-4.8 [facility] Comment on above: Performed By: #### C BC, PTT, CKMB, BMP, CK, BNP, PT, HS TROP #### [address] Lymphocytes/100 WBC (Bld) 37.1 % Normal . [facility] Comment on above: Performed By: #### C BC, PTT, CKMB, BMP, CK, BNP, PT, HS TROP #### [address] MCH (RBC) [Entitic mass] 29.5 pg Normal 24.7-34.3 [facility] Comment on above: Performed By: #### C BC, PTT, CKMB, BMP, CK, BNP, PT, HS TROP #### [address] MCV (RBC) [Entitic vol] 89.0 fL Normal 80-100 [facility] Comment on above: Performed By: #### C BC, PTT, CKMB, BMP, CK, BNP, PT, HS TROP #### [address] Mean Corpuscular HGB Conc 33.2 g/dL Normal 32.0-35.0 [facility] Comment on above: Performed By: #### C BC, PTT, CKMB, BMP, CK, BNP, PT, HS TROP #### [address] [address] [place] Monocytes (Bld) [#/Vol] 0.5 10*3/uL Normal 0.0-0.8 [facility] Comment on above: Performed By: #### C BC, PTT, CKMB, BMP, CK, BNP, PT, HS TROP #### [address] Monocytes/100 WBC (Bld) 8.7 % Normal . [facility] Comment on above: Performed By: #### C BC, PTT, CKMB, BMP, CK, BNP, PT, HS TROP #### [address] Neutrophils (Bld) [#/Vol] 3.1 10*3/uL Normal 1.8-7.7 [facility] Comment on above: Performed By: #### C BC, PTT, CKMB, BMP, CK, BNP, PT, HS TROP #### [address] Neutrophils/100 WBC (Bld) 49.8 % Normal . [facility] Comment on above: Performed By: #### C BC, PTT, CKMB, BMP, CK, BNP, PT, HS TROP #### [address] Nucleated RBC/100 WBC (Bld) [Ratio] 0.0 % Normal 0-0.5 [facility] Comment on above: Performed By: #### C BC, PTT, CKMB, BMP, CK, BNP, PT, HS TROP #### [address] Platelet mean volume (Bld) [Entitic vol] 9.7 fL Normal 6.3-10.7 [facility] Comment on above: Performed By: #### C BC, PTT, CKMB, BMP, CK, BNP, PT, HS TROP #### [address] Platelets (Bld) [#/Vol] 219 10*3/uL Normal 150-450 [facility] Comment on above: Performed By: #### C BC, PTT, CKMB, BMP, CK, BNP, PT, HS TROP #### [facility] [address] RBC (Bld) [#/Vol] 4.13 10*6/uL Normal 3.60-5.00 [facility] Comment on above: Performed By: #### C BC, PTT, CKMB, BMP, CK, BNP, PT, HS TROP #### [facility] [address] WBC (Bld) [#/Vol] 6.3 10*3/uL Normal 4.5-11.0 [facility] Comment on above: Performed By: #### C BC, PTT, CKMB, BMP, CK, BNP, PT, HS TROP #### [address] Creatine Kinaseon 02-12-2021 CK [Catalytic activity/Vol] 178 U/L Normal 22-269 [facility] Comment on above: Performed By: #### C BC, PTT, CKMB, BMP, CK, BNP, PT, HS TROP #### [address] Creatinine Kinase MBon 02-12 CK.MB [Mass/Vol] 2.5 ng/mL Normal 0.6-6.3 [facility] Comment on above: Performed By: #### C BC, PTT, CKMB, BMP, CK, BNP, PT, HS TROP #### [address] CKMB Relative Index 1.4 % Normal 0.00-2.50 [facility] Comment on above: Performed By: #### C BC, PTT, CKMB, BMP, CK, BNP, PT, HS TROP #### [address] Partial Thromboplastin Timeo n 02-12-2021 aPTT Coag (Bld) [Time] 29.3 s Normal 25.1-36.5 [facility] Comment on above: Result Comment: PERF ORMED BY: [place] [address] PATHOLOGIST BU[employer] NICANOR BALTAZAR M.D. Performed By: #### C BC, PTT, CKMB, BMP, CK, BNP, PT, HS TROP #### [address] Prothrombin Time INRon 02-12 INR Coag (PPP) [Relative time] 1.0 {INR} Normal [facility] Comment on above: Result Comment: INR [...] BMP, CK, BNP, PT, HS TROP #### [address] PT Coag (PPP) [Time] 11.5 s Normal 9.0-12.9 [facility] Comment on above: Performed By: #### C BC, PTT, CKMB, BMP, CK, BNP, PT, HS TROP #### [address] Troponin I High Sensitivityo n 02-12-2021 Troponin I High Sensitivity 5 pg/mL Normal 0-15 [facility] Comment on above: Result Comment: PERF ORMED BY: [place] [address] PATHOLOGIST BU[employer] NICANOR BALTAZAR M.D. Performed By: #### C BC, PTT, CKMB, BMP, CK, BNP, PT, HS TROP #### [address] XR chest 2V*on 02-12-2021 XR chest 2V* [facility] [place] [address] [place] [address] XRay Report Signed Patient: Alyssa Lopez MR#: [id number] : 1965 Acct:[id number] Age/Sex: 55 / F ADM Date: 02/11/21 Loc: ER Room: Type: [facility] ER Attending Dr: Ordering Provider: Stefan [...] Reid Graves M.D.02/12/2021 9:18 AM Dictation Location: [place] [address] Transcribed By: [facility] 02/12/21917 Dictated By: Reid Graves DO 02/12/21914 Signed By: 02/12/21917 Normal [facility] ECG 12 lead ECGon 02-11-2021 ECG 12 lead ECG [facility] [place] [address] [place] [address] Electrocardiograph Report Signed Patient: Alyssa Lopez MR#: [id number] : 1965 Acct:[id number] Age/Sex: 55 / F ADM Date: 02/11/21 Loc: ER Room: Type: [facility] ER Attending Dr: Ordering Provider: Stefan Carolina [...] ECGs available Confirmed by Stefan Carolina DO ([id number]) on 02/11/2021 11:41:46 PM Referred By: Electronically Signed By:Stefan Carolina DO Transcribed By: MUS Signed By Stefan Carolina DO 02/11 2341 [facility] Vital Signs Date Time Vital Sign Value Performing Clinician Homa [email or web address] 05-26-2022 08:49-0500 Blood Pressure Location Hoda SALMON [facility] 05-26-2022 08:49-0500 Diastolic blood pressure 74 mm[Hg] Hodaallison SALMON [facility] 05-26-2022 08:49-0500 Heart rate 70 /min Hodaallison SALMON [facility] 05-26-2022 08:49-0500 Respiratory rate 16 /min Hoda SALMON [facility] 05-26-2022 08:49-0500 Systolic blood pressure 128 mm[Hg] Hoda SALMON [facility] Encounters Encounter Date Encounter Type Care Provider Facility Start: 01-14-2024 End: 01-14-2024 ambulatory LUCIO MIXON Facility:[facility] Start: 01-14-2024 End: 01-14-2024 Patient encounter procedure Lucio Mixon MD Work Phone: Orthopaedic Surgery [facility] Comment on above: Primary osteoarthrit is of first carpometacarpal joint of left hand (Primary Dx) Start: 12-29-2023 End: 12-29-2023 ambulatory Allen Noriega [place] [place]: 12-29-2023 End: 12-29-2023 Patient encounter procedure Allen Noriega [facility] Start: 12-24-2023 End: 12-24-2023 ambulatory Allen Noriega [place] [place] Start: 12-24-2023 End: 12-24-2023 Lab Drop off Allen Noriega [facility] Start: 09-29-2023 Telephone encounter Ines Coker MD Work Phone: Neurology Comment on above: EMG- FAXED RESULTS Start: 09-29-2023 End: 09-29-2023 ambulatory INES COKER Neurology EMG [facility] Start: 09-29-2023 End: 09-29-2023 Patient encounter procedure Emg 2 Neur Formerly [facility] (Max Weight 400) Neurology [facility] Start: 08-28-2023 Telephone encounter Ines Coker MD Work Phone: Neurology Comment on above: EMG Instructions Start: 08-25-2023 Orders Only Laine pimentel CNP Work Phone: Neurology Comment on above: Sprain of left wrist , sequela (Primary Dx); Carpal tunnel syndrome of left wrist Start: 08-20-2023 Telephone encounter Lucio prasad MD Work Phone: Orthopaedic Surgery [facility] Start: 08-13-2023 End: 08-13-2023 Patient encounter procedure Lucio Mixon MD Work Phone: Orthopaedic Surgery [facility] Comment on above: Numbness and tinglin g in left hand (Primary Dx) Start: 08-13-2023 End: 08-13-2023 ambulatory LUCIO MIXON Facility:[facility] Start: 08-13-2023 End: 08-13-2023 Subsequent hospital visit by physician Xr [facility] 1 Xray [facility] Comment on above: Pain [R52] Start: 07-31-2023 Orders Only Lucio Mixon MD Work Phone: Referring Physician Comment on above: Pain (Primary Dx) Start: 07-06-2023 End: 07-06-2023 ambulatory Hoda SALMON Facility:[facility] Start: 07-06-2023 End: 07-06-2023 Patient encounter procedure Hoda SALMON [facility] Start: 06-30-2023 ambulatory [facility] Start: 04-22-2023 ambulatory [facility] Start: 02-10-2023 ambulatory [facility] Start: 11-26-2022 ambulatory [facility] Start: 10-15-2022 End: 10-15-2022 ambulatory [facility] Start: 10-01-2022 End: 10-01-2022 ambulatory [facility] Start: 08-15-2022 Encounter for genera l adult medical examination without abnormal findings DR SHAI LAU . [facility] Start: 08-14-2022 End: 08-15-[address] SHAI LAU . Facility:[facility] Start: 08-14-2022 End: 08-15-2022 Encounter for general adult medical examination without abnormal findings DR SHAI LAU . Facility:[facility] Start: 08-12-2022 End: 08-13-[address] HODA SALMON . Facility:[facility] Start: 05-26-2022 End: 05-26-2022 Patient encounter procedure Hoda SALMON [facility] Start: 05-22-2022 End: 05-23-[address] HODA SALMON . Facility:[facility] Start: 11-15-2021 End: 11-15-[address] SHAI LAU . Facility:[facility] Start: 11-12-2021 End: 11-12-[address] SHAI LAU . Facility:[facility] Start: 07-02-2021 End: 07-02-2021 Lab Drop off EMERITA PRINCE [facility] Start: 07-02-2021 End: 07-02-2021 Patient encounter procedure Toni Carrera Jr. [facility] Procedures Date Procedure Procedure Detail Performing Clinician Start: 09-29-2023 Nerve conduction mary ann dies 5-6 studies Ines Coker MD Work Phone: Start: 08-13-2023 Radex wrist complete minimum 3 views Lucio Mixon MD Work Phone: Start: 02-10-2023 Follow-up visit Follow-up MAX KOWALSKI Start: 03-05-2017 Extracorporeal shock wave lithotripsy of calculus of kidney Toni Carrera Jr. Start: 04-06-2016 Procedure on back Akil malcik Carrera Jr. Start: 04-06-2015 Decompression of med barron nerve Toni Carrera Jr. Start: 04-06-1989 Tonsillectomy Toni de la cruz Jr. Plan of Treatment Date Care Activity Detail Author Start: 12-06-2023 Covid-19 Vaccine () Covid-19 Vaccine () [facility] Start: 12-06-2023 Covid-19 Vaccine () Covid-19 Vaccine () [facility] Start: 12-06-2023 Influenza vaccination C [facility] Start: 09-29-2023 End: 09-29-2023 ambulatory 09/29/2023 9:25 AM EDT Procedure Neurology EMG [facility] [address] [place] [address] EMG STANDARD Neurology EMG [facility] Comment on above: EMG STANDARD Start: 08-13-2023 End: 08-13-2023 Patient encounter procedure Xray [facility] Comment on above: sprain of left wrist , kwesinoah is coming in for seccond opinion, had carple tunnel surgery on this wrist october 02, 2022 Start: 04-06-2023 Behavioral Health Screening Behavioral Health Screening [facility] Start: 12-05-2022 Covid-19 Vaccine () Covid-19 Vaccine () [facility] Start: 12-05-2022 Covid-19 Vaccine ( season) Covid-19 Vaccine ( season) [facility] Start: 06-09-2015 Shingrix Vaccine (1 of 2) Shingrix Vaccine (1 of 2) [facility] Start: 2010 Diabetes Screening Diabetes Screenin g [facility] Start: 2010 Lipid panel [facility] Start: 2010 Screening for malign ant neoplasm of colon [facility] Start: 2005 Screening for malign ant neoplasm of breast Mammogram Screening [facility] Start: 06-09-1995 Screening for malign ant neoplasm of cervix HPV Testing [facility] Start: 1986 Screening for malign ant neoplasm of cervix [facility] Start: 1984 Hepatitis B Vaccine (1 of 3 - 19+ 3-dose series) Hepatitis B Vaccine (1 of 3 - 19+ 3-dose series) [facility] Start: 1984 Urine microalbumin profile DTaP,Tdap,Td Vaccine (1 - Tdap) [facility] Start: 06-09-1983 Anxiety Screening Anxiety Screening [facility] Start: 06-09-1983 Depression Screening Depression Scre ening [facility] Start: 06-09-1983 Hepatitis C screening Hepatitis C Sc reening [facility] Start: 06-09-1983 HIV screening HIV Screening [facility] End: 08-24-2024 EMG(NEURO/NI) EMG(NEURO/NI) EMG Routine Sprain of left wrist, sequela Carpal tunnel syndrome of left wrist 1 Occurrences starting 08/25/2023 until 08/24/2024 [facility] Work Phone: Comment on above: 1 Occurrences starti ng 08/25/2023 until 08/24/2024 End: 08-29-2024 XR Wrist - left 4 Views XR WRIST INJURY 4V PA/LAT/OBL/SCAPH LEFT Radiology Routine Pain 1 Occurrences starting 07/31/2023 until 08/29/2024 [facility] Comment on above: 1 Occurrences starti ng 07/31/2023 until 08/29/2024 End: 08-29-2024 XR Wrist - left PA and Lateral and Oblique XR WRIST GENERAL 3V PA/LAT/OBL LEFT Radiology Routine Pain 1 Occurrences starting 07/31/2023 until 08/29/2024 [facility] Work Phone: Comment on above: 1 Occurrences starti ng 07/31/2023 until 08/29/2024 Immunizations Immunization Date Immunization Notes Care Provider Mihai bradshaw 02-26-2022 influenza virus vaccine, unspecified formulation Lucio Mixon MD Work Phone: [facility] 08-08-2020 SARS-CoV-2 (COVID-19 ) Ad26 vaccine, recombinant Toni Carrera Jr. [facility] 07-18-2020 SARS-CoV-2 (COVID-19 ) Ad26 vaccine, recombinant Toni Carrera Jr. [facility] Payers Date Payer Category Payer Private Health Insurance [facility] PL[facility] [id number] 2023-Present [phone] [address] [address] [place] [address] PPO [id number] 2019 Unknown [id number] 2019 Unknown [id number] 2019 Unknown [id number] 1965 Unknown [id number] .[id number] 1965 Unknown [id number] .[id number] 1965 Unknown [id number] [id number] .[id number] 1965 Unknown [id number] [id number] .2.593 1965 Unknown [id number] [id number] .2.593 1965 Unknown [id number] [id number] .2.593 1965 Unknown [id number] [id number] .2.727 1965 Unknown [id number] [id number] .2.727 1965 Unknown [id number] .[id number] 1959 Unknown [id number] Social History Date Type Detail Facility Start: 07-06-2014 End: 05-13-2021 Tobacco smoking status Never smoked tobacco (finding) [facility] Start: 08-13-2023 End: 01-14-2024 Sex Assigned At Female [facility] Start: 07-28-2014 End: 01-14-2024 Alcohol intake Current drinker of alcohol (finding) [facility] Start: 1965 [facility]igned At [facility] Start: 08-13-2023 End: 01-14-2024 History of Social function [facility] National Score (1-10 0), lower number is lower risk 46 [facility] Functional Status Date Assessment Result Facility 05-26-2022 Functional Status N/A [facility] Clinical Notes 05-26-2022 to 01-14-2024 Lucio Mixon MD - 01/14/2024 12:53 PM EDTTelephone Encounter - Neema Campos - 09/29/2023 2:14 PM EDTTelephone Encounter - Neema Campos - 09/29/2023 2:14 PM EDTRadiology Note Date & Type Note Facility 01-14-2024 Note HNO ID: [id number] Author: LUCIO MIXON MD Service: ? Author Type: Physician Type: Progress Notes Filed: 02/09/2024 08:08 Note Text: Lucio Mixon MD Department of Orthopaedics Orthopaedic Surgery [facility] [address] [address] [facility] [address] Dept: [phone] Dept January 14, 2024 CHIEF COMPLAINT: Pain [...] before without relief. 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 ASSESSMENT: M18.12 [...] studies of the median nerve and normal wrtgoq-bd-nsfnw comparative studies. - No electrodiagnostic evidence of [...] ONE DAILY MULTIVITAMIN ORAL Take by mouth. Whiting-3 Fatty Acids-Vitamin E (FISH OIL) 1,000 mg [...] Psych (no depression, anxiety) Lucio Mixon MD [facility] 01-14-2024 History of Present illness Narrative Lucio Mixon MD Department of Orthopaedics Orthopaedic Surgery [facility] [address] [address] [facility] [address] Dept: [phone] Dept January 14, 2024 CHIEF COMPLAINT: Pain [...] before without relief. 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 ASSESSMENT: M18.12 [...] studies of the median nerve and normal mtieou-kj-ebrbz comparative studies. - No electrodiagnostic evidence of [...] ONE DAILY MULTIVITAMIN ORAL Take by mouth. Whiting-3 Fatty Acids-Vitamin E (FISH OIL) 1,000 mg [...] Lucio Mixon MD documented in this encounter [facility] 09-29-2023 Telephone encounter Note Results from EMG performed on 09/29/2023 were faxed to Laine Granger at fax number on 09/29/2023. Fax confirmation received. [facility] 09-29-2023 Miscellaneous Notes Results from EMG performed on 09/29/2023 were faxed to Laine Granger at fax number on 09/29/2023. Fax confirmation received. documented in this encounter [facility] 09-29-2023 History of Present illness Narrative [...] MD Neuromuscular Medicine (NM) Staff [facility] documented in this encounter [facility] 09-29-2023 Note HNO ID: [id number] Author: RAMSEY NDIAYE MD Service: ? Author [...] MD Neuromuscular Medicine (NM) Staff [facility], [facility] [place] [facility] 08-28-2023 Telephone encounter Note Spoke [...] testing. Patient expressed understanding with these instructions. [facility] 08-28-2023 Miscellaneous Notes Spoke with Alyssa [...] with these instructions. documented in this encounter [facility] 08-24-[address] Mixon's note still not completed, I did call Nayeli at [facility]. We did discuss that the patient needs to find their old nerve conduction study and get a new nerve conduction study (Study can be request by POR) and then should follow-up with Dr. Mixon to discuss both. [facility] Work Phone: 08-24-[address] [...] for the 08/13/23 visit. Please fax to [phone] Callback number: [phone] Fax Number (if necessary): [phone] Additional info if needed (Prior Auth #, Claim #, etc ): N/A Karly Leija documented in this encounter [facility] 08-20-2023 Telephone encounter Note Name of Caller: Nayeli at [facility] [employer] Relationship to patient: Last visit in this department: 08/13/2023 Reason for Call: Other : Nayeli calling from [facility] to get office notes and any test results if applicable for the 08/13/23 visit. Please fax to [phone] Callback number: [phone] Fax Number (if necessary): [phone] Additional info if needed (Prior Auth #, Claim #, etc ): N/A Karly Leija [facility] 08-13-2023 Note HNO ID: [id number] Author: LUCIO MIXON MD Service: ? Author Type: Physician Type: Progress Notes Filed: 09/08/2023 16:53 Note Text: Lucio Mixon MD Department of Orthopaedics Orthopaedic Surgery [facility] [address] [address] [facility] [address] Dept: [phone] Dept August 13, 2023 CHIEF COMPLAINT: New [...] her origional EMG test. SHe'll have her [facility] get an c9 for a [...] ONE DAILY MULTIVITAMIN ORAL Take by mouth. Whiting-3 Fatty Acids-Vitamin E (FISH OIL) 1,000 mg [...] physician via US mail. Laine Granger CNP [facility] [address] Lucio Mixon MD [facility] 08-13-2023 History of Present illness Narrative Lucio Mixon MD Department of Orthopaedics Orthopaedic Surgery [facility] [address] [address] [facility] [address] Dept: [phone] Dept August 13, 2023 CHIEF COMPLAINT: New [...] her origional EMG test. SHe'll have her [facility] get an c9 for a [...] ONE DAILY MULTIVITAMIN ORAL Take by mouth. Whiting-3 Fatty Acids-Vitamin E (FISH OIL) 1,000 mg [...] physician via US mail. Laine Granger CNP [facility] [address] Lucio Mixon MD documented in this encounter [facility] 08-13-2023 History of Present illness Narrative [...] PATIENT PRESENTS WITH AN IMPLANTABLE OR ATTACHED CUSTOMER SERVICE SPECIALIST: No RADIOLOGY DEPARTMENT: General X-ray: Exam(s) Completed: Upper Extremity X-Ray(s): Wrist, left PERIPHERAL IV DATA: Not applicable SIGNED BY: RT Brian(Gabriel) August 13, 2023 9:24 AM documented in this encounter [facility] 08-13-2023 Note HNO ID: [id number] Author: CONSTANCE VERMA RT(Gabriel) Service: ? Author [...] PATIENT PRESENTS WITH AN IMPLANTABLE OR ATTACHED CUSTOMER SERVICE SPECIALIST: No RADIOLOGY DEPARTMENT: General X-ray: Exam(s) Completed: Upper Extremity X-Ray(s): Wrist, left PERIPHERAL IV DATA: Not applicable SIGNED BY: RT Brian(R) August 13, 2023 9:24 AM [facility] 04-22-2023 Note Patient ID: Alyssa [...] to verify the correct patient, procedure, equipment, patient support partner and site/side marked as required. [facility] 11-07-2023 Note Orthopedic Surgery Subjective 10/01/2022 Carpal [...] disease) Kidney stone Migraines Objective Left Hand: Zxosykepuh-zeap-phuzzg scar from carpal tunnel incision. Thumb: normal A1 winnie and AROM, Index finger: normal A1 winnie and AROM, Long finger: normal A1 winnie and AROM, Ring finger: normal A1 winnie and AROM, and Small finger: normal A1 winnie and AROM Strength: survey research center director 4+/5, thumb 4+/5, interossei 5/5 Sensation: intact [...] and see her back at that time. [facility] 11-26-2022 Note Attestation signed by Max [...] disease) Kidney stone Migraines Objective Left Hand: Hnqhzlfcuw-ecrw-ihafni scar from carpal tunnel incision. Thumb: normal A1 winnie and AROM, Index finger: normal A1 winnie and AROM, Long finger: normal A1 winnie and AROM, Ring finger: normal A1 winnie and AROM, and Small finger: normal A1 winnie and AROM Strength: survey research center director 5/5, thumb 5/5, interossei 5/5 Sensation: intact [...] SHERIFF MD Orthopedic Surgery, PGY-2 Ortho Pager [phone] 11/26/22 3:14 PM [facility] 10-15-2022 Note Attestation signed by Max [...] SHERIFF MD Orthopedic Surgery, PGY-2 Ortho Pager [phone] 10/15/22 1:20 PM [facility] 10-01-2022 Note Patient: Guillermina curry Procedure Summary Date: 10/01/22 Room / Location: [facility] OR [address] [place] [address] [facility] OR Anesthesia Start: 0834 Anesthesia Stop: [...] per anesthesia protocol. No notable events documented. [facility] 10-01-2022 Note Patient: Guillermina curry Procedure Information Date/Time: 10/01/22829 Procedure: CARPAL TUNNEL RELEASE (Left: Hand) Location: [address] OR Surgeons: Max Kowalski MD Relevant [...] Plan discussed with attending. Additional Equipment Requests [facility] 05-26-2022 Hospital Discharge instructions Follow Up Care 05/26/2022 09:33:22 With:JEFFREY AVELAR, Hoda Rios, URL Address: [facility] [address] [place] [address] [phone] When: Unknown [facility] [place] 05-26-2022 Hospital Discharge instructions Patient [...] include: ?Spinach. ?Rhubarb. ?Beets. ?Potato chips and slovak fries. ?Nuts. If you regularly take a diuretic medicine, make sure to eat at least 1 2 fruits or vegetables high in potassium each day. These include: ?Avocado. ?Banana. ?[place], prune, carrot, or tomato juice. ?Baked potato. [...] Casseroles. Pizza. Lasagna. Frozen meals. Potato chips. Kazakh fries. Summary You can reduce your risk [...] 07/18/2011 Document Revised: 07/13/2019 Document Reviewed: 03/03/2017 [employer] Patient Education 2020 [employer]. Follow Up Care 05/13/2021 09:33:00 With:Hoda SALMON MD, URL Address: [facility] [address] [place] [address]- When: Unknown [facility] Evaluation + Plan note Future Appointments Appointment Date:05/26/2022 08:45:00 AM Scheduled Provider:Hoda SALMON MD Location:[facility] Appointment Type:URO Office Visit [facility] Evaluation + Plan note Future Appointments Appointment Date:05/26/2022 08:45:00 AM Scheduled Provider:Hoda SALMON MD Location:[facility] Appointment Type:URO Office Visit Diagnostic Tests PendingUrine Culture 07/02/[address] [facility] Evaluation + Plan note Future Appointments Appointment Date:05/29/2023 08:00:00 AM Scheduled Provider:Hoda SALMON MD Location:[facility] Appointment Type:URO Office Visit [facility] Evaluation + Plan note Future Appointments Appointment Date:12/30/2023 12:00:00 PM Scheduled Provider: [facility] Appointment Type:US Abdominal/Pelvis () Diagnostic Tests PendingReference Lab Notification 12/24/23 Future Scheduled TestsUS Pelvis Non-OB Complete 12/30/23US Transvaginal Non-OB 12/30/[address] [facility] Evaluation note Diagnosis Pain- Primary Generalized [...] Pain Generalized pain [facility] Primary osteoarthritis of first carpometacarpal joint of left hand- Primary Primary localized osteoarthrosis, hand [facility] Narrative No data available for this section [facility] Hospital Discharge instructions No data available for this section [facility] progress note No data available for this section [facility] reason for referral (narrative)* Diagnostic Procedure Only (Routine) - Pending Review Specialty Diagnoses / Procedures Referred By Contac t Referred To Contact XR IMAGING Diagnoses Pain Procedures XR WRIST INJURY 4V PA/LAT/OBL/SCAPH LEFT RADEX WRIST COMPLETE MINIMUM 3 VIEWS Lucio Mixon MD [address] [place] [address] Xr Imaging [facility] Referral ID Status Reason Start Date Expiration Date Visits Requested Visits Authorized [id number] Pending Review Auto-Generat ed Referral 07/31/2023 08/29/2024 1 1 * Diagnostic Procedure Only (Routine) - Authorized Specialty Diagnoses / Procedures Referred By Contac t Referred To Contact XR IMAGING Diagnoses Pain Procedures XR WRIST GENERAL 3V PA/LAT/OBL LEFT RADEX WRIST COMPLETE MINIMUM 3 VIEWS Lucio Mixon MD [address] [place] [address] Xr Imaging [facility] Referral ID Status Reason Start Date Expiration Date Visits Requested Visits Authorized [id number] Authorized Auto-Generat ed Referral 07/31/2023 08/29/2024 1 1 [facility] for referral (narrative)* Outpatient Procedure (Routine) - Pending Review Specialty Diagnoses / Procedures Referred By Contac t Referred To Contact [facility] Diagnoses Sprain of left wrist, sequela Carpal tunnel syndrome of left wrist Procedures EMG(NEURO/NI) NERVE CONDUCTION STUDIES 9-10 STUDIES Ines Coker MD [address] [place] [address] [facility] [place] [address] [place], [place] [id number] Referral ID Status Reason Start Date Expiration Date Visits Requested Visits Authorized [id number] Pending Review Auto-Generat ed Referral 08/25/2023 08/24/2024 1 1 [facility] Summary Purpose Family History No Family [...] Lucio Mixon MD [address] [place] [address] [place] [id number] Referral ID Status Reason Start Date Expiration Date V isits Requested Visits Authorized [id number] Closed Auto-Generat ed Referral Patient Cleared - Admin/Chairm an/Director advise to proceed or did not respond 08/13/2023 08/13/2023 1 1 Additional Source Comments INFORMATION SOURCE (unrecogn ized section and content) DATE CREATED AUTHOR 05/29/2021 [facility] DATE CREATED AUTHOR AUTHOR'S ORGANIZ ATION 08/21/2022 [facility] DATE CREATED AUTHOR AUTHOR'S ORGANIZ ATION 07/01/2023 [facility] DATE CREATED AUTHOR AUTHOR'S ORGANIZ ATION 12/31/2023 [facility] DATE CREATED AUTHOR AUTHOR'S ORGANIZ ATION 01/02/2024 [facility] DATE CREATED AUTHOR AUTHOR'S ORGANIZ ATION 01/05/2024 [place] [facility] DATE CREATED AUTHOR AUTHOR'S ORGANIZ ATION 02/10/2024 [facility] Patient Care team informatio n (unrecognized section and content) Clinical Material Handler Relationship Specialty Start Date End Date Laine Granger CNP [address] [place] [address] Family Medicine 07/24/23 Clinical Material Handler Relationship Specialty Start Date End Date Laine Granger LYLY [address] [place] [facility] [place] [address] Referring Family Medicine 07/24/23 Clinical Material Handler Relationship Specialty Start Date End Date Laine Granger LYLY [address] [place] [facility] [place] [address] Referring Family Medicine 07/24/23 Clinical Material Handler Relationship Specialty Start Date End Date Laine Granger LYLY [address] [place] [address] Referring Family Medicine 07/24/23 Clinical Material Handler Relationship Specialty Start Date End Date Lawrence GrangeristinaLYLY [address] [place] [facility] [place] [address] Referring Family Medicine 07/24/23 Clinical Material Handler Relationship Specialty Start Date End Date Laine GrangerLYLY [address] [place] [facility] [place] [address] Referring Family Medicine 07/24/23 Clinical Material Handler Relationship Specialty Start Date End Date Amaris GrangerLYLY kay [address] [place] [address] Referring Family Medicine 07/24/23 Source Comments (unrecognize d section and content) In the event this informatio n is protected by the Federal Confidentiality of Alcohol and Drug Abuse Patient Records regulations: The Federal rules restrict any use of the information to criminally investigate or prosecute any alcohol or drug abuse patient.[facility] the event this information is protected by the Federal Confidentiality of Alcohol and Drug Abuse Patient Records regulations: The Federal rules restrict any use of the information to criminally investigate or prosecute any alcohol or drug abuse patient.[facility] HospitalIn the event this information is protected by the Federal Confidentiality of Alcohol and Drug Abuse Patient Records regulations: The Federal rules restrict any use of the information to criminally investigate or prosecute any alcohol or drug abuse patient.[facility] Hospital[facility] the event this information is protected by the Federal Confidentiality of Alcohol and Drug Abuse Patient Records regulations: The Federal rules restrict any use of the information to criminally investigate or prosecute any alcohol or drug abuse patient.[facility] HospitalIn the event this information is protected by the Federal Confidentiality of Alcohol and Drug Abuse Patient Records regulations: The Federal rules restrict any use of the information to criminally investigate or prosecute any alcohol or drug abuse patient.[facility] HospitalIn the event this information is protected by the Federal Confidentiality of Alcohol and Drug Abuse Patient Records regulations: The Federal rules restrict any use of the information to criminally investigate or prosecute any alcohol or drug abuse patient.[facility] HospitalIn the event this information is protected by the Federal Confidentiality of Alcohol and Drug Abuse Patient Records regulations: The Federal rules restrict any use of the information to criminally investigate or prosecute any alcohol or drug abuse patient.[facility] HospitalIn the event this information is protected by the Federal Confidentiality of Alcohol and Drug Abuse Patient Records regulations: The Federal rules restrict any use of the information to criminally investigate or prosecute any alcohol or drug abuse patient.[facility] HospitalIn the event this information is protected by the Federal Confidentiality of Alcohol and Drug Abuse Patient Records regulations: The Federal rules restrict any use of the information to criminally investigate or prosecute any alcohol or drug abuse patient.[facility] Reason for Visit (unrecogniz ed section and content) Reason Comments EMG Instructions Reason Comments New Pain Specialty Diagnoses / Procedures Referred By Contac t Referred To Contact Orthopedics / ORTHOPAEDIC SURGERY Diagnoses sprain of left wrist, alin is coming in for seccond opinion, had carple tunnel surgery on this wrist october 02, 2022 Procedures [facility] Laine Granger, RETAIL PERFORMANCE SPECIALIST [address] [place] [address] Lucio Mixon MD [address] [place] [address] Referral ID Status Reason Start Date Expiration Date V isits Requested Visits Authorized [id number] Closed Patient Cleared - Admin/Chairm an/Director advise to proceed or did not respond 08/13/2023 08/13/2023 1 1 Specialty Diagnoses / Procedures Referred By Contac t Referred To Contact [facility] Diagnoses Sprain of left wrist, sequela Carpal tunnel syndrome of left wrist Procedures [facility](NEURO/NI) NERVE CONDUCTION STUDIES 9-10 STUDIES Ines Coker MD [address] [place] [address] Neurological [place] [address] [id number] Referral ID Status Reason Start Date Expiration Date V isits Requested Visits Authorized [id number] Closed Auto-Generate d Referral 09/29/2023 10/29/2023 1 1 Reason Comments EMG- FAXED RESULTS Reason Comments Radio Gen RMP Specialty Diagnoses / Procedures Referred By Contac t Referred To Contact XR IMAGING Diagnoses Pain Procedures XR WRIST GENERAL 3V PA/LAT/OBL LEFT RADEX WRIST COMPLETE MINIMUM 3 VIEWS Lucio Mixon MD [address] [place] [address] Xr Imaging [id number] Referral ID Status Reason Start Date Expiration Date V isits Requested Visits Authorized [id number] Closed Auto-Generat ed Referral Patient Cleared - [...] Lucio Mixon MD [address] [place] [address] [place] [id number] Referral ID Status Reason Start Date Expiration Date V isits Requested Visits Authorized [id number] Closed Auto-Generate d Referral 01/07/2024 01/14/2024 1 [...] BE BASED ON THE PRIMARY CLINICAL RECORDS. [employer] provides no warranty or guarantee of the accuracy or completeness of information in this document.
[2024-02-26 08:10] VITALS: BP 128/70; PULSE 60; O2SAT 97
== END 2024-02-26 08:45 | disposition home or self-care (01) ==
LOC: VC 07:56
PROVIDERS: PCP Radiology Diagnostic Radiology; Visit Provider Radiology Diagnostic Radiology
DX: I83.813 Varicose veins of bilateral lower extremities with pain (principal)
CPT/HCPCS: 36466

== ENCOUNTER 2024-03-02 07:27 | Outpatient (OUT) | payer OTHER, SELFPAY ==
--- NOTE | 2024-03-02 07:28 | VEIN_ITS ---
Patient Name: KASSANDRA LOPEZ MR#: [id number] : 1965 Exam Date: 03/02/2024 Ordering Doctor: DR WIL CARLIN M.D. RADIOLOGY REPORT PROCEDURE: [facility] EST [facility] - OFFICE VISIT FOLLOW UP COMPARISON: [facility], 02/17/2024. PROGRESS NOTES: The patient reports improvement in leg symptoms. There has been interval reduction in varicosities. The patient has followed our recommendations to walk 20-30 minutes once or twice per day since the procedure. Physical exam demonstrates decrease in varicosities of the leg. Persistent varicosities are identified along the legs bilaterally. Review of the ultrasound performed the same day demonstrates occlusive thrombus extending throughout the treated vein(s), see separate report, consistent with a successful ablation. No thrombus extending into or beyond the saphenofemoral junction. The patient expressed a desire to proceed with treatment of remaining incompetent varicosities. The patient was informed that treatment was a process and would require several procedures/sessions. [facility]: 1. Successful ablation of the left leg treated branch saphenous vein(s). 2. Persistent varicose veins and lower extremity symptoms. PLAN: 1. Microfoam chemical ablation of right leg incompetent branch saphenous varicosities. Nurse notes, history and physical were reviewed and confirmed, see attached forms. The nurse was present throughout the physical exam and consultation Dictated by: Wil Carlin M.D. on 03/02/2024 at 08:08 Approved by: Wil Carlin M.D. on 03/02/2024 at 08:09
--- NOTE | 2024-03-02 07:28 | VEIN_ITS ---
Patient Name: KASSANDRA LOPEZ MR#: [id number] : 1965 Exam Date: 03/02/2024 Ordering Doctor: DR WIL CARLIN M.D. RADIOLOGY REPORT PROCEDURE: VC EXT VENOUS LT LIMITED COMPARISON: VC EXT VENOUS LT LIMITED, 02/17/2024. INDICATIONS: I80.02 - Phlebitis and thrombophlebitis of superficial veins left leg TECHNIQUE: Lower extremity bone scale and Duplex Doppler evaluation of the deep venous system from the inguinal ligament through the calf veins. FINDINGS: REGION: Left lower extremity. THROMBI: Negative for DVT. 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 COMPRESSIBILITY: Non-compressible & partially compressible segments. Non-compressible segments corresponding to thrombus FLOW: Areas of no flow corresponding to thrombus OTHER: Multiple large varicose veins remain. Largest is 6.7 mm in prox medial calf. CONCLUSION: 1. Successful post ablation occlusion of left leg treated branch saphenous varicosities. Dictated by: Wil Carlin M.D. on 03/02/2024 at 08:07 Approved by: Wil Carlin M.D. on 03/02/2024 at 08:08
--- OUTSIDE RECORDS SUMMARY | 2024-03-02 07:29 | XMS_ITS | CCD ---
Author Organization [facility] Care Team Providers Care Divine Healer Name Role Phone Shai Lau Primary Care Physician [phone] ., DR DRUMMOND Consulting Unavailable SALMON [...] Drug Allergy 02-22-20 16 .. [facility] (18 sources) PHENobarbital; Translations: [phenobarbital] Drug Allergy 07-07-19 15 Unknown [facility] (7 sources) Sulfonamides (Antibiotic); Translations: [sulfa drugs] Drug allergy RASH [facility] (1 source) benzoin resin Drug Allergy 08-21-19 16 [facility] (1 source) levoFLOXacin Drug Allergy 08-21-19 16 [facility] (1 source) Sulfonamides (Antibiotic) Drug allergy (disorder) 08-21-19 16 [facility] (11 sources) Sulfamethoxazole / Trimethoprim; Translations: [SULFAMETHOXAZOLE-TR IMETHOPRIM] Drug Allergy 07-07-19 15 Rash [facility] (1 source) Sulfonamides (Antibiotic); Translations: [SULFA (SULFONAMIDE ANTIBIOTICS)] Propensity to adverse reactions to drug (disorder) 12-20-19 15 [facility] Medications Current Medications Medication Drug [...] day(s), # 14 cap(s), Refills(s) 0, Pharmacy: [facility]/pharmacy #[id number], 161, cm, 05/13/21 9:04:00 EST, Height/Length Dosing, 91.5, kg, 05/13/21 9:04:00 EST, Weight Dosing Start Date: 07/02/21 Stop Date: 07/09/21 Status: Ordered fluconazole 150 mg oral tablet (2 sources) Azole Antifungal Start: 07-02-2021 End: 07-09-2021 Diflucan 150 mg Tab See Instructions, 1 tab po q72 hrs x 3 doses, then dc, # 3 tab(s), Refills(s) 0, Pharmacy: [facility]/pharmacy #[id number], 161, cm, 05/13/21 9:04:00 [...] 0, Prophylaxis Start Date: 01/11/16 Status: Ordered [place]-3 Fatty Acids-Vitamin E (FISH OIL) 1,000 mg cap (9 sources) [place]-3 Fatty Acids-Vitamin E (FISH OIL) 1,000 mg cap Take 1 capsule by mouth. Active [place]-3 Fatty Ac ids-Vitamin E (FISH OIL) 1,000 [...] CNOV Office Visit (OTMBHT ) ALYSSA LOPEZ ([id number]) 1965 F Date Time Provider Department 01/14/24 12:40 PM LUICO MIXON During your visit today, we recorded the following information about you: Lucio Mixon MD 02/09/2024 8:08 AM Signed Lucio Mixon MD Department of Orthopaedics Orthopaedic Surgery [facility] [address] [facility] [address] Dept: [phone] Dept January 14, 2024 CHIEF COMPLAINT: Pain [...] before without relief. 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 ASSESSMENT: M18.12 [...] studies of the median nerve and normal kfauhz-tt-ytine comparative studies. - No electrodiagnostic evidence of [...] ONE DAILY MULTIVITAMIN ORAL Take by mouth. [place]-3 Fatty Acids-Vitamin E (FISH OIL) 1,000 mg [...] Lucio Mixon MD Referring Provider: LUCIO MIXON [[id number]] Allergies As of Date: 01/14/2024 Noted Allergy [...] DAILY MULTIVITAMIN ORAL Take by mouth. - [place]-3 Fatty Acids-Vitamin E (FISH OIL) 1,000 mg cap Take 1 capsule by mouth. - amitriptyline (ELAVIL) 10 mg tablet Take 10 mg by mouth daily at bedtime. - metoclopramide HCl (REGLAN) 5 mg tablet Take 5 mg by mouth daily at bedtime. Problem List As Of Date: 01/14/2024 (None) Letter Text Encounter Status:Closed by LUCIO MIXON on 02/09/24 Normal [facility] Reference Lab Notificationon 01-01-2024 Results Report See Ref Lab Report Normal [facility] Comment on above: Performed By: #### 2 [id number] #### [facility] [address] [place] [address] US Pelvis Non-OB Completeon 01-01-2024 US Pelvis [...] Transabdominal Ultrasound Performed Transvaginal Ultrasound Performed Normal [facility] US Transvaginal Non-OBon US Transvaginal Non-OB Exam Date/Time: 12/29/2023 17:34 EDT Reason for Exam: N95.0 Report Review ultrasound pelvis non-OB complete for report of the US transvaginal non-OB. Ordering Provider: Allen Noriega FINAL REPORT Dictated: 01/01/2024 2:11 pm Rodríguez Schultz MD Signed (Electronic Signature): 01/01/2024 2:11 pm Signed by: Rodríguez Schultz MD Transcribed by: OLIVIA Technologist: LAWRENCE Normal [facility] TEST IN QUESTION - CYTOLOGYo n 12-29-2023 CONTAINER TYPE: TP Normal [facility] Comment on above: Order Comment: FASTI NG: UNKNOWN Performed By: #### 3 [id number] #### [facility] [address], [address] [place] [id number] Systems Test Engineer: Dmitri Maradiaga MD QUESTION/PROBLEM Normal [facility] Comment on above: Order Comment: FASTI NG: UNKNOWN Result Comment: PER CESILIA Salcedo AT CLIENT OFFICE, RUN TEST CODE [id number]. Performed By: #### 3 [id number] #### [facility] [address], [address] [place] [address] Systems Test Engineer: Dmitri Maradiaga MD Reference Lab Notificationon 12-28-2023 Ref Lab [facility] Normal [facility] Comment on above: Performed By: #### 2 [id number] #### [facility] [address] [place] [address] [facility] 09-29-2023 CNPN Telephone (EMGMN) ALYSSA LOPEZ ([id number]) 1965 F Date Time Provider Department 09/29/23 [...] DAILY MULTIVITAMIN ORAL Take by mouth. - [place]-3 Fatty Acids-Vitamin E (FISH OIL) 1,000 mg cap Take 1 capsule by mouth. - amitriptyline (ELAVIL) 10 mg tablet Take 10 mg by mouth daily at bedtime. - metoclopramide HCl (REGLAN) 5 mg tablet Take 5 mg by mouth daily at bedtime. Problem List As Of Date: 09/29/2023 (None) Encounter Status:Closed by NEEMA CAMPOS on 09/29/23 Normal [facility] EMG(NEURO/NI)on 09-29-2023 Results can be seen in attached scanned documents. If you are a patient reviewing this test result, call the doctor who ordered the test with any questions. [facility] 08-28-2023 CNPN Telephone (EMGMN) ALYSSA LOPEZ ([id number]) 1965 F Date Time Provider Department 08/28/23 [...] DAILY MULTIVITAMIN ORAL Take by mouth. - [place]-3 Fatty Acids-Vitamin E (FISH OIL) 1,000 mg cap Take 1 capsule by mouth. - amitriptyline (ELAVIL) 10 mg tablet Take 10 mg by mouth daily at bedtime. - metoclopramide HCl (REGLAN) 5 mg tablet Take 5 mg by mouth daily at bedtime. Problem List As Of Date: 08/28/2023 (None) Encounter Status:Closed by MANDY PRECIADO on [facility]/28/23 [facility] Tele[facility] (OTMBHT) ALYSSA LOPEZ ([id number]) 1965 F Date Time Provider Department 08/20/23 LUCIO MIXON During your visit today, we recorded the following information about you: Karly Leija 08/20/2023 9:18 AM Signed Name of Caller: Nayeli at [employer] Relationship to patient: Last visit in this department: 08/13/2023 Reason for Call: Other : Nayeli calling from [facility] to get office notes and any test results if applicable for the 08/13/23 visit. Please fax to [phone] Callback number: [phone] Fax Number (if necessary): [phone] Additional info if needed (Prior Auth #, Claim #, etc?): N/A Valentina Bella PA-C 08/24/2023 9:[address] Mixon's note still not completed, I did call Nayeli at [employer]. We did discuss that the patient needs [...] DAILY MULTIVITAMIN ORAL Take by mouth. - [place]-3 Fatty Acids-Vitamin E (FISH OIL) 1,000 mg cap Take 1 capsule by mouth. - amitriptyline (ELAVIL) 10 mg tablet Take 10 mg by mouth daily at bedtime. - metoclopramide HCl (REGLAN) 5 mg tablet Take 5 mg by mouth daily at bedtime. Problem List As Of Date: 08/20/2023 (None) Encounter Status:Closed by VALENTINA LINDSEY on 08/24/23 Normal [facility] CNOVon 08-13-2023 CNOV Office Visit (OTMBHT ) ALYSSA LOPEZ ([id number]) 1965 F Date Time Provider Department 08/13/23 9:20 AM LUCIO MIXON During your visit today, we recorded the following information about you: Lucio Mixon MD 09/08/2023 4:53 PM Signed Lucio Mixon MD Department of Orthopaedics Orthopaedic Surgery [facility] [address] [facility] [address] Dept: [phone] Dept August 13, 2023 CHIEF COMPLAINT: New [...] her origional EMG test. SHe'll have her [facility] get an c9 for a [...] ONE DAILY MULTIVITAMIN ORAL Take by mouth. [place]-3 Fatty Acids-Vitamin E (FISH OIL) 1,000 mg [...] US mail. Laine Granger CNP [address] [facility] [address] Lucio Mixon MD Referring Provider: LAINE GRANGER [[id number]] Allergies As of Date: 08/13/2023 Noted Allergy Reaction BACTRIM (SULFAMETHOXAZOLE-TRI METH*07/06/2014 2 - Rash PHENOBARBITAL 07/06/2014 16 - Unknown Date Reviewed: 08/13/2023 Reviewed by: Nargis Stiles MA - Fully Assessed Reason for Visit: New [164445] Pain [78] Primary Visit Diagnosis:Numbness and tingling in left hand [R20.0, R20.2] Prescriptions as of 09/08/2023 - ONE DAILY MULTIVITAMIN ORAL Take by mouth. - [place]-3 Fatty Acids-Vitamin E (FISH OIL) 1,000 mg cap Take 1 capsule by mouth. - amitriptyline (ELAVIL) 10 mg tablet Take 10 mg by mouth da (more content not included)... Normal [facility] XR WRIST 3V PA/LAT/OBL LTon 08-13-2023 XR [...] IMPRESSION: REMOTE POSTSURGICAL AND DEGENERATIVE CHANGES DESCRIBED Instrument Worker: KASSI Transcribe Date/Time: Aug 13 2023 10:48A Dictated by : SARITA WILEY MD This examination was interpreted and the report reviewed and electronically signed by: SARITA WILEY MD on Aug 13 2023 10:50AM EST [id number] Normal [facility] XR Wrist - left PA and Later al and Obliqueon 08-13-2023 IMPRESSION: REMOTE POSTSURGICAL AND DEGENERATIVE CHANGES DESCRIBED Instrument Worker: KASSI Transcribe Date/Time: Aug 13 2023 10:48A [...] soft tissue swelling. DIVISION OF RADIOLOGY [facility], [facility] * * *Final Report* [...] IMPRESSION: REMOTE POSTSURGICAL AND DEGENERATIVE CHANGES DESCRIBED Instrument Worker: KASSI Transcribe Date/Time: Aug 13 2023 10:48A Dictated by : SARITA WILEY MD This examination was interpreted and the report reviewed and electronically signed by: SARITA WILEY MD on Aug 13 2023 10:50AM EST [facility] Radiology Study observation (narrative) [facility] XR Wrist - left PA and Later al and ObliqueOrdered By: Ccf Provider on 08-13-2023 [facility] ic Provider Letteron 04-23-2023 Provider Letter April 23, 2023 ALYSSA LOPEZ [address] [place] [address] : 1965 Dear Alyssa , We have [...] [facility] [address], [place] [address] [facility] Follow-Upon 04-22-2023 Follow-Up [id number] Alyssa Lopez 1965 Provider Department Center 04/22/2023 MAX MUSTAFA MP [facility] Family History Family history unknown: Yes Level of Service:16734 RI OFFICE/OUTPT VISIT,PROCEDURE ONLY Reason for Visit and Comments: Follow-up [308619] - Constant tingling - thumb goes numb when driving or holding something for a bit and the numbness also goes into the middle finger as well. Pain [136] - Constant tingling - thumb goes numb when driving or holding something for a bit and the numbness also goes into the middle finger as well. [facility] Follow-Upon 02-10-2023 Follow-Up [id number] Alyssa Lopez 1965 Date Provider Department Center 02/10/2023 MAX MUSTAFA MP ORTHO MPORTHO Family History Family history unknown: Yes Level of Service:49176 RI OFFICE/OUTPATIENT ESTABLISHED LOW MDM 20-29 MIN Reason for Visit and Comments: Follow-up [063184] [facility] Follow-Upon 11-26-2022 Follow-Up [id number] Alyssa Lopez 1965 F Date Provider Department Center 11/26/2022 MAX MUSTAFA MP Family History Family history unknown: Yes Level of Service:48353 RI OFFICE/OUTPATIENT ESTABLISHED LOW MDM 20-29 MIN Reason for Visit and Comments: Pain [136] Follow-up [003727] [facility] Office Visiton 10-15-2022 Follow-up visit [id number] Alyssa Lopez 1965 F Date Provider Department Center 10/15/2022 MAX MUSTAFA MP Family History Family history unknown: Yes Level of Service:31097 RI POSTOP FOLLOW UP VISIT RELATED TO ORIGINAL PX (GC) Reason for Visit and Comments: Post-op [483] Follow-up [049036] [facility] 36on 10-02-2022 36 I spoke to the patient to see how she is doing after her recent surgery with Dr Kowalski. Ms Lopez stated she is doing well and that her pain is manageable with medications. She has a follow up with Dr Kowalski on October 15 at 120. She had no other questions or concerns. [facility] HPon 10-01-2022 HP History Of [...] Problems: Hyperlipidemia L C TR Normal [facility] OPNOTEon 10-01-2022 OPNOTE Operative Note Patient: Guillermina Lopez Date of Surgery: 10/01/2022 : 1965 Pre-operative Diagnosis: Carpal Tunnel Syndrome left Hand Post-operative Diagnosis: same Operation: Carpal Tunnel Release, left (90312) Surgeon: Max Kowalski MD Sports Team Manager: Drew Chacon MD Staff: Income Auditor: Mayte Chery RN Scrub Person: Cayetano Ace [...] Condition: stable Max Kowalski MD Normal [facility] POCT GLUCOSE METER UNSOLICIT ED RESULTSon 10-01-2022 Glucose [Mass/Vol] 91 mg/dL Normal 70-105 [facility] Comment on above: Order Comment: Waive d Testing in the ED is performed under the ED CLIA certificate #[id number]. Result Comment: epaw low Performed By: #### L [id number] ####[facility] ([facility])[address] [place] [address] [id number] 09-24-2022 [id number] NPO AFTER MIDNIGHT. MUST HAVE A ACCOUNT SERVICES ANALYST TO TAKE YOU HOME AND SOMEONE TO STAY FOR 24 HOURS AFTER SURGERY. NO JEWELRY OR VALUABLES. HOLD THE MEDS WE SPOKE ABOUT: VITAMINS STARTING 09-27. TAKE THE MEDS WE SPOKE ABOUT WITH A SIP OF WATER DOS: PREVACID, ADIPEX. BRING INSURANCE CARD AND PHOTO ID AND MED LIST. Normal [facility] CITRATE URINE 24HRon 023 Citric Acid, U, 24hr 363 mg/24 hr Normal 320-1240 [facility] Comment on above: Result Comment: This test was developed and its performance characteristics determined by [facility]. It has not been cleared or approved by the Food and Drug Administration. Performed By: #### C ITRATU #### [facility] [address] [place] [address] Dr. Prabhu Lopez Citric Acid, Urine 338 mg/L Normal Undefined [facility] Comment on above: Performed By: #### C ITRATU #### [facility] [address] [address] [address] Prabhu Lopez OXALATE 24HR URINEon 023 Oxalates, Urine 15 mg/L Normal Undefined [facility] Comment on above: Performed By: #### O X24HR #### [facility] [address] [place] [address] Dr. Prabhu Lopez Oxalates, Urine 24hr 16 mg/24 hr Normal 4-31 [facility] Comment on above: Performed By: #### O X24HR #### [facility] [address] [address] [address] Prabhu Lopez MAGNESIUM 24HR URINEon 08-15 Magnesium 24hr Urine 94.6 mg/24 hr Normal 12.0-293.0 [facility] Comment on above: Performed By: #### U JESI, BMP #### [facility] [address] [place] [address] Dr. Prabhu Lopez Magnesium UR 8.8 mg/dL Normal Not Estab. [facility] Comment on above: Performed By: #### U JESI, BMP #### [facility] [address] [place] [address] Dr. Prabhu Lopez PHOSPHORUS 24HR URINEon 08-04 Phosphorus, Urine 48.2 mg/dL Normal Not Estab. The [facility] Comment on above: Performed By: #### P HOS 24 #### [facility] [address] [place] [address] Dr. Prabhu Lopez Phosphorus, Urine 24hr 518 mg/24 hr Normal 261-1078 [facility] Comment on above: Performed By: #### P HOS 24 #### [facility] [address] [place] [address] Dr. Prabhu Lopez URIC ACID 24 HR URINEon 08-04 Uric Acid, Urine 29.6 mg/dL Normal Not Estab. The [facility] Comment on above: Performed By: #### U JESI, BMP #### [facility] [address] [place] [address] Dr. Prabhu Lopez Uric Acid, Urine 24hr 318.2 mg/24 hr Normal 173.7-902.1 [facility] Comment on above: Performed By: #### U JESI, BMP #### [facility] [address] [place] [address] Dr. Prabhu Lopez CALCIUM 24 HR URINEon 2022 CALC, 24 HR UR 76.3 mg/24 hr Critically low 100.0-300.0 [facility] Comment on above: Performed By: #### C [id number] #### [facility] [address] [place] [address] Dr. Prabhu Lopez UR CALCIUM 7.1 mg/dL Normal 5.1-21.0 [facility] Comment on above: Performed By: #### C ALC24U #### [facility] [address] [place] [address] Dr. Prabhu Lopez UR TOT VOL 1075 ml/[address] [facility] Comment on above: Performed By: #### C ALC24U #### [facility] [address] [place] [address] Dr. Prabhu Lopez Performed By: #### N A24U, [id number] #### [facility] [address] [place] [address] Dr. Prabhu Lopez CBC AUTO DIFFon 08-14-2022 BASO # 0.1 103/ul Normal 0.0-0.1 [facility] Comment on above: Performed By: #### U JESI, BMP #### [facility] [address] [place] [address] Dr. Prabhu Lopez Basophils/100 WBC (Bld) 1.3 % Normal 0.2-2.0 [facility] Comment on above: Performed By: #### U JESI, BMP #### [facility] [address] [place] [address] Dr. Prabhu Lopez EO # 0.3 103/ul Normal 0.0-0.7 [facility] Comment on above: Performed By: #### U JESI, BMP #### [facility] [address] [place] [address] Dr. Prabhu Lopez Eosinophils/100 WBC (Bld) 5.2 % Normal 0.9-7.0 [facility] Comment on above: Performed By: #### U JESI, BMP #### [facility] [address] [place] [address] Dr. Prabhu Lopez Erythrocyte distribution width (RBC) [Ratio] 12.9 % Normal 11.0-15.0 [facility] Comment on above: Performed By: #### U JESI, BMP #### [facility] [address] [place] [address] Dr. Prabhu Lopez Hematocrit (Bld) [Volume fraction] 42.7 % Normal 36.0-48.0 [facility] Comment on above: Performed By: #### U JESI, BMP #### [facility] [address] [address] [address] Prabhu Lopez Hemoglobin (Bld) [Mass/Vol] 13.4 g/dL Normal 12.0-16.0 [facility] Comment on above: Performed By: #### U JESI, BMP #### [facility] [address] [address] [address] Prabhu Lopez IG # 0.02 10e3/ul Normal 0.00-0.03 [facility] Comment on above: Performed By: #### U JESI, BMP #### [facility] [address] [place] [address] Dr. Prabhu Lopez IG % 0.4 % Normal 0.0-0.5 [facility] Comment on above: Performed By: #### U JESI, BMP #### [facility] [address] [place] [address] Dr. Prabhu Lopez LYMPH # 2.0 103/ul Normal 1.2-3.8 [facility] Comment on above: Performed By: #### U JESI, BMP #### [facility] [address] [place] [address] Dr. Prabhu Lopez Lymphocytes/100 WBC (Bld) 41.5 % Normal 20.5-60.0 [facility] Comment on above: Performed By: #### U JESI, BMP #### [facility] [address] [place] [address] Dr. Prabhu Lopez MANUAL DIFF REQ NO Normal [facility] Comment on above: Performed By: #### U JESI, BMP #### [facility] [address] [place] [address] Dr. Prabhu Lopez MCH (RBC) [Entitic mass] 28.7 pg Normal 26.7-34.0 [facility] Comment on above: Performed By: #### U JESI, BMP #### [facility] [address] [place] [address] Dr. Prabhu Lopez MCHC (RBC) [Mass/Vol] 31.4 g/dL Normal 29.9-35.2 [facility] Comment on above: Performed By: #### U JESI, BMP #### [facility] [address] [address] [address] Prabhu Lopez MCV (RBC) [Entitic vol] 91.4 fL Normal 81.0-99.0 [facility] Comment on above: Performed By: #### U JESI, BMP #### [facility] [address] [place] [address] Dr. Prabhu Lopez MONO # 0.4 103/ul Normal 0.3-0.8 [facility] Comment on above: Performed By: #### U JESI, BMP #### [facility] [address] [place] [address] Dr. Prabhu Lopez Monocytes/100 WBC (Bld) 8.3 % Normal 1.7-12.0 [facility] Comment on above: Performed By: #### U JESI, BMP #### [facility] [address] [place] [address] Dr. Prabhu Lopez NEUT # 2.1 103/ul Normal 1.4-6.5 [facility] Comment on above: Performed By: #### U JESI, BMP #### [facility] [address] [place] [address] Dr. Prabhu Lopez Neutrophils/100 WBC (Bld) 43.3 % Normal 43.0-75.0 [facility] Comment on above: Performed By: #### U JESI, BMP #### [facility] [address] [place] [address] Dr. Prabhu Lopez Platelet mean volume (Bld) [Entitic vol] 11.7 fL Normal 9.5-13.5 [facility] Comment on above: Performed By: #### U JESI, BMP #### [facility] [address] [place] [address] Dr. Prabhu Lopez PLT 237 103/ul Normal 150-450 [facility] Comment on above: Performed By: #### U JESI, BMP #### [facility] [address] [place] [address] Dr. Prabhu Lopez RBC 4.67 106/ul Normal 4.20-5.40 [facility] Comment on above: Performed By: #### U JESI, BMP #### [facility] [address] [place] [address] Dr. Prabhu Lopez WBC 4.8 103/ul Normal 4.0-11.0 [facility] Comment on above: Performed By: #### U JESI, BMP #### [facility] [address] [place] [address] Dr. Prabhu Lopez CREA 24 HR URINEon 3 CREA, 24 HR UR 875.48 mg/24 hr Normal 800.00-1,8 00. 00 [facility] Comment on above: Performed By: #### N A24U, [id number] #### [facility] [address] [place] [address] Dr. Prabhu Lopez URINE CREAT 81.44 mg/dL Normal 20.00-300.00 [facility] Comment on above: Performed By: #### N A24U, [id number] #### [facility] [address] [place] [address] Dr. Prabhu Lopez FREE THYROXINE INDEX T7on FTI 2.34 Normal 1.30-4.50 [facility] Comment on above: Performed By: #### U JESI, BMP #### [facility] [address] [place] [address] Dr. Prabhu Lopez T3U 33.0 % Normal 30.0-39.0 [facility] Comment on above: Performed By: #### U JESI, BMP #### [facility] [address] [place] [address] Dr. Prabhu Lopez T4 [Mass/Vol] 7.10 ug/dL Normal 4.80-13.[address] [facility] Comment on above: Performed By: #### U EJSI, BMP #### [facility] [address] [place] [address] Dr. Prabhu Lopez GLYCOHEMOGLOBIN A1Con 2022 ADA RECOMMENDATION SEE BELOW Normal [facility] Comment on above: Result Comment: ADA RECOMMENDED LIMIT 4.0 - 6.0 ADA THERAPEUTIC TARGET < 7.0 ACTION SUGGESTED > 7.0 Performed By: #### U JESI, BMP #### [facility] [address] [address] [address] Prabhu Lopez Glucose [Mass/Vol] 123 mg/dL Normal [facility] Comment on above: Performed By: #### U JESI, BMP #### [facility] [address] [address] [address] Prabhu Lopez HbA1c (Bld) [Mass fraction] 5.9 % Normal 4.5-6.2 [facility] Comment on above: Performed By: #### U JESI, BMP #### [facility] [address] [address] [address] Prabhu Lopez LIPID PROFILEon 08-14-2022 CHOL-HDL RATIO NORM SEE BELOW Normal [facility] Comment on above: Result Comment: 3.3 - 4.4 LOW RISK 4.4 - 7.1 AVERAGE RISK 7.1 - 11.0 MODERATE RISK >11.0 HIGH RISK Performed By: #### U JESI, BMP #### [facility] [address] [place] [address] Dr. Prabhu Lopez Cholesterol [Mass/Vol] 255 mg/dL Critically high <=200 [facility] Comment on above: Performed By: #### U JESI, BMP #### [facility] [address] [address] [address] Prabhu Lopez Cholesterol in HDL [Mass/Vol] 80 mg/dL Critically high 40-60 [facility] Comment on above: Performed By: #### U JESI, BMP #### [facility] [address] [address] [address] Prabhu Lopez Cholesterol in LDL [Mass/Vol] 156.6 mg/dL Normal [facility] Comment on above: Performed By: #### U JESI, BMP #### [facility] [address] [address] [address] Prabhu Lopez Cholesterol.total/C holesterol in HDL [Mass ratio] 3.2 {ratio} Normal [facility] Comment on above: Performed By: #### U JESI, BMP #### [facility] [address] [address] [address] Prabhu Lopez HDL NORMAL > or = 60 mg/dl - LO W CARDIOVASCULAR RISK <40 mg/dl - HIGH CARDIOVASCULAR RISK Normal [facility] Comment on above: Performed By: #### U JESI, BMP #### [facility] [address] [address] [address] Prabhu Lopez LDL CALC NORMAL SEE BELOW Normal [facility] Comment on above: Result Comment: <100 mg/dl OPTIMAL 100 - 129 mg/dl NEAR OR ABOVE OPTIMAL 130 - 159 mg/dl BORDERLINE HIGH 160 - 189 mg/dl HIGH >190 mg/dl VERY HIGH Performed By: #### U JESI, BMP #### [facility] [address] [address] [address] Prabhu Lopez Triglyceride [Mass/Vol] 92 mg/dL Normal <=150 [facility] Comment on above: Performed By: #### U JESI, BMP #### [facility] [address] [address] [address] Prabhu Lopez VLDL CALC 18.4 mg/dL Normal [facility] Comment on above: Performed By: #### U JESI, BMP #### [facility] [address] [address] [address] Prabhu Lopez PROF 14(COMP METB)on 023 Albumin [Mass/Vol] 3.9 g/dL Normal 3.4-5.0 [facility] Comment on above: Performed By: #### U JESI, BMP #### [facility] [address] [address] [address] Prabhu Lopez Albumin/Globulin [Mass ratio] 0.8 {ratio} Normal [facility] Comment on above: Performed By: #### U JESI, BMP #### [facility] [address] [address] [address] Prabhu Lopez ALP [Catalytic activity/Vol] 74 U/L Normal 46-116 [facility] Comment on above: Performed By: #### U JESI, BMP #### [facility] [address] [address] [address] Prabhu Lopez ALT [Catalytic activity/Vol] 29 U/L Normal 14-59 [facility] Comment on above: Performed By: #### U JESI, BMP #### [facility] [address] [address] [address] Prabhu Lopez Anion gap [Moles/Vol] 10.9 mmol/L Normal [facility] Comment on above: Performed By: #### U JESI, BMP #### [facility] [address] [address] [address] Prabhu Lopez AST [Catalytic activity/Vol] 22 U/L Normal 15-37 [facility] Comment on above: Performed By: #### U JESI, BMP #### [facility] [address] [address] [address] Prabhu Lopez Bilirubin [Mass/Vol] 0.7 mg/dL Normal 0.2-1.0 [facility] Comment on above: Performed By: #### U JESI, BMP #### [facility] [address] [address] [address] Prabhu Lopez Calcium [Mass/Vol] 8.9 mg/dL Normal 8.5-10.1 [facility] Comment on above: Performed By: #### U JESI, BMP #### [facility] [address] [address] [address] Prabhu Lopez Chloride [Moles/Vol] 106 mmol/L Normal 98-107 [facility] Comment on above: Performed By: #### U JESI, BMP #### [facility] [address] [address] [address] Prabhu Lopez CO2 [Moles/Vol] 30.1 mmol/L Normal 21.0-32.0 [facility] Comment on above: Performed By: #### U JESI, BMP #### [facility] [address] [address] [address] Prabhu Lopez Creatinine [Mass/Vol] 0.94 mg/dL Normal 0.55-1.02 [facility] Comment on above: Performed By: #### U JESI, BMP #### [facility] [address] [address] [address] Prabhu Lopez EGFR-AF GABONESE >60 Normal >=60 [facility] Comment on above: Performed By: #### U JESI, BMP #### [facility] [address] [address] [address] Prabhu Lopez EGFR-NON AF GABONESE >60 Normal >=60 [facility] Comment on above: Performed By: #### U JESI, BMP #### [facility] [address] [address] [address] Prabhu Lopez Globulin (S) [Mass/Vol] 4.8 g/dL Normal [facility] Comment on above: Performed By: #### U JESI, BMP #### [facility] [address] [address] [address] Prabhu Lopez Glucose [Mass/Vol] 96 mg/dL Normal 74-106 [facility] Comment on above: Performed By: #### U JESI, BMP #### [facility] [address] [address] [address] Prabhu Lopez Potassium [Moles/Vol] 4.0 mmol/L Normal 3.5-5.1 [facility] Comment on above: Performed By: #### U JESI, BMP #### [facility] [address] [address] [address] Prabhu Lopez Protein [Mass/Vol] 8.7 g/dL Critically high 6.4-8.2 [facility] Comment on above: Performed By: #### U JESI, BMP #### [facility] [address] [place] [address] Dr. Prabhu Lopez Sodium [Moles/Vol] 143 mmol/L Normal 136-145 [facility] Comment on above: Performed By: #### U JESI, BMP #### [facility] [address] [address] [address] Prabhu Lopez Urea nitrogen [Mass/Vol] 13.0 mg/dL Normal 7.0-18.0 [facility] Comment on above: Performed By: #### U JESI, BMP #### [facility] [address] [address] [address] Prabhu Lopez Urea nitrogen/Creatinine [Mass ratio] 13.8 mg/mg Normal [facility] Comment on above: Performed By: #### U JESI, BMP #### [facility] [address] [place] [address] Dr. Prabhu Lopez PTH INTACTon 08-14-2022 PTH, Intact 17 pg/mL Normal 15-65 [facility] Comment on above: Performed By: #### U JESI, BMP #### [facility] [address] [place] [address] Dr. Prabhu Lopez SODIUM 24 HR URINEon 023 NA, 24 HR UR 111 mmol/24 hr Normal 40-220 [facility] Comment on above: Performed By: #### N A24U, [id number] #### [facility] [address] [place] [address] Dr. Prabhu Lopez Sodium (U) [Moles/Vol] 103 mmol/L Critically high 30-90 [facility] Comment on above: Performed By: #### N A24U, [id number] #### [facility] [address] [place] [address] Dr. Prabhu Lopez TSHon 08-14-2022 TSH 2.531 uIU/mL Normal 0.358-3.[address] [facility] Comment on above: Performed By: #### U JESI, BMP #### [facility] [address] [place] [address] Dr. Prabhu Lopez PROF CHEM 8 (BAS METB)on Anion gap [Moles/Vol] 8.9 mmol/L Normal [facility] Comment on above: Performed By: #### U JESI, BMP #### [facility] [address] [place] [address] Dr. Prabhu Lopez Calcium [Mass/Vol] 9.3 mg/dL Normal 8.5-10.1 [facility] Comment on above: Performed By: #### U JESI, BMP #### [facility] [address] [place] [address] Dr. Prabhu Lopez Chloride [Moles/Vol] 108 mmol/L Critically high 98-107 [facility] Comment on above: Performed By: #### U JESI, BMP #### [facility] [address] [address] [address] Prabhu Lopez CO2 [Moles/Vol] 28.5 mmol/L Normal 21.0-32.0 [facility] Comment on above: Performed By: #### U JESI, BMP #### [facility] [address] [address] [address] Prabhu Lopez Creatinine [Mass/Vol] 1.08 mg/dL Critically high 0.55-1.02 [facility] Comment on above: Performed By: #### U JESI, BMP #### [facility] [address] [address] [address] Prabhu Lopez EGFR-AF GABONESE >60 Normal >=60 [facility] Comment on above: Performed By: #### U JESI, BMP #### [facility] [address] [address] [address] Prabhu Lopez EGFR-NON AF GABONESE 52 mL/min/1.73m2 Critically low >=60 [facility] Comment on above: Performed By: #### U JESI, BMP #### [facility] [address] [address] [address] Prabhu Lopez Glucose [Mass/Vol] 94 mg/dL Normal 74-106 [facility] Comment on above: Performed By: #### U JESI, BMP #### [facility] [address] [address] [address] Prabhu Lopez Potassium [Moles/Vol] 3.4 mmol/L Critically low 3.5-5.1 [facility] Comment on above: Performed By: #### U JESI, BMP #### [facility] [address] [address] [address] Prabhu Lopez Sodium [Moles/Vol] 142 mmol/L Normal 136-145 [facility] Comment on above: Performed By: #### U JESI, BMP #### [facility] [address] [address] [address] Prabhu Lopez Urea nitrogen [Mass/Vol] 17.0 mg/dL Normal 7.0-18.0 [facility] Comment on above: Performed By: #### U JESI, BMP #### [facility] [address] [place], [place] [address] Dr. Prabhu Lopez Urea nitrogen/Creatinine [Mass ratio] 15.7 mg/mg Normal [facility] Comment on above: Performed By: #### U JESI, BMP #### [facility] [address] [place], [place] [address] Dr. Prabhu Lopez URIC ACID SERUMon 08-12-2022 Urate [Mass/Vol] 4.8 mg/dL Normal 2.6-6.0 [facility] Comment on above: Performed By: #### U JESI, BMP #### [facility] [address] [place], [place] [address] Dr. Prabhu Lopez 36on 08-04-2022 36 Surgery was approved . I called pt to schedule. Pt did not answer LMOV to return call. Normal [facility] Prep for Procedureon 023 Prep for Procedure [id number] Tiffany Lopez 1965 F Date Provider Department Center 08/04/2022 PATRICIA MAK MP [facility] No family history on file Normal [facility] XR KUB 1 VIEWon 05-23-2022 XR [...] WIL KAYE Date: 2022-05-23 09:40 Normal [facility] Covid-19 PCR (CVDTB)on 11-04 SARS-CoV-2 (COVID-19) RNA TANGELA+probe Ql (Unsp spec) Not detected Normal NOT DETECTED [facility] Comment on above: Result Comment: When [...] for this test is supported by the Sales Architect of Health and Human Service's declaration that [...] used). Performed By: #### C VDTB #### [facility] [address] [place] [address] Dr. Prabhu Lopez Covid-19 PCR ([facility])on SARS-CoV-2 (COVID-19) RNA TANGELA+probe Ql (Unsp spec) Not detected Normal NOT DETECTED [facility] Comment on above: Result Comment: This test is not yet approved or cleared by the [place] FDA. When there are no FDA-approved or cleared tests available, and other criteria are met, FDA can make tests available under an emergency access mechanism called an Emergency Use Authorization (EUA). The EUA for this test is supported by the Sales Architect of Health and Human Service's (HHS's) declaration [...] SARS-CoV-2. Performed By: #### C VDTBH #### [facility] [address] [place] [address] Dr. Prabhu Lopez B-Type Natriuretic Peptideon 02-12-2021 Natriuretic peptide B (Bld) [Mass/Vol] 36.0 pg/mL Normal 5-100 [facility] Comment on above: Result Comment: PERF ORMED BY: [place] [address] PATHOLOGIST FLOAT OPERATOR NICANOR BALTAZAR M.D. Performed By: #### C BC, PTT, CKMB, BMP, CK, BNP, PT, HS TROP #### [address] Basic Metabolic Panelon Calcium [Mass/Vol] 8.9 mg/dL Normal 8.2-10.2 [facility] Comment on above: Performed By: #### C BC, PTT, CKMB, BMP, CK, BNP, PT, HS TROP #### [address] Chloride [Moles/Vol] 104 mmol/L Normal 95-114 [facility] Comment on above: Performed By: #### C BC, PTT, CKMB, BMP, CK, BNP, PT, HS TROP #### [address] CO2 [Moles/Vol] 24.0 mmol/L Normal 22.0-30.0 [facility] Comment on above: Performed By: #### C BC, PTT, CKMB, BMP, CK, BNP, PT, HS TROP #### [address] Creatinine [Mass/Vol] 1.06 mg/dL High 0.44-1.03 [facility] Comment on above: Performed By: #### C BC, PTT, CKMB, BMP, CK, BNP, PT, HS TROP #### [address] Creatinine Clr Calc Pharmacy 64.12 Normal [facility] Comment on above: Result Comment: PERF ORMED BY: [place] [address] PATHOLOGIST FLOAT OPERATOR NICANOR BALTAZAR M.D. Performed By: #### C BC, PTT, CKMB, BMP, CK, BNP, PT, HS TROP #### [facility] [address] Estimated GFR ( Najma > 60 Normal [facility] Comment on above: Result Comment: GFR estimated reference range: According to KDOQI guidelines, <60 ml/min/1.73m2 is sufficient to diagnose a patient with chronic kidney disease. Performed By: #### C BC, PTT, CKMB, BMP, CK, BNP, PT, HS TROP #### [facility] [address] Estimated GFR (Non- Am 54 Normal [facility] Comment on above: Performed By: #### C BC, PTT, CKMB, BMP, CK, BNP, PT, HS TROP #### [facility] [address] Glucose [Mass/Vol] 106 mg/dL High 70-100 [facility] Comment on above: Result Comment: [place] Glucose Reference Range is dependent on time and content of last meal. Glucose of more than 200 mg/dL in a nonstressed, ambulatory subject supports the diagnosis of Diabetes Mellitus. ADA recommended reference range Performed By: #### C BC, PTT, CKMB, BMP, CK, BNP, PT, HS TROP #### [address] Potassium [Moles/Vol] 3.3 mmol/L Low 3.5-5.1 [facility] Comment on above: Performed By: #### C BC, PTT, CKMB, BMP, CK, BNP, PT, HS TROP #### [facility] [address] Sodium [Moles/Vol] 138 mmol/L Normal 136-146 [facility] Comment on above: Performed By: #### C BC, PTT, CKMB, BMP, CK, BNP, PT, HS TROP #### [facility] [address] Urea nitrogen [Mass/Vol] 11 mg/dL Normal 9-23 [facility] Comment on above: Performed By: #### C BC, PTT, CKMB, BMP, CK, BNP, PT, HS TROP #### [address] Complete Blood Count Auto Di ffon 02-12-2021 Basophils (Bld) [#/Vol] 0.1 10*3/uL Normal 0.0-0.2 [facility] Comment on above: Result Comment: PERF ORMED BY: [place] [address] PATHOLOGIST FLOAT OPERATOR NICANOR BALTAZAR M.D. Performed By: #### C BC, PTT, CKMB, BMP, CK, BNP, PT, HS TROP #### [address] Basophils/100 WBC (Bld) 1.2 % Normal . [facility] Comment on above: Performed By: #### C BC, PTT, CKMB, BMP, CK, BNP, PT, HS TROP #### [address] Eosinophils (Bld) [#/Vol] 0.2 10*3/uL Normal 0.0-0.45 [facility] Comment on above: Performed By: #### C BC, PTT, CKMB, BMP, CK, BNP, PT, HS TROP #### [address] Eosinophils/100 WBC (Bld) 3.2 % Normal . [facility] Comment on above: Performed By: #### C BC, PTT, CKMB, BMP, CK, BNP, PT, HS TROP #### [address] Erythrocyte distribution width (RBC) [Ratio] 13.5 % Normal 11.9-15.3 [facility] Comment on above: Performed By: #### C BC, PTT, CKMB, BMP, CK, BNP, PT, HS TROP #### [address] Hematocrit (Bld) [Volume fraction] 36.8 % Normal 34.0-46.4 [facility] Comment on above: Performed By: #### C BC, PTT, CKMB, BMP, CK, BNP, PT, HS TROP #### [address] Hemoglobin (Bld) [Mass/Vol] 12.2 g/dL Normal 11.8-15.4 [facility] Comment on above: Performed By: #### C BC, PTT, CKMB, BMP, CK, BNP, PT, HS TROP #### [address] Lymphocytes (Bld) [#/Vol] 2.3 10*3/uL Normal 1.00-4.8 [facility] Comment on above: Performed By: #### C BC, PTT, CKMB, BMP, CK, BNP, PT, HS TROP #### [address] Lymphocytes/100 WBC (Bld) 37.1 % Normal . [facility] Comment on above: Performed By: #### C BC, PTT, CKMB, BMP, CK, BNP, PT, HS TROP #### [address] MCH (RBC) [Entitic mass] 29.5 pg Normal 24.7-34.3 [facility] Comment on above: Performed By: #### C BC, PTT, CKMB, BMP, CK, BNP, PT, HS TROP #### [address] MCV (RBC) [Entitic vol] 89.0 fL Normal 80-100 [facility] Comment on above: Performed By: #### C BC, PTT, CKMB, BMP, CK, BNP, PT, HS TROP #### [address] Mean Corpuscular HGB Conc 33.2 g/dL Normal 32.0-35.0 [facility] Comment on above: Performed By: #### C BC, PTT, CKMB, BMP, CK, BNP, PT, HS TROP #### [address] [address] [place] Monocytes (Bld) [#/Vol] 0.5 10*3/uL Normal 0.0-0.8 [facility] Comment on above: Performed By: #### C BC, PTT, CKMB, BMP, CK, BNP, PT, HS TROP #### [address] Monocytes/100 WBC (Bld) 8.7 % Normal . [facility] Comment on above: Performed By: #### C BC, PTT, CKMB, BMP, CK, BNP, PT, HS TROP #### [address] Neutrophils (Bld) [#/Vol] 3.1 10*3/uL Normal 1.8-7.7 [facility] Comment on above: Performed By: #### C BC, PTT, CKMB, BMP, CK, BNP, PT, HS TROP #### [address] Neutrophils/100 WBC (Bld) 49.8 % Normal . [facility] Comment on above: Performed By: #### C BC, PTT, CKMB, BMP, CK, BNP, PT, HS TROP #### [address] Nucleated RBC/100 WBC (Bld) [Ratio] 0.0 % Normal 0-0.5 [facility] Comment on above: Performed By: #### C BC, PTT, CKMB, BMP, CK, BNP, PT, HS TROP #### [address] Platelet mean volume (Bld) [Entitic vol] 9.7 fL Normal 6.3-10.7 [facility] Comment on above: Performed By: #### C BC, PTT, CKMB, BMP, CK, BNP, PT, HS TROP #### [address] Platelets (Bld) [#/Vol] 219 10*3/uL Normal 150-450 [facility] Comment on above: Performed By: #### C BC, PTT, CKMB, BMP, CK, BNP, PT, HS TROP #### [facility] [address] RBC (Bld) [#/Vol] 4.13 10*6/uL Normal 3.60-5.00 [facility] Comment on above: Performed By: #### C BC, PTT, CKMB, BMP, CK, BNP, PT, HS TROP #### [facility] [address] WBC (Bld) [#/Vol] 6.3 10*3/uL Normal 4.5-11.0 [facility] Comment on above: Performed By: #### C BC, PTT, CKMB, BMP, CK, BNP, PT, HS TROP #### [address] Creatine Kinaseon 02-12-2021 CK [Catalytic activity/Vol] 178 U/L Normal 22-269 [facility] Comment on above: Performed By: #### C BC, PTT, CKMB, BMP, CK, BNP, PT, HS TROP #### [address] Creatinine Kinase MBon 02-12 CK.MB [Mass/Vol] 2.5 ng/mL Normal 0.6-6.3 [facility] Comment on above: Performed By: #### C BC, PTT, CKMB, BMP, CK, BNP, PT, HS TROP #### [address] CKMB Relative Index 1.4 % Normal 0.00-2.50 [facility] Comment on above: Performed By: #### C BC, PTT, CKMB, BMP, CK, BNP, PT, HS TROP #### [address] Partial Thromboplastin Timeo n 02-12-2021 aPTT Coag (Bld) [Time] 29.3 s Normal 25.1-36.5 [facility] Comment on above: Result Comment: PERF ORMED BY: [place] [address] PATHOLOGIST FLOAT OPERATOR NICANOR BALTAZAR M.D. Performed By: #### C BC, PTT, CKMB, BMP, CK, BNP, PT, HS TROP #### [address] Prothrombin Time INRon 02-12 INR Coag (PPP) [Relative time] 1.0 {INR} Normal [facility] Comment on above: Result Comment: INR [...] BMP, CK, BNP, PT, HS TROP #### [address] PT Coag (PPP) [Time] 11.5 s Normal 9.0-12.9 [facility] Comment on above: Performed By: #### C BC, PTT, CKMB, BMP, CK, BNP, PT, HS TROP #### [address] Troponin I High Sensitivityo n 02-12-2021 Troponin I High Sensitivity 5 pg/mL Normal 0-15 [facility] Comment on above: Result Comment: PERF ORMED BY: [place] [address] PATHOLOGIST FLOAT OPERATOR NICANOR BALTAZAR M.D. Performed By: #### C BC, PTT, CKMB, BMP, CK, BNP, PT, HS TROP #### [address] XR chest 2V*on 02-12-2021 XR chest 2V* [facility] [place] [address] [place] [address] XRay Report Signed Patient: Alyssa Lopez MR#: [id number] : 1965 Acct:[id number] Age/Sex: 55 / F ADM Date: 02/11/21 Loc: ER Room: Type: [facility] ER Attending Dr: Ordering Provider: [...] Reid Graves M.D.02/12/2021 9:18 AM Dictation Location: [place] [address] Transcribed By: [facility] 02/12/21917 Dictated By: Reid Graves DO 02/12/21914 Signed By: 02/12/21917 Normal [facility] ECG 12 lead ECGon 02-11-2021 ECG 12 lead ECG [facility] [place] [address] [place] [address] Electrocardiograph Report Signed Patient: Alyssa Lopez MR#: [id number] : 1965 Acct:[id number] Age/Sex: 55 / F ADM Date: 02/11/21 Loc: ER Room: Type: [facility] ER Attending Dr: Ordering Provider: [...] ECGs available Confirmed by Stefan Carolina DO ([id number]) on 02/11/2021 11:41:46 PM Referred By: Electronically Signed By:Stefan Carolina DO Transcribed By: MUS Signed By Stefan Carolina DO 02/11 2341 [facility] Vital Signs Date Time Vital Sign Value Performing Clinician Homa [email or web address] 05-26-2022 08:49-0500 Blood Pressure Location Hoda SALMON [facility] 05-26-2022 08:49-0500 Diastolic blood pressure 74 mm[Hg] Hodaallison SALMON [facility] 05-26-2022 08:49-0500 Heart rate 70 /min Hodaallison SALMON [facility] 05-26-2022 08:49-0500 Respiratory rate 16 /min Hoda SALMON [facility] 05-26-2022 08:49-0500 Systolic blood pressure 128 mm[Hg] Hoda SALMON [facility] Encounters Encounter Date Encounter Type Care Provider Facility Start: 01-14-2024 End: 01-14-2024 ambulatory LUCIO MIXON Facility:[facility] Start: 01-14-2024 End: 01-14-2024 Patient encounter procedure Lucio Mixon MD Work Phone: Orthopaedic [facility] Comment on above: Primary osteoarthrit is of first carpometacarpal joint of left hand (Primary Dx) Start: 12-29-2023 End: 12-29-2023 ambulatory [place]ga [place]: 12-29-2023 End: 12-29-2023 Patient encounter procedure Allen Noriega [facility] Start: 12-24-2023 End: 12-24-2023 ambulatory Allen Noriega [place] [place]: 12-24-2023 End: 12-24-2023 Lab Drop off Allen Noriega [facility] Start: 09-29-2023 Telephone encounter Ines Coker MD Work Phone: Neurology Comment on above: EMG- FAXED RESULTS Start: 09-29-2023 End: 09-29-2023 ambulatory INES COKER Neurology EMG [facility] Start: 09-29-2023 End: 09-29-2023 Patient encounter procedure Emg 2 Neur [facility] (Max Weight 400) Neurology EMG [facility] Start: 08-28-2023 Telephone encounter Ines Coker MD Work Phone: Neurology Comment on above: EMG Instructions Start: 08-25-2023 Orders Only Laine pimentel CNP Work Phone: Neurology Comment on above: Sprain of left wrist , sequela (Primary Dx); Carpal tunnel syndrome of left wrist Start: 08-20-2023 Telephone encounter Lucio prasad MD Work Phone: Orthopaedic Surgery [facility] Start: 08-13-2023 End: 08-13-2023 Patient encounter procedure Lucio Mixon MD Work Phone: Orthopaedic Surgery [facility] Comment on above: Numbness and tinglin g in left hand (Primary Dx) Start: 08-13-2023 End: 08-13-2023 ambulatory LUCIO MIXON Facility:[facility] Start: 08-13-2023 End: 08-13-2023 Subsequent hospital visit by physician Xr [facility] 1 Xray [facility] Comment on above: Pain [R52] Start: 07-31-2023 Orders Only Lucio Mixon MD Work Phone: Referring Physician Comment on above: Pain (Primary Dx) Start: 07-06-2023 End: 07-06-2023 ambulatory Hoda SALMON Facility:[facility] Start: 07-06-2023 End: 07-06-2023 Patient encounter procedure Hoda SALMON [facility] Start: 06-30-2023 ambulatory [facility] Start: 04-22-2023 ambulatory [facility] Start: 02-10-2023 ambulatory [facility] Start: 11-26-2022 ambulatory [facility] Start: 10-15-2022 End: 10-15-2022 ambulatory [facility] Start: 10-01-2022 End: 10-01-2022 ambulatory [facility] Start: 08-15-2022 Encounter for genera l adult medical examination without abnormal findings DR SHAI LAU . [facility] Start: 08-14-2022 End: 08-15-[address] SHAI LAU . Facility:[facility] Start: 08-14-2022 End: 08-15-2022 Encounter for general adult medical examination without abnormal findings DR SHAI LAU . Facility:[facility] Start: 08-12-2022 End: 08-13-[address] HODA SALMON . Facility:[facility] Start: 05-26-2022 End: 05-26-2022 Patient encounter procedure Hoda SALMON [facility] Start: 05-22-2022 End: 05-23-[address] HODA SALMON . Facility:[facility] Start: 11-15-2021 End: 11-15-[address] SHAI LAU . Facility:[facility] Start: 11-12-2021 End: 11-12-[address] SHAI LAU . Facility:[facility] Start: 07-02-2021 End: 07-02-2021 Lab Drop off EMERITA PRINCE [facility] Start: 07-02-2021 End: 07-02-2021 Patient encounter procedure Toni Carrera Jr. [facility] Procedures Date Procedure Procedure [...] 12-06-2023 Covid-19 Vaccine () Covid-19 Vaccine () [facility] Start: 12-06-2023 Covid-19 Vaccine () Covid-19 Vaccine () [facility] Start: 12-06-2023 Influenza vaccination C [facility] Start: 09-29-2023 End: 09-29-2023 ambulatory 09/29/2023 9:25 AM EDT Procedure Neurology EMG [facility] [address] [place] [address] EMG STANDARD Neurology EMG [facility] Comment on above: EMG STANDARD Start: 08-13-2023 End: 08-13-2023 Patient encounter procedure Xray [facility] Comment on above: sprain of left wrist , kwesinoah is coming in for seccond opinion, had carple tunnel surgery on this wrist october 02, 2022 Start: 04-06-2023 Behavioral Health Screening Behavioral Health Screening [facility] Start: 12-05-2022 Covid-19 Vaccine () Covid-19 Vaccine () [facility] Start: 12-05-2022 Covid-19 Vaccine ( season) Covid-19 Vaccine ( season) [facility] Start: 06-09-2015 Shingrix Vaccine (1 of 2) Shingrix Vaccine (1 of 2) [facility] Start: 2010 Diabetes Screening Diabetes Screenin g [facility] Start: 2010 Lipid panel Lipid Screening [facility] Start: 2010 Screening for malign ant neoplasm of colon [facility] Start: 2005 Screening for malign ant neoplasm of breast Mammogram Screening [facility] Start: 06-09-1995 Screening for malign ant neoplasm of cervix HPV Testing [facility] Start: 1986 Screening for malign ant neoplasm of cervix [facility] Start: 1984 Hepatitis B Vaccine (1 of 3 - 19+ 3-dose series) Hepatitis B Vaccine (1 of 3 - 19+ 3-dose series) [facility] Start: 1984 Urine microalbumin profile DTaP,Tdap,Td Vaccine (1 - Tdap) [facility] Start: 06-09-1983 Anxiety Screening Anxiety Screening [facility] Start: 06-09-1983 Depression Screening Depression Scre ening [facility] Start: 06-09-1983 Hepatitis C screening Hepatitis C Sc reening [facility] Start: 06-09-1983 HIV screening HIV Screening [facility] End: 08-24-2024 EMG(NEURO/NI) EMG(NEURO/NI) EMG Routine Sprain of left wrist, sequela Carpal tunnel syndrome of left wrist 1 Occurrences starting 08/25/2023 until 08/24/2024 [facility] Work Phone: Comment on above: 1 Occurrences starti ng 08/25/2023 until 08/24/2024 End: 08-29-2024 XR Wrist - left 4 Views XR WRIST INJURY 4V PA/LAT/OBL/SCAPH LEFT Radiology Routine Pain 1 Occurrences starting 07/31/2023 until 08/29/2024 [facility] Comment on above: 1 Occurrences starti ng 07/31/2023 until 08/29/2024 End: 08-29-2024 XR Wrist - left PA and Lateral and Oblique XR WRIST GENERAL 3V PA/LAT/OBL LEFT Radiology Routine Pain 1 Occurrences starting 07/31/2023 until 08/29/2024 [facility] Work Phone: Comment on above: 1 Occurrences starti ng 07/31/2023 until 08/29/2024 Immunizations Immunization Date Immunization Notes Care Provider Mihai bradshaw 02-26-2022 influenza virus vaccine, unspecified formulation Lucio Mixon MD Work Phone: [facility] 08-08-2020 SARS-CoV-2 (COVID-19 ) Ad26 vaccine, recombinant Toni Carrera Jr. [facility] 07-18-2020 SARS-CoV-2 (COVID-19 ) Ad26 vaccine, recombinant Toni Carrera Jr. [facility] Payers Date Payer Category Payer Private Health Insurance [facility] CHO[facility] PLUS [id number] 2023-Present [phone] [address] [address] [place] [address] PPO [id number] 2019 Unknown [id number] 2019 Unknown [id number] 2019 Unknown [id number] 1965 Unknown [id number] .[id number] 1965 Unknown [id number] .2.593 1965 Unknown [id number] [id number] .2.593 1965 Unknown [id number] .2.593 1965 Unknown [id number] [id number] .2.593 1965 Unknown [id number] [id number] .2.593 1965 Unknown [id number] [id number] .2.727 1965 Unknown [id number] [id number] .2.727 1965 Unknown [id number] .[id number] 1959 Unknown [id number] Social History Date Type Detail Facility Start: 07-06-2014 End: 05-13-2021 Tobacco smoking status Never smoked tobacco (finding) [facility] Start: 08-13-2023 End: 01-14-2024 Sex Assigned At Female [facility] Start: 07-28-2014 End: 01-14-2024 Alcohol intake Current drinker of alcohol (finding) [facility] Start: 1965 Sex Assigned At Not on file [facility] Start: 08-13-2023 End: 01-14-2024 History of Social function [facility] National Score (1-10 0), lower number is lower risk 46 [facility] Functional Status Date Assessment Result Facility 05-26-2022 Functional Status N/A [facility] Clinical Notes 05-26-2022 to 01-14-2024 Lucio Mixon MD - 01/14/2024 12:53 PM EDTTelephone Encounter - Neema Campos - 09/29/2023 2:14 PM EDTTelephone Encounter - Neema Campos - 09/29/2023 2:14 PM EDTRadiology Note Date & Type Note Facility 01-14-2024 Note HNO ID: [id number] Author: LUCIO MIXON MD Service: ? Author Type: Physician Type: Progress Notes Filed: 02/09/2024 08:08 Note Text: Lucio Mixon MD Department of Orthopaedics Orthopaedic Surgery [facility] [address] [facility] [address] Dept: [phone] Dept January 14, 2024 CHIEF COMPLAINT: Pain [...] before without relief. 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 ASSESSMENT: M18.12 [...] studies of the median nerve and normal kpumod-fu-fbsmy comparative studies. - No electrodiagnostic evidence of [...] ONE DAILY MULTIVITAMIN ORAL Take by mouth. [place]-3 Fatty Acids-Vitamin E (FISH OIL) 1,000 mg [...] Psych (no depression, anxiety) Lucio Mixon MD [facility] 01-14-2024 History of Present illness Narrative Lucio Mixon MD Department of Orthopaedics Orthopaedic Surgery [facility] [address] [facility] [address] Dept: [phone] Dept January 14, 2024 CHIEF COMPLAINT: Pain [...] before without relief. 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 ASSESSMENT: M18.12 [...] studies of the median nerve and normal gtfklb-kl-ugfpu comparative studies. - No electrodiagnostic evidence of [...] ONE DAILY MULTIVITAMIN ORAL Take by mouth. [place]-3 Fatty Acids-Vitamin E (FISH OIL) 1,000 mg [...] Lucio Mixon MD documented in this encounter [facility] 09-29-2023 Telephone encounter Note Results from EMG performed on 09/29/2023 were faxed to Laine Granger at fax number on 09/29/2023. Fax confirmation received. [facility] 09-29-2023 Miscellaneous Notes Results from EMG performed on 09/29/2023 were faxed to Laine Granger at fax number on 09/29/2023. Fax confirmation received. documented in this encounter [facility] 09-29-2023 History of Present illness Narrative UNIVERSAL [...] MD Neuromuscular Medicine (NM) Staff Neuromuscular Center, [facility] documented in this encounter [facility] 09-29-2023 Note HNO ID: [id number] Author: RAMSEY NDIAYE MD Service: ? Author [...] MD Neuromuscular Medicine (NM) Staff Neuromuscular Center, [facility] [place] [facility] 08-28-2023 Telephone encounter Note Spoke with Alyssa [...] testing. Patient expressed understanding with these instructions. [facility] 08-28-2023 Miscellaneous Notes Spoke with Alyssa Lopez [...] with these instructions. documented in this encounter [facility] 08-24-[address] Mixon's note still not completed, I did call Nayeli at [employer]. We did discuss that the patient needs to find their old nerve conduction study and get a new nerve conduction study (Study can be request by POR) and then should follow-up with Dr. Mixon to discuss both. [facility] Work Phone: 08-24-[address] Mixon's [...] for the 08/13/23 visit. Please fax to [phone] Callback number: [phone] Fax Number (if necessary): [phone] Additional info if needed (Prior Auth #, Claim #, etc ): N/A Karly Leija documented in this encounter [facility] 08-20-2023 Telephone encounter Note Name of Caller: Nayeli at [employer] Relationship to patient: Last visit in this department: 08/13/2023 Reason for Call: Other : Nayeli calling from [facility] to get office notes and any test results if applicable for the 08/13/23 visit. Please fax to [phone] Callback number: [phone] Fax Number (if necessary): [phone] Additional info if needed (Prior Auth #, Claim #, etc ): N/A Karly Leija [facility] 08-13-2023 Note HNO ID: [id number] Author: LUCIO MIXON MD Service: ? Author Type: Physician Type: Progress Notes Filed: 09/08/2023 16:53 Note Text: Lucio Mixon MD Department of Orthopaedics Orthopaedic Surgery [facility] [address] [facility] [address] Dept: [phone] Dept August 13, 2023 CHIEF COMPLAINT: New [...] her origional EMG test. SHe'll have her [facility] get an c9 for a [...] ONE DAILY MULTIVITAMIN ORAL Take by mouth. [place]-3 Fatty Acids-Vitamin E (FISH OIL) 1,000 mg [...] physician via US mail. Laine Granger CNP [facility] [address] Lucio Mixon MD [facility] 08-13-2023 History of Present illness Narrative Lucio Mixon MD Department of Orthopaedics Orthopaedic Surgery [facility] [address] [facility] [address] Dept: [phone] Dept August 13, 2023 CHIEF COMPLAINT: New [...] her origional EMG test. SHe'll have her [facility] get an c9 for a [...] ONE DAILY MULTIVITAMIN ORAL Take by mouth. [place]-3 Fatty Acids-Vitamin E (FISH OIL) 1,000 mg [...] physician via US mail. Laine Granger CNP [facility] [address] Lucio Mixon MD documented in this encounter [facility] 08-13-2023 History of Present illness Narrative Radiology [...] PATIENT PRESENTS WITH AN IMPLANTABLE OR ATTACHED STAFF SUBMARINE WARFARE OFFICER: No RADIOLOGY DEPARTMENT: General X-ray: Exam(s) Completed: Upper Extremity X-Ray(s): Wrist, left PERIPHERAL IV DATA: Not applicable SIGNED BY: RT Brian(Gabriel) August 13, 2023 9:24 AM documented in this encounter [facility] 08-13-2023 Note HNO ID: [id number] Author: CONSTANCE VERMA RT(Gabriel) Service: ? Author [...] PATIENT PRESENTS WITH AN IMPLANTABLE OR ATTACHED STAFF SUBMARINE WARFARE OFFICER: No RADIOLOGY DEPARTMENT: General X-ray: Exam(s) Completed: Upper Extremity X-Ray(s): Wrist, left PERIPHERAL IV DATA: Not applicable SIGNED BY: RT Brian(R) August 13, 2023 9:24 AM [facility] 04-22-2023 Note Patient ID: Alyssa Lopez is [...] to verify the correct patient, procedure, equipment, computer support analyst and site/side marked as required. [facility] 11-07-2023 Note Orthopedic Surgery Subjective 10/01/2022 [...] disease) Kidney stone Migraines Objective Left Hand: Vgdgknwbcy-sxtj-mmvnso scar from carpal tunnel incision. 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 [facility] 11-26-2022 Note Attestation signed by Max [...] disease) Kidney stone Migraines Objective Left Hand: Wylwzsahnt-fegu-ltpmrs scar from carpal tunnel incision. 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 No notable events documented. [facility] 10-01-2022 Note Patient: Guillermina curry Procedure Information Date/Time: 10/01/22829 Procedure: CARPAL TUNNEL RELEASE (Left: Hand) Location: [address] OR Surgeons: Max Kowalski MD Relevant [...] discussed with attending. Additional Equipment Requests [facility] 05-26-2022 Hospital Discharge instructions Follow Up Care 05/26/2022 09:33:22 With:JEFFREY AVELAR, Hdoa Rios, URL Address: [facility] [address] [place] [address] [phone] When: Unknown [facility] [place] 05-26-2022 Hospital Discharge instructions Patient [...] include: ?Spinach. ?Rhubarb. ?Beets. ?Potato chips and telugu fries. ?Nuts. If you regularly take a diuretic medicine, make sure to eat at least 1 2 fruits or vegetables high in potassium each day. These include: ?Avocado. ?Banana. ?[place], prune, carrot, or tomato juice. ?Baked potato. [...] Casseroles. Pizza. Lasagna. Frozen meals. Potato chips. Belarusian fries. Summary You can reduce your risk [...] 07/18/2011 Document Revised: 07/13/2019 Document Reviewed: 03/03/2017 [employer] Patient Education 2020 [employer]. Follow Up Care 05/13/2021 09:33:00 With:Hoda SALMON MD, URL Address: [facility] [address] [place] [address]- When: Unknown [facility] Evaluation + Plan note Future Appointments Appointment Date:05/26/2022 08:45:00 AM Scheduled Provider:Hoda SALMON MD Location:[facility] Appointment Type:URO Office Visit [facility] Evaluation + Plan note Future Appointments Appointment Date:05/26/2022 08:45:00 AM Scheduled Provider:Hoda SALMON MD Location:[facility] Appointment Type:URO Office Visit Diagnostic Tests PendingUrine Culture 07/02/21 [facility] Evaluation + Plan note Future Appointments Appointment Date:05/29/2023 08:00:00 AM Scheduled Provider:Hoda SALMON MD Location:[facility] Appointment Type:URO Office Visit [facility] Evaluation + Plan note Future Appointments Appointment Date:12/30/2023 12:00:00 PM Scheduled Provider: [facility] Appointment Type:US Abdominal/Pelvis () Diagnostic Tests PendingReference Lab Notification 12/24/23 Future Scheduled TestsUS Pelvis Non-OB Complete 12/30/23US Transvaginal Non-OB 12/30/23 [facility] Evaluation note Diagnosis Pain- Primary Generalized [...] Pain Generalized pain [facility] Primary osteoarthritis of first carpometacarpal joint of left hand- Primary Primary localized osteoarthrosis, hand [facility] Narr[facility] No data available for this section [facility] Hospital Discharge instructions No data available for this section [facility] progress note No data available for this section [facility] reason for referral (narrative)* Diagnostic Procedure Only (Routine) - Pending Review Specialty Diagnoses / Procedures Referred By Contac t Referred To Contact XR IMAGING Diagnoses Pain Procedures XR WRIST INJURY 4V PA/LAT/OBL/SCAPH LEFT RADEX WRIST COMPLETE MINIMUM 3 VIEWS Lucio Mixon MD [address] [place] [address] Xr Imaging [id number] Referral ID Status Reason Start Date Expiration Date Visits Requested Visits Authorized [id number] Pending Review Auto-Generat ed Referral 07/31/2023 08/29/2024 1 1 * Diagnostic Procedure Only (Routine) - Authorized Specialty Diagnoses / Procedures Referred By Contac t Referred To Contact XR IMAGING Diagnoses Pain Procedures XR WRIST GENERAL 3V PA/LAT/OBL LEFT RADEX WRIST COMPLETE MINIMUM 3 VIEWS Lucio Mixon MD [address] [place] [address] Xr Imaging [id number] Referral ID Status Reason Start Date Expiration Date Visits Requested Visits Authorized [id number] Authorized Auto-Generat ed Referral 07/31/2023 08/29/2024 1 1 [facility] for referral (narrative)* Outpatient Procedure (Routine) - Pending Review Specialty Diagnoses / Procedures Referred By Contac t Referred To Contact [facility] Diagnoses Sprain of left wrist, sequela Carpal tunnel syndrome of left wrist Procedures EMG(NEURO/NI) NERVE CONDUCTION STUDIES 9-10 STUDIES Ines Coker MD [address] [place] [address] [address] [place] [address] [place], [place] [id number] Referral ID Status Reason Start Date Expiration Date Visits Requested Visits Authorized [id number] Pending Review Auto-Generat ed Referral 08/25/2023 08/24/2024 1 1 [facility] Summary Purpose Family History No Family History [...] Lucio Mixon MD [address] [place] [address] [place] [address] Referral ID Status Reason Start Date Expiration Date V isits Requested Visits Authorized [id number] Closed Auto-Generat ed Referral Patient Cleared - Admin/Chairm an/Director advise to proceed or did not respond 08/13/2023 08/13/2023 1 1 Additional Source Comments INFORMATION SOURCE (unrecogn ized section and content) DATE CREATED AUTHOR 05/29/2021 [facility] DATE CREATED AUTHOR AUTHOR'S ORGANIZ ATION 08/21/2022 [facility] DATE CREATED AUTHOR AUTHOR'S ORGANIZ ATION 07/01/2023 [facility] DATE CREATED AUTHOR AUTHOR'S ORGANIZ ATION 12/31/2023 [facility] DATE CREATED AUTHOR AUTHOR'S ORGANIZ ATION 01/02/2024 [facility]rete [facility] DATE CREATED AUTHOR AUTHOR'S ORGANIZ ATION 01/05/2024 Navarrete Montcalm [facility] DATE CREATED AUTHOR AUTHOR'S ORGANIZ ATION 02/10/2024 [facility] Patient Care team informatio n (unrecognized section and content) [facility] Relationship Specialty Start Date End Date Laine Granger CNP [address] [place] [address] Family Medicine 07/24/23 [facility] Relationship Specialty Start Date End Date Laine Granger LYLY [address] [place] [facility] [place] [address] Referring Family Medicine 07/24/23 [facility] Relationship Specialty Start Date End Date Laine Granger LYLY [address] [place] [facility] [place] [address] Referring Family Medicine 07/24/23 [facility] Relationship Specialty Start Date End Date Laine Granger LYLY [address] [place] [address] Referring Family Medicine 07/24/23 [facility] Relationship Specialty Start Date End Date Lawrence GrangeristinaLYLY [address] [place] [facility] [place] [address] Referring Family Medicine 07/24/23 [facility] Relationship Specialty Start Date End Date Laine GrangerLYLY [address] [place] [facility] [place] [address] Referring Family Medicine 07/24/23 [facility] Relationship Specialty Start Date End Date Amaris GrangerLYLY kay [address] [place] [address] Referring Family Medicine 07/24/23 Source Comments (unrecognize d section and content) In the event this informatio n is protected by the Federal Confidentiality of Alcohol and Drug Abuse Patient Records regulations: The Federal rules restrict any use of the information to criminally investigate or prosecute any alcohol or drug abuse patient.[facility] the event this information is protected by the Federal Confidentiality of Alcohol and Drug Abuse Patient Records regulations: The Federal rules restrict any use of the information to criminally investigate or prosecute any alcohol or drug abuse patient.[facility] the event this information is protected by the Federal Confidentiality of Alcohol and Drug Abuse Patient Records regulations: The Federal rules restrict any use of the information to criminally investigate or prosecute any alcohol or drug abuse patient.[facility] the event this information is protected by the Federal Confidentiality of Alcohol and Drug Abuse Patient Records regulations: The Federal rules restrict any use of the information to criminally investigate or prosecute any alcohol or drug abuse patient.[facility] the event this information is protected by the Federal Confidentiality of Alcohol and Drug Abuse Patient Records regulations: The Federal rules restrict any use of the information to criminally investigate or prosecute any alcohol or drug abuse patient.[facility] the event this information is protected by the Federal Confidentiality of Alcohol and Drug Abuse Patient Records regulations: The Federal rules restrict any use of the information to criminally investigate or prosecute any alcohol or drug abuse patient.[facility] the event this information is protected by the Federal Confidentiality of Alcohol and Drug Abuse Patient Records regulations: The Federal rules restrict any use of the information to criminally investigate or prosecute any alcohol or drug abuse patient.[facility] the event this information is protected by the Federal Confidentiality of Alcohol and Drug Abuse Patient Records regulations: The Federal rules restrict any use of the information to criminally investigate or prosecute any alcohol or drug abuse patient.[facility] Center[facility] the event this information is protected by the Federal Confidentiality of Alcohol and Drug Abuse Patient Records regulations: The Federal rules restrict any use of the information to criminally investigate or prosecute any alcohol or drug abuse patient.[facility] Reason for Visit (unrecogniz ed section and content) Reason Comments EMG Instructions Reason Comments New Pain Specialty Diagnoses / Procedures Referred By Contac t Referred To Contact Orthopedics / ORTHOPAEDIC SURGERY Diagnoses sprain of left wrist, alin is coming in for seccond opinion, had carple tunnel surgery on this wrist october 02, 2022 Procedures [facility] Laine Granger, ANIMAL TECHNICIAN [address] [place] [address] Lucio Mixon MD [address] [place] [address] Referral ID Status Reason Start Date Expiration Date V isits Requested Visits Authorized [id number] Closed Patient Cleared - Admin/Chairm an/Director advise to proceed or did not respond 08/13/2023 08/13/2023 1 1 Specialty Diagnoses / Procedures Referred By Contac t Referred To Contact [facility] Diagnoses Sprain of left wrist, sequela Carpal tunnel syndrome of left wrist Procedures [facility](NEURO/NI) NERVE CONDUCTION STUDIES 9-10 STUDIES Ines Coker MD [address] [place] [address] Neu[facility] [address] [id number] Referral ID Status Reason Start Date Expiration Date V isits Requested Visits Authorized [id number] Closed Auto-Generate d Referral 09/29/2023 10/29/2023 1 1 Reason Comments EMG- FAXED RESULTS Reason Comments Radio Gen RMP Specialty Diagnoses / Procedures Referred By Contac t Referred To Contact XR IMAGING Diagnoses Pain Procedures XR WRIST GENERAL 3V PA/LAT/OBL LEFT RADEX WRIST COMPLETE MINIMUM 3 VIEWS Lucio Mixon MD [address] [place] [address] Xr Imaging [id number] Referral ID Status Reason Start Date Expiration Date V isits Requested Visits Authorized [id number] Closed Auto-Generat ed Referral Patient Cleared - [...] Lucio Mixon MD [address] [place] [address] [place] [id number] Referral ID Status Reason Start Date Expiration Date V isits Requested Visits Authorized [id number] Closed Auto-Generate d Referral 01/07/2024 01/14/2024 1 [...] BE BASED ON THE PRIMARY CLINICAL RECORDS. [employer] provides no warranty or guarantee of the accuracy or completeness of information in this document.
[2024-03-02 09:02] VITALS: BMI 38.7
--- NOTE | 2024-03-02 09:02 | VEINCLINIC_ITS ---
Vital Signs 03/02/24 09:02 Height 5 ft 3 in Weight 99 kg BMI 38.7 Varicose Veins Patient in today for follow up ultrasound of left lower extremity following treatment of Varithena/microfoam completed on 02/26/24. Evna Cristobal MD personally performed the services described in this documentation, as scribed by Nel James RDMS in my presence and it is both accurate and complete. I, Nel James RDMS, am scribing for, and in the presence of, Dr. Rito Carlin and in the presence of the patient. thigh: bilateral (left > right leg), knee: bilateral, calf: bilateral, ankle: bilateral and funez: bilateral aching, cramping and tender 37 years Worsened in recent months: Yes standing and walking elevating extremities, compression stockings and exercise Reports muscle spasms of leg, fatigue, heaviness, restless legs, edema and leg edema History of lower extremity trauma: No Superficial thrombophlebitis: Yes (DVT to left leg) Family history of varicose veins: yes Has patient had previous lower extremity venous surgery: No Patient has previously received the following treatment(s) for lower extremity varicose veins: Reports none Does patient have a history of : yes Does patient intend to have future pregnancies: no Has patient had lower extremity venous scan with relux testing: No Support hose used: Yes Problems walking or doing physical activity: Yes How does it affect you: often has to rest and elevate legs/feet while and effects work Do you walk much: Yes Do you stand much: Yes Review of Systems ROS0 Narrative Evan Cristobal MD personally performed the services described in this documentation, as scribed by Nel James RDMS in my presence and it is both accurate and complete. Nel Cristobal RDMS, am scribing for, and in the presence of, Dr. Rito Carlin and in the presence of the patient. 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 ?I80.01 - Phlebitis and thrombophlebitis of superficial vessels of right lower extremity (ICD-10) Phlebitis and thrombophlebitis of superficial vessels of left lower extremity ?I80.02 - Phlebitis and thrombophlebitis of superficial vessels of left lower extremity (ICD-10) Varicose veins of bilateral lower extremities with pain ?I83.813 - Varicose veins of bilateral lower extremities with pain (ICD-10) Plantar fascial fibromatosis ?M72.2 - Plantar fascial fibromatosis (ICD-10) Contracture, left ankle ?M24.572 - Contracture, left ankle (ICD-10) Vertigo ?R42 - Dizziness and giddiness (ICD-10) Chronic cystitis ?N30.20 - Other chronic cystitis without hematuria (ICD-10) Chronic kidney disease ?N18.9 - Chronic kidney disease, unspecified (ICD-10) Urinary tract infection ?N39.0 - Urinary tract infection, site not specified (ICD-10) COVID-19 (04/16/23) ?U07.1 - COVID-19 (ICD-10) Migraine ?G43.909 - Migraine, unspecified, not intractable, without status migrainosus (ICD-10) S/P extracorporeal shock wave therapy ?Z98.890 - Other specified postprocedural states (ICD-10) Kidney stones ?N20.0 - Calculus of kidney (ICD-10) Seasonal allergies ?J30.2 - Other seasonal allergic rhinitis (ICD-10) GERD (gastroesophageal reflux disease) ?K21.9 - Gastro-esophageal reflux disease without esophagitis (ICD-10) Surgical History (Updated 02/10/24 @ 08:25 by Stefan Hood) Status post laser ablation of incompetent vein ?Z98.890 - Other specified postprocedural states (ICD-10) Status post laser ablation of incompetent vein ?Z98.890 - Other specified postprocedural states (ICD-10) Status post laser ablation of incompetent vein ?Z98.890 - Other specified postprocedural states (ICD-10) History of endometrial ablation ?Z98.890 - Other specified postprocedural states (ICD-10) History of spinal surgery ?Z98.890 - Other specified postprocedural states (ICD-10) History of tonsillectomy ?Z90.89 - Acquired absence of other organs (ICD-10) H/O hand surgery ?Z98.890 - Other specified postprocedural states (ICD-10) History of foot surgery ?Z98.890 - Other specified postprocedural states (ICD-10) History of carpal tunnel release ?Z98.890 - Other specified postprocedural states (ICD-10) Family History (Updated 11/12/23 @ 10:49 by Stefan Hood) Other Family history of diabetes mellitus Family history of hypertension Family history of myocardial infarction Pain due to varicose veins of both lower extremities Social History Within the past year, how often did you have a drink containing alcohol: 2-4 times a month Smoking status: Never smoker Non-prescribed substance use: denies use 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 Highest level of school completed/degree received: high school graduate Meds Home Medications and Allergies Home Medications ?Medication ?Instructions ?Recorded ?Confirmed ?Type cetirizine 10 mg tablet (Zyrtec) 10 mg PO DAILY PRN allergy symptoms 05/19/23 11/12/23 History lansoprazole 30 mg capsule,delayed 30 mg PO DAILY 05/19/23 11/12/23 History release multivitamin (Daily Multi-Vitamin 1 tab PO DAILY 05/19/23 11/12/23 History tablet) ondansetron 4 mg disintegrating 4 mg PO Q8H PRN nausea and 06/04/23 11/12/23 Rx tablet vomiting 5 days #15 tabs tizanidine 2 mg tablet 2 mg PO TID PRN muscle spasticity 06/04/23 11/12/23 Rx 7 days #21 tabs Allergies Allergy/AdvReac Type Severity Reaction Status Date / Time levofloxacin (From Levaquin) Allergy Muscle Pain Verified 06/29/23 14:18 phenobarbital Allergy Unknown Verified 06/29/23 14:18 Sulfa (Sulfonamide Allergy Rash Verified 06/29/23 14:18 Antibiotics) Exam Narrative Exam Narrative: IEvan MD personally performed the services described in this documentation, as scribed by Nel James RDMS in my presence and it is both accurate and complete. INel RDMS, am scribing for, and in the presence of, Dr. Rito Carlin and in the presence of the patient. Constitutional Documenting provider has reviewed patient's vital signs: yes Common normals: oriented x3 Nutritional appearance: overweight Cardio Peripheral pulses: dorsalis pedis pulses present Extremity Common normals: normal capillary refill General: edema Right lower extremity: lower leg Right lower leg: inspection and palpation Left lower extremity: lower leg Left lower leg: inspection and palpation Neuro Common normals: oriented x3 Results Imaging Venous US: Radiologist's impression: Chemically induced thrombus in multiple varicose veins in left leg. Multiple varicose veins remain. Evan Cristobal MD personally performed the services described in this documentation, as scribed by Nel James RDMS in my presence and it is both accurate and complete. Nel Cristobal RDMS, am scribing for, and in the presence of, Dr. Rito Carlin and in the presence of the patient. Assessment and Plan Assessment and Plan (1) Phlebitis and thrombophlebitis of superficial vessels of left lower extremity: Plan Plan is for patient to return for Varithena/microfoam of right leg on 03/07/24. Evan Cristobal MD personally performed the services described in this documentation, as scribed by Nel James RDMS in my presence and it is both accurate and complete. Nel Cristobal RDMS, am scribing for, and in the presence of, Dr. Rito Carlin and in the presence of the patient.
--- NOTE | 2024-03-02 09:07 | W.VEIN ---
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
== END 2024-03-02 09:08 | disposition home or self-care (01) ==
PROVIDERS: PCP Radiology Diagnostic Radiology; Visit Provider Radiology Diagnostic Radiology
DX: I80.02 Phlebitis and thrombophlebitis of superficial vessels of left lower extremity (principal)
CPT/HCPCS: 93971; G0463

== ENCOUNTER 2024-03-24 14:04 | Outpatient (OUT) | payer OTHER, SELFPAY ==
--- NOTE | 2024-03-22 13:16 | VEINCLINIC_ITS ---
Vital Signs 03/24/24 14:04 BP 126/72 BP Location Left Brachial BP Position Sitting BP Cuff Size Adult BP Source Manual Cuff Respiration 18 Pulse 70 Pulse Source Monitor Pulse Oximetry (%) 98 Oxygen Delivery Method Room Air Comment The patient's blood pressure is elevated. Varicose Veins Patient in today for Varithena/microfoam chemical ablation right leg. Carlos Cristobal MD personally performed the services described in this documentation, as scribed by Nadia Vasquez RN in my presence and it is both accurate and complete. INadia RN, am scribing for, and in the presence of, Dr. Carlos Conde and in the presence of the patient. thigh: bilateral (left > right leg), knee: bilateral, calf: bilateral, ankle: bilateral and funez: bilateral aching, cramping and tender 37 years Worsened in recent months: Yes standing and walking elevating extremities, compression stockings and exercise Reports muscle spasms of leg, fatigue, heaviness, restless legs, edema and leg edema History of lower extremity trauma: No Superficial thrombophlebitis: Yes (DVT to left leg) Family history of varicose veins: yes Has patient had previous lower extremity venous surgery: No Patient has previously received the following treatment(s) for lower extremity varicose veins: Reports none Does patient have a history of : yes Does patient intend to have future pregnancies: no Has patient had lower extremity venous scan with relux testing: No Support hose used: Yes Problems walking or doing physical activity: Yes How does it affect you: often has to rest and elevate legs/feet while and effects work Do you walk much: Yes Do you stand much: Yes Review of Systems ROS Narrative Carlos Cristobal MD personally performed the services described in this documentation, as scribed by Nadia Vasquez RN in my presence and it is both accurate and complete. Nadia Cristobal RN, am scribing for, and in the presence of, Dr. Carlos Conde and in the presence of the patient. 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 ?I80.01 - Phlebitis and thrombophlebitis of superficial vessels of right lower extremity (ICD-10) Phlebitis and thrombophlebitis of superficial vessels of left lower extremity ?I80.02 - Phlebitis and thrombophlebitis of superficial vessels of left lower extremity (ICD-10) Varicose veins of bilateral lower extremities with pain ?I83.813 - Varicose veins of bilateral lower extremities with pain (ICD-10) Plantar fascial fibromatosis ?M72.2 - Plantar fascial fibromatosis (ICD-10) Contracture, left ankle ?M24.572 - Contracture, left ankle (ICD-10) Vertigo ?R42 - Dizziness and giddiness (ICD-10) Chronic cystitis ?N30.20 - Other chronic cystitis without hematuria (ICD-10) Chronic kidney disease ?N18.9 - Chronic kidney disease, unspecified (ICD-10) Urinary tract infection ?N39.0 - Urinary tract infection, site not specified (ICD-10) COVID-19 (04/16/23) ?U07.1 - COVID-19 (ICD-10) Migraine ?G43.909 - Migraine, unspecified, not intractable, without status migrainosus (ICD-10) S/P extracorporeal shock wave therapy ?Z98.890 - Other specified postprocedural states (ICD-10) Kidney stones ?N20.0 - Calculus of kidney (ICD-10) Seasonal allergies ?J30.2 - Other seasonal allergic rhinitis (ICD-10) GERD (gastroesophageal reflux disease) ?K21.9 - Gastro-esophageal reflux disease without esophagitis (ICD-10) Surgical History (Updated 02/10/24 @ 08:25 by Stefan Hood) Status post laser ablation of incompetent vein ?Z98.890 - Other specified postprocedural states (ICD-10) Status post laser ablation of incompetent vein ?Z98.890 - Other specified postprocedural states (ICD-10) Status post laser ablation of incompetent vein ?Z98.890 - Other specified postprocedural states (ICD-10) History of endometrial ablation ?Z98.890 - Other specified postprocedural states (ICD-10) History of spinal surgery ?Z98.890 - Other specified postprocedural states (ICD-10) History of tonsillectomy ?Z90.89 - Acquired absence of other organs (ICD-10) H/O hand surgery ?Z98.890 - Other specified postprocedural states (ICD-10) History of foot surgery ?Z98.890 - Other specified postprocedural states (ICD-10) History of carpal tunnel release ?Z98.890 - Other specified postprocedural states (ICD-10) Family History (Updated 11/12/23 @ 10:49 by Stefan Hood) Other Family history of diabetes mellitus Family history of hypertension Family history of myocardial infarction Pain due to varicose veins of both lower extremities Social History Within the past year, how often did you have a drink containing alcohol: 2-4 times a month Smoking status: Never smoker Non-prescribed substance use: denies use 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 Highest level of school completed/degree received: high school graduate Meds Home Medications and Allergies Home Medications ?Medication ?Instructions ?Recorded ?Confirmed ?Type cetirizine 10 mg tablet (Zyrtec) 10 mg PO DAILY PRN allergy symptoms 05/19/23 11/12/23 History lansoprazole 30 mg capsule,delayed 30 mg PO DAILY 05/19/23 11/12/23 History release multivitamin (Daily Multi-Vitamin 1 tab PO DAILY 05/19/23 11/12/23 History tablet) ondansetron 4 mg disintegrating 4 mg PO Q8H PRN nausea and 06/04/23 11/12/23 Rx tablet vomiting 5 days #15 tabs tizanidine 2 mg tablet 2 mg PO TID PRN muscle spasticity 06/04/23 11/12/23 Rx 7 days #21 tabs Allergies Allergy/AdvReac Type Severity Reaction Status Date / Time levofloxacin (From Levaquin) Allergy Muscle Pain Verified 06/29/23 14:18 phenobarbital Allergy Unknown Verified 06/29/23 14:18 Sulfa (Sulfonamide Allergy Rash Verified 06/29/23 14:18 Antibiotics) Exam Narrative Exam Narrative: Carlos Cristobal MD personally performed the services described in this documentation, as scribed by Nadia Vasquez RN in my presence and it is both accurate and complete. INadia RN, am scribing for, and in the presence of, Dr. Carlos Conde and in the presence of the patient. Constitutional Documenting provider has reviewed patient's vital signs: yes Common normals: oriented x3 Nutritional appearance: overweight Cardio Peripheral pulses: dorsalis pedis pulses present Extremity Common normals: normal capillary refill General: edema Right lower extremity: lower leg Right lower leg: inspection and palpation Left lower extremity: lower leg Left lower leg: inspection and palpation Neuro Common normals: oriented x3 Assessment and Plan Assessment and Plan (1) Varicose veins of bilateral lower extremities with pain: Plan The patient tolerated the procedure well without complication.? The patient verbalizes understanding and states they will comply.? Patient was given post- procedure instructions. Patient was discharged in good condition.? Scheduled to undergo follow-up evaluation on 03/28/24. Carlos Cristobal MD personally performed the services described in this documentation, as scribed by Nadia Vasquez RN in my presence and it is both accurate and complete. Nadia Cristobal RN, am scribing for, and in the presence of, Dr. Carlos Conde and in the presence of the patient. Procedures Procedure Instructions Procedures leg microfoam chemical ablation/Varithena: Risks and benefits of the procedure were discussed at length and informed written consent was obtained.? Time-out procedure was performed and the correct patient and procedure were confirmed.? Staff present during time-out: Nadia Vasquez RN and Carlos Conde MD.? Patient prepped and procedure performed in usual sterile fashion.? Patient was placed in Trendelenburg prior to Polidocanol/Varithena injections. Sclerosing Agent:?? 4cc 1% Polidocanol/Varithena Site Injected: right leg Number of Injections:? 8cc into 7mm vein right mid medial lower leg 4cc into 5mm vein right distal medial thigh 3cc into 7mm vein right proximal lateral lower leg The patient tolerated the procedure well without complication.? Hemostasis was obtained and thigh-high compression stocking was applied with foam pads.? Instructed patient to wear stocking for at least 96 hours and sleep with it and only remove for showering.? The patient was instructed to? wear stocking for 2 weeks.? Patient verbalizes understanding and states they will comply.? Patient was given post-procedure instructions. Patient was discharged in good condition.? Scheduled to undergo limited venous ultrasound and? exam on 03/28/24. Carlos Cristobal MD personally performed the services described in this documentation, as scribed by Nadia Vasquez RN in my presence and it is both accurate and complete. I, Nadia Vasquez RN, am scribing for, and in the presence of, Dr. Carlos Conde and in the presence of the patient.
--- NOTE | 2024-03-22 13:19 | W.VEIN ---
Discharge Plan Discharge Disposition: Home, Self-Care Outpatient Diagnostics: VC Facility EST LMTD (Routine) Timeframe: 2 Weeks Facility: [facility] - Location: [facility] Ordered By: Carlos Conde VC EXT Venous RT LMTD (Routine) Timeframe: 2 Weeks Facility: [facility] - Location: [facility] Center Ordered By: Carlos Conde Follow Up Appointments: 03/28/24 Plan of Treatment: u/s follow up following varithena right leg 03/24/24 Patient Instructions: Polidocanol (By injection) (Vu [place]) Print Language: Rwandan Discharge Date/Time: 03/24/24 15:03
[2024-03-24 14:04] VITALS: BP 126/72; PULSE 70; O2SAT 98
--- NOTE | 2024-03-24 14:05 | VEIN_ITS ---
[address] [address] Patient Name: KASSANDRA LOPEZ MRN: [id number] date: 1965 Sex: F Assigned Patient Location: Current Patient Location: Accession/Order Number: [id number] Exam Date: 03/24/2024 14:05 Report Date: 03/24/2024 15:08 At the request of: WIL KAYE Procedure: VC INJ Foam Sclerosant WUS PRODUCT DISTRIBUTION SPECIALIST PROCEDURE: VC INJ Foam Sclerosant WUS PRODUCT DISTRIBUTION SPECIALIST COMPARISON: None. HISTORY: I83.813 - Varicose veins of bilateral lower extremities w... Pre-operative Diagnosis: CEAP class C4a venous insufficiency with pain, tenderness, edema and incompetent right saphenous and varicose vein(s), chronic venous insufficiency right leg secondary to venous incompetence Post-operative Diagnosis: CEAP class C4a venous insufficiency with pain, tenderness, edema and incompetent right saphenous and varicose vein(s), chronic venous insufficiency right leg secondary to venous incompetence Procedure Performed: 1. Ultrasound-guided microfoam chemical ablation with Varithenaregistered 2. Intraoperative ultrasound guidance Anesthesia: None Indications for Procedure: 58-year-old female who presents with a long history of lower extremity pain swelling and varicose veins culminating and hemosiderin staining. The patient failed conservative medical therapy including medical compression stockings, exercise and analgesics. Prior procedures include . Multiple incompetent varicosities of the right leg. Duplex scan showed reflux and enlarged diameters up to 7 mm. The patient underwent informed consent including management options where the complications of infection, bleeding, pain, and skin injury were discussed. Particular attention was spent discussing thrombus extension and deep vein thrombosis as well as the possibility of pulmonary embolus and treatment with oral or injectable blood thinners. Procedure: The patient walked to the procedure room. All applicable staff donned appropriate apparel. A procedure timeout was performed to confirm correct patient, correct extremity, correct procedure, and correct room set-up including presence of all applicable supplies, devices, and drugs. A duplex ultrasound, performed by myself confirmed the location and incompetence of branch saphenous varicosities and their course was marked on the skin together with the dilated tributaries. The extent of treatment of the vein and the associated varicosities was determined through ultrasound mapping. The skin was prepped and then punctured with a butterfly needle and advanced under ultrasound guidance. The Varithenaregistered canister was activated and the canister was primed and purged as required in the instructions for use. Varithenaregistered was drawn into a sterile syringe. The following injections were made: 8 cc injected into a 7 mm varicose vein right mid medial lower leg 4 cc injected into 5 mm varicose vein right distal medial thigh 3 cc injected into a 7 mm varicose vein right lateral proximal lower leg Varithenaregistered was slowly administered at 0.5-1.0 cc/second with close observation by ultrasound of its course in the vessels. Total volume utilized was: 15cc. Following administration of Varithenaregistered the leg was elevated and the patient was asked to repeatedly dorsiflex the ankle to limit flow of Varithenaregistered into perforating veins. Once appropriate spasm had been confirmed in the treated veins, the vascular catheter was removed from the leg and light pressure was applied over the puncture site for hemostasis. The common femoral and deep superficial veins were then evaluated for flow and compressibility prior to dressing placement. The lower extremity was kept elevated at 45 degrees above the horizontal and cording material was applied over the saphenous segments and tributaries to allow for eccentric compression over the target vessels including the targeted saphenous vein(s). A multilayer dressing was applied consisting of foam pads, coban and thigh-high 20-30 mm Hg compression elastic support hose were placed on the patient. The leg was lowered only after compression had been applied and the patient was immediately ambulatory. The patient ambulated 10 minutes under supervision and was without apparent concerns at time of release. Post-care instructions include advising patient to keep post-treatment bandages in place and dry for 48 hours, avoid extended periods of inactivity, avoid heavy exercise for one week, wear compression stockings on the treated leg continuously for two weeks, to walk daily for 10 minutes over the next month. The patient was instructed to take an anti-inflammatory medicine as needed and to follow up for color duplex scan of the Saphenous veins, the treated branch saphenous varicosities, the adjacent deep veins, and additional treatment within 7 days. PERSONNEL: Nadia Vasquez RN Electronically authenticated by: CONSTANCE HERNANDEZ Date: 03/24/2024 15:08
== END 2024-03-24 15:03 | disposition home or self-care (01) ==
LOC: VC 14:04
PROVIDERS: PCP Radiology Diagnostic Radiology; Visit Provider Radiology Diagnostic Radiology
DX: I83.813 Varicose veins of bilateral lower extremities with pain (principal)
CPT/HCPCS: 36466

== ENCOUNTER 2024-03-28 13:17 | Outpatient (OUT) | payer OTHER, SELFPAY ==
[2024-03-28 10:18] VITALS: BMI 38.7
--- NOTE | 2024-03-28 10:18 | VEINCLINIC_ITS ---
Vital Signs 03/28/24 10:18 Height 5 ft 3 in Weight 99 kg BMI 38.7 Varicose Veins Patient in today for follow up ultrasound of right lower extremity following treatment of Varithena/microfoam completed on 03/24/24. Carlos Cristobal MD personally performed the services described in this documentation, as scribed by Nel James RDMS in my presence and it is both accurate and complete. Nel Cristobal RDMS, am scribing for, and in the presence of, Dr. Carlos Conde and in the presence of the patient. thigh: bilateral (left > right leg), knee: bilateral, calf: bilateral, ankle: bilateral and funez: bilateral aching, cramping and tender 37 years Worsened in recent months: Yes standing and walking elevating extremities, compression stockings and exercise Reports muscle spasms of leg, fatigue, heaviness, restless legs, edema and leg edema History of lower extremity trauma: No Superficial thrombophlebitis: Yes (DVT to left leg) Family history of varicose veins: yes Has patient had previous lower extremity venous surgery: No Patient has previously received the following treatment(s) for lower extremity varicose veins: Reports none Does patient have a history of : yes Does patient intend to have future pregnancies: no Has patient had lower extremity venous scan with relux testing: No Support hose used: Yes Problems walking or doing physical activity: Yes How does it affect you: often has to rest and elevate legs/feet 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 Nel Cristobal RDMS, am scribing for, and in the presence of, Dr. Carlos Conde and in the presence of the patient. 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 ?I80.01 - Phlebitis and thrombophlebitis of superficial vessels of right lower extremity (ICD-10) Phlebitis and thrombophlebitis of superficial vessels of left lower extremity ?I80.02 - Phlebitis and thrombophlebitis of superficial vessels of left lower extremity (ICD-10) Varicose veins of bilateral lower extremities with pain ?I83.813 - Varicose veins of bilateral lower extremities with pain (ICD-10) Plantar fascial fibromatosis ?M72.2 - Plantar fascial fibromatosis (ICD-10) Contracture, left ankle ?M24.572 - Contracture, left ankle (ICD-10) Vertigo ?R42 - Dizziness and giddiness (ICD-10) Chronic cystitis ?N30.20 - Other chronic cystitis without hematuria (ICD-10) Chronic kidney disease ?N18.9 - Chronic kidney disease, unspecified (ICD-10) Urinary tract infection ?N39.0 - Urinary tract infection, site not specified (ICD-10) COVID-19 (04/16/23) ?U07.1 - COVID-19 (ICD-10) Migraine ?G43.909 - Migraine, unspecified, not intractable, without status migrainosus (ICD-10) S/P extracorporeal shock wave therapy ?Z98.890 - Other specified postprocedural states (ICD-10) Kidney stones ?N20.0 - Calculus of kidney (ICD-10) Seasonal allergies ?J30.2 - Other seasonal allergic rhinitis (ICD-10) GERD (gastroesophageal reflux disease) ?K21.9 - Gastro-esophageal reflux disease without esophagitis (ICD-10) Surgical History (Updated 02/10/24 @ 08:25 by Stefan Hood) Status post laser ablation of incompetent vein ?Z98.890 - Other specified postprocedural states (ICD-10) Status post laser ablation of incompetent vein ?Z98.890 - Other specified postprocedural states (ICD-10) Status post laser ablation of incompetent vein ?Z98.890 - Other specified postprocedural states (ICD-10) History of endometrial ablation ?Z98.890 - Other specified postprocedural states (ICD-10) History of spinal surgery ?Z98.890 - Other specified postprocedural states (ICD-10) History of tonsillectomy ?Z90.89 - Acquired absence of other organs (ICD-10) H/O hand surgery ?Z98.890 - Other specified postprocedural states (ICD-10) History of foot surgery ?Z98.890 - Other specified postprocedural states (ICD-10) History of carpal tunnel release ?Z98.890 - Other specified postprocedural states (ICD-10) Family History (Updated 11/12/23 @ 10:49 by Stefan Hood) Other Family history of diabetes mellitus Family history of hypertension Family history of myocardial infarction Pain due to varicose veins of both lower extremities Social History Within the past year, how often did you have a drink containing alcohol: 2-4 times a month Smoking status: Never smoker Non-prescribed substance use: denies use Previous occupational history: [employer] Highest level of school completed/degree received: high school graduate Meds Home Medications and Allergies Home Medications ?Medication ?Instructions ?Recorded ?Confirmed ?Type cetirizine 10 mg tablet (Zyrtec) 10 mg PO DAILY PRN allergy symptoms 05/19/23 11/12/23 History lansoprazole 30 mg capsule,delayed 30 mg PO DAILY 05/19/23 11/12/23 History release multivitamin (Daily Multi-Vitamin 1 tab PO DAILY 05/19/23 11/12/23 History tablet) ondansetron 4 mg disintegrating 4 mg PO Q8H PRN nausea and 06/04/23 11/12/23 Rx tablet vomiting 5 days #15 tabs tizanidine 2 mg tablet 2 mg PO TID PRN muscle spasticity 06/04/23 11/12/23 Rx 7 days #21 tabs Allergies Allergy/AdvReac Type Severity Reaction Status Date / Time levofloxacin (From Levaquin) Allergy Muscle Pain Verified 06/29/23 14:18 phenobarbital Allergy Unknown Verified 06/29/23 14:18 Sulfa (Sulfonamide Allergy Rash Verified 06/29/23 14:18 Antibiotics) Exam Narrative Exam Narrative: Carlos Cristobal MD personally performed the services described in this documentation, as scribed by Nel James RDMS in my presence and it is both accurate and complete. I, Nel James RDMS, am scribing for, and in the presence of, Dr. Carlos Conde and in the presence of the patient. Constitutional Documenting provider has reviewed patient's vital signs: yes Common normals: oriented x3 Nutritional appearance: overweight Cardio Peripheral pulses: dorsalis pedis pulses present Extremity Common normals: normal capillary refill General: edema Right lower extremity: lower leg Right lower leg: inspection and palpation Left lower extremity: lower leg Left lower leg: inspection and palpation Neuro Common normals: oriented x3 Results Imaging Venous US: Radiologist's impression: Chemically induced thrombus in multiple varicose veins in right leg. Carlos Cristobal MD personally performed the services described in this d ocumentation, as scribed by Nel James RDMS in my presence and it is both accurate and complete. INel RDMS, am scribing for, and in the presence of, Dr. Carlos Conde and in the presence of the patient. Assessment and Plan Assessment and Plan (1) Chronic phlebitis of superficial vein of right lower extremity: Plan Plan is to get prior authorization after the first of the year for Varithena/microfoam of right leg. Carlos Cristobal MD personally performed the services described in this documentation, as scribed by Nel James RDMS in my presence and it is both accurate and complete. I, Nel James RDMS, am scribing for, and in the presence of, Dr. Carlos Conde and in the presence of the patient.
--- NOTE | 2024-03-28 10:20 | P.DS_ITS ---
Discharge Plan Discharge Disposition: Home, Self-Care Outpatient Diagnostics: VC INJ Foam Sclerosant WUS ACOUSTICS TEACHER (Routine) Timeframe: 2 Months Facility: [facility] [place] - Location: [facility] Center Ordered By: Carlos Conde Plan of Treatment: Varithena/microfoam of right leg Print Language: Syrian Discharge Date/Time: 03/28/24 15:55
--- NOTE | 2024-03-28 15:23 | VEIN_ITS ---
Patient Name: KASSANDRA LOPEZ MR#: [id number] : 1965 Exam Date: 03/28/2024 Ordering Doctor: DR CARLOS CONDE M.D. RADIOLOGY REPORT PROCEDURE: VC EXT VENOUS RT LMTD COMPARISON: VC EXT VENOUS RT LMTD, 01/12/2024. INDICATIONS: I80.01 - Phlebitis and thrombophlebitis of superficial veins right leg TECHNIQUE: Lower extremity bone scale and Duplex Doppler evaluation of the deep venous system from the inguinal ligament through the calf veins. FINDINGS: REGION: Right lower extremity. THROMBI: Negative for DVT. Chemically induced thrombus in multiple varicose veins in right leg. COMPRESSIBILITY: Non-compressible segments corresponding to thrombus FLOW: Areas of no flow corresponding to thrombus OTHER: Multiple large varicose veins remain. Largest is posterior thigh and measures 6.0 mm. CONCLUSION: 1. Post ablation occlusion of treated varicose veins with no deep vein thrombus Dictated by: Carlos Conde MD on 03/28/2024 at 15:43 Approved by: Carlos Conde MD on 03/28/2024 at 15:46
--- NOTE | 2024-03-28 15:23 | VEIN_ITS ---
Patient Name: KASSANDRA LOPEZ MR#: [id number] : 1965 Exam Date: 03/28/2024 Ordering Doctor: DR CARLOS CONDE M.D. RADIOLOGY REPORT PROCEDURE: [facility] EST [facility] - OFFICE VISIT FOLLOW UP COMPARISON: [facility] EST LMT[facility], 03/02/2024. [facility] EST LMTD, 02/17/2024. PROGRESS NOTES: The patient reports no significant problems following micro foam chemical ablation of right leg incompetent varicose veins the patient did wear her compression stockings. The patient did require analgesics. Physical exam demonstrates multiple thrombosed right leg varicose veins with residual patent varicose veins. No erythema or warmth to suggest cellulitis or thrombophlebitis. No active ulceration Review of the ultrasound performed the same day demonstrates occlusive thrombus extending throughout the treated right leg varicose veins with no deep vein thrombus. The patient expressed a desire to proceed with treatment of bilateral incompetent varicose veins with micro ablation. VEIN/[facility] EST LMTD IMPRESSION: 1. Successful ablation of treated incompetent right leg varicose veins 2. Persistent bilateral incompetent varicose veins. PLAN: Micro foam chemical ablation left leg incompetent varicose veins Nurse notes, history and physical were reviewed and confirmed, see attached forms. The nurse was present throughout the physical exam and consultation Dictated by: Carlos Conde MD on 03/28/2024 at 16:04 Approved by: Carlos Conde MD on 03/28/2024 at 16:05
== END 2024-03-28 15:55 | disposition home or self-care (01) ==
PROVIDERS: PCP Radiology Diagnostic Radiology; Visit Provider Radiology Diagnostic Radiology
DX: I80.01 Phlebitis and thrombophlebitis of superficial vessels of right lower extremity (principal)
CPT/HCPCS: 93971; G0463

== ENCOUNTER 2024-09-02 10:46 | Outpatient (OUT) | payer OTHER, SELFPAY ==
--- NOTE | 2024-09-02 10:51 | XR_ITS ---
The [address] [address] Patient Name: KASSANDRA LOPEZ MRN: [id number] date: 1965 Sex: F Assigned Patient Location: [facility] Current Patient Location: [facility] Accession/Order Number: [id number] Exam Date: 09/02/2024 11:27 Report Date: 09/02/2024 11:29 At the request of: POLY GONSALES DPMauri Procedure: XR foot LT min 3V LEFT FOOT - 3 views CLINICAL DATA: Pain at the dorsum and lateral aspect left foot for the past month. No injury. COMPARISON: 11/24/2023 Weightbearing AP, lateral and oblique views were obtained. There is no evidence of fracture or dislocation. There is mild enthesophyte formation at the base of the fifth metatarsal. There is minimal spurring at the dorsum of the tarsals. Calcaneal spurs are seen. There are no significant soft tissue abnormalities. XR/XR foot LT min 3V IMPRESSION: NO ACUTE BONY FINDINGS. Impression dictated by: Shena Fox M.D. 09/02/2024 11:29 AM Dictation Location: [place] [address] Electronically authenticated by: [id number] Y Date: 09/02/2024 11:29
--- OUTSIDE RECORDS SUMMARY | 2024-09-02 10:57 | XMS_ITS | CCD ---
Author Organization [facility] Care Team Providers Care Casino Floor Walker Name Role Phone Shai Gary Primary Care Physician [phone] JEFFREY ., DR DRUMMOND Consulting Unavailable MURPHY ., DR DRUMMOND Attending Unavailable HOY ., DR GIBBONS Primary Care Unavailable MURPHY ., DR DRUMMOND Admitting Unavailable HOY ., DR GIBBONS Primary Care Unavailable HOY ., DR GIBBONS Admitting Unavailable HOY ., DR GIBBONS Attending Unavailable HOY ., DR GIBBONS Consulting Unavailable MURPHY ., DR DRUMMOND Consulting Unavailable MURPHY ., DR DRUMMOND Admitting Unavailable HOY ., DR GIBBONS Primary Care Unavailable MURPHY ., DR DRUMMOND Attending Unavailable MURPHY ., DR DRUMMOND Admitting Unavailable MURPHY ., DR DRUMMOND Attending Unavailable HOY ., DR GIBBONS Primary Care Unavailable MURPHY ., DR DRUMMOND Consulting Unavailable ZIEBER, DR [...] Unavailable SKIE, MAX Attending Unavailable SKIE, MAX Admitting Unavailable SKIE, MAX Attending Unavailable SKIE, MAX Attending Unavailable SKIE, MAX Attending Unavailable SKIE, MAX Attending Unavailable Bárbara CNP, Laine Unavailable BárbaraAmaris peraza CNPa Unavailable [phone] Hoda MURPHY Attending Unavailable Allen Noriega Admitting Unavailable Allen Noriega Attending Unavailable Allen Noriega Referring Unavailable Allen Noriega Admitting Unavailable Allen Noriega Attending Unavailable LUCIO MIXON Attending Unavailable LUCIO MIXON Referring Unavailable INES ARORA Referring Unavailable LUCIO MXION Attending Unavailable LAINE GRANGER Referring Unavailable LUCIO MIXON Referring Unavailable VAISHNAVI BLACK Attending Unavailable VAISHNAVI BLACK Attending Unavailable VAISHNAVI BLACK Admitting Unavailable Allergies Allergy Classification Reported Allergen(s) Allergy Type Date of Onset Reaction(s) Facility (11 sources) levoFLOXacin; Translations: [levofloxacin] Drug Allergy 02-22-20 16 .. [facility] (20 sources) PHENobarbital; Translations: [phenobarbital] Drug Allergy 07-07-19 15 Unknown [facility] (10 sources) Sulfonamides (Antibiotic); Translations: [sulfa drugs] Drug allergy [facility] (1 source) benzoin resin Drug Allergy 08-21-19 16 [facility] (1 source) levoFLOXacin Drug Allergy 08-21-19 16 [facility] (1 source) Sulfonamides (Antibiotic) Drug allergy (disorder) 08-21-19 16 [facility] (11 sources) Sulfamethoxazole / Trimethoprim; Translations: [SULFAMETHOXAZOLE-TR IMETHOPRIM] Drug Allergy 07-07-19 15 [facility] Repository (1 source) Sulfonamides (Antibiotic); Translations: [SULFA (SULFONAMIDE ANTIBIOTICS)] Propensity to adverse reactions to drug (disorder) 12-20-19 15 [facility] Repository Medications Current Medications Medication Drug Class(es) Dates Sig (Normalized) Sig (Original) Airborne Gummies (8 sources) Start: 04-16-2020 Airborne Gummies Chewed, Daily Start Date: 04/16/20 Status: Ordered amitriptyline hydrochloride 10 mg oral tablet (9 sources) Tricyclic Antidepressant take 1 tablet by mouth once daily at bedtime amitriptyline (ELAVIL) 10 mg tablet Take 10 mg by mouth daily at bedtime. Active aspirin 81 mg delayed release oral tablet (2 sources) Platelet Aggregation Inhibitor, Nonsteroidal Anti-inflammatory Drug Start: 03-02-2024 take 1 tablet by mouth once daily aspirin 81 mg Oral EC Tab 81 mg = 1 tab(s), Oral, Daily Start Date: 03/02/24 Status: Ordered cephalexin 500 mg oral capsule (4 sources) Cephalosporin Antibacterial Start: 03-02-2024 End: 03-09-2024 take 1 capsule by mouth every twelve hours Keflex 500 mg Cap 500 mg = 1 cap(s), Oral, q12hr, X 7 day(s), # 14 cap(s), Refills(s) 0, Pharmacy: [facility]/pharmacy #[id number], 161, cm, 03/02/24 12:34:00 EST, Height/Length Dosing, 102.7, kg, 03/02/24 12:38:00 EST, Weight Dosing Start Date: 03/02/24 Stop Date: 03/09/24 Status: Ordered Start: 07-02-2021 End: 07-09-2021 take 1 capsule by mouth every twelve hours Keflex 500 mg Cap 500 mg = 1 cap(s), Oral, q12hr, X 7 day(s), # 14 cap(s), Refills(s) 0, [id number] 161, cm, 05/13/21 9:04:00 EST, Height/Length Dosing, 91.5, kg, 05/13/21 9:04:00 EST, Weight Dosing Start Date: 07/02/21 Stop Date: 07/09/21 Status: Ordered fluconazole 150 mg oral tablet (2 sources) Azole Antifungal Start: 07-02-2021 End: 07-09-2021 Diflucan 150 mg Tab See Instructions, 1 tab po q72 hrs x 3 doses, then dc, # 3 tab(s), Refills(s) 0, [id number], 161, cm, 05/13/21 9:04:00 EST, Height/Length Dosing, 91.5, kg, 05/13/21 9:04:00 EST, Weight Dosing Start Date: 07/02/21 Stop Date: 07/09/21 Status: Ordered Prevacid (8 sources) Proton Pump Inhibitor Start: 09-19-2019 Prevacid Oral, Daily, Refills(s) 0 Start Date: 09/19/19 Status: Ordered metoclopramide 5 mg oral tablet (9 sources) Dopamine-2 Receptor Antagonist take 1 tablet by mouth once daily at bedtime metoclopramide HCl (REGLAN) 5 mg tablet Take 5 mg by mouth daily at bedtime. Active Multivitamin, Therapeutic w/ Minerals (8 sources) Start: 01-11-2016 take 1 tablet by mouth once daily Multivitamin, Therapeutic w/ Minerals 1 tab(s), Oral, Daily, Refill(s) 0, Prophylaxis Start Date: 01/11/16 Status: Ordered [place]-3 Fatty Acids-Vitamin E (FISH OIL) 1,000 mg cap (9 sources) [place]-3 Fatty Acids-Vitamin E (FISH OIL) 1,000 mg cap Take 1 capsule by mouth. Active [place]-3 Fatty Ac ids-Vitamin E (FISH OIL) 1,000 mg cap Take 1 capsule by mouth. 0 Active ONE DAILY MULTIVITAMIN ORAL (9 sources) ONE DAILY MULTIV ITAMIN ORAL Take by mouth. Active ONE DAILY MULTIV ITAMIN ORAL Take by mouth. 0 Active Problems Active Problems Problem Classification Problem Date Documented Date Episodic/Chronic Abdominal pain (8 sources) Abdominal pain 04-16-2020 Episodic Calculus of urinary tract (15 sources) Kidney stone; Translations: [Calculus of kidney] Onset: 3 05-30-2019 Episodic Disorders of lipid metabolism (1 source) Pure hypercholesterolemia, unspecified; Translations: [PURE HYPERCHOLESTEROLEMIA UNSPEC] Onset: 3 Chronic Genitourinary symptoms and ill-defined conditions (10 sources) Female stress incontinence; Translations: [Stress incontinence (female) (male)] Onset: 3 05-30-2019 Chronic Genitourinary symptoms and ill-defined conditions (20 sources) Microscopic hematuria; Translations: [Other microscopic hematuria] [...] Translations: [Post-op] Onset: 3 Urinary tract infections (11 sources) Chronic cystitis; Translations: [Other chronic cystitis without hematuria] Onset: 3 04-16-2020 Chronic Urinary tract infections (8 sources) Urinary tract infectious disease 04-16-2020 Episodic [...] Test Name Value Interpretation Reference Range Facility C Urineon 03-04-2024 Bacteria identified Cx Nom (U) Microbiology PROCEDURE: Urine Culture [R1] SOURCE: U CleanCatch BODY SITE: COLLECTED DATE/TIME: 03/02/2024 13:19 EST RECEIVED DATE/TIME: 03/02/2024 17:39 EST START DATE/TIME: 03/02/2024 17:39 EST FREE TEXT SOURCE: VAISHNAVI BLACK PA-C, PA-C, VAISHNAVI Navas FINAL REPORTS Final Report [] Verified Date/Time: 03/04/2024 08:24 EST >100,000 cfu/ml Escherichia coli 1,000 cfu/ml Mixed skin contaminants SUSCEPTIBILITY RESULTS LEGEND: S=Susceptible, N/R=Not Reported, Blank=Data not available, or drug not advisable or tested, I=Intermediate, ESBL=Extended spectrum beta-lactamase, R=Resistant, TFG=Thymidine-depende nt strain, EDGARDO=Beta-lactamase positive, MOISES=mcg/m;(mg/L), S*=Predicted susceptible interp, R*=Predicted resistant interp EC Antibiotic MOISES Dilutn MOISES Interp Ampicillin <=8 S Ampicillin/ <=8/4 S Sulbactam Aztreonam <=4 S Cefazolin <=2 S Cefepime <=2 S Ceftazidime <=1 S Ceftazidime/ <=8 S Avibactam Ceftriaxone <=1 S Cefuroxime <=4 S Ciprofloxacin <=0.25 S Ertapenem <=0.5 S Gentamicin <=2 S Levofloxacin <=0.5 S Meropenem <=1 S Nitrofurantoin <=32 S Piperacillin/ <=8 S Tazobactam Tetracycline <=4 S Tobramycin <=2 S Trimethoprim/ <=2/38 S Sulfa Performing Locations R1: This test was performed at: [facility], [address] [place] [address], [address] , [place], Normal [facility] Comment on above: Performed By: #### [id number] #### [facility] [address] [place] [address] Ambulatory Visit Summaryon 1 05-02-2023 Ambulatory Visit Summary Ambulatory Visit Summary ALYSSA ANTOINE :1965 Visit Date:03/02/2024 Ambulatory Visit Instructions Your Diagnosis Kidney stone Chronic cystitis Feeling of incomplete bladder emptying Tests Performed XR Abdomen 1 View -- Results Pending -- Please visit your patient portal for your results or contact your primary care physician. Your Care Team Attending Physician - VAISHNAVI BLACK PA-C Primary Care Physician - Shai Gary MD This Is Your Medications List Contact prescribing physician if questions or concerns aspirin (aspirin 81 mg Oral EC Tab) lansoprazole (Prevacid) multivitamin with minerals (Airborne Gummies) multivitamin with minerals (Multivitamin, Therapeutic w/ Minerals) Procedures Performed ESWL - Extracorporeal shockwave lithotripsy for renal calculus (03/05/2017), Procedure on back (2016), Carpal tunnel release (2015), Tonsillectomy (1989). Discharge Vitals Temperature (Temporal Artery) 36.8 ???C Heart Rate (Peripheral) 97 Respiratory Rate 16 Blood Pressure 132/92 Height 161 cm Height 63 in Weight 102.7 kg Weight 226.414 lb BMI 39.62 Medications What How Much When Instructions Unchanged aspirin (aspirin 81 mg Oral EC Tab) 1 Tablets By Mouth Every day Contact prescribing physician if questions or concerns Unchanged lansoprazole (Prevacid) By Mouth Every day Contact prescribing physician if questions or concerns Unchanged multivitamin with minerals (Airborne Gummies) Chewed Every day Contact prescribing physician if questions or concerns Unchanged multivitamin with minerals (Multivitamin, Therapeutic w/ Minerals) 1 Tablets By Mouth Every day Contact prescribing physician if questions or concerns Allergies Levaquin (..) PHENobarbital (..) sulfa drugs (RASH) Problems Ongoing - Any problem that you are currently receiving treatment for. Abdominal pain Chronic cystitis Female stress incontinence Infrequent urination Kidney stone Microscopic hematuria Nocturia UTI (urinary tract infection) Patient Survey You may receive a survey via text or e-mail asking about your office visit. Please share your experience with us by completing your survey. We appreciate your feedback and thank you for choosing us for your care. Dashawn Navarrete [facility] Urology Office/Clinic Noteon 03-02-2024 Urology Office/Clinic Note Urology Office/Clinic Note Chief Complaint Urinary frequency/urgency HPI Staff 58 year old female PRW patient here for urinary frequency/urgency. Previous dx: kidney stone, chronic cystitis, female stress incontinence. Dysuria: towards the end of urination, has some pain and burning Incomplete bladder emptying: yes Hematuria: denies Frequency: once every hour Urgency: yes Nocturia: last night went 4 times but usually she goes once a night Stream: denies hesitancy, has a strong stream but doesn't feel a lot comes out Leaking: denies Post void dripping: denies Wearing pads/ Depends: denies Urge incontinence: denies Stress incontinence: _when coughing and sneezing sometimes Incontinence without Sensory Awareness: denies Abdominal pain: denies Flank pain: denies Sexual complaints: _ History of Present Illness staff HPI reviewed and agree. Tests Reviewed: Reviewed UA. Review of Systems PHQ Score Initial Depression Screen Score: 3 SCORE Detailed Depression Screen Score: 4 Total Depression Screen Score: 7 no fever, chills, malaise, myalgia. no rash/lesions. no chest pain, palpitations, or SOB. no abdominal pain, nausea, vomiting. no unilateral calf swelling, redness, pain Physical Exam Vitals & Measurements T: 36.8 ???C(Temporal Artery) HR: 97(Peripheral) RR: 16 BP: 132/92 HT: 63 in HT: 161 cm WT: 102.7 kg WT: 226.414 lb BMI: 39.62 General: nontoxic, NAD Mouth: moist mucosa Lungs: normal respiratory effort Cardio: regular rate, good distal perfusion Abdomen: nondistended, no suprapubic distention or tenderness, no CVA tenderness Neurologic: Grossly normal Skin: No rashes or suspicious lesions Assessment/Plan 1. Chronic cystitis (N30.20: Other chronic cystitis without hematuria) No UTIs since last ov. Shares she feels like she as a UTI started 2 days ago. Has urgency/frequency, burning. No fever. Denies Gross hematuria. Denies weak streams. UA today shows small blood and leuks. -will send urine for ucx. start empiric Kelfex 500mg BID x 7days. Sent to [facility]. -Discussed a cystoscopy if the culture is neg and her sxs don't improve w abx (to rule out possible stricture). Ordered: E&M of Est. Patient Moderate 30-39 Min 16160 2. Kidney stone (N20.0: Calculus of kidney) KUB 04/25/21 - Neg. KUB 05/22/22 [facility] - Right nephrolithiasis versus overlying bowel content artifact. Numerous pelvic calcifications favoring phleboliths. A distal ureteral stone cannot be completely excluded. no recent Kidney stone imaging. No kidney stones issues since prior OV. Pt agrees to update imaging. -KUB at [place] Ordered: E&M of Est. Patient Moderate 30-39 Min 22424 Urnls Dip Stick Auto w/o Microscopy POC 20139 XR Abdomen 1 View 3. Feeling of incomplete bladder emptying (R39.14: Feeling of incomplete bladder emptying) PVR : 0 -feels like she is not emptying completely. Ordered: 07260 Measure Post Void residual urine and/or bladder capacity by US- non-imaging E&M of Est. Patient Moderate 30-39 Min 89443 Orders: cephalexin, 500 mg = 1 cap(s), Oral, q12hr, X 7 day(s), # 14 cap(s), Refills(s) 0, Pharmacy: [facility]/pharmacy #[id number], 161, cm, 03/02/24 12:34:00 EST, Height/Length Dosing, 102.7, kg, 03/02/24 12:38:00 EST, Weight Dosing Urine Culture Follow up pending ucx and KUB. Pt understands and agrees with plan. Follow-up With When Contact Information NIKI SPEARS, VAISHNAVI Navas, URL [address] [place] [address] Additional Instructions: Follow up pending ucx and KUB. Patient Education Urinary Tract Infection, Adult Kidney Stones, Gggo-gf-Wgwc Kendall Cristobal, personally scribed for TOÑA Cobos on 03/02/2024 13:28:22. . Documentation recorded by the scribe Jatoria Cage accurately reflects the services(s) I performed and decisions made by me. Authenticated by Vaishnavi Black PA-C on 03/02/2024 13:44:20. Problem List/Past Medical History Ongoing Abdominal pain Chronic cystitis Female stress incontinence Infrequent urination Kidney stone Microscopic hematuria Nocturia UTI (urinary tract infection) Historical No qualifying data Procedure/Surgical History ESWL - Extracorporeal shockwave lithotripsy for renal calculus (03/05/2017), Procedure on back (2016), Carpal tunnel release (2015), Tonsillectomy (1989). Medications Airborne Gummies, Chewed, Daily aspirin 81 mg Oral EC Tab, 81 mg= 1 tab(s), Oral, Daily Keflex 500 mg Cap, 500 mg= 1 cap(s), Oral, q12hr Multivitamin, Therapeutic w/ Minerals, 1 tab(s), Oral, Daily Prevacid, Oral, Daily Allergies Levaquin (..) PHENobarbital (..) sulfa drugs (RASH) Social History Alcohol Never., 03/02/2024 Substance Abuse Never., 03/02/2024 Tobacco Never (less than 100 in lifetime) Tobacco Use:. Never Smokeless Tobacco Use:., 03/02/2024 Never (less than 100 in lifetime) Tobacco Use:., 04/16/2020 (more content not included)... Normal [facility] Comment on above: Result Comment: Elec tronically Signed By: VAISHNAVI BLACK PA-C.br\Date and Time Signed: 03/02/24 13:44 EST\.br\Electronically Co-Signed By: Kendall Ferrobr\Date and Time Co-Signed: 03/02/24 13:29 EST Shira 01-14-2024 CNOV Office Visit (OTMBHT ) ALYSSA ANTOINE ([id number]) 1965 F Date Time Provider Department 01/14/24 12:40 PM LUCIO MIXON During your visit today, we recorded the following information about you: Lucio Mixon MD 02/09/2024 8:08 AM Signed Lucio Mixon MD Department of Orthopaedics Orthopaedic Surgery [facility] [address] [address] [facility] [address] Dept: [phone] Dept January 14, 2024 CHIEF COMPLAINT: Pain [...] before without relief. 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 ASSESSMENT: M18.12 Primary osteoarthritis of first carpometacarpal joint of left hand (primary encounter diagnosis) PLAN: She primarily has OA of the thumb joint. She has a normal nerve test (dated 09/29/2023) after her surgery last September. She may need her cervical spine investigated. As I cannot correlate her symptoms to carpal tunnel again. OBJECTIVE: Ms. Alyssa Antoine is a pleasant 58 year old in [...] studies of the median nerve and normal xxdarq-hc-yldge comparative studies. - No electrodiagnostic evidence of [...] ONE DAILY MULTIVITAMIN ORAL Take by mouth. [place]-3 Fatty Acids-Vitamin E (FISH OIL) 1,000 mg [...] Lucio Mixon MD Referring Provider: LUCIO MIXON [[id number]] Allergies As of Date: 01/14/2024 Noted Allergy [...] DAILY MULTIVITAMIN ORAL Take by mouth. - [place]-3 Fatty Acids-Vitamin E (FISH OIL) 1,000 mg cap Take 1 capsule by mouth. - amitriptyline (ELAVIL) 10 mg tablet Take 10 mg by mouth daily at bedtime. - metoclopramide HCl (REGLAN) 5 mg tablet Take 5 mg by mouth daily at bedtime. Problem List As Of Date: 01/14/2024 (None) Letter Text Encounter Status:Closed by LUCIO MIXON on 02/09/24 Normal [facility] Reference Lab Notificationon 01-01-2024 Results Report See Ref Lab Report Normal [facility] [place] Comment on above: Performed By: #### 2 [id number] #### [facility] [address] [place] [address] US Pelvis Non-OB Completeon 01-01-2024 US Pelvis [...] Ultrasound Performed Transvaginal Ultrasound Performed Normal [facility] US Transvaginal Non-OBon US Transvaginal Non-OB Exam Date/Time: 12/29/2023 17:34 EDT Reason for Exam: N95.0 Report Review ultrasound pelvis non-OB complete for report of the US transvaginal non-OB. Ordering Provider: Allen Noriega FINAL REPORT Dictated: 01/01/2024 2:11 pm Rodríguez Schultz MD Signed (Electronic Signature): 01/01/2024 2:11 pm Signed by: Rodríguez Schultz MD Transcribed by: OLIVIA Technologist: MELY Tamez [facility] TEST IN QUESTION - CYTOLOGYo n 12-29-2023 CONTAINER TYPE: TP Normal [facility] Comment on above: Order Comment: FASTI NG: UNKNOWN Performed By: #### 3 [id number] #### [facility] [address], [address] [place] [address] Asl Interpreter: Dmitri Maradiaga MD QUESTION/PROBLEM Normal [facility] Comment on above: Order Comment: FASTI NG: UNKNOWN Result Comment: PER CESILIA Salcedo AT CLIENT OFFICE, RUN TEST CODE [id number]. Performed By: #### 3 [id number] #### [facility] [address], [address] [place] [address] Asl Interpreter: Dmitri Maradiaga MD Reference Lab Notificationon 12-28-2023 Ref Lab [facility] Normal [facility] Comment on above: Performed By: #### 2 [id number] #### [facility] [address] [place] [address] [facility] 09-29-2023 CNPN Telephone (EMGMN) ALYSSA ANTOINE ([id number]) 1965 F Date Time Provider Department 09/29/23 INES ARORA EMGMN During your visit today, we recorded [...] DAILY MULTIVITAMIN ORAL Take by mouth. - [place]-3 Fatty Acids-Vitamin E (FISH OIL) 1,000 mg cap Take 1 capsule by mouth. - amitriptyline (ELAVIL) 10 mg tablet Take 10 mg by mouth daily at bedtime. - metoclopramide HCl (REGLAN) 5 mg tablet Take 5 mg by mouth daily at bedtime. Problem List As Of Date: 09/29/2023 (None) Encounter Status:Closed by NEEMA CAMPOS on 09/29/23 Normal [facility] EMG(NEURO/NI)on 09-29-2023 Results can be seen in attached scanned documents. If you are a patient reviewing this test result, call the doctor who ordered the test with any questions. [facility] CNPN Telephone (EMGMN) ALYSSA ANTOINE ([id number]) 1965 F Date Time Provider Department 08/28/23 INES ARORA EMGMN During your visit today, we recorded the following information about you: Mandy Preciado 08/28/2023 3:44 PM Signed Spoke with Alyssa Antoine on 08/27 in regards to getting scheduled [...] DAILY MULTIVITAMIN ORAL Take by mouth. - [place]-3 Fatty Acids-Vitamin E (FISH OIL) 1,000 mg cap Take 1 capsule by mouth. - amitriptyline (ELAVIL) 10 mg tablet Take 10 mg by mouth daily at bedtime. - metoclopramide HCl (REGLAN) 5 mg tablet Take 5 mg by mouth daily at bedtime. Problem List As Of Date: 08/28/2023 (None) Encounter Status:Closed by MANDY PRECIADO on 08/28/23 [facility]) [facility] ([id number]) 1965 F Date Time Provider Department 08/20/23 LUCIO MIXON [facility] During your visit today, we recorded the following information about you: Karly Leija 08/20/2023 9:18 AM Signed Name of Caller: [facility] at [facility] Relationship to patient: Last visit in this department: 08/13/2023 Reason for Call: Other : Nayeli calling from Occupational Health to get office notes and any test results if applicable for the 08/13/23 visit. Please fax to [phone] Callback number: [phone] Fax Number (if necessary): [phone] Additional info if needed (Prior Auth #, [...] DAILY MULTIVITAMIN ORAL Take by mouth. - [place]-3 Fatty Acids-Vitamin E (FISH OIL) 1,000 mg cap Take 1 capsule by mouth. - amitriptyline (ELAVIL) 10 mg tablet Take 10 mg by mouth daily at bedtime. - metoclopramide HCl (REGLAN) 5 mg tablet Take 5 mg by mouth daily at bedtime. Problem List As Of Date: 08/20/2023 (None) Encounter Status:Closed by VALENTINA LINDSEY on 08/24/23 [facility] CNOVon 08-13-2023 CNOV Office Visit (OTMBHT ) ALYSSA ANTOINE ([id number]) 1965 F Date Time Provider Department 08/13/23 9:20 AM LUCIO MIXON During your visit today, we recorded the following information about you: Lucio Mixon MD 09/08/2023 4:53 PM Signed Lucio Mixon MD Department of Orthopaedics Orthopaedic Surgery [facility] [address] [facility] [address] Dept: [phone] Dept August 13, 2023 CHIEF COMPLAINT: New [...] cervical involvement, or other. OBJECTIVE: Ms. Alyssa Antoine is a pleasant 58 year old in [...] ONE DAILY MULTIVITAMIN ORAL Take by mouth. [place]-3 Fatty Acids-Vitamin E (FISH OIL) 1,000 mg [...] physician via [place] mail. Laine Granger CNP [address] [place], [place] [id number] Lucio Mixon MD Referring Provider: LAINE GRANGER [[id number]] Allergies As of Date: 08/13/2023 Noted Allergy Reaction BACTRIM (SULFAMETHOXAZOLE-TRI METH*07/06/2014 2 - Rash PHENOBARBITAL 07/06/2014 16 - Unknown Date Reviewed: 08/13/2023 Reviewed by: Nargis tSiles MA - Fully Assessed Reason for Visit: New [[id number]] Pain [78] Primary Visit Diagnosis:Numbness and tingling in left hand [R20.0, R20.2] Prescriptions as of 09/08/2023 - ONE DAILY MULTIVITAMIN ORAL Take by mouth. - [place]-3 Fatty Acids-Vitamin E (FISH OIL) 1,000 mg cap Take 1 capsule by mouth. - amitriptyline (ELAVIL) 10 mg tablet Take 10 mg by mouth da (more content not included)... Normal [facility] XR WRIST 3V PA/LAT/OBL LTon 08-13-2023 [...] IMPRESSION: REMOTE POSTSURGICAL AND DEGENERATIVE CHANGES DESCRIBED Primer Supervisor: [facility]rayan Transcribe Date/Time: Aug 13 2023 10:48A Dictated by : SARITA WILEY MD This examination was interpreted and the report reviewed and electronically signed by: SARITA WILEY MD on Aug 13 2023 10:50AM EST [id number] Normal [facility] XR Wrist - left PA and Later al and Obliqueon 08-13-2023 IMPRESSION: REMOTE POSTSURGICAL AND DEGENERATIVE CHANGES DESCRIBED Primer Supervisor: KASSI Transcribe Date/Time: Aug 13 2023 10:48A [...] soft tissue swelling. DIVISION OF RADIOLOGY Provider, Erlinda Ambriz - 08/13/2023 * * *Final Report* * [...] IMPRESSION: REMOTE POSTSURGICAL AND DEGENERATIVE CHANGES DESCRIBED Primer Supervisor: PSCBrayan Transcribe Date/Time: Aug 13 2023 10:48A Dictated by : SARITA WILEY MD This examination was interpreted and the report reviewed and electronically signed by: SARITA WILEY MD on Aug 13 2023 10:50AM EST [facility] Radiology Study observation (narrative) [facility] XR Wrist - left PA and Later al and ObliqueOrdered By: Ccf Provider on 08-13-2023 [facility] ic Provider Letteron 04-23-2023 Provider Letter April 23, 2023 ALYSSA ANTOINE [address] [place] [address] : 1965 Dear Alyssa , We have been trying to reach you with no success. You have an appointment with Dr. Hoda Murphy on May 29 which will need to be rescheduled since he will be out of the office that day. Please contact the office at the number listed below to get this appointment rescheduled at your earliest convenience. Thank you for your prompt attention to this matter. Sincerely, [facility] [address], [place] [address] [facility] Follow-Upon 04-22-2023 Follow-Up [id number] ArashAlyssa 1965 Date Provider Department Center 04/22/2023 MAX MUSTAFA MP Family History Family history unknown: Yes Level of Service:72691 AR OFFICE/OUTPT VISIT,PROCEDURE ONLY Reason for Visit and Comments: Follow-up [839384] - Constant tingling - thumb goes numb when driving or holding something for a bit and the numbness also goes into the middle finger as well. Pain [136] - Constant tingling - thumb goes numb when driving or holding something for a bit and the numbness also goes into the middle finger as well. [facility] Follow-Upon 02-10-2023 Follow-Up [id number] Alyssa Antoine 1965 Date Provider Department Center 02/10/2023 MAX MUSTAFA MP Family History Family history unknown: Yes Level of Service:84429 AR OFFICE/OUTPATIENT ESTABLISHED LOW MDM 20-29 MIN Reason for Visit and Comments: Follow-up [178200] [facility] Follow-Upon 11-26-2022 Follow-Up [id number] Alyssa Antoine 1965 Date Provider Department Center 11/26/2022 MAX MUSTAFA MP Family History Family history unknown: Yes Level of Service:33691 AR OFFICE/OUTPATIENT ESTABLISHED LOW MDM 20-29 MIN Reason for Visit and Comments: Pain [136] Follow-up [149243] [facility] Office Visiton 10-15-2022 Follow-up visit [id number] Alyssa Antoine 1965 Date Provider Department Center 10/15/2022 MAX MUSTAFA MP Family History Family history unknown: Yes Level of Service:89588 AR POSTOP FOLLOW UP VISIT RELATED TO ORIGINAL PX (GC) Reason for Visit and Comments: Post-op [483] Follow-up [749051] [facility] 36on 10-02-2022 36 I spoke to the patient to see how she is doing after her recent surgery with Dr Kowalski. Ms Antoine stated she is doing well and that her pain is manageable with medications. She has a follow up with Dr Kowalski on October 15 at 120. She had no other questions or concerns. [facility] HPon 10-01-2022 History Of Present Illness Guillermina Antoine is a 57 y.o. female presenting with [...] Active Problems: Hyperlipidemia L C TR Normal [facility] OPNOTEon 10-01-2022 OPNOTE Operative Note Patient: Guillermina Antoine Date of Surgery: 10/01/2022 : 1965 Pre-operative Diagnosis: Carpal Tunnel Syndrome left Hand Post-operative Diagnosis: same Operation: Carpal Tunnel Release, left (10195) Surgeon: Max Kowalski MD Java [id number] Software Engineer: Drew Chacon MD Staff: Inspector Balance Truing: Mayte Chery RN Scrub Person: Cayetano Ace [...] PACU Condition: stable Max Kowalski MD Normal [facility] POCT GLUCOSE METER UNSOLICIT ED RESULTSon 10-01-2022 Glucose [Mass/Vol] 91 mg/dL Normal 70-105 [facility] Comment on above: Order Comment: Waive d Testing in the ED is performed under the ED CLIA certificate #[id number]. Result Comment: epaw low Performed By: #### L [id number] ####[facility] (BEAKER)[address] [place] [address] [id number] 09-24-2022 [id number] NPO AFTER MIDNIGHT. MUST HAVE A ENTERPRISE SOFTWARE ENGINEER TO TAKE YOU HOME AND SOMEONE TO STAY FOR 24 HOURS AFTER SURGERY. NO JEWELRY OR VALUABLES. HOLD THE MEDS WE SPOKE ABOUT: VITAMINS STARTING 09-27. TAKE THE MEDS WE SPOKE ABOUT WITH A SIP OF WATER DOS: PREVACID, ADIPEX. BRING INSURANCE CARD AND PHOTO ID AND MED LIST. Normal [facility] CITRATE URINE 24HRon 023 Citric Acid, U, 24hr 363 mg/24 hr Normal 320-1240 [facility] Comment on above: Result Comment: This test was developed and its performance characteristics determined by [facility]. It has not been cleared or approved by the Food and Drug Administration. Performed By: #### C ITRATU #### [facility] [address] [address] [address] Prabhu Lopez Citric Acid, Urine 338 mg/L Normal Undefined [facility] Comment on above: Performed By: #### C ITRATU #### [facility] [address] [place] [address] Dr. Prabhu Lopez OXALATE 24HR URINEon 023 Oxalates, Urine 15 mg/L Normal Undefined [facility] Comment on above: Performed By: #### O X24HR #### [facility] [address] [place] [address] Dr. Prabhu Lopez Oxalates, Urine 24hr 16 mg/24 hr Normal 4-31 [facility] Comment on above: Performed By: #### O X24HR #### [facility] [address] [place] [address] Dr. Prabhu Lopez MAGNESIUM 24HR URINEon 08-15 Magnesium 24hr Urine 94.6 mg/24 hr Normal 12.0-293.0 [facility] Comment on above: Performed By: #### U JESI, BMP #### [facility] [address] [place] [address] Dr. Prabhu Lopez Magnesium UR 8.8 mg/dL Normal Not Estab. [facility] Comment on above: Performed By: #### U JESI, BMP #### [facility] [address] [place] [address] Dr. Prabhu Lopez PHOSPHORUS 24HR URINEon 08-04 Phosphorus, Urine 48.2 mg/dL Normal Not Estab. The [facility] Comment on above: Performed By: #### P HOS 24 #### [facility] [address] [place] [address] Dr. Prabhu Lopez Phosphorus, Urine 24hr 518 mg/24 hr Normal 261-1078 [facility] Comment on above: Performed By: #### P HOS 24 #### [facility] [address] [place] [address] Dr. Prabhu Lopez URIC ACID 24 HR URINEon 08-04 Uric Acid, Urine 29.6 mg/dL Normal Not Estab. The [facility] Comment on above: Performed By: #### U JESI, BMP #### [facility] [address] [place] [address] Dr. Prabhu Lopez Uric Acid, Urine 24hr 318.2 mg/24 hr Normal 173.7-902.1 [facility] Comment on above: Performed By: #### U JESI, BMP #### [facility] [address] [place] [address] Dr. Prabhu Lopez CALCIUM 24 HR URINEon 2022 CALC, 24 HR UR 76.3 mg/24 hr Critically low 100.0-300.0 Th [facility] Comment on above: Performed By: #### C [id number] #### [facility] [address] [place] [address] Dr. Prabhu Lopez UR CALCIUM 7.1 mg/dL Normal 5.1-21.0 [facility] Comment on above: Performed By: #### C ALC24U #### [facility] [address] [place] [address] Dr. Prabhu Lopez UR TOT VOL 1075 ml/24 HR Normal The [facility] Comment on above: Performed By: #### C ALC24U #### [facility] [address] [place] [address] Dr. Prabhu Lopez Performed By: #### N A24U, [id number] #### [facility] [address] [place] [address] Dr. Prabhu Lopez CBC AUTO DIFFon 08-14-2022 BASO # 0.1 103/ul Normal 0.0-0.1 [facility] Comment on above: Performed By: #### U JESI, BMP #### [facility] [address] [place] [address] Dr. Prabhu Lopez Basophils/100 WBC (Bld) 1.3 % Normal 0.2-2.0 [facility] Comment on above: Performed By: #### U JESI, BMP #### [facility] [address] [place] [address] Dr. Prabhu Lopez EO # 0.3 103/ul Normal 0.0-0.7 [facility] Comment on above: Performed By: #### U JESI, BMP #### [facility] [address] [place] [address] Dr. Prabhu Lopez Eosinophils/100 WBC (Bld) 5.2 % Normal 0.9-7.0 [facility] Comment on above: Performed By: #### U JESI, BMP #### [facility] [address] [place] [address] Dr. Prabhu Lopez Erythrocyte distribution width (RBC) [Ratio] 12.9 % Normal 11.0-15.0 [facility] Comment on above: Performed By: #### U JESI, BMP #### [facility] [address] [place] [address] Dr. Prabhu Lopez Hematocrit (Bld) [Volume fraction] 42.7 % Normal 36.0-48.0 [facility] Comment on above: Performed By: #### U JESI, BMP #### [facility] [address] [place] [address] Dr. Prabhu Lopez Hemoglobin (Bld) [Mass/Vol] 13.4 g/dL Normal 12.0-16.0 [facility] Comment on above: Performed By: #### U JESI, BMP #### [facility] [address] [place] [address] Dr. Prabhu Lopez IG # 0.02 10e3/ul Normal 0.00-0.03 [facility] Comment on above: Performed By: #### U JESI, BMP #### [facility] [address] [place] [address] Dr. Prabhu Lopez IG % 0.4 % Normal 0.0-0.5 [facility] Comment on above: Performed By: #### U JESI, BMP #### [facility] [address] [place] [address] Dr. Prabhu Lopez LYMPH # 2.0 103/ul Normal 1.2-3.8 [facility] Comment on above: Performed By: #### U JESI, BMP #### [facility] [address] [address] [address] Prabhu Lopez Lymphocytes/100 WBC (Bld) 41.5 % Normal 20.5-60.0 [facility] Comment on above: Performed By: #### U JESI, BMP #### [facility] [address] [place] [address] Dr. Prabhu Lopez MANUAL DIFF REQ NO Normal [facility] Comment on above: Performed By: #### U JESI, BMP #### [facility] [address] [place] [address] Dr. Prabhu Lopez MCH (RBC) [Entitic mass] 28.7 pg Normal 26.7-34.0 [facility] Comment on above: Performed By: #### U JESI, BMP #### [facility] [address] [place] [address] Dr. Prabhu Lopez MCHC (RBC) [Mass/Vol] 31.4 g/dL Normal 29.9-35.2 [facility] Comment on above: Performed By: #### U JESI, BMP #### [facility] [address] [place] [address] Dr. Prabhu Lopez MCV (RBC) [Entitic vol] 91.4 fL Normal 81.0-99.0 [facility] Comment on above: Performed By: #### U JESI, BMP #### [facility] [address] [place] [address] Dr. Prabhu Lopez MONO # 0.4 103/ul Normal 0.3-0.8 [facility] Comment on above: Performed By: #### U JESI, BMP #### [facility] [address] [place] [address] Dr. Prabhu Lopez Monocytes/100 WBC (Bld) 8.3 % Normal 1.7-12.0 [facility] Comment on above: Performed By: #### U JESI, BMP #### [facility] [address] [place] [address] Dr. Prabhu Lopez NEUT # 2.1 103/ul Normal 1.4-6.5 [facility] Comment on above: Performed By: #### U JESI, BMP #### [facility] [address] [address] [address] Prabhu Lopez Neutrophils/100 WBC (Bld) 43.3 % Normal 43.0-75.0 [facility] Comment on above: Performed By: #### U JESI, BMP #### [facility] [address] [address] [address] Prabhu Lopez Platelet mean volume (Bld) [Entitic vol] 11.7 fL Normal 9.5-13.5 [facility] Comment on above: Performed By: #### U JESI, BMP #### [facility] [address] [place] [address] Dr. Prabhu Lopez PLT 237 103/ul Normal 150-450 [facility] Comment on above: Performed By: #### U JESI, BMP #### [facility] [address] [place] [address] Dr. Prabhu Lopez RBC 4.67 106/ul Normal 4.20-5.40 [facility] Comment on above: Performed By: #### U JESI, BMP #### [facility] [address] [place] [address] Dr. Prabhu Lopez WBC 4.8 103/ul Normal 4.0-11.0 [facility] Comment on above: Performed By: #### U JESI, BMP #### [facility] [address] [place] [address] Dr. Prabhu Lopez CREA 24 HR URINEon CREA, 24 HR UR 875.48 mg/24 hr Normal 800.00-1,8 00. 00 [facility] Comment on above: Performed By: #### N A24U, [id number] #### [facility] [address] [place] [address] Dr. Prabhu Lopez URINE CREAT 81.44 mg/dL Normal 20.00-300.00 [facility] Comment on above: Performed By: #### N A24U, [id number] #### [facility] [address] [place] [address] Dr. Prabhu Lopez FREE THYROXINE INDEX T7on FTI 2.34 Normal 1.30-4.50 [facility] Comment on above: Performed By: #### U JESI, BMP #### [facility] [address] [address] [address] Prabhu Lopez T3U 33.0 % Normal 30.0-39.0 [facility] Comment on above: Performed By: #### U JESI, BMP #### [facility] [address] [address] [address] Prabhu Lopez T4 [Mass/Vol] 7.10 ug/dL Normal 4.80-13.90 [facility] Comment on above: Performed By: #### U JESI, BMP #### [facility] [address] [place] [address] Dr. Prabhu Lopez GLYCOHEMOGLOBIN A1Con 2022 ADA RECOMMENDATION SEE BELOW Normal [facility] Comment on above: Result Comment: ADA RECOMMENDED LIMIT 4.0 - 6.0 ADA THERAPEUTIC TARGET < 7.0 ACTION SUGGESTED > 7.0 Performed By: #### U JESI, BMP #### [facility] [address] [place] [address] Dr. Prabhu Lopez Glucose [Mass/Vol] 123 mg/dL Normal [facility] Comment on above: Performed By: #### U JESI, BMP #### [facility] [address] [place] [address] Dr. Prabhu Lopez HbA1c (Bld) [Mass fraction] 5.9 % Normal 4.5-6.2 [facility] Comment on above: Performed By: #### U JESI, BMP #### [facility] [address] [place] [address] Dr. Prabhu Lopez LIPID PROFILEon 08-14-2022 CHOL-HDL RATIO NORM SEE BELOW Normal [facility] Comment on above: Result Comment: 3.3 - 4.4 LOW RISK 4.4 - 7.1 AVERAGE RISK 7.1 - 11.0 MODERATE RISK >11.0 HIGH RISK Performed By: #### U JESI, BMP #### [facility] [address] [address] [address] Prabhu Lopez Cholesterol [Mass/Vol] 255 mg/dL Critically high <=200 [facility] Comment on above: Performed By: #### U JESI, BMP #### [facility] [address] [address] [address] Prabhu Lopez Cholesterol in HDL [Mass/Vol] 80 mg/dL Critically high 40-60 [facility] Comment on above: Performed By: #### U JESI, BMP #### [facility] [address] [address] [address] Prabhu Lopez Cholesterol in LDL [Mass/Vol] 156.6 mg/dL Normal [facility] Comment on above: Performed By: #### U JESI, BMP #### [facility] [address] [address] [address] Prabhu Lopez Cholesterol.total/C holesterol in HDL [Mass ratio] 3.2 {ratio} Normal [facility] Comment on above: Performed By: #### U JESI, BMP #### [facility] [address] [address] [address] Prabhu Lopez HDL NORMAL > or = 60 mg/dl - LO W CARDIOVASCULAR RISK <40 mg/dl - HIGH CARDIOVASCULAR RISK Normal [facility] Comment on above: Performed By: #### U JESI, BMP #### [facility] [address] [address] [address] Prabhu Lopez LDL CALC NORMAL SEE BELOW Normal [facility] Comment on above: Result Comment: <100 mg/dl OPTIMAL 100 - 129 mg/dl NEAR OR ABOVE OPTIMAL 130 - 159 mg/dl BORDERLINE HIGH 160 - 189 mg/dl HIGH >190 mg/dl VERY HIGH Performed By: #### U JESI, BMP #### [facility] [address] [address] [address] Prabhu Lopez Triglyceride [Mass/Vol] 92 mg/dL Normal <=150 [facility] Comment on above: Performed By: #### U JESI, BMP #### [facility] [address] [address] [address] Prabhu Lopez VLDL CALC 18.4 mg/dL Normal [facility] Comment on above: Performed By: #### U JESI, BMP #### [facility] [address] [address] [address] Prabhu Lopez PROF 14(COMP METB)on 023 Albumin [Mass/Vol] 3.9 g/dL Normal 3.4-5.0 [facility] Comment on above: Performed By: #### U JESI, BMP #### [facility] [address] [place] [address] Dr. Prabhu Lopez Albumin/Globulin [Mass ratio] 0.8 {ratio} Normal [facility] Comment on above: Performed By: #### U JESI, BMP #### [facility] [address] [place] [address] Dr. Prabhu Lopez ALP [Catalytic activity/Vol] 74 U/L Normal 46-116 [facility] Comment on above: Performed By: #### U JESI, BMP #### [facility] [address] [place] [address] Dr. Prabhu Lopez ALT [Catalytic activity/Vol] 29 U/L Normal 14-59 [facility] Comment on above: Performed By: #### U JESI, BMP #### [facility] [address] [place] [address] Dr. Prabhu Lopez Anion gap [Moles/Vol] 10.9 mmol/L Normal [facility] Comment on above: Performed By: #### U JESI, BMP #### [facility] [address] [place] [address] Dr. Prabhu Lopez AST [Catalytic activity/Vol] 22 U/L Normal 15-37 [facility] Comment on above: Performed By: #### U JESI, BMP #### [facility] [address] [place] [address] Dr. Prabhu Lopez Bilirubin [Mass/Vol] 0.7 mg/dL Normal 0.2-1.0 [facility] Comment on above: Performed By: #### U JESI, BMP #### [facility] [address] [place] [address] Dr. Prabhu Lopez Calcium [Mass/Vol] 8.9 mg/dL Normal 8.5-10.1 [facility] Comment on above: Performed By: #### U JESI, BMP #### [facility] [address] [address] [address] Prabhu Lopez Chloride [Moles/Vol] 106 mmol/L Normal 98-107 [facility] Comment on above: Performed By: #### U JESI, BMP #### [facility] [address] [address] [address] Prabhu Lopez CO2 [Moles/Vol] 30.1 mmol/L Normal 21.0-32.0 [facility] Comment on above: Performed By: #### U JESI, BMP #### [facility] [address] [address] [address] Prabhu Lopez Creatinine [Mass/Vol] 0.94 mg/dL Normal 0.55-1.02 [facility] Comment on above: Performed By: #### U JESI, BMP #### [facility] [address] [place] [address] Dr. Prabhu Lopez EGFR-AF SOUTH [place]OREAN >60 Normal >=60 [facility] Comment on above: Performed By: #### U JESI, BMP #### [facility] [address] [address] [address] Prabhu Lopez EGFR-NON AF [place]OU[place]OREAN >60 Normal >=60 [facility] Comment on above: Performed By: #### U JESI, BMP #### [facility] [address] [place] [address] Dr. Prabhu Lopez Globulin (S) [Mass/Vol] 4.8 g/dL Normal [facility] Comment on above: Performed By: #### U JESI, BMP #### [facility] [address] [address] [address] Prabhu Lopez Glucose [Mass/Vol] 96 mg/dL Normal 74-106 [facility] Comment on above: Performed By: #### U JESI, BMP #### [facility] [address] [address] [address] Prabhu Lopez Potassium [Moles/Vol] 4.0 mmol/L Normal 3.5-5.1 [facility] Comment on above: Performed By: #### U JESI, BMP #### [facility] [address] [address] [address] Prabhu Lopez Protein [Mass/Vol] 8.7 g/dL Critically high 6.4-8.2 [facility] Comment on above: Performed By: #### U JESI, BMP #### [facility] [address] [address] [address] Prabhu Lopez Sodium [Moles/Vol] 143 mmol/L Normal 136-145 [facility] Comment on above: Performed By: #### U JESI, BMP #### [facility] [address] [address] [address] Prabhu Lopez Urea nitrogen [Mass/Vol] 13.0 mg/dL Normal 7.0-18.0 [facility] Comment on above: Performed By: #### U JESI, BMP #### [facility] [address] [place] [address] Dr. Prabhu Lopez Urea nitrogen/Creatinine [Mass ratio] 13.8 mg/mg Normal [facility] Comment on above: Performed By: #### U JESI, BMP #### [facility] [address] [place] [address] Dr. Prabhu Lopez PTH INTACTon 08-14-2022 PTH, Intact 17 pg/mL Normal 15-65 [facility] Comment on above: Performed By: #### U JESI, BMP #### [facility] [address] [place] [address] Dr. Prabhu Lopez SODIUM 24 HR URINEon 023 NA, 24 HR UR 111 mmol/24 hr Normal 40-220 [facility] Comment on above: Performed By: #### N A24U, [id number] #### [facility] [address] [address] [address] Prabhu Lopez Sodium (U) [Moles/Vol] 103 mmol/L Critically high 30-90 [facility] Comment on above: Performed By: #### N A24U, [id number] #### [facility] [address] [address] [address] Prabhu Lopez TSHon 08-14-2022 TSH 2.531 uIU/mL Normal 0.358-3.740 [facility] Comment on above: Performed By: #### U JESI, BMP #### [facility] [address] [address] [address] Prabhu Lopez PROF CHEM 8 (BAS METB)on Anion gap [Moles/Vol] 8.9 mmol/L Normal [facility] Comment on above: Performed By: #### U JESI, BMP #### [facility] [address] [address] [address] Prabhu Lopez Calcium [Mass/Vol] 9.3 mg/dL Normal 8.5-10.1 [facility] Comment on above: Performed By: #### U JESI, BMP #### [facility] [address] [address] [address] Prabhu Lopez Chloride [Moles/Vol] 108 mmol/L Critically high 98-107 [facility] Comment on above: Performed By: #### U JESI, BMP #### [facility] [address] [address] [address] Prabhu Lopez CO2 [Moles/Vol] 28.5 mmol/L Normal 21.0-32.0 [facility] Comment on above: Performed By: #### U JESI, BMP #### [facility] [address] [address] [address] Prabhu Lopez Creatinine [Mass/Vol] 1.08 mg/dL Critically high 0.55-1.02 [facility] Comment on above: Performed By: #### U JESI, BMP #### [facility] [address] [address] [address] Prabhu Lopez EGFR-AF SOUTH KOREAN >60 Normal >=60 [facility] Comment on above: Performed By: #### U JESI, BMP #### [facility] [address] [place] [address] Dr. Prabhu Lopez EGFR-NON AF [place]OU[place]OREAN 52 mL/min/1.73m2 Critically low >=60 [facility] Comment on above: Performed By: #### U JESI, BMP #### [facility] [address] [place] [address] Dr. Prabhu Lopez Glucose [Mass/Vol] 94 mg/dL Normal 74-106 [facility] Comment on above: Performed By: #### U JESI, BMP #### [facility] [address] [address] [address] Prabhu Lopez Potassium [Moles/Vol] 3.4 mmol/L Critically low 3.5-5.1 [facility] Comment on above: Performed By: #### U JESI, BMP #### [facility] [address] [address] [address] Prabhu Lopez Sodium [Moles/Vol] 142 mmol/L Normal 136-145 [facility] Comment on above: Performed By: #### U JESI, BMP #### [facility] [address] [place] [address] Dr. Prabuh Lopez Urea nitrogen [Mass/Vol] 17.0 mg/dL Normal 7.0-18.0 [facility] Comment on above: Performed By: #### U JESI, BMP #### [facility] [address] [address] [address] Prabhu Lopez Urea nitrogen/Creatinine [Mass ratio] 15.7 mg/mg Normal [facility] Comment on above: Performed By: #### U JESI, BMP #### [facility] [address] [place] [address] Dr. Prabhu Lopez URIC ACID SERUMon 08-12-2022 Urate [Mass/Vol] 4.8 mg/dL Normal 2.6-6.0 [facility] Comment on above: Performed By: #### U JESI, BMP #### [facility] [address] [place] [address] Dr. Prabhu Lopez 36on 08-04-2022 36 Surgery was approved . I called pt to schedule. Pt did not answer LMOV to return call. [facility] Prep for Procedureon 023 Prep for Procedure [id number] Tiffany Antoine 1965 F Date Provider Department Center 08/04/2022 PATRICIA MAK MP ORTHO MPORTHO No family history on file [facility] XR KUB 1 VIEWon [...] WIL KAYE Date: 2022-05-23 09:40 Normal [facility] Covid-19 PCR (CVDTB)on 11-04 SARS-CoV-2 (COVID-19) RNA TANGELA+probe Ql (Unsp spec) Not detected Normal NOT DETECTED [facility] Comment on above: Result Comment: [...] for this test is supported by the Medical Or Surgical Instrument Maker of Health and Human Service's declaration that [...] used). Performed By: #### C [facility] #### [facility] [address] [place] [address] Dr. Prabhu Lopez Covid-19 PCR (CVDTB)on SARS-CoV-2 (COVID-19) RNA TANGELA+probe Ql (Unsp spec) Not detected Normal NOT DETECTED [facility] Comment on above: Result Comment: This test is not yet approved or cleared by the [place] FDA. When there are no FDA-approved or cleared tests available, and other criteria are met, FDA can make tests available under an emergency access mechanism called an Emergency Use Authorization (EUA). The EUA for this test is supported by the Medical Or Surgical Instrument Maker of Health and Human Service's (HHS's) declaration [...] SARS-CoV-2. Performed By: #### C VDTB #### [facility] [address] [place] [address] Dr. Prabhu Lopez B-Type Natriuretic Peptideon 02-12-2021 Natriuretic peptide B (Bld) [Mass/Vol] 36.0 pg/mL Normal 5-100 [facility] Comment on above: Result Comment: PERF ORMED BY: [place] [address] PATHOLOGIST LINUX SUPPORT ENGINEER NICANOR BALTAZAR M.D. Performed By: #### C BC, PTT, CKMB, BMP, CK, BNP, PT, HS TROP #### [address] Basic Metabolic Panelon 0 Calcium [Mass/Vol] 8.9 mg/dL Normal 8.2-10.2 [facility] Comment on above: Performed By: #### C BC, PTT, CKMB, BMP, CK, BNP, PT, HS TROP #### [address] Chloride [Moles/Vol] 104 mmol/L Normal 95-114 [facility] Comment on above: Performed By: #### C BC, PTT, CKMB, BMP, CK, BNP, PT, HS TROP #### [facility] [address] CO2 [Moles/Vol] 24.0 mmol/L Normal 22.0-30.0 [facility] Comment on above: Performed By: #### C BC, PTT, CKMB, BMP, CK, BNP, PT, HS TROP #### [facility] [address] Creatinine [Mass/Vol] 1.06 mg/dL High 0.44-1.03 [facility] Comment on above: Performed By: #### C BC, PTT, CKMB, BMP, CK, BNP, PT, HS TROP #### [facility] [address] Creatinine Clr Calc Pharmacy 64.12 [facility] Comment on above: Result Comment: PERF ORMED BY: [place] [address] PATHOLOGIST LINUX SUPPORT ENGINEER NICANOR BALTAZAR M.D. Performed By: #### C BC, PTT, CKMB, BMP, CK, BNP, PT, HS TROP #### [facility] [address] Estimated GFR ( Najma > 60 [facility] Comment on above: Result Comment: GFR estimated reference range: According to KDOQI guidelines, <60 ml/min/1.73m2 is sufficient to diagnose a patient with chronic kidney disease. Performed By: #### C BC, PTT, CKMB, BMP, CK, BNP, PT, HS TROP #### [facility] [address] Estimated GFR (Non- Am 54 [facility] Comment on above: Performed By: #### C BC, PTT, CKMB, BMP, CK, BNP, PT, HS TROP #### [facility] [address] Glucose [Mass/Vol] 106 mg/dL High 70-100 [facility] Comment on above: Result Comment: [place] Glucose Reference Range is dependent on time and content of last meal. Glucose of more than 200 mg/dL in a nonstressed, ambulatory subject supports the diagnosis of Diabetes Mellitus. ADA recommended reference range Performed By: #### C BC, PTT, CKMB, BMP, CK, BNP, PT, HS TROP #### [address] Potassium [Moles/Vol] 3.3 mmol/L Low 3.5-5.1 [facility] Comment on above: Performed By: #### C BC, PTT, CKMB, BMP, CK, BNP, PT, HS TROP #### [address] Sodium [Moles/Vol] 138 mmol/L Normal 136-146 [facility] Comment on above: Performed By: #### C BC, PTT, CKMB, BMP, CK, BNP, PT, HS TROP #### [address] Urea nitrogen [Mass/Vol] 11 mg/dL Normal 9-23 [facility] Comment on above: Performed By: #### C BC, PTT, CKMB, BMP, CK, BNP, PT, HS TROP #### [address] Complete Blood Count Auto Di ffon 02-12-2021 Basophils (Bld) [#/Vol] 0.1 10*3/uL Normal 0.0-0.2 [facility] Comment on above: Result Comment: PERF ORMED BY: [place] [address] PATHOLOGIST LINUX SUPPORT ENGINEER NICANOR BALTAZAR M.D. Performed By: #### C BC, PTT, CKMB, BMP, CK, BNP, PT, HS TROP #### [address] Basophils/100 WBC (Bld) 1.2 % Normal . [facility] Comment on above: Performed By: #### C BC, PTT, CKMB, BMP, CK, BNP, PT, HS TROP #### [address] Eosinophils (Bld) [#/Vol] 0.2 10*3/uL Normal 0.0-0.45 [facility] Comment on above: Performed By: #### C BC, PTT, CKMB, BMP, CK, BNP, PT, HS TROP #### [address] Eosinophils/100 WBC (Bld) 3.2 % Normal . [facility] Comment on above: Performed By: #### C BC, PTT, CKMB, BMP, CK, BNP, PT, HS TROP #### [address] Erythrocyte distribution width (RBC) [Ratio] 13.5 % Normal 11.9-15.3 [facility] Comment on above: Performed By: #### C BC, PTT, CKMB, BMP, CK, BNP, PT, HS TROP #### [address] Hematocrit (Bld) [Volume fraction] 36.8 % Normal 34.0-46.4 [facility] Comment on above: Performed By: #### C BC, PTT, CKMB, BMP, CK, BNP, PT, HS TROP #### [address] Hemoglobin (Bld) [Mass/Vol] 12.2 g/dL Normal 11.8-15.4 [facility] Comment on above: Performed By: #### C BC, PTT, CKMB, BMP, CK, BNP, PT, HS TROP #### [address] Lymphocytes (Bld) [#/Vol] 2.3 10*3/uL Normal 1.00-4.8 [facility] Comment on above: Performed By: #### C BC, PTT, CKMB, BMP, CK, BNP, PT, HS TROP #### [address] Lymphocytes/100 WBC (Bld) 37.1 % Normal . [facility] Comment on above: Performed By: #### C BC, PTT, CKMB, BMP, CK, BNP, PT, HS TROP #### [address] [address] [address] MCH (RBC) [Entitic mass] 29.5 pg Normal 24.7-34.3 [facility] Comment on above: Performed By: #### C BC, PTT, CKMB, BMP, CK, BNP, PT, HS TROP #### [facility] [address] MCV (RBC) [Entitic vol] 89.0 fL Normal 80-100 [facility] Comment on above: Performed By: #### C BC, PTT, CKMB, BMP, CK, BNP, PT, HS TROP #### [address] Mean Corpuscular HGB Conc 33.2 g/dL Normal 32.0-35.0 [facility] Comment on above: Performed By: #### C BC, PTT, CKMB, BMP, CK, BNP, PT, HS TROP #### [address] Monocytes (Bld) [#/Vol] 0.5 10*3/uL Normal 0.0-0.8 [facility] Comment on above: Performed By: #### C BC, PTT, CKMB, BMP, CK, BNP, PT, HS TROP #### [address] Monocytes/100 WBC (Bld) 8.7 % Normal . [facility] Comment on above: Performed By: #### C BC, PTT, CKMB, BMP, CK, BNP, PT, HS TROP #### [address] Neutrophils (Bld) [#/Vol] 3.1 10*3/uL Normal 1.8-7.7 [facility] Comment on above: Performed By: #### C BC, PTT, CKMB, BMP, CK, BNP, PT, HS TROP #### [address] Neutrophils/100 WBC (Bld) 49.8 % Normal . [facility] Comment on above: Performed By: #### C BC, PTT, CKMB, BMP, CK, BNP, PT, HS TROP #### [address] Nucleated RBC/100 WBC (Bld) [Ratio] 0.0 % Normal 0-0.5 [facility] Comment on above: Performed By: #### C BC, PTT, CKMB, BMP, CK, BNP, PT, HS TROP #### [address] Platelet mean volume (Bld) [Entitic vol] 9.7 fL Normal 6.3-10.7 [facility] Comment on above: Performed By: #### C BC, PTT, CKMB, BMP, CK, BNP, PT, HS TROP #### [address] Platelets (Bld) [#/Vol] 219 10*3/uL Normal 150-450 [facility] Comment on above: Performed By: #### C BC, PTT, CKMB, BMP, CK, BNP, PT, HS TROP #### [address] RBC (Bld) [#/Vol] 4.13 10*6/uL Normal 3.60-5.00 [facility] Comment on above: Performed By: #### C BC, PTT, CKMB, BMP, CK, BNP, PT, HS TROP #### [address] WBC (Bld) [#/Vol] 6.3 10*3/uL Normal 4.5-11.0 [facility] Comment on above: Performed By: #### C BC, PTT, CKMB, BMP, CK, BNP, PT, HS TROP #### [address] Creatine Kinaseon 02-12-2021 CK [Catalytic activity/Vol] 178 U/L Normal 22-269 [facility] Comment on above: Performed By: #### C BC, PTT, CKMB, BMP, CK, BNP, PT, HS TROP #### [facility] [address] Creatinine Kinase MBon 02-12 CK.MB [Mass/Vol] 2.5 ng/mL Normal 0.6-6.3 [facility] Comment on above: Performed By: #### C BC, PTT, CKMB, BMP, CK, BNP, PT, HS TROP #### [facility] [address] CKMB Relative Index 1.4 % Normal 0.00-2.50 [facility] Comment on above: Performed By: #### C BC, PTT, CKMB, BMP, CK, BNP, PT, HS TROP #### [address] Partial Thromboplastin Timeo n 02-12-2021 aPTT Coag (Bld) [Time] 29.3 s Normal 25.1-36.5 [facility] Comment on above: Result Comment: PERF ORMED BY: [place] [address] PATHOLOGIST LINUX SUPPORT ENGINEER NICANOR BALTAZAR M.D. Performed By: #### C BC, PTT, CKMB, BMP, CK, BNP, PT, HS TROP #### [address] Prothrombin Time INRon 02-12 INR Coag (PPP) [Relative time] 1.0 {INR} Normal [facility] Comment on above: Result Comment: INR [...] BMP, CK, BNP, PT, HS TROP #### [address] PT Coag (PPP) [Time] 11.5 s Normal 9.0-12.9 [facility] Comment on above: Performed By: #### C BC, PTT, CKMB, BMP, CK, BNP, PT, HS TROP #### [facility] [address] [place] [address] Troponin I High Sensitivityo n 02-12-2021 Troponin I High Sensitivity 5 pg/mL Normal 0-15 [facility] Comment on above: Result Comment: PERF ORMED BY: [place] [address] PATHOLOGIST LINUX SUPPORT ENGINEER NICANOR BALTAZAR M.D. Performed By: #### C BC, PTT, CKMB, BMP, CK, BNP, PT, HS TROP #### [facility] [address] [place] [address] XR chest 2V*on 02-12-2021 XR chest 2V* [facility] [address] [place] [address] XRay Report Signed Patient: Alyssa Antoine MR#: [id number] : 1965 Acct:[id number] Age/Sex: 55 / F ADM Date: 02/11/21 Loc: ER Room: Type: [facility] ER Attending Dr: Ordering Provider: Stefan [...] Reid Graves M.D.02/12/2021 9:18 AM Dictation Location: [address] [address] Transcribed By: [facility] 02/12/21917 Dictated By: Reid Graves DO 02/12/21914 Signed By: 02/12/21917 [facility] ECG 12 lead ECGon 02-11-2021 ECG 12 lead ECG [facility] [address] [place] [address] Electrocardiograph Report Signed Patient: Alyssa Antoine MR#: [id number] : 1965 Acct:[id number] Age/Sex: 55 / F ADM Date: 02/11/21 Loc: ER Room: Type: [facility] ER Attending Dr: Ordering Provider: Stefan Carolina [...] ECGs available Confirmed by Stefan Carolina DO ([id number]) on 02/11/2021 11:41:46 PM Referred By: Electronically Signed By:Stefan Carolina DO Transcribed By: MUS Signed By Stefan Carolina DO 02/11 2341 Normal [facility] Vital Signs Date Time Vital Sign Value Performing Clinician Facility 03-02-2024 12:29-0500 Body temperature 98.24 [degF] VAISHNAVI NIKI [facility] 03-02-2024 12:29-0500 Diastolic blood pressure 92 mm[Hg] VAISHNAVI NIKI [facility] 03-02-2024 12:29-0500 Heart rate 97 /min VAISHNAVI NIKI [facility] 03-02-2024 12:29-0500 Respiratory rate 16 /min VAISHNAVI NIKI [facility] 03-02-2024 12:29-0500 Systolic blood pressure 132 mm[Hg] VAISHNAVI NIKI [facility] 05-26-2022 08:49-0500 Blood Pressure Location Hoda MURPHY [facility] 05-26-2022 08:49-0500 Diastolic blood pressure 74 mm[Hg] Hodaallison MURPHY [facility] 05-26-2022 08:49-0500 Heart rate 70 /min Hodaallison MURPHY [facility] 05-26-2022 08:49-0500 Respiratory rate 16 /min Hoda MURPHY [facility] 05-26-2022 08:49-0500 Systolic blood pressure 128 mm[Hg] Hoda MURPHY [facility] Encounters Encounter Date Encounter Type Care Provider Facility Start: 03-02-2024 End: 03-02-2024 Lab Drop off VAISHNAVI BLACK [facility] Start: 03-02-2024 End: 03-02-2024 ambulatory VAISHNAVI BLACK [place] Start: 03-02-2024 End: 03-02-2024 Patient encounter procedure VAISHNAVI BLACK [facility] Start: 01-14-2024 End: 01-14-2024 ambulatory LUCIO MIXON Facility:[facility] Start: 01-14-2024 End: 01-14-2024 Patient encounter procedure Lucio Mixon MD Work Phone: Orthopaedic Surgery [facility] Comment on above: Primary osteoarthrit is of first carpometacarpal joint of left hand (Primary Dx) Start: 12-29-2023 End: 12-29-2023 ambulatory Allen Noriega [place] Start: 12-29-2023 End: 12-29-2023 Patient encounter procedure Allen Noriega [facility] Start: 12-24-2023 End: 12-24-2023 ambulatory Allen Noriega Facility[place] Start: 12-24-2023 End: 12-24-2023 Lab Drop off Allen Noriega [facility] Start: 09-29-2023 Telephone encounter Ines Arora MD Work Phone: Neurology Comment on above: EMG- FAXED RESULTS Start: 09-29-2023 End: 09-29-2023 ambulatory INES ARORA Neurology [facility] Start: 09-29-2023 End: 09-29-2023 Patient encounter procedure [facility]g 2 Neur [facility] (Max Weight 400) Neurology [facility] Start: 08-28-2023 Telephone encounter Ines Arora MD Work Phone: Neurology Comment on above: EMG Instructions Start: 08-25-2023 Orders Only Laine pimentel CNP Work Phone: Neurology Comment on above: Sprain of left wrist , sequela (Primary Dx); Carpal tunnel syndrome of left wrist Start: 08-20-2023 Telephone encounter Lucio prasad MD Work Phone: Orthopaedic Surgery [facility] Start: 08-13-2023 End: 08-13-2023 Patient encounter procedure Lucio Mixon MD Work Phone: Orthopaedic [facility] Comment on above: Numbness and tinglin g in left hand (Primary Dx) Start: 08-13-2023 End: 08-13-2023 ambulatory LUCIO MIXON Facility:[facility] Start: 08-13-2023 End: 08-13-2023 Subsequent hospital visit by physician Xr [facility] h 1 Xray [facility] Comment on above: Pain [R52] Start: 07-31-2023 Orders Only Lucio Mixon MD Work Phone: Referring Physician Comment on above: Pain (Primary Dx) Start: 07-06-2023 End: 07-06-2023 ambulatory Hoda MURPHY Facility:[facility] Start: 07-06-2023 End: 07-06-2023 Patient encounter procedure Hoda MURPHY [facility] Start: 06-30-[address] [facility] Start: 04-22-[address] [facility] Start: 02-10-[address] [facility] Start: 11-26-2022 [facility] Start: 10-15-2022 End: 10-15-[address] [facility] Start: 10-01-2022 End: 10-01-[address] [facility] Start: 08-15-2022 Encounter for genera l adult medical examination without abnormal findings DR SHAI GARY . [facility] Start: 08-14-2022 End: 08-15-[address] SHAI GARY . Facility:[facility] Start: 08-14-2022 End: 08-15-2022 Encounter for general adult medical examination without abnormal findings DR SHAI GARY . Facility:[facility] Start: 08-12-2022 End: 08-13-[address] HODA MURPHY . Facility:[facility] Start: 05-26-2022 End: 05-26-2022 Patient encounter procedure Hoda MURPHY [facility] Start: 05-22-2022 End: 05-23-[address] HODA MURPHY . Facility:[facility] Start: 11-15-2021 End: 11-15-[address] SHAI GARY . Facility:[facility] Start: 11-12-2021 End: 11-12-[address] SHAI GARY . Facility:[facility] Start: 07-02-2021 End: 07-02-2021 Lab Drop off VAISHNAVI BLACK [facility] Start: 07-02-2021 End: 07-02-2021 Patient encounter procedure Toni Carrera Jr. [facility] Procedures Date Procedure Procedure Detail Performing Clinician Start: 09-29-2023 Nerve conduction mary ann dies 5-6 studies Ines Arora MD Work Phone: Start: 08-13-2023 Radex wrist [...] 12-06-2023 Covid-19 Vaccine ( season) Covid-19 Vaccine ( season) [facility] Start: 12-06-2023 Covid-19 Vaccine ( season) Covid-19 Vaccine ( season) [facility] Start: 12-06-2023 Influenza vaccination C [facility] Start: 09-29-2023 End: 09-29-2023 ambulatory 09/29/2023 9:25 AM EDT Procedure Neurology EM[facility] [address] [place] [address] EMG STANDARD Neurology EMG [facility] Comment on above: EMG STANDARD Start: 08-13-2023 End: 08-13-2023 Patient encounter procedure Gala [facility] Comment on above: sprain of left wrist , alin is coming in for seccond opinion, had carple tunnel surgery on this wrist october 02, 2022 Start: 04-06-2023 Behavioral Health Screening Behavioral Health Screening [facility] Start: 12-05-2022 Covid-19 Vaccine () Covid-19 Vaccine () [facility] Start: 12-05-2022 Covid-19 Vaccine () Covid-19 Vaccine () [facility] Start: 06-09-2015 Shingrix Vaccine (1 of 2) Shingrix Vaccine (1 of 2) [facility] Start: 2010 Diabetes Screening Diabetes Screenin g [facility] Start: 2010 Lipid panel Lipid Screening [facility] Start: 2010 Screening for malign ant neoplasm of colon [facility] Start: 2005 Screening for malign ant neoplasm of breast Mammogram Screening [facility] Start: 06-09-1995 Screening for malign ant neoplasm of cervix HPV Testing [facility] Start: 1986 Screening for malign ant neoplasm of cervix [facility] Start: 1984 Hepatitis B Vaccine (1 of 3 - 19+ 3-dose series) Hepatitis B Vaccine (1 of 3 - 19+ 3-dose series) [facility] Start: 1984 Urine microalbumin profile DTaP,Tdap,Td Vaccine (1 - Tdap) [facility] Start: 06-09-1983 Anxiety Screening Anxiety Screening [facility] Start: 06-09-1983 Depression Screening Depression Scre ening [facility] Start: 06-09-1983 Hepatitis C screening Hepatitis C Sc reening [facility] Start: 06-09-1983 HIV screening HIV Screening [facility] End: 08-24-2024 EMG(NEURO/NI) EMG(NEURO/NI) EMG Routine Sprain of left wrist, sequela Carpal tunnel syndrome of left wrist 1 Occurrences starting 08/25/2023 until 08/24/2024 [facility] Work Phone: Comment on above: 1 Occurrences starti ng 08/25/2023 until 08/24/2024 End: 08-29-2024 XR Wrist - left 4 Views XR WRIST INJURY 4V PA/LAT/OBL/SCAPH LEFT Radiology Routine Pain 1 Occurrences starting 07/31/2023 until 08/29/2024 [facility] Comment on above: 1 Occurrences starti ng 07/31/2023 until 08/29/2024 End: 08-29-2024 XR Wrist - left PA and Lateral and Oblique XR WRIST GENERAL 3V PA/LAT/OBL LEFT Radiology Routine Pain 1 Occurrences starting 07/31/2023 until 08/29/2024 [facility] Work Phone: Comment on above: 1 Occurrences starti ng 07/31/2023 until 08/29/2024 Immunizations Immunization Date Immunization Notes Care Provider Mihai bradshaw 02-26-2022 influenza virus vaccine, unspecified formulation Lucio Mixon MD Work Phone: [facility] 08-08-2020 SARS-CoV-2 (COVID-19 ) Ad26 vaccine, recombinant Toni Carrera Jr. [facility] 07-18-2020 SARS-CoV-2 (COVID-19 ) Ad26 vaccine, recombinant Toni Carrera Jr. [facility] Payers Date Payer Category Payer Private Health Insurance [facility] CHO[facility] PLUS [id number] 2023-Present [phone] [address] [address] [place] [address] PPO [id number] 2019 Unknown [id number] 2019 Unknown [id number] 2019 Unknown [id number] 1965 Unknown [id number] 2.16.840.1.027320.3.579 .2.593 1965 Unknown [id number] 2.16.840.1.003987.3.579 .2.593 1965 Unknown [id number] 2.16.840.1.520488.3.579 .2.593 1965 Unknown [id number] 2.16.840.1.796133.3.579 .2.593 1965 Unknown [id number] 2.16.840.1.315047.3.579 .2.593 1965 Unknown [id number] 2.16.840.1.875106.3.579 .2.593 1965 Unknown [id number] 2.16.840.1.393464.3.579 .2.727 1965 Unknown [id number] 2.16.840.1.270016.3.579 .2.727 1965 Unknown [id number] 2.16.840.1.646363.3.579 .2.727 1965 Unknown [id number] 2.16.840.1.305456.3.579 .2.727 1965 Unknown [id number] 2.16.840.1.020863.3.579 .2.727 1959 Unknown [id number] Social History Date Type Detail Facility Start: 05-13-2021 End: 03-02-2024 Tobacco smoking status Never smoked tobacco (finding) [facility] Start: 08-13-2023 End: 01-14-2024 Sex Assigned At Female [facility] Start: 07-28-2014 End: 01-14-2024 Alcohol intake Current drinker of alcohol (finding) [facility] Start: 1965 Sex Assigned At Not on file [facility] Start: 08-13-2023 End: 01-14-2024 History of Social function [facility] National Score (1-10 0), lower number is lower risk 46 [facility] [place] Functional Status Date Assessment Result Facility 03-02-2024 Functional Status N/A [facility] 05-26-2022 Functional Status N/A [facility] [place] Clinical Notes 05-26-2022 to 03-02-2024 Lucio Mixon MD - 01/14/2024 12:53 PM EDTTelephone Encounter - Campos Neema - 09/29/2023 2:14 PM EDTTelephone Encounter - Rich Camposeen - 09/29/2023 2:14 PM EDTRadiology Note Date & Type Note Facility 03-02-2024 Hospital Discharge instructions Patient Education 03/02/2024 13:27:47 Urinary Tract Infection, Adult Urinary Tract Infection, Adult A urinary tract infection (UTI) is an infection of any part of the urinary tract. The urinary tract includes the kidneys, ureters, bladder, and urethra. These organs make, store, and get rid of urine in the body. An upper UTI affects the ureters and kidneys. A lower UTI affects the bladder and urethra. What are the causes? Most urinary tract infections are caused by bacteria in your genital area around your urethra, where urine leaves your body. These bacteria grow and cause inflammation of your urinary tract. What increases the risk? You are more likely to develop this condition if: You have a urinary catheter that stays in place. You are not able to control when you urinate or have a bowel movement (incontinence). You are female and you: ?Use a spermicide or diaphragm for control. ?Have low estrogen levels. ?Are . You have certain genes that increase your risk. You are sexually active. You take antibiotic medicines. You have a condition that causes your flow of urine to slow down, such as: ?An enlarged prostate, if you are male. ?Blockage in your urethra. ?A kidney stone. ?A nerve condition that affects your bladder control (neurogenic bladder). ?Not getting enough to drink, or not urinating often. You have certain medical conditions, such as: ?Diabetes. ?A weak disease-fighting system (immunesystem). ?Sickle cell disease. ?Gout. ?Spinal cord injury. What are the signs or symptoms? Symptoms of this condition include: Needing to urinate right away (urgency). Frequent urination. This may include small amounts of urine each time you urinate. Pain or burning with urination. Blood in the urine. Urine that smells bad or unusual. Trouble urinating. Cloudy urine. Vaginal discharge, if you are female. Pain in the abdomen or the lower back. You may also have: Vomiting or a decreased appetite. Confusion. Irritability or tiredness. A fever or chills. Diarrhea. The first symptom in older adults may be confusion. In some cases, they may not have any symptoms until the infection has worsened. How is this diagnosed? This condition is diagnosed based on your medical history and a physical exam. You may also have other tests, including: Urine tests. Blood tests. Tests for STIs (sexually transmitted infections). If you have had more than one UTI, a cystoscopy or imaging studies may be done to determine the cause of the infections. How is this treated? Treatment for this condition includes: Antibiotic medicine. Bqoc-yvk-embnnvt medicines to treat discomfort. Drinking enough water to stay hydrated. If you have frequent infections or have other conditions such as a kidney stone, you may need to see a health care provider who specializes in the urinary tract (urologist). In rare cases, urinary tract infections can cause sepsis. Sepsis is a life-threatening condition that occurs when the body responds to an infection. Sepsis is treated in the hospital with IV antibiotics, fluids, and other medicines. Follow these instructions at home: Medicines Take mift-lbh-zmdwxze and prescription medicines only as told by your health care provider. If you were prescribed an antibiotic medicine, take it as told by your health care provider. Do not stop using the antibiotic even if you start to feel better. General instructions Make sure you: ?Empty your bladder often and completely. Do not hold urine for long periods of time. ?Empty your bladder after sex. ?Wipe from front to back after urinating or having a bowel movement if you are female. Use each tissue only one time when you wipe. Drink enough fluid to keep your urine pale yellow. Keep all follow-up visits. This is important. Contact a health care provider if: Your symptoms do not get better after 1 2 days. Your symptoms go away and then return. Get help right away if: You have severe pain in your back or your lower abdomen. You have a fever or chills. You have nausea or vomiting. Summary A urinary tract infection (UTI) is an infection of any part of the urinary tract, which includes the kidneys, ureters, bladder, and urethra. Most urinary tract infections are caused by bacteria in your genital area. Treatment for this condition often includes antibiotic medicines. If you were prescribed an antibiotic medicine, take it as told by your health care provider. Do not stop using the antibiotic even if you start to feel better. Keep all follow-up visits. This is important. This information is not intended to replace advice given to you by your health care provider. Make sure you discuss any questions you have with your health care provider. Document Revised: 10/28/2020 Document Reviewed: 11/02/2020 [employer] Patient Education 2023 Coupay. 03/02/2024 13:27:43 Kidney Stones, Ubar-ms-Qhge Kidney Stones Kidney stones are rock-like masses that form inside of the kidneys. Kidneys are organs that make pee (urine). A kidney stone may move into other parts of the urinary tract, including: The tubes that connect the kidneys to the bladder (ureters). The bladder. The tube that carries urine out of the body (urethra). Kidney stones can cause very bad pain and can block the flow of pee. The stone usually leaves your body through your pee. A doctor may need to take out the stone. What are the causes? Kidney stones may be caused by: Too much calcium in the body. This may be caused by too much parathyroid hormone in the blood. Uric acid crystals in the bladder. The body makes uric acid when you eat certain foods. Narrowing of one or both of the ureters. A kidney blockage that you were born with. Past surgery on the kidney or the ureters. What increases the risk? You are more likely to develop this condition if: You have had a kidney stone in the past. Other people in your family have had kidney stones. You do not drink enough water. You eat a diet that is high in protein, salt (sodium), or sugar. You are very overweight (obese). What are the signs or symptoms? Symptoms of a kidney stone may include: Pain in the side of the belly, right below the ribs. Pain usually spreads to the groin. Needing to pee often or right away. Pain when peeing. Blood in your pee. Feeling like you may vomit (nauseous). Vomiting. Fever and chills. How is this treated? Treatment depends on the size, location, and makeup of the kidney stones. The stones will often pass out of the body when you pee. You may need to: Drink more fluid to help pass the stone. ?In some cases, you may be given fluids through an IV tube at the hospital. Take medicine for pain. Change your diet to help keep kidney stones from coming back. Sometimes, you may need: A procedure to break up kidney stones using a beam of light (laser) or shock waves. Surgery to remove the kidney stones. Follow these instructions at home: Medicines Take uhdi-aid-daunjtt and prescription medicines only as told by your doctor. Ask your doctor if the medicine prescribed to you requires you to avoid driving or using machinery. Eating and drinking Drink enough fluid to keep your pee pale yellow. ?You may be told to drink at least 8 10 glasses of water each day. This will help you pass the stone. If told by your doctor, change your diet. You may be told to: ?Limit how much salt you eat. ?Eat more fruits and vegetables. ?Limit how much meat, poultry, fish, and eggs you eat. Follow instructions from your doctor about what you may eat and drink. General instructions Collect pee samples as told by your doctor. You may need to collect a pee sample: ?24 hours after a stone comes out. ?8 12 weeks after a stone comes out, and every 6 12 months after that. Strain your pee every time you pee. Use the strainer that your doctor recommends. Do not throw out the stone. Keep it so that it can be tested by your doctor. Keep all follow-up visits. You may need X-rays and ultrasounds to make sure the stone has come out. How is this prevented? To prevent another kidney stone: Drink enough fluid to keep your pee pale yellow. This is the best way to prevent kidney stones. Eat healthy foods. Avoid certain foods as told by your doctor. You may be told to eat less protein. Stay at a healthy weight. Where to find more information National Kidney Foundation (NKF): kidney.org Urology Care Foundation (UCF): urologyhealth.org Contact a doctor if: You have pain that gets worse or does not get better with medicine. Get help right away if: You have a fever or chills. You get very bad pain. You get new pain in your belly. You faint. You cannot pee. This information is not intended to replace advice given to you by your health care provider. Make sure you discuss any questions you have with your health care provider. Document Revised: 11/14/2022 Document Reviewed: 11/14/2022 [employer] Patient Education 2023 Coupay. Follow Up Care 03/01/2024 08:54:22 With:NIKI SPEARS, VAISHNAVI Navas, URL Address: [address] [place] [address] When: Unknown [facility] 03-02-2024 Evaluation + Plan note Diagnostic Tests PendingUrine Culture 03/02/24 [facility] 03-02-2024 Note Patient Education Obstetrics and Gynecology Urinary Tract Infection, Adult A urinary tract infection (UTI) is an infection of any part of the urinary tract. The urinary tract includes the kidneys, ureters, bladder, and urethra. These organs make, store, and get rid of urine in the body. An upper UTI affects the ureters and kidneys. A lower UTI affects the bladder and urethra. What are the causes? Most urinary tract infections are caused by bacteria in your genital area around your urethra, where urine leaves your body. These bacteria grow and cause inflammation of your urinary tract. What increases the risk? You are more likely to develop this condition if: ??? You have a urinary catheter that stays in place. ??? You are not able to control when you urinate or have a bowel movement (incontinence). ??? You are female and you: ? Use a spermicide or diaphragm for control. ? Have low estrogen levels. ? Are . ??? You have certain genes that increase your risk. ??? You are sexually active. ??? You take antibiotic medicines. ??? You have a condition that causes your flow of urine to slow down, such as: ? An enlarged prostate, if you are male. ? Blockage in your urethra. ? A kidney stone. ? A nerve condition that affects your bladder control (neurogenic bladder). ? Not getting enough to drink, or not urinating often. ??? You have certain medical conditions, such as: ? Diabetes. ? A weak disease-fighting system (immunesystem). ? Sickle cell disease. ? Gout. ? Spinal cord injury. What are the signs or symptoms? Symptoms of this condition include: ??? Needing to urinate right away (urgency). ??? Frequent urination. This may include small amounts of urine each time you urinate. ??? Pain or burning with urination. ??? Blood in the urine. ??? Urine that smells bad or unusual. ??? Trouble urinating. ??? Cloudy urine. ??? Vaginal discharge, if you are female. ??? Pain in the abdomen or the lower back. You may also have: ??? Vomiting or a decreased appetite. ??? Confusion. ??? Irritability or tiredness. ??? A fever or chills. ??? Diarrhea. The first symptom in older adults may be confusion. In some cases, they may not have any symptoms until the infection has worsened. How is this diagnosed? This condition is diagnosed based on your medical history and a physical exam. You may also have other tests, including: ??? Urine tests. ??? Blood tests. ??? Tests for STIs (sexually transmitted infections). If you have had more than one UTI, a cystoscopy or imaging studies may be done to determine the cause of the infections. How is this treated? Treatment for this condition includes: ??? Antibiotic medicine. ??? Mqdb-cdk-ycedwaf medicines to treat discomfort. ??? Drinking enough water to stay hydrated. If you have frequent infections or have other conditions such as a kidney stone, you may need to see a health care provider who specializes in the urinary tract (urologist). In rare cases, urinary tract infections can cause sepsis. Sepsis is a life-threatening condition that occurs when the body responds to an infection. Sepsis is treated in the hospital with IV antibiotics, fluids, and other medicines. Follow these instructions at home: Medicines ??? Take yjej-msa-dauenwx and prescription medicines only as told by your health care provider. ??? If you were prescribed an antibiotic medicine, take it as told by your health care provider. Do not stop using the antibiotic even if you start to feel better. General instructions ??? Make sure you: ? Empty your bladder often and completely. Do not hold urine for long periods of time. ? Empty your bladder after sex. ? Wipe from front to back after urinating or having a bowel movement if you are female. Use each tissue only one time when you wipe. ??? Drink enough fluid to keep your urine pale yellow. ??? Keep all follow-up visits. This is important. Contact a health care provider if: ??? Your symptoms do not get better after 1?2 days. ??? Your symptoms go away and then return. Get help right away if: ??? You have severe pain in your back or your lower abdomen. ??? You have a fever or chills. ??? You have nausea or vomiting. Summary ??? A urinary tract infection (UTI) is an infection of any part of the urinary tract, which includes the kidneys, ureters, bladder, and urethra. ??? Most urinary tract infections are caused by bacteria in your genital area. ??? Treatment for this condition often includes antibiotic medicines. ??? If you were prescribed an antibiotic medicine, take it as told by your health care provider. Do not stop using the antibiotic even if you start to feel better. ??? Keep all follow-up visits. This is important. This information is not intended to replace advice given to you by your health care provider. Make sure you di (more content not included)... [facility] 01-14-2024 Note HNO ID: [id number] Author: LUCIO MIXON MD Service: ? Author Type: Physician Type: Progress Notes Filed: 02/09/2024 08:08 Note Text: Lucio Mixon MD Department of Orthopaedics Orthopaedic Surgery [facility] [address] [address] [facility] [address] Dept: [phone] Dept January 14, 2024 CHIEF COMPLAINT: Pain [...] before without relief. 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 ASSESSMENT: M18.12 Primary osteoarthritis of first carpometacarpal joint of left hand (primary encounter diagnosis) PLAN: She primarily has OA of the thumb joint. She has a normal nerve test (dated 09/29/2023) after her surgery last September. She may need her cervical spine investigated. As I cannot correlate her symptoms to carpal tunnel again. OBJECTIVE: Ms. Alyssa Antoine is a pleasant 58 year old in [...] studies of the median nerve and normal eabvfm-iq-krunz comparative studies. - No electrodiagnostic evidence of [...] ONE DAILY MULTIVITAMIN ORAL Take by mouth. [place]-3 Fatty Acids-Vitamin E (FISH OIL) 1,000 mg [...] Psych (no depression, anxiety) Lucio Mixon MD [facility] 01-14-2024 History of Present illness Narrative Lucio Mixon MD Department of Orthopaedics Orthopaedic Surgery [facility] [address] [address] [facility] [address] Dept: [phone] Dept January 14, 2024 CHIEF COMPLAINT: Pain [...] before without relief. 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 ASSESSMENT: M18.12 Primary osteoarthritis of first carpometacarpal joint of left hand (primary encounter diagnosis) PLAN: She primarily has OA of the thumb joint. She has a normal nerve test (dated 09/29/2023) after her surgery last September. She may need her cervical spine investigated. As I cannot correlate her symptoms to carpal tunnel again. OBJECTIVE: Ms. Alyssa Antoine is a pleasant 58 year old in [...] studies of the median nerve and normal xpcmgd-ez-xqboc comparative studies. - No electrodiagnostic evidence of [...] ONE DAILY MULTIVITAMIN ORAL Take by mouth. [place]-3 Fatty Acids-Vitamin E (FISH OIL) 1,000 mg [...] Lucio Mixon MD documented in this encounter [facility] 09-29-2023 Telephone encounter Note Results from EMG performed on 09/29/2023 were faxed to Laine Granger at fax number on 09/29/2023. Fax confirmation received. [facility] 09-29-2023 Miscellaneous Notes Results from EMG performed on 09/29/2023 were faxed to Laine Granger at fax number on 09/29/2023. Fax confirmation received. documented in this encounter [facility] 09-29-2023 History of Present illness Narrative [...] Tech Ramsey Ndiaye MD Neuromuscular Medicine (NM) [place], [facility] documented in this encounter [facility] 09-29-2023 Note HNO ID: [id number] Author: RAMSEY NDIAYE MD Service: ? Author [...] Tech Ramsey Ndiaye MD Neuromuscular Medicine (NM) [facility] 08-28-2023 Telephone encounter Note Spoke with Alyssa Antoine on 08/27 in regards to getting scheduled for their EMG appointment. Patient indicated that they are taking the medication Eliquis. Instructed that this medication is to be held for 24 hours prior to testing. Patient is to reach out to prescribing physician to ensure that it is safe to hold prior to testing. Patient expressed understanding with these instructions. [facility] 08-28-2023 Miscellaneous Notes Spoke with Alyssa Antoine on 08/27 in regards to getting scheduled for their EMG appointment. Patient indicated that they are taking the medication Eliquis. Instructed that this medication is to be held for 24 hours prior to testing. Patient is to reach out to prescribing physician to ensure that it is safe to hold prior to testing. Patient expressed understanding with these instructions. documented in this encounter [facility] 08-24-[address] Mixon's note still not completed, I did call Nayeli at [employer]. We did discuss that the patient needs to find their old nerve conduction study and get a new nerve conduction study (Study can be request by POR) and then should follow-up with Dr. Mixon to discuss both. [facility] Work Phone: 08-24-[address] Mixon's note still not completed, I did call Nayeli at [email or web address]. We did discuss that the patient needs to find their old nerve conduction study and get a new nerve conduction study (Study can be request by POR) and then should follow-up with Dr. Mixon to discuss both. Name of Caller: Nayeli at [employer] Relationship to patient: Last visit in this department: 08/13/2023 Reason for Call: Other : Nayeli calling from [facility] to get office notes and any test results if applicable for the 08/13/23 visit. Please fax to [phone] Callback number: [phone] Fax Number (if necessary): [phone] Additional info if needed (Prior Auth #, Claim #, etc ): N/A Karly Leija documented in this encounter [facility] 08-20-2023 Telephone encounter Note Name of Caller: Nayeli at [employer] Relationship to patient: Last visit in this department: 08/13/2023 Reason for Call: Other : Nayeli calling from Occup[facility] to get office notes and any test results if applicable for the 08/13/23 visit. Please fax to [phone] Callback number: [phone] Fax Number (if necessary): [phone] Additional info if needed (Prior Auth #, Claim #, etc ): N/A Karly Leija [facility] 08-13-2023 Note HNO ID: [id number] Author: LUCIO MIXON MD Service: ? Author Type: Physician Type: Progress Notes Filed: 09/08/2023 16:53 Note Text: Lucio Mixon MD Department of Orthopaedics Orthopaedic Surgery [facility] [address] [facility] [address] Dept: [phone] Dept August 13, 2023 CHIEF COMPLAINT: New [...] her origional EMG test. SHe'll have her [facility] get an c9 for a new nerve test. She'll share both of those with me and then we'll develop a game plan. FOLLOW UP INSTRUCTIONS: She either has recurrent CTS, which is not common, but possible. It is also possible to be of a different etiology with cervical involvement, or other. OBJECTIVE: Ms. Alyssa Antoine is a pleasant 58 year old in [...] ONE DAILY MULTIVITAMIN ORAL Take by mouth. [place]-3 Fatty Acids-Vitamin E (FISH OIL) 1,000 mg [...] Laine Granger CNP [address] [facility] [address] Lucio Mixon MD [facility] 08-13-2023 History of Present illness Narrative Lucio Mixon MD Department of Orthopaedics Orthopaedic Surgery [facility] [address] [facility] [address] Dept: [phone] Dept August 13, 2023 CHIEF COMPLAINT: New [...] her origional EMG test. SHe'll have her [facility] get an c9 for a new nerve test. She'll share both of those with me and then we'll develop a game plan. FOLLOW UP INSTRUCTIONS: She either has recurrent CTS, which is not common, but possible. It is also possible to be of a different etiology with cervical involvement, or other. OBJECTIVE: Ms. Alyssa Antoine is a pleasant 58 year old in [...] ONE DAILY MULTIVITAMIN ORAL Take by mouth. [place]-3 Fatty Acids-Vitamin E (FISH OIL) 1,000 mg [...] requesting physician via [place] mail. Laine Granger, [employer] [address] [address] Lucio Mixon MD documented in this encounter [facility] 08-13-2023 History of Present illness Narrative Radiology Service Progress Note PATIENT NAME: Alyssa Antoine DATE OF SERVICE: August 13, 2023 TIME: [...] PATIENT PRESENTS WITH AN IMPLANTABLE OR ATTACHED MEDICAL PRACTICE ADMINISTRATOR: No RADIOLOGY DEPARTMENT: General X-ray: Exam(s) Completed: Upper Extremity X-Ray(s): Wrist, left PERIPHERAL IV DATA: Not applicable SIGNED BY: RT Brian(Gabriel) August 13, 2023 9:24 AM documented in this encounter [facility] 08-13-2023 Note HNO ID: [id number] Author: CONSTANCE VERMA RT(Gabriel) Service: ? Author Type: Technologist Type: Progress Notes Filed: 08/13/2023 09:25 Note Text: Radiology Service Progress Note PATIENT NAME: Alyssa Antoine DATE OF SERVICE: August 13, 2023 TIME: [...] PATIENT PRESENTS WITH AN IMPLANTABLE OR ATTACHED MEDICAL PRACTICE ADMINISTRATOR: No RADIOLOGY DEPARTMENT: General X-ray: Exam(s) Completed: Upper Extremity X-Ray(s): Wrist, left PERIPHERAL IV DATA: Not applicable SIGNED BY: RT Brian(R) August 13, 2023 9:24 AM [facility] 04-22-2023 Note Patient ID: Alyssa Antoine is a 57 y.o. female. Steroid Injections [...] to verify the correct patient, procedure, equipment, print support specialist and site/side marked as required. [facility] 02-10-2023 Note Orthopedic Surgery Subjective 10/01/2022 [...] disease) Kidney stone Migraines Objective Left Hand: Rbpmfuqqis-jpot-hymhsa scar from carpal tunnel incision. Thumb: normal A1 winnie and AROM, Index finger: normal A1 winnie and AROM, Long finger: normal A1 winnie and AROM, Ring finger: normal A1 winnie and AROM, and Small finger: normal A1 winnie and AROM Strength: retail parts pro 4+/5, thumb 4+/5, interossei 5/5 Sensation: intact over radial and ulnar nerve distributions. Tinel (+) at carpal tunnel Carpal compression test (+) Tinel (+) at cubital tunnel. Positive left CMC grind test Cardiovascular: Well-perfused digits Assessment/Plan Alyssa Antoine is a 57 y.o. year old female [...] and see her back at that time. [facility] 11-26-2022 Note Attestation signed by Max [...] disease) Kidney stone Migraines Objective Left Hand: Kcmdkgskdy-mvjr-ejshzu scar from carpal tunnel incision. Thumb: normal A1 winnie and AROM, Index finger: normal A1 winnie and AROM, Long finger: normal A1 winnie and AROM, Ring finger: normal A1 winnie and AROM, and Small finger: normal A1 winnie and AROM Strength: retail parts pro 5/5, thumb 5/5, interossei 5/5 Sensation: intact over radial nerve distributions. Diminished sensation to light touch in ulnar nerve median distributions. Tinel (+) at carpal tunnel Carpal compression test (+) Tinel (+) at cubital tunnel Cardiovascular: Well-perfused digits Assessment/Plan Alyssa Antoine is a 57 y.o. year old female [...] SHERIFF MD Orthopedic Surgery, PGY-2 Ortho Pager [phone] 11/26/22 3:14 PM [facility] 10-15-2022 Note Attestation signed by Max [...] distally - Brisk capillary refill Assessment/Plan Alyssa Antoine is a 57 y.o. year old female s/p Carpal Tunnel Release - Left (10/01/2022) -Scar massage and lotion -C9 for Carpal tunnel syndrome of L hand s/p CTR -RTC in 6 weeks or as needed GIGI SHERIFF MD Orthopedic Surgery, PGY-2 Ortho Pager [phone] 10/15/22 1:20 PM [facility] 10-01-2022 Note Patient: Guillermina curry Procedure Summary Date: 10/01/22 Room / Location: [facility] OR [address] [place] [address] GISC OR Anesthesia Start: 833 Anesthesia Stop: 899 [...] 0900 Pulse 43 10/01/22 0930 Resp 16 06/28/23 0930 SpO2 97 % 10/01/22929 Anesthesia Post Evaluation Patient location during evaluation: PACU Patient participation: complete - patient participated Level of consciousness: awake and alert Pain score: 0 Pain management: adequate Airway patency: patent Cardiovascular status: acceptable Respiratory status: acceptable Hydration status: acceptable Patient is hemodynamically stable and is able to be discharged from PACU per anesthesia protocol. No notable events documented. [facility] 10-01-2022 Note Patient: Guillermina curry Procedure Information Date/Time: 10/01/22829 Procedure: CARPAL TUNNEL RELEASE (Left: Hand) Location: [facility] OR [address] [place] [address] OR Surgeons: Max Kowalski MD Relevant Problems [...] Plan discussed with attending. Additional Equipment Requests [facility] 05-26-2022 Hospital Discharge instructions Follow Up Care 05/26/2022 09:33:22 With:JEFFREY AVELAR, Hoda Rios, URL Address: [facility] [address] [place] [address]- [phone] When: Unknown [facility] 05-26-2022 Hospital Discharge instructions Patient Education [...] include: ?Spinach. ?Rhubarb. ?Beets. ?Potato chips and bengali fries. ?Nuts. If you regularly take a diuretic medicine, make sure to eat at least 1 2 fruits or vegetables high in potassium each day. These include: ?Avocado. ?Banana. ?[place], prune, carrot, or tomato juice. ?Baked potato. [...] Casseroles. Pizza. Lasagna. Frozen meals. Potato chips. Mohawk fries. Summary You can reduce your risk [...] 07/18/2011 Document Revised: 07/13/2019 Document Reviewed: 03/03/2017 [employer] Patient Education 2020 [employer]. Follow Up Care 05/13/2021 09:33:00 With:Hoda MURPHY MD, URL Address: [facility] [address] [place] [address]- When: Unknown [facility] Evaluation + Plan note Future Appointments Appointment Date:05/26/2022 08:45:00 AM Scheduled Provider:Hoda MURPHY MD Location:[facility] Appointment Type:URO Office Visit [facility] Evaluation + Plan note Future Appointments Appointment Date:05/26/2022 08:45:00 AM Scheduled Provider:Hoda MURPHY MD Location:[facility] Appointment Type:URO Office Visit Diagnostic Tests PendingUrine Culture 07/02/21 [facility] Evaluation + Plan note Future Appointments Appointment Date:05/29/2023 08:00:00 AM Scheduled Provider:Hoda MURPHY MD Location:[facility] Appointment Type:URO Office Visit [facility] Evaluation + Plan note Future Appointments Appointment Date:12/30/2023 12:00:00 PM Scheduled Provider: Location:.[facility] Appointment Type:US Abdominal/Pelvis () Diagnostic Tests PendingReference Lab Notification 12/24/23 Future Scheduled TestsUS Pelvis Non-OB Complete 12/30/23US Transvaginal Non-OB 12/30/23 [facility] Evaluation note Diagnosis Pain- Primary Generalized pain [facility] Diagnosis Sprain of left wrist, sequela- Primary Carpal tunnel syndrome of left wrist Carpal tunnel syndrome [facility] Diagnosis Numbness and tingling in left hand- Primary Disturbance of skin sensation [facility] Diagnosis Sprain of left wrist, sequela Carpal tunnel syndrome of left wrist Carpal tunnel syndrome [facility] Pain Generalized pain [facility] Diagnosis Primary osteoarthritis of first carpometacarpal joint of left hand- Primary Primary localized osteoarthrosis, hand [facility] Narrative No data available for this section [facility] Hospital Discharge instructions No data available for this section [facility] progress note No data available for this section [facility] reason for referral (narrative)* Diagnostic Procedure Only (Routine) - Pending Review Specialty Diagnoses / Procedures Referred By Janessa harris Referred To Contact XR IMAGING Diagnoses Pain Procedures XR WRIST INJURY 4V PA/LAT/OBL/SCAPH LEFT RADEX WRIST COMPLETE MINIMUM 3 VIEWS Lucio Mixon MD [address] [place] [address] [place] [address] Referral ID Status Reason Start Date Expiration Date Visits Requested Visits Authorized [id number] Pending Review Auto-Generat ed Referral 07/31/2023 08/29/2024 1 1 * Diagnostic Procedure Only (Routine) - Authorized Specialty Diagnoses / Procedures Referred By Contac t Referred To Contact XR IMAGING Diagnoses Pain Procedures XR WRIST GENERAL 3V PA/LAT/OBL LEFT RADEX WRIST COMPLETE MINIMUM 3 VIEWS Lucio Mixon MD [address] [place] [address] [place] [address] Referral ID Status Reason Start Date Expiration Date Visits Requested Visits Authorized [id number] Authorized Auto-Generat ed Referral 07/31/2023 08/29/2024 1 1 [facility] Outpatient Procedure (Routine) - Pending Review Specialty Diagnoses / Procedures Referred By Contac t Referred To Contact [facility] Diagnoses Sprain of left wrist, sequela Carpal tunnel syndrome of left wrist Procedures [facility](NEURO/NI) NERVE CONDUCTION STUDIES 9-10 STUDIES Ines Arora MD [address] [place] [address] [facility] [address] [place] [address] Referral ID Status Reason Start Date Expiration Date Visits Requested Visits Authorized [id number] Pending Review Auto-Generat ed Referral 08/25/2023 08/24/2024 1 1 [facility] Summary Purpose Family History No Family [...] 3 VIEWS Lucio Mixon MD [address] [place] [address] [place] [address] Referral ID Status Reason Start Date Expiration Date V isits Requested Visits Authorized [id number] Closed Auto-Generat ed Referral Patient Cleared - Admin/Chairm an/Director advise to proceed or did not respond 08/13/2023 08/13/2023 1 1 Additional Source Comments INFORMATION SOURCE (unrecogn ized section and content) DATE CREATED AUTHOR 05/29/2021 [facility] DATE CREATED AUTHOR AUTHOR'S ORGANIZ ATION 08/21/2022 [facility] DATE CREATED AUTHOR AUTHOR'S ORGANIZ ATION 07/01/2023 [facility] DATE CREATED AUTHOR AUTHOR'S ORGANIZ ATION 12/31/2023 [facility] DATE CREATED AUTHOR AUTHOR'S ORGANIZ ATION 01/05/2024 [facility] DATE CREATED AUTHOR AUTHOR'S ORGANIZ ATION 02/10/2024 [facility] DATE CREATED AUTHOR AUTHOR'S ORGANIZ ATION 03/03/2024 [facility] DATE CREATED AUTHOR AUTHOR'S ORGANIZ ATION 03/06/2024 [facility] DATE CREATED AUTHOR AUTHOR'S ORGANIZ ATION 03/10/2024 [facility] Patient Care team informatio n (unrecognized section and content) [employer] Relationship Specialty Start Date End Date Laine Granger CNP [address] [id number] Family Medicine 07/24/23 [employer] Relationship Specialty Start Date End Date Laine Granger CNP [address] [place] [address] Referring Family Medicine 07/24/23 [employer] Relationship Specialty Start Date End Date Laine Granger LYLY [address] [place] [phone] Referring Family Medicine 07/24/23 [employer] Relationship Specialty Start Date End Date Laine Granger LYLY [address] [place] [address] Referring Family Medicine 07/24/23 [employer] Relationship Specialty Start Date End Date Laine Granger LYLY [address] [place] [address] Referring Family Medicine 07/24/23 [employer] Relationship Specialty Start Date End Date Laine Granger LYLY [address] [place] [address] Referring Family Medicine 07/24/23 [employer] Relationship Specialty Start Date End Date Laine Granger LYLY [address] [place] [phone] Referring Family Medicine 07/24/23 Source Comments (unrecognize d section and content) In the event this informatio n is protected by the Federal Confidentiality of Alcohol and Drug Abuse Patient Records regulations: The Federal rules restrict any use of the information to criminally investigate or prosecute any alcohol or drug abuse patient.[facility] the event this information is protected by the Federal Confidentiality of Alcohol and Drug Abuse Patient Records regulations: The Federal rules restrict any use of the information to criminally investigate or prosecute any alcohol or drug abuse patient.[facility] the event this information is protected by the Federal Confidentiality of Alcohol and Drug Abuse Patient Records regulations: The Federal rules restrict any use of the information to criminally investigate or prosecute any alcohol or drug abuse patient.[facility] the event this information is protected by the Federal Confidentiality of Alcohol and Drug Abuse Patient Records regulations: The Federal rules restrict any use of the information to criminally investigate or prosecute any alcohol or drug abuse patient.[facility] the event this information is protected by the Federal Confidentiality of Alcohol and Drug Abuse Patient Records regulations: The Federal rules restrict any use of the information to criminally investigate or prosecute any alcohol or drug abuse patient.[facility] the event this information is protected by the Federal Confidentiality of Alcohol and Drug Abuse Patient Records regulations: The Federal rules restrict any use of the information to criminally investigate or prosecute any alcohol or drug abuse patient.[facility] the event this information is protected by the Federal Confidentiality of Alcohol and Drug Abuse Patient Records regulations: The Federal rules restrict any use of the information to criminally investigate or prosecute any alcohol or drug abuse patient.[facility] the event this information is protected by the Federal Confidentiality of Alcohol and Drug Abuse Patient Records regulations: The Federal rules restrict any use of the information to criminally investigate or prosecute any alcohol or drug abuse patient.[facility] the event this information is protected by the Federal Confidentiality of Alcohol and Drug Abuse Patient Records regulations: The Federal rules restrict any use of the information to criminally investigate or prosecute any alcohol or drug abuse patient.[facility] Reason for Visit (unrecogniz ed section and content) Reason Comments EMG Instructions Reason Comments New Pain Specialty Diagnoses / Procedures Referred By Janessa harris Referred To Contact Orthopedics / ORTHOPAEDIC SURGERY Diagnoses sprain of left wrist, alin is coming in for seccond opinion, had carple tunnel surgery on this wrist october 02, 2022 Procedures [facility] Laine Granger, [employer] [address] [place] [address] Lucio Mixon MD [address] [place] [address] Referral ID Status Reason Start Date Expiration Date V isits Requested Visits Authorized [id number] Closed Patient Cleared - Admin/Chairm an/Director advise to proceed or did not respond 08/13/2023 08/13/2023 1 1 Specialty Diagnoses / Procedures Referred By Janessa harris Referred To Contact [facility] Diagnoses Sprain of left wrist, sequela Carpal tunnel syndrome of left wrist Procedures [facility](NEURO/NI) NERVE CONDUCTION STUDIES 9-10 STUDIES Ines Arora MD [address] [phone] [facility] [address] [phone] Referral ID Status Reason Start Date Expiration Date V isits Requested Visits Authorized [id number] Closed Auto-Generate d Referral 09/29/2023 10/29/2023 1 1 Reason Comments EMG- FAXED RESULTS Reason Comments Radio Gen RMP Specialty Diagnoses / Procedures Referred By Janessa harris Referred To Contact XR IMAGING Diagnoses Pain Procedures XR WRIST GENERAL 3V PA/LAT/OBL LEFT RADEX WRIST COMPLETE MINIMUM 3 VIEWS Lucio Mixon MD [address] [place] [address] [place] [address] Referral ID Status Reason Start Date Expiration Date V isits Requested Visits Authorized [id number] Closed Auto-Generat ed Referral Patient Cleared - [...] Lucio Mixon MD [address] [place] [address] [place] [address] Referral ID Status Reason Start Date Expiration Date V isits Requested Visits Authorized [id number] Closed Auto-Generate d Referral 01/07/2024 01/14/2024 1 [...] BE BASED ON THE PRIMARY CLINICAL RECORDS. [facility]. provides no warranty or guarantee of the accuracy or completeness of information in this document.
== END 2024-09-02 10:47 | disposition home or self-care (01) ==
LOC: RAD 10:48
PROVIDERS: PCP Family Medicine; Visit Provider Podiatrist Foot & Ankle Surgery
DX: M79.672 Pain in left foot (principal)
CPT/HCPCS: 73630